=== PATIENT | female | born 1945 | race Caucasian/White ===

== ENCOUNTER → 2023-06-09 10:36 | Outpatient (REF) | payer MEDICARE, BC, SELFPAY | LOC: RAD 10:36 | PROVIDERS: ATTENDING PHYSICIAN Internal Medicine Critical Care Medicine; FAMILY PHYSICIAN Family Medicine | DX: R91.1 Solitary pulmonary nodule (principal) | CPT/HCPCS: 71046 ==

== ENCOUNTER → 2024-02-17 12:35 | Outpatient (REF) | payer MEDICARE, BC, SELFPAY | LOC: RAD 12:35 | PROVIDERS: ATTENDING PHYSICIAN Family Medicine | DX: M25.551 Pain in right hip (principal) | CPT/HCPCS: 73502 ==

== ENCOUNTER → 2024-03-08 19:24 | Outpatient (REF) | payer MEDICARE, BC, SELFPAY | LOC: WDC 19:24 | PROVIDERS: ATTENDING PHYSICIAN Family Medicine | DX: Z12.31 Encounter for screening mammogram for malignant neoplasm of breast (principal) | CPT/HCPCS: 77063; 77067 ==

== ENCOUNTER 2024-05-30 09:06 | Inpatient (IN) | payer MEDICARE, BC, SELFPAY ==
--- NOTE | 2024-05-10 11:12 | CM ---
TC to patient re discharge needs post op.
Patient is to meet with PA this week and will discuss surgery and discharge expectations.
CM explained to patient the goal will be for home with outpatient therapy.
Patient with concerns as she lives alone and her children work.
She would prefer to to go skilled rehab post op.
CM explained to patient most patients go home with outpatient therapy and at this time I would not be able to say wheat her d/c needs would be.
Patient is aware she will be followed by a CM post op and seen by PT/OT to assess her needs and PA will discuss expectations.
[2024-05-12 14:10] LABS: Hematocrit 42.5 % (37.0-47.0); Mean Corp Hgb Conc. 32.9 g/dL (33.0-37.0); Mean Corpuscular Hgb 31.1 pg (27.0-31.0); Mean Corpuscular Volume 94.4 fL (81.0-99.0); Platelet Count 290 10^3/uL (130-400); Red Cell Dist. Width 12.2 % (11.5-14.5)
[2024-05-12 14:27] VITALS: BMI 21.5
[2024-05-12 14:43] LABS: Glycohemoglobin (HgbA1c) 5.3 % (4.0-5.6)
[2024-05-12 15:02] LABS: ALT (SGPT) 27 U/L (0-35); AST (SGOT) 27 U/L (14-36); Albumin 4.6 g/dl (3.5-5.0); Alkaline Phosphatase 89 U/L (38-126); Blood Urea Nitrogen 24 mg/dl (7-17); Calcium 9.7 mg/dl (8.4-10.2); Carbon Dioxide 27 mmol/L (22-30); Chloride 101 mmol/L (98-107); Estimated Creatinine Clearance 60 ml/min; Glucose 80 mg/dl (70-99); Sodium 139 mmol/L (135-145); Total Bilirubin 0.4 mg/dl (0.2-1.3); Total Protein 7.5 g/dl (6.3-8.2); eGFR > 60.00
[2024-05-19 13:33] VITALS: BMI 21.5
[2024-05-30] VITALS (12 sets, daily range): BP systolic 107–141; BP diastolic 59–91; PULSE 59; O2SAT 100; BMI 21.5
[2024-05-30] MEDS: CELEBREX 200 MG PO (10:10)
[2024-05-30] MEDS: TYLENOL 650 MG PO ×5 (10:11→23:28)
[2024-05-30] MEDS: NORMOSOL-R/PLASMALYTE-A 1000 IV ×2 (10:16→17:23)
[2024-05-30] MEDS: DILAUDID 0.25 MG IV (14:27)
[2024-05-30] MEDS: ROXICODONE 5 MG PO (14:27)
--- NOTE | 2024-05-30 15:03 | W.PN.UPDATE ---
Update Note
Progress Note Update
R hip OA s/p R BARRINGTON w/ Dr Lyon 05/30/24
DVT prophylaxis - ASA, b/l venous foot pumps
HTN - + parameters - monitor BP
Mild cognitive impairment - minimize opioids as able
Interstitial lung disease with bronchiectasis
Recurrent pneumonia
History of spontaneous pneumothorax
Pulmonary nodules
- Monitor O2
- IS
HLD
Osteopenia
Vitamin D deficiency
Hearing impairment
History of tobacco abuse
[2024-05-30] MEDS: LIDOCAINE 4% PATCH 2 PATCH TOPICAL (17:21)
[2024-05-30] MEDS: ASPIRIN 325 MG PO (17:22)
[2024-05-30] MEDS: NEURONTIN 100 MG PO (17:22)
[2024-05-30] MEDS: TORADOL 15 MG IV (17:22)
[2024-05-30] MEDS: CYKLOKAPRON 650 MG PO (17:23)
[2024-05-30] MEDS: VITAMIN D3 (cholecalciferol) 25 MCG PO (17:28)
[2024-05-30] MEDS: BACTROBAN 2% OINTMENT 1 APPLIC NASAL (20:07)
[2024-05-30] MEDS: DECADRON 4 MG PO (20:07)
[2024-05-30] MEDS: SENOKOT 17.2 MG PO (20:08)
[2024-05-30] MEDS: ANCEF 5 IV (20:09)
[2024-05-30] MEDS: COLACE 100 MG PO (20:09)
[2024-05-30] MEDS: NEURONTIN 300 MG PO (22:56)
[2024-05-30] MEDS: PEPCID 20 MG PO (22:57)
[2024-05-30] MEDS: ROXICODONE 10 MG PO (23:35)
[2024-05-31] MEDS: ANCEF 5 IV (03:01)
[2024-05-31] MEDS: TYLENOL 650 MG PO ×2 (03:01→12:33)
[2024-05-31 03:10] VITALS: BP 106/61
[2024-05-31 07:14] VITALS: BP 115/68
[2024-05-31] MEDS: ROXICODONE 10 MG PO (08:14)
[2024-05-31] MEDS: DECADRON 4 MG PO (08:15)
[2024-05-31] MEDS: CELEBREX 200 MG PO (08:15)
[2024-05-31] MEDS: LIDOCAINE 4% PATCH 2 PATCH TOPICAL (08:15)
[2024-05-31] MEDS: COLACE 100 MG PO (08:16)
[2024-05-31] MEDS: ASPIRIN 325 MG PO (08:16)
[2024-05-31] MEDS: SENOKOT 17.2 MG PO (08:16)
[2024-05-31] MEDS: NEURONTIN 100 MG PO (08:17)
[2024-05-31] MEDS: BACTROBAN 2% OINTMENT 1 APPLIC NASAL (08:17)
[2024-05-31] MEDS: VITAMIN D3 (cholecalciferol) 25 MCG PO (08:17)
--- NOTE | 2024-05-31 09:37 | W.PN.ORTHO ---
Today's Communication / Plan
-
Await PT and OT recs.
D/c later today if remaining clinically stable.
Assessment
.
Distal Motor Intact: Yes
Dressing:
Old scant incisional bleeding. Dressing otherwise C/D/I.
Assessment:
R hip OA s/p Lorena andrea/ Dr Lyon 05/30/24
DVT prophylaxis - ASA, b/l venous foot pumps
HTN - + parameters - BPs stable
Mild cognitive impairment - continue to minimize opioids as able
Interstitial lung disease with bronchiectasis
Recurrent pneumonia
History of spontaneous pneumothorax
Pulmonary nodules
- O2 stable on RA, lungs CTA b/l
HLD
Osteopenia
Vitamin D deficiency
Hearing impairment
History of tobacco abuse
Plan
.
Surgery / Date: Lorena andrea/ Dr Lyon 05/31/24
DVT Prophylaxis: Aspirin
Activity:
Out of bed.
PT/OT
Discharge Plan: Home w/ Outpatient PT (vs home w/ VN)
Subjective
.
.:
Patient resting comfortably in her bed.
R hip pain well controlled w/ current pain meds.
Denies any new significant complaints.
Eager for potential d/c today.
Vital Signs and Labs
.
Vital Signs and Labs:
Lab Results
05/12/24 13:08
05/12/24 13:08
Temp Pulse Resp BP Pulse Ox
97.6 F 57 16 115/68 96
05/31/24 07:14 05/31/24 07:14 05/31/24 07:14 05/31/24 07:14 05/31/24 07:14
Non-invasive Hgb result: 14.6
Physical Exam
-
HEENT: No pallor, cyanosis, or jaundice. Throat clear.
NECK: Supple. No JVD.
RESPIRATORY: Lungs clear to auscultation.
CVS: S1, S2 normal. RRR.�
ABDOMEN: Soft, non-tender. No distension.
EXTREMITIES: Strength equal, no calf pain with palpation/dorsiflexion. Calves soft.
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 Mild cognitive deficits at baseline. purse maker grossly intact
[2024-05-31 10:09] VITALS: BP 118/61; PULSE 66; O2SAT 99
[2024-05-31] MEDS: ZOFRAN 4 MG IV (10:48)
[2024-05-31] MEDS: TYLENOL PO (10:55)
[2024-05-31 11:09] VITALS: BP 112/61
[2024-05-31 11:17] VITALS: BP 107/69; BP 113/67; PULSE 62
--- NOTE | 2024-05-31 12:01 | CM ---
Met with pt at bedside
Pt reports she lives alone in a 1 story condo; 6 steps to enter - Family to assist when discharged to home
Independent at baseline, ambulates with no device
DME - rolling walker, single point cane, hip kit, raised toilet seat
SNF/HH - denies past hx
Has ride home
PCP - Scotty Ceballos
Pharm - [facility]
Has appt scheduled tomorrow at [facility] for outpatient PT. Has Rx and has transport
Given IMM
Plan - home with outpatient PT
--- NOTE | 2024-05-31 12:19 | W.DS.TRANS ---
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
-
Discharge Instructions:
Sleep Apnea Risk Low
Discharge Diagnosis/Procedures R hip OA s/p R BARR[place] w/ Dr Lyon 05/30/23
Diet Regular
Activity As tolerated,With Walker
Driving Restrictions Not until seen by your Dr
Bathing Restrictions OK to Shower
Other Services PT
Wound Care Dressing to be removed 1 week post-surgery.
Matheus to be removed at 2 week follow-up with
surgeon's office.
Instructions:
Stand-Alone Forms: Total Hip/Knee Replacement D/C
Changes to Home Medications: Yes
Discharge Medications:
DC Medications w/original date entered in [facility]
cholecalciferol (vitamin D3) 25 mcg (1,000 unit) tablet (Vitamin D3) 25 mcg PO DAILY 05/11/24
lbafcpdw-[id number]-[id number] 8 mg-folic 400 mcg-K 50 mcg-lutein 300 mcg tablet (Centrum Silver Women) 1 tab PO DAILY 05/11/24
celecoxib 200 mg capsule 200 mg PO DAILY anti-inflammatory #14 caps 05/12/24
dexamethasone 4 mg tablet 4 mg PO BID inflammation #6 tabs 05/12/24
famotidine 20 mg tablet 20 mg PO HS GI prophylaxis #30 tabs 05/12/24
gabapentin 300 mg capsule 300 mg PO HS sleep/pain #10 caps 05/12/24
mupirocin 2 % topical ointment 1 applic topical BID infection prevention #1 tube 05/12/24
ondansetron 4 mg disintegrating tablet 4 mg PO Q6H PRN n/v #20 tabs 05/12/24
oxycodone 5 mg tablet 5 mg PO Q6H PRN 1 tab moderate pain, 2 tabs severe pain #30 tabs 05/12/24
acetaminophen 325 mg tablet 650 mg (2 x 325 mg) PO Q4HWA #60 tabs 05/31/24
amlodipine 5 mg tablet 5 mg PO HS #1 tab 05/31/24
aspirin 325 mg tablet 325 mg PO DAILY #30 tabs 05/31/24
docusate sodium 100 mg capsule 100 mg PO BID #30 caps 05/31/24
gabapentin 100 mg tablet 100 mg PO BID@0800,1600 neuropathic pain #1 tab 05/31/24
lidocaine 4 % topical patch 2 patch topical DAILY #30 ea 05/31/24
sennosides 8.6 mg tablet (Judith-laurence) 17.2 mg (2 x 8.6 mg) PO BID #30 tabs 05/31/24
Home Medication Changes
celecoxib 200 mg capsule 200 mg PO DAILY anti-inflammatory #14 caps 05/12/24
dexamethasone 4 mg tablet 4 mg PO BID inflammation #6 tabs 05/12/24
famotidine 20 mg tablet 20 mg PO HS GI prophylaxis #30 tabs 05/12/24
gabapentin 300 mg capsule 300 mg PO HS sleep/pain #10 caps 05/12/24
mupirocin 2 % topical ointment 1 applic topical BID infection prevention #1 tube 05/12/24
ondansetron 4 mg disintegrating tablet 4 mg PO Q6H PRN n/v #20 tabs 05/12/24
oxycodone 5 mg tablet 5 mg PO Q6H PRN 1 tab moderate pain, 2 tabs severe pain #30 tabs 05/12/24
acetaminophen 325 mg tablet 650 mg (2 x 325 mg) PO Q4HWA #60 tabs 05/31/24
aspirin 325 mg tablet 325 mg PO DAILY #30 tabs 05/31/24
docusate sodium 100 mg capsule 100 mg PO BID #30 caps 05/31/24
gabapentin 100 mg tablet 100 mg PO BID@0800,1600 neuropathic pain #1 tab 05/31/24
lidocaine 4 % topical patch 2 patch topical DAILY #30 ea 05/31/24
sennosides 8.6 mg tablet (Judith-laurence) 17.2 mg (2 x 8.6 mg) PO BID #30 tabs 05/31/24
Pending Results: No
== END 2024-05-31 13:18 | disposition home or self-care (01) | DRG 470 ==
LOC: 2 SOUTH 09:06
PROVIDERS: ADMITTING PHYSICIAN Specialist; FAMILY PHYSICIAN Family Medicine
PROC: 0SR902A Replacement of Right Hip Joint with Metal on Polyethylene Synthetic Substitute, Uncemented, Open Approach (ICD-10-PCS; 2024-05-30)
DX: M16.11 Unilateral primary osteoarthritis, right hip (principal); J84.9 Interstitial pulmonary disease, unspecified; I10 Essential (primary) hypertension; E55.9 Vitamin D deficiency, unspecified; J47.9 Bronchiectasis, uncomplicated; H91.90 Unspecified hearing loss, unspecified ear; G31.84 Mild cognitive impairment of uncertain or unknown etiology; M85.80 Other specified disorders of bone density and structure, unspecified site; E78.2 Mixed hyperlipidemia; Z87.891 Personal history of nicotine dependence; Z79.82 Long term (current) use of aspirin; Z79.899 Other long term (current) drug therapy
CPT/HCPCS: 73502; 80053; 83036; 85027; 87070; 93005; 97110; 97116; 97162; 97166; 97530; 97535; C1713; C1776

== ENCOUNTER 2024-06-07 13:56 | Inpatient (IN) | payer MEDICARE, BC, SELFPAY ==
[2024-06-07] VITALS (26 sets, daily range): BP systolic 103–155; BP diastolic 57–84; BMI 21.7; BMI 23.7
[2024-06-07 09:43] LABS: Hematocrit 39.6 % (37.0-47.0); Hemoglobin 14.1 g/dL (12.0-16.0); Mean Corp Hgb Conc. 35.6 g/dL (33.0-37.0); Mean Corpuscular Hgb 31.7 pg (27.0-31.0); Mean Platelet Volume 9.5 fL (7.4-10.4); Platelet Count 356 10^3/uL (130-400); Red Blood Cell Count 4.45 10^6/uL (4.20-5.40); Red Cell Dist. Width 12.4 % (11.5-14.5); White Blood Cell Count 9.3 10^3/uL (4.8-10.8)
[2024-06-07 09:48] LABS: ALT (SGPT) 25 U/L (0-35); AST (SGOT) 26 U/L (14-36); Albumin 3.1 g/dl (3.5-5.0); Alkaline Phosphatase 101 U/L (38-126); Blood Urea Nitrogen 55 mg/dl (7-17); Calcium 9.3 mg/dl (8.4-10.2); Carbon Dioxide 18 mmol/L (22-30); Chloride 93 mmol/L (98-107); Glucose 96 mg/dl (70-99); Lipase 24 U/L (23-300); Potassium 4.8 mmol/L (3.5-5.1); Sodium 123 mmol/L (135-145); Total Bilirubin 1.3 mg/dl (0.2-1.3); Total Protein 5.8 g/dl (6.3-8.2); eGFR 35.45
[2024-06-07 09:50] LABS: Band Neutrophils 28 % (0-3); Lymphocytes 10 % (20-51); Metamyelocytes 1 % (-); Monocytes 2 % (2-9); Platelets Checked Yes; Segmented Neutrophils 59 % (42-75)
[2024-06-07 09:51] LABS: Normal RBC Morphology Yes; Total Cells Counted 100
[2024-06-07 09:52] LABS: COVID-19 Antigen Negative (Negative)
--- NOTE | 2024-06-07 10:00 | ED.GENMED ---
History of Present Illness
General
Chief Complaint: Abdominal Symptoms
Time Seen by Provider: 06/07/24 10:00
History of Present Illness
History of Present Illness:
TIME OF INITIAL ENCOUNTER: 9:00 AM
HPI: Patient had a right-sided hip replacement 8 days ago. 4 days ago, she developed nausea and vomiting. She has been having chest cramping and now abdominal cramping. She has not had diarrhea. She denies any prior abdominal surgeries.
EXAM:
GENERAL: The patient appears somewhat uncomfortable
HEENT: Dry oral mucosa
CARDIOVASCULAR: No murmurs, normal heart rate, regular rhythm, No chest wall tenderness
PULMONARY: No respiratory distress, breath sounds are clear and equal
ABDOMEN: Borderline positive peritoneal signs dry, somewhat firm abdomen with diffuse abdominal tenderness
NEUROLOGIC: Fair strength all extremities, no coordination deficits
PSYCHIATRIC: Appropriate mental status, normal insight and judgement
EXTREMITIES: Nontender, no edema, moves all extremities equally
SKIN: No rash, no lesions
NUMBER AND COMPLEXITY OF PROBLEMS ADDRESSED AT THE ENCOUNTER
� Chronic conditions affecting care: High blood pressure, anxiety, right hip replacement 2024
� Acute Exacerbation and/or Progression of Chronic Illness: This is an acute problem
� Differential Diagnosis includes: Dehydration, LONG, viral syndrome, UTI, electrolyte abnormality, bowel perforation, mesenteric adenitis
AMOUNT AND/OR COMPLEXITY OF DATA TO BE REVIEWED AND ANALYZED
� I performed an independent evaluation of and my interpretation is:
EKG:
CT: I personally reviewed CT imaging and I agree with radiologist interpretation that there is bowel perforation along with free fluid
X-rays:
Laboratory Studies: White count and hemoglobin are normal however the patient does have bandemia with 28% bands, LONG noted, hyponatremia also noted, low bicarb noted
Other:
� Review of other/old records: I reviewed the notes when patient was here recently in which Dr. Lyon performed the right hip surgery
� Clinical information was obtained by an independent historian: I spoke to daughter at bedside
� Prescriptions/Medications Considered but not given:
� Further testing considered but not performed:
RISK OF COMPLICATIONS AND/OR MORBIDITY OR MORTALITY OF PATIENT MANAGEMENT
� Social determinants of health affecting care: Lives at home
� Discussion with other providers: I discussed case with Dr. Cyr and then I notified general surgery who recommended messaging colorectal surgery. I messaged Dr. Moreno at 1:08 PM. I also talked to Dr. Mills who said he will
continue to try to get a hold of colorectal surgery.
� Escalation of care including admission/observation vs risk of discharge considered: The patient was premedicated for CT as she does have a history of hives related to iodine by IV in the past. She denied
anaphylactic/angioedema type of symptoms in the past. CT imaging very concerning for bowel perforation likely involving large bowel. Given the concerns for sepsis with bandemia and elevated lactic, Zosyn was given and the patient did receive 2 L
of IV fluid while in the emergency department.
ANY OTHER UPDATES:
Phy Exam
Physical Exam
Physical Exam:
See HPI
Course
Orders/Labs/Results
Orders:
Orders
06/07/24 09:14
Electrocardiogram (*1) Urgent
Reason for Study: Abdominal Pain
EKG- Treatment ONCE
06/07/24 09:19
COVID-19 Antigen Urgent
Source: Nasal Swab
Complete Blood Count/With Diff Urgent
Comprehensive Metabolic Panel Urgent
Lipase Urgent
Manual Differential Urgent
Serum Osmolality Urgent
Comment: ADD ON\\
Influenza A+B Rapid Molecular Urgent
ENDY Source: Nasal Swab
Specimen Description:
06/07/24 10:01
Add On- LAB Urgent
Tests Added?: serum osm
06/07/24 10:18
CT Abd/pelvis W Iv Cont Urgent
Comment:
Reason For Exam: diffuse abd pain
0.9% Sodium Chloride 500 ml [Nss] 500 ml IV BOLUS
06/07/24 10:23
Dexamethasone Sod Phosphate [Decadron] 10 mg IV NOW STA
Diphenhydramine [Benadryl] 25 mg IV NOW STA
06/07/24 10:26
Lactic Acid Q4H
Comment: CANCEL 2nd LACTIC ACID IF 1st LACTIC ACID IS LESS THAN 2
Blood Culture Q30M
ENDY Source: Blood/Venous
Specimen Description:
06/07/24 10:27
Osmolality, Random Urine Urgent
Date Specimen was Collected: 06/07/24
Time Specimen was Collected: 10:26
Urinalysis Reflex To Culture Urgent
Date Specimen was Collected: 06/07/24
Time Specimen was Collected: 10:27
Urine Microscopic Reflex Cult Urgent
Urine Sodium Urgent
Date Specimen was Collected: 06/07/24
Time Specimen was Collected: 10:26
Blood Culture Q30M
ENDY Source: Blood/Venous
Specimen Description:
Urine Culture Urgent
ENDY Source: U
Specimen Description:
Date Specimen was Collected: 06/07/24
Time Specimen was Collected: 10:27
06/07/24 12:44
0.9% Sodium Chloride 500 ml [Nss] 500 ml IV BOLUS
Piperacillin/Tazo 3.375 Gram [Zosyn] 3.375 gram in 50 ml IV NOW
06/07/24 13:20
Consult Surgery [SURGICAL CONSULT] Stat
Consulting Provider: Thien Hurst
Was physician already notified: Yes
Reason for consult: bowel perforation
06/07/24 13:22
ColoRectal Surgery Consult Stat
Consulting Provider: Jesse Moreno
Was physician already notified: Yes
Reason for consult: bowel perforation
06/07/24 13:24
0.9% Sodium Chloride 1000 ml [Nss] 1,000 ml IV BOLUS
06/07/24 14:15
Lactic Acid Q4H
Comment: CANCEL 2nd LACTIC ACID IF 1st LACTIC ACID IS LESS THAN 2
Abnormal Lab Results
06/07/24 06/07/24 06/07/24
09:19 10:26 10:27
MCH 31.7 H pg
(27.0-31.0)
Abs Neuts (Manual) 8.0 H 10^3/uL
(1.4-6.5)
Band Neutrophils 28 H %
(0-3)
Lymphocytes (Manual) 10 L %
(20-51)
Sodium 123 L mmol/L
(135-145)
Chloride 93 L mmol/L
(98-107)
Carbon Dioxide 18 L mmol/L
(22-30)
BUN 55 H mg/dl
(7-17)
Creatinine 1.5 H mg/dL
(0.6-1.0)
Lactic Acid 4.3 H* mmol/L
(0.7-2.0)
Total Protein 5.8 L g/dl
(6.3-8.2)
Albumin 3.1 L g/dl
(3.5-5.0)
Urine Ketones 2+ A
(Negative)
Ur Occult Blood Reflex 1+ A
(Negative)
Urine Bilirubin 1+ A
(Negative)
Urine Urobilinogen 2+ A
(Neg - 1+)
Leukocyte Esterase Rfl 1+ A
(Negative)
Urine Bacteria (Reflex) Moderate A
(Negative)
Urine Sodium 6 L mmol/L
(30-90)
Urine Albumin (Reflex) 3+ A
(Neg - Trace)
06/07/24 09:19
06/07/24 09:19
Vital Signs
Initial and Last Documented VS:
Initial Vital Signs
Temp Pulse Resp BP Pulse Ox
36.4 C 87 20 103/62 97
06/07/24 09:10 06/07/24 09:10 06/07/24 09:10 06/07/24 09:10 06/07/24 09:10
Last Documented Vital Signs
Temp Pulse Resp BP Pulse Ox
36.8 C 82 26 120/59 95
06/07/24 13:19 06/07/24 13:00 06/07/24 13:00 06/07/24 13:00 06/07/24 13:00
*Critical Care Note
Total Time (30-74mins, 75-104mins- exclusive of procedures): 60
comment:
The patient has an elevated lactic acid level along with bandemia. CT is markedly abnormal. I discussed case emergently with general surgery who recommended colorectal surgery to be involved. Dr. Mills was able to contact colorectal surgery. The
patient was given 2 L of IV fluids as well as IV Zosyn emergently.
ED Attending Note
-
Portions of this chart may have been created with voice recognition software.� Occasional wrong word or��sound alike� substitutions may have occurred due to the inherent limitations of voice recognition software.
Discharge Plan
Departure
Patient Disposition: Admit
Date of Disposition: 06/07/24
Time of Disposition: 12:49
Presentation/result/management discussed w/ accepting MD/DO: Hospitalist
Discharge Problem:
Perforation bowel
Prescriptions:
No Action
cholecalciferol (vitamin D3) [Vitamin D3] 25 mcg (1,000 unit) Tablet
25 mcg PO DAILY
Centrum Silver Women 8 mg iron-400 mcg-50 mcg Tablet
1 tab PO DAILY
celecoxib 200 mg capsule
200 mg PO DAILY Qty: 14 0RF
Rx Instructions:
*take with food
*space out 2 hours from aspirin
famotidine 20 mg tablet
20 mg PO HS Qty: 30 0RF
gabapentin 300 mg capsule
300 mg PO HS Qty: 10 0RF
aspirin 325 mg Tablet
325 mg PO DAILY Qty: 30 0RF
Rx Instructions:
Take daily x4 weeks for blood clot prevention; then resume Aspirin 81 mg daily.
docusate sodium 100 mg Capsule
100 mg PO BID Qty: 30 0RF
lidocaine 4 % Adhesive Patch,Medicated
2 patch topical DAILY Qty: 30 0RF
Rx Instructions:
apply sides of right thigh/hip.
amlodipine 5 mg Tablet
5 mg PO HS Qty: 1 0RF
Rx Instructions:
HOLD IF systolic blood pressure <130 while on Oxycodone
gabapentin 100 mg Tablet
100 mg PO BID@0800,1600 Qty: 1 0RF
Rx Instructions:
Patient takes at home. Bedtime dose increased to accommodate for post-surgical pain/sleep.
sennosides [Judith-laurence] 8.6 mg tablet
17.2 mg PO BID
acetaminophen 325 mg tablet
650 mg PO Q4HPRN PRN (Reason: mild pain)
ondansetron 4 mg tablet,disintegrating
4 mg PO Q6HPRN PRN (Reason: n/v)
Rx Instructions:
take 1/2h b/f pain med if recurrent nausea
allow to dissolve in mouth w/o water
oxycodone 5 mg tablet
5 mg PO Q6HPRN PRN (Reason: 1 tab moderate pain, 2 tabs severe pain)
Referrals:
Scotty Ceballos MD [Family Provider] -
Interventions
Interventions:
*Risk Screen - Suicide Last Done: 06/07/24 09:10
*General Assessment Last Done: 06/07/24 09:10
*Neglect/Abuse Screening Last Done: 06/07/24 09:10
*ED COVID-19 Vaccine History Last Done: 06/07/24 10:17
SA-Pttgde-Oilmwviyrp Assessment Last Done: 06/07/24 12:22
Discharge Date and Time
Print Language: ISRAELI
[2024-06-07] MEDS: DECADRON 10 MG IV (10:45)
[2024-06-07] MEDS: BENADRYL 25 MG IV (10:45)
[2024-06-07] MEDS: NSS 500 IV ×2 (10:45→13:12)
[2024-06-07 10:47] LABS: Urine Albumin 3+ (Neg - Trace); Urine Bilirubin 1+ (Negative); Urine Character Cloudy (Clear); Urine Color Amber; Urine Glucose Negative (Negative); Urine Ketone 2+ (Negative); Urine Leukocyte 1+ (Negative); Urine Nitrite Negative (Negative); Urine Occult Blood 1+ (Negative); Urine Specific Gravity 1.025 (<1.030); Urine Urobilinogen 2+ (Neg - 1+)
[2024-06-07 10:57] LABS: Urine Granular Cast >15 /LPF (0)
[2024-06-07 10:58] LABS: Urine Calcium Oxalate Crystals Seen
[2024-06-07 10:59] LABS: Urine Bacteria Moderate (Negative); Urine Squamous Cell 0-2 /LPF (Few)
[2024-06-07 11:00] LABS: Urine White Cell 0-2 /HPF (0-5)
[2024-06-07 11:01] LABS: Urine Red Blood Cell None Seen /HPF (0-2)
[2024-06-07 11:03] LABS: Urine Sodium 6 mmol/L (30-90)
[2024-06-07 11:14] LABS: Osmolality Urine 548 mOsm/kg (300-900)
[2024-06-07 11:15] LABS: Lactic Acid 4.3 mmol/L (0.7-2.0)
[2024-06-07 11:59] LABS: Osmolality Serum 277 mOsm/kg (275-300)
[2024-06-07] MEDS: ZOSYN 50 IV ×2 (13:13→20:04)
--- NOTE | 2024-06-07 13:29 | W.PN.UPDATE ---
Update Note
Progress Note Update
Patient with acute abdomen due to acute bowel perforation. Case discussed with general surgery and colorectal surgery over [place] [facility]. As per that group discussion colorectal surgery is seeing the patient immediately. I have ordered a 3rd L of
normal saline. Will put bridging orders in. Full H&P to follow.
--- NOTE | 2024-06-07 13:31 | HPS.HSE ---
Family Physician
-
Family Physician: Scotty Ceballos
Chief Complaint
-
Abdominal pain, nausea, vomiting
History of Present Illness
79 y/o F with PMHx essential HTN, R hip BARRINGTON on 05/30/24, mild cognitive impairment, interstitial lung disease, bronchiectasis, h/o spontaneous PTX who presents with chief complaints of abdominal pain, nausea, vomiting. Patient symptoms started
approximately 4 days ago. She has had associated abdominal cramping as well as reports of chest cramping. Denies diarrhea.
In the ER CT scan of the abdomen pelvis showed bowel perforation, likely sigmoid.
Medical History
Past Medical History
Past Medical History: Reports Other (essential HTN, R hip B[place] on 05/30/24, mild cognitive impairment, interstitial lung disease, bronchiectasis, h/o spontaneous PTX )
Past Surgical History: Reports Orthopedic (R BARRINGTON on 05/30/24)
Social History
Tobacco: Former Smoker
Alcohol: Occasional
Drug: None
Family History
Family History: Not pertinent
Allergies / Home Medications
Allergies reflects when Allergies were last updated in [employer].
Home Medications with original date entered in [employer]
Allergy/Medication List:
Allergies
Allergy/AdvReac Type Severity Reaction Status Date / Time
iodine Allergy Hives Verified 06/07/24 09:13
Home Medications
cholecalciferol (vitamin D3) 25 mcg (1,000 unit) tablet (Vitamin D3) 25 mcg PO DAILY 05/11/24
yjuoabxh-riqz-weig 8 mg-folic 400 mcg-K 50 mcg-lutein 300 mcg tablet (Centrum Silver Women) 1 tab PO DAILY 05/11/24
celecoxib 200 mg capsule 200 mg PO DAILY anti-inflammatory #14 caps 05/12/24
famotidine 20 mg tablet 20 mg PO HS GI prophylaxis #30 tabs 05/12/24
gabapentin 300 mg capsule 300 mg PO HS sleep/pain #10 caps 05/12/24
amlodipine 5 mg tablet 5 mg PO HS #1 tab 05/31/24
aspirin 325 mg tablet 325 mg PO DAILY #30 tabs 05/31/24
docusate sodium 100 mg capsule 100 mg PO BID #30 caps 05/31/24
gabapentin 100 mg tablet 100 mg PO BID@0800,1600 neuropathic pain #1 tab 05/31/24
lidocaine 4 % topical patch 2 patch topical DAILY #30 ea 05/31/24
acetaminophen 325 mg tablet 650 mg PO Q4HPRN PRN mild pain 06/07/24
ondansetron 4 mg disintegrating tablet 4 mg PO Q6HPRN PRN n/v 06/07/24
oxycodone 5 mg tablet 5 mg PO Q6HPRN PRN 1 tab moderate pain, 2 tabs severe pain 06/07/24
sennosides 8.6 mg tablet (Judith-laurence) 17.2 mg PO BID 06/07/24
Review of Systems
-
History Source: Patient
A 12 point ROS was completed and negative except as noted: Yes
Physical Exam
Vital Signs
Vital Signs
Temp Pulse Resp BP Pulse Ox
98.2 F 82 26 120/59 95
06/07/24 13:19 06/07/24 13:00 06/07/24 13:00 06/07/24 13:00 06/07/24 13:00
Physical Exam
General: Other (.)
Laboratory Results
-
06/07/24 09:19
06/07/24 09:19
Laboratory Results
Lactic Acid 4.3 mmol/L (0.7-2.0) H* 06/07/24 10:26
Total Bilirubin 1.3 mg/dl (0.2-1.3) 06/07/24 09:19
AST 26 U/L (14-36) 06/07/24 09:19
ALT 25 U/L (0-35) 06/07/24 09:19
Alkaline Phosphatase 101 U/L (38-126) 06/07/24 09:19
Lipase 24 U/L (23-300) 06/07/24 09:19
Impression/Plan
-
Gen: appears in pain, Awake and alert, NCAT
Eyes: EOMI, PERRLA, no scleral icterus.
Neck: supple.
CV: RRR, +S1/S2, no m/r/g.
Resp: CTAB anteriorly, no rales, wheezes, or rhonchi.
Abd: Abdomen is moderately distended with hypoactive bowel sounds. There is exquisite, diffuse tenderness to palpation with either significant guarding or surgical abdomen.
Skin: No rashes.
Neuro: CN 2-12 intact, non-focal.
Psych: appears anxious due to pain
CT A/P: New findings suggesting perforated bowel probable sigmoid colon with associated retroperitoneal and intraperitoneal free air, air-fluid levels suggesting abscess formation and extraluminal stool. Mild small bowel dilatation probably ileus
due to reactive change. New. Tiny bilateral pleural effusions. New. Too small to characterize hypodense left renal lesion likely a benign cyst. Mild lingular bronchiectasis. Stable. This case was discussed with Dr. Dodd on 06/07/2024 at
12:50 PM. Critical value: Free air.
Acute sigmoid bowel perforation with acute surgical abdomen:
-as per prior update note, surgical services notified within minutes of when I was called to admit this patient
-2L NS ordered by ER, I have ordered a 3rd L NS followed by NS @ 125cc/hr
-pt clearly needs ex-lap emergently
-admission orders placed to ICU
-morphine/zofran PRN
Other problems:
Essential HTN: Hold Norvasc for now
R hip BARRINGTON on 05/30/24: c/s ortho
Mild cognitive impairment
Interstitial lung disease with bronchiectasis
h/o spontaneous PTX
FULL
SCDs (no pharmacological DVT prophylaxis at this moment as patient is likely going to the OR imminently)
--- NOTE | 2024-06-07 14:13 | CON.CRS ---
Consultation
-
Date/Time Consultation Requested: 06/07/2024, 13:13
Date/Time Consultation Performed: 06/07/2024, 14:13
Requesting Provider: Jones Sorensen MD
Performing Provider: Jesse Moreno MD
Reason for Consultation: perforated sigmoid colon
Medical History
-
Chief Complaint: abdominal pain
History of Present Illness:
71-year-old female, postop day 8 from a right hip replacement, presents to [facility] ER due to abdominal pain and nausea. The patient states this started about 5 days ago at night. Her symptoms started with abdominal pain which has
progressed significantly over the past few days. She started having nausea and vomited 4 days ago and every day since. Her last bowel movement was about 6 days ago and she has had only 2 bowel movements since surgery. She has been taking
oxycodone every 6 hours and alternating with Tylenol since her surgery. She has also been on a steroid Dosepak which ended the night that her abdominal pain started. Currently she feels distended and nauseous. The apex of her pain was last night
where it was so extremely painful that it woke her up out of sleep. She her last colonoscopy was 2 years ago elsewhere and was all negative per patient. She has never had abdominal surgery before. She denies a family history of rectal or colon
cancer. Currently she is on aspirin 325 mg and is on no other blood thinners.
In the ER her vitals are normal. WBC is 9.3. Lactic acid is 4.1. CT of the abdomen and pelvis showed perforated bowel probable sigmoid colon with an associated retroperitoneal intraperitoneal free air, air-fluid level suggesting abscess
formation, and extraluminal stool. Given these findings, we have been consulted for surgical opinion.
Past Medical History
Past Medical History: HTN and Other (interstitial lung disease, bronchiectasis, h/o spontaneous PTX)
Past Surgical History: Orthopedic (right hip surgery - 8 days prior to admission) and Other (breast lumpectomy - negative)
Social History
Tobacco: Former Smoker
Alcohol: Occasional
Drug: None
Family History
Family History: Reviewed & Not Pertinent
Allergies / Home Medications
Allergy/AdvReac Type Severity Reaction Status Date / Time
iodine Allergy Hives Verified 06/07/24 09:13
�Medication �Instructions �Recorded �Confirmed �Type
cholecalciferol (vitamin D3) 25 25 mcg PO DAILY 05/11/24 06/07/24 History
mcg (1,000 unit) tablet (Vitamin
D3)
batrwonn-fbdd-vehg 8 mg-folic 400 1 tab PO DAILY 05/11/24 06/07/24 History
mcg-K 50 mcg-lutein 300 mcg tablet
(Centrum Silver Women)
celecoxib 200 mg capsule 200 mg PO DAILY anti-inflammatory 05/12/24 06/07/24 Rx
#14 caps
famotidine 20 mg tablet 20 mg PO HS GI prophylaxis #30 tabs 05/12/24 06/07/24 Rx
gabapentin 300 mg capsule 300 mg PO HS sleep/pain #10 caps 05/12/24 06/07/24 Rx
amlodipine 5 mg tablet 5 mg PO HS #1 tab 05/31/24 06/07/24 Rx
aspirin 325 mg tablet 325 mg PO DAILY #30 tabs 05/31/24 06/07/24 Rx
docusate sodium 100 mg capsule 100 mg PO BID #30 caps 05/31/24 06/07/24 Rx
gabapentin 100 mg tablet 100 mg PO BID@0800,1600 05/31/24 06/07/24 Rx
neuropathic pain #1 tab
lidocaine 4 % topical patch 2 patch topical DAILY #30 ea 05/31/24 06/07/24 Rx
acetaminophen 325 mg tablet 650 mg PO Q4HPRN PRN mild pain 06/07/24 06/07/24 History
ondansetron 4 mg disintegrating 4 mg PO Q6HPRN PRN n/v 06/07/24 06/07/24 History
tablet
oxycodone 5 mg tablet 5 mg PO Q6HPRN PRN 1 tab moderate 06/07/24 06/07/24 History
pain, 2 tabs severe pain
sennosides 8.6 mg tablet (Judith-laurence) 17.2 mg PO BID 06/07/24 06/07/24 History
Review of Systems
-
History Source: Patient
Abdomen/GI: Abdominal Pain, Nausea, Vomiting and Constipated
A 10 point review of systems was completed, and was negative except as per HPI.
Physical Exam
Vital Signs
Temp 98.2 F 06/07/24 13:19
Pulse 82 06/07/24 13:00
Resp Rate 26 06/07/24 13:00
Blood pressure 120/59 06/07/24 13:00
SaO2 95 06/07/24 13:00
06/06/24 06/07/24 06/08/24
06:59 06:59 06:59
Actual Weight 64.7 kg
Body Mass Index (BMI) 21.7
Lab Results / Allergies
06/07/24 09:19
06/07/24 09:19
WBC 9.3 10^3/uL (4.8-10.8) 06/07/24 09:19
Hgb 14.1 g/dL (12.0-16.0) 06/07/24 09:19
Hct 39.6 % (37.0-47.0) 06/07/24 09:19
Plt Count 356 10^3/uL (130-400) 06/07/24 09:19
Allergy/AdvReac Type Severity Reaction Status Date / Time
iodine Allergy Hives Verified 06/07/24 09:13
Physical Exam
General: Other (in pain)
GI: Tender (severe tenderness in all four quadrants) and Distended
Skin: Warm
Neuro: AO x 3
Data Reviewed
-
CT Scan: Image Personally Visualized and interpreted, Report Reviewed by me, Discussed with Patient and Discussed with Family
Labs: Labs Reviewed by me, Discussed with Physician, Discussed with Patient and Discussed with Family
Assessment / Plan
-
Assessment: 79-year-old female with right hip replacement 5 days ago presents to [place] ER complaining of abdominal pain, distention, and vomiting for the past 5 days, found to have a perforation in the sigmoid colon with retro and
intraperitoneal free air as well as extraluminal stool
Plan:
-Patient requires an urgent exploratory laparotomy given the findings on CT. Discussed this with patient and daughter Susanna at bedside. Patient is agreeable for surgery.
-Wound RN for colostomy marking
-N.p.o.
-Continue IV antibiotics
-Teds and SCDs for OR
-ICU level of care
-Plan for surgery in the next 1 to 2 hours. Discussed at length with myself, Dr. Moreno, and patient and daughter at bedside.
--- NOTE | 2024-06-07 14:30 | WOUNDNOTE ---
WON RN NOTE: Stoma sited patient as requested, for surgery today. Abdomen distended and patient having too much pain to assess while sitting or standing. No history of abdominal surgery states patient. LUQ marked 8cm from midline and 3.5cm proximal
from umbilical line. LLQ marked 6.5cm from midline and 3.5cm distal from umbilical line. RUQ marked 7.5cm from midline and 4cm proximal from umbilical line. RLQ marked 7.5cm from midline and 3.5cm distal from umbilical line. Patient and daughter at
bedside aware that surgeon has final decision on location if ostomy needed. Will follow.
[2024-06-07 15:00] LABS: INR 1.11; PT 14.6 Sec (11.4-14.6)
[2024-06-07 15:01] LABS: APTT 27.5 Sec (23.4-35.0); Lactic Acid 1.8 mmol/L (0.7-2.0)
[2024-06-07] MEDS: NSS 1000 IV (15:09)
--- NOTE | 2024-06-07 19:34 | W.IMMPOSTOP ---
Surgical Immed Post Op Note
-
Primary Surgeon: Jesse Moreno MD
Assisting Surgeon: CURTIS Bowman
Pre-op Diagnosis: Pneumoperitoneum
Post-op Diagnosis: Perforated stercoral colitis
Procedure Performed: Exploratory laparotomy, lysis of his adhesions, sigmoidectomy, creation of end colostomy
Anesthesia Type: General
Specimen / Cultures: Sigmoid
Estimated Blood Loss: 75
IVF: 3.7 L
UOP: 400 mL
Complications: None
Operative Findings: Identified feculent ascites on entry; carefully freed up adhesions between the omentum and the small bowel as well as interloop adhesions between the small bowel and sigmoid colon; identified a 5 x 3 cm patch of necrotic wall of
the mid sigmoid colon with large perforation and stool within the abdomen; in order to improve visualization, irrigated the abdomen with 4 L of warm saline; ran the large bowel from the cecum to the descending colon which appeared healthy and normal
in caliber; freed up the small bowel along its entire length from interloop adhesions and rind and no perforations or ischemic portions of the small bowel identified; confirmed NGT placement by palpating the stomach; the anterior wall of the stomach
and first portion of the duodenum appeared healthy; transected 2 cm proximal from the perforation on healthy bowel (at the junction of the descending and sigmoid colon) and transected distally on the distal sigmoid colon; identified the left ureter
and divided the mesentery with the Voyant LigaSure; freed up the descending colon from the lateral attachments up to the proximal descending; irrigated the abdomen with 5 L of warm saline; tagged the Sue's pouch with a 3-0 Prolene; placed a 19
[place] drain from the RLQ into the pelvis and along the Brenna staple line; freed up the descending colon from omental attachments and lateral attachments up to the splenic flexure; placed Seprafilm and closed the fascia with 0 PDS; skin closed
with intermittent enrique and Telfa morenita; matured the colostomy in the LUQ in a brooked fashion; as a precaution due to her respiratory history, anesthesia left her intubated; only required a small dose of Jacob gtt during the surgery;
--- NOTE | 2024-06-07 19:51 | OR.RPT ---
Operative Report
Operative Report
DATE OF OPERATION: 06/07/2024
SURGEON: Jesse Moreno MD
PREOPERATIVE DIAGNOSIS: Pneumoperitoneum, possible colonic perforation
POSTOPERATIVE DIAGNOSIS: Perforated stercoral colitis
OPERATION: Exploratory laparotomy, lysis of adhesions, sigmoidectomy, creation of end-colostomy
ASSISTANTS:
1. CURTIS Bowman
ANESTHESIA: General
ESTIMATED BLOOD LOSS: 75 mL
UOP: 400 mL
IVF: 3.7 L
FINDINGS:
1. Encountered diffuse feculent peritonitis with large perforation in the mid-sigmoid colon associated with a 5 x 3 cm patch of necrotic bowel wall, most likely due to stercoral colitis
2. Diffuse inflammatory rind scattered around small bowel; lysed adhesions meticulously between omentum, small bowel and sigmoid colon; irrigated with 4 L of warm saline to clear out the stool
3. Performed sigmoidectomy with transection points at the descending�sigmoid junction and distal sigmoid; washed abdomen with an additional 5 L of warm saline and placed 3-0 Prolene marking stitch at the staple line of the Brenna's pouch
4. Created a descending end colostomy at the left upper quadrant marking site
SPECIMENS:
1. Sigmoid
DRAINS: 19 Andorran Juan in the pelvis with tip at the Brenna pouch staple line (exiting the abdomen in the right lower quadrant)
COMPLICATIONS: Patient remained intubated postoperatively as a precaution due to her underlying pulmonary issues
INDICATIONS: The patient is a 79-year-old female who presented 8 days after a right hip replacement after experiencing worsening abdominal pain, constipation and vomiting for 4 days. Her WBC was 9.3 and a CTAP was done showing moderate
pneumoperitoneum associated with extraluminal stool adjacent to the mid sigmoid colon, concerning for colon perforation, possibly related to diverticulitis. Therefore, surgery was recommended. The operation was discussed with the patient (and
patient's daughter, Susanna) in detail, including risks, benefits and alternatives. My plan is to explore the abdomen, identify the site of perforation and remove the segment of bowel, likely the sigmoid colon. I will then assess if a primary
anastomosis is reasonable or if an ostomy would be safer. I anticipate needing to create an ostomy to reduce the risk of post-operative complications. Risks described included, but are not limited to, bleeding, infection, anastomotic leak or
stenosis (if anastomosis created), rectal stump dehiscence, ureteral injury, bowel or solid organ injury, risks associated with a stoma if created (ie- skin irritation, ischemia requiring revision, retraction, prolapse and parastomal hernia) and
anesthetic risks (including, but not limited to, AR, CVA, respiratory failure, prolonged intubation, PE/DVT). The patient understood and agreed to proceed.
PROCEDURE IN DETAIL: Pre-operatively, the patient was marked by our enterostomal nurses. The patient was taken to the operating room and placed on the operating table in supine position. Sequential compression devices were placed bilaterally.
General anesthesia was then induced and the patient was intubated without complication. The patient was placed in lithotomy position with both arms secured to the armboards in extended position. Ramon catheter was placed with sterile technique.
The abdomen was prepped and draped in a sterile fashion. A time-out was then performed verifying the correct patient, procedure, operative site, positioning, and special equipment. Anesthesia attempted to place a nasogastric tube but felt
resistance. Therefore, they placed an orogastric tube. Patient recently received IV Zosyn. A marking pen was used to amber out the midline.
Using a 15 blade scalpel, a midline incision was made from 2 cm above the umbilicus and extended caudally to 4 cm above the pubic symphysis. This was taken down to the level of the fascia with Bovie electrocautery and hemostasis was assured. The
linea alba was divided carefully with Bovie electrocautery. Then 2 Kellys were used to grasp and elevate the peritoneum, which was sharply divided with Metzenbaum scissors, ensuring no peritoneal organs were in the vicinity. Upon entry, I
encountered murky, cloudy ascites, which was suctioned. I extended the fascial incision to the length of the skin incision, taking care to avoid injury to the bladder. The abdomen was explored. There was diffuse rind and adhesions from the omentum
to the small bowel, which were meticulously freed with blunt dissection. Upon freeing the omentum from the small bowel, stool was encountered primarily in the left hemiabdomen, mostly in the left lower quadrant which was removed. The transverse
colon was redundant and extended to the level of the umbilicus. This was retracted cephalad. I meticulously freed the small bowel from all of its interloop adhesions and from inflammatory adhesions to the sigmoid colon bluntly. I identified a
perforation in the mid sigmoid colon along the mesenteric border, 2 to 3 cm in diameter. This was associated with a patch of necrotic bowel wall, about 5 x 3 cm in size. Within the perforation and in the left lower quadrant, there was hard stool,
which was removed. I gently and meticulously freed the small bowel from the pelvis and right lower quadrant bluntly. I identified the cecum, which was covered in fibrinous rind but was otherwise healthy and normal in diameter. I traced the colon
distally. The ascending colon and transverse colon appeared healthy and were normal in diameter without hard palpable stool. The descending colon also appeared healthy and normal in diameter. I freed some adhesions from the terminal ileum to the
pelvic brim sharply. Once the small bowel was cleared from the pelvis, I evaluated the pelvic structures. The uterus and bilateral ovaries appeared normal. The rectum and rectosigmoid appeared healthy and had some palpable stool, but not hard
stool. Due to the dilated bowel and extensive contamination, I extended the incision cephalad and caudad 2 cm each. The Bookwalter was set up with 4 points of retractions. The patient was placed in Trendelenburg position with the left side tilted
up. The abdomen was irrigated with 4 L of warm saline in order to liquefy and clear away the stool. With the sigmoid colon adequately exposed, I began by mobilizing it in a lateral to medial fashion. There were fairly thick adhesions to the left
pelvic sidewall. With a combination of sharp and blunt meticulous dissection, these were taken down. I mobilized the mesentery of the sigmoid colon medially until I identified the left ureter (I witnessed vermiculation), left gonadal and left
iliac. I continued this mobilization up to the proximal descending colon, taking down the lateral attachments and meticulously freeing the mesentery from the retroperitoneum.
I discussed with anesthesia and we decided to attempt switching the OGT to an NGT. Anesthesia passed the NGT down and the tip was palpated within the stomach. The anterior wall of the stomach and first portion of the duodenum appeared healthy.
The small bowel was evaluated throughout its length and no injury or evidence of ischemia was noted. There was a significant amount of fibrinous rind scattered throughout the small bowel. I proceeded with sigmoidectomy. I created a hole in the
mesentery 2 cm proximal to the perforation, at the level of the descending�sigmoid junction. A green load of the contour stapler was used to staple and divide the colon at this point. I selected a point at the distal sigmoid colon, which was
elevated and freely mobile from the retroperitoneum. I created a hole at the mesenteric border and stapled and divided with the green load of the contour stapler. The perforation did extend into the mesentery. I divided the sigmoid mesentery to
include the contaminated portion and the specimen, making sure to keep the left ureter safe from my dissection. The specimen was passed off for pathology. Hemostasis was checked and assured. At this point, I considered primary anastomosis versus
end colostomy. As the patient was on 50 mcg/minute of alec and she had feculent contamination throughout the abdomen, I elected to proceed with end colostomy.
Retracting the descending colon medially, I took down the lateral attachments and meticulously freed up the mesentery from the retroperitoneum up to the proximal descending colon. I washed out the abdomen with an additional 5 L of warm saline until
the effluent was clear. I tagged the staple line of the Brenna pouch with a 3-0 Prolene toward the right aspect of the staple line. The staple line itself was intact and hemostatic. I palpated distally and there was not significant stool burden
within the rectosigmoid and rectum. I assessed my length of the descending colon. I freed additional lateral attachments from the proximal descending colon up to the level of the splenic flexure. Additionally, I divided the omental attachments
along the medial descending colon. At this point, my reach to the left upper quadrant marking site was plenty adequate without taking down the splenic flexure completely. I took down the Bookwalter retractor.
Using an Allis, I elevated the skin and created a circular incision with electrocautery. I coned out a small amount of subcutaneous tissue. Using Army-Katherine's and electrocautery, I took this down through the anterior and posterior layers of the
fascia, making a cruciate incision in each and splitting the rectus muscle with a Helena clamp. I ensured the colostomy tunnel was large enough by passing the tips of 3 fingers through easily. I brought the colon through the colostomy tunnel,
ensuring no twist to the mesentery. I directed the mesentery inferiorly. Next, I placed a 19Fr Juan drain in the pelvis with the tip adjacent to the Brenna pouch staple line, looped down next to the anterior reflection and brought it out
through the right lower abdominal wall. I secured it with a 2-0 nylon drain stitch and connected it to bulb suction. I once more examined the operative field, including the rectal stump, mesentery, and left retroperitoneum and hemostasis was
assured.
Seprafilm was placed just below the midline incision. The midline fascia was closed with a running 0 PDS, starting at the corners and ending in the middle. The skin was closed with widely-gapped enrique and Telfa morenita and, ultimately, an Aquacel
dressing was placed. The left-sided colostomy was matured in a Brooked fashion with 3-0 Vicryl stitches, and a stoma appliance was placed. Dry dressings were placed at the drain site.
At this point, the procedure was complete. Anesthesia elected to keep the patient intubated as a precaution due to her underlying pulmonary comorbidities. All needle, sponge and instrument counts were reported as correct. The patient tolerated the
procedure well and was transferred to the ICU in stable condition with the nasogastric tube in place.
Of note, Jaison Gonzales MD, staffing assistant, was necessary during this procedure for traction, countertraction, and exploratory purposes. I was present for the entire duration of the case.
DICTATED BY: Jesse Moreno MD
[2024-06-07] MEDS: LR 1000 IV (20:05)
[2024-06-07] MEDS: SUBLIMAZE 100 IV (20:08)
[2024-06-07] MEDS: PEPCID 20 MG IV (20:47)
[2024-06-07] MEDS: NSS (PRESERVATIVE FREE) 8 ML IV (20:47)
--- NOTE | 2024-06-07 21:09 | PTCARENOTE ---
Received pt from OR. Pt is nonverbal, lethargic, pupils b/l 3, b/l restraints. NSR on the monitor. Received pt intubated ETT #7 22 @ lip repositioned to the right side. AC settings 16/450/5/50%, O2 sat 99%, lungs clear, bloody sputum. Abd
round/distended. LUQ colostomy in place. Left nare NG @ 55 cm to continuous suction, irrigate Q4. Ramon in place. Right hip aquacel intact shadowing circled from previous hip surgery. Right LQ PRINCE drain, midline incision c/d/i. SCS and TEDs in place.
Fent and levo gtt. LR @ 125 ml/hr. Chest xray provided. CHG bath provided. Family in to see the pt. Safe environment maintained.
[2024-06-07 21:11] LABS: B.E. -9.2 mmol/L; HCO3 18.4 mmol/L (21-28); Ionized Calcium 1.02 mMOL/L (1.15-1.33); O2 Saturation % 99.7 % (94-98); PCO2 45 mmHg (32-35); PO2 168 mmHg (83-108); Potassium 4.9 mMOL/L (3.5-5.1); Sodium 124 mMOL/L (136-145); pH 7.22 (7.35-7.45)
--- NOTE | 2024-06-07 21:55 | PTCARENOTE ---
Chest xray and ABG results back. ICU ANIMAL THERAPIST Robi placed ordered for RT to advance ETT 2 cm to 24 cm. Vent settings adjusted AC 18/450/5/40%, O2 sat 97%.
--- NOTE | 2024-06-07 22:50 | PTCARENOTE ---
Addendum entered by Marlena Galeana RN 06/08/24 00:25:
Pts eyes fluttered and opened while being turned.
Original Note:
ICU LANDSCAPE DESIGNER Robi notified, pt unarousable. Fent gtt on hold.
[2024-06-07] MEDS: LR 500 IV (23:16)
[2024-06-07] MEDS: CALCIUM CHLORIDE 10% SYRINGE 60 MG IV (23:36)
[2024-06-07 23:43] LABS: Hematocrit 41.9 % (37.0-47.0); Hemoglobin 14.2 g/dL (12.0-16.0)
[2024-06-07 23:57] LABS: Blood Urea Nitrogen 53 mg/dl (7-17); Carbon Dioxide 15 mmol/L (22-30); Chloride 100 mmol/L (98-107); Estimated Creatinine Clearance 29 ml/min; Glucose 138 mg/dl (70-99); Magnesium 2.6 mg/dl (1.6-2.3); Potassium 5.1 mmol/L (3.5-5.1); Sodium 130 mmol/L (135-145); eGFR 32.81
[2024-06-08] VITALS (41 sets, daily range): BP systolic 87–127; BP diastolic 46–89; BMI 24.1
[2024-06-08 00:38] LABS: Venous Blood Gas B.E. -11.8 mmol/L (-4 to +4); Venous Blood Gas HCO3 16.8 mmol/L (22-27); Venous Blood Gas O2 Sat % 99.3 %; Venous Blood Gas pCO2 47 mmHg (35-48); Venous Blood Gas pO2 126 mmHg (30-50)
[2024-06-08 00:39] LABS: Venous Blood Gas O2 Therapy 40%
[2024-06-08 00:40] LABS: Venous Blood Gas pH 7.16 (7.32-7.43)
[2024-06-08] MEDS: SUBLIMAZE 50 MCG IV ×2 (01:07→04:45)
[2024-06-08] MEDS: SODIUM BICARBONATE 1150 MEQ IV ×2 (01:55→10:42)
[2024-06-08] MEDS: ZOSYN 50 IV ×4 (02:27→19:42)
--- NOTE | 2024-06-08 02:44 | DOWNTIME ---
There was a [employer] Client Heating Equipment Repairer Downtime on 06/08/2024 from 0100 to 06/08/2023 at 0235 . Downtime documentation of patient's care, including medication administrations, has been reconciled in the electronic record per guidelines. Refer to the
patient's paper chart under the miscellaneous tab to see printed paper medication records and downtime forms.
--- NOTE | 2024-06-08 02:44 | PTCARENOTE ---
Fent bolus given @ 0107 (see MAR) for light sedation, pt opening her eyes, nodding her head yes and no, increased RR.
[2024-06-08] MEDS: LR IV (04:08)
[2024-06-08 04:28] LABS: Venous Blood Gas B.E. -7.4 mmol/L (-4 to +4); Venous Blood Gas HCO3 17.3 mmol/L (22-27); Venous Blood Gas pCO2 32 mmHg (35-48); Venous Blood Gas pH 7.34 (7.32-7.43); Venous Blood Gas pO2 147 mmHg (30-50)
[2024-06-08 04:32] LABS: Venous Blood Gas O2 Therapy 40%
[2024-06-08 04:33] LABS: Hemoglobin 13.4 g/dL (12.0-16.0); Mean Corp Hgb Conc. 35.3 g/dL (33.0-37.0); Mean Corpuscular Hgb 31.4 pg (27.0-31.0); Mean Platelet Volume 10.4 fL (7.4-10.4); Platelet Count 348 10^3/uL (130-400); Red Blood Cell Count 4.27 10^6/uL (4.20-5.40); Red Cell Dist. Width 12.8 % (11.5-14.5); White Blood Cell Count 15.1 10^3/uL (4.8-10.8)
[2024-06-08 05:50] LABS: ALT (SGPT) 36 U/L (0-35); AST (SGOT) 64 U/L (14-36); Albumin 1.8 g/dl (3.5-5.0); Alkaline Phosphatase 76 U/L (38-126); Blood Urea Nitrogen 58 mg/dl (7-17); Calcium 7.5 mg/dl (8.4-10.2); Carbon Dioxide 17 mmol/L (22-30); Chloride 100 mmol/L (98-107); Estimated Creatinine Clearance 23 ml/min; Glucose 105 mg/dl (70-99); Magnesium 2.5 mg/dl (1.6-2.3); Potassium 5.1 mmol/L (3.5-5.1); Sodium 129 mmol/L (135-145); Total Bilirubin 1.9 mg/dl (0.2-1.3); Total Protein 3.8 g/dl (6.3-8.2)
[2024-06-08] MEDS: LOPRESSOR 5 MG IV (06:13)
--- NOTE | 2024-06-08 06:16 | PTCARENOTE ---
Pt HR in the 180s, EKG provided reading Afib w/ RVR. 5 mg IV Lopressor given (see MAR).
--- NOTE | 2024-06-08 07:17 | CON.INTV ---
Consultation
Consultation Request
Date/Time Consultation Requested: 06/08/24
Date/Time Consultation Performed: 06/08/24
Performing Provider: Leann
Reason for Consultation: ICU
Medical History
-
History of Present Illness:
Patient is a 79 year old F with past history of HTN, recent R hip BARRINGTON 05/30/24, mild cognitive impairment, ILD/bronchiectasis, h/o spontaneous PTX presenting to ER for abdominal pain, nausea, vomiting. Patient symptoms started approximately 4
days ago. In the ER CT scan of the abdomen pelvis showed pneumoperitoneum suspicious for bowel perforation, likely sigmoid. Underwent emergent OR intervention 06/07/24 s/p exploratory laparotomy, lysis of his adhesions, sigmoidectomy, creation of
end colostomy for perforated stercoral colitis. She is perioperatively intubated and admitted to ICU overnight for further management. Required levophed overnight, now off this AM.
Past Medical History
Past Medical History: Other
Social History
Tobacco: Non-smoker
Alcohol: None
Drug: None
Family History
Family History: Reviewed & Not Pertinent
Allergies / Home Medications
Allergies
Allergy/AdvReac Type Severity Reaction Status Date / Time
iodine Allergy Hives Verified 06/07/24 09:13
Home Medications
�Medication �Instructions �Recorded �Confirmed �Last Taken �Type
cholecalciferol (vitamin D3) 25 25 mcg PO DAILY 05/11/24 06/07/24 06/06/24 History
mcg (1,000 unit) tablet (Vitamin
D3)
nugxzupa-gtkb-molc 8 mg-folic 400 1 tab PO DAILY 05/11/24 06/07/24 06/06/24 History
mcg-K 50 mcg-lutein 300 mcg tablet
(Centrum Silver Women)
celecoxib 200 mg capsule 200 mg PO DAILY anti-inflammatory 05/12/24 06/07/24 06/06/24 Rx
#14 caps
famotidine 20 mg tablet 20 mg PO HS GI prophylaxis #30 tabs 05/12/24 06/07/24 06/06/24 Rx
gabapentin 300 mg capsule 300 mg PO HS sleep/pain #10 caps 05/12/24 06/07/24 06/06/24 Rx
amlodipine 5 mg tablet 5 mg PO HS #1 tab 05/31/24 06/07/24 06/06/24 Rx
aspirin 325 mg tablet 325 mg PO DAILY #30 tabs 05/31/24 06/07/24 06/06/24 Rx
docusate sodium 100 mg capsule 100 mg PO BID #30 caps 05/31/24 06/07/24 06/06/24 Rx
gabapentin 100 mg tablet 100 mg PO BID@0800,1600 05/31/24 06/07/24 06/06/24 Rx
neuropathic pain #1 tab
lidocaine 4 % topical patch 2 patch topical DAILY #30 ea 05/31/24 06/07/24 06/06/24 Rx
acetaminophen 325 mg tablet 650 mg PO Q4HPRN PRN mild pain 06/07/24 06/07/24 06/07/24 02:45 History
ondansetron 4 mg disintegrating 4 mg PO Q6HPRN PRN n/v 06/07/24 06/07/24 Unknown History
tablet
oxycodone 5 mg tablet 5 mg PO Q6HPRN PRN 1 tab moderate 06/07/24 06/07/24 06/06/24 History
pain, 2 tabs severe pain 2.5mg
sennosides 8.6 mg tablet (Judith-laurence) 17.2 mg PO BID 06/07/24 06/07/24 06/06/24 History
Review of Systems
-
Unable to Obtain full review of systems at this time due to: Patient Intubation
Vitals / Labs / Diagnostic Testing
Vital Signs
Temp Pulse Resp BP Pulse Ox
99.0 F 87 24 93/60 97
06/08/24 03:31 06/08/24 07:00 06/08/24 07:00 06/08/24 07:00 06/08/24 07:00
Lab Data
06/08/24 03:51
06/08/24 04:58
Laboratory Results
06/07/24 06/07/24
14:37 20:55
PT 14.6
INR 1.11
APTT 27.5
pH 7.22 L
pCO2 45 H
pO2 168 H
HCO3 18.4 L
O2 Delivery Level Not Reportable
Microbiology
06/07/24 09:19 Nasal Swab Influenza Types A & B (EVI) - Final
Negative for Influenza A & B, NAAT
Negative results must be combined with clinical observations
and patient history.
Nucleic Acid Amplification test (NAAT)performed on the
Bioscan platform.
Diagnostic Testing:
Physical Exam
-
HEENT: Normocephalic, Anicteric and Moist Mucous Membranes
Cardiovascular: S1/S2 and Regular Rhythm
Respiratory: Clear and Non-Labored Respirations
GI: Soft, Non Distended, Non Tender and Other (Ostomy present)
Neurology: Awake, No Motor Deficits and Other (intubated/sedated)
Skin: Warm, Dry and Good Color
General: Comfortable and Other (NAD)
Assessment
-
Patient is a 79 year old F with past history of HTN, recent R hip BARR[place] 05/30/24, mild cognitive impairment, ILD/bronchiectasis, h/o spontaneous PTX presenting to ER for abdominal pain, nausea, vomiting. Patient symptoms started approximately 4
days ago. In the ER CT scan of the abdomen pelvis showed pneumoperitoneum suspicious for bowel perforation, likely sigmoid. Underwent emergent OR intervention 06/07/24 s/p exploratory laparotomy, lysis of his adhesions, sigmoidectomy, creation of
end colostomy for perforated stercoral colitis. She is perioperatively intubated and admitted to ICU overnight for further management. Required levophed overnight, now off this AM.
Perforated stercoral colitis s/p Exploratory laparotomy, lysis of adhesions, sigmoidectomy, creation of end-colostomy 06/07/[address]
Abd pain, N/V
Periop mech vent
Leukocytosis with bandemia 51%
Metabolic acidosis, pH 7.16
Hyponatremia
LONG, creatinine 2.0
Transaminitis
Conditions present [employer]CRA[employer] MAINTE[employer]CE [employer]PER[employer]
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
OA s/p R hip BARRINGTON on 05/30/24
Mild cognitive impairment
ILD/bronchiectasis
follows Dr Cunningham
PFT reveals mild obstruction. spirometry is stable mild crackles on exam noted
PET done 07/10/21 reveals 9 mm solid pulmonary nodule in lingula demonstrating moderate FDG uptake, max SUV 2.6.
h/o spontaneous PTX
Vitamin D deficiency
Mixed hyperlipidemia
History of tobacco abuse, quit 26 years ago, 32 pack year history
Plan
No current signs of metabolic encephalopathy or MS changes/following commands
Has pain at abdomen
Pain/sedation: PRN, wean sedation
RASS goals: 0
Hemodynamically stable, not requiring pressors.
Requiring pressors: levophed weaned to off
Cardiac history reviewed--tachycardia, while on pressors
Weaned off pressors, monitor for now
No prior ECHO for review, need new study
Cards eval pending
Monitor on telemetry
Oxygen needs: intubated for procedure, plan for SBT and extubation
Vent setting reviewed: AC 450/20/40/5+
Prior history of lung disease: ILD history, mild obstruction on last PFT
Supplemental O2 as indicated to maintain sats > 89%
CXR/CT reviewed indicating no acute process
Extubate if passes, not known to be on home O2
NPO, likely to stay with NGT in place
Diet advancement per CRS
Aspiration precautions, HOB > 30 degrees
Speech therapy eval can be considered if at elevated risk
GI prophylaxis if indicated for mechanical ventilation >48 hours, prior history of GERD, stress ulcer formation in the critically ill
LONG present
Creat at baseline, no history of renal disease
Void trials
Follow urine output, critical I/Os
Replete electrolytes as needed
Acid/base status: met acidosis, bicarb IVFs on board
Repeat CMP, change to NSS if improves
Fever and increased WBC on presentation, perforated bowel noted
Started on empiric antibiotics
Cultures sent/pending
Follow fever trend, WBC count
Lactate elevated on admission, continue to trend until <2
CBC stable, no signs of bleeding or coagulopathy.
DVT prophylaxis as assessed based on risk, including mechanical SCDs
Can transfuse if indicated for Hb <7, plt < 10
No prior h/o diabetes or thyroid disease
Monitor accuchecks PRN/SS coverage if needed
We will follow
Diagnostic Data
Chest X-Ray: 06/07/24- Endotracheal tube is present with tip projecting over the T3-4 disc space, approximately 6 cm superior to the rafiq. Nasogastric tube is present, distal sidehole projecting over the stomach in the superomedial left upper
quadrant, inferior tip of the tube extending inferior to the [id number]-yn-[id number]. Lungs appear hypoinflated compared to previous radiograph. There is an 8 mm calcified granuloma in the lateral aspect of the left mid lung, stable.
06/09/23- No acute pulmonary process identified. Unchanged approximately 1 cm lateral left midlung nodule. Other smaller nodules seen on prior CT are indistinct at radiography. There is unchanged chronic partial atelectasis/scarring of the right
middle lobe and lingula with associated bronchiectatic changes.
CT Scan:CHEST 05/26/22- Redemonstration of several peripheral isolated and grouped nodular opacities throughout the upper and lower lobes bilaterally, overall decreased in size from prior. For example, the previously seen 1.8 cm index lesion in the
right lower lobe (series 201, image 31) now measures up to 1.2 cm (previously 1.8 cm) with decreased solid component. Similar changes to the majority of the remaining pulmonary nodules. There is one stable 1.4 x 0.9 cm left upper lobe nodule (image
31). No new or enlarging pulmonary nodules, areas of airspace disease, pleural effusions, pericardial effusions or enlarged lymph nodes in the thorax. No pneumothorax. Small hiatal hernia.
Echo: n/a
PFT's:
Reports and relevant images were personally reviewed.
Critical Care time 75 mins -- The patient is admitted for acute critical illness for the treatment of vital organ failure and/or prevention of further life-threatening conditions. Total care includes time spent in review of history, physical exam,
medications, hemodynamic/ventilator parameters, laboratory data, imaging and discussion with house staff, pharmacy, respiratory therapy, elderly caregiver, and nursing.
--- NOTE | 2024-06-08 07:35 | W.PN.HOSP.TC ---
Today's Communication/Plan
-
Patient is currently postop in the ICU and is intubated. We will follow the recommendations of surgery following her and colostomy.
Assessment / Plan
Assessment / Plan
HPI: Patient is a 71-year-old female who presented to [facility] emergency department due to abdominal pain and nausea. She was postop day 8 from a right hip replacement. Patient stated that her symptoms started about 5 days prior to her
presentation. Her symptoms started at night with abdominal pain which progressed significantly over the past few days prior to her presentation. She started having nausea and vomited 4 days prior to presentation and every day since then. Her last
bowel movement was 6 days prior to her presentation and she only had 2 bowel movements since surgery. She had been taking oxycodone every 6 hours and alternating with Tylenol since her surgery. She had also been on a steroid Dosepak which ended
the night that her abdominal pain began. At the time of her presentation she felt distended and nauseous and the apex of her pain was the night prior to her presentation. The pain was so extremely painful that it woke her up from sleep. She has
never had abdominal surgery before. Her last colonoscopy was 2 years ago and there were no pertinent findings as per patient. In the emergency department her vitals were normal. Her white blood cells were within normal range at 9.3 in the
emergency department. The patient was hyponatremic with a sodium level of 123, hypochloremic at 93, low bicarb at 18, and elevated BUN at 55, and an elevated creatinine at 1.5. The patient's lactic acid was found to be 4.3. The patient was nasal
swab for influenza and was negative. Blood culture and urine culture was sent and the patient was also screened for MRSA. An abdominal CT was ordered showing findings suggesting perforated bowel probable at sigmoid colon with associated
retroperitoneal and intraperitoneal free air, air-fluid level suggesting abscess formation and extraluminal stool. General surgery and colorectal surgery was consulted. The patient was admitted to [facility] for small bowel perforation.
Assessment/Plan:
-Acute sigmoid bowel perforation with acute surgical abdomen:
Patient's lactic acid was 4.3 in the emergency department
The patient was hyponatremic with a sodium of 123, hypochloremic at 93, low bicarb at 18, elevated BUN at 55, and an elevated creatinine at 1.5 in the emergency department
An abdominal CT showed findings suggesting perforated bowel probable at sigmoid colon with associated retroperitoneal and intraperitoneal free air, air-fluid level suggesting abscess formation and extraluminal stool.
Surgery and colorectal surgery consulted
IV fluid support given
Patient is currently postop from exploratory laparotomy, sigmoidectomy, and creation of end colostomy
Admitted to ICU
Morphine/Zofran as needed
Patient remains intubated
Levophed is being weaned down
-Hyponatremia:
Patient was found to be hyponatremic with a sodium of 123 in the emergency department.
Sodium is 129 on 06/08/2024
Continue IV fluid support
-Acute kidney injury secondary to bowel perforation/infection/acute process:
Patient's baseline creatinine is 0.8 taken on 05/12/2024
Lactic acid was 4.3 in the emergency department
On presentation to the emergency department on 06/07/2024 the patient had a creatinine of 1.5 indicating acute kidney injury.
On 06/08/2024 creatinine is 2.0 continue to trend creatinine
-Essential hypertension:
Holding home hypertension meds
-Mild cognitive impairment:
Monitoring
-Total right hip replacement on 05/30/2024
-Interstitial lung disease with bronchiectasis
-Past medical history of spontaneous pneumothorax
FULL CODE STATUS
DVT prophylaxis: Sequential compression devices
Imaging:
-Abdominal CT conducted on 06/07/2024:
New findings suggesting perforated bowel probable sigmoid colon with associated retroperitoneal and intraperitoneal free air, air-fluid levels suggesting abscess formation and extraluminal stool.
Mild small bowel dilatation probably ileus due to reactive change. New
Tiny bilateral pleural effusions. New
Too small to characterize hypodense left renal lesion likely a benign cyst.
Mild lingular bronchiectasis. Stable
Critical value: Free air.
-Chest x-ray conducted on 06/07/2024:
Endotracheal tube is present with its tip 6 cm above the rafiq.
Anticipated Discharge: 24 - 48 hours
Subjective/Interval History
-
Met with patient at the bedside. She remains intubated. The patient appears calm and comfortable in bed.
Objective Data
-
Labs:
Laboratory Results
06/07/24 06/07/24 06/08/24
20:55 23:30 03:51
WBC 15.1 H
Hgb 14.2 13.4
Hct 41.9 38.0
Plt Count 348
HCO3 18.4 L
Sodium 130 L Cancelled
Potassium 5.1 Cancelled
Chloride 100 Cancelled
Carbon Dioxide 15 L Cancelled
BUN 53 H Cancelled
Creatinine 1.6 H Cancelled
Glucose 138 H Cancelled
Calcium 7.0 L D Cancelled
Total Bilirubin Cancelled
AST Cancelled
ALT Cancelled
Alkaline Phosphatase Cancelled
06/08/24
04:58
WBC
Hgb
Hct
Plt Count
HCO3
Sodium 129 L
Potassium 5.1
Chloride 100
Carbon Dioxide 17 L
BUN 58 H
Creatinine 2.0 H
Glucose 105 H
Calcium 7.5 L
Total Bilirubin 1.9 H
AST 64 H
ALT 36 H
Alkaline Phosphatase 76
Labs
06/08/24 03:51
06/08/24 04:58
Vital Signs:
Vital Signs
Temp Pulse Resp BP Pulse Ox
98.4 F 87 24 93/60 97
06/08/24 07:28 06/08/24 07:00 06/08/24 07:00 06/08/24 07:00 06/08/24 07:00
I&O
06/07/24 06/08/24 06/09/24
06:59 06:59 06:59
Intake Total 4290.0 / 4415.0 125 / 125
Output Total 626 / 626
Balance 3664.0 / 3789.0 125 / 125
Review of Systems
-
Unable to obtain full review of systems at this time due to: Patient Intubation
Physical Exam
-
General: Well Developed, Well Nourished, Comfortable and Intubated
HEENT: Normocephalic and Atraumatic
Respiratory: Clear to Auscultation
Cardiac: Regular Rhythm and S1/S2; Negative Murmur or JVD
Breast: Deferred by me
GI: Soft, Nontender and Ostomy (Left-sided)
Rectal: Deferred by Provider
Genito-urinary: Deferred by me
Musculoskeletal: No Clubbing, No Cyanosis and No Edema
Skin: Warm and Dry
Neuro: Sedated
Psych: Calm
--- NOTE | 2024-06-08 07:47 | W.PN.UPDATE ---
Update Note
Progress Note Update
Ms. Ortiz is a 79 year old female 9 days s/p right B[place] with Dr. Lyon on 05/30/24. Presented to ED yesterday with complaints of constipation, abdominal discomfort, and n/v for several days despite oral medications.
CT scan demonstrated free air in the peritoneum.
Taken to OR for exploratory laparotomy with sigmoid colon resection and colostomy.
Patient seen this morning, but currently intubated.
Primaseal dressing in place with mild drainage about central portion of dressing.
Leg lengths equal. Calf is soft.
From ortho standpoint, she should adhere to posterior hip precautions and may WBAT with walker when medically stable.
Will continue to follow.
--- NOTE | 2024-06-08 07:57 | W.PN.ANS.POP ---
Anesthesia Post Operative
- Anesthesia Post Op Note
Vital Signs Stable-See Nursing Note: Yes
Airway Patent: Yes
Adequate Pain Control: Yes
Change in Mental Status: No
Current Postoperative Nausea & Vomiting: No
Anesthesia Complications: No
General Anesthetic Recall: No
Unplanned Admission: No
Post Op Hydration Adequate: Yes
--- NOTE | 2024-06-08 08:00 | PTCARENOTE ---
Received patient from shift supervisor rn. patient is somnolent, but arousable. able to follow commands and nod appropriately. patient is intubated, sedation is off, has been off for lethargy since shift supervisor rn. Patient is in a sinus rhythm, pressures
soft, had history of afib overnight. She is intubated #7 ETT, AC 20/450/5/40% with oxygen saturation at 97%. Patient has NGT to continous suction in left nare, brownish drainage noted. Dr. Sinclair in to see patient at time of assessment, would like
NGT to stay in place if patient extubated. Patient has indwelling urinary catheter, minimal justyna urine noted. creatinine increased and consult made to nephrology. Patient has midline incision with Aquacel some drainage noted. has PRINCE in RLQ,
has new colostomy with red budded stoma site WNL. Bicarb gtt infusing into left arm 18, SCDS for DVT prophylaxis. will review orders, possible plan to wean.
[2024-06-08 08:03] LABS: Absolute Neutrophils -Man Diff 11.7 10^3/uL (1.4-6.5); Band Neutrophils 51 % (0-3); Lymphocytes 3 % (20-51); Metamyelocytes 10 % (-); Monocytes 9 % (2-9); Normal RBC Morphology No; Platelets Checked Yes; Segmented Neutrophils 27 % (42-75)
[2024-06-08 08:04] LABS: Acanthocytes 2+; Hypochromasia Slight; Ovalocytes 1+; Polychromasia Slight; Total Cells Counted 100
--- NOTE | 2024-06-08 08:15 | W.PN.UPDATE ---
Update Note
Progress Note Update
I saw and evaluated the patient. I reviewed the resident�s note and agree with findings and plan as documented in the resident�s note.
Intubated, sedated.
Gen: NAD, Awake but not alert, NCAT
Eyes: no scleral icterus.
Neck: supple.
CV: tachy, reg rhythm, +S1/S2, no m/r/g.
Resp: CTAB anteriorly, no rales, wheezes, or rhonchi.
Abd: Abdomen is moderately distended with hypoactive bowel sounds. There is exquisite, diffuse tenderness to palpation with either significant guarding or surgical abdomen.
Skin: No rashes.
Neuro: bites on ET tube and moves facial muscles spontaneously
Psych: sedated, overall calm
CT A/P: New findings suggesting perforated bowel probable sigmoid colon with associated retroperitoneal and intraperitoneal free air, air-fluid levels suggesting abscess formation and extraluminal stool. Mild small bowel dilatation probably ileus
due to reactive change. New. Tiny bilateral pleural effusions. New. Too small to characterize hypodense left renal lesion likely a benign cyst. Mild lingular bronchiectasis. Stable. This case was discussed with Dr. Dodd on 06/07/2024 at
12:50 PM. Critical value: Free air.
Acute sigmoid bowel perforation:
-s/p IVF resuscitation on admission
-s/p Exploratory laparotomy, lysis of adhesions, sigmoidectomy, creation of end-colostomy on 06/07/24
-cont Levophed for septic shock (likely POA) due to bowel perforation, MAP>65
-cont Zosyn
-follow Cxs
Afib with RVR:
-cont Cardizem gtt
-AC once OK with surgery
-currently in sinus tachycardia on the monitor
-c/s cards
LONG:
-with non-AG met acidosis
-cont bicarb infusion
-c/s renal
Other problems:
Hyponatremia
Essential HTN: Holding Norvasc with septic shock
R hip BARRINGTON on 05/30/24: ortho following
Mild cognitive impairment
Interstitial lung disease with bronchiectasis
h/o spontaneous PTX
Pt's daughter updated at bedside.
FULL
SCDs ([employer] message sent to [facility] to ask when they are ok with pharmacological DVT prophylaxis)
Total critical care time spent = 32 min
--- NOTE | 2024-06-08 09:09 | PTOTSP ---
Received order for PT and reviewed chart. Pt s/p colostomy and remains intubated. Will hold PT at this time. Will need new orders for PT and OT when extubated and stable to participate in therapy activities.
--- NOTE | 2024-06-08 09:20 | WOUNDNOTE ---
FRANCISCO RN note: Patient s/p ostomy surgery for perforated colon.
See H&P for complete history.
PMH:
Ostomy location and type: LUQ Brenna's Colostomy. Stoma pink and budded, appliance intact no leakage.
Patient intubated, unable to do teaching at this time. Gave patient Colostomy folder and will follow up for appliance change and ostomy teaching. Called [facility] for supplies, nurse Anali Pastrana made aware and will bring to patient's rm.
Daron wafer # [id number]
Daron pouch # [id number]
Note to case management: VN services recommended for ostomy teaching.
Nursing care plan updated, will follow as needed.
[2024-06-08 10:15] LABS: B.E. -2.7 mmol/L; HCO3 20.4 mmol/L (21-28); O2 Saturation % 99.4 % (94-98); PCO2 30 mmHg (32-35); PO2 117 mmHg (83-108); pH 7.44 (7.35-7.45)
--- NOTE | 2024-06-08 10:15 | W.PN.CRS1 ---
Today's Communication / Plan
-
Extubate per primary team
Await bowel function
Maintain NG tube
Assessment/Plan
-
POD#1 Exploratory laparotomy, lysis of his adhesions, sigmoidectomy, creation of end colostomy
NG tube: 75 mL
HGB 13.4, WBC 15.1 (9.3)
Creatinine 2.0 from 1.6
-Extubate per primary team
-NG tube to remain in place until regains bowel function
-If extubated, okay for out of bed and clamp NG tube for 30 minutes for ambulation. Physical therapy.
-Wound RN for stoma teaching
-Fabien in place, will remove in several days
-Maintain PRINCE drain for now
-Teds and SCDs in place for DVT prophylaxis. Start on heparin sq later tonight given LONG.
-Appreciate hospitalist/corporate planner
-Continue IV antibiotics
-OR pathology pending
-Trend labs
Subjective Data
Procedure
06/07/24: Exploratory laparotomy, lysis of his adhesions, sigmoidectomy, creation of end colostomy
Subjective Data
Date of Service: June 08, 2024
Patient is intubated. She nods her head slightly when we ask her if she knows what happened.
Apparently the patient went into atrial fibrillation last night but now is back in sinus rhythm. A Cardizem drip was never started. She also required several boluses overnight.
Objective Data
-
Vital Signs
Temp Pulse Resp BP Pulse Ox
98.4 F 102 25 119/67 98
06/08/24 07:28 06/08/24 09:53 06/08/24 09:53 06/08/24 09:26 06/08/24 09:53
Intake & Output
06/07/24 06/08/24 06/09/24
06:59 06:59 06:59
Intake Total 4290.0 / 4415.0 375 / 375
Output Total 626 / 626
Balance 3664.0 / 3789.0 375 / 375
Intake:
IV fluids (Total) 4040.0 / 4165.0 375 / 375
LR bolus 500 / 500
Lr 1,000 ml @ 125 mls/hr IV . 750 / 750
Q8H LINDA Rx#:[id number]
NSS 2000 / 1999
Sterile Water For Injection 500 / 500
1000 ml 1,000 ml @ 0 mls/hr IV
.Q0M LINDA with Sodium
Bicarbonate 150 Meq Rx#:
[id number]
Sterile Water For Injection 125 / 250 375 / 375
1000 ml 1,000 ml @ 125 mls/hr
IV .Q9H12M LINDA with Sodium
Bicarbonate 150 Meq Rx#:
[id number]
fent 7.5 / 7.5
levo 157.5 / 157.5
IV piggybacks 160 / 160
Amount instilled into GI Tube ( 90 / 90
Total)
[place] Sump 90 / 90
Output:
Drain Output (Total) 135 / 135
Right Lower Abdomen Darius- 135 / 135
[place]
Gastrointestinal tube output ( 75 / 75
Total)
[place] Sump 75 / 75
Urine, Ramon 416 / 416
Lab Results
06/08/24 03:51
Physical Exam
-
General: Other (Intubated and sedated)
Abdomen: Soft, Non Distended, Non Tender and Other (Colostomy warm and pink, no flatus in bag)
Wound: Dressing in Place and Other (PRINCE drain with serosanguineous output)
--- NOTE | 2024-06-08 10:16 | W.CON.NEPH ---
Consultation
-
Date/Time Consultation Requested: June 08, 2024 at 8:30 AM
Date/Time Consultation Performed: June 08, 2024 at 10 AM
Requesting Provider: Dr. Jones Sorensen
Performing Provider: Dr. Rahul Espino
Reason for Consultation: Acute kidney injury
Medical History
-
Chief Complaint: Acute kidney
History of Present Illness:
79-year-old female with PMH of HTN, HLD, interstitial lung disease with bronchiectasis, history of pneumonia multiple times, history of spontaneous pneumothorax x 2 who presents 1 week after right hip replacement when she started to develop
abdominal pain and nausea with decreased bowel function over the past few days was found to have a bowel perforation with emergent need for next floor to her laparotomy ultimately requiring colectomy subsequent colostomy.
She is seen in the ICU where she is on mechanical ventilation. She required low-dose pressor support she is now off pressors. She is oliguric.
She developed acute kidney injury therefore renal consult with a baseline creatinine of 0.8 admitted with a creatinine 1.5 it is now up to 2.
Past Medical History
HTN, HLD, interstitial lung disease with bronchiectasis, history of pneumonia
Social History
Tobacco: Non-Smoker
Alcohol: None
Family History
No renal disease
Allergies / Home Medications
Allergy/AdvReac Type Severity Reaction Status Date / Time
iodine Allergy Hives Verified 06/07/24 09:13
�Medication �Instructions �Recorded �Confirmed �Type
cholecalciferol (vitamin D3) 25 25 mcg PO DAILY 05/11/24 06/07/24 History
mcg (1,000 unit) tablet (Vitamin
D3)
[id number]-yzec-smpa 8 mg-folic 400 1 tab PO DAILY 05/11/24 06/07/24 History
mcg-K 50 mcg-lutein 300 mcg tablet
(Centrum Silver Women)
celecoxib 200 mg capsule 200 mg PO DAILY anti-inflammatory 05/12/24 06/07/24 Rx
#14 caps
famotidine 20 mg tablet 20 mg PO HS GI prophylaxis #30 tabs 05/12/24 06/07/24 Rx
gabapentin 300 mg capsule 300 mg PO HS sleep/pain #10 caps 05/12/24 06/07/24 Rx
amlodipine 5 mg tablet 5 mg PO HS #1 tab 05/31/24 06/07/24 Rx
aspirin 325 mg tablet 325 mg PO DAILY #30 tabs 05/31/24 06/07/24 Rx
docusate sodium 100 mg capsule 100 mg PO BID #30 caps 05/31/24 06/07/24 Rx
gabapentin 100 mg tablet 100 mg PO BID@0800,1600 05/31/24 06/07/24 Rx
neuropathic pain #1 tab
lidocaine 4 % topical patch 2 patch topical DAILY #30 ea 05/31/24 06/07/24 Rx
acetaminophen 325 mg tablet 650 mg PO Q4HPRN PRN mild pain 06/07/24 06/07/24 History
ondansetron 4 mg disintegrating 4 mg PO Q6HPRN PRN n/v 06/07/24 06/07/24 History
tablet
oxycodone 5 mg tablet 5 mg PO Q6HPRN PRN 1 tab moderate 06/07/24 06/07/24 History
pain, 2 tabs severe pain
sennosides 8.6 mg tablet (Judith-laurence) 17.2 mg PO BID 06/07/24 06/07/24 History
Review of Systems
-
Unable to obtain full review of systems at this time due to: Acuity and Patient Intubation
Physical Exam
Vital Signs
Vital Signs
Temp Pulse Resp BP Pulse Ox
98.4 F 102 25 119/67 98
06/08/24 07:28 06/08/24 09:53 06/08/24 09:53 06/08/24 09:26 06/08/24 09:53
Lab Results
WBC 15.1 10^3/uL (4.8-10.8) H 06/08/24 03:51
RBC 4.27 10^6/uL (4.20-5.40) 06/08/24 03:51
Hgb 13.4 g/dL (12.0-16.0) 06/08/24 03:51
Hct 38.0 % (37.0-47.0) 06/08/24 03:51
Plt Count 348 10^3/uL (130-400) 06/08/24 03:51
eGFR 25.10 06/08/24 04:58
Physical Exam
General no acute distress
HEENT no cephalic atraumatic no scleral icterus no JVD neck supple
lungs coarse bilateral
heart regular S1-S2 positive
abdomen ostomy
extremities no edema pulses present bilateral
Neurologically intubated but responsive to verbal and tactile stimuli
Skin no lesions no abrasions no petechiae
Psych intubated
Data Reviewed
-
Radiology: Image Personally Visualized and interpreted (No pulmonary edema)
Labs: Labs Reviewed by me
Assessment/Plan
-
79-year-old female with PMH of HTN, HLD, interstitial lung disease with bronchiectasis, history of pneumonia multiple times, history of spontaneous pneumothorax x 2 who presents 8 days after right hip replacement;
Presents with� Colonic perforation s/p right hip replacement; status post colectomy with ostomy
Baseline creatinine 0.8 with admitting creatinine 1.5.
Impression.
Acute kidney injury in the setting of sepsis and hemodynamic.
Bowel perforation status post sigmoidectomy.
Hyponatremia.
Hypertension.
Status post total hip replacement May 30, 2024.
Interstitial lung disease..
Plan.
Baseline creatinine 0.8 with admitting creatinine 1.5.
Continue supportive care maintenance IV fluids currently on bicarbonate drip okay to switch over to lactated Ringer's or normal saline.
She received 4 L per record and currently oliguric but not on pressors currently hemodynamically stable..
Continue supportive care
Antibiotics
Renal dose all medications for appropriate GFR until reaches steady state
Ramon catheter.
If urine output does not increase over the next 12 to 24 hours consider high-dose loop diuretic to help facilitate urine output.
Discussed with ICU team
Total Time Spent with Patient (in minutes): 35
[2024-06-08] MEDS: OFIRMEV 100 IV ×3 (10:17→21:47)
--- NOTE | 2024-06-08 10:30 | PTCARENOTE ---
Patient extubated, applied 2L nasal cannula.
--- NOTE | 2024-06-08 11:12 | RESPNOTE ---
pt extubated at 1040 to 6l nasal cannula
daughter at bed side
--- NOTE | 2024-06-08 11:29 | CON.CAR ---
Consultation
Consultation Request
Date/Time Consultation Requested: 06/08/2024 1130
Date/Time Consultation Performed: 06/08/2024 1100
Requesting Provider: Dr. Sorensen
Performing Provider: Dr. Barone
Reason for Consultation: Atrial fibrillation
Medical History
-
History of Present Illness:
79-year-old woman with history of hypertension, hypercholesterolemia, interstitial lung disease, bronchiectasis, history of spontaneous pneumothorax who underwent right hip replacement 1 week ago and then presented to [facility] with bowel
perforation requiring emergent laparotomy with colectomy and colostomy. Patient admitted to the ICU had been on pressors and developed new onset A-fib with RVR. Patient received 1 dose of IV metoprolol and has since converted to sinus rhythm.
Patient with no prior cardiac history including no history of coronary artery disease or A-fib. Pressors have now been weaned off.
Patient is somnolent but arousable and responding to questions.
Past Medical History
Past Medical History: Other (As above)
Social History
Tobacco: Non-Smoker
Family History
Family History: Other (Negative for premature CAD)
Allergies / Home Medications
Allergy/AdvReac Type Severity Reaction Status Date / Time
iodine Allergy Hives Verified 06/07/24 09:13
�Medication �Instructions �Recorded �Confirmed �Type
cholecalciferol (vitamin D3) 25 25 mcg PO DAILY 05/11/24 06/07/24 History
mcg (1,000 unit) tablet (Vitamin
D3)
aernbsmp-norm-grop 8 mg-folic 400 1 tab PO DAILY 05/11/24 06/07/24 History
mcg-K 50 mcg-lutein 300 mcg tablet
(Centrum Silver Women)
celecoxib 200 mg capsule 200 mg PO DAILY anti-inflammatory 05/12/24 06/07/24 Rx
#14 caps
famotidine 20 mg tablet 20 mg PO HS GI prophylaxis #30 tabs 05/12/24 06/07/24 Rx
gabapentin 300 mg capsule 300 mg PO HS sleep/pain #10 caps 05/12/24 06/07/24 Rx
amlodipine 5 mg tablet 5 mg PO HS #1 tab 05/31/24 06/07/24 Rx
aspirin 325 mg tablet 325 mg PO DAILY #30 tabs 05/31/24 06/07/24 Rx
docusate sodium 100 mg capsule 100 mg PO BID #30 caps 05/31/24 06/07/24 Rx
gabapentin 100 mg tablet 100 mg PO BID@0800,1600 05/31/24 06/07/24 Rx
neuropathic pain #1 tab
lidocaine 4 % topical patch 2 patch topical DAILY #30 ea 05/31/24 06/07/24 Rx
acetaminophen 325 mg tablet 650 mg PO Q4HPRN PRN mild pain 06/07/24 06/07/24 History
ondansetron 4 mg disintegrating 4 mg PO Q6HPRN PRN n/v 06/07/24 06/07/24 History
tablet
oxycodone 5 mg tablet 5 mg PO Q6HPRN PRN 1 tab moderate 06/07/24 06/07/24 History
pain, 2 tabs severe pain
sennosides 8.6 mg tablet (Judith-laurence) 17.2 mg PO BID 06/07/24 06/07/24 History
Physical Exam
Vital Signs
Temp Pulse Resp BP Pulse Ox
99 F 111 26 90/46 98
06/08/24 11:21 06/08/24 11:00 06/08/24 11:00 06/08/24 11:00 06/08/24 11:00
Lab Results
06/08/24 03:51
Physical Exam
General: Other (Somnolent but arousable. An NG tube in place)
HEENT: Anicteric and Other (NG tube in place external urine oral exam unremarkable)
Respiratory: Other (No wheezes rales or rhonchi mildly decreased at bases which may be related to effort)
Cardiac: Regular Rhythm (No murmur rub or gallop)
GI: Non Distended and Other (Postop abdomen colostomy in place incisional dressing intact drain intact)
Skin: Warm
Neuro: Other (Somnolent but arousable)
Psych: Calm and Other (Cooperative)
Impression / Plan
-
A-fib with RVR
-New diagnosis
-CHADSVASC 4 (age greater than 75, female, hypertension)
-Occurred in the postoperative setting after emergent laparotomy and patient on pressors.
-Now back in sinus rhythm
-Off pressors.
-Start low-dose beta-norma when blood pressure will allow. Currently systolics in the 90s so would hold off with additional beta-norma until blood pressures improved.
-echo
-Patient is now off pressors which may decrease likelihood of atrial fibrillation but there is still a significant likelihood that she could develop recurrent A-fib. Can add beta-norma if blood pressure allows. If blood pressures remain low and
patient develops A-fib then would use short-term IV amiodarone. Would not plan to use long-term IV amiodarone and patient with underlying lung disease.
.
LONG. Creatinine 2.0. Monitor volume status closely
-Optimize hemodynamics
-Monitor I's and O's and labs
-Nephrology consulted
.
Postop emergent laparotomy/colectomy for bowel perforation.
-Management directed by colorectal surgery
.
Pulmonary. Patient with a history of pulmonary disease/interstitial lung disease/bronchiectasis and prior history of pneumothorax. Management directed by pulmonary/critical care
.
Hypertension. History of hypertension. Patient currently having issues with hypotension. Will continue to monitor as patient recovers
Hip right hip replacement 1 week ago.
Data Reviewed
-
EKG: Report Reviewed by me (Atrial fibrillation with rapid ventricular spots heart rate of 164 06/08/2024 at 0608. ECG 05/12/2024 normal sinus rhythm)
Radiology: Report Reviewed by me
Medical Tests (Nuc Med, Echo etc): Report Reviewed by me
Labs: Labs Reviewed by me and Discussed with Nurse
[2024-06-08] MEDS: NSS 500 IV (11:50)
--- NOTE | 2024-06-08 12:30 | PTCARENOTE ---
"Patient went back into rapid afib. obtained EKG and notified cardiology. Amio gtt ordered. Patient also continued to be lethargic. repeat labs sent at 1200. glucose on labs 62, POC check was 52, hypoglycemia protocol followed. Notified "Miranda"Leann and Dr. Barone. Lactic and ABG also ordered. daughter at bedside notified. repletion of calcium ordered and hung. two new peripheral IVs started. "
[2024-06-08 12:38] LABS: ALT (SGPT) 31 U/L (0-35); AST (SGOT) 54 U/L (14-36); Albumin 1.7 g/dl (3.5-5.0); Alkaline Phosphatase 73 U/L (38-126); Blood Urea Nitrogen 61 mg/dl (7-17); Calcium 6.9 mg/dl (8.4-10.2); Carbon Dioxide 22 mmol/L (22-30); Chloride 96 mmol/L (98-107); Glucose 62 mg/dl (70-99); Magnesium 2.4 mg/dl (1.6-2.3); Phosphorus 6.6 mg/dl (2.5-4.5); Sodium 128 mmol/L (135-145); Total Protein 3.6 g/dl (6.3-8.2)
[2024-06-08] MEDS: DEXTROSE 50% SYRINGE 12.5 GRAMS IV (13:07)
[2024-06-08 13:11] LABS: Estimated Creatinine Clearance 19 ml/min; eGFR 20.17
[2024-06-08 13:19] LABS: Glucose - Point of Care 52 mg/dl (70-99)
[2024-06-08] MEDS: D5/0.9% SODIUM CHLORIDE 1000 IV ×2 (13:26→22:43)
[2024-06-08] MEDS: CORDARONE 103 MG IV ×2 (13:32→19:53)
[2024-06-08] MEDS: CORDARONE 518 MG IV (13:32)
[2024-06-08 13:37] LABS: Glucose - Point of Care 96 mg/dl (70-99)
--- NOTE | 2024-06-08 13:37 | CM ---
CM following re: discharge planning.
Discussed in Rounds, reviewed pt's chart, met with pt and pt's daughter Susanna at bedside. Pt's daughter stated she is the only one child and has POA.
Pt is a 79 year old female admitted with primary dx of POD#1 Exploratory laparotomy, lysis of his adhesions, sigmoidectomy, creation of end colostomy. post operation intubation, extubated today.
Per daughter, pt lives alone in a condo, 6 steps to enter, has a RW, cane, raised toilet seat, hip kit. Per daughter pt just had a hip surgery one week ago.
Pt's daughter feels that her mother will probably need a rehab upon the discharge and she is requested [facility]. CM will make a referral to [facility] when clinically appropriate. For a back up plan, daughter mentioned [facility].
PCP: Scotty shah
Pharmacy: [facility].
D/C plan: per daughter request, [facility]. Back up plan: [facility].
CM will follow with discharge plan updates as hospitalization progresses
[2024-06-08] MEDS: CALCIUM GLUCONATE 100 IV (13:45)
[2024-06-08 13:52] LABS: Lactic Acid 2.6 mmol/L (0.7-2.0)
[2024-06-08 14:09] LABS: B.E. -2.5 mmol/L; HCO3 21.6 mmol/L (21-28); O2 Saturation % 99.6 % (94-98); PCO2 34 mmHg (32-35); PO2 170 mmHg (83-108); pH 7.41 (7.35-7.45)
[2024-06-08 15:42] LABS: Glucose - Point of Care 125 mg/dl (70-99)
[2024-06-08 16:34] LABS: Lactic Acid 2.5 mmol/L (0.7-2.0)
[2024-06-08 17:47] LABS: Glucose - Point of Care 126 mg/dl (70-99)
[2024-06-08 17:49] LABS: Hematocrit 31.2 % (37.0-47.0); Hemoglobin 11.1 g/dL (12.0-16.0); Mean Corp Hgb Conc. 35.6 g/dL (33.0-37.0); Mean Corpuscular Hgb 31.4 pg (27.0-31.0); Mean Corpuscular Volume 88.4 fL (81.0-99.0); Red Blood Cell Count 3.53 10^6/uL (4.20-5.40); Red Cell Dist. Width 12.8 % (11.5-14.5); White Blood Cell Count 24.1 10^3/uL (4.8-10.8)
--- NOTE | 2024-06-08 18:29 | W.PN.UPDATE ---
Update Note
Progress Note Update
Saw and examined patient. Patient is awake and extubated, alert and oriented, but somnolent/sluggish. Follows commands and moving all extremities. Denies significant belly pain or nausea.
On exam, systolic BP upper 90s, heart rate initially 130s, but fell to 80s�100s; dry mucous membranes, no focal deficits, abdomen soft, mildly distended/none tympanitic, appropriately tender, no rebound or guarding; ostomy pink without output; PRINCE
output serous, NGT output light bilious, Ramon output less than 5 cc/hr
� Pain control; follows commands without focal deficits, sluggishness likely delayed effects of anesthesia
� Extubated and saturating/mentating well; monitor for signs of fluid overload (i.e.�desaturation, SOB)
� A-fib with RVR, continue Amio drip, appreciate cardiology
�Repeat Hb 11 from 13, likely hemodilutional; hold DVT PPx overnight and follow-up in a.m.
� Continue n.p.o. with NGT; expect prolonged recovery of bowel function
�LONG with oliguria; appreciate nephrology, patient appears dry; will give a 1 L bolus and increase IVF to 125; strict I's/O's
� Continue IV Zosyn
� Discussed the above with nurse, electronic wirer and patient's daughter Susanna
[2024-06-08] MEDS: LR 1000 IV (18:43)
[2024-06-08 19:07] LABS: Mean Platelet Volume 10.8 fL (7.4-10.4); Platelet Count 222 10^3/uL (130-400)
[2024-06-08 19:17] LABS: Segmented Neutrophils 41 % (42-75)
[2024-06-08 19:18] LABS: Absolute Neutrophils -Man Diff 20.9 10^3/uL (1.4-6.5); Band Neutrophils 46 % (0-3); Lymphocytes 5 % (20-51)
[2024-06-08 19:19] LABS: Metamyelocytes 6 % (-); Monocytes 2 % (2-9)
[2024-06-08 19:20] LABS: Anisocytosis 1+; Normal RBC Morphology No; Platelets Checked Yes
[2024-06-08 19:21] LABS: Acanthocytes Slight; Hypochromasia Slight; Microcytosis Slight; Ovalocytes Slight; Polychromasia Slight; Total Cells Counted 100
--- NOTE | 2024-06-08 19:56 | PTCARENOTE ---
Dr. Barone at bedside pt in and out of Afib in the 130s, ordered Amio bolus (see MAR) and to keep amio gtt @ 1 mg/min.
[2024-06-08 20:00] LABS: Lactic Acid 2.7 mmol/L (0.7-2.0)
[2024-06-08 23:48] LABS: Lactic Acid 3.1 mmol/L (0.7-2.0)
[2024-06-09] VITALS (24 sets, daily range): BP systolic 93–131; BP diastolic 54–81; BMI 25.2
[2024-06-09 00:10] LABS: Glucose - Point of Care 188 mg/dl (70-99)
--- NOTE | 2024-06-09 01:10 | PTCARENOTE ---
Systems reviewed, no new changes in assessment. Pt is laying in bed with call booth in reach.
[2024-06-09] MEDS: ZOSYN 50 IV ×4 (01:56→19:38)
[2024-06-09 03:17] LABS: Glucose - Point of Care 189 mg/dl (70-99)
[2024-06-09] MEDS: OFIRMEV 100 IV ×4 (03:32→23:09)
[2024-06-09 03:45] LABS: Hematocrit 27.8 % (37.0-47.0); Hemoglobin 9.9 g/dL (12.0-16.0); Mean Corp Hgb Conc. 35.6 g/dL (33.0-37.0); Mean Corpuscular Hgb 30.8 pg (27.0-31.0); Mean Corpuscular Volume 86.6 fL (81.0-99.0); Mean Platelet Volume 10.1 fL (7.4-10.4); Platelet Count 180 10^3/uL (130-400); Red Blood Cell Count 3.21 10^6/uL (4.20-5.40); Red Cell Dist. Width 12.6 % (11.5-14.5); White Blood Cell Count 25.3 10^3/uL (4.8-10.8)
--- NOTE | 2024-06-09 03:57 | PTCARENOTE ---
Systems reviewed, no new changes in assessment. AM labs provided. Q2T provided. Safe environment maintained.
[2024-06-09 04:09] LABS: Lactic Acid 2.8 mmol/L (0.7-2.0)
[2024-06-09 04:11] LABS: ALT (SGPT) 29 U/L (0-35); AST (SGOT) 52 U/L (14-36); Albumin 1.7 g/dl (3.5-5.0); Alkaline Phosphatase 89 U/L (38-126); Blood Urea Nitrogen 63 mg/dl (7-17); Carbon Dioxide 19 mmol/L (22-30); Chloride 97 mmol/L (98-107); Glucose 187 mg/dl (70-99); Magnesium 2.4 mg/dl (1.6-2.3); Phosphorus 5.9 mg/dl (2.5-4.5); Potassium 4.1 mmol/L (3.5-5.1); Sodium 128 mmol/L (135-145); Total Bilirubin 1.8 mg/dl (0.2-1.3); Total Protein 3.6 g/dl (6.3-8.2)
[2024-06-09 04:20] LABS: Estimated Creatinine Clearance 21 ml/min; eGFR 22.39
[2024-06-09] MEDS: CORDARONE 518 MG IV (04:25)
[2024-06-09] MEDS: D5/0.9% SODIUM CHLORIDE 1000 IV ×3 (06:13→22:03)
--- NOTE | 2024-06-09 07:16 | W.PN.INTV ---
Today's Communication / Plan
Recommendations
Extubated yesterday and doing relatively well
Hemoptysis this AM, self-limited, CXR negative, continue observation
Hb noted, repeat labs this PM
GNB noted in blood, consult ID
Maintained on IV amio per cards
Tenuous course, continue observation in ICU
Assessment
-
Patient is a 79 year old F with past history of HTN, recent R hip [place] 05/30/24, mild cognitive impairment, ILD/bronchiectasis, h/o spontaneous PTX presenting to ER for abdominal pain, nausea, vomiting. Patient symptoms started approximately 4
days ago. In the ER CT scan of the abdomen pelvis showed pneumoperitoneum suspicious for bowel perforation, likely sigmoid. Underwent emergent OR intervention 06/07/24 s/p exploratory laparotomy, lysis of his adhesions, sigmoidectomy, creation of
end colostomy for perforated stercoral colitis. She is perioperatively intubated and admitted to ICU overnight for further management. Required levophed overnight, now off this AM.
Perforated stercoral colitis s/p Exploratory laparotomy, lysis of adhesions, sigmoidectomy, creation of end-colostomy 06/07/[address]
Abd pain, N/V
Periop mech vent
Leukocytosis with bandemia 51%
Metabolic acidosis, pH 7.16
Hyponatremia
LONG, creatinine 2.0
Transaminitis
GNB bacteremia
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
OA s/p R hip [place] on 05/30/24
Mild cognitive impairment
ILD/bronchiectasis
follows Dr Cunningham
PFT reveals mild obstruction. spirometry is stable mild crackles on exam noted
PET done 07/10/21 reveals 9 mm solid pulmonary nodule in lingula demonstrating moderate FDG uptake, max SUV 2.6.
h/o spontaneous PTX
Vitamin D deficiency
Mixed hyperlipidemia
History of tobacco abuse, quit 26 years ago, 32 pack year history
Plan
No current signs of metabolic encephalopathy or MS changes/following commands
Has pain at abdomen
Pain/sedation: PRN, wean sedation
RASS goals: 0
Hemodynamically stable, not requiring pressors.
Requiring pressors: levophed weaned to off
Cardiac history reviewed--tachycardia, while on pressors
Weaned off pressors, monitor for now
Maintained on IV amio
No prior ECHO for review, need new study
Cards eval pending
Monitor on telemetry
Oxygen needs: intubated for procedure, extubated 06/08/24
Prior history of lung disease: ILD history, mild obstruction on last PFT
Supplemental O2 as indicated to maintain sats > 89%
CXR/CT reviewed indicating no acute process
Hemoptysis 06/09 noted, self-limiting, likely related to upper-airway (oral care has been bloody)
Repeat CXR was negative, monitor for now
NPO, likely to stay with NGT in place
Diet advancement per CRS
Aspiration precautions, HOB > 30 degrees
Speech therapy eval can be considered if at elevated risk
GI prophylaxis if indicated for mechanical ventilation >48 hours, prior history of GERD, stress ulcer formation in the critically ill
LONG present
Creat at baseline, no history of renal disease
Void trials
Follow urine output, critical I/Os
Replete electrolytes as needed
Acid/base status: met acidosis, bicarb IVFs on board
Renal consult obtained
Fever and increased WBC on presentation, perforated bowel noted
Started on empiric antibiotics
Cultures sent/pending--prelim BC showing GNB, consult ID
Follow fever trend, WBC count
Lactate elevated on admission, continue to trend until <2
CBC stable, no signs of bleeding or coagulopathy.
DVT prophylaxis as assessed based on risk, including mechanical SCDs
Can transfuse if indicated for Hb <7, plt < 10
No prior h/o diabetes or thyroid disease
Monitor accuchecks PRN/SS coverage if needed
Diagnostic Data
Chest X-Ray: 06/07/24- Endotracheal tube is present with tip projecting over the T3-4 disc space, approximately 6 cm superior to the rafiq. Nasogastric tube is present, distal sidehole projecting over the stomach in the superomedial left upper
quadrant, inferior tip of the tube extending inferior to the [id number]. Lungs appear hypoinflated compared to previous radiograph. There is an 8 mm calcified granuloma in the lateral aspect of the left mid lung, stable.
06/09/23- No acute pulmonary process identified. Unchanged approximately 1 cm lateral left midlung nodule. Other smaller nodules seen on prior CT are indistinct at radiography. There is unchanged chronic partial atelectasis/scarring of the right
middle lobe and lingula with associated bronchiectatic changes.
CT Scan:CHEST 05/26/22- Redemonstration of several peripheral isolated and grouped nodular opacities throughout the upper and lower lobes bilaterally, overall decreased in size from prior. For example, the previously seen 1.8 cm index lesion in the
right lower lobe (series 201, image 31) now measures up to 1.2 cm (previously 1.8 cm) with decreased solid component. Similar changes to the majority of the remaining pulmonary nodules. There is one stable 1.4 x 0.9 cm left upper lobe nodule (image
31). No new or enlarging pulmonary nodules, areas of airspace disease, pleural effusions, pericardial effusions or enlarged lymph nodes in the thorax. No pneumothorax. Small hiatal hernia.
Echo: n/a
PFT's:
Reports and relevant images were personally reviewed.
Critical Care time 45 mins -- The patient is admitted for acute critical illness for the treatment of vital organ failure and/or prevention of further life-threatening conditions. Total care includes time spent in review of history, physical exam,
medications, hemodynamic/ventilator parameters, laboratory data, imaging and discussion with house staff, pharmacy, respiratory therapy, slide attendant, and nursing.
Subjective Dataa
Subjective Data
Date of Service:
Date of Service: June 09, 2024
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
Subjective:
Extubated yesterday, more awake today
Coughed large clot this AM, Hb 9.9
Has belly pain but not worsening
Objective Data
Data Reviewed
Vital Signs / I&O / Oxygen:
Vital Signs
Temp Pulse Resp BP Pulse Ox
97.5 F 70 15 109/55 92
06/09/24 03:30 06/09/24 06:00 06/09/24 06:00 06/09/24 06:00 06/09/24 06:00
Intake and Output
06/08/24 06/09/24 06/10/24
06:59 06:59 06:59
Intake Total 4290.0 / 4415.0 5487.4 / 5487.4
Output Total 626 / 626 1560 / 1560
Balance 3664.0 / 3789.0 3927.4 / 3927.4
SaO2 [A/C] 97
SaO2 92
Nasal Cannula flow liters per 2
minute
Physical Exam
General: Comfortable and Other (NAD)
HEENT: Normocephalic, Anicteric and Moist Mucous Membranes
Cardiovascular: S1-S2 and Regular Rhythm
Respiratory: Clear
GI: Soft, Non Distended, Non Tender and NG Tube
Neurology: Awake, Alert, Oriented and No Motor Deficits
Skin: Warm, Dry and Good Color
Labs/Micro/Reports
Lab Data
06/09/24 03:35
06/09/24 03:35
Laboratory Results
06/08/24 06/08/24
10:08 13:57
pH 7.44 7.41
pCO2 30 L 34
pO2 117 H 170 H
HCO3 20.4 L 21.6
O2 Delivery Level
Microbiology
06/07/24 10:26 Blood/Venous Blood Culture - Preliminary
Positive culture in progress
06/07/24 10:26 Blood/Venous Gram Stain - Preliminary
06/07/24 10:27 Blood/Venous Blood Culture - Preliminary
Positive culture in progress
06/07/24 10:27 Blood/Venous Gram Stain - Preliminary
06/07/24 10:27 Urine Urine Culture - Final
No Significant Growth
06/07/24 09:19 Nasal Swab Influenza Types A & B (EVI) - Final
Negative for Influenza A & B, NAAT
Negative results must be combined with clinical observations
and patient history.
Nucleic Acid Amplification test (NAAT)performed on the
[employer] platform.
--- NOTE | 2024-06-09 07:41 | W.PN.HOSP.TC ---
Today's Communication/Plan
-
The patient has been extubated and is breathing normally on room air. The patient is no longer on Levophed. She continues to have an NGT. Ostomy site appears to be healing well and the patient is tender around the healing surgical site. Will
consider downgrading once she is more medically stable.
Assessment / Plan
Assessment / Plan
HPI: Patient is a 71-year-old female who presented to [facility] emergency department due to abdominal pain and nausea. She was postop day 8 from a right hip replacement. Patient stated that her symptoms started about 5 days prior to her
presentation. Her symptoms started at night with abdominal pain which progressed significantly over the past few days prior to her presentation. She started having nausea and vomited 4 days prior to presentation and every day since then. Her last
bowel movement was 6 days prior to her presentation and she only had 2 bowel movements since surgery. She had been taking oxycodone every 6 hours and alternating with Tylenol since her surgery. She had also been on a steroid Dosepak which ended
the night that her abdominal pain began. At the time of her presentation she felt distended and nauseous and the apex of her pain was the night prior to her presentation. The pain was so extremely painful that it woke her up from sleep. She has
never had abdominal surgery before. Her last colonoscopy was 2 years ago and there were no pertinent findings as per patient. In the emergency department her vitals were normal. Her white blood cells were within normal range at 9.3 in the
emergency department. The patient was hyponatremic with a sodium level of 123, hypochloremic at 93, low bicarb at 18, and elevated BUN at 55, and an elevated creatinine at 1.5. The patient's lactic acid was found to be 4.3. The patient was nasal
swab for influenza and was negative. Blood culture and urine culture was sent and the patient was also screened for MRSA. An abdominal CT was ordered showing findings suggesting perforated bowel probable at sigmoid colon with associated
retroperitoneal and intraperitoneal free air, air-fluid level suggesting abscess formation and extraluminal stool. General surgery and colorectal surgery was consulted. The patient was admitted to [facility] for small bowel perforation.
Assessment/Plan:
-Acute sigmoid bowel perforation with acute surgical abdomen:
Patient's lactic acid was 4.3 in the emergency department
The patient was hyponatremic with a sodium of 123, hypochloremic at 93, low bicarb at 18, elevated BUN at 55, and an elevated creatinine at 1.5 in the emergency department
An abdominal CT showed findings suggesting perforated bowel probable at sigmoid colon with associated retroperitoneal and intraperitoneal free air, air-fluid level suggesting abscess formation and extraluminal stool.
Surgery and colorectal surgery consulted
IV fluid support given
Patient is currently postop from exploratory laparotomy, sigmoidectomy, and creation of end colostomy
Admitted to ICU
Hydromorphone/Zofran as needed
Continue IV Zosyn
The patient has been extubated and is on room air
Levophed has been weaned down and discontinued
-Hyponatremia:
Patient was found to be hyponatremic with a sodium of 123 in the emergency department.
Sodium is 129 on 06/08/2024 -is 128 on 06/09/2024
Continue IV fluid support
-Acute kidney injury secondary to bowel perforation/infection/acute process:
Patient's baseline creatinine is 0.8 taken on 05/12/2024
Lactic acid was 4.3 in the emergency department
On presentation to the emergency department on 06/07/2024 the patient had a creatinine of 1.5 indicating acute kidney injury.
On 06/08/2024 creatinine is 2.0 continue to trend creatinine -was 2.4 at 12: 02 on 06/08/2024 and has begun trending down on 06/09/2024 at 2.2
-Essential hypertension:
Holding home hypertension meds -will consider resuming medications once patient is more hemodynamically stable postoperatively
-Mild cognitive impairment:
Monitoring
-Total right hip replacement on 05/30/2024
-Interstitial lung disease with bronchiectasis
-Past medical history of spontaneous pneumothorax
FULL CODE STATUS
DVT prophylaxis: Sequential compression devices
Stress ulcer prophylaxis: Famotidine
Imaging:
-Abdominal CT conducted on 06/07/2024:
New findings suggesting perforated bowel probable sigmoid colon with associated retroperitoneal and intraperitoneal free air, air-fluid levels suggesting abscess formation and extraluminal stool.
Mild small bowel dilatation probably ileus due to reactive change. New
Tiny bilateral pleural effusions. New
Too small to characterize hypodense left renal lesion likely a benign cyst.
Mild lingular bronchiectasis. Stable
Critical value: Free air.
-Chest x-ray conducted on 06/07/2024:
Endotracheal tube is present with its tip 6 cm above the rafiq.
Anticipated Discharge: 24 - 48 hours
Subjective/Interval History
-
Met with patient at the bedside. She has been extubated and is alert. She responds to questions coherently and knows where she is. She states that she is extremely fatigued and weak. She stated that she had a strong urge to cough and coughed
something large up but is unsure what was coughed up.
Objective Data
-
Labs:
Laboratory Results
06/09/24
03:35
WBC 25.3 H
Hgb 9.9 L
Hct 27.8 L
Plt Count 180
Sodium 128 L
Potassium 4.1
Chloride 97 L
Carbon Dioxide 19 L
BUN 63 H
Creatinine 2.2 H
Glucose 187 H
Calcium 7.0 L
Total Bilirubin 1.8 H
AST 52 H
ALT 29
Alkaline Phosphatase 89
Vital Signs:
Vital Signs
Temp Pulse Resp BP Pulse Ox
97.5 F 70 15 109/55 92
06/09/24 03:30 06/09/24 06:00 06/09/24 06:00 06/09/24 06:00 06/09/24 06:00
I&O
06/08/24 06/09/24 06/10/24
06:59 06:59 06:59
Intake Total 4290.0 / 4415.0 5487.4 / 5487.4
Output Total 626 / 626 1560 / 1560
Balance 3664.0 / 3789.0 3927.4 / 3927.4
Review of Systems
-
History Source: Patient
Constitutional: Reports Fatigue and Weakness
EENT: Reports Sore Throat
Respiratory: Reports Cough
Cardiac: Reports No Symptoms
Abdomen/GI: Reports Abdominal Pain (Tenderness on the left side near the ostomy site)
Breast: Reports No Symptoms
Genitourinary: Reports No Symptoms and Vaginal Discharge
Musculoskeletal: Reports No Symptoms
Skin: Reports No Symptoms
Neuro: Reports No Symptoms
Endocrine: Reports No Symptoms
Hematologic / Lymphatic: Reports No Symptoms
Physical Exam
-
General: Well Developed and Appears Chronically Ill
HEENT: Normocephalic and Atraumatic
Respiratory: Clear to Auscultation and Non Labored Respirations; Negative Accessory Resp Muscle Use
Cardiac: S1/S2; Negative Murmur, Rub or JVD
Breast: Deferred by me
GI: Soft, Nontender, Nondistended and Ostomy (Left side)
Rectal: Deferred by Provider
Genito-urinary: Deferred by me
Musculoskeletal: No Clubbing, No Cyanosis and No Edema
Skin: Warm and Dry
Neuro: Awake, Alert, Oriented and AO x 3
Psych: Calm
--- NOTE | 2024-06-09 08:00 | PTCARENOTE ---
Received patient at change of shift. patient was laying in bed, had clots of blood around mouth and on neck, suctioned clots out of her mouth and did extensive mouth care. notified physician and CXR was obtained. Patient is drowsy, lethargic,
oriented to self, forgetful. She is in a sinus rhythm in the 60s. remains on amio gtt at 1mg as ordered. patient had been on room air, applied 2L nasal cannula, saturation 96%. She remains NPO, NGT irrigated, is on continuous suction. Ramon
catheter has justyna/sediment urine. urine output increasing since prior shift. hold of on diuretics for now per renal. Wounds as documented in shift assessment. will review orders. daughter Susanna updated on plan of care. will send repeat labs
at 1200.
--- NOTE | 2024-06-09 08:23 | W.PN.UPDATE ---
Update Note
Progress Note Update
Right hip dressing changed. Minimal dried blood on the dressing/incision. Incision was cleaned with alcohol. Moderate edema in the thigh without pain. Passive motion nonpainful. Calf is soft and nontender. Distal neurovascular was intact.
Appreciate medical team's input for patient. Continue with formal physical therapy. Skin clip removal 2 weeks postop.
--- NOTE | 2024-06-09 08:49 | PTOTSP ---
Reviewed chart and noted pt was extubated yesterday. Will need new orders for PT and OT if stable to begin therapy activities.
--- NOTE | 2024-06-09 10:53 | W.PN.NEPH.PH ---
Today's Communication / Plan
-
IV fluids
Assessment/Plan
-
79-year-old female with PMH of HTN, HLD, interstitial lung disease with bronchiectasis, history of pneumonia multiple times, history of spontaneous pneumothorax x 2 who presents 8 days after right hip replacement;
Presents with� Colonic perforation s/p right hip replacement; status post colectomy with ostomy
Baseline creatinine 0.8 with admitting creatinine 1.5.
Impression.
Acute kidney injury in the setting of sepsis and hemodynamic.
Bowel perforation status post sigmoidectomy.
Hyponatremia.
Hypertension.
Status post total hip replacement May 30, 2024.
Interstitial lung disease..
Plan.
Baseline creatinine 0.8 with admitting creatinine 1.5.
Creatinine 2.4 on consult> improved down to 2.2 today
Continue supportive care maintenance IV fluids currently on bicarbonate drip okay to switch over to lactated Ringer's or normal saline.
She received 4 L per record and currently oliguric but not on pressors currently hemodynamically stable..
Continue supportive care
Antibiotics
Renal dose all medications for appropriate GFR until reaches steady state
Ramon catheter.
Urine output increased to 1.3 L out today.
Continue IV fluids
Total Time Spent with Patient (in minutes): 35
-
-
Date of Service: June 09, 2024
CC / HPI / ROS
-
Chief Complaint:
Abdominal pain
History of Present Illness:
Acute kidney injury secondary to sepsis and perforated viscus.
Review of Systems:
Extubated.
Nonoliguric.
No shortness of breath
Labs
-
Labs:
Sodium 128 mmol/L (135-145) L 06/09/24 03:35
Potassium 4.1 mmol/L (3.5-5.1) 06/09/24 03:35
Chloride 97 mmol/L (98-107) L 06/09/24 03:35
Carbon Dioxide 19 mmol/L (22-30) L 06/09/24 03:35
BUN 63 mg/dl (7-17) H 06/09/24 03:35
Creatinine 2.2 mg/dL (0.6-1.0) H 06/09/24 03:35
eGFR 22.39 06/09/24 03:35
Glucose 187 mg/dl (70-99) H 06/09/24 03:35
Calcium 7.0 mg/dl (8.4-10.2) L 06/09/24 03:35
Phosphorus 5.9 mg/dl (2.5-4.5) H 06/09/24 03:35
Albumin 1.7 g/dl (3.5-5.0) L 06/09/24 03:35
Physical Exam
-
Vital Signs:
Vital Signs
Temp Pulse Resp BP Pulse Ox
97.8 F 69 18 115/58 97
06/09/24 08:00 06/09/24 09:00 06/09/24 09:00 06/09/24 09:00 06/09/24 09:00
Respiratory:: Bilateral: Coarse
Lung Excursion:: Normal
Abdomen:: Soft
Bowel Sounds:: Decreased
Extremity Edema:: None: Bilateral:
Ramon Catheter: Yes
[2024-06-09 11:53] LABS: Glucose - Point of Care 156 mg/dl (70-99)
--- NOTE | 2024-06-09 12:17 | CON.ID ---
Consultation
-
Date/Time Consultation Requested: 06/09/24 11:37
Date/Time Consultation Performed: 06/09/24 12:18
Requesting Provider: Dr Noriega
Performing Provider: Dr Kat
Reason for Consultation: GNB bacteremia
Chief Complaint / Past History
Chief Complaint
Abdominal pain, nausea, vomiting
History of Present Illness
Ms Ortiz is a 79 year old female with history of ILD, bronchiectasis, previous spontaneous pneumothorax x2. She presented here 06/07 for abdominal pain/cramping, nausea, vomiting which began about 4 days prior to arrival. No diarrhea. By report
last colonoscopy was 2 years ago and normal
Note recent R hip replacement 05/30/[address] Lyon.
Since arrival here patient has been afebrile, bp stable, wbc initially 15 now 25, hbg 9.9, plt 180, L shift present on arrival, na 129 now 128, K initially 5 now 4.1, cr 1.5 on arrival - baseline 0.8 now 2.2, lactic acid persistent
CT showed bowel perforation - sigmoid suspected on 06/07. She was seen by colorectal surgery, taken to the OR same evening, underwent Exploratory laparotomy, lysis of adhesions, sigmoidectomy, creation of end-colostomy; findings were relevant for
feculent peritonitis and large perforation in the mid sigmoid colon, assessment by surgery was suspected stercoral colitis. Patient also seen by orthopedic surgery PA who did not appreciate any signs of signs of complication. Then CT a/p 06/08
repeated showing sidmoidectomy and colostomy, no focal drainable fluid, Extubated on 06/08, yesterday successfully. Patient found to have GNR bacteremia and ID was consulted for assistance with management. Currently on zosyn. Blood cultures with
on arrival with GNR x2. Urine culture no significant growth.
Past History
Additional Past Medical History:
essential HTN, mild cognitive impairment, interstitial lung disease, bronchiectasis, h/o spontaneous PTX
Additional Past Surgical History:
R BARRINGTON on 05/30/24
Allergy History:
iodine Allergy (Verified 06/07/24 09:13)
Hives
Medications Reviewed: Yes
Social History
Tobacco: Former Smoker
Alcohol: Occasional
Drug: None
Family History
Family History: Not Pertinent
Review of Systems
Review of Systems
General: Negative Fever or Chills
All systems: All other systems were reviewed and were negative
Vital Signs
Temp Pulse Resp BP Pulse Ox
97.8 F 65 17 100/56 96
06/09/24 08:00 06/09/24 11:00 06/09/24 11:00 06/09/24 11:00 06/09/24 11:00
Physical Exam
Physical Exam
Constitutional: No Acute Distress and Chronically Ill
Cardiovascular: Regular Rate and S1/S2; Negative Murmur or Rub
Pulmonary: Clear and Symmetric; Negative Wheezes, Rales or Rhonchi
Gastrointestinal: Soft, Non Tender, Non Distended, Normal Bowel Sounds and Other (stoma pink)
Skin: Warm and Dry; Negative Rash or Jaundice
Wound: Other (abdominal and right hip surgical sites with dressings with moderate amount of strike through)
Lab / Diagnostic Study Results
06/09/24 03:35
Total Counted 100 06/08/24 17:09
Abs Neuts (Manual) 20.9 10^3/uL (1.4-6.5) H 06/08/24 17:09
Segmented Neutrophils 41 % (42-75) L 06/08/24 17:09
Band Neutrophils 46 % (0-3) H D 06/08/24 17:09
Lymphocytes (Manual) 5 % (20-51) L 06/08/24 17:09
PT 14.6 Sec (11.4-14.6) 06/07/24 14:37
INR 1.11 06/07/24 14:37
Lactic Acid 2.8 mmol/L (0.7-2.0) H 06/09/24 03:35
Ur Squamous Epith Cells 0-2 /LPF (Few) 06/07/24 10:27
Microbiology Results
Micro:
06/07/24 23:30 MRSA Screen - Final
Nose No Methicillin Resistant Staphylococcus aureus isolated.
06/07/24 10:26 Blood Culture - Preliminary
Blood/Venous Positive culture in progress
Gram Stain - Preliminary
06/07/24 10:27 Blood Culture - Preliminary
Blood/Venous Positive culture in progress
Gram Stain - Preliminary
06/07/24 10:27 Urine Culture - Final
Urine No Significant Growth
06/07/24 09:19 Influenza Types A & B (EVI) - Final
Nasal Swab Negative for Influenza A & B, NAAT
Negative results must be combined with clinical observations
and patient history.
Nucleic Acid Amplification test (NAAT)performed on the
[employer] NOW platform.
Assessment / Plan
Bowel Perforation likely due to Stercoral colitis
GNR Bacteremia due to bowel perforation
S/p Exploratory laparotomy, lysis of adhesions, sigmoidectomy, creation of end-colostomy
LONG
Recent right hip replacement
- repeat blood cultures x2
- 06/07 blood cultures both with GNR
- agree with zosyn
- fine for PICC line from ID perspective
follow clinically
[2024-06-09] MEDS: ZOFRAN 4 MG IV ×2 (12:26→19:38)
--- NOTE | 2024-06-09 12:39 | W.PN.UPDATE ---
Update Note
Progress Note Update
I saw and evaluated the patient. I reviewed the resident�s note and agree with findings and plan as documented in the resident�s note.
c/o mild abd discomfort
Gen: NAD, Awake and alert, NCAT
Eyes: no scleral icterus.
Neck: supple.
CV: RRR, +S1/S2, no m/r/g.
Resp:remains CTAB anteriorly, no rales, wheezes, or rhonchi.
Abd: Abdomen is moderately distended with very hypoactive bowel sounds. NT to the weight of the stethoscope
Skin: No rashes.
Neuro: CN2-12 intact
Psych: normal mood and affect
06/07/24 10:27 Blood/Venous Blood Culture - Preliminary
Positive culture in progress
06/07/24 10:27 Blood/Venous Gram Stain - Preliminary
06/07/24 10:26 Blood/Venous Blood Culture - Preliminary
Positive culture in progress
06/07/24 10:26 Blood/Venous Gram Stain - Preliminary
06/07/24 23:30 Nose MRSA Screen - Final
No Methicillin Resistant Staphylococcus aureus isolated.
06/07/24 10:27 Urine Urine Culture - Final
No Significant Growth
06/07/24 09:19 Nasal Swab Influenza Types A & B (EVI) - Final
Negative for Influenza A & B, NAAT
Negative results must be combined with clinical observations
and patient history.
Nucleic Acid Amplification test (NAAT)performed on the
[employer] NOW platform.
CT A/P (06/07/24, admission): New findings suggesting perforated bowel probable sigmoid colon with associated retroperitoneal and intraperitoneal free air, air-fluid levels suggesting abscess formation and extraluminal stool. Mild small bowel
dilatation probably ileus due to reactive change. New. Tiny bilateral pleural effusions. New. Too small to characterize hypodense left renal lesion likely a benign cyst. Mild lingular bronchiectasis. Stable. This case was discussed with
Ju on 06/07/2024 at 12:50 PM. Critical value: Free air.
CT A/P 06/08/24: s/p sigmoidectomy with colostomy in the left anterior abdominal wall. Colonic caliber is collapsed. Small bowel loops are somewhat poorly defined because of surrounding fluid and lack of GI luminal contrast within small bowel loops.
Small bowel loops appear to be mildly dilated and contains fluid and air, most likely an adynamic ileus. Residual free intraperitoneal air and left retroperitoneal air, decreased from previous examination. There is fluid present within the abdomen
and upper pelvis, left slightly greater than right, surrounding small bowel loops. No evidence for a focal drainable fluid collection at this time. Residual contrast within the kidneys, which likely represents decreased renal function and possible
ATN. Vicarious excretion of contrast into the gallbladder.
Septic shock due to acute sigmoid bowel perforation:
-s/p IVF resuscitation on admission
-s/p Exploratory laparotomy, lysis of adhesions, sigmoidectomy, creation of end-colostomy on 06/07/24
-was on Levophed for septic shock (likely POA) due to bowel perforation, stopped at 0400 on 06/08/24
-extubated 06/08/24AM
-cont Zosyn
-with POS BCxs c/s ID
-follow Cxs to completion
-Hb drop likely dilutional as well as due to acute blood loss anemia due to surgery. Current Hb stable.
Afib with RVR:
-was on cardizem gtt, now on Amio gtt
-AC once OK with surgery (currently with acute blood loss anemia due to surgery)
LONG:
-with non-AG met acidosis
-was on bicarb infusion, now on D5NS
-renal following
Other problems:
Acute blood loss anemia due to surgery
Hyponatremia, stable
Essential HTN: Holding home Norvasc with septic shock
R hip BARRINGTON on 05/30/24: ortho following
Mild cognitive impairment
Interstitial lung disease with bronchiectasis
h/o spontaneous PTX
Pt's daughter updated at bedside.
FULL/SCDs
Total critical care time spent = 32 min
[2024-06-09 12:47] LABS: Hematocrit 26.7 % (37.0-47.0); Hemoglobin 9.7 g/dL (12.0-16.0); Mean Corp Hgb Conc. 36.3 g/dL (33.0-37.0); Mean Corpuscular Hgb 31.7 pg (27.0-31.0); Mean Corpuscular Volume 87.3 fL (81.0-99.0); Mean Platelet Volume 10.6 fL (7.4-10.4); Platelet Count 174 10^3/uL (130-400); Red Blood Cell Count 3.06 10^6/uL (4.20-5.40); Red Cell Dist. Width 12.8 % (11.5-14.5); White Blood Cell Count 28.1 10^3/uL (4.8-10.8)
--- NOTE | 2024-06-09 12:55 | W.PN.CRS1 ---
Today's Communication / Plan
-
maintain ngt
appreciate consultations
trend labs
Assessment/Plan
-
POD#1 Exploratory laparotomy, lysis of his adhesions, sigmoidectomy, creation of end colostomy
NG tube: 125 mL
HGB 9.7 from 9.9, WBC 28.1 from 25.3, Creatinine 2.2 from 2.4
Creatinine 2.0 from 1.6
06/08- rpt CT A/P- no drainable abscess, small bowel loops mildly dilated
06/09- afib this AM, coughing bloody clots. Chest xray shows opacity LL base.
-Extubate per primary team
-NG tube to remain in place until regains bowel function
-OOB with physical therapy.
-Wound RN for stoma teaching
-Fabien in place, will remove in several days
-Maintain PRINCE drain for now
-Teds and SCDs in place for DVT prophylaxis. Heparin sq on hold.
-Appreciate hospitalist/multimedia engineer/nephrology/cardio/ID
-Continue IV antibiotics
-OR pathology pending
-Trend labs
-Blood cultures pending
Subjective Data
Procedure
06/07/24: Exploratory laparotomy, lysis of his adhesions, sigmoidectomy, creation of end colostomy
Subjective Data
Date of Service: June 09, 2024
Patient states she coughed up some old bloody clots this morning. It is at bedside. She denies shortness of breath. She denies nausea or vomiting. She has no abdominal pain.
Objective Data
-
Vital Signs
Temp Pulse Resp BP Pulse Ox
97.9 F 65 17 100/56 96
06/09/24 12:00 06/09/24 11:00 06/09/24 11:00 06/09/24 11:00 06/09/24 11:00
Intake & Output
06/08/24 06/09/24 06/10/24
06:59 06:59 06:59
Intake Total 4290.0 / 4415.0 5487.4 / 5645.7 1049.8 / 1049.8
Output Total 626 / 626 1560 / 1660 325 / 325
Balance 3664.0 / 3789.0 3927.4 / 3985.7 724.8 / 724.8
Intake:
IV fluids (Total) 4040.0 / 4165.0 4577.4 / 4735.7 949.8 / 949.8
Amio Gtt 599.4 / 632.7 199.8 / 199.8
D5/0.9% Sodium Chloride 1,000 2125 / 2250 750 / 750
ml @ 125 mls/hr IV .Q8H LINDA Rx#
:[id number]
LR bolus 500 / 500 1000 / 1000
Lr 1,000 ml @ 125 mls/hr IV . 750 / 750
Q8H LINDA Rx#:[id number]
NSS 2000 / 1999
Sterile Water For Injection 500 / 500
1000 ml 1,000 ml @ 0 mls/hr IV
.Q0M LINDA with Sodium
Bicarbonate 150 Meq Rx#:
[id number]
Sterile Water For Injection 125 / 250 750 / 750
1000 ml 1,000 ml @ 125 mls/hr
IV .Q9H12M LINDA with Sodium
Bicarbonate 150 Meq Rx#:
[id number]
amio bolus 103 / 103
fent 7.5 / 7.5
levo 157.5 / 157.5
IV piggybacks 160 / 160 850 / 850 100 / 100
Amount instilled into GI Tube ( 90 / 90 60 / 60
Total)
[place] Sump 90 / 90 60 / 60
Output:
Drain Output (Total) 135 / 135 60 / 60
Right Lower Abdomen Darius- 135 / 135 60 / 60
[place]
Gastrointestinal tube output ( 75 / 75 125 / 125
Total)
[place] Sump 75 / 75 125 / 125
Urine, Ramon 416 / 416 1375 / 1475 325 / 325
Lab Results
06/09/24 12:09
06/09/24 03:35
Physical Exam
-
General: AOx3
Abdomen: Soft, Non Distended, Tender (Mild) and Other (PRINCE drain serosanguineous)
Wound: Dressing in Place
[2024-06-09 13:15] LABS: Lactic Acid 2.6 mmol/L (0.7-2.0)
--- NOTE | 2024-06-09 13:43 | PTCARENOTE ---
Echo has been completed. patient is in sinus rhythm. asked cardiology about amio gtt. will change to 0.5. Repeat labs reported to surgical team. sent blood cultures, continuing to turn and reposition. supportive care ongoing.
--- NOTE | 2024-06-09 14:18 | W.PN.CD ---
Today's Communication / Plan
-
CONT amio gtt
Impression / Plan
-
A/P: 79-year-old woman with history of hypertension, hypercholesterolemia, interstitial lung disease, bronchiectasis, history of spontaneous pneumothorax who underwent right hip replacement 1 week ago and then presented to [facility] with
bowel perforation requiring emergent laparotomy with colectomy and colostomy. She had paroxysms of AF currently in SR.
A-fib with RVR
-New diagnosis
-CHADSVASC 4 (age greater than 75, female, hypertension)
-Occurred in the postoperative setting after emergent laparotomy and patient on pressors.
-Now back in sinus rhythm
-Off pressors.
-Start low-dose beta-norma when blood pressure will allow. Currently systolics in the 90s so would hold off with additional beta-norma until blood pressures improved.
-echo
-Patient is now off pressors which may decrease likelihood of atrial fibrillation but there is still a significant likelihood that she could develop recurrent A-fib.
-Short duration amiodarone, hopeful to start metoprolol soon
- she currently is NPO
.
LONG. Creatinine 2.0. Monitor volume status closely
-Optimize hemodynamics
-Monitor I's and O's and labs
-Nephrology consulted
.
Postop emergent laparotomy/colectomy for bowel perforation.
-Management directed by colorectal surgery
.
Pulmonary. Patient with a history of pulmonary disease/interstitial lung disease/bronchiectasis and prior history of pneumothorax. Management directed by pulmonary/critical care
.
Hypertension. History of hypertension. Patient currently having issues with hypotension. Will continue to monitor as patient recovers
Hip right hip replacement 1 week ago.
Physical Exam
Vital Signs/Labs
Vital Signs
Temp Pulse Resp BP Pulse Ox
97.9 F 65 17 100/56 96
06/09/24 12:00 06/09/24 11:00 06/09/24 11:00 06/09/24 11:00 06/09/24 11:00
06/08/24 06/09/24 06/10/24
06:59 06:59 06:59
Actual Weight 158 lb 8.198 oz 165 lb 12.602 oz
06/09/24 12:09
06/09/24 03:35
PT 14.6 Sec (11.4-14.6) 06/07/24 14:37
INR 1.11 06/07/24 14:37
APTT 27.5 Sec (23.4-35.0) 06/07/24 14:37
Magnesium 2.4 mg/dl (1.6-2.3) H 06/09/24 03:35
Physical Exam
Constitutional: No acute distress and Comfortable
EENT: Anicteric
Cardiovascular: Rhythm & rate is regular and Pedal edema is absent
Respiratory: Respiratory effort normal and Lungs clear to auscul.
GI: Distention present
Neuro/Psych: Alert and Oriented
Data Reviewed
-
Date of Service: June 09, 2024
Medical Decision Making: Reviewed Test Results
EKG: Tracing Personally Visualized and interpreted (sr)
Echo: Report Reviewed by me
Labs: Labs Reviewed by me
Critical Care Time (in minutes): 31
--- NOTE | 2024-06-09 17:05 | PTCARENOTE ---
IVT here and has retracted PICC line 5.5cm. PICC line now able to use, will switch all IVT tubing.
[2024-06-09] MEDS: DILAUDID 0.5 MG IV ×2 (17:27→21:26)
[2024-06-09 18:02] LABS: Glucose - Point of Care 152 mg/dl (70-99)
--- NOTE | 2024-06-09 20:43 | PTCARENOTE ---
Received pt from previous RN. Pt is AAOx3, drowsy/lethargic, withdrawn. NSR on the monitor. 2L NC O2 sat 95%, lungs diminished. LUQ colostomy. NG left nare 55 cm on continuous suction, irrigate Q4. Ramon in place, hygiene provided. R PRINCE drain
intact. Pt c/o 07/28 abd pain. PRN Zofran given for nausea. SCDs and LISETTE on. Amio gtt @ 0.5 mg/min. D5 NS @ 125 ml/hr. CHG bath provided. Pt is laying in bed with call booth in reach. Safe environment maintained.
[2024-06-09] MEDS: NSS (PRESERVATIVE FREE) 8 ML IV (21:17)
[2024-06-09] MEDS: PEPCID 20 MG IV (21:17)
[2024-06-10] VITALS (27 sets, daily range): BP systolic 116–165; BP diastolic 59–85; PULSE 67; O2SAT 94; BMI 25.5
--- NOTE | 2024-06-10 00:12 | PTCARENOTE ---
Systems reviewed, no new changes in assessment. Safe environment maintained.
[2024-06-10] MEDS: CORDARONE 518 MG IV (00:26)
[2024-06-10] MEDS: ZOSYN 50 IV ×4 (02:22→21:00)
[2024-06-10 03:56] LABS: Lactic Acid 1.9 mmol/L (0.7-2.0)
[2024-06-10 03:58] LABS: Hemoglobin 9.2 g/dL (12.0-16.0); Mean Corp Hgb Conc. 36.8 g/dL (33.0-37.0); Mean Corpuscular Hgb 32.1 pg (27.0-31.0); Mean Corpuscular Volume 87.1 fL (81.0-99.0); Mean Platelet Volume 10.6 fL (7.4-10.4); Platelet Count 147 10^3/uL (130-400); Red Blood Cell Count 2.87 10^6/uL (4.20-5.40); Red Cell Dist. Width 13.1 % (11.5-14.5); White Blood Cell Count 28.5 10^3/uL (4.8-10.8)
--- NOTE | 2024-06-10 04:11 | PTCARENOTE ---
Systems reviewed, no new changes in assessment. AM labs provided. Q2T provided. Safe environment maintained.
[2024-06-10 04:56] LABS: ALT (SGPT) 32 U/L (0-35); AST (SGOT) 47 U/L (14-36); Albumin 1.8 g/dl (3.5-5.0); Alkaline Phosphatase 141 U/L (38-126); Blood Urea Nitrogen 65 mg/dl (7-17); Calcium 7.3 mg/dl (8.4-10.2); Carbon Dioxide 22 mmol/L (22-30); Chloride 102 mmol/L (98-107); Estimated Creatinine Clearance 21 ml/min; Glucose 152 mg/dl (70-99); Magnesium 2.6 mg/dl (1.6-2.3); Phosphorus 5.3 mg/dl (2.5-4.5); Potassium 3.7 mmol/L (3.5-5.1); Sodium 132 mmol/L (135-145); Total Bilirubin 1.2 mg/dl (0.2-1.3); Total Protein 3.9 g/dl (6.3-8.2); eGFR 22.39
[2024-06-10] MEDS: OFIRMEV 100 IV (05:03)
[2024-06-10] MEDS: DILAUDID 0.5 MG IV ×4 (05:35→21:33)
[2024-06-10] MEDS: ZOFRAN 4 MG IV ×3 (05:35→18:23)
--- NOTE | 2024-06-10 05:45 | W.PN.UPDATE ---
Update Note
Progress Note Update
79F s/p R BARRINGTON 05/21/[address] Lyon with postop bowel perforation s/p exploratory laparotomy, lysis of adhesions, sigmoidectomy, creation of end-colostomy with Dr. Moreno 06/07/2024
Right incision area surrounding dressing dry without drainage or erythema or discharge, aquacell in place. Calf is soft and nontender. Distal neurovascular was intact.
Appreciate medical team's input for patient. Continue with formal physical therapy, posterior hip precautions x6 weeks. DVT ppx per primary; enrique removal 2 weeks postop.
[2024-06-10] MEDS: D5/0.9% SODIUM CHLORIDE 1000 IV ×3 (06:23→18:48)
--- NOTE | 2024-06-10 07:30 | PTCARENOTE ---
Assumed care of patient. Pt rec'd sleeping but easily arousable. Drowsy. Denies pain at present. A&Ox3. Pleasant. Cooperative w/ care. HENSON's but weak. S1 S2 reg w/ NSR on monitor. +PP. +2 hand and feet edema. Trace generalized edema.
Knee hi SCD's and teds. On 2L N/C...sat 94%. Lungs diminished...encouraged to cough and deep breath. Able to expectorate moderate amt of thick foote secretions. Abdomen round...hypo BS. Left nare [place] (55cm) -> LIWS. Draining greenish brown
liquid. Flushed w/ 30mls of NSS per MD order. LUQ colostomy...stoma pink and budded. Ramon draining yellow/justyna urine w/ sediment. Skin pale in color. Midline abdominal aquacell and right hip aquacell intact. Abdominal PRINCE noted...draining
serous fluid. Right DL PICC w/ IVF's and amiodarone gtt infusing. Multiple peripheral INT's. VS documented. Call booth within reach. Safe environment confirmed. Will continue to monitor.
--- NOTE | 2024-06-10 07:31 | W.PN.INTV ---
Today's Communication / Plan
Recommendations
Doing well, stable overnight
No further hemoptysis, labs and trending down
Remains with NGT to suction, CRS following
PT/OT, OOB
Transfer to tele, we will sign off upon transfer
Assessment
-
Patient is a 79 year old F with past history of HTN, recent R hip BARRINGTON 05/30/24, mild cognitive impairment, ILD/bronchiectasis, h/o spontaneous PTX presenting to ER for abdominal pain, nausea, vomiting. Patient symptoms started approximately 4
days ago. In the ER CT scan of the abdomen pelvis showed pneumoperitoneum suspicious for bowel perforation, likely sigmoid. Underwent emergent OR intervention 06/07/24 s/p exploratory laparotomy, lysis of his adhesions, sigmoidectomy, creation of
end colostomy for perforated stercoral colitis. She is perioperatively intubated and admitted to ICU overnight for further management. Required levophed overnight, now off this AM.
Perforated stercoral colitis s/p Exploratory laparotomy, lysis of adhesions, sigmoidectomy, creation of end-colostomy 06/07/[address]
Abd pain, N/V
Periop mech vent
Leukocytosis with bandemia 51%
Metabolic acidosis, pH 7.16
Hyponatremia
LONG, creatinine 2.0
Transaminitis
GNB bacteremia
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
OA s/p R hip BARRINGTON on 05/30/24
Mild cognitive impairment
ILD/bronchiectasis
follows Dr Cunningham
PFT reveals mild obstruction. spirometry is stable mild crackles on exam noted
PET done 07/10/21 reveals 9 mm solid pulmonary nodule in lingula demonstrating moderate FDG uptake, max SUV 2.6.
h/o spontaneous PTX
Vitamin D deficiency
Mixed hyperlipidemia
History of tobacco abuse, quit 26 years ago, 32 pack year history
Plan
No current signs of metabolic encephalopathy or MS changes/following commands
Has pain at abdomen
Pain/sedation: PRN, wean sedation
RASS goals: 0
Hemodynamically stable, not requiring pressors.
Requiring pressors: levophed weaned to off
Cardiac history reviewed--tachycardia, while on pressors
Weaned off pressors, monitor for now
Maintained on IV amio
No prior ECHO for review, need new study--reviewed/stable
Cards following
Monitor on telemetry
Oxygen needs: intubated for procedure, extubated 06/08/24
Prior history of lung disease: ILD history, mild obstruction on last PFT
Supplemental O2 as indicated to maintain sats > 89%
CXR/CT reviewed indicating no acute process
Hemoptysis 06/09 noted, self-limiting, likely related to upper-airway (oral care has been bloody)--no recurrence
Repeat CXR was negative, monitor for now
NPO, likely to stay with NGT in place
Diet advancement per CRS
Aspiration precautions, HOB > 30 degrees
Speech therapy eval can be considered if at elevated risk
GI prophylaxis if indicated for mechanical ventilation >48 hours, prior history of GERD, stress ulcer formation in the critically ill
LONG present
Creat at baseline, no history of renal disease
Void trials
Follow urine output, critical I/Os
Replete electrolytes as needed
Acid/base status: met acidosis, bicarb IVFs on board
Renal consult obtained
Fever and increased WBC on presentation, perforated bowel noted
Started on empiric antibiotics
Cultures sent/pending--prelim showing GNB, consult ID
Follow fever trend, WBC count
Lactate elevated on admission, continue to trend until <2
CBC stable, no signs of bleeding or coagulopathy.
DVT prophylaxis as assessed based on risk, including mechanical SCDs
Can transfuse if indicated for Hb <7, plt < 10
No prior h/o diabetes or thyroid disease
Monitor accuchecks PRN/SS coverage if needed
Diagnostic Data
Chest X-Ray: 06/07/24- Endotracheal tube is present with tip projecting over the T3-4 disc space, approximately 6 cm superior to the rafiq. Nasogastric tube is present, distal sidehole projecting over the stomach in the superomedial left upper
quadrant, inferior tip of the tube extending inferior to the [id number]. Lungs appear hypoinflated compared to previous radiograph. There is an 8 mm calcified granuloma in the lateral aspect of the left mid lung, stable.
06/09/23- No acute pulmonary process identified. Unchanged approximately 1 cm lateral left midlung nodule. Other smaller nodules seen on prior CT are indistinct at radiography. There is unchanged chronic partial atelectasis/scarring of the right
middle lobe and lingula with associated bronchiectatic changes.
CT Scan:CHEST 05/26/22- Redemonstration of several peripheral isolated and grouped nodular opacities throughout the upper and lower lobes bilaterally, overall decreased in size from prior. For example, the previously seen 1.8 cm index lesion in the
right lower lobe (series 201, image 31) now measures up to 1.2 cm (previously 1.8 cm) with decreased solid component. Similar changes to the majority of the remaining pulmonary nodules. There is one stable 1.4 x 0.9 cm left upper lobe nodule (image
31). No new or enlarging pulmonary nodules, areas of airspace disease, pleural effusions, pericardial effusions or enlarged lymph nodes in the thorax. No pneumothorax. Small hiatal hernia.
Echo: 06/09/24- Normal biventricular size and systolic function without regional wall motion abnormality. Mild to moderate mitral regurgitation. Pleural effusion present. No prior study available for comparison.
PFT's:
Reports and relevant images were personally reviewed.
Critical Care time 35 mins -- The patient is admitted for acute critical illness for the treatment of vital organ failure and/or prevention of further life-threatening conditions. Total care includes time spent in review of history, physical exam,
medications, hemodynamic/ventilator parameters, laboratory data, imaging and discussion with house staff, pharmacy, respiratory therapy, knitted goods shaper, and nursing.
Subjective Dataa
Subjective Data
Date of Service:
Date of Service: June 10, 2024
Chief Complaint: Breast Buffer Follow Up
Subjective:
Remains stable ON, no acute events
No new complaints
Objective Data
Data Reviewed
Vital Signs / I&O / Oxygen:
Vital Signs
Temp Pulse Resp BP Pulse Ox
98 F 62 15 134/66 94
06/10/24 07:03 06/10/24 07:00 06/10/24 07:00 06/10/24 07:00 06/10/24 07:00
Intake and Output
06/09/24 06/10/24 06/11/24
06:59 06:59 06:59
Intake Total 5487.4 / 5645.7 4097.0 / 4238.7 141.7 / 141.7
Output Total 1560 / 1660 2358 / 2358
Balance 3927.4 / 3985.7 1739.0 / 1880.7 141.7 / 141.7
SaO2 [A/C] 97
SaO2 94
Nasal Cannula flow liters per 2
minute
Physical Exam
General: Comfortable and Other (NAD)
HEENT: Normocephalic, Anicteric and Moist Mucous Membranes
Cardiovascular: S1-S2 and Regular Rhythm
Respiratory: Clear and Non-Labored Respirations
GI: Soft, Non Distended, Non Tender, NG Tube and Other (incision noted)
Neurology: Awake, Alert, Oriented and No Motor Deficits
Skin: Warm, Dry and Good Color
Labs/Micro/Reports
Lab Data
06/10/24 03:33
06/10/24 03:33
Microbiology
06/07/24 10:27 Blood/Venous Blood Culture - Preliminary
Positive culture in progress
06/07/24 10:27 Blood/Venous Gram Stain - Preliminary
06/07/24 10:26 Blood/Venous Blood Culture - Preliminary
Positive culture in progress
06/07/24 10:26 Blood/Venous Gram Stain - Preliminary
06/07/24 23:30 Nose MRSA Screen - Final
No Methicillin Resistant Staphylococcus aureus isolated.
06/07/24 10:27 Urine Urine Culture - Final
No Significant Growth
06/07/24 09:19 Nasal Swab Influenza Types A & B (EVI) - Final
Negative for Influenza A & B, NAAT
Negative results must be combined with clinical observations
and patient history.
Nucleic Acid Amplification test (NAAT)performed on the
[employer] platform.
--- NOTE | 2024-06-10 08:06 | PTOTSP ---
Needs new orders for PT and OT s/p extubation
--- NOTE | 2024-06-10 09:10 | PTCARENOTE ---
PT/OT reordered. PT/OT at bedside to see pt. OOB to chair w/ assist x 2 and rolling walker.
--- NOTE | 2024-06-10 09:11 | W.PN.ID1 ---
Date of Service
Date of Service: June 10, 2024
Today's Communication
continue zosyn added micafungin
Assessment / Plan
Bowel Perforation likely due to Stercoral colitis
GNR Bacteremia due to bowel perforation
S/p Exploratory laparotomy, lysis of adhesions, sigmoidectomy, creation of end-colostomy
LONG
Recent right hip replacement
- repeat blood cultures x2 no growth to date
- 06/07 blood cultures both with GNR - pending ID
- agree with zosyn
- given persistent leukocytosis - added micafungin
- has PICC, management per primary team
follow clinically
Chief Complaint
-: Other (bowel perforation, secondary peritonitis)
Subjective / Review of Systems
remains afebrile
bp stable
no events overnight
no complaints
Vital Signs / Physical Exam
Vital Signs
Vital Signs
Temp Pulse Resp BP Pulse Ox
98 F 62 15 134/66 95
06/10/24 07:03 06/10/24 07:00 06/10/24 07:00 06/10/24 07:00 06/10/24 07:30
Physical Exam
Constitutional: No Acute Distress and Chronically Ill
Cardiovascular: Regular Rate and S1/S2; Negative Murmur or Rub
Pulmonary: Clear and Symmetric; Negative Wheezes or Rales
Gastrointestinal: Soft, Non Tender, Non Distended, Normal Bowel Sounds and Other (stoma pink)
Skin: Warm and Dry; Negative Rash or Jaundice
Wound: Other (surgical dressings with moderate strikethrough bleeding - stable)
Lines: Other (drain serous fluid)
Objective Data
Lab Data
Lab Results
06/10/24 03:33
06/10/24 03:33
PT 14.6 Sec (11.4-14.6) 06/07/24 14:37
INR 1.11 06/07/24 14:37
APTT 27.5 Sec (23.4-35.0) 06/07/24 14:37
Estimated Creat Clear 21 ml/min 06/10/24 03:33
Lactic Acid 1.9 mmol/L (0.7-2.0) 06/10/24 03:33
Total Bilirubin 1.2 mg/dl (0.2-1.3) 06/10/24 03:33
AST 47 U/L (14-36) H 06/10/24 03:33
ALT 32 U/L (0-35) 06/10/24 03:33
Alkaline Phosphatase 141 U/L (38-126) H 06/10/24 03:33
Most recent labs reviewed.
Micro Results:
06/07/24 10:26 Blood Culture - Preliminary
Blood/Venous Positive culture in progress
Gram Stain - Preliminary
06/07/24 10:27 Blood Culture - Preliminary
Blood/Venous Positive culture in progress
Gram Stain - Preliminary
06/09/24 15:02 Blood Culture - Pending
Blood/Venous
06/09/24 12:09 Blood Culture - Pending
Blood/Venous
06/07/24 23:30 MRSA Screen - Final
Nose No Methicillin Resistant Staphylococcus aureus isolated.
06/07/24 10:27 Urine Culture - Final
Urine No Significant Growth
06/07/24 09:19 Influenza Types A & B (EVI) - Final
Nasal Swab Negative for Influenza A & B, NAAT
Negative results must be combined with clinical observations
and patient history.
Nucleic Acid Amplification test (NAAT)performed on the
[employer] platform.
--- NOTE | 2024-06-10 09:32 | W.PN.UPDATE ---
Update Note
Progress Note Update
Regular diet order entered in error last night; switched back to NPO this AM; progress note to follow
--- NOTE | 2024-06-10 09:33 | W.PN.CRS1 ---
Today's Communication / Plan
-
as below
Assessment/Plan
-
79-year-old female with PMH of HTN, HLD, interstitial lung disease with bronchiectasis, history of pneumonia multiple times, history of spontaneous pneumothorax x 2 who presents 8 days after right hip replacement; 4 days prior to admission, she
started to develop abdominal pain and nausea with decreased bowel function; the abdominal pain and nausea/vomiting continue to worsen; she denies any fevers, chest pain, or urinary symptoms; she does have dyspnea due to the abdominal pain; her last
colonoscopy was 2 years ago which she reports as normal (report not available to me); in the ED, her WBC was 9.3, CR 1.5 and a CTAP was done which shows moderate free air, extraluminal stool adjacent to the mid sigmoid colon with concern of sigmoid
perforation possibly due to diverticulitis
POD 3 ex lap, sigmoidectomy with end colostomy creation for perforated stercoral colitis; extensive washout ~9L for feculent peritonitis
- extubated and pressors weaned off by POD 1; initially oliguric, but UOP recovered; A-fib with RVR, stabilized on Amio
AFVSS
WBC 28.5 from 28.1, Hb 9.2 from 9.7, CR 2.2 from 2.2, T. bili 1.2 from 1.8
�Elevated leukocytosis, afebrile and without indicative symptoms
�CXR yesterday with vascular congestion and interstitial edema
�Will empirically send UA and lower extremity duplex; hold off on repeat CT scan of abdomen
�Continue IV Zosyn; gram-negative bacteremia, appreciate ID
� Pain control with Ofirmev and Dilaudid as needed
� Continue NC, wean as tolerated; appreciate pulmonology
� A-fib with RVR, continue Amio drip, appreciate cardiology
� Okay to start DVT PPx with subQ heparin
� Continue n.p.o. with NGT; expect prolonged recovery of bowel function
�LONG with oliguria; evidence of recovery with adequate urine output now; appreciate nephrology, would decrease IVF
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
Subjective Data
Procedure
06/07/24: Exploratory laparotomy, lysis of his adhesions, sigmoidectomy, creation of end colostomy
Subjective Data
Date of Service: June 10, 2024
No overnight events. Denies chest pain or shortness of breath.
Pain controlled.
Denies nausea/vomiting. Still NPO with NGT
No ostomy function. Ramon.
Objective Data
-
Vital Signs
Temp Pulse Resp BP Pulse Ox
98 F 62 15 134/66 95
06/10/24 07:03 06/10/24 07:00 06/10/24 07:00 06/10/24 07:00 06/10/24 07:30
Intake & Output
06/09/24 06/10/24 06/11/24
06:59 06:59 06:59
Intake Total 5487.4 / 5645.7 4097.0 / 4238.7 580.1 / 580.1
Output Total 1560 / 1660 2358 / 2533 475 / 475
Balance 3927.4 / 3985.7 1739.0 / 1705.7 105.1 / 105.1
Intake:
Oral fluids 50 / 50
IV fluids (Total) 4577.4 / 4735.7 3517.0 / 3658.7 500.1 / 500.1
Amio Gtt 599.4 / 632.7 517.0 / 533.7 50.1 / 50.1
D5/0.9% Sodium Chloride 1,000 2125 / 2250 3000 / 3125 450 / 450
ml @ 125 mls/hr IV .Q8H LINDA Rx#
:[id number]
LR bolus 1000 / 1000
Sterile Water For Injection 750 / 750
1000 ml 1,000 ml @ 125 mls/hr
IV .Q9H12M LINDA with Sodium
Bicarbonate 150 Meq Rx#:
[id number]
amio bolus 103 /
IV piggybacks 850 / 850 350 / 350 50 / 50
Amount instilled into GI Tube ( 60 60 180 / 180 30 / 30
Total)
[place]ent Sump 60 60 180 / 180 30 / 30
Output:
Drain Output (Total)
Right Lower Abdomen Darius-
[place]
Gastrointestinal tube output ( 125 / 125 325 / 325
Total)
Kent Sump 125 / 125 325 / 325
Urine, Ramon 1375 / 1475 2014 475 / 475
Lab Results
06/10/24 03:33
06/10/24 03:33
Physical Exam
-
General: No Acute Distress, AOx3, Well Developed and Other (Mildly tachypneic, glazed appearance, responsive and denies distress)
HEENT: Grossly Normal
Abdomen: Soft, Distended (Minimally distended, nontympanic), Tender (Appropriately mildly tender near midline incision), No Guarding, No Rebound and Other (Ostomy pink without function; PRINCE-18 mL serous; NGT-300 for 12 hours, light bilious)
Skin: Warm and Dry
Wound: Dressing in Place (Aquacel in place, stable strikethrough) and No Skin Erythema
--- NOTE | 2024-06-10 09:39 | W.PN.NEPH.PH ---
Today's Communication / Plan
-
reduce IVF
Assessment/Plan
-
79-year-old female with PMH of HTN, HLD, interstitial lung disease with bronchiectasis, history of pneumonia multiple times, history of spontaneous pneumothorax x 2 who presents 8 days after right hip replacement;
Presents with� Colonic perforation s/p right hip replacement; status post colectomy with ostomy
Baseline creatinine 0.8 with admitting creatinine 1.5.
Impression.
Acute kidney injury in the setting of sepsis and hemodynamic.
Bowel perforation status post sigmoidectomy.
Hyponatremia.
Hypertension.
Status post total hip replacement May 30, 2024.
Interstitial lung disease..
Plan.
follow BMP
reduce IVF
follow UOP
NGT per surgery
-
-
Date of Service: June 10, 2024
CC / HPI / ROS
-
Chief Complaint:
Abdominal pain
History of Present Illness:
Acute kidney injury secondary to sepsis and perforated viscus.
LONG/Cr stable 2.2
BP stable
Na low [address]
excellent UOP
Review of Systems:
no CP/SOB
Labs
-
Labs:
WBC 28.5 10^3/uL (4.8-10.8) H 06/10/24 03:33
RBC 2.87 10^6/uL (4.20-5.40) L 06/10/24 03:33
Hgb 9.2 g/dL (12.0-16.0) L 06/10/24 03:33
Hct 25.0 % (37.0-47.0) L 06/10/24 03:33
Plt Count 147 10^3/uL (130-400) 06/10/24 03:33
Sodium 132 mmol/L (135-145) L 06/10/24 03:33
Potassium 3.7 mmol/L (3.5-5.1) 06/10/24 03:33
Chloride 102 mmol/L (98-107) 06/10/24 03:33
Carbon Dioxide 22 mmol/L (22-30) 06/10/24 03:33
BUN 65 mg/dl (7-17) H 06/10/24 03:33
Creatinine 2.2 mg/dL (0.6-1.0) H 06/10/24 03:33
eGFR 22.39 06/10/24 03:33
Glucose 152 mg/dl (70-99) H 06/10/24 03:33
Calcium 7.3 mg/dl (8.4-10.2) L 06/10/24 03:33
Phosphorus 5.3 mg/dl (2.5-4.5) H 06/10/24 03:33
Albumin 1.8 g/dl (3.5-5.0) L 06/10/24 03:33
Physical Exam
-
Vital Signs:
Vital Signs
Temp Pulse Resp BP Pulse Ox
98 F 68 25 165/69 95
06/10/24 07:03 06/10/24 09:04 06/10/24 09:04 06/10/24 09:04 06/10/24 08:51
Cardiovascular:: Regular rate and rhythm
Respiratory:: Bilateral: Coarse
Lung Excursion:: Normal
Abdomen:: Nontender and Soft
Bowel Sounds:: None
Extremity Edema:: +1: Bilateral:
--- NOTE | 2024-06-10 09:55 | W.PN.UPDATE ---
Update Note
Progress Note Update
I saw and evaluated the patient. I reviewed the resident�s note and agree with findings and plan as documented in the resident�s note.
c/o diffuse abd discomfort
Gen: NAD, Awake and alert, NCAT
Eyes: no scleral icterus.
Neck: supple.
CV: RRR, +S1/S2, no m/r/g.
Resp: continues to remain CTAB anteriorly, no rales, wheezes, or rhonchi.
Abd: Abdomen is moderately distended with absent bowel sounds. NT to the weight of the stethoscope. colostomy without stool.
Skin: No rashes.
Neuro: CN2-12 intact
Psych: normal mood and affect
06/07/24 10:26 Blood/Venous Blood Culture - Preliminary
Positive culture in progress
06/07/24 10:26 Blood/Venous Gram Stain - Preliminary
06/07/24 10:27 Blood/Venous Blood Culture - Preliminary
Positive culture in progress
06/07/24 10:27 Blood/Venous Gram Stain - Preliminary
06/07/24 23:30 Nose MRSA Screen - Final
No Methicillin Resistant Staphylococcus aureus isolated.
06/07/24 10:27 Urine Urine Culture - Final
No Significant Growth
06/07/24 09:19 Nasal Swab Influenza Types A & B (EVI) - Final
Negative for Influenza A & B, NAAT
Negative results must be combined with clinical observations
and patient history.
Nucleic Acid Amplification test (NAAT)performed on the
[employer] NOW platform.
CT A/P (06/07/24, admission): New findings suggesting perforated bowel probable sigmoid colon with associated retroperitoneal and intraperitoneal free air, air-fluid levels suggesting abscess formation and extraluminal stool. Mild small bowel
dilatation probably ileus due to reactive change. New. Tiny bilateral pleural effusions. New. Too small to characterize hypodense left renal lesion likely a benign cyst. Mild lingular bronchiectasis. Stable. This case was discussed with
Ju on 06/07/2024 at 12:50 PM. Critical value: Free air.
CT A/P 06/08/24: s/p sigmoidectomy with colostomy in the left anterior abdominal wall. Colonic caliber is collapsed. Small bowel loops are somewhat poorly defined because of surrounding fluid and lack of GI luminal contrast within small bowel loops.
Small bowel loops appear to be mildly dilated and contains fluid and air, most likely an adynamic ileus. Residual free intraperitoneal air and left retroperitoneal air, decreased from previous examination. There is fluid present within the abdomen
and upper pelvis, left slightly greater than right, surrounding small bowel loops. No evidence for a focal drainable fluid collection at this time. Residual contrast within the kidneys, which likely represents decreased renal function and possible
ATN. Vicarious excretion of contrast into the gallbladder.
Septic shock due to acute sigmoid bowel perforation:
-s/p IVF resuscitation on admission
-s/p Exploratory laparotomy, lysis of adhesions, sigmoidectomy, creation of end-colostomy on 06/07/24
-was on Levophed for septic shock (likely POA) due to bowel perforation, stopped at 0400 on 06/08/24
-extubated 06/08/24AM
-cont Zosyn/Micafungin as per ID
-follow all Cxs to completion
-Hb drop likely dilutional as well as due to acute blood loss anemia due to surgery. Current Hb fairly stable.
Afib with RVR:
-was on cardizem gtt, now on Amio gtt (pt has converted to SR but cont amio gtt until pt can take meds enterally)
-Therapeutic AC once OK with surgery (currently with acute blood loss anemia due to surgery)
LONG:
-likely due to ATN
-with non-AG met acidosis
-was on bicarb infusion, now on D5NS
-renal following
Other problems:
Acute blood loss anemia due to surgery
Hyponatremia, stable
Essential HTN: Holding home Norvasc with septic shock
R hip BARR[place] on 05/30/24: ortho following
Mild cognitive impairment
Interstitial lung disease with bronchiectasis
h/o spontaneous PTX
Pt's daughter and granddaughter updated at bedside. Case discussed with RN, cardiology, pulm/CC, CRS.
Downgrade to tele.
FULL/Heparin
--- NOTE | 2024-06-10 09:56 | W.PN.CRS1 ---
Today's Communication / Plan
-
maintain ngt
await bowel function
OOB PT
abx per ID
Assessment/Plan
-
POD#3 Exploratory laparotomy, lysis of his adhesions, sigmoidectomy, creation of end colostomy
NG tube: 325 mL
HGB 9.2 (9.7), WBC 28.5 (28.1)
Creatinine 2.2 (2.2)
06/08- rpt CT A/P- no drainable abscess, small bowel loops mildly dilated
06/09- afib this AM, coughing bloody clots. Chest xray shows opacity LL base.
-NG tube to remain in place until regains bowel function
-OOB with physical therapy.
-Wound RN for stoma teaching
-Fabien in place, will remove in several days
-Maintain PRINCE drain for now
-Teds and SCDs in place for DVT prophylaxis. Heparin sq on hold.
-Appreciate hospitalist/dice person/nephrology/cardio/ID
-Continue IV antibiotics
-OR pathology pending
-Trend labs
-Blood cultures pending
-UA/LE dopplers ordered due to persistent leukocytosis
-Okay to downgrade from a surgical perspective
Subjective Data
Procedure
06/07/24: Exploratory laparotomy, lysis of his adhesions, sigmoidectomy, creation of end colostomy
Subjective Data
Date of Service: June 10, 2024
Patient states she was nauseous this morning. She has not had any flatus or stool yet. There are no further clots when she coughs.
Objective Data
-
Vital Signs
Temp Pulse Resp BP Pulse Ox
98 F 68 25 165/69 95
06/10/24 07:03 06/10/24 09:04 06/10/24 09:04 06/10/24 09:04 06/10/24 08:51
Intake & Output
06/09/24 06/10/24 06/11/24
06:59 06:59 06:59
Intake Total 5487.4 / 5645.7 4097.0 / 4238.7 580.1 / 580.1
Output Total 1560 / 1660 2358 / 2533 475 / 475
Balance 3927.4 / 3985.7 1739.0 / 1705.7 105.1 / 105.1
Intake:
Oral fluids 50 / 50
IV fluids (Total) 4577.4 / 4735.7 3517.0 / 3658.7 500.1 / 500.1
Amio Gtt 599.4 / 632.7 517.0 / 533.7 50.1 / 50.1
D5/0.9% Sodium Chloride 1,000 2125 / 2250 3000 / 3125 450 / 450
ml @ 125 mls/hr IV .Q8H LINDA Rx#
:[id number]
LR bolus 1000 / 1000
Sterile Water For Injection 750 / 750
1000 ml 1,000 ml @ 125 mls/hr
IV .Q9H12M LINDA with Sodium
Bicarbonate 150 Meq Rx#:
[id number]
amio bolus 103 / 103
IV piggybacks 850 / 850 350 / 350 50 / 50
Amount instilled into GI Tube ( 60 / 60 180 / 180 30 / 30
Total)
[place] Sump 60 / 60 180 / 180 30 / 30
Output:
Drain Output (Total) 18
Right Lower Abdomen Darius-
[place]
Gastrointestinal tube output ( 125 / 125 325 / 325
Total)
[place] Sump 125 / 125 325 / 325
Urine, Ramon 1375 / 1475 2014 475 / 475
Lab Results
06/10/24 03:33
06/10/24 03:33
Physical Exam
-
General: No Acute Distress and AOx3
Abdomen: Soft, Non Distended and Non Tender
Skin: Warm and Dry
Incision: Clear, Dry, Intact
--- NOTE | 2024-06-10 10:40 | WOUNDNOTE ---
[facility] RN note: Met with patient's daughter who is a nurse (director at [employer] [employer] [facility]) for review of ostomy teaching. Patient too tired to participate in teaching today. Patient's coccyx mild red and intact. She has a foam/gel chair cushion.
Discussed patient having an air mattress or air overlay if patient is transferred to Acute care with RADHA Ho. Patient's stoma is pink and budded. Peristomal skin intact. No stool noted in pouch. Megan Lobato, colorectal PA confirmed to remove
post op midline abdominal dressing and nursing can start daily dry gauze dressing with paper tape daily. Changed midline dressing, enrique and morenita intact. No erythema. Moderate sanguinous drainage. Colostomy appliance changed using Daron wafer
# [id number], stoma paste and [place] pouch # [id number]. Richard seals given in case needed in future. Instructed how to change and empty appliance. Daughter verbalized understanding. Heels off bed with pillow. Next appliance change due on Thursday.
--- NOTE | 2024-06-10 10:40 | WOUNDNOTE ---
[facility] RN note: Met with patient's daughter who is a nurse (director at [employer]) for review of ostomy teaching. Patient too tired to participate in teaching today. Her coccyx is mild red and intact. She has a foam/gel chair cushion. Discussed
patient having an air mattress or air overlay if patient is transferred to Acute care.
--- NOTE | 2024-06-10 10:40 | W.PN.HOSP.TC ---
Today's Communication/Plan
-
Nephrology has recommended reducing IV fluid and the patient has been switched over to D5 normal saline. Will consider adding therapeutic anticoagulation once cleared by surgery. Continue Zosyn and micafungin as per ID. Patient downgraded to
telemetry.
Assessment / Plan
Assessment / Plan
HPI: Patient is a 71-year-old female who presented to [facility] emergency department due to abdominal pain and nausea. She was postop day 8 from a right hip replacement. Patient stated that her symptoms started about 5 days prior to her
presentation. Her symptoms started at night with abdominal pain which progressed significantly over the past few days prior to her presentation. She started having nausea and vomited 4 days prior to presentation and every day since then. Her last
bowel movement was 6 days prior to her presentation and she only had 2 bowel movements since surgery. She had been taking oxycodone every 6 hours and alternating with Tylenol since her surgery. She had also been on a steroid Dosepak which ended
the night that her abdominal pain began. At the time of her presentation she felt distended and nauseous and the apex of her pain was the night prior to her presentation. The pain was so extremely painful that it woke her up from sleep. She has
never had abdominal surgery before. Her last colonoscopy was 2 years ago and there were no pertinent findings as per patient. In the emergency department her vitals were normal. Her white blood cells were within normal range at 9.3 in the
emergency department. The patient was hyponatremic with a sodium level of 123, hypochloremic at 93, low bicarb at 18, and elevated BUN at 55, and an elevated creatinine at 1.5. The patient's lactic acid was found to be 4.3. The patient was nasal
swab for influenza and was negative. Blood culture and urine culture was sent and the patient was also screened for MRSA. An abdominal CT was ordered showing findings suggesting perforated bowel probable at sigmoid colon with associated
retroperitoneal and intraperitoneal free air, air-fluid level suggesting abscess formation and extraluminal stool. General surgery and colorectal surgery was consulted. The patient was admitted to [facility] for small bowel perforation.
Assessment/Plan:
-Acute sigmoid bowel perforation with acute surgical abdomen:
Patient's lactic acid was 4.3 in the emergency department
The patient was hyponatremic with a sodium of 123, hypochloremic at 93, low bicarb at 18, elevated BUN at 55, and an elevated creatinine at 1.5 in the emergency department
An abdominal CT showed findings suggesting perforated bowel probable at sigmoid colon with associated retroperitoneal and intraperitoneal free air, air-fluid level suggesting abscess formation and extraluminal stool.
Surgery and colorectal surgery consulted
IV fluid support given
Patient is postop from exploratory laparotomy, sigmoidectomy, and creation of end colostomy
Hydromorphone/Zofran as needed
Continue IV Zosyn -white blood cells at 28.5 on 06/10/2024
Appreciate infectious diseases recommendations�micafungin given
The patient has been extubated and is on room air
Levophed has been weaned down and discontinued
The patient has been downgraded to telemetry as she no longer is on pressors and is not intubated.
-Hyponatremia:
Patient was found to be hyponatremic with a sodium of 123 in the emergency department.
Sodium is 129 on 06/08/2024 -is 128 on 06/09/2024, is 132 on 06/10/2024
Nephrology has recommended reducing IV fluids.
-Acute kidney injury secondary to bowel perforation/infection/acute process:
Patient's baseline creatinine is 0.8 taken on 05/12/2024
Lactic acid was 4.3 in the emergency department
On presentation to the emergency department on 06/07/2024 the patient had a creatinine of 1.5 indicating acute kidney injury.
On 06/08/2024 creatinine is 2.0 continue to trend creatinine -was 2.4 at 12: 02 on 06/08/2024 and has begun trending down on 06/09/2024 at 2.2, remained 2.2 on 06/10/2024
Was on a bicarb infusion but now is on D5 normal saline
Atrial fibrillation with rapid ventricular response:
New diagnosis found postoperatively.
[id number] of 4 due to the age being greater than 75, female, hypertension
Patient is now back in sinus rhythm after receiving Amio
Will start low-dose beta-norma when blood pressure will allow.
Echocardiogram conducted on 06/09/2024 showed aortic sclerosis without stenosis and no aortic regurgitation. Moderate tricuspid regurgitation. Mild pulmonic regurgitation. Pleural effusion present
-Essential hypertension:
Holding home hypertension meds -will consider resuming medications once patient is more hemodynamically stable postoperatively
-Mild cognitive impairment:
Monitoring
-Total right hip replacement on 05/30/2024
-Interstitial lung disease with bronchiectasis
-Past medical history of spontaneous pneumothorax
FULL CODE STATUS
DVT prophylaxis: Heparin sc
Stress ulcer prophylaxis: Famotidine
Imaging:
-Abdominal CT conducted on 06/07/2024:
New findings suggesting perforated bowel probable sigmoid colon with associated retroperitoneal and intraperitoneal free air, air-fluid levels suggesting abscess formation and extraluminal stool.
Mild small bowel dilatation probably ileus due to reactive change. New
Tiny bilateral pleural effusions. New
Too small to characterize hypodense left renal lesion likely a benign cyst.
Mild lingular bronchiectasis. Stable
Critical value: Free air.
-Chest x-ray conducted on 06/07/2024:
Endotracheal tube is present with its tip 6 cm above the rafiq.
-Echocardiogram conducted on 06/09/2024:
Normal biventricular size and systolic function without regional wall motion abnormality.
Mild to moderate mitral regurgitation.
Pleural effusion present.
No prior study available for comparison.
Anticipated Discharge: > 48 hours
Subjective/Interval History
-
Date of Service: June 10, 2024
Met with patient at the bedside. She was laying in bed sleeping with a warm cloth on her eyes and forehead. She briefly spoke for a bit stating that she is tired. She did not offer any additional complaints at the present time.
Objective Data
-
Labs:
Laboratory Results
06/10/24
03:33
WBC 28.5 H
Hgb 9.2 L
Hct 25.0 L
Plt Count 147
Sodium 132 L
Potassium 3.7
Chloride 102
Carbon Dioxide 22
BUN 65 H
Creatinine 2.2 H
Glucose 152 H
Calcium 7.3 L
Total Bilirubin 1.2
AST 47 H
ALT 32
Alkaline Phosphatase 141 H
Vital Signs:
Vital Signs
Temp Pulse Resp BP Pulse Ox
98 F 68 25 165/69 95
06/10/24 07:03 06/10/24 09:04 06/10/24 09:04 06/10/24 09:04 06/10/24 08:51
I&O
06/09/24 06/10/24 06/11/24
06:59 06:59 06:59
Intake Total 5487.4 / 5645.7 4097.0 / 4238.7 671.8 / 671.8
Output Total 1560 / 1660 2358 / 2533 475 / 475
Balance 3927.4 / 3985.7 1739.0 / 1705.7 196.8 / 196.8
[2024-06-10 11:07] LABS: Urine Albumin 2+ (Neg - Trace); Urine Bilirubin Negative (Negative); Urine Character Cloudy (Clear); Urine Color Yellow; Urine Glucose 2+ (Negative); Urine Ketone Negative (Negative); Urine Leukocyte Negative (Negative); Urine Nitrite Negative (Negative); Urine Occult Blood 4+ (Negative); Urine Specific Gravity 1.015 (<1.030); Urine Urobilinogen Negative (Neg - 1+)
[2024-06-10] MEDS: MYCAMINE 105 MG IV (11:14)
--- NOTE | 2024-06-10 11:35 | PTCARENOTE ---
Back to bed @ 1045. Mod assist x 2 and rolling walker required. Seen by [facility] RN Kamala Tai. Abdoulaye met w/ pt's dtr and reviewed ostomy care. Appliance changed. Mid abdominal aquacell drsg removed by Abdoulaye after approval rec'd from
surgical team. Dry 4x4's applied. Tx to tele per when bed available. UA sent per . Call booth in reach.
[2024-06-10 11:55] LABS: Urine Squamous Cell 16-20 /LPF (Few)
[2024-06-10 11:56] LABS: Urine Amorphous Seen; Urine Granular Cast >15 /LPF (0)
[2024-06-10 11:58] LABS: Urine Red Blood Cell >100 /HPF (0-2); Urine White Cell 0-2 /HPF (0-5)
--- NOTE | 2024-06-10 12:43 | WOUNDNOTE ---
[facility] RN note: t/c Lizy from [place] and ordered a [employer] ostomy secure starter kit for patient. Daughter had given verbal permission to order the kit.
--- NOTE | 2024-06-10 12:44 | CM ---
Reviewed notes and patient's progress in therapy. He will need rehab prior to discharge. Per last CM note, Acute at [place] v[facility] SNF at [facility].
Plan: Case management will continue to follow and assist with discharge planning. Skilled vrs. Acute.
--- NOTE | 2024-06-10 13:46 | PTCARENOTE ---
Ultrasound being done at bedside.
[2024-06-10] MEDS: HEPARIN 5000 UNITS SC ×2 (15:40→23:36)
--- NOTE | 2024-06-10 20:30 | PTCARENOTE ---
assumed care, Ox3, c/o 12/28 abd pain refer to MAR, drowsy arouses verbally, sinus on the monitor, B/L scds and teds, weak pulses, RA 97%, diminished, L [place] 60cm continuous suction per order, brown output, BSx4 hypoactive, colostomy serous output,
cruz yellow output, wounds per worklist, R PRINCE, R DL PICC, Amio gtt, call booth within reach, pt able to make needs known, otherwise refer to documentation.
[2024-06-11] VITALS (23 sets, daily range): BP systolic 139–170; BP diastolic 66–106; PULSE 75; O2SAT 94; BMI 25.6
[2024-06-11] MEDS: ZOSYN 50 IV ×4 (03:05→19:19)
[2024-06-11] MEDS: DILAUDID 0.5 MG IV ×4 (03:05→23:20)
[2024-06-11 03:27] LABS: Hematocrit 28.8 % (37.0-47.0); Hemoglobin 10.4 g/dL (12.0-16.0); Mean Corp Hgb Conc. 36.1 g/dL (33.0-37.0); Mean Corpuscular Hgb 31.6 pg (27.0-31.0); Mean Corpuscular Volume 87.5 fL (81.0-99.0); Mean Platelet Volume 10.5 fL (7.4-10.4); Platelet Count 172 10^3/uL (130-400); Red Blood Cell Count 3.29 10^6/uL (4.20-5.40); Red Cell Dist. Width 13.2 % (11.5-14.5); White Blood Cell Count 26.3 10^3/uL (4.8-10.8)
[2024-06-11 03:41] LABS: ALT (SGPT) 40 U/L (0-35); AST (SGOT) 49 U/L (14-36); Albumin 1.9 g/dl (3.5-5.0); Alkaline Phosphatase 185 U/L (38-126); Blood Urea Nitrogen 61 mg/dl (7-17); Calcium 7.7 mg/dl (8.4-10.2); Carbon Dioxide 24 mmol/L (22-30); Chloride 103 mmol/L (98-107); Estimated Creatinine Clearance 23 ml/min; Glucose 138 mg/dl (70-99); Magnesium 2.5 mg/dl (1.6-2.3); Phosphorus 4.1 mg/dl (2.5-4.5); Potassium 3.2 mmol/L (3.5-5.1); Sodium 136 mmol/L (135-145); Total Bilirubin 1.6 mg/dl (0.2-1.3); Total Protein 4.5 g/dl (6.3-8.2)
[2024-06-11] MEDS: KCL 270 MEQ IV ×2 (04:48→11:17)
[2024-06-11] MEDS: ZOFRAN 4 MG IV ×2 (04:56→19:19)
[2024-06-11] MEDS: CORDARONE 518 MG IV (05:43)
[2024-06-11] MEDS: HEPARIN 5000 UNITS SC ×3 (07:57→23:20)
--- NOTE | 2024-06-11 08:03 | W.PN.HOSP.TC ---
Today's Communication/Plan
-
see bold
Assessment / Plan
Assessment / Plan
Gen: NAD, NCAT
CV: RRR, +S1/S2, no m/r/g.
Resp: CTAB anteriorly, no rales, wheezes, or rhonchi.
Abd: Abdomen is mildly distended, + bowel sounds. NT to light palpation
Skin: No rashes.
Psych: calm
06/09/24 15:02 Blood/Venous Blood Culture - Preliminary
No Growth in 24 hours- Final report to follow
06/07/24 10:26 Blood/Venous Blood Culture - Preliminary
Bacteroides uniformis
06/07/24 10:26 Blood/Venous Gram Stain - Preliminary
06/07/24 10:27 Blood/Venous Blood Culture - Preliminary
Bacteroides uniformis
06/07/24 10:27 Blood/Venous Gram Stain - Preliminary
06/09/24 12:09 Blood/Venous Blood Culture - Preliminary
No Growth in 24 hours- Final report to follow
06/07/24 23:30 Nose MRSA Screen - Final
No Methicillin Resistant Staphylococcus aureus isolated.
06/07/24 10:27 Urine Urine Culture - Final
No Significant Growth
06/07/24 09:19 Nasal Swab Influenza Types A & B (EVI) - Final
Negative for Influenza A & B, NAAT
Negative results must be combined with clinical observations
and patient history.
Nucleic Acid Amplification test (NAAT)performed on the
[employer] NOW platform.
CT A/P (06/07/24, admission): New findings suggesting perforated bowel probable sigmoid colon with associated retroperitoneal and intraperitoneal free air, air-fluid levels suggesting abscess formation and extraluminal stool. Mild small bowel
dilatation probably ileus due to reactive change. New. Tiny bilateral pleural effusions. New. Too small to characterize hypodense left renal lesion likely a benign cyst. Mild lingular bronchiectasis. Stable. This case was discussed with
uJ on 06/07/2024 at 12:50 PM. Critical value: Free air.
CT A/P 06/08/24: s/p sigmoidectomy with colostomy in the left anterior abdominal wall. Colonic caliber is collapsed. Small bowel loops are somewhat poorly defined because of surrounding fluid and lack of GI luminal contrast within small bowel loops.
Small bowel loops appear to be mildly dilated and contains fluid and air, most likely an adynamic ileus. Residual free intraperitoneal air and left retroperitoneal air, decreased from previous examination. There is fluid present within the abdomen
and upper pelvis, left slightly greater than right, surrounding small bowel loops. No evidence for a focal drainable fluid collection at this time. Residual contrast within the kidneys, which likely represents decreased renal function and possible
ATN. Vicarious excretion of contrast into the gallbladder.
B/L LE U/S: No sonographic evidence for lower extremity venous thrombosis.
Septic shock due to acute sigmoid bowel perforation:
-s/p IVF resuscitation on admission
-s/p Exploratory laparotomy, lysis of adhesions, sigmoidectomy, creation of end-colostomy on 06/07/24
-was on Levophed for septic shock (likely POA) due to bowel perforation, stopped at 0400 on 06/08/24
-extubated 06/08/24AM
-cont Zosyn/Micafungin as per ID
-Cx data above. BCxs 06/07/24 with Bacteroides
-Hb drop likely dilutional as well as due to acute blood loss anemia due to surgery. Current Hb stable/improving.
Afib with RVR:
-was on cardizem gtt, now on Amio gtt (pt has converted to SR but cont amio gtt until pt can take meds enterally)
-Therapeutic AC once OK with surgery (currently with acute blood loss anemia due to surgery)
LONG:
-likely due to ATN
-with non-AG met acidosis
-was on bicarb infusion, now on D5NS
-renal following
Other problems:
Hypokalemia: IV K
Hyponatremia, resolved
Essential HTN: Holding home Norvasc with septic shock
R hip BARR[place] on 05/30/24: ortho following
Mild cognitive impairment
Interstitial lung disease with bronchiectasis
h/o spontaneous PTX
FULL/Heparin/Tele
Anticipated Discharge: > 48 hours
Subjective/Interval History
-
Date of Service: June 11, 2024
Patient resting comfortably.
Objective Data
-
Labs:
Laboratory Results
06/11/24
03:12
WBC 26.3 H
Hgb 10.4 L
Hct 28.8 L
Plt Count 172
Sodium 136
Potassium 3.2 L
Chloride 103
Carbon Dioxide 24
BUN 61 H
Creatinine 2.0 H
Glucose 138 H
Calcium 7.7 L
Total Bilirubin 1.6 H
AST 49 H
ALT 40 H
Alkaline Phosphatase 185 H
Vital Signs:
Vital Signs
Temp Pulse Resp BP Pulse Ox
97.7 F 71 19 159/76 93
06/11/24 07:11 06/11/24 06:00 06/11/24 06:00 06/11/24 06:00 06/11/24 06:00
I&O
06/10/24 06/11/24 06/12/24
06:59 06:59 06:59
Intake Total 4097.0 / 4238.7 2522.9 / 2522.9
Output Total 2358 / 2533 3065 / 3065
Balance 1739.0 / 1705.7 -542.1 / -542.1
--- NOTE | 2024-06-11 09:58 | W.PN.ID1 ---
Date of Service
Date of Service: June 11, 2024
Today's Communication
- c/w with zosyn
- c/w micafungin
Assessment / Plan
Bowel Perforation likely due to Stercoral colitis
GNR Bacteremia due to bowel perforation
S/p Exploratory laparotomy, lysis of adhesions, sigmoidectomy, creation of end-colostomy
LONG
Recent right hip replacement
- slight improvement in leukocytosis noted
- repeat blood cultures x2 no growth to date
- 06/07 blood cultures both with anaerobe - bacteroides - source bowel perforation
- c/w with zosyn
- c/w micafungin
- has PICC, management per primary team
follow clinically
Chief Complaint
-: Other (bowel perforation, secondary peritonitis)
Subjective / Review of Systems
intermittent mild hypothermia ongoing
bp stable
tolerating current therapies
Vital Signs / Physical Exam
Vital Signs
Vital Signs
Temp Pulse Resp BP Pulse Ox
97.7 F 75 16 166/87 96
06/11/24 07:11 06/11/24 09:00 06/11/24 09:00 06/11/24 09:00 06/11/24 09:00
Physical Exam
Constitutional: Acutely Ill and Chronically Ill
Cardiovascular: Regular Rate and S1/S2; Negative Murmur or Rub
Pulmonary: Clear and Symmetric; Negative Wheezes or Rales
Gastrointestinal: Soft, Non Tender, Non Distended, Normal Bowel Sounds and Other (stoma pink)
Skin: Warm and Dry; Negative Rash or Jaundice
Neurological: Negative Awake (sleeping and not disturbed)
Objective Data
Lab Data
Lab Results
06/11/24 03:12
06/11/24 03:12
PT 14.6 Sec (11.4-14.6) 06/07/24 14:37
INR 1.11 06/07/24 14:37
APTT 27.5 Sec (23.4-35.0) 06/07/24 14:37
Estimated Creat Clear 23 ml/min 06/11/24 03:12
Lactic Acid 1.9 mmol/L (0.7-2.0) 06/10/24 03:33
Total Bilirubin 1.6 mg/dl (0.2-1.3) H 06/11/24 03:12
AST 49 U/L (14-36) H 06/11/24 03:12
ALT 40 U/L (0-35) H 06/11/24 03:12
Alkaline Phosphatase 185 U/L (38-126) H 06/11/24 03:12
Most recent labs reviewed.
Micro Results:
06/09/24 15:02 Blood Culture - Preliminary
Blood/Venous No Growth in 24 hours- Final report to follow
06/07/24 10:26 Blood Culture - Preliminary
Blood/Venous Bacteroides uniformis
Gram Stain - Preliminary
06/07/24 10:27 Blood Culture - Preliminary
Blood/Venous Bacteroides uniformis
Gram Stain - Preliminary
06/09/24 12:09 Blood Culture - Preliminary
Blood/Venous No Growth in 24 hours- Final report to follow
06/07/24 23:30 MRSA Screen - Final
Nose No Methicillin Resistant Staphylococcus aureus isolated.
06/07/24 10:27 Urine Culture - Final
Urine No Significant Growth
06/07/24 09:19 Influenza Types A & B (EVI) - Final
Nasal Swab Negative for Influenza A & B, NAAT
Negative results must be combined with clinical observations
and patient history.
Nucleic Acid Amplification test (NAAT)performed on the
[employer] platform.
[2024-06-11] MEDS: MYCAMINE 105 MG IV (10:09)
[2024-06-11] MEDS: D5/0.9% SODIUM CHLORIDE 1000 IV (10:09)
--- NOTE | 2024-06-11 10:18 | W.PN.NEPH.PH ---
Today's Communication / Plan
-
K
Assessment/Plan
-
79-year-old female with PMH of HTN, HLD, interstitial lung disease with bronchiectasis, history of pneumonia multiple times, history of spontaneous pneumothorax x 2 who presents 8 days after right hip replacement;
Presents with� Colonic perforation s/p right hip replacement; status post colectomy with ostomy
Baseline creatinine 0.8 with admitting creatinine 1.5.
Impression.
Acute kidney injury in the setting of sepsis and hemodynamic.
Bowel perforation status post sigmoidectomy.
Hyponatremia.
Hypertension.
Status post total hip replacement May 30, 2024.
Interstitial lung disease..
Plan.
follow BMP
continue IVF
follow UOP
NGT per surgery
additional K today
-
-
Date of Service: June 11, 2024
CC / HPI / ROS
-
Chief Complaint:
Abdominal pain
History of Present Illness:
Acute kidney injury secondary to sepsis and perforated viscus.
LONG/Cr stable 2.0
BP stable
Na up to 136
K low 3.[address]
excellent UOP
Review of Systems:
no CP/SOB
Labs
-
Labs:
WBC 26.3 10^3/uL (4.8-10.8) H 06/11/24 03:12
RBC 3.29 10^6/uL (4.20-5.40) L 06/11/24 03:12
Hgb 10.4 g/dL (12.0-16.0) L 06/11/24 03:12
Hct 28.8 % (37.0-47.0) L 06/11/24 03:12
Plt Count 172 10^3/uL (130-400) 06/11/24 03:12
Sodium 136 mmol/L (135-145) 06/11/24 03:12
Potassium 3.2 mmol/L (3.5-5.1) L 06/11/24 03:12
Chloride 103 mmol/L (98-107) 06/11/24 03:12
Carbon Dioxide 24 mmol/L (22-30) 06/11/24 03:12
BUN 61 mg/dl (7-17) H 06/11/24 03:12
Creatinine 2.0 mg/dL (0.6-1.0) H 06/11/24 03:12
eGFR 25.10 06/11/24 03:12
Glucose 138 mg/dl (70-99) H 06/11/24 03:12
Calcium 7.7 mg/dl (8.4-10.2) L 06/11/24 03:12
Phosphorus 4.1 mg/dl (2.5-4.5) 06/11/24 03:12
Albumin 1.9 g/dl (3.5-5.0) L 06/11/24 03:12
Physical Exam
-
Vital Signs:
Vital Signs
Temp Pulse Resp BP Pulse Ox
97.7 F 75 25 165/83 96
06/11/24 07:11 06/11/24 10:00 06/11/24 10:00 06/11/24 10:00 06/11/24 10:00
Cardiovascular:: Regular rate and rhythm
Respiratory:: Bilateral: Coarse
Lung Excursion:: Normal
Abdomen:: Nontender and Soft
Bowel Sounds:: None
Extremity Edema:: +1: Bilateral:
--- NOTE | 2024-06-11 11:59 | W.PN.UPDATE ---
Update Note
Progress Note Update
79F s/p R BARRINGTON 05/21/[address] Lyon with postop bowel perforation s/p exploratory laparotomy, lysis of adhesions, sigmoidectomy, creation of end-colostomy with Dr. Moreno 06/07/2024. Resting comfortably on my arrival. Quite somnolent and not
able to follow full commands appropriately.
Right incision not well visualized based on patient positioning. Mild diffuse swelling. Logroll without pain. Calf is soft and nontender. Distal neurovascular was intact. Able to wiggle toes and dorsi/plantar flex ankle without difficulty.
Appreciate medical team's input for patient. Continue with formal physical therapy as medically able, posterior hip precautions x6 weeks. DVT ppx per primary; enrique removal 2 weeks postop.
--- NOTE | 2024-06-11 12:18 | PTCARENOTE ---
Middle abdominal dressing removed by Dr. Arizmendi. Midline incision with opens areas with morenita in place, wound malodorous. New dressing applied. Pt repositioned. Frequent mouth care performed.
--- NOTE | 2024-06-11 12:38 | W.PN.CD ---
Today's Communication / Plan
-
cont amio
Impression / Plan
-
A/P: 79-year-old woman with history of hypertension, hypercholesterolemia, interstitial lung disease, bronchiectasis, history of spontaneous pneumothorax who underwent right hip replacement 1 week ago and then presented to [facility] with
bowel perforation requiring emergent laparotomy with colectomy and colostomy. She had paroxysms of AF currently in SR.
A-fib with RVR
-New diagnosis
-CHADSVASC 4 (age greater than 75, female, hypertension)
-Occurred in the postoperative setting after emergent laparotomy and patient on pressors.
-Now back in sinus rhythm
-Off pressors.
-Start low-dose beta-norma when blood pressure will allow. Currently systolics in the 90s so would hold off with additional beta-norma until blood pressures improved.
-echo
-Patient is now off pressors which may decrease likelihood of atrial fibrillation but there is still a significant likelihood that she could develop recurrent A-fib.
-Short duration amiodarone, hopeful to start metoprolol soon once able to take meds enterally
- she currently is NPO
.
LONG. Creatinine 2.0. Monitor volume status closely
-Optimize hemodynamics
-Monitor I's and O's and labs
-Nephrology consulted
.
Postop emergent laparotomy/colectomy for bowel perforation.
-Management directed by colorectal surgery
.
Pulmonary. Patient with a history of pulmonary disease/interstitial lung disease/bronchiectasis and prior history of pneumothorax. Management directed by pulmonary/critical care
.
Hypertension. History of hypertension. Patient currently having issues with hypotension. Will continue to monitor as patient recovers
Hip right hip replacement 1 week ago.
Subjective: tired this am
Physical Exam
Vital Signs/Labs
Vital Signs
Temp Pulse Resp BP Pulse Ox
98.3 F 75 25 165/83 96
06/11/24 11:20 06/11/24 10:00 06/11/24 10:00 06/11/24 10:00 06/11/24 10:00
06/10/24 06/11/24 06/12/24
06:59 06:59 06:59
Actual Weight 167 lb 15.876 oz 168 lb 6.931 oz
06/11/24 03:12
06/11/24 03:12
PT 14.6 Sec (11.4-14.6) 06/07/24 14:37
INR 1.11 06/07/24 14:37
APTT 27.5 Sec (23.4-35.0) 06/07/24 14:37
Magnesium 2.5 mg/dl (1.6-2.3) H 06/11/24 03:12
Physical Exam
Constitutional: No acute distress
EENT: Anicteric
Cardiovascular: Rhythm & rate is regular
Respiratory: Respiratory effort normal
GI: Abdomen is tender
Neuro/Psych: Alert and Oriented
Data Reviewed
-
Date of Service: June 11, 2024
Medical Decision Making: Reviewed Test Results
EKG: Tracing Personally Visualized and interpreted (sr)
Labs: Labs Reviewed by me
--- NOTE | 2024-06-11 13:01 | W.PN.CRS1 ---
Today's Communication / Plan
-
Continue care.
Assessment/Plan
-
POD 4.
1. significant leukocytosis persisting. Not on pressors. Antibiotics per ID. At elevated risk for postop abscess. May need repeat imaging early next week depending on circumstances.
2. intermittent hypothermia.
3. await bowel function. Stoma viable.
4. appreciate help of other consultants.
5. patient's daughter updated by me today via phone.
Subjective Data
Procedure
Exploratory laparotomy, lysis of his adhesions, sigmoidectomy, creation of end colostomy on 06/07/24
Subjective Data
Date of Service: June 11, 2024
Disoriented--'I'm exercising my tongue'; per nursing has received Dilaudid.
Objective Data
-
Vital Signs
Temp Pulse Resp BP Pulse Ox
98.3 F 75 25 165/83 96
06/11/24 11:20 06/11/24 10:00 06/11/24 10:00 06/11/24 10:00 06/11/24 10:00
Intake & Output
06/10/24 06/11/24 06/12/24
06:59 06:59 06:59
Intake Total 4097.0 / 4238.7 2522.9 / 2609.6 720.2 / 720.2
Output Total 2358 / 2533 3065 / 3065
Balance 1739.0 / 1705.7 -542.1 / -455.4 720.2 / 720.2
Intake:
Oral fluids 50 / 50
IV fluids (Total) 3517.0 / 3658.7 2382.9 / 2469.6 585.2 / 585.2
Amio Gtt 517.0 / 533.7 400.4 / 417.1 100.2 / 100.2
D5/0.9% Sodium Chloride 1,000 3000 / 3125 515 / 515
ml @ 125 mls/hr IV .Q8H LINDA Rx#
:[id number]
D5/0.9% Sodium Chloride 1,000 1400 / 1470 350 / 350
ml @ 70 mls/hr IV .[id number] LINDA
Rx#:[id number]
K 67.5 / 67.5 135.0 / 135.0
IV piggybacks 350 / 350 50 / 50 105 / 105
Amount instilled into GI Tube ( 180 / 180 90 / 90 30 / 30
Total)
Yellow Medicine Sump 180 / 180 90 / 90 30 / 30
Output:
Drain Output (Total)
Right Lower Abdomen Darius-
[place]
Gastrointestinal tube output ( 325 / 325 350 / 350
Total)
Yellow Medicine Sump 325 / 325 350 / 350
Urine, Ramon 2014 2700 / 270
Lab Results
06/11/24 03:12
06/11/24 03:12
Physical Exam
-
General: Other (disoriented)
Chest: Decreased Breath Sounds (at bases)
Cardiovascular: Regular Rate & Rhythm
Abdomen: Distended (mild), Tender (incisional) and Other (stoma viable without output; PRINCE with ss output)
Incision: No Skin Erythema and Other (dressings changed; morenita left in place)
--- NOTE | 2024-06-11 15:01 | PTCARENOTE ---
Pt more alert, physical therapy in to work with pt. Pt OOB to chair with assist of 2 and rolling walker.
--- NOTE | 2024-06-11 20:00 | PTCARENOTE ---
assumed care, Ox3, c/o 11/27 abd pain refer to MAR, drowsy arouses verbally, sinus on the monitor, B/L scds and teds, +2 upper and lower extremities, weak pulses, RA 93%, diminished, L [place] 60cm continuous suction per order, brown green output, BSx4
hypoactive, colostomy serous output pink and budded, cruz yellow output c sediment, wounds per worklist, R PRINCE serosanguineous output, R DL PICC, Amio gtt and D5NS, call booth within reach, pt able to make needs known, otherwise refer to
documentation.
[2024-06-11] MEDS: PEPCID 20 MG IV (23:18)
[2024-06-11] MEDS: NSS (PRESERVATIVE FREE) 8 ML IV (23:18)
[2024-06-12] VITALS (9 sets, daily range): BP systolic 151–165; BP diastolic 69–88; PULSE 70; O2SAT 96; BMI 25.2
[2024-06-12] MEDS: ZOSYN 50 IV ×4 (02:32→19:25)
[2024-06-12] MEDS: D5/0.9% SODIUM CHLORIDE 1000 IV ×2 (02:32→18:10)
[2024-06-12 04:25] LABS: Hematocrit 29.3 % (37.0-47.0); Hemoglobin 10.2 g/dL (12.0-16.0); Mean Corp Hgb Conc. 34.8 g/dL (33.0-37.0); Mean Corpuscular Volume 89.1 fL (81.0-99.0); Mean Platelet Volume 10.4 fL (7.4-10.4); Platelet Count 177 10^3/uL (130-400); Red Blood Cell Count 3.29 10^6/uL (4.20-5.40); Red Cell Dist. Width 13.2 % (11.5-14.5); White Blood Cell Count 19.1 10^3/uL (4.8-10.8)
[2024-06-12 04:55] LABS: ALT (SGPT) 43 U/L (0-35); AST (SGOT) 44 U/L (14-36); Alkaline Phosphatase 223 U/L (38-126); Blood Urea Nitrogen 53 mg/dl (7-17); Calcium 7.6 mg/dl (8.4-10.2); Carbon Dioxide 24 mmol/L (22-30); Chloride 106 mmol/L (98-107); Estimated Creatinine Clearance 29 ml/min; Glucose 175 mg/dl (70-99); Magnesium 2.3 mg/dl (1.6-2.3); Phosphorus 3.1 mg/dl (2.5-4.5); Sodium 140 mmol/L (135-145); Total Bilirubin 1.4 mg/dl (0.2-1.3); Total Protein 4.7 g/dl (6.3-8.2); eGFR 32.81
[2024-06-12] MEDS: KCL 270 MEQ IV ×3 (05:45→13:22)
[2024-06-12] MEDS: HEPARIN 5000 UNITS SC ×2 (07:34→15:33)
--- NOTE | 2024-06-12 09:31 | W.PN.UPDATE ---
Update Note
Progress Note Update
79F s/p R BARR[place] 05/30/[address] Lyon with postop bowel perforation s/p exploratory laparotomy, lysis of adhesions, sigmoidectomy, creation of end-colostomy with Dr. Moreno 06/07/2024. Resting comfortably on my arrival. Much more coherent and
able to answer questions. States she has been getting up with PT, but reports more abdominal pain than hip pain. Discouraged with her current situation.
Right incision with enrique approximating incision, which is healing well. Mild diffuse swelling and minimal ecchymosis about incision only. Logroll without pain. Gentle ROM hip without pain. Calf is soft and nontender (u/s RLE 06/10 negative for
DVT). Distal neurovascular was intact. Able to wiggle toes and dorsi/plantar flex ankle without difficulty.
Appreciate medical team's input for patient. WBC count decreased from yesterday. Appreciate ID recommendations for IV ancef and micafungin. Continue with formal physical therapy as medically able, posterior hip precautions x6 weeks. DVT ppx per
primary; enrique removal 2 weeks postop, which may be done on rounds tomorrow.
--- NOTE | 2024-06-12 09:34 | W.PN.CD ---
Today's Communication / Plan
-
cont amio gtt
Impression / Plan
-
A/P: 79-year-old woman with history of hypertension, hypercholesterolemia, interstitial lung disease, bronchiectasis, history of spontaneous pneumothorax who underwent right hip replacement 1 week ago and then presented to [facility] with
bowel perforation requiring emergent laparotomy with colectomy and colostomy. She had paroxysms of AF currently in SR.
A-fib with RVR now in SR
-New diagnosis
-CHADSVASC 4 (age greater than 75, female, hypertension)
-Occurred in the postoperative setting after emergent laparotomy and patient on pressors.
-Off pressors.
-Start low-dose beta-norma when blood pressure will allow.
-Patient is now off pressors which may decrease likelihood of atrial fibrillation but there is still a significant likelihood that she could develop recurrent A-fib.
-Short duration amiodarone, hopeful to start metoprolol soon once able to take meds enterally
- she currently is NPO
.
LONG. Creatinine 1.6.
-Nephrology consulted
.
Postop emergent laparotomy/colectomy for bowel perforation.
-Management directed by colorectal surgery
.
Pulmonary. Patient with a history of pulmonary disease/interstitial lung disease/bronchiectasis and prior history of pneumothorax. Management directed by pulmonary/critical care
.
Hypertension. History of hypertension. Patient currently having issues with hypotension. Will continue to monitor as patient recovers
Hip right hip replacement 1 week ago.
Subjective: remains confused
echo:
CONCLUSIONS
Normal biventricular size and systolic function without regional wall motion
abnormality.
Mild to moderate mitral regurgitation.
Pleural effusion present.
No prior study available for comparison.
Physical Exam
Vital Signs/Labs
Vital Signs
Temp Pulse Resp BP Pulse Ox
97.8 F 81 25 165/81 93
06/12/24 07:38 06/12/24 08:00 06/12/24 08:00 06/12/24 08:00 06/12/24 08:00
06/11/24 06/12/24 06/13/24
06:59 06:59 06:59
Actual Weight 168 lb 6.931 oz 166 lb 0.129 oz
06/12/24 04:04
06/12/24 04:04
PT 14.6 Sec (11.4-14.6) 06/07/24 14:37
INR 1.11 06/07/24 14:37
APTT 27.5 Sec (23.4-35.0) 06/07/24 14:37
Magnesium 2.3 mg/dl (1.6-2.3) 06/12/24 04:04
Physical Exam
Constitutional: Confusion
EENT: Anicteric
Cardiovascular: Rhythm & rate is regular and Pedal edema is absent
Respiratory: Respiratory effort normal
GI: Soft
Neuro/Psych: Alert and Oriented (to person )
Data Reviewed
-
Date of Service: June 12, 2024
EKG: Tracing Personally Visualized and interpreted (sr)
Echo: Report Reviewed by me
Labs: Labs Reviewed by me
--- NOTE | 2024-06-12 09:39 | W.PN.NEPH.PH ---
Today's Communication / Plan
-
K
Assessment/Plan
-
79-year-old female with PMH of HTN, HLD, interstitial lung disease with bronchiectasis, history of pneumonia multiple times, history of spontaneous pneumothorax x 2 who presents 8 days after right hip replacement;
Presents with� Colonic perforation s/p right hip replacement; status post colectomy with ostomy
Baseline creatinine 0.8 with admitting creatinine 1.5.
Impression.
Acute kidney injury in the setting of sepsis and hemodynamic.
Bowel perforation status post sigmoidectomy.
Hyponatremia.
Hypertension.
Status post total hip replacement May 30, 2024.
Interstitial lung disease..
Plan.
follow BMP
continue IVF increase rate
follow UOP
NGT per surgery
additional K
-
-
Date of Service: June 12, 2024
CC / HPI / ROS
-
Chief Complaint:
Abdominal pain
History of Present Illness:
Acute kidney injury secondary to sepsis and perforated viscus.
LONG/Cr stable 1.6
BP stable
Na up to 140
K low 3.[address]
nonoliguric
Review of Systems:
no CP/SOB
Labs
-
Labs:
WBC 19.1 10^3/uL (4.8-10.8) H 06/12/24 04:04
RBC 3.29 10^6/uL (4.20-5.40) L 06/12/24 04:04
Hgb 10.2 g/dL (12.0-16.0) L 06/12/24 04:04
Hct 29.3 % (37.0-47.0) L 06/12/24 04:04
Plt Count 177 10^3/uL (130-400) 06/12/24 04:04
eGFR 32.81 06/12/24 04:04
Phosphorus 3.1 mg/dl (2.5-4.5) 06/12/24 04:04
Albumin 2.0 g/dl (3.5-5.0) L 06/12/24 04:04
Physical Exam
-
Vital Signs:
Vital Signs
Temp Pulse Resp BP Pulse Ox
97.8 F 81 25 165/81 93
06/12/24 07:38 06/12/24 08:00 06/12/24 08:00 06/12/24 08:00 06/12/24 08:00
Cardiovascular:: Regular rate and rhythm
Respiratory:: Bilateral: Coarse
Lung Excursion:: Normal
Abdomen:: Nontender and Soft
Bowel Sounds:: None
Extremity Edema:: None: Bilateral:
--- NOTE | 2024-06-12 09:48 | W.PN.HOSP.TC ---
Today's Communication/Plan
-
see bold
Assessment / Plan
Assessment / Plan
Gen: NAD, Awake and alert
Neck: supple.
CV: RRR, +S1/S2, no m/r/g.
Resp: CTAB anteriorly, no rales, wheezes, or rhonchi.
Abd: very hypoactive BS, soft, tenderness to light palpation, ND
Skin: No rashes.
Neuro: CN 2-12 intact, non-focal.
Psych: Normal mood and affect.
06/09/24 15:02 Blood/Venous Blood Culture - Preliminary
No Growth in 48 hours- Final report to follow
06/09/24 12:09 Blood/Venous Blood Culture - Preliminary
No Growth in 48 hours- Final report to follow
06/07/24 10:26 Blood/Venous Blood Culture - Preliminary
Bacteroides uniformis
06/07/24 10:26 Blood/Venous Gram Stain - Preliminary
06/07/24 10:27 Blood/Venous Blood Culture - Preliminary
Bacteroides uniformis
06/07/24 10:27 Blood/Venous Gram Stain - Preliminary
06/07/24 23:30 Nose MRSA Screen - Final
No Methicillin Resistant Staphylococcus aureus isolated.
06/07/24 10:27 Urine Urine Culture - Final
No Significant Growth
06/07/24 09:19 Nasal Swab Influenza Types A & B (EVI) - Final
Negative for Influenza A & B, NAAT
Negative results must be combined with clinical observations
and patient history.
Nucleic Acid Amplification test (NAAT)performed on the
[employer] platform.
CT A/P (06/07/24, admission): New findings suggesting perforated bowel probable sigmoid colon with associated retroperitoneal and intraperitoneal free air, air-fluid levels suggesting abscess formation and extraluminal stool. Mild small bowel
dilatation probably ileus due to reactive change. New. Tiny bilateral pleural effusions. New. Too small to characterize hypodense left renal lesion likely a benign cyst. Mild lingular bronchiectasis. Stable. This case was discussed with .
Ju on 06/07/2024 at 12:50 PM. Critical value: Free air.
CT A/P 06/08/24: s/p sigmoidectomy with colostomy in the left anterior abdominal wall. Colonic caliber is collapsed. Small bowel loops are somewhat poorly defined because of surrounding fluid and lack of GI luminal contrast within small bowel loops.
Small bowel loops appear to be mildly dilated and contains fluid and air, most likely an adynamic ileus. Residual free intraperitoneal air and left retroperitoneal air, decreased from previous examination. There is fluid present within the abdomen
and upper pelvis, left slightly greater than right, surrounding small bowel loops. No evidence for a focal drainable fluid collection at this time. Residual contrast within the kidneys, which likely represents decreased renal function and possible
ATN. Vicarious excretion of contrast into the gallbladder.
B/L LE U/S: No sonographic evidence for lower extremity venous thrombosis.
Septic shock due to acute sigmoid bowel perforation:
-s/p IVF resuscitation on admission
-s/p Exploratory laparotomy, lysis of adhesions, sigmoidectomy, creation of end-colostomy on 06/07/24
-was on Levophed for septic shock (likely POA) due to bowel perforation, stopped at 0400 on 06/08/24
-extubated 06/08/24AM
-cont Zosyn/Micafungin as per ID
-Cx data above. BCxs 06/07/24 with Bacteroides
-Hb drop likely dilutional as well as due to acute blood loss anemia due to surgery. Current Hb stable/improving.
Afib with RVR:
-was on cardizem gtt, now on Amio gtt (pt has converted to SR but cont amio gtt until pt can take meds enterally)
-Therapeutic AC once OK with surgery (currently with acute blood loss anemia due to surgery)
LONG:
-likely due to ATN
-with non-AG met acidosis, now resolved
-was on bicarb infusion, now on D5NS
-Cr improving, now 1.6
-renal following
Other problems:
Hypokalemia: s/p IV K
Hyponatremia, resolved
Essential HTN: Holding home Norvasc with septic shock
R hip BARRINGTON on 05/30/24: ortho following
Mild cognitive impairment
Interstitial lung disease with bronchiectasis
h/o spontaneous PTX
FULL/Heparin/Tele
Anticipated Discharge: > 48 hours
Subjective/Interval History
-
Date of Service: June 12, 2024
c/o abd pain. No ostomy output as per nursing.
Objective Data
-
Labs:
Laboratory Results
06/12/24 06/12/24
04:04 18:00
WBC 19.1 H
Hgb 10.2 L
Hct 29.3 L
Plt Count 177
Sodium 140 Pending
Potassium 3.0 L Pending
Chloride 106 Pending
Carbon Dioxide 24 Pending
BUN 53 H Pending
Creatinine 1.6 H Pending
Glucose 175 H Pending
Calcium 7.6 L Pending
Total Bilirubin 1.4 H
AST 44 H
ALT 43 H
Alkaline Phosphatase 223 H
Vital Signs:
Vital Signs
Temp Pulse Resp BP Pulse Ox
97.8 F 81 25 165/81 93
06/12/24 07:38 06/12/24 08:00 06/12/24 08:00 06/12/24 08:00 06/12/24 08:00
I&O
06/11/24 06/12/24 06/13/24
06:59 06:59 06:59
Intake Total 2522.9 / 2609.6 2652.5 / 2739.2 173.4 / 173.4
Output Total 3065 / 3065 3465 / 3465
Balance -542.1 / -455.4 -812.5 / -725.8 173.4 / 173.4
[2024-06-12] MEDS: MYCAMINE 105 MG IV (09:50)
--- NOTE | 2024-06-12 10:18 | W.PN.ID1 ---
Date of Service
Date of Service: June 12, 2024
Today's Communication
- improvement in leukocytosis noted
- repeat blood cultures x2 no growth to date
- 06/07 blood cultures both with anaerobe - bacteroides - source bowel perforation
- c/w with zosyn
- c/w micafungin
- agree with possible repeat CT scan pending course
Assessment / Plan
Bowel Perforation likely due to Stercoral colitis
GNR Bacteremia due to bowel perforation
S/p Exploratory laparotomy, lysis of adhesions, sigmoidectomy, creation of end-colostomy
Ileus
LONG
Recent right hip replacement
- improvement in leukocytosis noted
- repeat blood cultures x2 no growth to date
- 06/07 blood cultures both with anaerobe - bacteroides - source bowel perforation
- c/w with zosyn
- c/w micafungin
- agree with possible repeat CT scan pending course
- has PICC, management per primary team
follow clinically
Chief Complaint
-: Other (bowel perforation, secondary peritonitis)
Subjective / Review of Systems
afebrile
bp stable to hypertensive
complaining of nausea today
Vital Signs / Physical Exam
Vital Signs
Vital Signs
Temp Pulse Resp BP Pulse Ox
97.8 F 81 25 165/81 93
06/12/24 07:38 06/12/24 08:00 06/12/24 08:00 06/12/24 08:00 06/12/24 08:00
Physical Exam
Constitutional: No Acute Distress and Chronically Ill
Cardiovascular: Regular Rate and S1/S2; Negative Murmur or Rub
Pulmonary: Clear and Symmetric; Negative Wheezes or Rales
Gastrointestinal: Soft, Non Tender, Non Distended and Normal Bowel Sounds
Skin: Warm and Dry; Negative Rash or Jaundice
Objective Data
Lab Data
Lab Results
06/12/24 04:04
PT 14.6 Sec (11.4-14.6) 06/07/24 14:37
INR 1.11 06/07/24 14:37
APTT 27.5 Sec (23.4-35.0) 06/07/24 14:37
Estimated Creat Clear 29 ml/min 06/12/24 04:04
Lactic Acid 1.9 mmol/L (0.7-2.0) 06/10/24 03:33
Total Bilirubin 1.4 mg/dl (0.2-1.3) H 06/12/24 04:04
AST 44 U/L (14-36) H 06/12/24 04:04
ALT 43 U/L (0-35) H 06/12/24 04:04
Alkaline Phosphatase 223 U/L (38-126) H 06/12/24 04:04
Most recent labs reviewed.
Micro Results:
06/09/24 15:02 Blood Culture - Preliminary
Blood/Venous No Growth in 48 hours- Final report to follow
06/09/24 12:09 Blood Culture - Preliminary
Blood/Venous No Growth in 48 hours- Final report to follow
06/07/24 10:26 Blood Culture - Preliminary
Blood/Venous Bacteroides uniformis
Gram Stain - Preliminary
06/07/24 10:27 Blood Culture - Preliminary
Blood/Venous Bacteroides uniformis
Gram Stain - Preliminary
06/07/24 23:30 MRSA Screen - Final
Nose No Methicillin Resistant Staphylococcus aureus isolated.
06/07/24 10:27 Urine Culture - Final
Urine No Significant Growth
06/07/24 09:19 Influenza Types A & B (EVI) - Final
Nasal Swab Negative for Influenza A & B, NAAT
Negative results must be combined with clinical observations
and patient history.
Nucleic Acid Amplification test (NAAT)performed on the
[email or web address] platform.
[2024-06-12] MEDS: ZOFRAN 4 MG IV (10:40)
--- NOTE | 2024-06-12 10:42 | PTCARENOTE ---
Rec'd pt at 0700. Pt drowsy but easily arousable, orientedx3. Monitor SR. Amio gtts infusing via KRYSTIAN PICC. Lungs dim, pox 96% RA. Pt with moist productive cough for thick yellow/brown mucous, pt spitting onto her own face even though yankauer within
reach. Pt again instructed on use of yankauer and assisted with mouth care, face cleaned off. Colostomy with scant serous output, stoma pink/moist. Right PRINCE with small amt serous drainage to bulb, midline dressing C/D/I. Ramon draining yellow urine,
daughter in to visit this am. Pt OOB to chair with physical therapy-min assist of 2 with walker.
[2024-06-12] MEDS: CORDARONE 518 MG IV (12:13)
--- NOTE | 2024-06-12 12:16 | W.PN.CRS1 ---
Today's Communication / Plan
-
CT A/P
Assessment/Plan
-
POD 5.
1. significant leukocytosis persisting now 19.1 from 26.3. Not on pressors. Antibiotics per ID. At elevated risk for postop abscess.
2. CT A/P with po/IV/rectal given worsening pain.
3. Await bowel function. Stoma viable.
4. Appreciate help of other consultants.
5. Maintain NGT.
Subjective Data
Procedure
Exploratory laparotomy, lysis of his adhesions, sigmoidectomy, creation of end colostomy on 06/07/24
Subjective Data
Date of Service: June 12, 2024
Patient states she feels nauseous. Her abdomen hurts much more today than yesterday.
Objective Data
-
Vital Signs
Temp Pulse Resp BP Pulse Ox
97 F 74 23 152/86 96
06/12/24 11:14 06/12/24 12:00 06/12/24 12:00 06/12/24 12:00 06/12/24 12:00
Intake & Output
06/11/24 06/12/24 06/13/24
06:59 06:59 06:59
Intake Total 2522.9 / 2609.6 2652.5 / 2806.7 1035.2 / 1035.2
Output Total 3065 / 3065 3465 / 3465
Balance -542.1 / -455.4 -812.5 / -658.3 1035.2 / 1035.2
Intake:
IV fluids (Total) 2382.9 / 2469.6 2367.5 / 2521.7 1005.2 / 1005.2
Amio Gtt 400.4 / 417.1 417.5 / 434.2 100.2 / 100.2
D5/0.9% Sodium Chloride 1,000 515 / 515
ml @ 125 mls/hr IV .Q8H [facility] Rx#
:[id number]
D5/0.9% Sodium Chloride 1,000 1400 / 1470 1680 / 1750 500 / 500
ml @ 70 mls/hr IV .[id number] [facility]
Rx#:[id number]
K 67.5 / 67.5 270.0 / 337.5 405.0 / 405.0
IV piggybacks 50 / 50 105 / 105
Amount instilled into GI Tube ( 90 / 90 180 / 180 30 / 30
Total)
[place] Sump 90 / 90 180 / 180 30 / 30
Output:
Drain Output (Total)
Right Lower Abdomen Darius-
[place]
Gastrointestinal tube output ( 350 / 350 400 / 400
Total)
[place] Sump 350 / 350 400 / 400
Urine, Ramon 2700 / 2700 3050 / 3050
Lab Results
06/12/24 04:04
Physical Exam
-
General: No Acute Distress
Abdomen: Soft, Tender (RUQ/RLQ) and Other (anne drain yellow thin)
Wound: Dressing Changed (some morenita removed, enrique in place, no discharge)
[2024-06-12] MEDS: OMNIPAQUE 50 ML PO (13:21)
--- NOTE | 2024-06-12 15:10 | PTCARENOTE ---
Pt OOB in chair approx 3hrs. Back to bed at 1330. contrast for CT started at 1320 via NGT.
--- NOTE | 2024-06-12 16:22 | PTCARENOTE ---
Addendum entered by Radha Rodas RN 06/12/24 16:23:
Small amt liquid brown drainage noted in colostomy bag.
Original Note:
Daughter in to visit updated. CT scan completed, NGT placed back to [facility] on arrival back to ICU.
[2024-06-12] MEDS: D5/0.9% SODIUM CHLORIDE IV (17:27)
[2024-06-12] MEDS: DILAUDID 0.5 MG IV (19:26)
--- NOTE | 2024-06-12 20:36 | PTCARENOTE ---
assumed care, Ox3, c/o 12/28 abd pain refer to MAR, drowsy arouses verbally, sinus on the monitor, B/L scds and teds, +2 upper and lower extremities, weak radials, doppler pedals, RA 95%, diminished, L [place] 60cm continuous suction per order, green
output, BSx4 hypoactive, colostomy brown liq output pink and budded, cruz yellow output c sediment, wounds per worklist, R PRINCE serous output, R DL PICC, Amio gtt and D5NS, call booth within reach, pt able to make needs known, otherwise refer to
documentation.
[2024-06-12 21:17] LABS: Blood Urea Nitrogen 46 mg/dl (7-17); Calcium 7.4 mg/dl (8.4-10.2); Carbon Dioxide 26 mmol/L (22-30); Chloride 109 mmol/L (98-107); Estimated Creatinine Clearance 36 ml/min; Glucose 205 mg/dl (70-99); Potassium 3.5 mmol/L (3.5-5.1); Sodium 139 mmol/L (135-145); eGFR 42.09
[2024-06-13] VITALS (32 sets, daily range): BP systolic 150–169; BP diastolic 70–91; PULSE 68; O2SAT 96; BMI 25.2
[2024-06-13] MEDS: ZOSYN 50 IV ×4 (01:25→19:31)
[2024-06-13] MEDS: HEPARIN 5000 UNITS SC ×4 (01:26→23:05)
[2024-06-13] MEDS: D5/0.9% SODIUM CHLORIDE 1000 IV (05:01)
[2024-06-13 05:35] LABS: Hematocrit 28.6 % (37.0-47.0); Hemoglobin 9.8 g/dL (12.0-16.0); Mean Corp Hgb Conc. 34.3 g/dL (33.0-37.0); Mean Corpuscular Hgb 30.8 pg (27.0-31.0); Mean Corpuscular Volume 89.9 fL (81.0-99.0); Platelet Count 206 10^3/uL (130-400); Red Blood Cell Count 3.18 10^6/uL (4.20-5.40); Red Cell Dist. Width 13.3 % (11.5-14.5); White Blood Cell Count 18.9 10^3/uL (4.8-10.8)
[2024-06-13 06:02] LABS: ALT (SGPT) 40 U/L (0-35); AST (SGOT) 41 U/L (14-36); Albumin 2.1 g/dl (3.5-5.0); Alkaline Phosphatase 249 U/L (38-126); Blood Urea Nitrogen 42 mg/dl (7-17); Calcium 7.6 mg/dl (8.4-10.2); Carbon Dioxide 25 mmol/L (22-30); Chloride 109 mmol/L (98-107); Estimated Creatinine Clearance 39 ml/min; Glucose 199 mg/dl (70-99); Phosphorus 2.4 mg/dl (2.5-4.5); Sodium 138 mmol/L (135-145); Total Bilirubin 1.2 mg/dl (0.2-1.3); Total Protein 4.6 g/dl (6.3-8.2); eGFR 46.33
[2024-06-13] MEDS: KCL 270 MEQ IV ×2 (06:27→18:18)
--- NOTE | 2024-06-13 07:24 | W.PN.HOSP.TC ---
Addendum entered and electronically signed by Kaley Huynh MD 06/13/24 20:11:
I saw and evaluated the patient independently. I reviewed the resident�s note and agree with findings and plan as documented by Dr. Charlton.
GENERAL: elderly, frail, ill appearing female in no apparent distress
HEENT: NC/AT--O2 NC --NGT removed
HEART: regular rate and rhythm, +S1, +S2
LUNGS : clear to auscultation bilaterally
ABDOM: soft, nontender, nondistended, + bowel sounds, +colostomy with stool--PRINCE drain in place--right sided open wound
EXT: no cyanosis, clubbing, or edema--fresh post op hip replacement
NEUROLOGIC: grossly intact
: cruz removed
Septic shock from Acute sigmoid bowel perforation with acute surgical abdomen--unclear if related to pain medication given for total right hip replacement 05/30/24--lactic acid improved--off pressors--s/p exploratory laparotomy, sigmoidectomy, and
creation of end colostomy--cont IVF--NGT removed--pain control as able--OOB--apprec CRS/ID/termite treater--cont zosyn/micafungin--follow cultures
Hyponatremia--apprec renal--likely due to sepsis/IVF resuscitation
Hypokalemia--replete
Acute kidney injury secondary to septic shock/bowel perforation/infection/acute process--improved with IVF--apprec renal--lactates improved
Atrial fibrillation with rapid ventricular response--apprec cards--new diagnosis--consideration for heparin drip with oral anticoagulation eventually--s/p amio--cont beta blockers--Echocardiogram conducted on 06/09/2024 showed aortic sclerosis
without stenosis and no aortic regurgitation. Moderate tricuspid regurgitation. Mild pulmonic regurgitation. Pleural effusion present
Essential hypertension--restart meds as BP allows
Mild cognitive impairment--Monitoring--pt refuses to engage in conversation
Total right hip replacement on 05/30/2024--apprec ortho--enrique still in--pt refused to have ortho remove--will need PT/OT--likely SNF
Interstitial lung disease with bronchiectasis--Past medical history of spontaneous pneumothorax--nothing current
code status--Full Code
DVT proph-- Heparin sc
Original Note:
Today's Communication/Plan
-
Continue with Zosyn and micafungin as per ID recommendations. Patient remains n.p.o. and can get ice chips. Maintain wound care for ostomy site. Patient has hypokalemia and we continue to replete - approximately 80 mEq today. Cardiology
recommends stopping IV amiodarone and switching to IV Lopressor after correction of potassium.
Assessment / Plan
Assessment / Plan
Assessment/Plan:
-Acute sigmoid bowel perforation with acute surgical abdomen:
Patient's lactic acid was 4.3 in the emergency department
The patient was hyponatremic with a sodium of 123, hypochloremic at 93, low bicarb at 18, elevated BUN at 55, and an elevated creatinine at 1.5 in the emergency department
An abdominal CT showed findings suggesting perforated bowel probable at sigmoid colon with associated retroperitoneal and intraperitoneal free air, air-fluid level suggesting abscess formation and extraluminal stool.
Surgery and colorectal surgery consulted
IV fluid support given
Patient is postop from exploratory laparotomy, sigmoidectomy, and creation of end colostomy
Hydromorphone/Zofran as needed
Continue IV Zosyn -white blood cells at 28.5 on 06/10/2024
Appreciate infectious diseases recommendations�continue Zosyn and micafungin
The patient has been extubated and is on room air
Levophed has been weaned down and discontinued
The patient has been downgraded to telemetry as she no longer is on pressors and is not intubated.
-Hyponatremia:
Patient was found to be hyponatremic with a sodium of 123 in the emergency department.
Sodium is 129 on 06/08/2024 -is 128 on 06/09/2024, is 132 on 06/10/2024
Appreciate nephrology recommendations
Nephrology has recommended reducing IV fluids.
-Hypokalemia:
The patient had hypokalemia at 3.0 on 06/13/2024 and 3.1 on 06/13/2024
More potassium repleted�continue to follow with labs
-Acute kidney injury secondary to bowel perforation/infection/acute process:
Patient's baseline creatinine is 0.8 taken on 05/12/2024
Lactic acid was 4.3 in the emergency department
On presentation to the emergency department on 06/07/2024 the patient had a creatinine of 1.5 indicating acute kidney injury.
On 06/08/2024 creatinine is 2.0 continue to trend creatinine -was 2.4 at 12: 02 on 06/08/2024 and has begun trending down on 06/09/2024 at 2.2, remained 2.2 on 06/10/2024, creatinine was 1.2 on 06/13/2024
Was on a bicarb infusion but now is on D5 normal saline
Atrial fibrillation with rapid ventricular response:
New diagnosis found postoperatively.
SOO1ER2-CXAu of 4 due to the age being greater than 75, female, hypertension
Patient is now back in sinus rhythm after receiving Amio
Will start low-dose beta-norma when blood pressure will allow.
Echocardiogram conducted on 06/09/2024 showed aortic sclerosis without stenosis and no aortic regurgitation. Moderate tricuspid regurgitation. Mild pulmonic regurgitation. Pleural effusion present
Therapeutic anticoagulation will likely be started once cleared by surgery
Cardiology recommends changing from IV amiodarone to IV Lopressor after additional correction of potassium
-Essential hypertension:
Holding home hypertension meds -will consider resuming medications once patient is more hemodynamically stable postoperatively
-Mild cognitive impairment:
Monitoring
-S/p ostomy:
Ostomy on the left side
NGT removed
N.p.o. with sips/chips
Wound healing well, ostomy producing stool, maintain wound care
Colorectal surgery continues to follow
-Total right hip replacement on 05/30/2024
-Interstitial lung disease with bronchiectasis
-Past medical history of spontaneous pneumothorax
FULL CODE STATUS
DVT prophylaxis: Heparin sc
Stress ulcer prophylaxis: Famotidine
Imaging:
-Abdominal CT conducted on 06/07/2024:
New findings suggesting perforated bowel probable sigmoid colon with associated retroperitoneal and intraperitoneal free air, air-fluid levels suggesting abscess formation and extraluminal stool.
Mild small bowel dilatation probably ileus due to reactive change. New
Tiny bilateral pleural effusions. New
Too small to characterize hypodense left renal lesion likely a benign cyst.
Mild lingular bronchiectasis. Stable
Critical value: Free air.
-Chest x-ray conducted on 06/07/2024:
Endotracheal tube is present with its tip 6 cm above the rafiq.
-Echocardiogram conducted on 06/09/2024:
Normal biventricular size and systolic function without regional wall motion abnormality.
Mild to moderate mitral regurgitation.
Pleural effusion present.
No prior study available for comparison.
Anticipated Discharge: > 48 hours
Subjective/Interval History
-
Date of Service: June 13, 2024
Met with the patient at the bedside. She is visibly uncomfortable and appears frustrated. When I tried to talk to her she does not share many words and pointed to her abdomen to indicate that it hurt near her surgical site.
Objective Data
-
Labs:
Laboratory Results
06/12/24 06/13/24
20:50 04:48
WBC 18.9 H
Hgb 9.8 L
Hct 28.6 L
Plt Count 206
Sodium 139 138
Potassium 3.5 3.0 L
Chloride 109 H 109 H
Carbon Dioxide 26 25
BUN 46 H 42 H
Creatinine 1.3 H 1.2 H
Glucose 205 H 199 H
Calcium 7.4 L 7.6 L
Total Bilirubin 1.2
AST 41 H
ALT 40 H
Alkaline Phosphatase 249 H
Vital Signs:
Vital Signs
Temp Pulse Resp BP Pulse Ox
97.8 F 69 19 156/72 96
06/13/24 00:30 06/13/24 06:30 06/13/24 06:30 06/13/24 06:15 06/13/24 06:30
I&O
06/12/24 06/13/24 06/14/24
06:59 06:59 06:59
Intake Total 2652.5 / 2806.7 4928.3 / 4928.3
Output Total 3465 / 3465 3980 / 3980
Balance -812.5 / -658.3 948.3 / 948.3
Review of Systems
-
History Source: Patient
Constitutional: Reports No Symptoms
EENT: Reports Sore Throat and Other (Seen repeatedly suctioning liquid from her throat)
Respiratory: Reports No Symptoms
Cardiac: Reports No Symptoms
Abdomen/GI: Reports Pain (Pain near her surgical sites)
Breast: Reports No Symptoms
Genitourinary: Reports No Symptoms
Musculoskeletal: Reports No Symptoms
Skin: Reports Other (Irritation near her surgical sites)
Neuro: Reports No Symptoms
Endocrine: Reports No Symptoms
Physical Exam
-
General: Well Developed, Well Nourished and No Apparent Distress
HEENT: Normocephalic, Atraumatic and Moist Mucous Membranes
Respiratory: Clear to Auscultation
Cardiac: S1/S2; Negative Murmur, Rub or JVD
Breast: Deferred by me
GI: Soft and Ostomy
Rectal: Deferred by Provider
Genito-urinary: Deferred by me
Musculoskeletal: No Clubbing and No Cyanosis
Skin: Warm and Dry
Neuro: Awake, Alert, Oriented and AO x 3
Psych: Calm
--- NOTE | 2024-06-13 08:05 | W.PN.NEPH.PH ---
Today's Communication / Plan
-
Replete K
Continue IV fluids
Assessment/Plan
-
79-year-old female with PMH of HTN, HLD, interstitial lung disease with bronchiectasis, history of pneumonia multiple times, history of spontaneous pneumothorax x 2 who presents 8 days after right hip replacement;
Presents with� Colonic perforation s/p right hip replacement; status post colectomy with ostomy
Baseline creatinine 0.8 with admitting creatinine 1.5.
Impression.
Acute kidney injury in the setting of sepsis and hemodynamic.
Bowel perforation status post sigmoidectomy.
Hyponatremia.
Hypertension.
Status post total hip replacement May 30, 2024.
Interstitial lung disease..
Plan.
follow BMP
creatinine 1.2
continue IVFs will add KCL to fluids
replete K at least 80meq today
follow UOP:3.6 liters, weights stable
NGT per surgery
additional K
-
-
Date of Service: June 13, 2024
CC / HPI / ROS
-
Chief Complaint:
Abdominal pain
History of Present Illness:
Acute kidney injury secondary to sepsis and perforated viscus.
LONG/Cr stable 1.2
BP stable
Na up to 138
K low 3.[address]
nonoliguric
Review of Systems:
no CP/SOB
Nonoliguric. Weight is stable
Labs
-
Labs:
WBC 18.9 10^3/uL (4.8-10.8) H 06/13/24 04:48
RBC 3.18 10^6/uL (4.20-5.40) L 06/13/24 04:48
Hgb 9.8 g/dL (12.0-16.0) L 06/13/24 04:48
Hct 28.6 % (37.0-47.0) L 06/13/24 04:48
Plt Count 206 10^3/uL (130-400) 06/13/24 04:48
Sodium 138 mmol/L (135-145) 06/13/24 04:48
Potassium 3.0 mmol/L (3.5-5.1) L 06/13/24 04:48
Chloride 109 mmol/L (98-107) H 06/13/24 04:48
Carbon Dioxide 25 mmol/L (22-30) 06/13/24 04:48
BUN 42 mg/dl (7-17) H 06/13/24 04:48
Creatinine 1.2 mg/dL (0.6-1.0) H 06/13/24 04:48
eGFR 46.33 06/13/24 04:48
Glucose 199 mg/dl (70-99) H 06/13/24 04:48
Calcium 7.6 mg/dl (8.4-10.2) L 06/13/24 04:48
Phosphorus 2.4 mg/dl (2.5-4.5) L 06/13/24 04:48
Albumin 2.1 g/dl (3.5-5.0) L 06/13/24 04:48
Physical Exam
-
Vital Signs:
Vital Signs
Temp Pulse Resp BP Pulse Ox
97.8 F 69 19 156/72 96
06/13/24 00:30 06/13/24 06:30 06/13/24 06:30 06/13/24 06:15 06/13/24 06:30
Cardiovascular:: Regular rate and rhythm
Respiratory:: Bilateral: Coarse
Lung Excursion:: Normal
Abdomen:: Nontender and Soft
Bowel Sounds:: None
Extremity Edema:: None: Bilateral:
Ramon Catheter: Yes
--- NOTE | 2024-06-13 08:06 | W.PN.CD ---
Today's Communication / Plan
-
pAF - stable
Remain sin sinus rhyhtm on IV amio
Remains NPO.
Correct lytes / hypokalemia /K 3.0 - as per nephrology and primary tyrese
after addtional correction of potassium I would stop IV amioadrone and use IV lopressor
Can use PRN hydralazine for additonal BP control
Impression / Plan
-
A/P: 79-year-old woman with history of hypertension, hypercholesterolemia, interstitial lung disease, bronchiectasis, history of spontaneous pneumothorax who underwent right hip replacement 1 week ago and then presented to [facility] with
bowel perforation requiring emergent laparotomy with colectomy and colostomy. She had paroxysms of AF currently in SR.
A-fib with RVR now in SR
-New diagnosis
-CHADSVASC 4 (age greater than 75, female, hypertension)
-Occurred in the postoperative setting after emergent laparotomy and patient on pressors.
-Off pressors.
-correct electrolyte abnormalities
-Start low-dose beta-norma when blood pressure will allow.
-Short duration amiodarone, hopeful to start metoprolol soon once able to take meds enterally
- she currently is NPO
.
LONG. Creatinine 1.6. now improved to 1.2
-Nephrology consulted
Hypokalemia - K 3.0 . Management per nephrolgy and primary team
.
Postop emergent laparotomy/colectomy for bowel perforation.
-Management directed by colorectal surgery
.
Pulmonary. Patient with a history of pulmonary disease/interstitial lung disease/bronchiectasis and prior history of pneumothorax. Management directed by pulmonary/critical care
.
Hypertension. History of hypertension. elevted BP.
- can
Hip right hip replacement 1 week ago.
Subjective: remains confused
echo:
CONCLUSIONS
Normal biventricular size and systolic function without regional wall motion
abnormality.
Mild to moderate mitral regurgitation.
Pleural effusion present.
No prior study available for comparison.
Physical Exam
Vital Signs/Labs
Vital Signs
Temp Pulse Resp BP Pulse Ox
97.8 F 69 19 156/72 96
06/13/24 00:30 06/13/24 06:30 06/13/24 06:30 06/13/24 06:15 06/13/24 06:30
06/12/24 06/13/24 06/14/24
06:59 06:59 06:59
Actual Weight 75.3 kg 75.2 kg
06/13/24 04:48
06/13/24 04:48
PT 14.6 Sec (11.4-14.6) 06/07/24 14:37
INR 1.11 06/07/24 14:37
APTT 27.5 Sec (23.4-35.0) 06/07/24 14:37
Magnesium 2.0 mg/dl (1.6-2.3) 06/13/24 04:48
Physical Exam
Constitutional: No acute distress
Cardiovascular: Rhythm & rate is regular
Respiratory: Wheeze Absent and Rhonchi Absent
GI: Other (post op . ostomy )
Neuro/Psych: Alert
Other: Other (mild arm edema. lower extremty edema. including dependent areas upper thighs. )
Data Reviewed
-
Date of Service: June 13, 2024
Medical Decision Making: Reviewed Test Results
Echo: Report Reviewed by me
Medical Tests (PFT, Pathology etc): Report Reviewed by me and Other (discussed with nephrolgy)
Labs: Labs Reviewed by me
[2024-06-13] MEDS: KCL 1010 MEQ IV ×2 (08:54→18:49)
--- NOTE | 2024-06-13 09:04 | W.PN.UPDATE ---
Addendum entered and electronically signed by Rafiq Fuentes PA-C 06/13/24 12:44:
Please note:
Surgery was June 14, not 21 May. I returned to see about taking the enrique out. She was not really feeling well and up for this today. Continue Tx per the primary team. In genral enrique OK in for 2-3 weeks. The incision is healing well,
without overt evidence of concern. Supplies left in the room for my colleague, Rio, to potentially remove tomorrow AM on rounds.
Original Note:
Update Note
Progress Note Update
Patient s/p Right BARRINGTON Jun 14 (Sonali) complicated by post-op bowel perforation s/p exploratory laparotomy, lysis of adhesions, sigmoidectomy, creation of end-colostomy with Dr. Moreno Jun 14. Afeb this AM. WBC 18.9. Patient with NG tube.
Planned to remove enrique this AM, but GI team currently removing clips from the abdomen. Daugther at the bedside. Patient with NG tube, hopefully out later today. Abdomen CT yesterday reveals a new 7.5 cm abscess in the right subhepatic space.
Continue Tx per the primary team. Will plan for staple removal latera today or tomorrow AM on rounds based on her clinicial course/plan throughout the day.
[2024-06-13] MEDS: DILAUDID 0.5 MG IV ×3 (09:15→23:12)
--- NOTE | 2024-06-13 09:15 | W.PN.ID1 ---
Date of Service
Date of Service: June 13, 2024
Today's Communication
- discussed with Dr Torres - not enough perihepatic fluid to drain at this point
- repeat blood cultures x2 no growth to date
- 06/07 blood cultures both with anaerobe - bacteroides - source bowel perforation
- c/w with zosyn
- c/w micafungin
- has PICC, may consider a course of home IV antibiotics if unable to get drainage of the collection
Assessment / Plan
Bowel Perforation likely due to Stercoral colitis
GNR Bacteremia due to bowel perforation
S/p Exploratory laparotomy, lysis of adhesions, sigmoidectomy, creation of end-colostomy
Ileus
LONG
Recent right hip replacement
- discussed with Dr Torres - not enough perihepatic fluid to drain at this point
- repeat blood cultures x2 no growth to date
- 06/07 blood cultures both with anaerobe - bacteroides - source bowel perforation
- c/w with zosyn
- c/w micafungin
- has PICC, may consider a course of home IV antibiotics if unable to get drainage of the collection
follow clinically
Chief Complaint
-: Other (bowel perforation, secondary peritonitis)
Subjective / Review of Systems
remains afebrile
bp stable
complaining of abdominal pain otherwise no complaints
reviewed CT findings with Dr Torres who comments 'Dr Coello discussed w Dr Arizmendi yesterday, small amt perihepatic fluid, not enough to drain at this point'
Vital Signs / Physical Exam
Vital Signs
Vital Signs
Temp Pulse Resp BP Pulse Ox
97.8 F 69 19 156/72 96
06/13/24 00:30 06/13/24 06:30 06/13/24 06:30 06/13/24 06:15 06/13/24 06:30
Physical Exam
Constitutional: No Acute Distress and Chronically Ill
Cardiovascular: Regular Rate and S1/S2; Negative Murmur or Rub
Pulmonary: Clear and Symmetric; Negative Wheezes or Rales
Gastrointestinal: Soft, Non Tender, Non Distended and Normal Bowel Sounds
Skin: Warm and Dry; Negative Rash or Jaundice
Objective Data
Lab Data
Lab Results
06/13/24 04:48
PT 14.6 Sec (11.4-14.6) 06/07/24 14:37
INR 1.11 06/07/24 14:37
APTT 27.5 Sec (23.4-35.0) 06/07/24 14:37
Estimated Creat Clear 39 ml/min 06/13/24 04:48
Lactic Acid 1.9 mmol/L (0.7-2.0) 06/10/24 03:33
Total Bilirubin 1.2 mg/dl (0.2-1.3) 06/13/24 04:48
AST 41 U/L (14-36) H 06/13/24 04:48
ALT 40 U/L (0-35) H 06/13/24 04:48
Alkaline Phosphatase 249 U/L (38-126) H 06/13/24 04:48
Most recent labs reviewed.
CT Scan: Image Reviewed and Report Reviewed (NEW 7.5 cm ABSCESS in the RIGHT SUBHEPATIC SPACE, Multifocal peripheral endobronchial infection in both lungs with chronic cylindrical and varicoid bronchiectasis in the lingula.)
Micro Results:
06/09/24 15:02 Blood Culture - Preliminary
Blood/Venous No Growth in 72 hours- Final report to follow
06/09/24 12:09 Blood Culture - Preliminary
Blood/Venous No Growth in 72 hours- Final report to follow
06/07/24 10:26 Blood Culture - Preliminary
Blood/Venous Bacteroides uniformis
Gram Stain - Preliminary
06/07/24 10:27 Blood Culture - Preliminary
Blood/Venous Bacteroides uniformis
Gram Stain - Preliminary
06/07/24 23:30 MRSA Screen - Final
Nose No Methicillin Resistant Staphylococcus aureus isolated.
06/07/24 10:27 Urine Culture - Final
Urine No Significant Growth
06/07/24 09:19 Influenza Types A & B (EVI) - Final
Nasal Swab Negative for Influenza A & B, NAAT
Negative results must be combined with clinical observations
and patient history.
Nucleic Acid Amplification test (NAAT)performed on the
[employer] platform.
--- NOTE | 2024-06-13 09:30 | PTCARENOTE ---
Rec'd pt at [address] Moreno in to see pt and removed 2/3 of the enrique from abd incision. He left 1 area open and not approximated to drain. Wound bed pink at open area. Dry sterile 4x4 pack in wound and DSD applied over. Rest of abd
incision approximated with several enrique in place. Overall pt is drowsy but easily arousable and oriented. Speech is soft but clear and pt is oriented. Extremties are weak but able to HENSON. Needs encouragement to do activities. Skin is pale pink
and warm. Pt with multiple bruises on arms. +2 arm and Leg edema and +1 gen anasarca. Midline abd incision and documented. Pt also with RLQ PRINCE drain to bulb suction with scant amt of serous drainage. Respirs are unlabored on RA with sats of 95%. BS
in general are sl decreased at the bases but clear. RA sats are 95%. Getting about 1000 on IS. Coughs an intermittent cough and is exectorating whitish/foote secretions. Constantly has the yankeur in her hand and is using it. Monitor SR. Vs as
documented. Remains on IV Amiodarone at 0.5 mg/min via R arm DL picc. Other lumen with IV fluids that currently are being changed over to D5NS +20 meq KCL at 110 mls/hr in addition to a 40 meq KCL rider infusing. + pulses as document. DP pulses are
fleeting at best with the doppler but + PT pulses and feet are warm with cap refill <2 sec. Knees do have some sl mottling on them. Denies chest pain. Abd is soft-sl tender to palp with hypoactive BS. L xiomara grimaldo removed at 0830 by surgery and pt
ok for chips and few sips of liquids. L abd colostomy stoma is pink with brownish liquid drainage. Ramon removed currently due to preexisting order- was draining justyna/yellow urine. R hip incision with enrique intact draining some serous drainage
around enrique. Some bruising noted along incision. Hip precautions maintained. Pt turned and repositioned. Skin and mouth care given. Daughter in and plan of care reviewed. Callbell in reach.
--- NOTE | 2024-06-13 10:00 | PTCARENOTE ---
Addendum entered by Mary Grace Sadler RN 06/13/24 15:43:
additional assessment- ABd discomfort easing since Dilaudid
Original Note:
AM care given. Yenny removed at 0930 per earlier MD order. KCL rider almost completed. Taking few ice chips with no diff in swallowing.
--- NOTE | 2024-06-13 10:13 | W.PN.CRS1 ---
Today's Communication / Plan
-
ngt removed
npo with sips/chips
midline wound care
Assessment/Plan
-
79-year-old female with PMH of HTN, HLD, interstitial lung disease with bronchiectasis, history of pneumonia multiple times, history of spontaneous pneumothorax x 2 who presents 8 days after right hip replacement; 4 days prior to admission, she
started to develop abdominal pain and nausea with decreased bowel function; the abdominal pain and nausea/vomiting continue to worsen; she denies any fevers, chest pain, or urinary symptoms; she does have dyspnea due to the abdominal pain; her last
colonoscopy was 2 years ago which she reports as normal (report not available to me); in the ED, her WBC was 9.3, CR 1.5 and a CTAP was done which shows moderate free air, extraluminal stool adjacent to the mid sigmoid colon with concern of sigmoid
perforation possibly due to diverticulitis
POD 6 ex lap, sigmoidectomy with end colostomy creation for perforated stercoral colitis; extensive washout ~9L for feculent peritonitis
06/12- CT A/P due to increasing abdominal pain did not show any abscesses or drainable collections (discussed with IR)
AFVSS
WBC 18.9 from 19.1. Hgb 9.8 from 10.2. Creatinine 1.2 from 1.3.
�Leukocytosis improving
�NGT removed by provider at bedside. Maintain NPO with chips/sips. Will consider TPN if diet not advanced in the next few days.
�CT A/P discussed with daughter at bedside
-Wound RN for stoma care/midline wound care
-Daily packing to midline wound with dressing changes
�Continue IV Zosyn; gram-negative bacteremia, appreciate ID
� Pain control with Ofirmev and Dilaudid as needed
� Continue NC, wean as tolerated; appreciate pulmonology
� A-fib with RVR, continue Amio drip, appreciate cardiology
� DVT PPx: subQ heparin
� Appreciate waste handling technician/hospitalist
-Dipso: eventual PM+R consult when getting closer to dispo for rehab eval
Subjective Data
Procedure
Exploratory laparotomy, lysis of his adhesions, sigmoidectomy, creation of end colostomy on 06/07/24
Subjective Data
Date of Service: June 13, 2024
Patient states her abdomen still has pain but improved with pain medication. She feels a little nauseous. The NGT is bothering her. Her ostomy has function this morning.
Objective Data
-
Vital Signs
Temp Pulse Resp BP Pulse Ox
97.8 F 66 21 163/76 95
06/13/24 00:30 06/13/24 09:00 06/13/24 09:00 06/13/24 09:00 06/13/24 09:00
Intake & Output
06/12/24 06/13/24 06/14/24
06:59 06:59 06:59
Intake Total 2652.5 / 2806.7 4928.3 / 5122.5 776.8 / 776.8
Output Total 3465 / 3465 3980 / 3980 400 / 400
Balance -812.5 / -658.3 948.3 / 1142.5 376.8 / 376.8
Intake:
IV fluids (Total) 2367.5 / 2521.7 3758.3 / 3952.5 776.8 / 776.8
Amio Gtt 417.5 / 434.2 400.8 / 417.5 66.8 / 66.8
D5/0.9% Sodium Chloride 1,000 110 / 110
ml @ 110 mls/hr IV .Q9H11M LINDA
with KCl 20 Meq Rx#:[id number]
D5/0.9% Sodium Chloride 1,000 1979 / 2089 330 / 330
ml @ 110 mls/hr IV .Q9H6M LINDA
Rx#:[id number]
D5/0.9% Sodium Chloride 1,000 1680 / 1750 500 / 500
ml @ 70 mls/hr IV .[id number] LINDA
Rx#:[id number]
K 270.0 / 337.5 877.5 / 945.0 270.0 / 270.0
IV piggybacks 105 / 105 50 / 50
Amount instilled into GI Tube ( 180 / 180 1120 / 1120
Total)
[place] 180 / 180 1120 / 1120
Output:
Liquid stool amount 125 / 125
Colostomy 125 / 125
Drain Output (Total)
Right Lower Abdomen Darius-
[place]
Gastrointestinal tube output ( 400 / 400 200 / 200
Total)
[place] 400 / 400 200 / 200
Urine, Ramon 3050 / 3050 3650 / 3650 400 / 400
Lab Results
06/13/24 04:48
Physical Exam
-
General: No Acute Distress and AOx3
Abdomen: Soft, Non Distended, Tender (mild RUQ/RLQ) and Other (ostomy warm and pink, stool in bag)
Wound: Dressing Changed and Other (midline wound is murky, opened lower portion by removing enrique, packed with 4x4s and tape. )
[2024-06-13] MEDS: MYCAMINE 105 MG IV (10:48)
--- NOTE | 2024-06-13 12:15 | PTCARENOTE ---
Assessment overall is unchanged. Overall is drowsy but easily arousable and pt is oriented. Needs encouragement to do activities although will take the ice chips on her own. Abd dressing changed due to a large amt of tannish/purulent drainage from
the open area of the wound. Redressed with 4x4's and abds. Pt felt pressure in her lower abd and has not voided yet. Bladder scanned for 231 mls of urine. Purewick in place. Denies nausea. Physical therapy in to work with pt and pt assisted with
assist of 2 oob to the chair. Gait is weak but able to bear wt and get herself into the chair. Call booth in reach. Daughter at the bedside.
--- NOTE | 2024-06-13 13:30 | PTCARENOTE ---
Ortho in to examine hip incision. Matheus left intact. Currently sitting oob- taking some ice chips and sips of water. Admits to feeling tired sitting up but is willing to stay oob currently.
--- NOTE | 2024-06-13 15:10 | PTCARENOTE ---
Assisted back to bed with assist of 2. Sat oob for 3 hrs and overall tolerated being oob ok although admitted to being tired. Lytes sent as ordered. Pt incont of a saturated amt of urine on the Covidien pad as well as some in the purewick cansiter.
New purewick placed. Yanni care given. Tolerating ice chips. No other changes.
--- NOTE | 2024-06-13 15:25 | CM ---
Patient seen at bedside with physicians. Patient daughter also present. Patient NG tube removed today and Patient may benefit from PM&R assessment to confirm level of care when medically appropriate. CM will continue to follow for discharge planning
needs.
Plan; SNF vs Acute rehab.
[2024-06-13 16:11] LABS: Carbon Dioxide 25 mmol/L (22-30); Chloride 106 mmol/L (98-107); Potassium 3.1 mmol/L (3.5-5.1); Sodium 136 mmol/L (135-145)
[2024-06-13] MEDS: CORDARONE 518 MG IV (17:05)
--- NOTE | 2024-06-13 17:20 | PTCARENOTE ---
Remains resting. Repostioned. Admits to Lower abd discomfort/pressure. Remedicated with Dilaudid 0.5 mg IV for 8 discomfort. Abd dressing currently is D+I. Colostomy with 20 mls of liquid brown stool. Stoma is pink. Dr. Dodson updated on lab
results. K+ is 3.1. Voiding yellow urine via purewick. Arms and legs elevated on pillows for edema. Hip precautions maintained.
--- NOTE | 2024-06-13 18:20 | PTCARENOTE ---
KCL 40 meq rider hung via R arm DL picc. Discomfort sl better post Dilaudid - now a 6-7. Call booth in reach. Pt taking ice chips
--- NOTE | 2024-06-13 19:33 | PTCARENOTE ---
Report given to [address] [place] [address]. No changes in assessment.
--- NOTE | 2024-06-13 20:00 | PTCARENOTE ---
pt transferred to rm 210 via bed on monitor accomp by RADHA
--- NOTE | 2024-06-13 20:27 | VATNOTE ---
While assessing Left arm peripheral sites also noted R arm PICC line. Assessed for +3 edema below PICC recommended to Libby PARRA for Ultrasound to be done in am also noted Left arm edema in a different location than Right arm. VAT to follow
--- NOTE | 2024-06-13 21:00 | PTCARENOTE ---
Addendum entered by Libby Suh RN 06/14/24 05:42:
wound care and colostomy appliance changed/completed this am
Original Note:
Rec'd report from ICU and later patient into 2100. Pt is aaox3, but drowsy. pt is pale but her face is flush. pt has IVF, IV ABX, IV K RAIDER, and Amio running. pt colostomy has small amount of drainage, PRINCE drain is c/d/i, abd incision w/ small
amount of drainage. pt is placed on purewick.
pt has +3 pedal edema, + pulses w/ doppler. elevated legs on pillow.
RUE - +3 edema - red, warm. elevated on pillows. VAT evaluated.. okay to use but recommend US - Informed COTTON JAMMER Mauro; order for US obtained.
Right hip - incision potato chip maker w/ enrique. cleanse site w/ nss, and collin placed under hip to collect drainage.
pt given call booth and placed on bed alarm.
--- NOTE | 2024-06-13 21:00 | W.PN.UPDATE ---
Update Note
Progress Note Update
RN reports patient right arm with redness and edema. Patient seen and evaluated. IV PICC line on Right Upper extremity, +2 edema, + warmth, + redness below at the PICC line at antecubital. + pulses, cap refill<3sec, patient able to move and wiggle
fingers. Denies any pain at present. will order US RUE r/o DVT.
[2024-06-13] MEDS: PEPCID 20 MG IV (22:21)
[2024-06-13] MEDS: NSS (PRESERVATIVE FREE) 8 ML IV (22:22)
[2024-06-13] MEDS: ZOFRAN 4 MG IV (23:13)
[2024-06-14] MEDS: ZOSYN 50 IV (02:39)
[2024-06-14 04:31] VITALS: BP 164/85
[2024-06-14] MEDS: KCL 1010 MEQ IV ×3 (04:48→23:34)
[2024-06-14] MEDS: DILAUDID 0.5 MG IV ×4 (04:48→22:04)
[2024-06-14] MEDS: ZOFRAN 4 MG IV (04:49)
[2024-06-14 05:26] VITALS: BMI 25.1
--- NOTE | 2024-06-14 06:57 | W.PN.UPDATE ---
Update Note
Progress Note Update
79-year-old female s/p R [place] 05/30/2024 (POD 15) with Dr. Lyon with postop bowel perforation s/p exploratory laparotomy, lysis of adhesions, sigmoidectomy, creation of end-colostomy with Dr. Moreno 06/07/2024. Resting comfortably on my arrival.
PE: Right hip incision with enrique approximating incision, which is healing well. No erythema, warmth, or active drainage. Enrique were removed and Steri-Strips reapplied without complication. Mild diffuse swelling and minimal ecchymosis. [place]
without pain. Gentle ROM hip without pain. Calf is soft and nontender. NVI distally. Able to wiggle toes and dorsi/plantar flex ankle without difficulty.
Appreciate all teams involved with care of this patient. Continue with formal physical therapy as medically able, THP's. DVT ppx per primary team. Orthopedic surgery will continue to follow along.
[2024-06-14 07:05] VITALS: BP 168/82
--- NOTE | 2024-06-14 07:30 | W.PN.HOSP.TC ---
Addendum entered and electronically signed by Kaley Huynh MD 06/14/24 17:20:
I saw and evaluated the patient independently. I reviewed the resident�s note and agree with findings and plan as documented by Dr. Charlton.
GENERAL: elderly, frail, ill appearing female in no apparent distress
HEENT: NC/AT--O2 NC --NGT removed
HEART: regular rate and rhythm, +S1, +S2
LUNGS : clear to auscultation bilaterally
ABDOM: soft, nontender, nondistended, + bowel sounds, +colostomy with stool--PRINCE drain in place--right sided open wound
EXT: no cyanosis, clubbing, or edema--fresh post op hip replacement
NEUROLOGIC: grossly intact
: cruz removed
Pt seems to me to have more than mild cognitive impairment. Acting more like dementia. Perhaps covered well at home but events of recent weeks may have exacerbated issues. Perhaps 2 surgeries in close proximity (hip and now bowel) are affecting her
mentation? People with cognitive issues usually take a long time post op to return to 'normal/baseline'. She will NOT SPEAK to me or my team. She moans and generally appears unwell. Points at what is bothering her. Would limit pain meds if we can.
Psych consult might be helpful.
Septic shock from Acute sigmoid bowel perforation with acute surgical abdomen--unclear if related to pain medication given for total right hip replacement 05/30/24 or something else--lactic acid improved--off pressors--s/p exploratory laparotomy,
sigmoidectomy, and creation of end colostomy--cont IVF--NGT removed--pain control as able--OOB--apprec CRS/ID/stab setter and driller--cont zosyn/micafungin--follow cultures
Hyponatremia--apprec renal--likely due to sepsis/IVF resuscitation
Hypokalemia--replete
Acute kidney injury secondary to septic shock/bowel perforation/infection/acute process--improved with IVF--apprec renal--lactates improved
Atrial fibrillation with rapid ventricular response--apprec cards--new diagnosis--consideration for heparin drip with oral anticoagulation eventually--s/p amio--cont beta blockers--Echocardiogram conducted on 06/09/2024 showed aortic sclerosis
without stenosis and no aortic regurgitation. Moderate tricuspid regurgitation. Mild pulmonic regurgitation. Pleural effusion present
Essential hypertension--restart meds as BP allows
Mild cognitive impairment--Monitoring--pt refuses to engage in conversation
Total right hip replacement on 05/30/2024--apprec ortho--enrique still in--pt refused to have ortho remove--will need PT/OT--likely SNF
Interstitial lung disease with bronchiectasis--Past medical history of spontaneous pneumothorax--nothing current
code status--Full Code
DVT proph-- Heparin sc
Original Note:
Today's Communication/Plan
-
Continue Zosyn and micafungin. Zosyn dose increased to 4.5g IV every 6 hours. Patient remained hypokalemic today and potassium is repleted. IV amiodarone stopped. Continue pain control. TPN initiated by surgery�upcoming swallow eval.
Assessment / Plan
Assessment / Plan
Assessment/Plan:
-Acute sigmoid bowel perforation with acute surgical abdomen:
Patient's lactic acid was 4.3 in the emergency department
The patient was hyponatremic with a sodium of 123, hypochloremic at 93, low bicarb at 18, elevated BUN at 55, and an elevated creatinine at 1.5 in the emergency department
An abdominal CT showed findings suggesting perforated bowel probable at sigmoid colon with associated retroperitoneal and intraperitoneal free air, air-fluid level suggesting abscess formation and extraluminal stool.
Surgery and colorectal surgery consulted
IV fluid support given
Patient is postop from exploratory laparotomy, sigmoidectomy, and creation of end colostomy
Hydromorphone/Zofran as needed
Continue IV Zosyn -white blood cells at 28.5 on 06/10/2024,
Appreciate infectious diseases recommendations�continue Zosyn and micafungin -patient has a PICC line and we may consider home IV antibiotics if indicated
The patient has been extubated and is on room air
Levophed has been weaned down and discontinued
The patient has been downgraded to telemetry as she no longer is on pressors and is not intubated.
TPN initiated by surgery
-Left hand swelling:
Patient had left hand swelling on 06/14/2024
Bilateral upper extremity ultrasound ordered -pending
-Hyponatremia:
Patient was found to be hyponatremic with a sodium of 123 in the emergency department.
Sodium is 129 on 06/08/2024 -is 128 on 06/09/2024, is 132 on 06/10/2024, 139 on 06/14/2019
GFR at baseline
Appreciate nephrology recommendations
Nephrology has recommended reducing IV fluids.
-Hypokalemia:
The patient had hypokalemia at 3.0 on 06/13/2024 and 3.1 on 06/13/2024, 3.1 on 06/14/24
More potassium repleted�continue to follow with labs
-Acute kidney injury secondary to bowel perforation/infection/acute process:
Patient's baseline creatinine is 0.8 taken on 05/12/2024
Lactic acid was 4.3 in the emergency department
On presentation to the emergency department on 06/07/2024 the patient had a creatinine of 1.5 indicating acute kidney injury.
On 06/08/2024 creatinine is 2.0 continue to trend creatinine -was 2.4 at 12: 02 on 06/08/2024 and has begun trending down on 06/09/2024 at 2.2, remained 2.2 on 06/10/2024, creatinine was 1.2 on 06/13/2024
Was on a bicarb infusion but now is on D5 normal saline
Atrial fibrillation with rapid ventricular response:
New diagnosis found postoperatively.
[id number] of 4 due to the age being greater than 75, female, hypertension
Patient is now back in sinus rhythm after receiving Amio
Will start low-dose beta-norma when blood pressure will allow.
Echocardiogram conducted on 06/09/2024 showed aortic sclerosis without stenosis and no aortic regurgitation. Moderate tricuspid regurgitation. Mild pulmonic regurgitation. Pleural effusion present
Therapeutic anticoagulation will likely be started once cleared by surgery
Cardiology recommends changing from IV amiodarone to IV Lopressor after additional correction of potassium
-Essential hypertension:
Appreciate cardiology recommendations
Holding home hypertension meds -will consider resuming medications once patient is more hemodynamically stable postoperatively
Metoprolol tartrate 2.5 mg IV every 6
Cardiology recommend as needed hydralazine for additional BP control
-Mild cognitive impairment:
Monitoring
-S/p ostomy:
Ostomy on the left side
NGT removed
N.p.o. with sips/chips
Wound healing well, ostomy producing stool, maintain wound care
Colorectal surgery continues to follow
-Total right hip replacement on 05/30/2024
-Interstitial lung disease with bronchiectasis
-Past medical history of spontaneous pneumothorax
FULL CODE STATUS
DVT prophylaxis: Heparin sc
Stress ulcer prophylaxis: Famotidine
Imaging:
-Abdominal CT conducted on 06/07/2024:
New findings suggesting perforated bowel probable sigmoid colon with associated retroperitoneal and intraperitoneal free air, air-fluid levels suggesting abscess formation and extraluminal stool.
Mild small bowel dilatation probably ileus due to reactive change. New
Tiny bilateral pleural effusions. New
Too small to characterize hypodense left renal lesion likely a benign cyst.
Mild lingular bronchiectasis. Stable
Critical value: Free air.
-Chest x-ray conducted on 06/07/2024:
Endotracheal tube is present with its tip 6 cm above the rafiq.
-Echocardiogram conducted on 06/09/2024:
Normal biventricular size and systolic function without regional wall motion abnormality.
Mild to moderate mitral regurgitation.
Pleural effusion present.
No prior study available for comparison.
Anticipated Discharge: > 48 hours
Subjective/Interval History
-
Date of Service: June 14, 2024
Met with patient at the bedside. She appears forlorn and withdrawn. Moans in bed and does not use words to express herself if can be avoided. Patient vocalized that her abdomen still hurts but did not state anything else. She appears to be
immensely uncomfortable. Patient asked for a moist towel for her head.
Objective Data
-
Labs:
Laboratory Results
06/14/24
07:24
WBC 24.6 H
Hgb 9.1 L
Hct 27.0 L
Plt Count 226
Sodium 139
Potassium 3.1 L
Chloride 108 H
Carbon Dioxide 24
BUN 30 H
Creatinine 1.0
Glucose 213 H
Calcium 7.1 L
Total Bilirubin 1.1
AST 31
ALT 35
Alkaline Phosphatase 200 H
Vital Signs:
Vital Signs
Temp Pulse Resp BP Pulse Ox
97.3 F 70 18 169/73 92
06/14/24 15:05 06/14/24 15:05 06/14/24 15:05 06/14/24 15:05 06/14/24 15:05
I&O
06/13/24 06/14/24 06/15/24
06:59 06:59 06:59
Intake Total 4928.3 / 5122.5 4027.5 / 4027.5
Output Total 3980 / 3980 1902 / 1902
Balance 948.3 / 1142.5 2125.5 / 2125.5
Review of Systems
-
Unable to obtain full review of systems at this time due to: Acuity
History Source: Patient
Abdomen/GI: Reports Abdominal Pain and Pain
Psych: Reports Depressed and Sad
Physical Exam
-
General: Well Developed, Pain and Appears Chronically Ill
HEENT: Normocephalic and Atraumatic
Respiratory: Clear to Auscultation
Cardiac: S1/S2; Negative Murmur, Rub or JVD
Breast: Deferred by me
GI: Soft, Nontender and Ostomy
Rectal: Deferred by Provider
Genito-urinary: Deferred by me
Musculoskeletal: No Clubbing and No Cyanosis
Skin: Warm and Dry
Neuro: Awake
Psych: Depressed
[2024-06-14 08:01] LABS: Hemoglobin 9.1 g/dL (12.0-16.0); Mean Corp Hgb Conc. 33.7 g/dL (33.0-37.0); Mean Corpuscular Hgb 30.7 pg (27.0-31.0); Mean Corpuscular Volume 91.2 fL (81.0-99.0); Platelet Count 226 10^3/uL (130-400); Red Blood Cell Count 2.96 10^6/uL (4.20-5.40); Red Cell Dist. Width 13.3 % (11.5-14.5); White Blood Cell Count 24.6 10^3/uL (4.8-10.8)
[2024-06-14 08:31] LABS: ALT (SGPT) 35 U/L (0-35); AST (SGOT) 31 U/L (14-36); Albumin 2.1 g/dl (3.5-5.0); Alkaline Phosphatase 200 U/L (38-126); Blood Urea Nitrogen 30 mg/dl (7-17); Calcium 7.1 mg/dl (8.4-10.2); Carbon Dioxide 24 mmol/L (22-30); Chloride 108 mmol/L (98-107); Estimated Creatinine Clearance 47 ml/min; Glucose 213 mg/dl (70-99); Magnesium 1.6 mg/dl (1.6-2.3); Phosphorus 1.9 mg/dl (2.5-4.5); Potassium 3.1 mmol/L (3.5-5.1); Sodium 139 mmol/L (135-145); Total Bilirubin 1.1 mg/dl (0.2-1.3); Total Protein 4.7 g/dl (6.3-8.2); eGFR 57.66
--- NOTE | 2024-06-14 09:55 | W.PN.CRS1 ---
Today's Communication / Plan
-
swallow eval
TPN
wound care
Assessment/Plan
-
79-year-old female with PMH of HTN, HLD, interstitial lung disease with bronchiectasis, history of pneumonia multiple times, history of spontaneous pneumothorax x 2 who presents 8 days after right hip replacement; 4 days prior to admission, she
started to develop abdominal pain and nausea with decreased bowel function; the abdominal pain and nausea/vomiting continue to worsen; she denies any fevers, chest pain, or urinary symptoms; she does have dyspnea due to the abdominal pain; her last
colonoscopy was 2 years ago which she reports as normal (report not available to me); in the ED, her WBC was 9.3, CR 1.5 and a CTAP was done which shows moderate free air, extraluminal stool adjacent to the mid sigmoid colon with concern of sigmoid
perforation possibly due to diverticulitis
POD 7 ex lap, sigmoidectomy with end colostomy creation for perforated stercoral colitis; extensive washout ~9L for feculent peritonitis
06/12- CT A/P due to increasing abdominal pain did not show any abscesses or drainable collections (discussed with IR)
AFVSS
WBC 24.6 (18.9), Hgb 9.1 (9.8), Creatinine 1.0 (1.2)
�Trend WBC
�Swallow eval pending by speech, clears if passes with Ensure
-Start TPN
-K 3.1 (hypokalemia), Phosphorus 1.9 (hypophosphatemia)
-Wound RN for stoma care/midline wound care
-BID packing to midline wound with dressing changes (increased from daily)
�Continue IV Zosyn; gram-negative bacteremia, appreciate ID
�Pain control with Ofirmev and Dilaudid as needed
�A-fib with RVR, continue Amio drip, appreciate cardiology
�DVT PPx: subQ heparin
�Appreciate trick rodeo rider/hospitalist
-Dipso: eventual PM+R consult when getting closer to dispo for rehab eval
Subjective Data
Procedure
Exploratory laparotomy, lysis of his adhesions, sigmoidectomy, creation of end colostomy on 06/07/24
Subjective Data
Date of Service: June 14, 2024
Patient states she is nauseous. She is very thirsty. She still has some right sided abdominal pain. She has stool in her bag.
Objective Data
-
Vital Signs
Temp Pulse Resp BP Pulse Ox
98.7 F 66 18 168/82 95
06/14/24 07:05 06/14/24 07:05 06/14/24 07:05 06/14/24 07:05 06/14/24 07:05
Intake & Output
06/13/24 06/14/24 06/15/24
06:59 06:59 06:59
Intake Total 4928.3 / 5122.5 4027.5 / 4027.5
Output Total 3980 / 3980 1902 / 1902
Balance 948.3 / 1142.5 2125.5 / 2125.5
Intake:
Oral fluids 300 / 300
IV fluids (Total) 3758.3 / 3952.5 3127.1 / 3127.1
Amio Gtt 400.8 / 417.5 217.1 / 217.1
D5/0.9% Sodium Chloride 1,000 1100 / 1100
ml @ 110 mls/hr IV .Q9H11M LINDA
with KCl 20 Meq Rx#:[id number]
D5/0.9% Sodium Chloride 1,000 1979 / 2089 330 / 330
ml @ 110 mls/hr IV .Q9H6M LINDA
Rx#:[id number]
D5/0.9% Sodium Chloride 1,000 500 / 500
ml @ 70 mls/hr IV .[id number] LINDA
Rx#:[id number]
K 877.5 / 945.0 270.0 / 270.0
IV piggybacks 50 / 50 600.4 / 600.4
Amount instilled into GI Tube ( 1120 / 1120
Total)
[place] Sump 1120 / 1120
Output:
Liquid stool amount 125 / 125 50 / 50
Colostomy 125 / 125 50 / 50
Drain Output (Total) 2
Right Lower Abdomen Darius-
[place]
Gastrointestinal tube output ( 200 / 200
Total)
[place] S[place] 200 / 200
Urine, Ramon 3650 / 3650 400 / 400
Urine, Voided 1450 / 1450
Other:
Number of approximated SMALL 1
amounts of urine
How many times incontinent 1
SATURATED amount urine
Lab Results
06/14/24 07:24
06/14/24 07:24
Physical Exam
-
General: No Acute Distress and AOx3
Abdomen: Soft, Non Distended and Tender (RUQ/RLQ tenderness (mild))
Skin: Warm and Dry
Wound: Dressing Changed (c/d/i) and Dressing in Place
[2024-06-14] MEDS: NSS (PRESERVATIVE FREE) 8 ML IV (09:59)
[2024-06-14] MEDS: HEPARIN 5000 UNITS SC ×3 (09:59→23:35)
[2024-06-14] MEDS: PEPCID 20 MG IV (10:00)
--- NOTE | 2024-06-14 10:09 | W.PN.CD ---
Today's Communication / Plan
-
Stop IV amiodarone
Lopressor 2.5 mg IV every 6
Monitor blood pressures. Blood pressure likely higher this morning due to pain.
-Pain control
Impression / Plan
-
A/P: 79-year-old woman with history of hypertension, hypercholesterolemia, interstitial lung disease, bronchiectasis, history of spontaneous pneumothorax who underwent right hip replacement 1 week ago and then presented to [facility] with
bowel perforation requiring emergent laparotomy with colectomy and colostomy. She had paroxysms of AF currently in SR.
A-fib with RVR now in SR
-New diagnosis
-CHADSVASC 4 (age greater than 75, female, hypertension)
-Occurred in the postoperative setting after emergent laparotomy and patient on pressors.
-Off pressors.
-correct electrolyte abnormalities
-Start low-dose beta-norma
-Stop IV amio
-she currently is NPO
.
LONG. Creatinine 1.6. now improved to 1.2
-Nephrology consulted
Hypokalemia - K 3.1 . Management per nephrolgy and primary team
.
Postop emergent laparotomy/colectomy for bowel perforation.
-Management directed by colorectal surgery
.
Pulmonary. Patient with a history of pulmonary disease/interstitial lung disease/bronchiectasis and prior history of pneumothorax. Management directed by pulmonary/critical care
.
Hypertension. History of hypertension. elevted BP.
- can
Hip right hip replacement 1 week ago.
Subjective: remains confused
echo:
CONCLUSIONS
Normal biventricular size and systolic function without regional wall motion
abnormality.
Mild to moderate mitral regurgitation.
Pleural effusion present.
No prior study available for comparison.
Physical Exam
Vital Signs/Labs
Vital Signs
Temp Pulse Resp BP Pulse Ox
98.7 F 66 18 168/82 95
06/14/24 07:05 06/14/24 07:05 06/14/24 07:05 06/14/24 07:05 06/14/24 07:05
06/13/24 06/14/24 06/15/24
06:59 06:59 06:59
Actual Weight 75.2 kg 75 kg
06/14/24 07:24
06/14/24 07:24
PT 14.6 Sec (11.4-14.6) 06/07/24 14:37
INR 1.11 06/07/24 14:37
APTT 27.5 Sec (23.4-35.0) 06/07/24 14:37
Magnesium 1.6 mg/dl (1.6-2.3) 06/14/24 07:24
Physical Exam
Constitutional: Other (abd pain)
Cardiovascular: Rhythm & rate is regular
Respiratory: Wheeze Absent and Rhonchi Absent
GI: Other (distened. p[ost op ostomy)
Neuro/Psych: Alert
Data Reviewed
-
Date of Service: June 14, 2024
Medical Decision Making: Reviewed Test Results
Echo: Report Reviewed by me
Medical Tests (PFT, Pathology etc): Report Reviewed by me
Labs: Labs Reviewed by me
[2024-06-14 10:43] LABS: Triglycerides 341 mg/dl (10-149)
[2024-06-14 11:20] VITALS: BP 157/80
--- NOTE | 2024-06-14 11:28 | W.PN.NEPH.PH ---
Today's Communication / Plan
-
TPN initated by surgery
K repletion
GFR at baseline
Assessment/Plan
-
79-year-old female with PMH of HTN, HLD, interstitial lung disease with bronchiectasis, history of pneumonia multiple times, history of spontaneous pneumothorax x 2 who presents 8 days after right hip replacement;
Presents with� Colonic perforation s/p right hip replacement; status post colectomy with ostomy
Baseline creatinine 0.8 with admitting creatinine 1.5.
Impression.
Acute kidney injury in the setting of sepsis and hemodynamic.
Bowel perforation status post sigmoidectomy.
Hyponatremia.
Hypertension.
Status post total hip replacement May 30, 2024.
Interstitial lung disease..
Plan.
Surgery initiating TPN
follow BMP
creatinine 1.0
Potassium chloride given this a.m., will have additional K in TPN
follow UOP:1.4liters, weights stable
NGT per surgery
-
-
Date of Service: June 14, 2024
CC / HPI / ROS
-
Chief Complaint:
Abdominal pain
History of Present Illness:
Acute kidney injury secondary to sepsis and perforated viscus.
LONG/Cr stable 1.0
BP stable
Na up to 139
K low 3.[address]
nonoliguric
Review of Systems:
no CP/SOB
Nonoliguric. Weight is stable
Labs
-
Labs:
WBC 24.6 10^3/uL (4.8-10.8) H 06/14/24 07:24
RBC 2.96 10^6/uL (4.20-5.40) L 06/14/24 07:24
Hgb 9.1 g/dL (12.0-16.0) L 06/14/24 07:24
Hct 27.0 % (37.0-47.0) L 06/14/24 07:24
Plt Count 226 10^3/uL (130-400) 06/14/24 07:24
Sodium 139 mmol/L (135-145) 06/14/24 07:24
Potassium 3.1 mmol/L (3.5-5.1) L 06/14/24 07:24
Chloride 108 mmol/L (98-107) H 06/14/24 07:24
Carbon Dioxide 24 mmol/L (22-30) 06/14/24 07:24
BUN 30 mg/dl (7-17) H 06/14/24 07:24
Creatinine 1.0 mg/dL (0.6-1.0) 06/14/24 07:24
eGFR 57.66 06/14/24 07:24
Glucose 213 mg/dl (70-99) H 06/14/24 07:24
Calcium 7.1 mg/dl (8.4-10.2) L 06/14/24 07:24
Phosphorus 1.9 mg/dl (2.5-4.5) L 06/14/24 07:24
Albumin 2.1 g/dl (3.5-5.0) L 06/14/24 07:24
Physical Exam
-
Vital Signs:
Vital Signs
Temp Pulse Resp BP Pulse Ox
98.7 F 66 18 168/82 95
06/14/24 07:05 06/14/24 07:05 06/14/24 07:05 06/14/24 07:05 06/14/24 07:05
Cardiovascular:: Regular rate and rhythm
Respiratory:: Bilateral: Coarse
Lung Excursion:: Normal
Abdomen:: Nontender and Soft
Bowel Sounds:: None
Extremity Edema:: None: Bilateral:
Ramon Catheter: Yes
--- NOTE | 2024-06-14 11:35 | W.PN.ID1 ---
Date of Service
Date of Service: June 14, 2024
Today's Communication
- c/w with zosyn - increased dose to 4.5 gm IV q6hrs
- c/w micafungin
- has PICC, may consider a course of home IV antibiotics if unable to get drainage of the collection; if continued progression of leukocytosis and inability to place drain could consider return to the OR
Assessment / Plan
Bowel Perforation likely due to Stercoral colitis
GNR Bacteremia due to bowel perforation
S/p Exploratory laparotomy, lysis of adhesions, sigmoidectomy, creation of end-colostomy
Ileus
LONG
Recent right hip replacement
- now on TPN
- blood culture from 06/09 now also with a GNR in a delayed fashion - follow for ID
- repeat blood cultures x2 today
- 06/07 blood cultures both with anaerobe - bacteroides - source bowel perforation
- drain output remains minimal
- c/w with zosyn - increased dose to 4.5 gm IV q6hrs
- c/w micafungin
- has PICC, may consider a course of home IV antibiotics if unable to get drainage of the collection; if continued progression of leukocytosis and inability to place drain could consider return to the OR
follow clinically
Chief Complaint
-: Other (bowel perforation, secondary peritonitis)
Subjective / Review of Systems
'I feel better today' she is not specific about what is better 'just overall better'
afebrile
bp stable
no events overnight
started on TPN
Vital Signs / Physical Exam
Vital Signs
Vital Signs
Temp Pulse Resp BP Pulse Ox
98.7 F 66 18 168/82 95
06/14/24 07:05 06/14/24 07:05 06/14/24 07:05 06/14/24 07:05 06/14/24 07:05
Physical Exam
Constitutional: No Acute Distress
Cardiovascular: Regular Rate and S1/S2; Negative Murmur or Rub
Pulmonary: Clear and Symmetric; Negative Wheezes or Rales
Gastrointestinal: Soft, Non Tender, Non Distended, Normal Bowel Sounds and Other (stoma pink)
Skin: Warm and Dry; Negative Rash or Jaundice
Lines: Other (drain - serous)
Objective Data
Lab Data
Lab Results
06/14/24 07:24
06/14/24 07:24
PT 14.6 Sec (11.4-14.6) 06/07/24 14:37
INR 1.11 06/07/24 14:37
APTT 27.5 Sec (23.4-35.0) 06/07/24 14:37
Estimated Creat Clear 47 ml/min 06/14/24 07:24
Lactic Acid 1.9 mmol/L (0.7-2.0) 06/10/24 03:33
Total Bilirubin 1.1 mg/dl (0.2-1.3) 06/14/24 07:24
AST 31 U/L (14-36) 06/14/24 07:24
ALT 35 U/L (0-35) 06/14/24 07:24
Alkaline Phosphatase 200 U/L (38-126) H 06/14/24 07:24
Most recent labs reviewed.
Micro Results:
06/09/24 15:02 Blood Culture - Preliminary
Blood/Venous Gram negative bacilli
Gram Stain - Preliminary
06/14/24 09:05 Blood Culture - Pending
Blood/Venous
06/09/24 12:09 Blood Culture - Preliminary
Blood/Venous No Growth in 4 days- Final report to follow
06/07/24 10:26 Blood Culture - Preliminary
Blood/Venous Bacteroides uniformis
Gram Stain - Preliminary
06/07/24 10:27 Blood Culture - Preliminary
Blood/Venous Bacteroides uniformis
Gram Stain - Preliminary
06/07/24 23:30 MRSA Screen - Final
Nose No Methicillin Resistant Staphylococcus aureus isolated.
06/07/24 10:27 Urine Culture - Final
Urine No Significant Growth
06/07/24 09:19 Influenza Types A & B (EVI) - Final
Nasal Swab Negative for Influenza A & B, NAAT
Negative results must be combined with clinical observations
and patient history.
Nucleic Acid Amplification test (NAAT)performed on the
Transifex platform.
[2024-06-14 11:44] LABS: Glucose - Point of Care 201 mg/dl (70-99)
--- NOTE | 2024-06-14 11:50 | PTOTSP ---
ST Acute Care Evaluation
Pt currently presents with oral and pharyngeal parameters that are WFL for the initiation of pureed solids and thin liquids. Pt exhibits clinical signs of esophageal dysfunction as evidenced by eructation s/p ingestion of liquids, likely
attributable to pt's recent dobhoff for ~7 days.
Recommendations:
- Initiate a PO diet of pureed solids and thin liquids with meds whole with water. [Note: Surgery would like to start off with clear liquid diet.]
- Aspiration and reflux precautions: HOB upright for all PO intake and for 60 minutes after PO intake; small frequent meals; slow intake rate.
- COFFEE BAR ATTENDANT to f/u re: diet tolerance, trial diet upgrades once cleared by surgery, and to determine if pt would benefit from an instrumental swallow study.
[2024-06-14] MEDS: MYCAMINE 105 MG IV (11:58)
[2024-06-14] MEDS: NOVOLOG FLEXPEN-LOW RESISTANCE 2 UNITS SC (12:18)
[2024-06-14] MEDS: POTASSIUM PHOSPHATE 259.0909 MEQ IV (12:38)
[2024-06-14] MEDS: LOPRESSOR 2.5 MG IV ×3 (13:43→23:35)
[2024-06-14] MEDS: ZOSYN 100 IV ×3 (13:45→23:35)
[2024-06-14 15:05] VITALS: BP 169/73
--- NOTE | 2024-06-14 15:30 | WOUNDNOTE ---
WON RN NOTE: Changed appliance today, reviewed emptying with patient and had her open and close tail end of pouch. Teaching done regarding skin care and changing appliance. Patient turned to sides, pads and draw sheet soaked in urine, Purwick in
use. Skin care given and pad changed, repositioned Purwick. Sacrum remains intact, sacral silicone foam changed. Pillows in use under calves, heels offloaded. Repositioned patient to L semi side lying position. Nurse Nakita aware of the above. Will
call [facility] for additional supplies.
--- NOTE | 2024-06-14 16:13 | CM ---
Patient seen at bedside resting comfortably. Patent may benefit need PM&R assessment and rehab prior to discharge. CM will continue to follow for discharge planning needs.
Plan;Rehab vs SNF
[2024-06-14 16:50] LABS: Glucose - Point of Care 183 mg/dl (70-99)
[2024-06-14] MEDS: NOVOLOG FLEXPEN-LOW RESISTANCE 1 UNITS SC (17:01)
[2024-06-14 20:00] VITALS: BP 170/82
[2024-06-14 21:23] LABS: Glucose - Point of Care 185 mg/dl (70-99)
[2024-06-14] MEDS: Parenteral Nutrition, Central 930 IV (21:40)
[2024-06-14 23:14] VITALS: BP 158/72
[2024-06-14 23:56] LABS: Glucose - Point of Care 203 mg/dl (70-99)
[2024-06-15] VITALS (15 sets, daily range): BP systolic 62–169; BP diastolic 66–88; BMI 24.8
[2024-06-15] MEDS: NOVOLOG FLEXPEN-LOW RESISTANCE 2 UNITS SC ×4 (00:01→17:57)
[2024-06-15] MEDS: ZOFRAN 4 MG IV (02:47)
[2024-06-15] MEDS: DILAUDID 0.5 MG IV ×6 (02:48→17:54)
[2024-06-15 05:13] LABS: Hematocrit 24.9 % (37.0-47.0); Hemoglobin 8.6 g/dL (12.0-16.0); Mean Corp Hgb Conc. 34.5 g/dL (33.0-37.0); Mean Corpuscular Hgb 30.8 pg (27.0-31.0); Mean Corpuscular Volume 89.2 fL (81.0-99.0); Mean Platelet Volume 11.3 fL (7.4-10.4); Platelet Count 243 10^3/uL (130-400); Red Blood Cell Count 2.79 10^6/uL (4.20-5.40); Red Cell Dist. Width 13.1 % (11.5-14.5); White Blood Cell Count 29.1 10^3/uL (4.8-10.8)
[2024-06-15 05:28] LABS: Glucose - Point of Care 231 mg/dl (70-99)
[2024-06-15] MEDS: ZOSYN 100 IV ×4 (05:28→23:00)
[2024-06-15] MEDS: LOPRESSOR 2.5 MG IV ×4 (05:29→23:05)
[2024-06-15 05:39] LABS: Blood Urea Nitrogen 27 mg/dl (7-17); Calcium 7.1 mg/dl (8.4-10.2); Carbon Dioxide 26 mmol/L (22-30); Chloride 110 mmol/L (98-107); Estimated Creatinine Clearance 47 ml/min; Glucose 233 mg/dl (70-99); Magnesium 1.5 mg/dl (1.6-2.3); Sodium 141 mmol/L (135-145); eGFR 57.66
--- NOTE | 2024-06-15 06:11 | W.PN.UPDATE ---
Update Note
Progress Note Update
lab results noted, repleted K and mag. patient with no new complaints.
[2024-06-15] MEDS: KCL 100 IV (06:32)
--- NOTE | 2024-06-15 07:04 | W.PN.UPDATE ---
Update Note
Progress Note Update
79-year-old female s/p R [place] 05/30/2024 (POD 16) with Dr. Lyon with postop bowel perforation s/p exploratory laparotomy, lysis of adhesions, sigmoidectomy, creation of end-colostomy with Dr. Moreno 06/07/2024. She is resting in bed this morning,
and does appear to have some abdominal discomfort. She reports she is 'speechless' this morning. She denies any pain in the hip at present.
She has been started on TPN by surgical team. She was found to have a subhepatic collection which may end up being aspirated under the direction of her surgical team. She is currently on Zosyn and micafungin, and PICC is in place.
PE: Right hip incision with steri-strips intact. No erythema, warmth, or active drainage. Mild diffuse swelling and minimal ecchymosis. Logroll without pain. Gentle ROM hip without pain. Calf is soft and nontender. NVI distally. Able to wiggle
toes and dorsi/plantar flex ankle without difficulty.
Appreciate all teams involved with care of this patient. Continue with formal physical therapy when medically able, THP's. DVT ppx per primary team. Orthopedic surgery will continue to follow along.
--- NOTE | 2024-06-15 07:18 | W.PN.HOSP.TC ---
Addendum entered and electronically signed by Kaley Huynh MD 06/15/24 15:36:
I saw and evaluated the patient independently. I reviewed the resident�s note and agree with findings and plan as documented by Dr. Charlton.
GENERAL: elderly, frail, ill appearing female -spoke more today than all week
HEENT: NC/AT--O2 NC --NGT removed
HEART: regular rate and rhythm, +S1, +S2
LUNGS : clear to auscultation bilaterally
ABDOM: soft, nontender, nondistended, + bowel sounds, +colostomy with stool--PRINCE drain in place--right sided open wound
EXT: no cyanosis, clubbing, or edema--fresh post op hip replacement
NEUROLOGIC: grossly intact
: cruz removed
Pt seems to me to have more than mild cognitive impairment. Acting more like dementia. Perhaps covered well at home but events of recent weeks may have exacerbated issues. Perhaps 2 surgeries in close proximity (hip and now bowel) are affecting her
mentation? People with cognitive issues usually take a long time post op to return to 'normal/baseline'. She will NOT SPEAK to me or my team. She moans and generally appears unwell. Points at what is bothering her. Would limit pain meds if we can.
Psych consult might be helpful.
Septic shock from Acute sigmoid bowel perforation with acute surgical abdomen--unclear if related to pain medication given for total right hip replacement 05/30/24 or something else--lactic acid improved--off pressors--s/p exploratory laparotomy,
sigmoidectomy, and creation of end colostomy--cont IVF--NGT removed--pain control as able--OOB--apprec CRS/ID/toll line repairer--cont zosyn/micafungin--follow cultures--wbc increasing, CT scan again shows subhepatic fluid collection--going to IR for
aspiration--await cultures--now on TPN
Hyponatremia---resolved--apprec renal--likely due to sepsis/IVF resuscitation
Hypokalemia--replete
anemia--likely due to sepsis/dilutional from IVF/blood draws--consider blood transfusion but will need blood consent--pt not able to consent for herself
Acute kidney injury secondary to septic shock/bowel perforation/infection/acute process--improved--apprec renal--lactates improved
Atrial fibrillation with rapid ventricular response--apprec cards--new diagnosis--consideration for heparin drip with oral anticoagulation eventually--s/p amio--cont beta blockers--Echocardiogram conducted on 06/09/2024 showed aortic sclerosis
without stenosis and no aortic regurgitation. Moderate tricuspid regurgitation. Mild pulmonic regurgitation. Pleural effusion present
Essential hypertension--restart meds as BP allows
Mild cognitive impairment--Monitoring--pt refuses to engage in conversation--?dementia vs acuity
Total right hip replacement on 05/30/2024--apprec ortho--enrique still in--pt refused to have ortho remove--will need PT/OT--likely SNF
Interstitial lung disease with bronchiectasis--Past medical history of spontaneous pneumothorax--nothing current
code status--Full Code
DVT proph-- Heparin sc
Original Note:
Today's Communication/Plan
-
Patient is critically ill. WBCs at 29.1 and trending upwards. Continuing current abx. Follow-up Abdominal/Pelvis CT ordered. The patient was hypokalemic and hypomagnesemic. It may be helplful to consult psychiatry as some of the patient's
presentation suggest an exacerbation of underlying dementia.
Assessment / Plan
Assessment / Plan
Assessment/Plan:
-Acute sigmoid bowel perforation with acute surgical abdomen:
Patient's lactic acid was 4.3 in the emergency department
The patient was hyponatremic with a sodium of 123, hypochloremic at 93, low bicarb at 18, elevated BUN at 55, and an elevated creatinine at 1.5 in the emergency department
An abdominal CT showed findings suggesting perforated bowel probable at sigmoid colon with associated retroperitoneal and intraperitoneal free air, air-fluid level suggesting abscess formation and extraluminal stool.
Surgery and colorectal surgery consulted
IV fluid support given
Patient is postop from exploratory laparotomy, sigmoidectomy, and creation of end colostomy
Hydromorphone/Zofran as needed
Continue IV Zosyn -white blood cells at 28.5 on 06/10/2024, on 06/11/2024 her white blood cell count was 26.3, on 06/13/2024 her white blood cell count was 18.9, and on 06/15/2024 her white blood cell count was at 29.1
Appreciate infectious diseases recommendations�continue Zosyn and micafungin -patient has a PICC line and we may consider home IV antibiotics if indicated
The patient has been extubated and is on room air
Levophed has been weaned down and discontinued
The patient has been downgraded to telemetry as she no longer is on pressors and is not intubated.
TPN initiated by surgery -TPN continued
Follow-up CT of the abdomen and pelvis ordered on 06/15/2024
-Left hand swelling:
Patient had left hand swelling on 06/14/2024
Bilateral upper extremity ultrasound ordered -negative for bilateral upper extremity deep venous thrombosis
-Hyponatremia:
Patient was found to be hyponatremic with a sodium of 123 in the emergency department.
Sodium is 129 on 06/08/2024 -is 128 on 06/09/2024, is 132 on 06/10/2024, 139 on 06/14/2019
GFR at baseline
Appreciate nephrology recommendations
Nephrology has recommended reducing IV fluids.
-Hypokalemia:
The patient had hypokalemia at 3.0 on 06/13/2024 and 3.1 on 06/13/2024, 3.1 on 06/14/24, potassium was 3.0 on 06/15/2024
More potassium repleted on 06/15/2024�continue to follow with labs
-Hypomagnesemia:
Patient had a magnesium level of 1.5 on 06/15/2024 -repleted
Continue to follow labs
-Acute kidney injury secondary to bowel perforation/infection/acute process:
Patient's baseline creatinine is 0.8 taken on 05/12/2024
Lactic acid was 4.3 in the emergency department
On presentation to the emergency department on 06/07/2024 the patient had a creatinine of 1.5 indicating acute kidney injury.
On 06/08/2024 creatinine is 2.0 continue to trend creatinine -was 2.4 at 12: 02 on 06/08/2024 and has begun trending down on 06/09/2024 at 2.2, remained 2.2 on 06/10/2024, creatinine was 1.2 on 06/13/2024
Was on a bicarb infusion but now is on D5 normal saline
Atrial fibrillation with rapid ventricular response:
New diagnosis found postoperatively.
[id number] of 4 due to the age being greater than 75, female, hypertension
Patient is now back in sinus rhythm after receiving Amio
Will start low-dose beta-norma when blood pressure will allow.
Echocardiogram conducted on 06/09/2024 showed aortic sclerosis without stenosis and no aortic regurgitation. Moderate tricuspid regurgitation. Mild pulmonic regurgitation. Pleural effusion present
Therapeutic anticoagulation will likely be started once cleared by surgery
Cardiology recommends changing from IV amiodarone to IV Lopressor after additional correction of potassium
-Essential hypertension:
Appreciate cardiology recommendations
Holding home hypertension meds -will consider resuming medications once patient is more hemodynamically stable postoperatively
Metoprolol tartrate 2.5 mg IV every 6
Cardiology recommend as needed hydralazine for additional BP control
-Mild cognitive impairment:
Monitoring
-S/p ostomy:
Ostomy on the left side
NGT removed
N.p.o. with sips/chips
Wound healing well, ostomy producing stool, maintain wound care
Colorectal surgery continues to follow
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
appreciate ortho recommendations
enrique removed
will need PT/OT--likely SNF
-Interstitial lung disease with bronchiectasis
-Past medical history of spontaneous pneumothorax
FULL CODE STATUS
DVT prophylaxis: Heparin sc
Stress ulcer prophylaxis: Famotidine
Imaging:
-Abdominal CT conducted on 06/07/2024:
New findings suggesting perforated bowel probable sigmoid colon with associated retroperitoneal and intraperitoneal free air, air-fluid levels suggesting abscess formation and extraluminal stool.
Mild small bowel dilatation probably ileus due to reactive change. New
Tiny bilateral pleural effusions. New
Too small to characterize hypodense left renal lesion likely a benign cyst.
Mild lingular bronchiectasis. Stable
Critical value: Free air.
-Chest x-ray conducted on 06/07/2024:
Endotracheal tube is present with its tip 6 cm above the rafiq.
-Echocardiogram conducted on 06/09/2024:
Normal biventricular size and systolic function without regional wall motion abnormality.
Mild to moderate mitral regurgitation.
Pleural effusion present.
No prior study available for comparison.
Anticipated Discharge: > 48 hours
Subjective/Interval History
-
Date of Service: June 15, 2024
Met with patient at the bedside. She appears immensely uncomfortable and is moaning in the bed laying down. When asked how she feels she states that 'my stomach hurts.' When asked if anything else is bothering her she says 'yes' and then
reiterates that her stomach hurts.
Objective Data
-
Labs:
Laboratory Results
06/15/24
04:51
WBC 29.1 H
Hgb 8.6 L
Hct 24.9 L
Plt Count 243
Sodium 141
Potassium 3.0 L
Chloride 110 H
Carbon Dioxide 26
BUN 27 H
Creatinine 1.0
Glucose 233 H
Calcium 7.1 L
Vital Signs:
Vital Signs
Temp Pulse Resp BP Pulse Ox
97.7 F 69 20 167/78 95
06/15/24 03:00 06/15/24 05:29 06/15/24 03:00 06/15/24 05:29 06/15/24 03:00
I&O
06/14/24 06/15/24 06/16/24
06:59 06:59 06:59
Intake Total 4027.5 / 4027.5 3395 / 3395
Output Total 1902 / 1902 3975 / 3975
Balance 2125.5 / 2125.5 -580 / -580
Review of Systems
-
Unable to obtain full review of systems at this time due to: Acuity
History Source: Patient
Constitutional: Reports Weakness
Abdomen/GI: Reports Abdominal Pain and Pain
Physical Exam
-
General: Well Developed, Well Nourished and Pain
HEENT: Normocephalic
Respiratory: Clear to Auscultation
Cardiac: S1/S2; Negative Murmur, Rub or JVD
Breast: Deferred by me
GI: Soft, Tender and Other
Rectal: Deferred by Provider
Genito-urinary: Deferred by me
Musculoskeletal: No Clubbing, No Cyanosis and No Edema
Skin: Warm, Dry and Rash
Neuro: Awake, Alert, Oriented and AO x 3
Psych: Calm
[2024-06-15] MEDS: MAGNESIUM SULFATE 102 GRAMS IV (07:45)
--- NOTE | 2024-06-15 07:55 | PTCARENOTE ---
labs resulted - informed CHIEF STATION ENGINEER. new orders for and lauro sterling. see MAR
--- NOTE | 2024-06-15 08:34 | W.PN.CRS1 ---
Today's Communication / Plan
-
CT A/P
TPN
NPO
Assessment/Plan
-
79-year-old female with PMH of HTN, HLD, interstitial lung disease with bronchiectasis, history of pneumonia multiple times, history of spontaneous pneumothorax x 2 who presents 8 days after right hip replacement; 4 days prior to admission, she
started to develop abdominal pain and nausea with decreased bowel function; the abdominal pain and nausea/vomiting continue to worsen; she denies any fevers, chest pain, or urinary symptoms; she does have dyspnea due to the abdominal pain; her last
colonoscopy was 2 years ago which she reports as normal (report not available to me); in the ED, her WBC was 9.3, CR 1.5 and a CTAP was done which shows moderate free air, extraluminal stool adjacent to the mid sigmoid colon with concern of sigmoid
perforation possibly due to diverticulitis
POD 8 ex lap, sigmoidectomy with end colostomy creation for perforated stercoral colitis; extensive washout ~9L for feculent peritonitis
06/12- CT A/P due to increasing abdominal pain did not show any abscesses or drainable collections (discussed with IR)
AFVSS
WBC 19.1 (24.6), Hgb 8.6 (9.1), Creatinine 1.0 (1.0)
�CT A/P with oral/IV/rectal contrast given increase in WBC
-Maintain PRINCE drain
�On clears, will make NPO for now
-Start TPN
-Wound RN for stoma care/midline wound care
-BID packing to midline wound with dressing changes (increased from daily)
�Continue IV Zosyn; gram-negative bacteremia, appreciate ID
�Pain control with Ofirmev and Dilaudid as needed
�A-fib with RVR, continue Amio drip, appreciate cardiology
�DVT PPx: subQ heparin
�Appreciate spiritual counselor/hospitalist
-Dipso: eventual PM+R consult when getting closer to dispo for rehab eval
Subjective Data
Procedure
Exploratory laparotomy, lysis of his adhesions, sigmoidectomy, creation of end colostomy on 06/07/24
Subjective Data
Date of Service: June 15, 2024
Patient states she is in pain. She is nauseous. She has no other complaints. She says she is 'speechless'.
Objective Data
-
Vital Signs
Temp Pulse Resp BP Pulse Ox
97.9 F 65 16 169/75 95
06/15/24 07:00 06/15/24 07:00 06/15/24 07:00 06/15/24 07:00 06/15/24 07:00
Intake & Output
06/14/24 06/15/24 06/16/24
06:59 06:59 06:59
Intake Total 4027.5 / 4027.5 3395 / 3395
Output Total 1902 / 1902 3975 / 3975
Balance 2125.5 / 2125.5 -580 / -580
Intake:
Oral fluids 300 / 300
IV fluids (Total) 3127.1 / 3127.1 2540 / 2540
Amio Gtt 217.1 / 217.1
D5/0.9% Sodium Chloride 1,000 1100 / 1100
ml @ 110 mls/hr IV .Q9H11M LINDA
with KCl 20 Meq Rx#:[id number]
D5/0.9% Sodium Chloride 1,000 330 / 330
ml @ 110 mls/hr IV .Q9H6M LINDA
Rx#:[id number]
K 270.0 / 270.0
IV piggybacks 600.4 / 600.4 505 / 505
TPN/PPN 350 / 350
Output:
Liquid stool amount 50 / 50 295 / 295
Colostomy 50 / 50 295 / 295
Drain Output (Total)
Right Lower Abdomen Darius-
[place]
Urine, Ramon 400 / 400
Urine, Voided 1450 / 1450 3650 / 3650
Other:
Number of approximated SMALL 1
amounts of urine
How many times incontinent 1
SATURATED amount urine
Lab Results
06/15/24 04:51
06/15/24 04:51
Physical Exam
-
General: No Acute Distress
Abdomen: Non Distended, Tender (right side of incision) and Other (midline wound with brown purulent discharge, removed more midline enrique. Wound repacked with gauze and redressed. PRINCE drain with brown murky fluid. )
Skin: Warm and Dry
[2024-06-15] MEDS: NSS (PRESERVATIVE FREE) 8 ML IV (08:44)
[2024-06-15] MEDS: PEPCID 20 MG IV (08:44)
[2024-06-15] MEDS: HEPARIN 5000 UNITS SC ×3 (08:47→23:00)
[2024-06-15] MEDS: OMNIPAQUE 50 ML PO (08:48)
[2024-06-15 09:13] LABS: % Basophils 0.4 % (0-2); % Eosinophils 0.1 % (0-6); % Immature Granulocytes 3.2 % (0-0.5); % Lymphocytes 2.8 % (20.5-51.1); % Monocytes 2.2 % (1.7-9.3); % Neutrophils 91.3 % (42.2-75.2); Absolute Basophils 0.1 10^3/uL (0-0.2); Absolute Immature Granulocytes 0.9 10^3/uL (0-0.05); Absolute Lymphocytes 0.8 10^3/uL (1.2-3.4); Absolute Monocytes 0.6 10^3/uL (0.1-0.6); Absolute Neutrophils 25.7 10^3/uL (1.4-6.5); Nucleated Red Blood Cells % 0 %
--- NOTE | 2024-06-15 09:18 | W.PN.NEPH.PH ---
Today's Communication / Plan
-
follow BMP
Assessment/Plan
-
79-year-old female with PMH of HTN, HLD, interstitial lung disease with bronchiectasis, history of pneumonia multiple times, history of spontaneous pneumothorax x 2 who presents 8 days after right hip replacement;
Presents with� Colonic perforation s/p right hip replacement; status post colectomy with ostomy
Baseline creatinine 0.8 with admitting creatinine 1.5.
Impression.
Acute kidney injury in the setting of sepsis and hemodynamic.
Bowel perforation status post sigmoidectomy.
Hyponatremia.
Hypertension.
Status post total hip replacement May 30, 2024.
Interstitial lung disease..
Plan.
TPN per surgery
follow BMP
replete K/Mag
follow BMP
for repeat CT with IV contrast
-
-
Date of Service: June 15, 2024
CC / HPI / ROS
-
Chief Complaint:
Abdominal pain
History of Present Illness:
Acute kidney injury secondary to sepsis and perforated viscus.
LONG/Cr stable 1.0
BP stable
Na normal
K low 3.0
Mag low
on TPN per colorectal surgery
nonoliguric
Review of Systems:
complains of generalized pain, unable to describe
Nonoliguric. Weight is stable
Labs
-
Labs:
WBC 29.1 10^3/uL (4.8-10.8) H 06/15/24 04:51
RBC 2.79 10^6/uL (4.20-5.40) L 06/15/24 04:51
Hgb 8.6 g/dL (12.0-16.0) L 06/15/24 04:51
Hct 24.9 % (37.0-47.0) L 06/15/24 04:51
Plt Count 243 10^3/uL (130-400) 06/15/24 04:51
Sodium 141 mmol/L (135-145) 06/15/24 04:51
Potassium 3.0 mmol/L (3.5-5.1) L 06/15/24 04:51
Chloride 110 mmol/L (98-107) H 06/15/24 04:51
Carbon Dioxide 26 mmol/L (22-30) 06/15/24 04:51
BUN 27 mg/dl (7-17) H 06/15/24 04:51
Creatinine 1.0 mg/dL (0.6-1.0) 06/15/24 04:51
eGFR 57.66 06/15/24 04:51
Glucose 233 mg/dl (70-99) H 06/15/24 04:51
Calcium 7.1 mg/dl (8.4-10.2) L 06/15/24 04:51
Phosphorus 1.9 mg/dl (2.5-4.5) L 06/14/24 07:24
Albumin 2.1 g/dl (3.5-5.0) L 06/14/24 07:24
Physical Exam
-
Vital Signs:
Vital Signs
Temp Pulse Resp BP Pulse Ox
97.9 F 65 16 169/75 95
06/15/24 07:00 06/15/24 07:00 06/15/24 07:00 06/15/24 07:00 06/15/24 07:00
Cardiovascular:: Regular rate and rhythm
Respiratory:: Bilateral: Coarse
Lung Excursion:: Normal
Abdomen:: Nontender and Soft
Bowel Sounds:: Normal
Extremity Edema:: None: Bilateral:
--- NOTE | 2024-06-15 09:36 | W.PN.CD ---
Addendum entered and electronically signed by Nabeel Og MD 06/15/24 10:38:
I saw and examined the patient.
The INSPECTOR PACKER GLASS CONTAINER's note was reviewed and I agree with the note.
Comment:
79-year-old woman with history of hypertension, hypercholesterolemia, interstitial lung disease, bronchiectasis, history of spontaneous pneumothorax who underwent right hip replacement 1 week prior to this admit and then presented to [facility] with bowel perforation requiring emergent laparotomy with colectomy and colostomy. Cardiology was consulted for new onset paroxysmal AF, initially treated with IV Amio, currently in sinus rhythm on IV Metoprolol (NPO). Exam today with very
ill-appearing woman, CV exam RRR, no murmurs, trace LE edema. Complaining of abdominal pain. She is now back in NSR. Paroxysms of AF likely due to critical illness. She is not on AC due to possible need for further abdominal procedures. We will
continue to follow peripherally. Please let us know when her NPO status resolves so that we can transition meds to PO and start AC when safe.
Original Note:
Today's Communication / Plan
-
-continue IV metoprolol
Impression / Plan
-
A/P: 79-year-old woman with history of hypertension, hypercholesterolemia, interstitial lung disease, bronchiectasis, history of spontaneous pneumothorax who underwent right hip replacement 1 week prior to this admit and then presented to [facility] with bowel perforation requiring emergent laparotomy with colectomy and colostomy. She had paroxysms of AF currently in SR.
A-fib with RVR now in SR
-New diagnosis
-CHADSVASC 4 (age greater than 75, female, hypertension). Not on AC at this time in this patient with recent surgery, anemia, possible need for more procedures?
-Occurred in the postoperative setting after emergent laparotomy and patient on pressors, now off pressors.
-correct electrolyte abnormalities- K+ and mag being replaced, monitor closely
-now off IV amiodarone. Continue IV metoprolol.
-she currently is NPO
LONG:
-resolved
-renal on board
Hypokalemia, hypomagnesemia:
-management per primary and nephrology- replacements ordered this AM
-monitor closely
Postop emergent laparotomy/colectomy for bowel perforation.
-Management directed by colorectal surgery
-for repeat CT scan today
Pulmonary- Patient with a history of pulmonary disease/interstitial lung disease/bronchiectasis and prior history of pneumothorax:
-pulm/crit care signed off
Hypertension:
-BP's elevated. She has pain. On CCB as OP.
-continue IV metoprolol, can add other meds if needed.
Recent Hip right hip replacement:
-ortho following
Subjective:
Has some abdominal pain and is tired
echo:
CONCLUSIONS
Normal biventricular size and systolic function without regional wall motion
abnormality.
Mild to moderate mitral regurgitation.
Pleural effusion present.
No prior study available for comparison.
Physical Exam
Vital Signs/Labs
Vital Signs
Temp Pulse Resp BP Pulse Ox
97.9 F 65 16 169/75 95
06/15/24 07:00 06/15/24 07:00 06/15/24 07:00 06/15/24 07:00 06/15/24 07:00
06/14/24 06/15/24 06/16/24
06:59 06:59 06:59
Actual Weight 75 kg 74 kg
06/15/24 04:51
06/15/24 04:51
PT 14.6 Sec (11.4-14.6) 06/07/24 14:37
INR 1.11 06/07/24 14:37
APTT 27.5 Sec (23.4-35.0) 06/07/24 14:37
Magnesium 1.5 mg/dl (1.6-2.3) L 06/15/24 04:51
Triglycerides Cancelled 02/25/25 09:48
Physical Exam
Constitutional: No acute distress
EENT: Anicteric
Cardiovascular: Rhythm & rate is regular
Respiratory: Respiratory effort normal and Lungs clear to auscul.
Neuro/Psych: Alert (tired)
Data Reviewed
-
Date of Service: June 15, 2024
EKG: Other (tele SR)
[2024-06-15 09:41] LABS: Glycohemoglobin (HgbA1c) 5.7 % (4.0-5.6)
[2024-06-15] MEDS: BENADRYL 25 MG IV (09:47)
[2024-06-15] MEDS: DECADRON 10 MG IV (09:49)
--- NOTE | 2024-06-15 10:14 | W.PN.ID1 ---
Date of Service
Date of Service: June 15, 2024
Today's Communication
follow up repeat CT
Assessment / Plan
Bowel Perforation likely due to Stercoral colitis
GNR Bacteremia due to bowel perforation
S/p Exploratory laparotomy, lysis of adhesions, sigmoidectomy, creation of end-colostomy
Ileus
LONG
Recent right hip replacement
- now on TPN
- blood culture from 06/09 now also with a sensitive E coli
- repeat blood cultures x2 06/15 no growth to date
- 06/07 blood cultures both with anaerobe - bacteroides - source bowel perforation
- drain output remains minimal
- will follow up repeat CT
- c/w with zosyn
- c/w micafungin
- has PICC, may consider a course of home IV antibiotics if unable to get drainage of the collection; if continued progression of leukocytosis and inability to place drain could consider return to the OR
follow clinically
Chief Complaint
-: Other (bowel perforation, secondary peritonitis)
Subjective / Review of Systems
afebrile
bp hypertensive
'I feel fine' but pale and appears withdrawn
Vital Signs / Physical Exam
Vital Signs
Vital Signs
Temp Pulse Resp BP Pulse Ox
97.9 F 65 16 169/75 95
06/15/24 07:00 06/15/24 07:00 06/15/24 07:00 06/15/24 07:00 06/15/24 07:00
Physical Exam
Constitutional: No Acute Distress
Cardiovascular: Regular Rate and S1/S2; Negative Murmur or Rub
Pulmonary: Clear and Symmetric; Negative Wheezes or Rales
Gastrointestinal: Soft, Non Tender, Non Distended, Normal Bowel Sounds and Other (stoma pink with some soft, brown output)
Skin: Warm and Dry; Negative Rash or Jaundice
Objective Data
Lab Data
Lab Results
06/15/24 04:51
06/15/24 04:51
PT 14.6 Sec (11.4-14.6) 06/07/24 14:37
INR 1.11 06/07/24 14:37
APTT 27.5 Sec (23.4-35.0) 06/07/24 14:37
Estimated Creat Clear 47 ml/min 06/15/24 04:51
Lactic Acid 1.9 mmol/L (0.7-2.0) 06/10/24 03:33
Total Bilirubin 1.1 mg/dl (0.2-1.3) 06/14/24 07:24
AST 31 U/L (14-36) 06/14/24 07:24
ALT 35 U/L (0-35) 06/14/24 07:24
Alkaline Phosphatase 200 U/L (38-126) H 06/14/24 07:24
Most recent labs reviewed.
Micro Results:
06/14/24 09:05 Blood Culture - Preliminary
Blood/Venous No Growth in 24 hours- Final report to follow
06/09/24 15:02 Blood Culture - Preliminary
Blood/Venous Escherichia coli
Gram Stain - Preliminary
06/07/24 10:27 Blood Culture - Final
Blood/Venous Bacteroides uniformis
Gram Stain - Final
06/07/24 10:26 Blood Culture - Final
Blood/Venous Bacteroides uniformis
Gram Stain - Final
06/14/24 12:56 Blood Culture - Pending
Blood/Venous
06/09/24 12:09 Blood Culture - Final
Blood/Venous No Growth - Final Report
06/14/24 12:22 Blood Culture - Pending
Blood/Venous
06/07/24 23:30 MRSA Screen - Final
Nose No Methicillin Resistant Staphylococcus aureus isolated.
06/07/24 10:27 Urine Culture - Final
Urine No Significant Growth
06/07/24 09:19 Influenza Types A & B (EVI) - Final
Nasal Swab Negative for Influenza A & B, NAAT
Negative results must be combined with clinical observations
and patient history.
Nucleic Acid Amplification test (NAAT)performed on the
[employer] platform.
[2024-06-15] MEDS: DILAUDID 0.25 MG IV (10:46)
[2024-06-15] MEDS: MYCAMINE 105 MG IV (10:46)
[2024-06-15 12:18] LABS: Glucose - Point of Care 240 mg/dl (70-99)
--- NOTE | 2024-06-15 15:01 | CM ---
Patient seen at bedside, with physicians. Patient somewhat responsive in process of transferring from strecher to bed with nursing. Patient c/o pain and nursing assisting. CM will continue to follow for discharge planning needs.
Plan; SNF vs Rehab pending medical treatment plan
--- NOTE | 2024-06-15 17:28 | PTCARENOTE ---
Pt arrived back from IR s/p PRINCE drain placement. Pt has R posterior PRINCE drain in place, dressing C/D/I, draining purulent drainage.
[2024-06-15 17:58] LABS: Glucose - Point of Care 229 mg/dl (70-99)
[2024-06-15] MEDS: TYLENOL 650 MG PO (20:16)
[2024-06-15] MEDS: Parenteral Nutrition, Central 1310 IV (21:20)
[2024-06-16] VITALS (9 sets, daily range): BP systolic 61–173; BP diastolic 63–89; BMI 24.5
[2024-06-16 00:03] LABS: Glucose - Point of Care 184 mg/dl (70-99)
[2024-06-16] MEDS: NOVOLOG FLEXPEN-LOW RESISTANCE 1 UNITS SC (00:25)
[2024-06-16] MEDS: DILAUDID 0.5 MG IV ×5 (01:28→22:58)
[2024-06-16 05:43] LABS: Blood Urea Nitrogen 35 mg/dl (7-17); Calcium 7.6 mg/dl (8.4-10.2); Carbon Dioxide 27 mmol/L (22-30); Chloride 105 mmol/L (98-107); Estimated Creatinine Clearance 52 ml/min; Glucose 279 mg/dl (70-99); Magnesium 1.8 mg/dl (1.6-2.3); Sodium 139 mmol/L (135-145); eGFR > 60.00
[2024-06-16] MEDS: LOPRESSOR 2.5 MG IV ×3 (06:05→17:28)
[2024-06-16] MEDS: ZOSYN 100 IV ×3 (06:05→17:28)
[2024-06-16 06:08] LABS: Glucose - Point of Care 321 mg/dl (70-99)
[2024-06-16] MEDS: NOVOLOG FLEXPEN-LOW RESISTANCE 4 UNITS SC (06:12)
--- NOTE | 2024-06-16 07:22 | W.PN.UPDATE ---
Update Note
Progress Note Update
Status post right total hip arthroplasty May 30, [address] Lyon. Patient unfortunately sustained bowel perforation and underwent exploratory lap under direction of Dr. Moreno June 07, 2024. Yesterday she went to IR for drainage
intra-abdominal fluid. ID has patient on Zosyn/Microfungin. Patient restless this morning. She is afebrile and vital signs are stable this morning. Right hip incision is clean, dry and intact with Steri-Strips in place. No warmth, erythema or
pain. Passive motion is nonpainful. Minimal edema present and no ecchymosis. Distal neurovascular was intact. Orthopedics to follow along for now.
--- NOTE | 2024-06-16 07:30 | W.PN.HOSP.TC ---
Addendum entered and electronically signed by Kaley Huynh MD 06/16/24 15:30:
I saw and evaluated the patient independently. I reviewed the resident�s note and agree with findings and plan as documented by Dr. Charlton.
GENERAL: elderly, frail, ill appearing female
HEENT: NC/AT--O2 NC --fresh dried blood on right side of face
HEART: regular rate and rhythm, +S1, +S2
LUNGS : clear to auscultation bilaterally
ABDOM: soft, nontender, nondistended, + bowel sounds, +colostomy with stool--PRINCE drain in place--right sided open wound
EXT: no cyanosis, clubbing, or edema--fresh post op hip replacement
NEUROLOGIC: grossly intact
: cruz removed
Pt seems to me to have more than mild cognitive impairment. Acting more like dementia. Perhaps covered well at home but events of recent weeks may have exacerbated issues. Perhaps 2 surgeries in close proximity (hip and now bowel) are affecting her
mentation? People with cognitive issues usually take a long time post op to return to 'normal/baseline'. She moans and generally appears unwell. Points at what is bothering her. Would limit pain meds if we can in order to help mentation but pt may
just need meds. Psych consult might be helpful.
Septic shock from Acute sigmoid bowel perforation with acute surgical abdomen--unclear if related to pain medication given for total right hip replacement 05/30/24 or something else--lactic acid improved--off pressors--s/p exploratory laparotomy,
sigmoidectomy, and creation of end colostomy--cont IVF--NGT removed--pain control as able--OOB--apprec CRS/ID/maintenance clerk--cont zosyn/micafungin--follow cultures--wbc increasing up to 32K, CT scan again shows subhepatic fluid collection--s/p IR
aspiration--await cultures--now on TPN
Hyponatremia---resolved--apprec renal--likely due to sepsis/IVF resuscitation
Hypokalemia--replete
Hypomagnesemia--replete
acute anemia--likely due to sepsis/dilutional from IVF/blood draws--consider blood transfusion but will need blood consent--pt not able to consent for herself
Acute kidney injury secondary to septic shock/bowel perforation/infection/acute process--improved--apprec renal--lactates improved
Paroxysmal Atrial fibrillation with rapid ventricular response--apprec cards--new diagnosis--consideration for heparin drip with oral anticoagulation eventually--s/p amio--cont beta blockers--Echocardiogram conducted on 06/09/2024 showed aortic
sclerosis without stenosis and no aortic regurgitation. Moderate tricuspid regurgitation. Mild pulmonic regurgitation. Pleural effusion present
Essential hypertension--restart meds as BP allows
Mild cognitive impairment--Monitoring--pt refuses to engage in conversation--?dementia vs acuity
Total right hip replacement on 05/30/2024--apprec ortho--enrique still in--pt refused to have ortho remove--will need PT/OT--likely SNF--clearly not ready
Interstitial lung disease with bronchiectasis--Past medical history of spontaneous pneumothorax--nothing current
code status--Full Code
DVT proph-- Heparin sc
Original Note:
Today's Communication/Plan
-
ID recommends changing LLQ drain. Continue TPN. Continue IV metoprolol.
Assessment / Plan
Assessment / Plan
Assessment/Plan:
-Acute sigmoid bowel perforation with acute surgical abdomen:
Patient's lactic acid was 4.3 in the emergency department
The patient was hyponatremic with a sodium of 123, hypochloremic at 93, low bicarb at 18, elevated BUN at 55, and an elevated creatinine at 1.5 in the emergency department
An abdominal CT showed findings suggesting perforated bowel probable at sigmoid colon with associated retroperitoneal and intraperitoneal free air, air-fluid level suggesting abscess formation and extraluminal stool.
Surgery and colorectal surgery consulted
IV fluid support given
Patient is postop from exploratory laparotomy, sigmoidectomy, and creation of end colostomy
Hydromorphone/Zofran as needed
Continue IV Zosyn -white blood cells at 28.5 on 06/10/2024, on 06/11/2024 her white blood cell count was 26.3, on 06/13/2024 her white blood cell count was 18.9, on 06/15/2024 her white blood cell count was at 29.1, white blood cell count 32.2 on
06/16/2024
Appreciate infectious diseases recommendations�continue Zosyn and micafungin -patient has a PICC line and we may consider home IV antibiotics if indicated
The patient has been extubated and is on room air
The patient has been downgraded to telemetry as she no longer is on pressors and is not intubated.
TPN initiated by surgery -TPN continued
Follow-up CT of the abdomen on 06/15/2024 showed tubular shaped fluid collection along the posterior right lobe of the liver as above with thin enhancing rim, up to 7 cm diameter. Increased as compared with prior and exerts some mass effect against
the right lobe of the liver, suspicious for abscess.
Culture from abdominal abscess preliminary resulted as positive for anaerobic bacteria
ID recommends changing of LLQ
-Left hand swelling:
Patient had left hand swelling on 06/14/2024
Bilateral upper extremity ultrasound ordered -negative for bilateral upper extremity deep venous thrombosis
-Hyponatremia:
Patient was found to be hyponatremic with a sodium of 123 in the emergency department.
Sodium is 129 on 06/08/2024 -is 128 on 06/09/2024, is 132 on 06/10/2024, 139 on 06/14/2019
GFR at baseline
Appreciate nephrology recommendations
Nephrology has recommended reducing IV fluids.
-Hypokalemia:
The patient had hypokalemia at 3.0 on 06/13/2024 and 3.1 on 06/13/2024, 3.1 on 06/14/24, potassium was 3.0 on 06/15/2024, K remained 3.0 on 06/16/24
More potassium repleted on 06/16/2024�continue to follow with labs
-Hypomagnesemia:
Patient had a magnesium level of 1.5 on 06/15/2024 -repleted - was 1.8 on 06/16/24 WNL
Continue to follow labs
-Acute kidney injury secondary to bowel perforation/infection/acute process:
Patient's baseline creatinine is 0.8 taken on 05/12/2024
Lactic acid was 4.3 in the emergency department
On presentation to the emergency department on 06/07/2024 the patient had a creatinine of 1.5 indicating acute kidney injury.
On 06/08/2024 creatinine is 2.0 continue to trend creatinine -was 2.4 at 12: 02 on 06/08/2024 and has begun trending down on 06/09/2024 at 2.2, remained 2.2 on 06/10/2024, creatinine was 1.2 on 06/13/2024
Was on a bicarb infusion but now is on D5 normal saline
Atrial fibrillation with rapid ventricular response:
New diagnosis found postoperatively.
[id number] of 4 due to the age being greater than 75, female, hypertension
Patient is now back in sinus rhythm after receiving Amio
Will start low-dose beta-norma when blood pressure will allow.
Echocardiogram conducted on 06/09/2024 showed aortic sclerosis without stenosis and no aortic regurgitation. Moderate tricuspid regurgitation. Mild pulmonic regurgitation. Pleural effusion present
Therapeutic anticoagulation will likely be started once cleared by surgery
Continue IV Lopressor
-Essential hypertension:
Appreciate cardiology recommendations
Holding home hypertension meds -will consider resuming medications once patient is more hemodynamically stable postoperatively
Metoprolol tartrate 2.5 mg IV every 6 - continue - will switch to Metoprolol 12.5mg BID when able to take oral meds
Cardiology recommend as needed hydralazine for additional BP control
-Mild cognitive impairment:
Monitoring
-S/p ostomy:
Ostomy on the left side
NGT removed
N.p.o. with sips/chips
Wound healing well, ostomy producing stool, maintain wound care
Colorectal surgery continues to follow
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
appreciate ortho recommendations
enrique removed
will need PT/OT--likely SNF
-Interstitial lung disease with bronchiectasis
-Past medical history of spontaneous pneumothorax
FULL CODE STATUS
DVT prophylaxis: Heparin sq
Stress ulcer prophylaxis: Famotidine
Imaging:
-Abdominal CT conducted on 06/07/2024:
New findings suggesting perforated bowel probable sigmoid colon with associated retroperitoneal and intraperitoneal free air, air-fluid levels suggesting abscess formation and extraluminal stool.
Mild small bowel dilatation probably ileus due to reactive change. New
Tiny bilateral pleural effusions. New
Too small to characterize hypodense left renal lesion likely a benign cyst.
Mild lingular bronchiectasis. Stable
Critical value: Free air.
-Chest x-ray conducted on 06/07/2024:
Endotracheal tube is present with its tip 6 cm above the rafiq.
-Echocardiogram conducted on 06/09/2024:
Normal biventricular size and systolic function without regional wall motion abnormality.
Mild to moderate mitral regurgitation.
Pleural effusion present.
No prior study available for comparison.
-Abdominal CT conducted on 06/15/2024:
IMPRESSION:
1. Somewhat tubular shaped fluid collection along the posterior right lobe of the liver as above with thin enhancing rim, up to 7 cm diameter. Increased as compared with prior and exerts some mass effect against the right lobe of the liver,
suspicious for abscess.
2. Small volume of free fluid adjacent the liver and spleen. Small volume of unorganized free fluid in the anterior and left abdomen as above.
3. Anasarca. Small bilateral pleural effusions with adjacent atelectasis, increased as compared to prior.
4. Trace residual pneumoperitoneum. Partially open abdominal wall incision with some associated abdominal wall emphysema.
5. Mild right hydronephrosis. No ureteral filling defects identified.
6. Small volume of gas within the urinary bladder likely related to previous Cruz catheter.
7. Approximately 1.8 cm left ovarian cyst.
-Upper Limb Bilateral Peripheral Vascular US conducted on 06/15/24:
FINDINGS: PICC is noted in the left brachial, axillary, and subclavian veins. The deep venous systems show normal grayscale appearance, normal conventional Doppler waveform with appropriate response to respiration and augmentation, and normal color
flow Doppler signal. Where feasible, there is expected compressibility of the vessels.
IMPRESSION: Negative for bilateral upper extremity deep venous thrombosis.
Procedures:
-Ultrasound guided drainage of an intra-abdominal fluid collection on 06/15/24:
TECHNIQUE: The risks and benefits of the procedure were discussed with the patient and informed, written consent was obtained. The patient was positioned prone with a right side up. Ultrasound was performed of the right hepatorenal region, which
confirmed a fluid collection superior to the right kidney and adjacent to the liver, as seen on recent CT.
The right posterior flank was prepped and draped in the usual sterile fashion. Maximum sterile barrier techniques were used including wearing cap and mask and sterile gown and sterile gloves and a large sterile sheet and hand hygiene and 2%
chlorhexidine for cutaneous antisepsis. Split doses of Versed and fentanyl were administered by a board certified nurse under continuous hemodynamic monitoring.
Preliminary ultrasound was performed. 2% lidocaine was administered subcutaneously for local anesthesia. Next an 18-gauge needle was advanced into the abdominal fluid collection under real-time ultrasound guidance. Purulent fluid was aspirated
through the needle. An 035 guidewire was then advanced through the needle and positioned within the fluid collection. Following serial dilation of the tract, an 8.5 [place] locking loop catheter was advanced over the guidewire, and the pigtail was
coiled within the collection.
A total of 20 milliliters of purulent fluid was aspirated, and sent for culture and sensitivity.
Anticipated Discharge: > 48 hours
Subjective/Interval History
-
Date of Service: June 16, 2024
Met with patient at the bedside. Patient is visibly uncomfortable and laying in the bed leaning off towards the left side near the handrail. She is frequently moaning and does not use words to express herself if can be avoided. Patient continues
to point to her abdomen and say her stomach hurts.
Objective Data
-
Labs:
Labs
06/16/24 08:28
06/16/24 04:40
Vital Signs:
Vital Signs
Temp Pulse Resp BP Pulse Ox
97.8 F 70 16 152/71 95
06/16/24 03:05 06/16/24 06:05 06/16/24 03:05 06/16/24 06:05 06/16/24 03:05
I&O
06/15/24 06/16/24 06/17/24
06:59 06:59 06:59
Intake Total 3395 / 3395 1360 / 1360
Output Total 3975 / 3975 2300 / 2300
Balance -580 / -580 -940 / -940
Review of Systems
-
Unable to obtain full review of systems at this time due to: Acuity
History Source: Patient
Abdomen/GI: Reports Pain
Physical Exam
-
General: Well Developed, Well Nourished, No Apparent Distress and Comfortable
HEENT: Normocephalic and Moist Mucous Membranes
Respiratory: Clear to Auscultation; Negative Wheezes, Rales, Rhonchi or Crackles
Cardiac: S1/S2; Negative Murmur or Rub
Breast: Deferred by me
GI: Ostomy
Rectal: Deferred by Provider
Genito-urinary: Deferred by me
Musculoskeletal: No Clubbing, No Cyanosis and No Edema
Skin: Warm and Dry
Neuro: Awake, Alert, Oriented and AO x 3
Psych: Depressed
[2024-06-16] MEDS: KCL 100 IV (08:13)
[2024-06-16] MEDS: HEPARIN 5000 UNITS SC ×2 (08:14→17:30)
[2024-06-16] MEDS: PEPCID 20 MG IV (08:14)
[2024-06-16] MEDS: NSS (PRESERVATIVE FREE) 8 ML IV (08:14)
[2024-06-16 08:51] LABS: Hemoglobin 8.8 g/dL (12.0-16.0); Mean Corp Hgb Conc. 35.2 g/dL (33.0-37.0); Mean Corpuscular Hgb 33.1 pg (27.0-31.0); Mean Platelet Volume 11.3 fL (7.4-10.4); Platelet Count 274 10^3/uL (130-400); Red Blood Cell Count 2.66 10^6/uL (4.20-5.40); Red Cell Dist. Width 13.6 % (11.5-14.5); White Blood Cell Count 32.2 10^3/uL (4.8-10.8)
--- NOTE | 2024-06-16 09:09 | W.PN.CD ---
Today's Communication / Plan
-
reamins in sinus. Brief run of PAF on tele
Coninue IV metoprolol
Transition IV metoprolol to metoprolol 12.5 mg BID when able to take PO
Impression / Plan
-
A/P: 79-year-old woman with history of hypertension, hypercholesterolemia, interstitial lung disease, bronchiectasis, history of spontaneous pneumothorax who underwent right hip replacement 1 week prior to this admit and then presented to [place]
[facility] with bowel perforation requiring emergent laparotomy with colectomy and colostomy. She had paroxysms of AF currently in SR.
A-fib with RVR now in SR
-New diagnosis
-CHADSVASC 4 (age greater than 75, female, hypertension). Not on AC at this time in this patient with recent surgery, anemia, possible need for more procedures?
-Occurred in the postoperative setting after emergent laparotomy and patient on pressors, now off pressors.
-correct electrolyte abnormalities- K+ and mag being replaced, monitor closely
-now off IV amiodarone. Continue IV metoprolol. Transition IV metoprolol to metoprolol 12.5 mg BID when able to take PO
-diet advanceement per surgical team
LONG:
-resolved
-renal on board
Hypokalemia, hypomagnesemia:
-management per primary and nephrology- replacements ordered this AM
-monitor closely
Postop emergent laparotomy/colectomy for bowel perforation.
-Management directed by colorectal surgery
-for repeat CT scan today
Pulmonary- Patient with a history of pulmonary disease/interstitial lung disease/bronchiectasis and prior history of pneumothorax:
-pulm/crit care signed off
Hypertension:
-BP's elevated. She has pain. On CCB as OP.
-continue IV metoprolol, can add other meds if needed.
Recent Hip right hip replacement:
-ortho following
Subjective:
Has some abdominal pain and is tired
echo:
CONCLUSIONS
Normal biventricular size and systolic function without regional wall motion
abnormality.
Mild to moderate mitral regurgitation.
Pleural effusion present.
No prior study available for comparison.
Physical Exam
Vital Signs/Labs
Vital Signs
Temp Pulse Resp BP Pulse Ox
97.7 F 69 16 105/63 94
06/16/24 07:41 06/16/24 07:41 06/16/24 07:41 06/16/24 07:41 06/16/24 07:41
06/15/24 06/16/24 06/17/24
06:59 06:59 06:59
Actual Weight 74 kg 72.983 kg
06/16/24 08:28
06/16/24 04:40
PT 14.6 Sec (11.4-14.6) 06/07/24 14:37
INR 1.11 06/07/24 14:37
APTT 27.5 Sec (23.4-35.0) 06/07/24 14:37
Magnesium 1.8 mg/dl (1.6-2.3) 06/16/24 04:40
Triglycerides Cancelled 06/14/24 09:48
Physical Exam
Constitutional: No acute distress
Cardiovascular: Rhythm & rate is regular
Respiratory: Respiratory effort normal
GI: Soft
Neuro/Psych: Alert
Data Reviewed
-
Date of Service: June 16, 2024
Medical Decision Making: Reviewed Test Results
Medical Tests (PFT, Pathology etc): Report Reviewed by me
Labs: Labs Reviewed by me
--- NOTE | 2024-06-16 09:25 | W.PN.ID1 ---
Date of Service
Date of Service: June 16, 2024
Today's Communication
- could consider removal of old, right lower abd drain - output remains minimal
- new drain in the back with 20 ccs output yesterday and another 20 so far today
- c/w with zosyn
- c/w micafungin
Assessment / Plan
Bowel Perforation likely due to Stercoral colitis
GNR Bacteremia due to bowel perforation
S/p Exploratory laparotomy, lysis of adhesions, sigmoidectomy, creation of end-colostomy
Ileus
LONG
Recent right hip replacement
- 06/07 blood cultures both with anaerobe - bacteroides - source bowel perforation
- blood culture from 06/09 now also with a sensitive E coli
- repeat blood cultures x2 06/15 no growth to date
- 06/15 abscess cultures: gram stain no organisms
- could consider removal of old, right lower abd drain - output remains minimal
- new drain in the back with 20 ccs output yesterday and another 20 so far today
- c/w with zosyn
- c/w micafungin
- has PICC
follow clinically
Chief Complaint
-: Other (bowel perforation, secondary peritonitis)
Subjective / Review of Systems
afebrile
bp stable
had new PRINCE drain placed with IR yesterday - 20 mL purulent fluid
Vital Signs / Physical Exam
Vital Signs
Vital Signs
Temp Pulse Resp BP Pulse Ox
97.7 F 69 16 105/63 94
06/16/24 07:41 06/16/24 07:41 06/16/24 07:41 06/16/24 07:41 06/16/24 07:41
Physical Exam
Constitutional: Acutely Ill and Non-toxic
Cardiovascular: Regular Rate and S1/S2; Negative Murmur or Rub
Pulmonary: Clear and Symmetric; Negative Wheezes or Rales
Gastrointestinal: Soft, Non Tender, Non Distended, Normal Bowel Sounds and Other (pinks stoma, some output in the bag)
Skin: Warm and Dry; Negative Rash or Jaundice
Lines: Other (drain x2)
Objective Data
Lab Data
Lab Results
06/16/24 08:28
06/16/24 04:40
PT 14.6 Sec (11.4-14.6) 06/07/24 14:37
INR 1.11 06/07/24 14:37
APTT 27.5 Sec (23.4-35.0) 06/07/24 14:37
Estimated Creat Clear 52 ml/min 06/16/24 04:40
Lactic Acid 1.9 mmol/L (0.7-2.0) 06/10/24 03:33
Total Bilirubin 1.1 mg/dl (0.2-1.3) 06/14/24 07:24
AST 31 U/L (14-36) 06/14/24 07:24
ALT 35 U/L (0-35) 06/14/24 07:24
Alkaline Phosphatase 200 U/L (38-126) H 06/14/24 07:24
Most recent labs reviewed.
Micro Results:
06/14/24 09:05 Blood Culture - Preliminary
Blood/Venous No Growth in 48 hours- Final report to follow
06/15/24 16:25 Body Fluid Culture - Pending
Fluid Gram Stain - Preliminary
06/15/24 16:25 Anaerobic Culture - Pending
Abdomen
06/14/24 12:56 Blood Culture - Preliminary
Blood/Venous No Growth in 24 hours- Final report to follow
06/14/24 12:22 Blood Culture - Preliminary
Blood/Venous No Growth in 24 hours- Final report to follow
06/09/24 15:02 Blood Culture - Preliminary
Blood/Venous Escherichia coli
Gram Stain - Preliminary
06/07/24 10:27 Blood Culture - Final
Blood/Venous Bacteroides uniformis
Gram Stain - Final
06/07/24 10:26 Blood Culture - Final
Blood/Venous Bacteroides uniformis
Gram Stain - Final
06/09/24 12:09 Blood Culture - Final
Blood/Venous No Growth - Final Report
06/07/24 23:30 MRSA Screen - Final
Nose No Methicillin Resistant Staphylococcus aureus isolated.
06/07/24 10:27 Urine Culture - Final
Urine No Significant Growth
06/07/24 09:19 Influenza Types A & B (EVI) - Final
Nasal Swab Negative for Influenza A & B, NAAT
Negative results must be combined with clinical observations
and patient history.
Nucleic Acid Amplification test (NAAT)performed on the
[facility] platform.
[2024-06-16 09:28] LABS: % Basophils 0.3 % (0-2); % Immature Granulocytes 2.2 % (0-0.5); % Lymphocytes 2.2 % (20.5-51.1); % Monocytes 2.3 % (1.7-9.3); Absolute Basophils 0.1 10^3/uL (0-0.2); Absolute Immature Granulocytes 0.7 10^3/uL (0-0.05); Absolute Lymphocytes 0.7 10^3/uL (1.2-3.4); Absolute Monocytes 0.7 10^3/uL (0.1-0.6); Nucleated Red Blood Cells % 0 %
--- NOTE | 2024-06-16 11:09 | W.PN.CRS1 ---
Today's Communication / Plan
-
IR for LLQ drain
TPN
Assessment/Plan
-
79-year-old female with PMH of HTN, HLD, interstitial lung disease with bronchiectasis, history of pneumonia multiple times, history of spontaneous pneumothorax x 2 who presents 8 days after right hip replacement; 4 days prior to admission, she
started to develop abdominal pain and nausea with decreased bowel function; the abdominal pain and nausea/vomiting continue to worsen; she denies any fevers, chest pain, or urinary symptoms; she does have dyspnea due to the abdominal pain; her last
colonoscopy was 2 years ago which she reports as normal (report not available to me); in the ED, her WBC was 9.3, CR 1.5 and a CTAP was done which shows moderate free air, extraluminal stool adjacent to the mid sigmoid colon with concern of sigmoid
perforation possibly due to diverticulitis
POD 8 ex lap, sigmoidectomy with end colostomy creation for perforated stercoral colitis; extensive washout ~9L for feculent peritonitis
06/12- CT A/P due to increasing abdominal pain did not show any abscesses or drainable collections (discussed with IR)
06/15- right hepatic drain placed by IR
AFVSS
WBC 32.2 (24.6), Hgb 8.8 (8.6), Creatinine 0.9 (1.0)
�IR reconsulted today for drainage of LLQ collection
-Maintain PRINCE drain
�On clears, will make NPO for now. Okay for clears after IR.
-Continue TPN.
-Wound RN for stoma care/midline wound care
-BID packing to midline wound with dressing changes (increased from daily)
�Continue IV Zosyn; gram-negative bacteremia, appreciate ID
-Wound cultures pending
�Pain control with Ofirmev and Dilaudid as needed
�Cards will eventually confirm cardiac meds to po when tolerating a diet - will notify when cards when tolerating
�DVT PPx: subQ heparin
�Appreciate brand activation manager/hospitalist
-Dipso: eventual PM+R consult when getting closer to dispo for rehab eval
-Called patient's daughter with an update
Subjective Data
Procedure
Exploratory laparotomy, lysis of his adhesions, sigmoidectomy, creation of end colostomy on 06/07/24
Subjective Data
Date of Service: June 16, 2024
Patient states she has pain and nausea. She does not say much else.
Objective Data
-
Vital Signs
Temp Pulse Resp BP Pulse Ox
97.7 F 69 16 105/63 94
06/16/24 07:41 06/16/24 07:41 06/16/24 07:41 06/16/24 07:41 06/16/24 07:41
Intake & Output
06/15/24 06/16/24 06/17/24
06:59 06:59 06:59
Intake Total 3395 / 3395 1360 / 1360
Output Total 3975 / 3975 2388 / 2388
Balance -580 / -580 -1028 / -1028
Intake:
Oral fluids 480 / 480
IV fluids (Total) 2540 / 2540 630 / 630
IV piggybacks 505 / 505 250 / 250
TPN/PPN 350 / 350
Output:
Liquid stool amount 295 / 295 200 / 200
Colostomy 295 / 295 200 / 200
Drain Output (Total) 30 / 30 38 / 38
Right Back 18 18
Right Lower Abdomen Darius- 30 / 30 20 / 20
[place]
Urine, Voided 3650 / 3650 2150 / 2150
Other:
How many times incontinent 1
MODERATE amount urine
Lab Results
06/16/24 08:28
06/16/24 04:40
Physical Exam
-
General: No Acute Distress and AOx3
Abdomen: Tender (around incision) and Other (Prince drain with purulent output, right liver drain with green purulent output)
Wound: Dressing Changed (4x4s replaced, murky, ?small fascial separation anteriorly )
--- NOTE | 2024-06-16 11:16 | W.PN.NEPH.PH ---
Today's Communication / Plan
-
s/o
Assessment/Plan
-
79-year-old female with PMH of HTN, HLD, interstitial lung disease with bronchiectasis, history of pneumonia multiple times, history of spontaneous pneumothorax x 2 who presents 8 days after right hip replacement;
Presents with� Colonic perforation s/p right hip replacement; status post colectomy with ostomy
Baseline creatinine 0.8 with admitting creatinine 1.5.
Impression.
Acute kidney injury in the setting of sepsis and hemodynamic.
Bowel perforation status post sigmoidectomy.
Hyponatremia.
Hypertension.
Status post total hip replacement May 30, 2024.
Interstitial lung disease..
Plan.
TPN per surgery
will sign off, please call with questions
-
-
Date of Service: June 16, 2024
CC / HPI / ROS
-
Chief Complaint:
Abdominal pain
History of Present Illness:
Acute kidney injury secondary to sepsis and perforated viscus.
LONG/Cr stable 0.9
BP stable
Na normal
K low 3.0
calcium low
on TPN per colorectal surgery
nonoliguric
Review of Systems:
complains of generalized pain, unable to describe
Nonoliguric
Labs
-
Labs:
WBC 32.2 10^3/uL (4.8-10.8) H 06/16/24 08:28
RBC 2.66 10^6/uL (4.20-5.40) L 06/16/24 08:28
Hgb 8.8 g/dL (12.0-16.0) L 06/16/24 08:28
Hct 25.0 % (37.0-47.0) L 06/16/24 08:28
Plt Count 274 10^3/uL (130-400) 06/16/24 08:28
Sodium 139 mmol/L (135-145) 06/16/24 04:40
Potassium 3.0 mmol/L (3.5-5.1) L 06/16/24 04:40
Chloride 105 mmol/L (98-107) 06/16/24 04:40
Carbon Dioxide 27 mmol/L (22-30) 06/16/24 04:40
BUN 35 mg/dl (7-17) H 06/16/24 04:40
Creatinine 0.9 mg/dL (0.6-1.0) 06/16/24 04:40
eGFR > 60.00 06/16/24 04:40
Glucose 279 mg/dl (70-99) H 06/16/24 04:40
Calcium 7.6 mg/dl (8.4-10.2) L 06/16/24 04:40
Phosphorus 1.9 mg/dl (2.5-4.5) L 06/14/24 07:24
Albumin 2.1 g/dl (3.5-5.0) L 06/14/24 07:24
Physical Exam
-
Vital Signs:
Vital Signs
Temp Pulse Resp BP Pulse Ox
97.7 F 69 16 105/63 94
06/16/24 07:41 06/16/24 07:41 06/16/24 07:41 06/16/24 07:41 06/16/24 07:41
Cardiovascular:: Regular rate and rhythm
Respiratory:: Bilateral: Coarse
Lung Excursion:: Normal
Abdomen:: Soft and Tender
Bowel Sounds:: Decreased
Extremity Edema:: +1: Bilateral:
[2024-06-16 11:28] LABS: Glucose - Point of Care 367 mg/dl (70-99)
[2024-06-16] MEDS: NOVOLOG FLEXPEN-MODERATE RESISTANCE 9 UNITS SC ×2 (11:34→18:16)
[2024-06-16] MEDS: MYCAMINE 105 MG IV (14:25)
--- NOTE | 2024-06-16 16:47 | W.PN.UPDATE ---
Update Note
Progress Note Update
- CT guided drain placed into LLQ collection
- 35 mL turbid fluid obtained. Samples sent.
- Pt tolerated well.
[2024-06-16 17:57] LABS: Glucose - Point of Care 377 mg/dl (70-99)
[2024-06-16] MEDS: Parenteral Nutrition, Central 1310 IV (21:17)
[2024-06-16 22:07] LABS: Glucose - Point of Care 343 mg/dl (70-99)
[2024-06-16 23:51] LABS: Glucose - Point of Care 370 mg/dl (70-99)
[2024-06-17] VITALS (7 sets, daily range): BP systolic 151–173; BP diastolic 74–87; BMI 24.3
[2024-06-17] MEDS: HEPARIN 5000 UNITS SC ×4 (00:05→23:04)
[2024-06-17] MEDS: NOVOLOG FLEXPEN-MODERATE RESISTANCE 9 UNITS SC (00:06)
[2024-06-17] MEDS: ZOSYN 100 IV ×5 (00:06→23:02)
[2024-06-17] MEDS: LOPRESSOR 2.5 MG IV ×5 (00:10→23:04)
[2024-06-17] MEDS: NOVOLOG FLEXPEN-MODERATE RESISTANCE 5 UNITS SC ×2 (05:43→12:29)
[2024-06-17 05:44] LABS: Glucose - Point of Care 252 mg/dl (70-99)
[2024-06-17] MEDS: DILAUDID 0.5 MG IV ×2 (06:00→19:27)
[2024-06-17 06:59] LABS: Hematocrit 25.9 % (37.0-47.0); Hemoglobin 8.6 g/dL (12.0-16.0); Mean Corp Hgb Conc. 33.2 g/dL (33.0-37.0); Mean Corpuscular Hgb 30.4 pg (27.0-31.0); Mean Corpuscular Volume 91.5 fL (81.0-99.0); Mean Platelet Volume 11.5 fL (7.4-10.4); Platelet Count 278 10^3/uL (130-400); Red Blood Cell Count 2.83 10^6/uL (4.20-5.40); Red Cell Dist. Width 13.4 % (11.5-14.5); White Blood Cell Count 33.4 10^3/uL (4.8-10.8)
[2024-06-17 07:13] LABS: Blood Urea Nitrogen 36 mg/dl (7-17); Calcium 7.8 mg/dl (8.4-10.2); Carbon Dioxide 27 mmol/L (22-30); Chloride 103 mmol/L (98-107); Estimated Creatinine Clearance 52 ml/min; Glucose 252 mg/dl (70-99); Magnesium 1.7 mg/dl (1.6-2.3); Potassium 2.8 mmol/L (3.5-5.1); Sodium 138 mmol/L (135-145); eGFR > 60.00
[2024-06-17] MEDS: NSS (PRESERVATIVE FREE) 8 ML IV (08:22)
[2024-06-17] MEDS: PEPCID 20 MG IV (08:24)
[2024-06-17 08:48] LABS: % Basophils 0.3 % (0-2); % Eosinophils 0.1 % (0-6); % Immature Granulocytes 2.9 % (0-0.5); % Lymphocytes 1.9 % (20.5-51.1); % Monocytes 2.2 % (1.7-9.3); % Neutrophils 92.6 % (42.2-75.2); Absolute Basophils 0.1 10^3/uL (0-0.2); Absolute Lymphocytes 0.7 10^3/uL (1.2-3.4); Absolute Monocytes 0.7 10^3/uL (0.1-0.6); Absolute Neutrophils 30.9 10^3/uL (1.4-6.5); Nucleated Red Blood Cells % 0.1 %
[2024-06-17 08:54] LABS: Hypersegmented Neutrophil 2+; Normal RBC Morphology Yes; Toxic Granulation 2+
--- NOTE | 2024-06-17 09:40 | W.PN.CRS1 ---
Today's Communication / Plan
-
bedrest today
TPN
await cultures
wound care
Assessment/Plan
-
79-year-old female with PMH of HTN, HLD, interstitial lung disease with bronchiectasis, history of pneumonia multiple times, history of spontaneous pneumothorax x 2 who presents 8 days after right hip replacement; 4 days prior to admission, she
started to develop abdominal pain and nausea with decreased bowel function; the abdominal pain and nausea/vomiting continue to worsen; she denies any fevers, chest pain, or urinary symptoms; she does have dyspnea due to the abdominal pain; her last
colonoscopy was 2 years ago which she reports as normal (report not available to me); in the ED, her WBC was 9.3, CR 1.5 and a CTAP was done which shows moderate free air, extraluminal stool adjacent to the mid sigmoid colon with concern of sigmoid
perforation possibly due to diverticulitis
POD 9 ex lap, sigmoidectomy with end colostomy creation for perforated stercoral colitis; extensive washout ~9L for feculent peritonitis
06/12- CT A/P due to increasing abdominal pain did not show any abscesses or drainable collections (discussed with IR)
06/15- right hepatic drain placed by IR
06/16- LLQ drain placed by IR
AFVSS
WBC 33.4 (32.2), Hgb 8.6 (8.8), Creatinine 0.9 (0.9)
K+2.8
-Maintain IR drains x 2 and surgical PRINCE drain
-Potassium repleted. Recheck again this afternoon.
-Will defer OOB today given dehiscence of wound. If needs to be out of bed, must wear abdominal binder.
�Continue clears with Ensure
-Continue TPN.
-Wound RN for stoma care/midline wound care. Will reach out regarding ?Santyl.
-BID packing to midline wound with dressing changes (increased from daily)
�Continue IV Zosyn; gram-negative bacteremia, appreciate ID
-Wound cultures/IR cultures pending
�Pain control with Ofirmev and Dilaudid as needed
�Cards will eventually confirm cardiac meds to po when tolerating a diet - will notify when cards when tolerating
�DVT PPx: subQ heparin
�Appreciate pitch filler/hospitalist
-Dipso: eventual PM+R consult when getting closer to dispo for rehab eval
-Patient's daughter updated at bedside
Subjective Data
Procedure
Exploratory laparotomy, lysis of his adhesions, sigmoidectomy, creation of end colostomy on 06/07/24
Subjective Data
Date of Service: June 17, 2024
Patient states that she feels better today. She still has some abdominal pain. She does not complain of nausea.
Objective Data
-
Vital Signs
Temp Pulse Resp BP Pulse Ox
98.1 F 100 18 172/78 98
06/17/24 07:54 06/17/24 07:54 06/17/24 07:54 06/17/24 07:54 06/17/24 07:54
Intake & Output
06/16/24 06/17/24 06/18/24
06:59 06:59 06:59
Intake Total 1360 / 1360 2840 / 2840
Output Total 2388 / 2388 3185 / 3185
Balance -1028 / -1028 -345 / -345
Intake:
Oral fluids 480 / 480 900 / 900
IV fluids (Total) 630 / 630
IV piggybacks 250 / 250 600 / 600
TPN/PPN 1320 / 1320
Amount instilled into Drain ( 20 / 20
Total)
Left Lower Abdomen Placed in IR 10 10
Right Back
Output:
Liquid stool amount 200 / 200 150 / 150
Colostomy 200 / 200 150 / 150
Drain Output (Total) 38 / 38 85 / 85
Left Lower Abdomen Placed in IR 50 / 50
Right Back
Right Lower Abdomen Darius- 5
[place]
Urine, Voided 2150 / 2150 2950 / 2950
Other:
How many times incontinent 1
MODERATE amount urine
Lab Results
06/17/24 05:54
06/17/24 05:54
Physical Exam
-
General: No Acute Distress and AOx3
Abdomen: Soft, Non Distended, Tender (mild pain) and Other (wound with dehiscence, bowel noted anteriorly, green mucin, dressing replaced. colostomy warm and pink with output. )
Skin: Warm and Dry
[2024-06-17] MEDS: ZOFRAN 4 MG IV (09:46)
--- NOTE | 2024-06-17 09:59 | W.PN.ID1 ---
Date of Service
Date of Service: June 17, 2024
Today's Communication
Continue antibiotics.
Assessment / Plan
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
GNR Bacteremia due to bowel perforation, abscess
S/p Exploratory laparotomy, lysis of adhesions, sigmoidectomy, creation of end-colostomy
Ileus
Marked leukocytosis
LONG
Hx Recent right hip replacement
- 06/07 blood cultures both with anaerobe - bacteroides - source bowel perforation; collection
- blood culture from 06/09 now also with a sensitive E coli
- repeat blood cultures x2 06/15 no growth to date
- 06/15 abscess cultures: gram stain no organisms
Recommendations:
- c/w with zosyn
- c/w micafungin
Follow white count and temperature curve.
follow clinically
Chief Complaint
-: Other (bowel perforation, secondary peritonitis)
Vital Signs / Physical Exam
Vital Signs
Vital Signs
Temp Pulse Resp BP Pulse Ox
98.1 F 100 18 172/78 98
06/17/24 07:54 06/17/24 07:54 06/17/24 07:54 06/17/24 07:54 06/17/24 07:54
Physical Exam
Constitutional: Acutely Ill and Non-toxic
Cardiovascular: Regular Rate and S1/S2; Negative Murmur or Rub
Pulmonary: Clear and Symmetric; Negative Wheezes or Rales
Gastrointestinal: Soft, Non Tender, Non Distended, Normal Bowel Sounds and Other (pinks stoma, some output in the bag)
Skin: Warm and Dry; Negative Rash or Jaundice
Lines: Other (PRINCE drain x2)
Objective Data
Lab Data
Lab Results
06/17/24 05:54
PT 14.6 Sec (11.4-14.6) 06/07/24 14:37
INR 1.11 06/07/24 14:37
APTT 27.5 Sec (23.4-35.0) 06/07/24 14:37
Estimated Creat Clear 52 ml/min 06/17/24 05:54
Lactic Acid 1.9 mmol/L (0.7-2.0) 06/10/24 03:33
Total Bilirubin 1.1 mg/dl (0.2-1.3) 06/14/24 07:24
AST 31 U/L (14-36) 06/14/24 07:24
ALT 35 U/L (0-35) 06/14/24 07:24
Alkaline Phosphatase 200 U/L (38-126) H 06/14/24 07:24
Most recent labs reviewed.
Micro Results:
06/14/24 09:05 Blood Culture - Preliminary
Blood/Venous No Growth in 72 hours- Final report to follow
06/16/24 15:50 Wound Culture - Pending
Abdomen Gram Stain - Preliminary
06/16/24 15:50 Anaerobic Culture - Pending
Abdomen
06/14/24 12:56 Blood Culture - Preliminary
Blood/Venous No Growth in 48 hours- Final report to follow
06/14/24 12:22 Blood Culture - Preliminary
Blood/Venous No Growth in 48 hours- Final report to follow
06/09/24 15:02 Blood Culture - Final
Blood/Venous Escherichia coli
Gram Stain - Final
06/15/24 16:25 Body Fluid Culture - Preliminary
Fluid Gram Stain - Preliminary
06/15/24 16:25 Anaerobic Culture - Preliminary
Abdomen Culture pending. Anaerobic cultures are examined after 3
days incubation. Additional information to follow.
06/07/24 10:27 Blood Culture - Final
Blood/Venous Bacteroides uniformis
Gram Stain - Final
06/07/24 10:26 Blood Culture - Final
Blood/Venous Bacteroides uniformis
Gram Stain - Final
06/09/24 12:09 Blood Culture - Final
Blood/Venous No Growth - Final Report
06/07/24 23:30 MRSA Screen - Final
Nose No Methicillin Resistant Staphylococcus aureus isolated.
06/07/24 10:27 Urine Culture - Final
Urine No Significant Growth
06/07/24 09:19 Influenza Types A & B (EVI) - Final
Nasal Swab Negative for Influenza A & B, NAAT
Negative results must be combined with clinical observations
and patient history.
Nucleic Acid Amplification test (NAAT)performed on the
[employer] platform.
[2024-06-17] MEDS: KCL 100 IV (10:10)
--- NOTE | 2024-06-17 11:07 | WOUNDNOTE ---
MID-LOWER ABDOMEN
[2024-06-17 11:47] LABS: Glucose - Point of Care 262 mg/dl (70-99)
--- NOTE | 2024-06-17 13:06 | WOUNDNOTE ---
[facility] RN NOTE: Visited patient to change ostomy appliance and give recommendations for abdominal dehisced wound per Colorectal Surgery request. Ostomy is budded and pink with liquid stool. Scant open areas on medial portion of wound were lightly
dusted with stoma powder and blotted with no-sting barrier. No leaking noted on current appliance. Appliance changed with barrier #[id number] and pouch #[id number]. Midline abdominal wound with exposed colon and loose necrotic areas. Per Megan FOWLER,
goal of wound care is to protect colon and gently debrided necrotic areas. Plan is to use adaptic to base of wound and gently pack with with saline moistened gauze daily. Orders confirmed and RADHA Mace given update. Patient is currently on TPN. She
is on a Centrella Max Air. Sacrum and heels are intact. More ostomy supplied ordered from [facility]. RADHA Mace made aware. Will continue to follow up for ostomy appliance change on 06/20 or 06/21.
--- NOTE | 2024-06-17 14:32 | W.PN.HOSP.TC ---
Addendum entered and electronically signed by Kaley Huynh MD 06/17/24 15:28:
I saw and evaluated the patient independently. I reviewed the resident�s note and agree with findings and plan as documented by Dr. Charlton.
GENERAL: elderly, frail, ill appearing female MUCH improved today--talking, more alert
HEENT: NC/AT--O2 NC
HEART: regular rate and rhythm, +S1, +S2
LUNGS : clear to auscultation bilaterally
ABDOM: soft, nontender, nondistended, + bowel sounds, +colostomy with stool--PRINCE drain in place--right sided open wound
EXT: no cyanosis, clubbing, or edema--fresh post op hip replacement
NEUROLOGIC: grossly intact
: cruz removed
Septic shock from Acute sigmoid bowel perforation with acute surgical abdomen--unclear if related to pain medication given for total right hip replacement 05/30/24 or something else--lactic acid improved--off pressors--s/p exploratory laparotomy,
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
aspiration 06/15 and 06/16--fluid culture 06/15 with gm neg bacilli, 06/16 no growth--now on TPN
Hyponatremia---resolved--apprec renal--likely due to sepsis/IVF resuscitation
Hypokalemia--replete-- since we have repleted potassium daily, suggest increasing potassium in her TPN formulation.
Hypomagnesemia--replete
acute anemia--likely due to sepsis/dilutional from IVF/blood draws--consider blood transfusion but will need blood consent--pt not able to consent for herself
Acute kidney injury secondary to septic shock/bowel perforation/infection/acute process--improved--apprec renal--lactates improved
Paroxysmal Atrial fibrillation with rapid ventricular response--apprec cards--new diagnosis--consideration for heparin drip with oral anticoagulation eventually--s/p amio--cont beta blockers--Echocardiogram conducted on 06/09/2024 showed aortic
sclerosis without stenosis and no aortic regurgitation. Moderate tricuspid regurgitation. Mild pulmonic regurgitation. Pleural effusion present
Essential hypertension--restart meds as BP allows
Mild cognitive impairment--Monitoring--pt refuses to engage in conversation--?dementia vs acuity
Total right hip replacement on 05/30/2024--apprec ortho--enrique still in--pt refused to have ortho remove--will need PT/OT--likely SNF--clearly not ready
Interstitial lung disease with bronchiectasis--Past medical history of spontaneous pneumothorax--nothing current
code status--Full Code
DVT proph-- Heparin sc
Original Note:
Today's Communication/Plan
-
Patient appears to be doing much better following the adjustment of her left lower quadrant drain. Though her white blood cells remain elevated she is much more alert and able to cooperate with discussion and physical exam. She is needed potassium
repletion for numerous days -the patient may benefit from having potassium added to her TPN formulation.
Assessment / Plan
Assessment / Plan
Assessment/Plan:
-Acute sigmoid bowel perforation with acute surgical abdomen:
Patient's lactic acid was 4.3 in the emergency department
The patient was hyponatremic with a sodium of 123, hypochloremic at 93, low bicarb at 18, elevated BUN at 55, and an elevated creatinine at 1.5 in the emergency department
An abdominal CT showed findings suggesting perforated bowel probable at sigmoid colon with associated retroperitoneal and intraperitoneal free air, air-fluid level suggesting abscess formation and extraluminal stool.
Surgery and colorectal surgery consulted
IV fluid support given
Patient is postop from exploratory laparotomy, sigmoidectomy, and creation of end colostomy
Hydromorphone/Zofran as needed
Continue IV Zosyn -white blood cells at 28.5 on 06/10/2024, on 06/11/2024 her white blood cell count was 26.3, on 06/13/2024 her white blood cell count was 18.9, on 06/15/2024 her white blood cell count was at 29.1, white blood cell count 32.2 on
06/16/2024, white blood cells 33.4 on 06/17/2024
Appreciate infectious diseases recommendations�continue Zosyn and micafungin -patient has a PICC line and we may consider home IV antibiotics if indicated
The patient has been extubated and is on room air
The patient has been downgraded to telemetry as she no longer is on pressors and is not intubated.
TPN initiated by surgery -TPN continued -would be ruth to consider adding potassium to TPN formulation as the patient has been repleted multiple times.
Follow-up CT of the abdomen on 06/15/2024 showed tubular shaped fluid collection along the posterior right lobe of the liver as above with thin enhancing rim, up to 7 cm diameter. Increased as compared with prior and exerts some mass effect against
the right lobe of the liver, suspicious for abscess.
Culture from abdominal abscess preliminary resulted as positive for anaerobic bacteria
ID recommends changing of LLQ -was changed
-Left hand swelling:
Patient had left hand swelling on 06/14/2024
Bilateral upper extremity ultrasound ordered -negative for bilateral upper extremity deep venous thrombosis
-Hyponatremia:
Patient was found to be hyponatremic with a sodium of 123 in the emergency department.
Sodium is 129 on 06/08/2024 -is 128 on 06/09/2024, is 132 on 06/10/2024, 139 on 06/14/2019
GFR at baseline
Appreciate nephrology recommendations
Nephrology has recommended reducing IV fluids.
-Hypokalemia:
The patient had hypokalemia at 3.0 on 06/13/2024 and 3.1 on 06/13/2024, 3.1 on 06/14/24, potassium was 3.0 on 06/15/2024, K remained 3.0 on 06/16/24, remained 3.0 on 06/17/2024
More potassium repleted on 06/17/2024�continue to follow with labs
Recommend addition of potassium to TPN formulation as the patient is consistently needed ongoing potassium repletion for the past 5 days.
-Hypomagnesemia:
Patient had a magnesium level of 1.5 on 06/15/2024 -repleted - was 1.8 on 06/16/24 WNL
Continue to follow labs
-Acute kidney injury secondary to bowel perforation/infection/acute process:
Patient's baseline creatinine is 0.8 taken on 05/12/2024
Lactic acid was 4.3 in the emergency department
On presentation to the emergency department on 06/07/2024 the patient had a creatinine of 1.5 indicating acute kidney injury.
On 06/08/2024 creatinine is 2.0 continue to trend creatinine -was 2.4 at 12: 02 on 06/08/2024 and has begun trending down on 06/09/2024 at 2.2, remained 2.2 on 06/10/2024, creatinine was 1.2 on 06/13/2024, creatinine is 0.9 on 06/17/2024 within normal
limits.
Atrial fibrillation with rapid ventricular response:
New diagnosis found postoperatively.
[id number] of 4 due to the age being greater than 75, female, hypertension
Patient is now back in sinus rhythm after receiving Amio
Will start low-dose beta-norma when blood pressure will allow.
Echocardiogram conducted on 06/09/2024 showed aortic sclerosis without stenosis and no aortic regurgitation. Moderate tricuspid regurgitation. Mild pulmonic regurgitation. Pleural effusion present
Continue IV Lopressor
-Essential hypertension:
Appreciate cardiology recommendations
Holding home hypertension meds -will consider resuming medications once patient is more hemodynamically stable postoperatively
Metoprolol tartrate 2.5 mg IV every 6 - continue - will switch to Metoprolol 12.5mg BID when able to take oral meds
Cardiology recommend as needed hydralazine for additional BP control
-Mild cognitive impairment:
Monitoring
-S/p ostomy:
Ostomy on the left side
NGT removed
N.p.o. with sips/chips
Wound healing well, ostomy producing stool, maintain wound care
Colorectal surgery continues to follow
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
appreciate ortho recommendations
enrique removed
will need PT/OT--likely SNF
-Interstitial lung disease with bronchiectasis
-Past medical history of spontaneous pneumothorax
FULL CODE STATUS
DVT prophylaxis: Heparin sq
Stress ulcer prophylaxis: Famotidine
Imaging:
-Abdominal CT conducted on 06/07/2024:
New findings suggesting perforated bowel probable sigmoid colon with associated retroperitoneal and intraperitoneal free air, air-fluid levels suggesting abscess formation and extraluminal stool.
Mild small bowel dilatation probably ileus due to reactive change. New
Tiny bilateral pleural effusions. New
Too small to characterize hypodense left renal lesion likely a benign cyst.
Mild lingular bronchiectasis. Stable
Critical value: Free air.
-Chest x-ray conducted on 06/07/2024:
Endotracheal tube is present with its tip 6 cm above the rafiq.
-Echocardiogram conducted on 06/09/2024:
Normal biventricular size and systolic function without regional wall motion abnormality.
Mild to moderate mitral regurgitation.
Pleural effusion present.
No prior study available for comparison.
-Abdominal CT conducted on 06/15/2024:
IMPRESSION:
1. Somewhat tubular shaped fluid collection along the posterior right lobe of the liver as above with thin enhancing rim, up to 7 cm diameter. Increased as compared with prior and exerts some mass effect against the right lobe of the liver,
suspicious for abscess.
2. Small volume of free fluid adjacent the liver and spleen. Small volume of unorganized free fluid in the anterior and left abdomen as above.
3. Anasarca. Small bilateral pleural effusions with adjacent atelectasis, increased as compared to prior.
4. Trace residual pneumoperitoneum. Partially open abdominal wall incision with some associated abdominal wall emphysema.
5. Mild right hydronephrosis. No ureteral filling defects identified.
6. Small volume of gas within the urinary bladder likely related to previous Cruz catheter.
7. Approximately 1.8 cm left ovarian cyst.
-Upper Limb Bilateral Peripheral Vascular US conducted on 06/15/24:
FINDINGS: PICC is noted in the left brachial, axillary, and subclavian veins. The deep venous systems show normal grayscale appearance, normal conventional Doppler waveform with appropriate response to respiration and augmentation, and normal color
flow Doppler signal. Where feasible, there is expected compressibility of the vessels.
IMPRESSION: Negative for bilateral upper extremity deep venous thrombosis.
Procedures:
-Ultrasound guided drainage of an intra-abdominal fluid collection on 06/15/24:
TECHNIQUE: The risks and benefits of the procedure were discussed with the patient and informed, written consent was obtained. The patient was positioned prone with a right side up. Ultrasound was performed of the right hepatorenal region, which
confirmed a fluid collection superior to the right kidney and adjacent to the liver, as seen on recent CT.
The right posterior flank was prepped and draped in the usual sterile fashion. Maximum sterile barrier techniques were used including wearing cap and mask and sterile gown and sterile gloves and a large sterile sheet and hand hygiene and 2%
chlorhexidine for cutaneous antisepsis. Split doses of Versed and fentanyl were administered by a board certified nurse under continuous hemodynamic monitoring.
Preliminary ultrasound was performed. 2% lidocaine was administered subcutaneously for local anesthesia. Next an 18-gauge needle was advanced into the abdominal fluid collection under real-time ultrasound guidance. Purulent fluid was aspirated
through the needle. An 035 guidewire was then advanced through the needle and positioned within the fluid collection. Following serial dilation of the tract, an 8.5 Italian locking loop catheter was advanced over the guidewire, and the pigtail was
coiled within the collection.
A total of 20 milliliters of purulent fluid was aspirated, and sent for culture and sensitivity.
Anticipated Discharge: > 48 hours
Subjective/Interval History
-
Date of Service: June 17, 2024
Met with the patient at the bedside. She is doing much better today and was able to describe how she felt. Though she was in pain she described her pain as a 7 out of 10 in her abdomen. She hopes that she is doing better and asked for a cold
cloth for her forehead. She also stated that she was nauseous and I informed her nurse to give her her as needed Zofran.
Objective Data
-
Labs:
Labs
06/17/24 05:54
Vital Signs:
Vital Signs
Temp Pulse Resp BP Pulse Ox
98.1 F 69 16 167/78 92
06/17/24 11:47 06/17/24 12:29 06/17/24 11:47 06/17/24 12:29 06/17/24 11:47
I&O
06/16/24 06/17/24 06/18/24
06:59 06:59 06:59
Intake Total 1360 / 1360 2840 / 2840
Output Total 2388 / 2388 3185 / 3185
Balance -1028 / -1028 -345 / -345
Review of Systems
-
History Source: Patient
Constitutional: Reports Fatigue and Weakness
EENT: Reports No Symptoms Reported
Respiratory: Reports No Symptoms
Cardiac: Reports No Symptoms
Abdomen/GI: Reports Abdominal Pain and Vomiting
[2024-06-17] MEDS: MYCAMINE 105 MG IV (14:44)
[2024-06-17 15:10] LABS: ALT (SGPT) 32 U/L (0-35); AST (SGOT) 37 U/L (14-36); Albumin 2.4 g/dl (3.5-5.0); Alkaline Phosphatase 118 U/L (38-126); Blood Urea Nitrogen 32 mg/dl (7-17); Calcium 8.2 mg/dl (8.4-10.2); Carbon Dioxide 24 mmol/L (22-30); Chloride 100 mmol/L (98-107); Estimated Creatinine Clearance 52 ml/min; HDL Cholesterol 37 mg/dl; Phosphorus 5.3 mg/dl (2.5-4.5); Potassium 5.9 mmol/L (3.5-5.1); Sodium 133 mmol/L (135-145); Total Cholesterol 165 mg/dl (50-199); Total Protein 4.8 g/dl (6.3-8.2); eGFR > 60.00
--- NOTE | 2024-06-17 15:16 | CM ---
Patient seen at bedside with physicians. Patient verbal and answering questions. Patient currently on TPN. Patient will need PT/OT assessments and possibly Acute Rehab assessment prior to clarity on next level of care needs. CM will continue to
follow for discharge planning needs.
Plan; SNF vs Acute rehab pending functional assessments closer to discharge.
[2024-06-17 15:22] LABS: Glucose 985 mg/dl (70-99); LDL Cholesterol, Calculated -20 mg/dl; Triglyceride 744 mg/dl (10-149); Triglycerides 744 mg/dl (10-149); Very Low Density Lipoprotein 148 mg/dl (0-30)
[2024-06-17 16:19] LABS: Glucose 304 mg/dl (70-99)
[2024-06-17 16:23] LABS: LDL Cholesterol, Direct 105 mg/dl
[2024-06-17] MEDS: NOVOLOG FLEXPEN-MODERATE RESISTANCE 7 UNITS SC (16:48)
[2024-06-17] MEDS: Parenteral Nutrition, Central 1180 IV (21:00)
[2024-06-18] VITALS (7 sets, daily range): BP systolic 149–166; BP diastolic 67–81; BMI 22.8
[2024-06-18 00:10] LABS: Glucose - Point of Care 256 mg/dl (70-99)
[2024-06-18] MEDS: NOVOLOG FLEXPEN-MODERATE RESISTANCE 5 UNITS SC (00:51)
[2024-06-18] MEDS: ZOSYN 100 IV ×4 (05:02→23:17)
[2024-06-18] MEDS: ZOFRAN 4 MG IV (05:15)
[2024-06-18 06:05] LABS: Glucose - Point of Care 272 mg/dl (70-99)
[2024-06-18] MEDS: LOPRESSOR 2.5 MG IV ×2 (06:39→11:51)
[2024-06-18] MEDS: NOVOLOG FLEXPEN-MODERATE RESISTANCE 3 UNITS SC (06:40)
[2024-06-18] MEDS: NOVOLOG FLEXPEN-LOW RESISTANCE 3 UNITS SC (06:41)
[2024-06-18] MEDS: DILAUDID 0.5 MG IV ×3 (08:09→18:05)
[2024-06-18] MEDS: NSS (PRESERVATIVE FREE) 8 ML IV (08:10)
[2024-06-18] MEDS: PEPCID 20 MG IV (08:10)
[2024-06-18] MEDS: HEPARIN 5000 UNITS SC ×3 (08:11→23:16)
[2024-06-18] MEDS: SILVER NITRATE APPLICATOR 2 EACH TOPICAL (09:06)
[2024-06-18 09:46] LABS: Hematocrit 24.2 % (37.0-47.0); Hemoglobin 8.2 g/dL (12.0-16.0); Mean Corp Hgb Conc. 33.9 g/dL (33.0-37.0); Mean Corpuscular Hgb 30.7 pg (27.0-31.0); Mean Corpuscular Volume 90.6 fL (81.0-99.0); Mean Platelet Volume 11.7 fL (7.4-10.4); Platelet Count 245 10^3/uL (130-400); Red Blood Cell Count 2.67 10^6/uL (4.20-5.40); Red Cell Dist. Width 13.5 % (11.5-14.5); White Blood Cell Count 27.8 10^3/uL (4.8-10.8)
[2024-06-18 09:49] LABS: Blood Urea Nitrogen 37 mg/dl (7-17); Calcium 7.5 mg/dl (8.4-10.2); Carbon Dioxide 27 mmol/L (22-30); Chloride 102 mmol/L (98-107); Estimated Creatinine Clearance 58 ml/min; Glucose 289 mg/dl (70-99); Potassium 2.9 mmol/L (3.5-5.1); Sodium 136 mmol/L (135-145); eGFR > 60.00
[2024-06-18 10:41] LABS: Triglycerides 298 mg/dl (10-149)
[2024-06-18 11:02] LABS: % Basophils 0.2 % (0-2); % Eosinophils 0.1 % (0-6); % Immature Granulocytes 1.9 % (0-0.5); % Lymphocytes 2.1 % (20.5-51.1); % Monocytes 2.3 % (1.7-9.3); % Neutrophils 93.4 % (42.2-75.2); Absolute Basophils 0.1 10^3/uL (0-0.2); Absolute Immature Granulocytes 0.5 10^3/uL (0-0.05); Absolute Lymphocytes 0.6 10^3/uL (1.2-3.4); Absolute Monocytes 0.6 10^3/uL (0.1-0.6); Nucleated Red Blood Cells % 0 %
[2024-06-18] MEDS: KCL 100 IV (11:55)
[2024-06-18 12:47] LABS: Glucose - Point of Care 371 mg/dl (70-99)
[2024-06-18] MEDS: NOVOLOG FLEXPEN-MODERATE RESISTANCE 9 UNITS SC (12:56)
[2024-06-18] MEDS: MYCAMINE 105 MG IV (12:58)
--- NOTE | 2024-06-18 13:44 | W.PN.CRS1 ---
Today's Communication / Plan
-
Continue TPN
Full liquids
Local wound care/abx
Assessment/Plan
-
79-year-old female with PMH of HTN, HLD, interstitial lung disease with bronchiectasis, history of pneumonia multiple times, history of spontaneous pneumothorax x 2 who presents 8 days after right hip replacement; 4 days prior to admission, she
started to develop abdominal pain and nausea with decreased bowel function; the abdominal pain and nausea/vomiting continue to worsen; she denies any fevers, chest pain, or urinary symptoms; she does have dyspnea due to the abdominal pain; her last
colonoscopy was 2 years ago which she reports as normal (report not available to me); in the ED, her WBC was 9.3, CR 1.5 and a CTAP was done which shows moderate free air, extraluminal stool adjacent to the mid sigmoid colon with concern of sigmoid
perforation possibly due to diverticulitis
POD 10 ex lap, sigmoidectomy with end colostomy creation for perforated stercoral colitis; extensive washout ~9L for feculent peritonitis
06/12- CT A/P due to increasing abdominal pain did not show any abscesses or drainable collections (discussed with IR)
06/15- right hepatic drain placed by IR
06/16- LLQ drain placed by IR
AFVSS
Leukocytosis present but trending down
Hypokalemia: replaced
Hyperglycemia, nutrition/hospitalist following
+psuedomonas/ecoli in body fluid cx, +ecoli in the blood, other wound cx pending
-Maintain drains
-Potassium repleted, adjusted TPN as well
-TPN renewed
-Will defer PT given dehiscence of wound. If needs to be out of bed, must wear abdominal binder.
�Fulls with vanilla ensure and ok for applesauce
-Wound RN for stoma care/midline wound care, continue dressing changes. Nonadherent pads to exposed bowel
�ABX as per ID
- PO and IV analgesic options
�Appreciate cards recs, will transition back to PO metoprolol
�DVT PPx: subQ heparin
Medical management as per hospitalist
Subjective Data
Procedure
Exploratory laparotomy, lysis of his adhesions, sigmoidectomy, creation of end colostomy on 06/07/24
Subjective Data
Date of Service: June 18, 2024
Patient seen and examined at bedside with Dr. Sinclair. Eddie n/v. Taking in a little more PO.
Objective Data
-
Vital Signs
Temp Pulse Resp BP Pulse Ox
97.5 F 66 16 161/79 96
06/18/24 11:00 06/18/24 11:00 06/18/24 11:00 06/18/24 11:00 06/18/24 11:00
Intake & Output
06/17/24 06/18/24 06/19/24
06:59 06:59 06:59
Intake Total 2840 / 2840 1690 / 1690 250 / 250
Output Total 3185 / 3185 3367 / 3367 700 / 700
Balance -345 / -345 -1677 / -1677 -450 / -450
Intake:
Oral fluids 900 / 900 1680 / 1680 240 / 240
IV piggybacks 600 / 600
TPN/PPN 1320 / 1320
Amount instilled into Drain ( / 20
Total)
Left Lower Abdomen Placed in IR 10
Right Back 10
Output:
Liquid stool amount 150 / 150 210 / 210
Colostomy 150 / 150 210 / 210
Drain Output (Total) 85 / 85 57 / 57
Left Lower Abdomen Placed in IR 50 / 50 30 / 30
Right Back 30 / 30 12
Right Lower Abdomen Darius- 5 / 5 15 / 15
[place]
Urine, Voided 2950 / 2950 3100 / 3100 700 / 700
Other:
How many times incontinent 1
SATURATED amount urine
Lab Results
06/18/24 09:07
06/18/24 09:07
Physical Exam
-
General: No Acute Distress and AOx3
Abdomen: Soft, Tender (to incision) and Other (colostomy warm and pink with liquid brown output. )
Skin: Warm and Dry
Wound: Other (PRINCE drains to right side with thick green mucin, IR drain with serous fluid)
Incision: Other (wound with dehiscence, bowel noted anteriorly, green mucin, dressing changed. bleeding area to dermis at right lower wound edge: silver nitrate applied with success )
--- NOTE | 2024-06-18 14:25 | W.PN.UPDATE ---
Update Note
Progress Note Update
Patient seen and examined by Orthopedic surgery this afternoon. She is resting in bed and reports abdominal discomfort. She denies any pain in her right hip. Status post right total hip arthroplasty May 30, [address] Lyon. Patient
unfortunately sustained bowel perforation and underwent exploratory lap under direction of Dr. Moreno June 07, 2024. On 06/16/24, she went to IR for drainage intra-abdominal fluid (LLQ) revealing 35 mL of turbid fluid; preliminary cultures
without growth. Abdominal fluid cultures (right hepatic) from 06/15/24 (+) Pseudomonas aeruginosa and E. coli. ID has patient on Zosyn/Microfungin.
PE: Right hip incision with steri-strips intact. No erythema, warmth, or active drainage. Mild diffuse swelling and minimal ecchymosis. [place] without pain. Gentle ROM hip without pain. Calf is soft and nontender. NVI distally. Able to wiggle
toes and dorsi/plantar flex ankle without difficulty.
Appreciate all teams involved with care of this patient. Continue with formal physical therapy when medically able, THP's. DVT ppx per primary team. Orthopedic surgery will continue to follow along.
--- NOTE | 2024-06-18 14:43 | W.PN.ID1 ---
Date of Service
Date of Service: June 18, 2024
Today's Communication
Continue current antibiotics. Monitor white count and temperature curve.
Assessment / Plan
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
GNR Bacteremia due to bowel perforation, abscess
S/p Exploratory laparotomy, lysis of adhesions, sigmoidectomy, creation of end-colostomy
Ileus
Marked leukocytosis
LONG
Hx Recent right hip replacement
- 06/07 blood cultures both with anaerobe - bacteroides - source bowel perforation; collection
- blood culture from 06/09 now also with a sensitive E coli
- repeat blood cultures x2 06/15 no growth to date
- 06/15 abscess cultures: gram stain no organisms
Recommendations:
- c/w with zosyn
- c/w micafungin
Follow white count and temperature curve.
follow clinically
Chief Complaint
-: Other (bowel perforation, secondary peritonitis)
Subjective / Review of Systems
Patient seen and examined. Reports some improvement in abdominal discomfort today.
Review of Systems: No Fever
Vital Signs / Physical Exam
Vital Signs
Vital Signs
Temp Pulse Resp BP Pulse Ox
97.5 F 66 16 161/79 96
06/18/24 11:00 06/18/24 11:00 06/18/24 11:00 06/18/24 11:00 06/18/24 11:00
Physical Exam
Constitutional: Acutely Ill and Non-toxic
Cardiovascular: Regular Rate and S1/S2; Negative Murmur or Rub
Pulmonary: Clear and Symmetric; Negative Wheezes or Rales
Gastrointestinal: Soft, Non Tender, Non Distended, Normal Bowel Sounds and Other (pinks stoma, some output in the bag)
Skin: Warm and Dry; Negative Rash or Jaundice
Lines: Other (PRINCE drain x2)
Objective Data
Lab Data
Lab Results
06/18/24 09:07
06/18/24 09:07
PT 14.6 Sec (11.4-14.6) 06/07/24 14:37
INR 1.11 06/07/24 14:37
APTT 27.5 Sec (23.4-35.0) 06/07/24 14:37
Estimated Creat Clear 58 ml/min 06/18/24 09:07
Lactic Acid 1.9 mmol/L (0.7-2.0) 06/10/24 03:33
Total Bilirubin 1.0 mg/dl (0.2-1.3) 06/17/24 14:10
AST 37 U/L (14-36) H 06/17/24 14:10
ALT 32 U/L (0-35) 06/17/24 14:10
Alkaline Phosphatase 118 U/L (38-126) 06/17/24 14:10
Most recent labs reviewed.
Micro Results:
06/14/24 12:56 Blood Culture - Preliminary
Blood/Venous No Growth in 4 days- Final report to follow
06/15/24 16:25 Anaerobic Culture - Preliminary
Abdomen Culture pending. Anaerobic cultures are examined after 3
days incubation. Additional information to follow.
06/14/24 12:22 Blood Culture - Preliminary
Blood/Venous No Growth in 4 days- Final report to follow
06/16/24 15:50 Anaerobic Culture - Preliminary
Abdomen Culture pending. Anaerobic cultures are examined after 3
days incubation. Additional information to follow.
06/16/24 15:50 Wound Culture - Preliminary
Abdomen No growth
Gram Stain - Preliminary
06/14/24 09:05 Blood Culture - Preliminary
Blood/Venous No Growth in 4 days- Final report to follow
06/15/24 16:25 Body Fluid Culture - Preliminary
Fluid Pseudomonas aeruginosa
Escherichia coli
Gram Stain - Preliminary
06/09/24 15:02 Blood Culture - Final
Blood/Venous Escherichia coli
Gram Stain - Final
06/07/24 10:27 Blood Culture - Final
Blood/Venous Bacteroides uniformis
Gram Stain - Final
06/07/24 10:26 Blood Culture - Final
Blood/Venous Bacteroides uniformis
Gram Stain - Final
06/09/24 12:09 Blood Culture - Final
Blood/Venous No Growth - Final Report
06/07/24 23:30 MRSA Screen - Final
Nose No Methicillin Resistant Staphylococcus aureus isolated.
06/07/24 10:27 Urine Culture - Final
Urine No Significant Growth
06/07/24 09:19 Influenza Types A & B (EVI) - Final
Nasal Swab Negative for Influenza A & B, NAAT
Negative results must be combined with clinical observations
and patient history.
Nucleic Acid Amplification test (NAAT)performed on the
[employer] platform.
--- NOTE | 2024-06-18 15:45 | W.PN.HOSP.TC ---
Addendum entered and electronically signed by Kaley Huynh MD 06/18/24 16:42:
I saw and evaluated the patient independently. I reviewed the resident�s note and agree with findings and plan as documented by Dr. Charlton.
GENERAL: elderly, frail, ill appearing female MUCH improved today--talking, more alert
HEENT: NC/AT--O2 NC
HEART: regular rate and rhythm, +S1, +S2
LUNGS : clear to auscultation bilaterally
ABDOM: soft, nontender, nondistended, + bowel sounds, +colostomy with stool--PRINCE drain in place--right sided open wound
EXT: no cyanosis, clubbing, or edema--fresh post op hip replacement
NEUROLOGIC: grossly intact
: cruz removed
Septic shock from Acute sigmoid bowel perforation with acute surgical abdomen--unclear if related to pain medication given for total right hip replacement 05/30/24 or something else--s/p exploratory laparotomy, sigmoidectomy, and creation of end
colostomy---pain control as able--OOB--apprec CRS/ID/creative lead--cont zosyn/micafungin--follow cultures--wbc peaked at 33K, now decreasing, CT scan again shows subhepatic fluid collection--s/p IR aspiration 06/15 and 06/16--fluid culture 06/15 with
Pseudomonas, E. coli, 06/16 no growth--now on TPN, diet advancement per CRS
Hyponatremia---resolved--apprec renal--likely due to sepsis/IVF resuscitation
Hypokalemia--replete
Hypomagnesemia--replete
acute anemia--likely due to sepsis/dilutional from IVF/blood draws--consider blood transfusion
Acute kidney injury secondary to septic shock/bowel perforation/infection/acute process--improved--apprec renal--lactates improved
Paroxysmal Atrial fibrillation with rapid ventricular response--apprec cards--new diagnosis--consideration for heparin drip with oral anticoagulation eventually--s/p amio--cont beta blockers--Echocardiogram conducted on 06/09/2024 showed aortic
sclerosis without stenosis and no aortic regurgitation. Moderate tricuspid regurgitation. Mild pulmonic regurgitation. Pleural effusion present
Essential hypertension--restart meds as BP allows
Mild cognitive impairment--Monitoring--much improved
Total right hip replacement on 05/30/2024--apprec ortho--enrique still in--pt refused to have ortho remove--will need PT/OT--likely SNF--clearly not ready
Interstitial lung disease with bronchiectasis--Past medical history of spontaneous pneumothorax--nothing current
code status--Full Code
DVT proph-- Heparin sc
Original Note:
Today's Communication/Plan
-
Continue TPN. Patient was hypokalemic�repleted. Patient drinking full liquids. Continue local wound care. Continue antibiotics.
Assessment / Plan
Assessment / Plan
Assessment/Plan:
-Acute sigmoid bowel perforation with acute surgical abdomen:
Patient's lactic acid was 4.3 in the emergency department
The patient was hyponatremic with a sodium of 123, hypochloremic at 93, low bicarb at 18, elevated BUN at 55, and an elevated creatinine at 1.5 in the emergency department
An abdominal CT showed findings suggesting perforated bowel probable at sigmoid colon with associated retroperitoneal and intraperitoneal free air, air-fluid level suggesting abscess formation and extraluminal stool.
Surgery and colorectal surgery consulted
IV fluid support given
Patient is postop from exploratory laparotomy, sigmoidectomy, and creation of end colostomy
Hydromorphone/Zofran as needed
Continue IV Zosyn -white blood cells at 28.5 on 06/10/2024, on 06/11/2024 her white blood cell count was 26.3, on 06/13/2024 her white blood cell count was 18.9, on 06/15/2024 her white blood cell count was at 29.1, white blood cell count 32.2 on
06/16/2024, white blood cells 33.4 on 06/17/2024
Appreciate infectious diseases recommendations�continue Zosyn and micafungin -patient has a PICC line and we may consider home IV antibiotics if indicated
The patient has been extubated and is on room air
The patient has been downgraded to telemetry as she no longer is on pressors and is not intubated.
TPN initiated by surgery -TPN continued -would be ruth to consider increasing potassium in TPN formulation as the patient has been repleted multiple times.
Patient is allowed to drink full liquids now
Follow-up CT of the abdomen on 06/15/2024 showed tubular shaped fluid collection along the posterior right lobe of the liver as above with thin enhancing rim, up to 7 cm diameter. Increased as compared with prior and exerts some mass effect against
the right lobe of the liver, suspicious for abscess.
Culture from abdominal abscess preliminary resulted as positive for anaerobic bacteria -
Pseudomonas aeruginosa and E. coli found IR drainage of intra-abdominal fluid.
ID recommends changing of LLQ -was changed
-Left hand swelling:
Patient had left hand swelling on 06/14/2024
Bilateral upper extremity ultrasound ordered -negative for bilateral upper extremity deep venous thrombosis
-Hyponatremia:
Patient was found to be hyponatremic with a sodium of 123 in the emergency department.
Sodium is 129 on 06/08/2024 -is 128 on 06/09/2024, is 132 on 06/10/2024, 139 on 06/14/2019
GFR at baseline
Appreciate nephrology recommendations
Nephrology has recommended reducing IV fluids.
-Hypokalemia:
The patient had hypokalemia at 3.0 on 06/13/2024 and 3.1 on 06/13/2024, 3.1 on 06/14/24, potassium was 3.0 on 06/15/2024, K remained 3.0 on 06/16/24, remained 3.0 on 06/17/2024
More potassium repleted on 06/17/2024ontinue to follow with labs
Recommend addition of potassium to TPN formulation as the patient is consistently needed ongoing potassium repletion for the past 5 days.
-Hypomagnesemia:
Patient had a magnesium level of 1.5 on 06/15/2024 -repleted - was 1.8 on 06/16/24 WNL
Continue to follow labs
-Acute kidney injury secondary to bowel perforation/infection/acute process:
Patient's baseline creatinine is 0.8 taken on 05/12/2024
Lactic acid was 4.3 in the emergency department
On presentation to the emergency department on 06/07/2024 the patient had a creatinine of 1.5 indicating acute kidney injury.
On 06/08/2024 creatinine is 2.0 continue to trend creatinine -was 2.4 at 12: 02 on 06/08/2024 and has begun trending down on 06/09/2024 at 2.2, remained 2.2 on 06/10/2024, creatinine was 1.2 on 06/13/2024, creatinine is 0.9 on 06/17/2024 within normal
limits.
Atrial fibrillation with rapid ventricular response:
New diagnosis found postoperatively.
PAO2BA5-BCHy of 4 due to the age being greater than 75, female, hypertension
Patient is now back in sinus rhythm after receiving Amio
Will start low-dose beta-norma when blood pressure will allow.
Echocardiogram conducted on 06/09/2024 showed aortic sclerosis without stenosis and no aortic regurgitation. Moderate tricuspid regurgitation. Mild pulmonic regurgitation. Pleural effusion present
Continue IV Lopressor
-Essential hypertension:
Appreciate cardiology recommendations
Holding home hypertension meds -will consider resuming medications once patient is more hemodynamically stable postoperatively
Metoprolol tartrate 2.5 mg IV every 6 - continue - will switch to Metoprolol 12.5mg BID when able to take oral meds
Cardiology recommend as needed hydralazine for additional BP control
-Mild cognitive impairment:
Monitoring
-S/p ostomy:
Ostomy on the left side
NGT removed
N.p.o. with sips/chips
Wound healing well, ostomy producing stool, maintain wound care
Colorectal surgery continues to follow
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
appreciate ortho recommendations
enrique removed
will need PT/OT--likely SNF
-Interstitial lung disease with bronchiectasis
-Past medical history of spontaneous pneumothorax
FULL CODE STATUS
DVT prophylaxis: Heparin sq
Stress ulcer prophylaxis: Famotidine
Imaging:
-Abdominal CT conducted on 06/07/2024:
New findings suggesting perforated bowel probable sigmoid colon with associated retroperitoneal and intraperitoneal free air, air-fluid levels suggesting abscess formation and extraluminal stool.
Mild small bowel dilatation probably ileus due to reactive change. New
Tiny bilateral pleural effusions. New
Too small to characterize hypodense left renal lesion likely a benign cyst.
Mild lingular bronchiectasis. Stable
Critical value: Free air.
-Chest x-ray conducted on 06/07/2024:
Endotracheal tube is present with its tip 6 cm above the rafiq.
-Echocardiogram conducted on 06/09/2024:
Normal biventricular size and systolic function without regional wall motion abnormality.
Mild to moderate mitral regurgitation.
Pleural effusion present.
No prior study available for comparison.
-Abdominal CT conducted on 06/15/2024:
IMPRESSION:
1. Somewhat tubular shaped fluid collection along the posterior right lobe of the liver as above with thin enhancing rim, up to 7 cm diameter. Increased as compared with prior and exerts some mass effect against the right lobe of the liver,
suspicious for abscess.
2. Small volume of free fluid adjacent the liver and spleen. Small volume of unorganized free fluid in the anterior and left abdomen as above.
3. Anasarca. Small bilateral pleural effusions with adjacent atelectasis, increased as compared to prior.
4. Trace residual pneumoperitoneum. Partially open abdominal wall incision with some associated abdominal wall emphysema.
5. Mild right hydronephrosis. No ureteral filling defects identified.
6. Small volume of gas within the urinary bladder likely related to previous Cruz catheter.
7. Approximately 1.8 cm left ovarian cyst.
-Upper Limb Bilateral Peripheral Vascular US conducted on 06/15/24:
FINDINGS: PICC is noted in the left brachial, axillary, and subclavian veins. The deep venous systems show normal grayscale appearance, normal conventional Doppler waveform with appropriate response to respiration and augmentation, and normal color
flow Doppler signal. Where feasible, there is expected compressibility of the vessels.
IMPRESSION: Negative for bilateral upper extremity deep venous thrombosis.
Procedures:
-Ultrasound guided drainage of an intra-abdominal fluid collection on 06/15/24:
TECHNIQUE: The risks and benefits of the procedure were discussed with the patient and informed, written consent was obtained. The patient was positioned prone with a right side up. Ultrasound was performed of the right hepatorenal region, which
confirmed a fluid collection superior to the right kidney and adjacent to the liver, as seen on recent CT.
The right posterior flank was prepped and draped in the usual sterile fashion. Maximum sterile barrier techniques were used including wearing cap and mask and sterile gown and sterile gloves and a large sterile sheet and hand hygiene and 2%
chlorhexidine for cutaneous antisepsis. Split doses of Versed and fentanyl were administered by a board certified nurse under continuous hemodynamic monitoring.
Preliminary ultrasound was performed. 2% lidocaine was administered subcutaneously for local anesthesia. Next an 18-gauge needle was advanced into the abdominal fluid collection under real-time ultrasound guidance. Purulent fluid was aspirated
through the needle. An 035 guidewire was then advanced through the needle and positioned within the fluid collection. Following serial dilation of the tract, an 8.5 [place] locking loop catheter was advanced over the guidewire, and the pigtail was
coiled within the collection.
A total of 20 milliliters of purulent fluid was aspirated, and sent for culture and sensitivity.
Anticipated Discharge: > 48 hours
Subjective/Interval History
-
Date of Service: June 18, 2024
Met with the patient at the bedside. Patient is the most alert she has been in days. She rates her pain as a 7 out of 10 in her abdomen. She communicates in clear sentences and is awake alert and oriented. This is the most alert she has been in
days. She is clearly agitated but that is due to her pain and she is apologetic for being short of patience. She feels as if she is not making any progress. Emotional support given to the patient.
Objective Data
-
Labs:
Laboratory Results
06/18/24
09:07
WBC 27.8 H
Hgb 8.2 L
Hct 24.2 L
Plt Count 245
Sodium 136
Potassium 2.9 L D
Chloride 102
Carbon Dioxide 27
BUN 37 H
Creatinine 0.8
Glucose 289 H
Calcium 7.5 L
Vital Signs:
Vital Signs
Temp Pulse Resp BP Pulse Ox
97.5 F 66 16 161/79 96
06/18/24 11:00 06/18/24 11:00 06/18/24 11:00 06/18/24 11:00 06/18/24 11:00
I&O
06/17/24 06/18/24 06/19/24
06:59 06:59 06:59
Intake Total 2840 / 2840 1690 / 1690 250 / 250
Output Total 3185 / 3185 3367 / 3367 700 / 700
Balance -345 / -345 -1677 / -1677 -450 / -450
Review of Systems
-
History Source: Patient
Constitutional: Reports Fatigue
EENT: Reports No Symptoms Reported
Respiratory: Reports No Symptoms
Cardiac: Reports No Symptoms
Abdomen/GI: Reports Abdominal Pain
Breast: Reports No Symptoms
Genitourinary: Reports No Symptoms
Musculoskeletal: Reports No Symptoms
Skin: Reports No Symptoms
Neuro: Reports No Symptoms
Psych: Reports Depressed and Sad
Physical Exam
-
General: Well Developed, Well Nourished and Pain
HEENT: Normocephalic, Atraumatic and Moist Mucous Membranes
Respiratory: Clear to Auscultation
Cardiac: S1/S2
Breast: Deferred by me
GI: Soft and Ostomy
Rectal: Deferred by Provider
Genito-urinary: Deferred by me
Musculoskeletal: No Clubbing, No Cyanosis and No Edema
Skin: Warm and Dry
Neuro: Awake, Alert, Oriented and AO x 3
Psych: Calm and Other (Sad)
[2024-06-18 18:04] LABS: Glucose - Point of Care 344 mg/dl (70-99)
[2024-06-18] MEDS: NOVOLOG FLEXPEN-MODERATE RESISTANCE 7 UNITS SC (18:07)
[2024-06-18] MEDS: LOPRESSOR 12.5 MG PO (19:55)
[2024-06-18] MEDS: Parenteral Nutrition, Central 1190 IV (21:00)
[2024-06-18] MEDS: ROXICODONE 5 MG PO (21:24)
[2024-06-19 00:08] LABS: Glucose - Point of Care 339 mg/dl (70-99)
[2024-06-19] MEDS: NOVOLOG FLEXPEN-MODERATE RESISTANCE 7 UNITS SC ×3 (00:25→18:25)
[2024-06-19 03:49] VITALS: BP 168/81
[2024-06-19] MEDS: DILAUDID 0.5 MG IV ×4 (03:59→18:35)
[2024-06-19] MEDS: ZOSYN 100 IV ×3 (05:15→17:16)
[2024-06-19 06:00] VITALS: BMI 23.0
[2024-06-19 06:00] LABS: Glucose - Point of Care 279 mg/dl (70-99)
[2024-06-19] MEDS: NOVOLOG FLEXPEN-MODERATE RESISTANCE 5 UNITS SC (06:04)
[2024-06-19 06:46] LABS: Hematocrit 23.3 % (37.0-47.0); Hemoglobin 7.9 g/dL (12.0-16.0); Mean Corp Hgb Conc. 33.9 g/dL (33.0-37.0); Mean Corpuscular Volume 91.4 fL (81.0-99.0); Mean Platelet Volume 12.1 fL (7.4-10.4); Platelet Count 237 10^3/uL (130-400); Red Blood Cell Count 2.55 10^6/uL (4.20-5.40); Red Cell Dist. Width 13.9 % (11.5-14.5); White Blood Cell Count 21.7 10^3/uL (4.8-10.8)
[2024-06-19 06:53] VITALS: BP 168/80
[2024-06-19 07:06] LABS: Blood Urea Nitrogen 35 mg/dl (7-17); Calcium 7.7 mg/dl (8.4-10.2); Carbon Dioxide 29 mmol/L (22-30); Chloride 104 mmol/L (98-107); Estimated Creatinine Clearance 52 ml/min; Glucose 273 mg/dl (70-99); Magnesium 1.9 mg/dl (1.6-2.3); Potassium 3.5 mmol/L (3.5-5.1); Sodium 136 mmol/L (135-145); eGFR > 60.00
--- NOTE | 2024-06-19 07:30 | W.PN.HOSP.TC ---
Addendum entered and electronically signed by Kaley Huynh MD 06/19/24 13:34:
I saw and evaluated the patient independently. I reviewed the resident�s note and agree with findings and plan as documented by Dr. Charlton.
GENERAL: elderly, frail, ill appearing female MUCH improved--talking, more alert
HEENT: NC/AT--O2 NC
HEART: regular rate and rhythm, +S1, +S2
LUNGS : clear to auscultation bilaterally
ABDOM: soft, nontender, nondistended, + bowel sounds, +colostomy with stool--PRINCE drain in place--right sided open wound
EXT: no cyanosis, clubbing, or edema--fresh post op hip replacement
NEUROLOGIC: grossly intact
: cruz removed
Septic shock from Acute sigmoid bowel perforation with acute surgical abdomen--unclear if related to pain medication given for total right hip replacement 05/30/24 or something else--s/p exploratory laparotomy, sigmoidectomy, and creation of end
colostomy---pain control as able--OOB--apprec CRS/ID/lead applier--cont zosyn/micafungin--follow cultures--wbc peaked at 33K, now decreasing-- CT scan again shows subhepatic fluid collection--s/p IR aspiration 06/15 and 06/16--fluid culture 06/15 with
Pseudomonas, E. coli, 06/16 no growth--now on TPN, diet advancement per CRS
appears to be developing foot drop?--spoke to nurse regarding possibility of inflatable or multipodis boots--have not seen pt out of bed......
Hyponatremia---resolved--apprec renal--likely due to sepsis/IVF resuscitation
Hypokalemia--replete
Hypomagnesemia--replete
acute anemia--likely due to sepsis/dilutional from IVF/blood draws--consider blood transfusion
Acute kidney injury secondary to septic shock/bowel perforation/infection/acute process--improved--apprec renal--lactates improved
Paroxysmal Atrial fibrillation with rapid ventricular response--apprec cards--new diagnosis--consideration for heparin drip with oral anticoagulation eventually--s/p amio--cont beta blockers--Echocardiogram conducted on 06/09/2024 showed aortic
sclerosis without stenosis and no aortic regurgitation. Moderate tricuspid regurgitation. Mild pulmonic regurgitation. Pleural effusion present
Essential hypertension--restart meds as BP allows
Mild cognitive impairment--Monitoring--much improved
Total right hip replacement on 05/30/2024--apprec ortho--enrique still in--pt refused to have ortho remove--will need PT/OT--likely SNF--clearly not ready
Interstitial lung disease with bronchiectasis--Past medical history of spontaneous pneumothorax--nothing current
code status--Full Code
DVT proph-- Heparin sc
Original Note:
Today's Communication/Plan
-
Continue current antibiotics. Advance diet as tolerated -patient on currently full liquids. Maintain wound hygiene and cleaning.
Assessment / Plan
Assessment / Plan
Assessment/Plan:
-Acute sigmoid bowel perforation with acute surgical abdomen:
Patient's lactic acid was 4.3 in the emergency department
The patient was hyponatremic with a sodium of 123, hypochloremic at 93, low bicarb at 18, elevated BUN at 55, and an elevated creatinine at 1.5 in the emergency department
An abdominal CT showed findings suggesting perforated bowel probable at sigmoid colon with associated retroperitoneal and intraperitoneal free air, air-fluid level suggesting abscess formation and extraluminal stool.
Surgery and colorectal surgery consulted
IV fluid support given
Patient is postop from exploratory laparotomy, sigmoidectomy, and creation of end colostomy
Hydromorphone/Zofran as needed
Continue IV Zosyn -white blood cells at 28.5 on 06/10/2024, on 06/11/2024 her white blood cell count was 26.3, on 06/13/2024 her white blood cell count was 18.9, on 06/15/2024 her white blood cell count was at 29.1, white blood cell count 32.2 on
06/16/2024, white blood cells 33.4 on 06/17/2024, white blood cells 21.7 on 06/19/2024
Appreciate infectious diseases recommendations�continue Zosyn and micafungin -patient has a PICC line and we may consider home IV antibiotics if indicated
The patient has been extubated and is on room air
The patient has been downgraded to telemetry as she no longer is on pressors and is not intubated.
TPN initiated by surgery -TPN continued -would be ruth to consider increasing potassium in TPN formulation as the patient has been repleted multiple times.
Patient is allowed to drink full liquids now
Follow-up CT of the abdomen on 06/15/2024 showed tubular shaped fluid collection along the posterior right lobe of the liver as above with thin enhancing rim, up to 7 cm diameter. Increased as compared with prior and exerts some mass effect against
the right lobe of the liver, suspicious for abscess.
Culture from abdominal abscess preliminary resulted as positive for anaerobic bacteria -
Pseudomonas aeruginosa and E. coli found IR drainage of intra-abdominal fluid.
ID recommends changing of LLQ -was changed
-Left hand swelling:
Patient had left hand swelling on 06/14/2024
Bilateral upper extremity ultrasound ordered -negative for bilateral upper extremity deep venous thrombosis
-Hyponatremia:
Patient was found to be hyponatremic with a sodium of 123 in the emergency department.
Sodium is 129 on 06/08/2024 -is 128 on 06/09/2024, is 132 on 06/10/2024, 139 on 06/14/2019
GFR at baseline
Appreciate nephrology recommendations
Nephrology has recommended reducing IV fluids.
-Hypokalemia:
The patient had hypokalemia at 3.0 on 06/13/2024 and 3.1 on 06/13/2024, 3.1 on 06/14/24, potassium was 3.0 on 06/15/2024, K remained 3.0 on 06/16/24, remained 3.0 on 06/17/2024
More potassium repleted on 06/17/2024�continue to follow with labs
Recommend increasing potassium in TPN formulation as the patient is consistently needed ongoing potassium repletion.
Potassium on 06/19/2024 3.5�within the lower range of normal limits.
-Hypomagnesemia:
Patient had a magnesium level of 1.5 on 06/15/2024 -repleted - was 1.8 on 06/16/24 WNL
Continue to follow labs
-Acute kidney injury secondary to bowel perforation/infection/acute process:
Patient's baseline creatinine is 0.8 taken on 05/12/2024
Lactic acid was 4.3 in the emergency department
On presentation to the emergency department on 06/07/2024 the patient had a creatinine of 1.5 indicating acute kidney injury.
On 06/08/2024 creatinine is 2.0 continue to trend creatinine -was 2.4 at 12: 02 on 06/08/2024 and has begun trending down on 06/09/2024 at 2.2, remained 2.2 on 06/10/2024, creatinine was 1.2 on 06/13/2024, creatinine is 0.9 on 06/17/2024 within normal
limits.
Atrial fibrillation with rapid ventricular response:
New diagnosis found postoperatively.
[id number] of 4 due to the age being greater than 75, female, hypertension
Patient is now back in sinus rhythm after receiving Amio
Will start low-dose beta-norma when blood pressure will allow.
Echocardiogram conducted on 06/09/2024 showed aortic sclerosis without stenosis and no aortic regurgitation. Moderate tricuspid regurgitation. Mild pulmonic regurgitation. Pleural effusion present
Continue IV Lopressor
-Essential hypertension:
Appreciate cardiology recommendations
Holding home hypertension meds -will consider resuming medications once patient is more hemodynamically stable postoperatively
Metoprolol tartrate 2.5 mg IV every 6 - continue - will switch to Metoprolol 12.5mg BID when able to take oral meds
Cardiology recommend as needed hydralazine for additional BP control
-Mild cognitive impairment:
Monitoring
-S/p ostomy:
Ostomy on the left side
NGT removed
N.p.o. with sips/chips
Wound healing well, ostomy producing stool, maintain wound care
Colorectal surgery continues to follow
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
appreciate ortho recommendations
enrique removed
will need PT/OT--likely SNF
-Interstitial lung disease with bronchiectasis
-Past medical history of spontaneous pneumothorax
FULL CODE STATUS
DVT prophylaxis: Heparin sq
Stress ulcer prophylaxis: Famotidine
Imaging:
-Abdominal CT conducted on 06/07/2024:
New findings suggesting perforated bowel probable sigmoid colon with associated retroperitoneal and intraperitoneal free air, air-fluid levels suggesting abscess formation and extraluminal stool.
Mild small bowel dilatation probably ileus due to reactive change. New
Tiny bilateral pleural effusions. New
Too small to characterize hypodense left renal lesion likely a benign cyst.
Mild lingular bronchiectasis. Stable
Critical value: Free air.
-Chest x-ray conducted on 06/07/2024:
Endotracheal tube is present with its tip 6 cm above the rafiq.
-Echocardiogram conducted on 06/09/2024:
Normal biventricular size and systolic function without regional wall motion abnormality.
Mild to moderate mitral regurgitation.
Pleural effusion present.
No prior study available for comparison.
-Abdominal CT conducted on 06/15/2024:
IMPRESSION:
1. Somewhat tubular shaped fluid collection along the posterior right lobe of the liver as above with thin enhancing rim, up to 7 cm diameter. Increased as compared with prior and exerts some mass effect against the right lobe of the liver,
suspicious for abscess.
2. Small volume of free fluid adjacent the liver and spleen. Small volume of unorganized free fluid in the anterior and left abdomen as above.
3. Anasarca. Small bilateral pleural effusions with adjacent atelectasis, increased as compared to prior.
4. Trace residual pneumoperitoneum. Partially open abdominal wall incision with some associated abdominal wall emphysema.
5. Mild right hydronephrosis. No ureteral filling defects identified.
6. Small volume of gas within the urinary bladder likely related to previous Cruz catheter.
7. Approximately 1.8 cm left ovarian cyst.
-Upper Limb Bilateral Peripheral Vascular US conducted on 06/15/24:
FINDINGS: PICC is noted in the left brachial, axillary, and subclavian veins. The deep venous systems show normal grayscale appearance, normal conventional Doppler waveform with appropriate response to respiration and augmentation, and normal color
flow Doppler signal. Where feasible, there is expected compressibility of the vessels.
IMPRESSION: Negative for bilateral upper extremity deep venous thrombosis.
Procedures:
-Ultrasound guided drainage of an intra-abdominal fluid collection on 06/15/24:
TECHNIQUE: The risks and benefits of the procedure were discussed with the patient and informed, written consent was obtained. The patient was positioned prone with a right side up. Ultrasound was performed of the right hepatorenal region, which
confirmed a fluid collection superior to the right kidney and adjacent to the liver, as seen on recent CT.
The right posterior flank was prepped and draped in the usual sterile fashion. Maximum sterile barrier techniques were used including wearing cap and mask and sterile gown and sterile gloves and a large sterile sheet and hand hygiene and 2%
chlorhexidine for cutaneous antisepsis. Split doses of Versed and fentanyl were administered by a board certified nurse under continuous hemodynamic monitoring.
Preliminary ultrasound was performed. 2% lidocaine was administered subcutaneously for local anesthesia. Next an 18-gauge needle was advanced into the abdominal fluid collection under real-time ultrasound guidance. Purulent fluid was aspirated
through the needle. An 035 guidewire was then advanced through the needle and positioned within the fluid collection. Following serial dilation of the tract, an 8.5 Fijian locking loop catheter was advanced over the guidewire, and the pigtail was
coiled within the collection.
A total of 20 milliliters of purulent fluid was aspirated, and sent for culture and sensitivity.
Anticipated Discharge: > 48 hours
Subjective/Interval History
-
Date of Service: June 19, 2024
Met with the patient at the bedside. She was sleeping and was woken up for discussion. She states that she is doing better than yesterday and rates her abdominal pain at a 6 out of 10. She believes that she is getting better and going in the
right direction.
Objective Data
-
Labs:
Laboratory Results
06/19/24
05:25
WBC 21.7 H
Hgb 7.9 L
Hct 23.3 L
Plt Count 237
Sodium 136
Potassium 3.5
Chloride 104
Carbon Dioxide 29
BUN 35 H
Creatinine 0.9
Glucose 273 H
Calcium 7.7 L
Vital Signs:
Vital Signs
Temp Pulse Resp BP Pulse Ox
98.0 F 68 14 168/80 94
06/19/24 06:53 06/19/24 06:53 06/19/24 06:53 06/19/24 06:53 06/19/24 06:53
I&O
06/18/24 06/19/24 06/20/24
06:59 06:59 06:59
Intake Total 1690 / 1690 680 / 680 1278 / 1278
Output Total 3367 / 3367 1660 / 1660 942 / 942
Balance -1677 / -1677 -980 / -980 336 / 336
Review of Systems
-
History Source: Patient
Constitutional: Reports Fatigue
EENT: Reports No Symptoms Reported
Respiratory: Reports No Symptoms
Cardiac: Reports No Symptoms
Abdomen/GI: Reports Abdominal Pain
Breast: Reports No Symptoms
Genitourinary: Reports No Symptoms
Musculoskeletal: Reports No Symptoms
Skin: Reports No Symptoms
Neuro: Reports No Symptoms
Endocrine: Reports No Symptoms
Physical Exam
-
General: Well Developed and Appears Chronically Ill
HEENT: Normocephalic and Atraumatic
Respiratory: Clear to Auscultation
Cardiac: S1/S2; Negative Murmur or Rub
GI: Soft, Nontender, Nondistended and Ostomy
Rectal: Deferred by Provider
Genito-urinary: Deferred by me
Musculoskeletal: No Clubbing, No Cyanosis and No Edema
Skin: Warm and Dry; Negative Rash
Neuro: Awake, Alert and Oriented
Psych: Calm
[2024-06-19] MEDS: LANTUS 0.1 UNITS SC (09:36)
[2024-06-19] MEDS: HEPARIN 5000 UNITS SC ×2 (09:37→17:16)
[2024-06-19] MEDS: PEPCID 20 MG IV (09:38)
[2024-06-19] MEDS: LOPRESSOR 12.5 MG PO ×2 (09:38→20:52)
[2024-06-19] MEDS: NSS (PRESERVATIVE FREE) 8 ML IV (09:39)
--- NOTE | 2024-06-19 10:20 | W.PN.CRS1 ---
Today's Communication / Plan
-
Continue TPN
Full liquids
Local wound care/abx
Assessment/Plan
-
79-year-old female with PMH of HTN, HLD, interstitial lung disease with bronchiectasis, history of pneumonia multiple times, history of spontaneous pneumothorax x 2 who presents 8 days after right hip replacement; 4 days prior to admission, she
started to develop abdominal pain and nausea with decreased bowel function; the abdominal pain and nausea/vomiting continue to worsen; she denies any fevers, chest pain, or urinary symptoms; she does have dyspnea due to the abdominal pain; her last
colonoscopy was 2 years ago which she reports as normal (report not available to me); in the ED, her WBC was 9.3, CR 1.5 and a CTAP was done which shows moderate free air, extraluminal stool adjacent to the mid sigmoid colon with concern of sigmoid
perforation possibly due to diverticulitis
POD 12 ex lap, sigmoidectomy with end colostomy creation for perforated stercoral colitis; extensive washout ~9L for feculent peritonitis
06/12- CT A/P due to increasing abdominal pain did not show any abscesses or drainable collections (discussed with IR)
06/15- right hepatic drain placed by IR
06/16- LLQ drain placed by IR
AFVSS
Leukocytosis present but trending down
Hgb low but stable
Hypokalemia: replaced
Hyperglycemia, nutrition/hospitalist following
+psuedomonas/ecoli in body fluid cx, +ecoli in the blood
-Maintain drains
-TPN renewed
-Will defer PT given dehiscence of wound. If needs to be out of bed, must wear abdominal binder.
�Fulls with vanilla ensure and ok for applesauce
-Wound RN for stoma care/midline wound care, continue dressing changes. Nonadherent pads to exposed bowel
�ABX as per ID
- PO and IV analgesic options
�DVT PPx: subQ heparin
Medical management as per hospitalist
Subjective Data
Procedure
Exploratory laparotomy, lysis of his adhesions, sigmoidectomy, creation of end colostomy on 06/07/24
Subjective Data
Date of Service: June 19, 2024
Intermittent abdominal pain that is manageable. She is eating full liquids.
Objective Data
-
Vital Signs
Temp Pulse Resp BP Pulse Ox
98.0 F 68 14 168/80 94
06/19/24 06:53 06/19/24 06:53 06/19/24 06:53 06/19/24 06:53 06/19/24 06:53
Intake & Output
06/18/24 06/19/24 06/20/24
06:59 06:59 06:59
Intake Total 1690 / 1690 680 / 680 1278 / 1278
Output Total 3367 / 3367 1660 / 1660 942 / 942
Balance -1677 / -1677 -980 / -980 336 / 336
Intake:
Oral fluids 1680 / 1680 660 / 660 480 / 480
IV piggybacks 200 / 200
TPN/PPN 598 / 598
Amount instilled into Drain ( 20 / 20
Total)
Left Lower Abdomen Placed in IR 10 / 10
Right Back 10 / 10 10 / 10
Output:
Liquid stool amount 210 / 210 60 / 60
Colostomy 210 / 210 60 / 60
Drain Output (Total) 57 / 57 42 / 42
Left Lower Abdomen Placed in IR 30 / 30 30 / 30
Right Back 10
Right Lower Abdomen Darius- 15
[place]
Urine, Voided 3100 / 3100 1600 / 1600 900 / 900
Other:
How many times incontinent 1
SATURATED amount urine
Lab Results
06/19/24 05:25
06/19/24 05:25
Physical Exam
-
General: No Acute Distress
Abdomen: Soft, Non Distended, Non Tender and Other (LLQ drain with serous output (30cc); RLQ drain minimal; right back drain with murky fluid that is clearing (10cc); the ostomy is pink and there is function)
Extremities: No Calf Tenderness
Wound: Other (less exudate today but still present; the fascia has )
[2024-06-19 11:00] VITALS: BP 161/78
[2024-06-19] MEDS: ROXICODONE 5 MG PO (11:15)
--- NOTE | 2024-06-19 12:02 | W.PN.ID1 ---
Date of Service
Date of Service: June 19, 2024
Today's Communication
Continue antibiotics.
Assessment / Plan
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
E. coli bacteremia due to bowel perforation, abscess
S/p Exploratory laparotomy, lysis of adhesions, sigmoidectomy, creation of end-colostomy
Ileus
Marked leukocytosis
LONG
Hx Recent right hip replacement
- 06/07 blood cultures both with anaerobe - bacteroides - source bowel perforation; collection
- blood culture from 06/09 now also with a sensitive E coli
- repeat blood cultures x2 06/15 no growth to date
- 06/15 abscess cultures: Pseudomonas aeruginosa and E. coli
Recommendations:
- c/w with zosyn
- c/w micafungin
Follow white count and temperature curve.
Continue with supportive measures.
follow clinically
����������������������������������������������������������
Chief Complaint
-: Other (bowel perforation, secondary peritonitis)
Subjective / Review of Systems
Review of Systems: No Fever
Vital Signs / Physical Exam
Vital Signs
Vital Signs
Temp Pulse Resp BP Pulse Ox
98.2 F 60 18 161/78 94
06/19/24 11:00 06/19/24 11:00 06/19/24 11:00 06/19/24 11:00 06/19/24 11:00
Physical Exam
Constitutional: Acutely Ill and Non-toxic
Cardiovascular: Regular Rate and S1/S2
Pulmonary: Clear, Symmetric and Non Labored
Gastrointestinal: Soft and Other (pinks stoma, some output in the bag)
Skin: Warm and Dry; Negative Rash or Jaundice
Lines: Other (PRINCE drain x2)
Objective Data
Lab Data
Lab Results
06/19/24 05:25
06/19/24 05:25
PT 14.6 Sec (11.4-14.6) 06/07/24 14:37
INR 1.11 06/07/24 14:37
APTT 27.5 Sec (23.4-35.0) 06/07/24 14:37
Estimated Creat Clear 52 ml/min 06/19/24 05:25
Lactic Acid 1.9 mmol/L (0.7-2.0) 06/10/24 03:33
Total Bilirubin 1.0 mg/dl (0.2-1.3) 06/17/24 14:10
AST 37 U/L (14-36) H 06/17/24 14:10
ALT 32 U/L (0-35) 06/17/24 14:10
Alkaline Phosphatase 118 U/L (38-126) 06/17/24 14:10
Most recent labs reviewed.
Micro Results:
06/15/24 16:25 Anaerobic Culture - Preliminary
Abdomen Culture pending. Anaerobic cultures are examined after 3
days incubation. Additional information to follow.
06/16/24 15:50 Anaerobic Culture - Preliminary
Abdomen Culture pending. Anaerobic cultures are examined after 3
days incubation. Additional information to follow.
06/16/24 15:50 Wound Culture - Preliminary
Abdomen Escherichia coli
Gram Stain - Preliminary
06/14/24 09:05 Blood Culture - Final
Blood/Venous No Growth - Final Report
06/14/24 12:56 Blood Culture - Preliminary
Blood/Venous No Growth in 4 days- Final report to follow
06/14/24 12:22 Blood Culture - Preliminary
Blood/Venous No Growth in 4 days- Final report to follow
06/15/24 16:25 Body Fluid Culture - Preliminary
Fluid Pseudomonas aeruginosa
Escherichia coli
Gram Stain - Preliminary
06/09/24 15:02 Blood Culture - Final
Blood/Venous Escherichia coli
Gram Stain - Final
06/07/24 10:27 Blood Culture - Final
Blood/Venous Bacteroides uniformis
Gram Stain - Final
06/07/24 10:26 Blood Culture - Final
Blood/Venous Bacteroides uniformis
Gram Stain - Final
06/09/24 12:09 Blood Culture - Final
Blood/Venous No Growth - Final Report
06/07/24 23:30 MRSA Screen - Final
Nose No Methicillin Resistant Staphylococcus aureus isolated.
06/07/24 10:27 Urine Culture - Final
Urine No Significant Growth
06/07/24 09:19 Influenza Types A & B (EVI) - Final
Nasal Swab Negative for Influenza A & B, NAAT
Negative results must be combined with clinical observations
and patient history.
Nucleic Acid Amplification test (NAAT)performed on the
[employer] platform.
[2024-06-19 12:08] LABS: Glucose - Point of Care 349 mg/dl (70-99)
[2024-06-19] MEDS: MYCAMINE 105 MG IV (12:52)
--- NOTE | 2024-06-19 13:13 | W.PN.UPDATE ---
Update Note
Progress Note Update
Patient seen and examined by Orthopedic surgery this afternoon. She is resting in bed and reports some mild abdominal discomfort. She denies any pain in her right hip at present. Status post right total hip arthroplasty May 30, 2024 by
Sonali. Patient unfortunately sustained bowel perforation and underwent exploratory lap under direction of Dr. Moreon June 07, 2024. On 06/16/24, she went to IR for drainage intra-abdominal fluid (LLQ) revealing 35 mL of turbid fluid;
preliminary cultures (+) E. coli. Abdominal fluid cultures (right hepatic) from 06/15/24 (+) Pseudomonas aeruginosa and E. coli. ID has patient on Zosyn/Microfungin.
PE: Right hip incision with steri-strips intact. No erythema, warmth, or active drainage. Mild diffuse swelling and minimal ecchymosis. Logroll without pain. Gentle ROM hip without pain. Calf is soft and nontender. NVI distally. Able to wiggle
toes and dorsi/plantar flex ankle without difficulty.
Appreciate all teams involved with care of this patient. Continue with formal physical therapy when medically able, THP's. DVT ppx per primary team. Orthopedic surgery will continue to follow along.
[2024-06-19 15:00] VITALS: BP 162/77
[2024-06-19 18:11] LABS: Glucose - Point of Care 315 mg/dl (70-99)
[2024-06-19 19:00] VITALS: BP 161/76
[2024-06-19] MEDS: Parenteral Nutrition, Central 1190 IV (20:49)
[2024-06-19 23:00] VITALS: BP 176/79
[2024-06-20] MEDS: HEPARIN 5000 UNITS SC ×4 (00:14→23:35)
[2024-06-20] MEDS: ZOSYN 100 IV ×5 (00:14→23:35)
[2024-06-20] MEDS: NOVOLOG FLEXPEN-MODERATE RESISTANCE 1 UNITS SC (00:20)
[2024-06-20 00:27] LABS: Glucose - Point of Care 177 mg/dl (70-99)
[2024-06-20 00:30] VITALS: BP 152/80
[2024-06-20 05:16] LABS: Glucose - Point of Care 251 mg/dl (70-99)
[2024-06-20] MEDS: DILAUDID 0.5 MG IV ×3 (05:17→16:08)
[2024-06-20] MEDS: NOVOLOG FLEXPEN-MODERATE RESISTANCE 5 UNITS SC (05:18)
[2024-06-20] MEDS: ZOFRAN 4 MG IV (05:18)
[2024-06-20 06:00] VITALS: BMI 23.0
--- NOTE | 2024-06-20 07:30 | W.PN.HOSP.TC ---
Today's Communication/Plan
-
Patient is unable to get out of bed due to dehiscence of her abdominal wound. Continue current antibiotics. May need to consider PRBCs due to downward trending hemoglobin. White blood cell count continues to trend downwards.
Assessment / Plan
Assessment / Plan
Assessment/Plan:
-Acute sigmoid bowel perforation with acute surgical abdomen:
Patient's lactic acid was 4.3 in the emergency department
The patient was hyponatremic with a sodium of 123, hypochloremic at 93, low bicarb at 18, elevated BUN at 55, and an elevated creatinine at 1.5 in the emergency department
An abdominal CT showed findings suggesting perforated bowel probable at sigmoid colon with associated retroperitoneal and intraperitoneal free air, air-fluid level suggesting abscess formation and extraluminal stool.
Surgery and colorectal surgery consulted
IV fluid support given
Patient is postop from exploratory laparotomy, sigmoidectomy, and creation of end colostomy
Hydromorphone/Zofran as needed
Continue IV Zosyn -white blood cells at 28.5 on 06/10/2024, on 06/11/2024 her white blood cell count was 26.3, on 06/13/2024 her white blood cell count was 18.9, on 06/15/2024 her white blood cell count was at 29.1, white blood cell count 32.2 on
06/16/2024, white blood cells 33.4 on 06/17/2024, white blood cells 21.7 on 06/19/2024, white blood cells 15.9 on 06/20/2024
Appreciate infectious diseases recommendations�continue Zosyn and micafungin -patient has a PICC line and we may consider home IV antibiotics if indicated
The patient has been extubated and is on room air
The patient has been downgraded to telemetry as she no longer is on pressors and is not intubated.
TPN initiated by surgery -TPN continued -would be ruth to consider increasing potassium in TPN formulation as the patient has been repleted multiple times.
Patient is allowed to drink full liquids now
Follow-up CT of the abdomen on 06/15/2024 showed tubular shaped fluid collection along the posterior right lobe of the liver as above with thin enhancing rim, up to 7 cm diameter. Increased as compared with prior and exerts some mass effect against
the right lobe of the liver, suspicious for abscess.
Culture from abdominal abscess preliminary resulted as positive for anaerobic bacteria -
Pseudomonas aeruginosa and E. coli found IR drainage of intra-abdominal fluid.
ID recommends changing of LLQ -was changed
Patient is currently has abdominal dehiscence and cannot sit up or get out of bed without an abdominal binder as per colorectal surgery recommendations.
-Left hand swelling:
Patient had left hand swelling on 06/14/2024
Bilateral upper extremity ultrasound ordered -negative for bilateral upper extremity deep venous thrombosis
-Hyponatremia: Resolved
Patient was found to be hyponatremic with a sodium of 123 in the emergency department.
Sodium is 129 on 06/08/2024 -is 128 on 06/09/2024, is 132 on 06/10/2024, 139 on 06/14/2019
GFR at baseline
Appreciate nephrology recommendations
Nephrology has recommended reducing IV fluids.
-Hypokalemia:
The patient had hypokalemia at 3.0 on 06/13/2024 and 3.1 on 06/13/2024, 3.1 on 06/14/24, potassium was 3.0 on 06/15/2024, K remained 3.0 on 06/16/24, remained 3.0 on 06/17/2024
More potassium repleted on 06/17/2024�continue to follow with labs
Recommend increasing potassium in TPN formulation as the patient is consistently needed ongoing potassium repletion.
Potassium on 06/19/2024 3.5�within the lower range of normal limits.
-Hypomagnesemia:
Patient had a magnesium level of 1.5 on 06/15/2024 -repleted - was 1.8 on 06/16/24 WNL
Continue to follow labs
-Acute kidney injury secondary to bowel perforation/infection/acute process:
Patient's baseline creatinine is 0.8 taken on 05/12/2024
Lactic acid was 4.3 in the emergency department
On presentation to the emergency department on 06/07/2024 the patient had a creatinine of 1.5 indicating acute kidney injury.
On 06/08/2024 creatinine is 2.0 continue to trend creatinine -was 2.4 at 12: 02 on 06/08/2024 and has begun trending down on 06/09/2024 at 2.2, remained 2.2 on 06/10/2024, creatinine was 1.2 on 06/13/2024, creatinine is 0.9 on 06/17/2024 within normal
limits.
Atrial fibrillation with rapid ventricular response:
New diagnosis found postoperatively.
[id number] of 4 due to the age being greater than 75, female, hypertension
Patient is now back in sinus rhythm after receiving Amio
Will start low-dose beta-norma when blood pressure will allow.
Echocardiogram conducted on 06/09/2024 showed aortic sclerosis without stenosis and no aortic regurgitation. Moderate tricuspid regurgitation. Mild pulmonic regurgitation. Pleural effusion present
Continue IV Lopressor
-Essential hypertension:
Appreciate cardiology recommendations
Holding home hypertension meds -will consider resuming medications once patient is more hemodynamically stable postoperatively
Metoprolol tartrate 2.5 mg IV every 6 - continue - will switch to Metoprolol 12.5mg BID when able to take oral meds
Cardiology recommend as needed hydralazine for additional BP control
-Mild cognitive impairment:
Monitoring
-S/p ostomy:
Ostomy on the left side
NGT removed
N.p.o. with sips/chips
Wound healing well, ostomy producing stool, maintain wound care
Colorectal surgery continues to follow
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
appreciate ortho recommendations
enrique removed
will need PT/OT--likely SNF
-Interstitial lung disease with bronchiectasis
-Past medical history of spontaneous pneumothorax
FULL CODE STATUS
DVT prophylaxis: Heparin sq
Stress ulcer prophylaxis: Famotidine
Imaging:
-Abdominal CT conducted on 06/07/2024:
New findings suggesting perforated bowel probable sigmoid colon with associated retroperitoneal and intraperitoneal free air, air-fluid levels suggesting abscess formation and extraluminal stool.
Mild small bowel dilatation probably ileus due to reactive change. New
Tiny bilateral pleural effusions. New
Too small to characterize hypodense left renal lesion likely a benign cyst.
Mild lingular bronchiectasis. Stable
Critical value: Free air.
-Chest x-ray conducted on 06/07/2024:
Endotracheal tube is present with its tip 6 cm above the rafiq.
-Echocardiogram conducted on 06/09/2024:
Normal biventricular size and systolic function without regional wall motion abnormality.
Mild to moderate mitral regurgitation.
Pleural effusion present.
No prior study available for comparison.
-Abdominal CT conducted on 06/15/2024:
IMPRESSION:
1. Somewhat tubular shaped fluid collection along the posterior right lobe of the liver as above with thin enhancing rim, up to 7 cm diameter. Increased as compared with prior and exerts some mass effect against the right lobe of the liver,
suspicious for abscess.
2. Small volume of free fluid adjacent the liver and spleen. Small volume of unorganized free fluid in the anterior and left abdomen as above.
3. Anasarca. Small bilateral pleural effusions with adjacent atelectasis, increased as compared to prior.
4. Trace residual pneumoperitoneum. Partially open abdominal wall incision with some associated abdominal wall emphysema.
5. Mild right hydronephrosis. No ureteral filling defects identified.
6. Small volume of gas within the urinary bladder likely related to previous Ramon catheter.
7. Approximately 1.8 cm left ovarian cyst.
-Upper Limb Bilateral Peripheral Vascular US conducted on 06/15/24:
FINDINGS: PICC is noted in the left brachial, axillary, and subclavian veins. The deep venous systems show normal grayscale appearance, normal conventional Doppler waveform with appropriate response to respiration and augmentation, and normal color
flow Doppler signal. Where feasible, there is expected compressibility of the vessels.
IMPRESSION: Negative for bilateral upper extremity deep venous thrombosis.
Procedures:
-Ultrasound guided drainage of an intra-abdominal fluid collection on 06/15/24:
TECHNIQUE: The risks and benefits of the procedure were discussed with the patient and informed, written consent was obtained. The patient was positioned prone with a right side up. Ultrasound was performed of the right hepatorenal region, which
confirmed a fluid collection superior to the right kidney and adjacent to the liver, as seen on recent CT.
The right posterior flank was prepped and draped in the usual sterile fashion. Maximum sterile barrier techniques were used including wearing cap and mask and sterile gown and sterile gloves and a large sterile sheet and hand hygiene and 2%
chlorhexidine for cutaneous antisepsis. Split doses of Versed and fentanyl were administered by a board certified nurse under continuous hemodynamic monitoring.
Preliminary ultrasound was performed. 2% lidocaine was administered subcutaneously for local anesthesia. Next an 18-gauge needle was advanced into the abdominal fluid collection under real-time ultrasound guidance. Purulent fluid was aspirated
through the needle. An 035 guidewire was then advanced through the needle and positioned within the fluid collection. Following serial dilation of the tract, an 8.5 Mold[place] locking loop catheter was advanced over the guidewire, and the pigtail was
coiled within the collection.
A total of 20 milliliters of purulent fluid was aspirated, and sent for culture and sensitivity.
Anticipated Discharge: > 48 hours
Subjective/Interval History
-
Date of Service: June 20, 2024
Met with patient at the bedside. Observed per discussion with colorectal surgery prior to my encounter with her. Patient appears withdrawn and depressed due to the complexity of her hospital course. She is frustrated that she believes that she is
not making any progress. Patient is aware that she currently is contending with abdominal dehiscence and that she cannot sit up forward without risk of bowel herniation. She describes her pain as a 9 out of 10 but states that number is affected by
how frustrated she is with her progress.
Objective Data
-
Labs:
Labs
06/20/24 07:39
Vital Signs:
Vital Signs
Temp Pulse Resp BP Pulse Ox
97.9 F 65 16 152/80 91
06/19/24 23:00 06/19/24 23:00 06/19/24 23:00 06/20/24 00:30 06/19/24 23:00
I&O
06/19/24 06/20/24 06/21/24
06:59 06:59 06:59
Intake Total 680 / 680 6218 / 6218
Output Total 1660 / 1660 3217 / 3217
Balance -980 / -980 3001 / 3001
Review of Systems
-
History Source: Patient
Constitutional: Reports Fatigue and Weakness
EENT: Reports No Symptoms Reported
Respiratory: Reports No Symptoms
Cardiac: Reports No Symptoms
Abdomen/GI: Reports Abdominal Pain
Breast: Reports No Symptoms
Genitourinary: Reports No Symptoms
Musculoskeletal: Reports No Symptoms
Skin: Reports No Symptoms
Neuro: Reports No Symptoms
Endocrine: Reports No Symptoms
Psych: Reports Depressed and Sad
Physical Exam
-
General: Well Developed and Appears Chronically Ill
HEENT: Normocephalic, Atraumatic and Moist Mucous Membranes
Respiratory: Clear to Auscultation
Cardiac: S1/S2; Negative Murmur, Rub or JVD
Breast: Deferred by me
GI: Normal Bowel Sounds and Ostomy
Rectal: Deferred by Provider
Genito-urinary: Deferred by me
Musculoskeletal: No Clubbing, No Cyanosis and No Edema
Skin: Warm and Dry; Negative Rash or Ulcers
Neuro: Awake, Alert, Oriented and AO x 3
Psych: Depressed and Other (Withdrawn)
[2024-06-20 07:42] VITALS: BP 155/77
[2024-06-20] MEDS: NSS (PRESERVATIVE FREE) 8 ML IV (07:44)
[2024-06-20] MEDS: LOPRESSOR 12.5 MG PO ×2 (07:45→20:49)
[2024-06-20] MEDS: LANTUS 0.1 UNITS SC (07:45)
[2024-06-20] MEDS: PEPCID 20 MG IV (07:45)
[2024-06-20] MEDS: ROXICODONE 5 MG PO ×2 (07:56→13:29)
--- NOTE | 2024-06-20 08:12 | W.PN.UPDATE ---
Update Note
Progress Note Update
Patient seen and examined this AM on rounds. She is resting in bed and reports some mild abdominal discomfort. She denies any pain in her right hip at present. [place] Jun 14 ([place]). Patient unfortunately sustained bowel perforation and
underwent exploratory lap under direction of Dr. Moreno June 07, 2024. On Jun 14. she went to IR for drainage intra-abdominal fluid (LLQ) revealing 35 mL of turbid fluid; preliminary cultures (+) E. coli. Abdominal fluid cultures (right
hepatic) from Jun 14 (+) Pseudomonas aeruginosa and E. coli. ID has patient on Zosyn/Microfungin.
PE: Right hip incision with steri-strips intact. No erythema, warmth, or active drainage. Mild diffuse swelling and minimal ecchymosis. [place] without pain. Gentle ROM hip without pain. Calf is soft and nontender. NVI distally. Able to wiggle
toes and dorsi/plantar flex ankle without difficulty.
Appreciate all teams involved with care of this patient. Continue with formal physical therapy when medically able, THP's. DVT ppx per primary team. Orthopedic surgery will continue to follow along.
--- NOTE | 2024-06-20 08:29 | W.PN.CD ---
Today's Communication / Plan
-
main complaint is abd pain.
Drains intact
HR stable on low dose metoprolol
Repeat ECG
Not on AC at this time in this patient with recent surgery, anemia,i abdominal process and drains.
Monitor anemia. Defer to primary tyrese for management and decisions regarding PRBC
Impression / Plan
-
A/P: 79-year-old woman with history of hypertension, hypercholesterolemia, interstitial lung disease, bronchiectasis, history of spontaneous pneumothorax who underwent right hip replacement 1 week prior to this admit and then presented to [facility] with bowel perforation requiring emergent laparotomy with colectomy and colostomy. She had paroxysms of AF currently in SR.
A-fib with RVR now in SR
-New diagnosis
-CHADSVASC 4 (age greater than 75, female, hypertension). Not on AC at this time in this patient with recent surgery, anemia,intrabdominal process and drains.
-Occurred in the postoperative setting after emergent laparotomy and patient on pressors, now off pressors.
- metoprolol 12.5 mg BID
-HRn controlled
LONG:
-resolved
Hypokalemia, hypomagnesemia:
-management per primary and nephrology-and primary tyrese. Now K 3.5
Postop emergent laparotomy/colectomy for bowel perforation.
-Management directed by colorectal surgery
-now with drains intact
Pulmonary- Patient with a history of pulmonary disease/interstitial lung disease/bronchiectasis and prior history of pneumothorax:
-pulm/crit care signed off
Hypertension:
-BP's elevated. She has pain.
- meotpolol
- can titrate amlodipien as needed
Recent Hip right hip replacement:
-ortho following
Subjective:
Has some abdominal pain
echo:
CONCLUSIONS
Normal biventricular size and systolic function without regional wall motion
abnormality.
Mild to moderate mitral regurgitation.
Pleural effusion present.
No prior study available for comparison.
Physical Exam
Vital Signs/Labs
Vital Signs
Temp Pulse Resp BP Pulse Ox
97.7 F 62 15 155/77 96
06/20/24 07:42 06/20/24 07:45 06/20/24 07:42 06/20/24 07:45 06/20/24 07:42
06/19/24 06/20/24 06/21/24
06:59 06:59 06:59
Actual Weight 68.492 kg 68.521 kg
PT 14.6 Sec (11.4-14.6) 06/07/24 14:37
INR 1.11 06/07/24 14:37
APTT 27.5 Sec (23.4-35.0) 06/07/24 14:37
Magnesium 1.9 mg/dl (1.6-2.3) 06/19/24 05:25
Triglycerides 298 mg/dl (10-149) H 06/18/24 09:07
LDL Cholesterol, Calc -20 mg/dl 06/17/24 14:10
VLDL Cholesterol, Calc 148 mg/dl (0-30) H 06/17/24 14:10
HDL Cholesterol 37 mg/dl 06/17/24 14:10
Physical Exam
Constitutional: Other (abd [ainwit inspiration)
Cardiovascular: Rhythm/rate is irregular
Respiratory: Wheeze Absent and Rhonchi Absent
GI: Other (post op. Ostomye. drains intact )
Neuro/Psych: Alert
Data Reviewed
-
Date of Service: June 20, 2024
Medical Decision Making: Reviewed Test Results
EKG: Ordered by me
Medical Tests (PFT, Pathology etc): Report Reviewed by me and Discussed with Nurse
Labs: Labs Reviewed by me
[2024-06-20 08:30] LABS: Hemoglobin 8.1 g/dL (12.0-16.0); Mean Corp Hgb Conc. 32.4 g/dL (33.0-37.0); Mean Corpuscular Hgb 32.3 pg (27.0-31.0); Mean Corpuscular Volume 99.6 fL (81.0-99.0); Mean Platelet Volume 12.4 fL (7.4-10.4); Platelet Count 232 10^3/uL (130-400); Red Blood Cell Count 2.51 10^6/uL (4.20-5.40); Red Cell Dist. Width 14.9 % (11.5-14.5); White Blood Cell Count 15.9 10^3/uL (4.8-10.8)
--- NOTE | 2024-06-20 09:38 | W.PN.CRS1 ---
Today's Communication / Plan
-
TPN
regular diet
bedrest
await labs
wound care
Assessment/Plan
-
79-year-old female with PMH of HTN, HLD, interstitial lung disease with bronchiectasis, history of pneumonia multiple times, history of spontaneous pneumothorax x 2 who presents 8 days after right hip replacement; 4 days prior to admission, she
started to develop abdominal pain and nausea with decreased bowel function; the abdominal pain and nausea/vomiting continue to worsen; she denies any fevers, chest pain, or urinary symptoms; she does have dyspnea due to the abdominal pain; her last
colonoscopy was 2 years ago which she reports as normal (report not available to me); in the ED, her WBC was 9.3, CR 1.5 and a CTAP was done which shows moderate free air, extraluminal stool adjacent to the mid sigmoid colon with concern of sigmoid
perforation possibly due to diverticulitis
POD 12 ex lap, sigmoidectomy with end colostomy creation for perforated stercoral colitis; extensive washout ~9L for feculent peritonitis
06/12- CT A/P due to increasing abdominal pain did not show any abscesses or drainable collections (discussed with IR)
06/15- right hepatic drain placed by IR
06/16- LLQ drain placed by IR
AFVSS
Leukocytosis present but trending down, today's labs pending
Hgb low but stable
+psuedomonas/ecoli in body fluid cx, +ecoli in the blood
-Maintain drains
-TPN renewed
-Will defer PT given dehiscence of wound. If needs to be out of bed, must wear abdominal binder.
�Advance to regular diet with vanilla Ensure.
-Wound RN for stoma care/midline wound care, continue dressing changes. Nonadherent pads to exposed bowel
�ABX as per ID
- PO and IV analgesic options
�DVT PPx: subQ heparin
-Daughter to be called
-Medical management as per hospitalist
-Turn every two hours and maintain pressure support
Subjective Data
Procedure
Exploratory laparotomy, lysis of his adhesions, sigmoidectomy, creation of end colostomy on 06/07/24
Subjective Data
Date of Service: June 20, 2024
Patient states she has some pain. She denies nausea or vomiting. She is not that hungry. She is tolerating fulls. Her ostomy has function.
Objective Data
-
Vital Signs
Temp Pulse Resp BP Pulse Ox
97.7 F 62 15 155/77 96
06/20/24 07:42 06/20/24 07:45 06/20/24 07:42 06/20/24 07:45 06/20/24 07:42
Intake & Output
06/19/24 06/20/24 06/21/24
06:59 06:59 06:59
Intake Total 680 / 680 6218 / 6218
Output Total 1660 / 1660 3217 / 3217
Balance -980 / -980 3001 / 3001
Intake:
Oral fluids 660 / 660 3750 / 3750
IV fluids (Total) 100 / 100
IV piggybacks 550 / 550
TPN/PPN 1798 / 1798
Amount instilled into Drain (
Total)
Left Lower Abdomen Placed in IR
Right Back
Output:
Liquid stool amount 60 / 60 125 / 125
Colostomy 60 / 60 125 / 125
Drain Output (Total) /
Left Lower Abdomen Placed in IR 55 / 55
Right Back
Right Lower Abdomen Darius-
[place]
Urine, Voided 1600 / 1600 3000 / 3000
Other:
Number of approximated MODERATE 2
amounts of urine
How many times incontinent 1 1 1
SATURATED amount urine
Physical Exam
-
General: No Acute Distress
Abdomen: Tender (around mildline incision. ) and Other (surgical drain is murky, IR drain near liver and LLQ both yellow/thin. Stoma warm and pink with function. )
Wound: Dressing Changed and Other (exudate on wound, fascia has , xeroform placed on top)
[2024-06-20 10:00] LABS: Hematocrit 26.2 % (37.0-47.0); Hemoglobin 8.4 g/dL (12.0-16.0); Mean Corp Hgb Conc. 32.1 g/dL (33.0-37.0); Mean Corpuscular Hgb 32.8 pg (27.0-31.0); Mean Corpuscular Volume 102.3 fL (81.0-99.0); Mean Platelet Volume 12.1 fL (7.4-10.4); Platelet Count 240 10^3/uL (130-400); Red Blood Cell Count 2.56 10^6/uL (4.20-5.40); Red Cell Dist. Width 15.1 % (11.5-14.5); White Blood Cell Count 15.5 10^3/uL (4.8-10.8)
[2024-06-20 10:32] LABS: ALT (SGPT) 31 U/L (0-35); AST (SGOT) 35 U/L (14-36); Albumin 2.2 g/dl (3.5-5.0); Alkaline Phosphatase 107 U/L (38-126); Blood Urea Nitrogen 30 mg/dl (7-17); Calcium 8.4 mg/dl (8.4-10.2); Carbon Dioxide 24 mmol/L (22-30); Chloride 99 mmol/L (98-107); Estimated Creatinine Clearance 47 ml/min; Magnesium 2.3 mg/dl (1.6-2.3); Phosphorus 6.8 mg/dl (2.5-4.5); Potassium 7.5 mmol/L (3.5-5.1); Sodium 131 mmol/L (135-145); Total Bilirubin 0.7 mg/dl (0.2-1.3); Total Protein 4.6 g/dl (6.3-8.2); Triglycerides 525 mg/dl (10-149); eGFR 57.66
[2024-06-20 10:42] LABS: Glucose 1138 mg/dl (70-99)
[2024-06-20 11:24] LABS: Blood Urea Nitrogen 31 mg/dl (7-17); Calcium 8.1 mg/dl (8.4-10.2); Carbon Dioxide 30 mmol/L (22-30); Chloride 102 mmol/L (98-107); Estimated Creatinine Clearance 47 ml/min; Glucose 324 mg/dl (70-99); Potassium 3.1 mmol/L (3.5-5.1); Sodium 137 mmol/L (135-145); eGFR 57.66
[2024-06-20] MEDS: NOVOLOG FLEXPEN-MODERATE RESISTANCE 7 UNITS SC (11:32)
[2024-06-20] MEDS: MYCAMINE 105 MG IV (11:45)
--- NOTE | 2024-06-20 12:09 | PTCARENOTE ---
lab called earlier in shift and reported a contaminated specimen that they received for morning labs. this RN riley new specimen from PICC line per P and P. lab called again and reported an elevated K and glucose levels. MD Jade made aware and
TPN placed on pause per his request. straight stick blood specimen obtained and sent. new results reported to MD Jade, adjustments made to medications, TPN resumed per order.
--- NOTE | 2024-06-20 12:21 | CM ---
Chart reviewed and met with pt
POD# 12 - ex lap, sigmoidectomy with end colostomy creation for perforated stercoral colitis; extensive washout
Drains placed by IR on 06/16, 06/17
TPN, advanced to regular diet
Wound Care following
PT deferred at this time due to wound dehiscence
Receiving antibiotics; ID following
CM will follow for d/c needs
Plan - TBD based on pt needs - snf vs acute rehab
[2024-06-20] MEDS: KCL 100 IV (13:23)
[2024-06-20 14:31] LABS: Phosphorus 3.2 mg/dl (2.5-4.5); Triglycerides 267 mg/dl (10-149)
--- NOTE | 2024-06-20 15:34 | W.PN.ID1 ---
Date of Service
Date of Service: June 20, 2024
Today's Communication
c/w zosyn and micafungin
Assessment / Plan
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
E. coli bacteremia due to bowel perforation, abscess
S/p Exploratory laparotomy, lysis of adhesions, sigmoidectomy, creation of end-colostomy
Ileus
Marked leukocytosis
LONG
Hx Recent right hip replacement
- 06/07 blood cultures both with anaerobe - bacteroides - source bowel perforation; collection
- blood culture from 06/09 now also with a sensitive E coli
- repeat blood cultures x2 06/15 no growth to date
- 06/15 abscess cultures: Pseudomonas aeruginosa and E. coli
Recommendations:
- c/w with zosyn
- c/w micafungin
Follow white count and temperature curve.
Continue with supportive measures.
follow clinically
����������������������������������������������������������
Chief Complaint
-: Other (bowel perforation, secondary peritonitis)
Subjective / Review of Systems
afebrile
bp stable
partial dehiscence -full dehiscence today - no purulence seen on photos taken by CRS PA - now with wound vac
stoma pink
Vital Signs / Physical Exam
Vital Signs
Vital Signs
Temp Pulse Resp BP Pulse Ox
97.7 F 62 15 155/77 96
06/20/24 07:42 06/20/24 07:45 06/20/24 07:42 06/20/24 07:45 06/20/24 07:42
Physical Exam
Constitutional: Acutely Ill and Chronically Ill
Cardiovascular: Regular Rate and S1/S2; Negative Murmur or Rub
Pulmonary: Clear and Symmetric; Negative Wheezes or Rales
Gastrointestinal: Soft, Non Tender, Non Distended and Normal Bowel Sounds
Skin: Warm and Dry; Negative Rash or Jaundice
Wound: Other (full dehiscence today - no purulence seen on photos taken by CRS PA - now with wound vac; stoma pink)
Objective Data
Lab Data
Lab Results
06/20/24 09:47
06/20/24 10:54
PT 14.6 Sec (11.4-14.6) 06/07/24 14:37
INR 1.11 06/07/24 14:37
APTT 27.5 Sec (23.4-35.0) 06/07/24 14:37
Estimated Creat Clear 47 ml/min 06/20/24 10:54
Lactic Acid 1.9 mmol/L (0.7-2.0) 06/10/24 03:33
Total Bilirubin 0.7 mg/dl (0.2-1.3) 06/20/24 09:47
AST 35 U/L (14-36) 06/20/24 09:47
ALT 31 U/L (0-35) 06/20/24 09:47
Alkaline Phosphatase 107 U/L (38-126) 06/20/24 09:47
Most recent labs reviewed.
Micro Results:
06/15/24 16:25 Body Fluid Culture - Final
Fluid Pseudomonas aeruginosa
Escherichia coli
Gram Stain - Final
06/15/24 16:25 Anaerobic Culture - Final
Abdomen Eggerthella lenta
06/16/24 15:50 Anaerobic Culture - Preliminary
Abdomen NO ANAEROBES ISOLATED
06/14/24 12:56 Blood Culture - Final
Blood/Venous No Growth - Final Report
06/14/24 12:22 Blood Culture - Final
Blood/Venous No Growth - Final Report
06/16/24 15:50 Wound Culture - Preliminary
Abdomen Escherichia coli
Gram Stain - Preliminary
06/14/24 09:05 Blood Culture - Final
Blood/Venous No Growth - Final Report
06/09/24 15:02 Blood Culture - Final
Blood/Venous Escherichia coli
Gram Stain - Final
06/07/24 10:27 Blood Culture - Final
Blood/Venous Bacteroides uniformis
Gram Stain - Final
06/07/24 10:26 Blood Culture - Final
Blood/Venous Bacteroides uniformis
Gram Stain - Final
06/09/24 12:09 Blood Culture - Final
Blood/Venous No Growth - Final Report
06/07/24 23:30 MRSA Screen - Final
Nose No Methicillin Resistant Staphylococcus aureus isolated.
06/07/24 10:27 Urine Culture - Final
Urine No Significant Growth
06/07/24 09:19 Influenza Types A & B (EVI) - Final
Nasal Swab Negative for Influenza A & B, NAAT
Negative results must be combined with clinical observations
and patient history.
Nucleic Acid Amplification test (NAAT)performed on the
[employer] platform.
[2024-06-20 16:00] VITALS: BP 149/67
[2024-06-20] MEDS: NEURONTIN 100 MG PO (16:01)
--- NOTE | 2024-06-20 17:14 | W.PN.UPDATE ---
Update Note
Progress Note Update
Seen and examined by me independently in collaboration with the medical device sales representative.
Lab data and imaging data reviewed.
Addendum as below :
Patient currently put on a regular diet. Abdominal pain manageable. Denies any nausea vomiting.
Denies shortness of breath. No chest pain.
Chest clear anteriorly. Abdomen soft. 2 PRINCE drains and colostomy noted. Colostomy working.
Repeat labs shows the a.m. labs were spurious and probably related to drawn from the same hand as the TPN.
Hyperglycemia noted possibly combination of TPN and postoperative state. Hemoglobin A1c 5.7. Insulin adjusted for today based on the sliding scale extra doses of insulin. Will reevaluate again tomorrow.
[2024-06-20] MEDS: NOVOLOG FLEXPEN 3 UNITS SC (17:42)
[2024-06-20 17:43] LABS: Glucose - Point of Care 224 mg/dl (70-99)
[2024-06-20] MEDS: NOVOLOG FLEXPEN-MODERATE RESISTANCE 3 UNITS SC (17:43)
[2024-06-20] MEDS: Parenteral Nutrition, Central 1190 IV (21:49)
[2024-06-20] MEDS: NEURONTIN 300 MG PO (21:55)
[2024-06-20] MEDS: NORVASC 5 MG PO (21:55)
[2024-06-20 23:00] VITALS: BP 153/76
[2024-06-21 00:12] LABS: Glucose - Point of Care 181 mg/dl (70-99)
[2024-06-21] MEDS: NOVOLOG FLEXPEN 3 UNITS SC ×3 (00:29→18:06)
[2024-06-21] MEDS: NOVOLOG FLEXPEN-MODERATE RESISTANCE 1 UNITS SC ×2 (00:29→12:19)
[2024-06-21 04:45] VITALS: BMI 23.2
[2024-06-21 05:11] LABS: Glucose - Point of Care 101 mg/dl (70-99)
[2024-06-21] MEDS: NOVOLOG FLEXPEN-MODERATE RESISTANCE SC (05:13)
[2024-06-21] MEDS: ZOSYN 100 IV ×4 (05:13→23:29)
[2024-06-21] MEDS: NOVOLOG FLEXPEN SC (05:16)
[2024-06-21 06:45] LABS: Hematocrit 24.5 % (37.0-47.0); Hemoglobin 8.1 g/dL (12.0-16.0); Mean Corp Hgb Conc. 33.1 g/dL (33.0-37.0); Mean Corpuscular Hgb 30.9 pg (27.0-31.0); Mean Corpuscular Volume 93.5 fL (81.0-99.0); Platelet Count 255 10^3/uL (130-400); Red Blood Cell Count 2.62 10^6/uL (4.20-5.40); Red Cell Dist. Width 14.8 % (11.5-14.5); White Blood Cell Count 15.7 10^3/uL (4.8-10.8)
[2024-06-21 07:00] VITALS: BP 150/79
--- NOTE | 2024-06-21 07:30 | W.PN.HOSP.TC ---
Addendum entered and electronically signed by Martir Jade MD 06/21/24 11:27:
Seen and examined by me independently in collaboration with the medical services manager.
Lab data and imaging data reviewed.
Addendum as below :
Patient tolerating regular diet. No nausea vomiting. Not much abdominal pain. Not requiring frequent pain medication.
Denies any shortness of breath or chest pain. No fever or chills.
Chest clear anteriorly.
Abdomen soft.
Cleared for out of bed by general surgery today.
Continue with antibiotics per ID
Improved blood sugars with insulin adjustments. Continue the current dose of insulin and follow-up. Patient still on TPN.
Original Note:
Today's Communication/Plan
-
Continue current antibiotic treatment. White blood cell count remains elevated despite antibiotics. Abdominal dehiscence is limiting the patient from being able to get out of bed or sit upright. Recommend abdominal binder if the patient is to be
moved from the laying position.
Assessment / Plan
Assessment / Plan
Assessment/Plan:
-Acute sigmoid bowel perforation with acute surgical abdomen:
Patient's lactic acid was 4.3 in the emergency department
The patient was hyponatremic with a sodium of 123, hypochloremic at 93, low bicarb at 18, elevated BUN at 55, and an elevated creatinine at 1.5 in the emergency department
An abdominal CT showed findings suggesting perforated bowel probable at sigmoid colon with associated retroperitoneal and intraperitoneal free air, air-fluid level suggesting abscess formation and extraluminal stool.
Surgery and colorectal surgery consulted
IV fluid support given
Patient is postop from exploratory laparotomy, sigmoidectomy, and creation of end colostomy
Hydromorphone/Zofran as needed
Continue IV Zosyn -white blood cells at 28.5 on 06/10/2024, on 06/11/2024 her white blood cell count was 26.3, on 06/13/2024 her white blood cell count was 18.9, on 06/15/2024 her white blood cell count was at 29.1, white blood cell count 32.2 on
06/16/2024, white blood cells 33.4 on 06/17/2024, white blood cells 21.7 on 06/19/2024, white blood cells 15.5 on 06/20/2024, white blood cell count on 06/21/2024 was 15.7
Appreciate infectious diseases recommendations�continue Zosyn and micafungin -patient has a PICC line and we may consider home IV antibiotics if indicated
The patient has been extubated and is on room air
The patient has been downgraded to telemetry as she no longer is on pressors and is not intubated.
TPN initiated by surgery -TPN continued -would be ruth to consider increasing potassium in TPN formulation as the patient has been repleted multiple times.
Patient is allowed to drink full liquids now
Follow-up CT of the abdomen on 06/15/2024 showed tubular shaped fluid collection along the posterior right lobe of the liver as above with thin enhancing rim, up to 7 cm diameter. Increased as compared with prior and exerts some mass effect against
the right lobe of the liver, suspicious for abscess.
Culture from abdominal abscess preliminary resulted as positive for anaerobic bacteria -
Pseudomonas aeruginosa and E. coli found IR drainage of intra-abdominal fluid.
ID recommends changing of LLQ -was changed
Patient has been advanced to a regular diet.
Patient is currently has abdominal dehiscence and cannot sit up or get out of bed without an abdominal binder as per colorectal surgery recommendations.
-Left hand swelling:
Patient had left hand swelling on 06/14/2024
Bilateral upper extremity ultrasound ordered -negative for bilateral upper extremity deep venous thrombosis
-Hyponatremia: Resolved
Patient was found to be hyponatremic with a sodium of 123 in the emergency department.
Sodium is 129 on 06/08/2024 -is 128 on 06/09/2024, is 132 on 06/10/2024, 139 on 06/14/2019
GFR at baseline
Appreciate nephrology recommendations
Nephrology has recommended reducing IV fluids.
-Hypokalemia:
The patient had hypokalemia at 3.0 on 06/13/2024 and 3.1 on 06/13/2024, 3.1 on 06/14/24, potassium was 3.0 on 06/15/2024, K remained 3.0 on 06/16/24, remained 3.0 on 06/17/2024
More potassium repleted on 06/17/2024ontinue to follow with labs
Recommend increasing potassium in TPN formulation as the patient is consistently needed ongoing potassium repletion.
Potassium on 06/19/2024 3.5�within the lower range of normal limits.
-Hypomagnesemia:
Patient had a magnesium level of 1.5 on 06/15/2024 -repleted - was 1.8 on 06/16/24 WNL
Continue to follow labs
-Acute kidney injury secondary to bowel perforation/infection/acute process:
Patient's baseline creatinine is 0.8 taken on 05/12/2024
Lactic acid was 4.3 in the emergency department
On presentation to the emergency department on 06/07/2024 the patient had a creatinine of 1.5 indicating acute kidney injury.
On 06/08/2024 creatinine is 2.0 continue to trend creatinine -was 2.4 at 12: 02 on 06/08/2024 and has begun trending down on 06/09/2024 at 2.2, remained 2.2 on 06/10/2024, creatinine was 1.2 on 06/13/2024, creatinine is 0.9 on 06/17/2024 within normal
limits.
Atrial fibrillation with rapid ventricular response:
New diagnosis found postoperatively.
[id number] of 4 due to the age being greater than 75, female, hypertension
Patient is now back in sinus rhythm after receiving Amio
Will start low-dose beta-norma when blood pressure will allow.
Echocardiogram conducted on 06/09/2024 showed aortic sclerosis without stenosis and no aortic regurgitation. Moderate tricuspid regurgitation. Mild pulmonic regurgitation. Pleural effusion present
Continue IV Lopressor
-Essential hypertension:
Appreciate cardiology recommendations
Holding home hypertension meds -will consider resuming medications once patient is more hemodynamically stable postoperatively
Metoprolol tartrate 2.5 mg IV every 6 - continue - will switch to Metoprolol 12.5mg BID when able to take oral meds
Cardiology recommend as needed hydralazine for additional BP control
-Mild cognitive impairment:
Monitoring
-S/p ostomy:
Ostomy on the left side
NGT removed
N.p.o. with sips/chips
Wound healing well, ostomy producing stool, maintain wound care
Colorectal surgery continues to follow
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
appreciate ortho recommendations
enrique removed
will need PT/OT--likely SNF
-Interstitial lung disease with bronchiectasis
-Past medical history of spontaneous pneumothorax
FULL CODE STATUS
DVT prophylaxis: Heparin sq
Stress ulcer prophylaxis: Famotidine
Imaging:
-Abdominal CT conducted on 06/07/2024:
New findings suggesting perforated bowel probable sigmoid colon with associated retroperitoneal and intraperitoneal free air, air-fluid levels suggesting abscess formation and extraluminal stool.
Mild small bowel dilatation probably ileus due to reactive change. New
Tiny bilateral pleural effusions. New
Too small to characterize hypodense left renal lesion likely a benign cyst.
Mild lingular bronchiectasis. Stable
Critical value: Free air.
-Chest x-ray conducted on 06/07/2024:
Endotracheal tube is present with its tip 6 cm above the rafiq.
-Echocardiogram conducted on 06/09/2024:
Normal biventricular size and systolic function without regional wall motion abnormality.
Mild to moderate mitral regurgitation.
Pleural effusion present.
No prior study available for comparison.
-Abdominal CT conducted on 06/15/2024:
IMPRESSION:
1. Somewhat tubular shaped fluid collection along the posterior right lobe of the liver as above with thin enhancing rim, up to 7 cm diameter. Increased as compared with prior and exerts some mass effect against the right lobe of the liver,
suspicious for abscess.
2. Small volume of free fluid adjacent the liver and spleen. Small volume of unorganized free fluid in the anterior and left abdomen as above.
3. Anasarca. Small bilateral pleural effusions with adjacent atelectasis, increased as compared to prior.
4. Trace residual pneumoperitoneum. Partially open abdominal wall incision with some associated abdominal wall emphysema.
5. Mild right hydronephrosis. No ureteral filling defects identified.
6. Small volume of gas within the urinary bladder likely related to previous Ramon catheter.
7. Approximately 1.8 cm left ovarian cyst.
-Upper Limb Bilateral Peripheral Vascular US conducted on 06/15/24:
FINDINGS: PICC is noted in the left brachial, axillary, and subclavian veins. The deep venous systems show normal grayscale appearance, normal conventional Doppler waveform with appropriate response to respiration and augmentation, and normal color
flow Doppler signal. Where feasible, there is expected compressibility of the vessels.
IMPRESSION: Negative for bilateral upper extremity deep venous thrombosis.
Procedures:
-Ultrasound guided drainage of an intra-abdominal fluid collection on 06/15/24:
TECHNIQUE: The risks and benefits of the procedure were discussed with the patient and informed, written consent was obtained. The patient was positioned prone with a right side up. Ultrasound was performed of the right hepatorenal region, which
confirmed a fluid collection superior to the right kidney and adjacent to the liver, as seen on recent CT.
The right posterior flank was prepped and draped in the usual sterile fashion. Maximum sterile barrier techniques were used including wearing cap and mask and sterile gown and sterile gloves and a large sterile sheet and hand hygiene and 2%
chlorhexidine for cutaneous antisepsis. Split doses of Versed and fentanyl were administered by a board certified nurse under continuous hemodynamic monitoring.
Preliminary ultrasound was performed. 2% lidocaine was administered subcutaneously for local anesthesia. Next an 18-gauge needle was advanced into the abdominal fluid collection under real-time ultrasound guidance. Purulent fluid was aspirated
through the needle. An 035 guidewire was then advanced through the needle and positioned within the fluid collection. Following serial dilation of the tract, an 8.5 Pashto locking loop catheter was advanced over the guidewire, and the pigtail was
coiled within the collection.
A total of 20 milliliters of purulent fluid was aspirated, and sent for culture and sensitivity.
Anticipated Discharge: 24 - 48 hours
Subjective/Interval History
-
Date of Service: June 21, 2024
Met with patient at the bedside. She is laying in the bed fatigued and continues to suffer from abdominal pain. She continues to express frustration with her lack of progress. She was seen watching [employer] television.
Objective Data
-
Labs:
Laboratory Results
06/21/24
06:35
WBC 15.7 H
Hgb 8.1 L
Hct 24.5 L
Plt Count 255
Sodium 136
Potassium 3.6
Chloride 103
Carbon Dioxide 27
BUN 36 H
Creatinine 0.8
Glucose 111 H
Calcium 8.0 L
Total Bilirubin 0.7
AST 34
ALT 32
Alkaline Phosphatase 147 H
Vital Signs:
Vital Signs
Temp Pulse Resp BP Pulse Ox
97.8 F 74 14 141/68 95
06/21/24 07:00 06/21/24 08:15 06/21/24 07:00 06/21/24 08:15 06/21/24 07:00
I&O
06/20/24 06/21/24 06/22/24
06:59 06:59 06:59
Intake Total 6218 / 6218 3323 / 3323
Output Total 3217 / 3217 140 / 140
Balance 3001 / 3001 3183 / 3183
Review of Systems
-
History Source: Patient
All other systems: Reviewed and negative
Constitutional: Reports No Symptoms
EENT: Reports No Symptoms Reported
Respiratory: Reports No Symptoms
Cardiac: Reports No Symptoms
Abdomen/GI: Reports Abdominal Pain
Breast: Reports No Symptoms
Genitourinary: Reports No Symptoms
Musculoskeletal: Reports No Symptoms
Skin: Reports No Symptoms
Neuro: Reports No Symptoms
Endocrine: Reports No Symptoms
Hematologic / Lymphatic: Reports No Symptoms
Allergy / Immunology: Reports No Symptoms
Physical Exam
-
General: Well Developed, Well Nourished and Pain
HEENT: Normocephalic and Atraumatic
Respiratory: Clear to Auscultation
Cardiac: S1/S2; Negative Murmur or Rub
GI: Soft, Nontender, Nondistended and Normal Bowel Sounds
Rectal: Deferred by Provider
Genito-urinary: Deferred by me
Musculoskeletal: No Clubbing, No Cyanosis and No Edema
Skin: Warm and Dry
Neuro: Awake, Alert, Oriented and AO x 3
Psych: Calm and Depressed
[2024-06-21 07:47] LABS: Triglycerides 220 mg/dl (10-149)
[2024-06-21] MEDS: HEPARIN 5000 UNITS SC ×3 (08:13→23:29)
[2024-06-21] MEDS: LANTUS 0.18 UNITS SC (08:13)
[2024-06-21] MEDS: NEURONTIN 100 MG PO ×2 (08:14→16:04)
[2024-06-21] MEDS: LOPRESSOR 12.5 MG PO ×2 (08:15→21:11)
[2024-06-21] MEDS: DILAUDID 0.5 MG IV ×2 (08:19→21:33)
[2024-06-21] MEDS: KCL 100 IV (08:20)
[2024-06-21 09:28] LABS: ALT (SGPT) 32 U/L (0-35); AST (SGOT) 34 U/L (14-36); Albumin 2.2 g/dl (3.5-5.0); Alkaline Phosphatase 147 U/L (38-126); Blood Urea Nitrogen 36 mg/dl (7-17); Carbon Dioxide 27 mmol/L (22-30); Chloride 103 mmol/L (98-107); Estimated Creatinine Clearance 58 ml/min; Glucose 111 mg/dl (70-99); Potassium 3.6 mmol/L (3.5-5.1); Sodium 136 mmol/L (135-145); Total Bilirubin 0.7 mg/dl (0.2-1.3); Total Protein 5.1 g/dl (6.3-8.2); eGFR > 60.00
--- NOTE | 2024-06-21 10:12 | PTOTSP ---
CHART REVIEWED AND SPOKE WITH COLORECTAL PA WHO REQUESTED THAT THERAPY BE DEFERRED AT THIS POINT PATIENT WITH LARGE WOUND DEHISCENCE AND NOW WITH WOUND VAC. COLORECTAL WILL RECONSULT WHEN APPROPRIATE FOR THERAPY. SPOKE WITH O.T. REGARDING
PATIENT. WILL DISCHARGE FROM THERAPY AT THIS TIME.
--- NOTE | 2024-06-21 10:51 | W.PN.ID1 ---
Date of Service
Date of Service: June 21, 2024
Today's Communication
- c/w with zosyn
- c/w micafungin
Assessment / Plan
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
E. coli bacteremia due to bowel perforation, abscess
S/p Exploratory laparotomy, lysis of adhesions, sigmoidectomy, creation of end-colostomy
Ileus
Marked leukocytosis
LONG
Hx Recent right hip replacement
- 06/07 blood cultures both with anaerobe - bacteroides - source bowel perforation; collection
- blood culture from 06/09 now also with a sensitive E coli
- repeat blood cultures x2 06/15 no growth to date
- 06/15 abscess cultures: Pseudomonas aeruginosa and E. coli
Recommendations:
- c/w with zosyn
- c/w micafungin
Follow white count and temperature curve.
Continue with supportive measures.
follow clinically
����������������������������������������������������������
Chief Complaint
-: Other (bowel perforation, secondary peritonitis)
Subjective / Review of Systems
afebrile
bp stable
no events overnight
note plan to continue with medical management of dehiscence - vac therapy
Vital Signs / Physical Exam
Vital Signs
Vital Signs
Temp Pulse Resp BP Pulse Ox
97.8 F 74 14 141/68 95
06/21/24 07:00 06/21/24 08:15 06/21/24 07:00 06/21/24 08:15 06/21/24 07:00
Physical Exam
Constitutional: Acutely Ill and Chronically Ill
Cardiovascular: Regular Rate and S1/S2; Negative Murmur or Rub
Pulmonary: Clear and Symmetric; Negative Wheezes or Rales
Gastrointestinal: Soft, Non Tender, Non Distended and Normal Bowel Sounds
Skin: Warm and Dry; Negative Rash or Jaundice
Wound: Other (stoma is pink)
Psychological: Other
Objective Data
Lab Data
Lab Results
06/21/24 06:35
06/21/24 06:35
PT 14.6 Sec (11.4-14.6) 06/07/24 14:37
INR 1.11 06/07/24 14:37
APTT 27.5 Sec (23.4-35.0) 06/07/24 14:37
Estimated Creat Clear 58 ml/min 06/21/24 06:35
Lactic Acid 1.9 mmol/L (0.7-2.0) 06/10/24 03:33
Total Bilirubin 0.7 mg/dl (0.2-1.3) 06/21/24 06:35
AST 34 U/L (14-36) 06/21/24 06:35
ALT 32 U/L (0-35) 06/21/24 06:35
Alkaline Phosphatase 147 U/L (38-126) H 06/21/24 06:35
Most recent labs reviewed.
Fluid Cult/not urine Final 06/20/24-1308
Moderate Pseudomonas aeruginosa of two morphotypes
Moderate Escherichia coli
Organism 1 Pseudomonas aeruginosa
Organism 2 Escherichia coli
P.AERU E.COLI
M.I.C. RX M.I.C. RX
--------- --- --------- ---
Amoxicillin/Potas. Clavulanate <=8/4 S
Ampicillin <=8 S
Ampicillin/Sulbactam <=4/2 S
Aztreonam 8 S <=4 S
Cefazolin <=2 S
Cefepime <=2 S
Ceftazidime 4 S
Ertapenem <=0.5 S
Ciprofloxacin <=0.25 S <=0.25 S
Gentamicin <=2 S
Meropenem <=1 S <=1 S
Piperacillin/Tazobactam <=8 S <=8 S
Tetracycline <=4 S
Tobramycin <=2 S <=2 S
Trimethoprim/Sulfamethoxazole <=2/38 S
Micro Results:
06/15/24 16:25 Body Fluid Culture - Final
Fluid Pseudomonas aeruginosa
Escherichia coli
Gram Stain - Final
06/15/24 16:25 Anaerobic Culture - Final
Abdomen Eggerthella lenta
06/16/24 15:50 Anaerobic Culture - Preliminary
Abdomen NO ANAEROBES ISOLATED
06/14/24 12:56 Blood Culture - Final
Blood/Venous No Growth - Final Report
06/14/24 12:22 Blood Culture - Final
Blood/Venous No Growth - Final Report
06/16/24 15:50 Wound Culture - Preliminary
Abdomen Escherichia coli
Gram Stain - Preliminary
06/14/24 09:05 Blood Culture - Final
Blood/Venous No Growth - Final Report
06/09/24 15:02 Blood Culture - Final
Blood/Venous Escherichia coli
Gram Stain - Final
06/07/24 10:27 Blood Culture - Final
Blood/Venous Bacteroides uniformis
Gram Stain - Final
06/07/24 10:26 Blood Culture - Final
Blood/Venous Bacteroides uniformis
Gram Stain - Final
06/09/24 12:09 Blood Culture - Final
Blood/Venous No Growth - Final Report
06/07/24 23:30 MRSA Screen - Final
Nose No Methicillin Resistant Staphylococcus aureus isolated.
06/07/24 10:27 Urine Culture - Final
Urine No Significant Growth
06/07/24 09:19 Influenza Types A & B (EVI) - Final
Nasal Swab Negative for Influenza A & B, NAAT
Negative results must be combined with clinical observations
and patient history.
Nucleic Acid Amplification test (NAAT)performed on the
[employer] ID NOW platform.
--- NOTE | 2024-06-21 11:04 | W.PN.CRS1 ---
Addendum entered and electronically signed by Jesse Moreno MD 06/21/24 11:16:
spoke with daughter over phone and provided updates
Original Note:
Today's Communication / Plan
-
encourage OOB with binder
Assessment/Plan
-
79-year-old female with PMH of HTN, HLD, interstitial lung disease with bronchiectasis, history of pneumonia multiple times, history of spontaneous pneumothorax x 2 who presents 8 days after right hip replacement; 4 days prior to admission, she
started to develop abdominal pain and nausea with decreased bowel function; the abdominal pain and nausea/vomiting continue to worsen; she denies any fevers, chest pain, or urinary symptoms; she does have dyspnea due to the abdominal pain; her last
colonoscopy was 2 years ago which she reports as normal (report not available to me); in the ED, her WBC was 9.3, CR 1.5 and a CTAP was done which shows moderate free air, extraluminal stool adjacent to the mid sigmoid colon with concern of sigmoid
perforation possibly due to diverticulitis
06/07 (POD 14) ex lap, sigmoidectomy with end colostomy creation for perforated stercoral colitis; extensive washout ~9L for feculent peritonitis
- extubated and pressors weaned off by POD 1; initially oliguric, but UOP recovered; A-fib with RVR, stabilized on Amio
- 06/12 CT - c/f subhepatic abscess, d/w [place] and felt that it more likely represents free fluid; remainder post-op changes
- 06/13 opened enrique at inferior midline for murky drainage
- 06/15 mild fascial dehiscence noted; CT -subhepatic abscess increased, fluid along the left gutter; s/p IR drain of subhepatic abscess�20 mL pus
- 06/16 s/p IR drain of left gutter�35 mL of turbid fluid
- 06/18 complete fascial dehiscence
- 3 vac placed with white sponge at 75mmHg
AFVSS
WBC 15.7 from 15.5, Hb 8.1 from 8.4, Cr 1.0
-Fascial dehiscence
�Continue wound VAC with white sponge at 75 mmHg; change MWF
�Recommend OOB and ambulate twice daily with abdominal binder; will reconsult PT
� Pain control with tylenol, oxycodone, dilaudid
� A-fib with RVR, now in SR, appreciate cardiology
� Continue DVT PPx with subQ heparin
� Continue regular diet
-cont TPN until taking in sufficient nutrition oral
� Appreciate hospitalist
Subjective Data
Procedure
Exploratory laparotomy, lysis of his adhesions, sigmoidectomy, creation of end colostomy on 06/07/24
Subjective Data
Date of Service: June 21, 2024
No issues overnight. Patient feeling sleepy. Denies N/V, tolerating solid foods. Having ostomy function.
Objective Data
-
Vital Signs
Temp Pulse Resp BP Pulse Ox
97.8 F 74 14 141/68 95
06/21/24 07:00 06/21/24 08:15 06/21/24 07:00 06/21/24 08:15 06/21/24 07:00
Intake & Output
06/20/24 06/21/24 06/22/24
06:59 06:59 06:59
Intake Total 6218 / 6218 3323 / 3323 20 / 20
Output Total 3217 / 3217 140 / 140 125 / 125
Balance 3001 / 3001 3183 / 3183 -105 / -105
Intake:
Oral fluids 3750 / 3750 1490 / 1490
Amount of oral supplement(s) 237 / 237
consumed
IV fluids (Total) 100 / 100 100 / 100
IV piggybacks 550 / 550 605 / 605
TPN/PPN 1798 / 1798 871 / 871
Amount instilled into Drain ( 20 / 20 20 / 20 20 / 20
Total)
Left Lower Abdomen Placed in IR 10 / 10 10 / 10 10 / 10
Right Back
Output:
Liquid stool amount 125 / 125 100 / 100 125 / 125
Colostomy 125 / 125 100 / 100 125 / 125
Drain Output (Total) 40 / 40
Left Lower Abdomen Placed in IR 55 / 55
Right Back
Right Lower Abdomen Darius-
[place]
Urine, Voided 3000 / 3000
Other:
Number of approximated MODERATE 2 3
amounts of urine
How many times incontinent 1 2
SATURATED amount urine
Lab Results
06/21/24 06:35
06/21/24 06:35
Physical Exam
-
General: No Acute Distress and Other (Alert and oriented, sleepy)
HEENT: Grossly Normal
Abdomen: Soft, Non Distended, Tender (Appropriately tender near midline), No Guarding, No Rebound and Other (Wound VAC in place on midline incision, functioning; ostomy pink, edematous, productive of stool; left drain-18 mL serous, RLQ drain 7
mL-murky serous, right back drain-5 mL serous)
Skin: Warm and Dry
Wound: No Signs of Infection and No Skin Erythema
--- NOTE | 2024-06-21 11:40 | W.PN.CD ---
Addendum entered and electronically signed by Jesse Mejia MD 06/21/24 14:33:
Seen and examined in collaboration with PLATING INSPECTOR; agree with below.
-Patient appears to be stable from a cardiac standpoint.
-Continue current dose of metoprolol tartrate.
-No systemic anticoagulation secondary to abdominal surgery, anemia, and wound VAC.
-Cardiology will remain available on an as needed basis; outpatient follow-up with Cardiology.
Original Note:
Today's Communication / Plan
-
Continue metoprolol
Postoperative management per colorectal surgery
Impression / Plan
-
A/P: 79F with hypertension, hypercholesterolemia, interstitial lung disease, bronchiectasis, history of spontaneous pneumothorax who underwent right hip replacement 1 week prior to this admit and then presented to [facility] with bowel
perforation requiring emergent laparotomy with colectomy and colostomy. She had paroxysms of AF currently in SR.
Outpatient general lot attendant: will be Dr. Barone
Atrial fibrillation with rapid ventricular response, resolved
-New diagnosis this admission, occurred in postoperative setting after emergent ex lap with sigmoidectomy and end colostomy creation for perforated stercoral colitis with extensive washout for feculent peritonitis
-CHADSVASC score of at least 4 (age greater than 75, female, hypertension)
-Oral anticoagulation: None due to recent abdominal surgery, anemia, and wound vac
-Continue metoprolol to tartrate 12.5 mg twice daily
Hyperkalemia, K 7.5 yesterday, 3.6 today
Postop emergent laparotomy/colectomy for bowel perforation in the setting of stercoral colitis on 06/07/2024
-Mild fascial dehiscence with subhepatic abscess 06/15/2024 status post IR drain
-Complete fascial dehiscence 06/18/2024
-Remains on Zosyn, micafungin, & TPN
-Management directed by colorectal surgery
Hypertension, amlodipine 5 mg started yesterday
LONG, resolved
ILD/bronchiectasis with prior pneumothorax, pulmonary signed off
Right hip OA status post R [place] by Dr. Lyon 05/30/2024
SUBJECTIVE:
Denies dizziness, palps, and SOB.
CARDIOVASCULAR DATA:
Transthoracic echocardiogram, 06/09/2019:
Normal biventricular size and systolic function without regional wall motion
abnormality.
Mild to moderate mitral regurgitation.
Pleural effusion present.
No prior study available for comparison.
Physical Exam
Vital Signs/Labs
Vital Signs
Temp Pulse Resp BP Pulse Ox
97.8 F 74 14 141/68 95
06/21/24 07:00 06/21/24 08:15 06/21/24 07:00 06/21/24 08:15 06/21/24 07:00
06/20/24 06/21/24 06/22/24
06:59 06:59 06:59
Actual Weight 68.521 kg 69.082 kg
06/21/24 06:35
06/21/24 06:35
PT 14.6 Sec (11.4-14.6) 06/07/24 14:37
INR 1.11 06/07/24 14:37
APTT 27.5 Sec (23.4-35.0) 06/07/24 14:37
Magnesium 2.3 mg/dl (1.6-2.3) 06/20/24 09:47
Triglycerides 220 mg/dl (10-149) H 06/21/24 06:35
LDL Cholesterol, Calc -20 mg/dl 06/17/24 14:10
VLDL Cholesterol, Calc 148 mg/dl (0-30) H 06/17/24 14:10
HDL Cholesterol 37 mg/dl 06/17/24 14:10
Physical Exam
Constitutional: No acute distress and Comfortable
EENT: Anicteric and Moist mucous membranes
Cardiovascular: Rhythm & rate is regular, Pedal edema is absent, S1S2 is normal and Murmur/rub/gallop absent
Respiratory: Respiratory effort normal and Lungs clear to auscul.
GI: Abdomen is tender
Neuro/Psych: AO x 3
Other: Skin (warm and dry)
Data Reviewed
-
Date of Service: June 21, 2024
Labs: Labs Reviewed by me
Old Records: Reviewed
[2024-06-21 12:13] LABS: Glucose - Point of Care 188 mg/dl (70-99)
--- NOTE | 2024-06-21 12:41 | PTOTSP ---
ST Follow-Up
Pt currently presents with clinical signs of mild oropharyngeal dysphagia characterized by prolonged mastication and bolus formation, reduced bolus formation, and occasional coughing during PO intake. Pt is at an increased risk for aspiration given
her increased impulsivity during PO intake and her current reduced insight into her deficits and her inability to self-regulate with her intake.
Recommendations:
- DOWNGRADE diet to SOFT BITE SIZED SOLIDS with thin liquids and medications as tolerated.
- Aspiration precautions: FULL/CLOSE supervision during PO intake to regulate intake rate - 1-2 bites at a time; alternate solids/liquids; slow intake rate; check for oral clearance.
- WARP HAND to f/u re: diet tolerance, implementation of compensatory strategy use, and to determine if pt would benefit from an instrumental swallow study.
[2024-06-21] MEDS: MYCAMINE 105 MG IV (12:51)
[2024-06-21 14:15] LABS: Blood Urea Nitrogen 36 mg/dl (7-17); Calcium 8.3 mg/dl (8.4-10.2); Carbon Dioxide 23 mmol/L (22-30); Chloride 104 mmol/L (98-107); Estimated Creatinine Clearance 52 ml/min; Glucose 255 mg/dl (70-99); Potassium 4.6 mmol/L (3.5-5.1); Sodium 134 mmol/L (135-145); eGFR > 60.00
--- NOTE | 2024-06-21 15:00 | WOUNDNOTE ---
FRANCISCO RN NOTE: Received patient sitting in chair, daughter Susanna at bedside. LUQ Colostomy, stoma pink, moderate liquid stool output. Emptied appliance for 325ml, abdominal binder in use and resecured. No leakage from appliance, medial edge of wafer
stuck to wound vac, appears was changed during vac application on Thursday. VAC with good suction at 75mmhg, for vac dressing change tomorrow. Called SPD for wound vac dressings, black foam and white foam. Ostomy supplies at bedside, recommend
appliance change when vac dressing changed. Will follow as needed.
[2024-06-21 15:10] VITALS: BP 146/74
[2024-06-21 18:09] LABS: Glucose - Point of Care 329 mg/dl (70-99)
[2024-06-21] MEDS: NOVOLOG FLEXPEN-MODERATE RESISTANCE 7 UNITS SC (18:09)
[2024-06-21] MEDS: Parenteral Nutrition, Central 1190 IV (21:07)
[2024-06-21] MEDS: NEURONTIN 300 MG PO (21:33)
[2024-06-21] MEDS: NORVASC 5 MG PO (21:33)
[2024-06-21] MEDS: PEPCID 20 MG PO (21:34)
[2024-06-21 23:25] VITALS: BP 146/72
[2024-06-21 23:56] LABS: Glucose - Point of Care 153 mg/dl (70-99)
[2024-06-22] MEDS: NOVOLOG FLEXPEN-MODERATE RESISTANCE 1 UNITS SC ×3 (00:42→17:47)
[2024-06-22] MEDS: NOVOLOG FLEXPEN 3 UNITS SC (00:42)
[2024-06-22 05:23] VITALS: BMI 23.3
[2024-06-22 05:54] LABS: Glucose - Point of Care 87 mg/dl (70-99)
[2024-06-22] MEDS: NOVOLOG FLEXPEN-MODERATE RESISTANCE SC ×2 (06:00→23:21)
[2024-06-22] MEDS: ZOSYN 100 IV ×4 (06:07→23:20)
[2024-06-22 06:14] LABS: Hematocrit 23.4 % (37.0-47.0); Hemoglobin 8.1 g/dL (12.0-16.0); Mean Corp Hgb Conc. 34.6 g/dL (33.0-37.0); Mean Corpuscular Hgb 31.9 pg (27.0-31.0); Mean Corpuscular Volume 92.1 fL (81.0-99.0); Mean Platelet Volume 11.8 fL (7.4-10.4); Platelet Count 271 10^3/uL (130-400); Red Blood Cell Count 2.54 10^6/uL (4.20-5.40); Red Cell Dist. Width 14.8 % (11.5-14.5); White Blood Cell Count 12.1 10^3/uL (4.8-10.8)
[2024-06-22 06:40] LABS: Blood Urea Nitrogen 35 mg/dl (7-17); Calcium 7.9 mg/dl (8.4-10.2); Carbon Dioxide 25 mmol/L (22-30); Chloride 104 mmol/L (98-107); Estimated Creatinine Clearance 52 ml/min; Glucose 79 mg/dl (70-99); Potassium 3.6 mmol/L (3.5-5.1); Sodium 135 mmol/L (135-145); Triglycerides 194 mg/dl (10-149); eGFR > 60.00
--- NOTE | 2024-06-22 06:59 | W.PN.UPDATE ---
Update Note
Progress Note Update
Patient seen and examined this AM on rounds. She is resting in bed. She denies any pain in her right hip at present. She opens eyes to answer questions, but again states she is 'speechless'. [place] Jun 14 ([place]). Patient unfortunately sustained
bowel perforation and underwent exploratory lap under direction of Dr. Moreno June 07, 2024. On Jun 14. she went to IR for drainage intra-abdominal fluid (LLQ) revealing 35 mL of turbid fluid; preliminary cultures (+) E. coli. Abdominal fluid
cultures (right hepatic) from Jun 14 (+) Pseudomonas aeruginosa and E. coli. ID has patient on Zosyn/Microfungin.
PE: Right hip incision with steri-strips intact. No erythema, warmth, or active drainage. Mild diffuse swelling and minimal ecchymosis. Logroll without pain. Gentle ROM hip without pain. Calf is soft and nontender. NVI distally. Able to wiggle
toes and dorsi/plantar flex ankle without difficulty.
Appreciate all teams involved with care of this patient. Continue with formal physical therapy when medically able, THP's. DVT ppx per primary team. Orthopedic surgery will continue to follow along.
[2024-06-22 07:00] VITALS: BP 135/70
--- NOTE | 2024-06-22 07:11 | PTCARENOTE ---
RN for next shift made aware scheduled insulin not given for 0600 r/t low blood glucose and breakfast tray to be ordered.
--- NOTE | 2024-06-22 07:30 | W.PN.HOSP.TC ---
Addendum entered and electronically signed by Martir Jade MD 06/22/24 16:10:
Seen and examined by me independently in collaboration with the medical or surgical instrument maker.
Lab data and imaging data reviewed.
Addendum as below :
Patient now tolerating a diet. TPN to be discontinued this afternoon. Blood sugars are under control and on the lower side. Not a known diabetic. Hyperglycemia secondary to TPN. Discontinue standing insulin and follow the sliding scale going
forward.
Continue with antibiotics per ID.
Original Note:
Today's Communication/Plan
-
The patient has been cleared to get out of bed with abdominal binder due to ongoing abdominal dehiscence. Recommend that the patient out of bed and ambulate twice daily with abdominal binder. Continue analgesics. Continue current antibiotics.
Will discontinue TPN once there is sufficient oral intake.
Assessment / Plan
Assessment / Plan
Assessment/Plan:
-Acute sigmoid bowel perforation with acute surgical abdomen:
Patient's lactic acid was 4.3 in the emergency department
The patient was hyponatremic with a sodium of 123, hypochloremic at 93, low bicarb at 18, elevated BUN at 55, and an elevated creatinine at 1.5 in the emergency department
An abdominal CT showed findings suggesting perforated bowel probable at sigmoid colon with associated retroperitoneal and intraperitoneal free air, air-fluid level suggesting abscess formation and extraluminal stool.
Surgery and colorectal surgery consulted
IV fluid support given
Patient is postop from exploratory laparotomy, sigmoidectomy, and creation of end colostomy
Hydromorphone/Zofran as needed
Continue IV Zosyn -white blood cells at 28.5 on 06/10/2024, on 06/11/2024 her white blood cell count was 26.3, on 06/13/2024 her white blood cell count was 18.9, on 06/15/2024 her white blood cell count was at 29.1, white blood cell count 32.2 on
06/16/2024, white blood cells 33.4 on 06/17/2024, white blood cells 21.7 on 06/19/2024, white blood cells 15.5 on 06/20/2024, white blood cell count on 06/21/2024 was 15.7
Appreciate infectious diseases recommendations�continue Zosyn and micafungin -patient has a PICC line and we may consider home IV antibiotics if indicated
The patient has been extubated and is on room air
The patient has been downgraded to telemetry as she no longer is on pressors and is not intubated.
TPN initiated by surgery -TPN continued -would be ruth to consider increasing potassium in TPN formulation as the patient has been repleted multiple times.
Patient is allowed to drink full liquids now
Follow-up CT of the abdomen on 06/15/2024 showed tubular shaped fluid collection along the posterior right lobe of the liver as above with thin enhancing rim, up to 7 cm diameter. Increased as compared with prior and exerts some mass effect against
the right lobe of the liver, suspicious for abscess.
Culture from abdominal abscess preliminary resulted as positive for anaerobic bacteria -
Pseudomonas aeruginosa and E. coli found IR drainage of intra-abdominal fluid.
ID recommends changing of LLQ -was changed
Patient has been advanced to a regular diet.
Patient is currently has abdominal dehiscence and cannot sit up or get out of bed without an abdominal binder as per colorectal surgery recommendations.
Will continue TPN until there is sufficient oral intake.
-Joint pain:
Gabapentin added
-Left hand swelling:
Patient had left hand swelling on 06/14/2024
Bilateral upper extremity ultrasound ordered -negative for bilateral upper extremity deep venous thrombosis
-Hyponatremia: Resolved
Patient was found to be hyponatremic with a sodium of 123 in the emergency department.
Sodium is 129 on 06/08/2024 -is 128 on 06/09/2024, is 132 on 06/10/2024, 139 on 06/14/2019
GFR at baseline
Appreciate nephrology recommendations
Nephrology has recommended reducing IV fluids.
-Hypokalemia:
The patient had hypokalemia at 3.0 on 06/13/2024 and 3.1 on 06/13/2024, 3.1 on 06/14/24, potassium was 3.0 on 06/15/2024, K remained 3.0 on 06/16/24, remained 3.0 on 06/17/2024
More potassium repleted on 06/17/2024ontinue to follow with labs
Recommend increasing potassium in TPN formulation as the patient is consistently needed ongoing potassium repletion.
Potassium on 06/19/2024 3.5�within the lower range of normal limits.
-Hypomagnesemia:
Patient had a magnesium level of 1.5 on 06/15/2024 -repleted - was 1.8 on 06/16/24 WNL
Continue to follow labs
-Acute kidney injury secondary to bowel perforation/infection/acute process:
Patient's baseline creatinine is 0.8 taken on 05/12/2024
Lactic acid was 4.3 in the emergency department
On presentation to the emergency department on 06/07/2024 the patient had a creatinine of 1.5 indicating acute kidney injury.
On 06/08/2024 creatinine is 2.0 continue to trend creatinine -was 2.4 at 12: 02 on 06/08/2024 and has begun trending down on 06/09/2024 at 2.2, remained 2.2 on 06/10/2024, creatinine was 1.2 on 06/13/2024, creatinine is 0.9 on 06/17/2024 within normal
limits.
Atrial fibrillation with rapid ventricular response:
New diagnosis found postoperatively.
[id number] of 4 due to the age being greater than 75, female, hypertension
Patient is now back in sinus rhythm after receiving Amio
Will start low-dose beta-norma when blood pressure will allow.
Echocardiogram conducted on 06/09/2024 showed aortic sclerosis without stenosis and no aortic regurgitation. Moderate tricuspid regurgitation. Mild pulmonic regurgitation. Pleural effusion present
Continue IV Lopressor
-Essential hypertension:
Appreciate cardiology recommendations
Holding home hypertension meds -will consider resuming medications once patient is more hemodynamically stable postoperatively
Metoprolol tartrate 2.5 mg IV every 6 - continue - will switch to Metoprolol 12.5mg BID when able to take oral meds
Cardiology recommend as needed hydralazine for additional BP control
-Mild cognitive impairment:
Monitoring
-S/p ostomy:
Ostomy on the left side
NGT removed
N.p.o. with sips/chips
Wound healing well, ostomy producing stool, maintain wound care
Colorectal surgery continues to follow
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
appreciate ortho recommendations
enrique removed
will need PT/OT--likely SNF
-Interstitial lung disease with bronchiectasis
-Past medical history of spontaneous pneumothorax
FULL CODE STATUS
DVT prophylaxis: Heparin sq
Stress ulcer prophylaxis: Famotidine
Imaging:
-Abdominal CT conducted on 06/07/2024:
New findings suggesting perforated bowel probable sigmoid colon with associated retroperitoneal and intraperitoneal free air, air-fluid levels suggesting abscess formation and extraluminal stool.
Mild small bowel dilatation probably ileus due to reactive change. New
Tiny bilateral pleural effusions. New
Too small to characterize hypodense left renal lesion likely a benign cyst.
Mild lingular bronchiectasis. Stable
Critical value: Free air.
-Chest x-ray conducted on 06/07/2024:
Endotracheal tube is present with its tip 6 cm above the rafiq.
-Echocardiogram conducted on 06/09/2024:
Normal biventricular size and systolic function without regional wall motion abnormality.
Mild to moderate mitral regurgitation.
Pleural effusion present.
No prior study available for comparison.
-Abdominal CT conducted on 06/15/2024:
IMPRESSION:
1. Somewhat tubular shaped fluid collection along the posterior right lobe of the liver as above with thin enhancing rim, up to 7 cm diameter. Increased as compared with prior and exerts some mass effect against the right lobe of the liver,
suspicious for abscess.
2. Small volume of free fluid adjacent the liver and spleen. Small volume of unorganized free fluid in the anterior and left abdomen as above.
3. Anasarca. Small bilateral pleural effusions with adjacent atelectasis, increased as compared to prior.
4. Trace residual pneumoperitoneum. Partially open abdominal wall incision with some associated abdominal wall emphysema.
5. Mild right hydronephrosis. No ureteral filling defects identified.
6. Small volume of gas within the urinary bladder likely related to previous Ramon catheter.
7. Approximately 1.8 cm left ovarian cyst.
-Upper Limb Bilateral Peripheral Vascular US conducted on 06/15/24:
FINDINGS: PICC is noted in the left brachial, axillary, and subclavian veins. The deep venous systems show normal grayscale appearance, normal conventional Doppler waveform with appropriate response to respiration and augmentation, and normal color
flow Doppler signal. Where feasible, there is expected compressibility of the vessels.
IMPRESSION: Negative for bilateral upper extremity deep venous thrombosis.
Procedures:
-Ultrasound guided drainage of an intra-abdominal fluid collection on 06/15/24:
TECHNIQUE: The risks and benefits of the procedure were discussed with the patient and informed, written consent was obtained. The patient was positioned prone with a right side up. Ultrasound was performed of the right hepatorenal region, which
confirmed a fluid collection superior to the right kidney and adjacent to the liver, as seen on recent CT.
The right posterior flank was prepped and draped in the usual sterile fashion. Maximum sterile barrier techniques were used including wearing cap and mask and sterile gown and sterile gloves and a large sterile sheet and hand hygiene and 2%
chlorhexidine for cutaneous antisepsis. Split doses of Versed and fentanyl were administered by a board certified nurse under continuous hemodynamic monitoring.
Preliminary ultrasound was performed. 2% lidocaine was administered subcutaneously for local anesthesia. Next an 18-gauge needle was advanced into the abdominal fluid collection under real-time ultrasound guidance. Purulent fluid was aspirated
through the needle. An 035 guidewire was then advanced through the needle and positioned within the fluid collection. Following serial dilation of the tract, an 8.5 Serbian locking loop catheter was advanced over the guidewire, and the pigtail was
coiled within the collection.
A total of 20 milliliters of purulent fluid was aspirated, and sent for culture and sensitivity.
Anticipated Discharge: > 48 hours
Subjective/Interval History
-
Date of Service: June 22, 2024
Met with the patient at the bedside. She continues to show frustration and sadness at her current condition. She states that she is 'so�so.' When asked to rate her pain on a scale of 1-10 she rates it a 9 out of 10. She continues to try to have
meals as much as she can. She also plans to sit in her chair with an abdominal binder if possible today. Daughter was present at the bedside.
Objective Data
-
Labs:
Laboratory Results
06/22/24
05:34
WBC 12.1 H
Hgb 8.1 L
Hct 23.4 L
Plt Count 271
Sodium 135
Potassium 3.6
Chloride 104
Carbon Dioxide 25
BUN 35 H
Creatinine 0.9
Glucose 79
Calcium 7.9 L
Vital Signs:
Vital Signs
Temp Pulse Resp BP Pulse Ox
98.1 F 68 16 135/70 96
06/22/24 07:00 06/22/24 07:00 06/22/24 07:00 06/22/24 07:00 06/22/24 07:00
I&O
06/21/24 06/22/24 06/23/24
06:59 06:59 06:59
Intake Total 3323 / 3323 3378 / 3378
Output Total 140 / 140 645 / 645
Balance 3183 / 3183 2733 / 2733
Review of Systems
-
History Source: Patient
Constitutional: Reports Fatigue and Weakness
EENT: Reports No Symptoms Reported
Respiratory: Reports No Symptoms
Cardiac: Reports No Symptoms
Abdomen/GI: Reports Pain
Breast: Reports No Symptoms
Genitourinary: Reports No Symptoms
Musculoskeletal: Reports Muscle Weakness
Skin: Reports No Symptoms
Neuro: Reports No Symptoms
Endocrine: Reports No Symptoms
Psych: Reports Depressed and Sad
Physical Exam
-
General: Well Developed, Well Nourished and Pain
HEENT: Normocephalic, Atraumatic and Moist Mucous Membranes
Respiratory: Clear to Auscultation; Negative Wheezes, Rales, Rhonchi or Crackles
Cardiac: S1/S2; Negative Murmur or Rub
Breast: Deferred by me
GI: Ostomy and Other (Abdominal wound bandage in place)
Rectal: Deferred by Provider
Genito-urinary: Deferred by me
Musculoskeletal: No Clubbing, No Cyanosis and No Edema
Skin: Warm and Dry; Negative Rash or Ulcers
Neuro: Awake, Alert, Oriented and AO x 3
Psych: Calm and Depressed
[2024-06-22] MEDS: DILAUDID 0.5 MG IV (08:03)
[2024-06-22] MEDS: FLUSH (NSS) 1 FLUSH IV (08:07)
[2024-06-22] MEDS: NEURONTIN 100 MG PO ×2 (08:08→16:32)
[2024-06-22] MEDS: LOPRESSOR 12.5 MG PO ×2 (08:08→21:38)
[2024-06-22] MEDS: HEPARIN 5000 UNITS SC ×3 (08:09→23:20)
--- NOTE | 2024-06-22 08:32 | W.PN.CRS1 ---
Today's Communication / Plan
-
wound vac change
will touch base with nutrition regarding tpn
Assessment/Plan
-
79-year-old female with PMH of HTN, HLD, interstitial lung disease with bronchiectasis, history of pneumonia multiple times, history of spontaneous pneumothorax x 2 who presents 8 days after right hip replacement; 4 days prior to admission, she
started to develop abdominal pain and nausea with decreased bowel function; the abdominal pain and nausea/vomiting continue to worsen; she denies any fevers, chest pain, or urinary symptoms; she does have dyspnea due to the abdominal pain; her last
colonoscopy was 2 years ago which she reports as normal (report not available to me); in the ED, her WBC was 9.3, CR 1.5 and a CTAP was done which shows moderate free air, extraluminal stool adjacent to the mid sigmoid colon with concern of sigmoid
perforation possibly due to diverticulitis
06/07 (POD 14) ex lap, sigmoidectomy with end colostomy creation for perforated stercoral colitis; extensive washout ~9L for feculent peritonitis
- extubated and pressors weaned off by POD 1; initially oliguric, but UOP recovered; A-fib with RVR, stabilized on Amio
- 06/12 CT - c/f subhepatic abscess, d/w [place] and felt that it more likely represents free fluid; remainder post-op changes
- 06/13 opened enrique at inferior midline for murky drainage
- 06/15 mild fascial dehiscence noted; CT -subhepatic abscess increased, fluid along the left gutter; s/p IR drain of subhepatic abscess�20 mL pus
- 06/16 s/p IR drain of left gutter�35 mL of turbid fluid
- 3/ complete fascial dehiscence
- 3/ vac placed with white sponge at 75mmHg
AFVSS
WBC 12.1 (15.7), Hb 8.1 (8.1) from 8.4, Cr 0.9 (1.0)
-Fascial dehiscence
�Continue wound VAC with white sponge at 75 mmHg; change MWF (done today)
�Recommend OOB and ambulate twice daily with abdominal binder; will reconsult PT
� Pain control with tylenol, oxycodone, dilaudid
� A-fib with RVR, now in SR, appreciate cardiology
� Continue DVT PPx with subQ heparin
� Continue regular diet
-cont TPN until taking in sufficient nutrition oral - will touch base with nutrition
� Appreciate hospitalist
- Dispo: eventual rehab, will consult psychiatry prior to d/c
Subjective Data
Procedure
Exploratory laparotomy, lysis of his adhesions, sigmoidectomy, creation of end colostomy on 06/07/24
Subjective Data
Date of Service: June 22, 2024
Patient states she is in some pain. She was out of bed yesterday and walked the halls. She denies nausea or vomiting. She is tolerating a diet.
Objective Data
-
Vital Signs
Temp Pulse Resp BP Pulse Ox
98.1 F 68 16 135/70 96
06/22/24 07:00 06/22/24 07:00 06/22/24 07:00 06/22/24 07:00 06/22/24 07:00
Intake & Output
06/21/24 06/22/24 06/23/24
06:59 06:59 06:59
Intake Total 3323 / 3323 3378 / 3378
Output Total 140 / 140 645 / 645
Balance 3183 / 3183 2733 / 2733
Intake:
Oral fluids 1490 / 1490 1930 / 1930
Amount of oral supplement(s) 237 / 237 237 / 237
consumed
IV fluids (Total) 100 / 100
IV piggybacks 605 / 605 505 / 505
TPN/PPN 871 / 871 686 / 686
Amount instilled into Drain ( 20 / 20 20 / 20
Total)
Left Lower Abdomen Placed in IR
Right Back
Output:
Liquid stool amount 100 / 100 610 / 610
Colostomy 100 / 100 610 / 610
Drain Output (Total) 40 / 40 35 / 35
Left Lower Abdomen Placed in IR
Right Back
Right Lower Abdomen Darius-
[place]
Other:
Number of approximated MODERATE 3
amounts of urine
How many times incontinent 2 2
SATURATED amount urine
Lab Results
06/22/24 05:34
06/22/24 05:34
Physical Exam
-
General: No Acute Distress
Abdomen: Soft and Tender
[2024-06-22 09:33] LABS: Glucose - Point of Care 92 mg/dl (70-99)
[2024-06-22] MEDS: NOVOLOG FLEXPEN SC (09:34)
[2024-06-22] MEDS: LANTUS 0.18 UNITS SC (09:35)
--- NOTE | 2024-06-22 10:59 | W.PN.UPDATE ---
Update Note
Progress Note Update
Spoke with car dryer. Patient is eating enough calories. Will stop TPN after bag runs out at 9pm.
[2024-06-22] MEDS: ROXICODONE 5 MG PO ×3 (11:56→21:42)
[2024-06-22] MEDS: MYCAMINE 105 MG IV (12:52)
[2024-06-22 13:20] VITALS: BP 151/73; PULSE 72; O2SAT 95
[2024-06-22 13:45] VITALS: BP 151/73; PULSE 72; O2SAT 95
[2024-06-22 15:00] VITALS: BP 149/86
--- NOTE | 2024-06-22 15:12 | W.PN.ID1 ---
Date of Service
Date of Service: June 22, 2024
Today's Communication
- c/w with zosyn
- c/w micafungin
Assessment / Plan
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
E. coli bacteremia due to bowel perforation, abscess
S/p Exploratory laparotomy, lysis of adhesions, sigmoidectomy, creation of end-colostomy
Ileus
Marked leukocytosis
LONG
Hx Recent right hip replacement
- 06/07 blood cultures both with anaerobe - bacteroides - source bowel perforation; collection
- blood culture from 06/09 now also with a sensitive E coli
- repeat blood cultures x2 06/15 no growth to date
- 06/15 abscess cultures: Pseudomonas aeruginosa and E. coli
Recommendations:
- c/w with zosyn
- c/w micafungin
Follow white count and temperature curve.
Continue with supportive measures.
follow clinically
����������������������������������������������������������
Chief Complaint
-: Other (bowel perforation, secondary peritonitis)
Subjective / Review of Systems
afebrile
bp stable
alert but refusing to respond to questions this afternoon
one of three drains with some purulent drainage
Vital Signs / Physical Exam
Vital Signs
Vital Signs
Temp Pulse Resp BP Pulse Ox
98.1 F 68 16 135/70 96
06/22/24 07:00 06/22/24 07:00 06/22/24 07:00 06/22/24 07:00 06/22/24 07:40
Physical Exam
Constitutional: No Acute Distress
Cardiovascular: Regular Rate and S1/S2; Negative Murmur or Rub
Pulmonary: Clear and Symmetric; Negative Wheezes or Rales
Gastrointestinal: Soft, Non Tender, Non Distended and Normal Bowel Sounds
Skin: Warm and Dry; Negative Rash or Jaundice
Wound: Other (wound vac)
Lines: Other (one of three drains with purulent drainage)
Objective Data
Lab Data
Lab Results
06/22/24 05:34
06/22/24 05:34
PT 14.6 Sec (11.4-14.6) 06/07/24 14:37
INR 1.11 06/07/24 14:37
APTT 27.5 Sec (23.4-35.0) 06/07/24 14:37
Estimated Creat Clear 52 ml/min 06/22/24 05:34
Lactic Acid 1.9 mmol/L (0.7-2.0) 06/10/24 03:33
Total Bilirubin 0.7 mg/dl (0.2-1.3) 06/21/24 06:35
AST 34 U/L (14-36) 06/21/24 06:35
ALT 32 U/L (0-35) 06/21/24 06:35
Alkaline Phosphatase 147 U/L (38-126) H 06/21/24 06:35
Most recent labs reviewed.
Micro Results:
06/16/24 15:50 Wound Culture - Final
Abdomen Escherichia coli
Gram Stain - Final
06/16/24 15:50 Anaerobic Culture - Final
Abdomen NO ANAEROBES ISOLATED
06/15/24 16:25 Body Fluid Culture - Final
Fluid Pseudomonas aeruginosa
Escherichia coli
Gram Stain - Final
06/15/24 16:25 Anaerobic Culture - Final
Abdomen Eggerthella lenta
06/14/24 12:56 Blood Culture - Final
Blood/Venous No Growth - Final Report
06/14/24 12:22 Blood Culture - Final
Blood/Venous No Growth - Final Report
06/14/24 09:05 Blood Culture - Final
Blood/Venous No Growth - Final Report
06/09/24 15:02 Blood Culture - Final
Blood/Venous Escherichia coli
Gram Stain - Final
06/07/24 10:27 Blood Culture - Final
Blood/Venous Bacteroides uniformis
Gram Stain - Final
06/07/24 10:26 Blood Culture - Final
Blood/Venous Bacteroides uniformis
Gram Stain - Final
06/09/24 12:09 Blood Culture - Final
Blood/Venous No Growth - Final Report
06/07/24 23:30 MRSA Screen - Final
Nose No Methicillin Resistant Staphylococcus aureus isolated.
06/07/24 10:27 Urine Culture - Final
Urine No Significant Growth
06/07/24 09:19 Influenza Types A & B (EVI) - Final
Nasal Swab Negative for Influenza A & B, NAAT
Negative results must be combined with clinical observations
and patient history.
Nucleic Acid Amplification test (NAAT)performed on the
[employer] platform.
[2024-06-22 15:15] LABS: Glucose - Point of Care 186 mg/dl (70-99)
--- NOTE | 2024-06-22 16:25 | CM ---
Chart reviewed
PT/OT recs - acute. Family requested [facility] previously
Referral sent in [facility]
Plan - acute rehab when medically ready
[2024-06-22 17:47] LABS: Glucose - Point of Care 163 mg/dl (70-99)
[2024-06-22] MEDS: PEPCID 20 MG PO (21:37)
[2024-06-22] MEDS: NEURONTIN 300 MG PO (21:37)
[2024-06-22] MEDS: NORVASC 5 MG PO (21:38)
[2024-06-22 23:05] VITALS: BP 157/70
[2024-06-22 23:21] LABS: Glucose - Point of Care 102 mg/dl (70-99)
[2024-06-23 05:17] LABS: % Basophils 0.1 % (0-2); % Eosinophils 0.2 % (0-6); % Immature Granulocytes 2.1 % (0-0.5); % Lymphocytes 7.7 % (20.5-51.1); % Monocytes 3.1 % (1.7-9.3); % Neutrophils 86.8 % (42.2-75.2); Absolute Immature Granulocytes 0.2 10^3/uL (0-0.05); Absolute Lymphocytes 0.8 10^3/uL (1.2-3.4); Absolute Monocytes 0.3 10^3/uL (0.1-0.6); Absolute Neutrophils 8.8 10^3/uL (1.4-6.5); Mean Corp Hgb Conc. 34.8 g/dL (33.0-37.0); Mean Corpuscular Hgb 31.6 pg (27.0-31.0); Mean Corpuscular Volume 90.9 fL (81.0-99.0); Nucleated Red Blood Cells % 0 %; Platelet Count 274 10^3/uL (130-400); Red Blood Cell Count 2.53 10^6/uL (4.20-5.40); Red Cell Dist. Width 14.7 % (11.5-14.5); White Blood Cell Count 10.2 10^3/uL (4.8-10.8)
[2024-06-23 05:36] LABS: Glucose - Point of Care 54 mg/dl (70-99)
[2024-06-23 05:47] LABS: Blood Urea Nitrogen 35 mg/dl (7-17); Calcium 7.6 mg/dl (8.4-10.2); Carbon Dioxide 27 mmol/L (22-30); Chloride 103 mmol/L (98-107); Estimated Creatinine Clearance 47 ml/min; Glucose 37 mg/dl (70-99); Potassium 3.1 mmol/L (3.5-5.1); Sodium 133 mmol/L (135-145); eGFR 57.66
[2024-06-23 05:49] VITALS: BMI 24.1
[2024-06-23] MEDS: NOVOLOG FLEXPEN-MODERATE RESISTANCE SC ×3 (05:50→17:17)
[2024-06-23] MEDS: ZOSYN 100 IV ×4 (05:51→23:33)
[2024-06-23 06:03] LABS: Glucose - Point of Care 52 mg/dl (70-99)
[2024-06-23 06:17] LABS: Glucose - Point of Care 74 mg/dl (70-99)
[2024-06-23 06:46] VITALS: BMI 23.9
[2024-06-23 07:00] VITALS: BP 140/69
--- NOTE | 2024-06-23 07:30 | W.PN.HOSP.TC ---
Addendum entered and electronically signed by Martir Jade MD 06/23/24 13:45:
Seen and examined by me independently in collaboration with the manager medical device.
Lab data and imaging data reviewed.
Addendum as below :
Tolerating oral diet without nausea but she has constant abdominal pain. Abdomen is soft bowel sounds present. Drains and colostomy noted. Continue with diet, antibiotics and therapies.
Off of TPN-so stopped insulin. This morning was hypoglycemic which resolved. Following sliding scale insulin
Blood pressure under goal mostly.
Original Note:
Today's Communication/Plan
-
Continue Zosyn and micafungin. Patient was hypokalemic with a value of 3.1�repleted. TPN has been discontinued�will continue to monitor oral intake. Patient's hemoglobin is 8.0 but appears to be slowly going downwards over the past week. Will
continue to follow and will give PRBCs if indicated. Recommend that the patient attempt to get out of bed with abdominal binder if possible.
Assessment / Plan
Assessment / Plan
Assessment/Plan:
-Acute sigmoid bowel perforation with acute surgical abdomen:
Patient's lactic acid was 4.3 in the emergency department
The patient was hyponatremic with a sodium of 123, hypochloremic at 93, low bicarb at 18, elevated BUN at 55, and an elevated creatinine at 1.5 in the emergency department
An abdominal CT showed findings suggesting perforated bowel probable at sigmoid colon with associated retroperitoneal and intraperitoneal free air, air-fluid level suggesting abscess formation and extraluminal stool.
Surgery and colorectal surgery consulted
IV fluid support given
Patient is postop from exploratory laparotomy, sigmoidectomy, and creation of end colostomy
Hydromorphone/Zofran as needed
Continue IV Zosyn -white blood cells at 28.5 on 06/10/2024, on 06/11/2024 her white blood cell count was 26.3, on 06/13/2024 her white blood cell count was 18.9, on 06/15/2024 her white blood cell count was at 29.1, white blood cell count 32.2 on
06/16/2024, white blood cells 33.4 on 06/17/2024, white blood cells 21.7 on 06/19/2024, white blood cells 15.5 on 06/20/2024, white blood cell count on 06/21/2024 was 15.7, white blood cell count on was 10.2 within normal limits
Appreciate infectious diseases recommendations�continue Zosyn and micafungin -patient has a PICC line and we may consider home IV antibiotics if indicated
The patient has been extubated and is on room air
The patient has been downgraded to telemetry as she no longer is on pressors and is not intubated.
TPN initiated by surgery -TPN continued -would be ruth to consider increasing potassium in TPN formulation as the patient has been repleted multiple times.
Patient is on an IDDSI 6 soft and bite sized diet with thin liquids
Follow-up CT of the abdomen on 06/15/2024 showed tubular shaped fluid collection along the posterior right lobe of the liver as above with thin enhancing rim, up to 7 cm diameter. Increased as compared with prior and exerts some mass effect against
the right lobe of the liver, suspicious for abscess.
Culture from abdominal abscess preliminary resulted as positive for anaerobic bacteria -
Pseudomonas aeruginosa and E. coli found IR drainage of intra-abdominal fluid.
ID recommends changing of LLQ -was changed
Patient has been advanced to a regular diet.
Patient is currently has abdominal dehiscence and cannot sit up or get out of bed without an abdominal binder as per colorectal surgery recommendations.
TPN discontinued
-Joint pain:
Gabapentin added
-Left hand swelling:
Patient had left hand swelling on 06/14/2024
Bilateral upper extremity ultrasound ordered -negative for bilateral upper extremity deep venous thrombosis
-Hyponatremia: Resolved
Patient was found to be hyponatremic with a sodium of 123 in the emergency department.
Sodium is 129 on 06/08/2024 -is 128 on 06/09/2024, is 132 on 06/10/2024, 139 on 06/14/2019,
GFR at baseline
Appreciate nephrology recommendations
-Hypokalemia:
The patient had hypokalemia at 3.0 on 06/13/2024 and 3.1 on 06/13/2024, 3.1 on 06/14/24, potassium was 3.0 on 06/15/2024, K remained 3.0 on 06/16/24, remained 3.0 on 06/17/2024
More potassium repleted on 06/17/2024ontinue to follow with labs
Recommend increasing potassium in TPN formulation as the patient is consistently needed ongoing potassium repletion.
Potassium on 06/23/2024 was 3.1�repleted
-Hypomagnesemia:
Patient had a magnesium level of 1.5 on 06/15/2024 -repleted - was 1.8 on 06/16/24 WNL
Continue to follow labs
-Acute kidney injury secondary to bowel perforation/infection/acute process:
Patient's baseline creatinine is 0.8 taken on 05/12/2024
Lactic acid was 4.3 in the emergency department
On presentation to the emergency department on 06/07/2024 the patient had a creatinine of 1.5 indicating acute kidney injury.
On 06/08/2024 creatinine is 2.0 continue to trend creatinine -was 2.4 at 12: 02 on 06/08/2024 and has begun trending down on 06/09/2024 at 2.2, remained 2.2 on 06/10/2024, creatinine was 1.2 on 06/13/2024, creatinine is 0.9 on 06/17/2024 within normal
limits.
Atrial fibrillation with rapid ventricular response:
New diagnosis found postoperatively.
[id number] of 4 due to the age being greater than 75, female, hypertension
Patient is now back in sinus rhythm after receiving Amio
Will start low-dose beta-norma when blood pressure will allow.
Echocardiogram conducted on 06/09/2024 showed aortic sclerosis without stenosis and no aortic regurgitation. Moderate tricuspid regurgitation. Mild pulmonic regurgitation. Pleural effusion present
Continue IV Lopressor
-Essential hypertension:
Appreciate cardiology recommendations
Holding home hypertension meds -will consider resuming medications once patient is more hemodynamically stable postoperatively
Metoprolol tartrate 2.5 mg IV every 6 - continue - will switch to Metoprolol 12.5mg BID when able to take oral meds
Cardiology recommend as needed hydralazine for additional BP control
-Mild cognitive impairment:
Monitoring
-S/p ostomy:
Ostomy on the left side
NGT removed
N.p.o. with sips/chips
Wound healing well, ostomy producing stool, maintain wound care
Colorectal surgery continues to follow
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
appreciate ortho recommendations
enrique removed
will need PT/OT--likely SNF
-Interstitial lung disease with bronchiectasis
-Past medical history of spontaneous pneumothorax
FULL CODE STATUS
DVT prophylaxis: Heparin sq
Stress ulcer prophylaxis: Famotidine
Imaging:
-Abdominal CT conducted on 06/07/2024:
New findings suggesting perforated bowel probable sigmoid colon with associated retroperitoneal and intraperitoneal free air, air-fluid levels suggesting abscess formation and extraluminal stool.
Mild small bowel dilatation probably ileus due to reactive change. New
Tiny bilateral pleural effusions. New
Too small to characterize hypodense left renal lesion likely a benign cyst.
Mild lingular bronchiectasis. Stable
Critical value: Free air.
-Chest x-ray conducted on 06/07/2024:
Endotracheal tube is present with its tip 6 cm above the rafiq.
-Echocardiogram conducted on 06/09/2024:
Normal biventricular size and systolic function without regional wall motion abnormality.
Mild to moderate mitral regurgitation.
Pleural effusion present.
No prior study available for comparison.
-Abdominal CT conducted on 06/15/2024:
IMPRESSION:
1. Somewhat tubular shaped fluid collection along the posterior right lobe of the liver as above with thin enhancing rim, up to 7 cm diameter. Increased as compared with prior and exerts some mass effect against the right lobe of the liver,
suspicious for abscess.
2. Small volume of free fluid adjacent the liver and spleen. Small volume of unorganized free fluid in the anterior and left abdomen as above.
3. Anasarca. Small bilateral pleural effusions with adjacent atelectasis, increased as compared to prior.
4. Trace residual pneumoperitoneum. Partially open abdominal wall incision with some associated abdominal wall emphysema.
5. Mild right hydronephrosis. No ureteral filling defects identified.
6. Small volume of gas within the urinary bladder likely related to previous Ramon catheter.
7. Approximately 1.8 cm left ovarian cyst.
-Upper Limb Bilateral Peripheral Vascular US conducted on 06/15/24:
FINDINGS: PICC is noted in the left brachial, axillary, and subclavian veins. The deep venous systems show normal grayscale appearance, normal conventional Doppler waveform with appropriate response to respiration and augmentation, and normal color
flow Doppler signal. Where feasible, there is expected compressibility of the vessels.
IMPRESSION: Negative for bilateral upper extremity deep venous thrombosis.
Procedures:
-Ultrasound guided drainage of an intra-abdominal fluid collection on 06/15/24:
TECHNIQUE: The risks and benefits of the procedure were discussed with the patient and informed, written consent was obtained. The patient was positioned prone with a right side up. Ultrasound was performed of the right hepatorenal region, which
confirmed a fluid collection superior to the right kidney and adjacent to the liver, as seen on recent CT.
The right posterior flank was prepped and draped in the usual sterile fashion. Maximum sterile barrier techniques were used including wearing cap and mask and sterile gown and sterile gloves and a large sterile sheet and hand hygiene and 2%
chlorhexidine for cutaneous antisepsis. Split doses of Versed and fentanyl were administered by a board certified nurse under continuous hemodynamic monitoring.
Preliminary ultrasound was performed. 2% lidocaine was administered subcutaneously for local anesthesia. Next an 18-gauge needle was advanced into the abdominal fluid collection under real-time ultrasound guidance. Purulent fluid was aspirated
through the needle. An 035 guidewire was then advanced through the needle and positioned within the fluid collection. Following serial dilation of the tract, an 8.5 Romansh locking loop catheter was advanced over the guidewire, and the pigtail was
coiled within the collection.
A total of 20 milliliters of purulent fluid was aspirated, and sent for culture and sensitivity.
Anticipated Discharge: > 48 hours
Subjective/Interval History
-
Date of Service: June 23, 2024
Met with patient at the bedside. She continues to be visibly uncomfortable and frustrated with her condition. She states that her abdominal pain is an 8 out of 10 and diffuse throughout the abdomen. The patient continues to try to increase her
oral intake. She was unable to state whether or not she got out of the bed yesterday with abdominal binder.
Objective Data
-
Labs:
Laboratory Results
06/23/24
04:52
WBC 10.2
Hgb 8.0 L
Hct 23.0 L
Plt Count 274
Sodium 133 L
Potassium 3.1 L
Chloride 103
Carbon Dioxide 27
BUN 35 H
Creatinine 1.0
Glucose 37 L*
Calcium 7.6 L
Vital Signs:
Vital Signs
Temp Pulse Resp BP Pulse Ox
97.9 F 67 16 140/69 97
06/23/24 07:00 06/23/24 07:00 06/23/24 07:00 06/23/24 07:00 06/23/24 07:00
I&O
06/22/24 06/23/24 06/24/24
06:59 06:59 06:59
Intake Total 3378 / 3378 1920 / 1920
Output Total 645 / 645 220 / 220
Balance 2733 / 2733 1700 / 1700
Review of Systems
-
Unable to obtain full review of systems at this time due to: Other (Patient too tired to cooperate)
History Source: Patient
Constitutional: Reports Fatigue and Weakness
Respiratory: Reports No Symptoms
Cardiac: Reports No Symptoms
Abdomen/GI: Reports Abdominal Pain and Pain
Breast: Reports No Symptoms
Genitourinary: Reports No Symptoms
Musculoskeletal: Reports Muscle Weakness
Skin: Reports No Symptoms
Neuro: Reports Weakness
Endocrine: Reports No Symptoms
Psych: Reports Depressed and Sad
Physical Exam
-
General: Well Developed and Pain
HEENT: Normocephalic, Atraumatic and Moist Mucous Membranes
Respiratory: Decreased Breath Sounds (bilaterally in the lung bases)
Cardiac: S1/S2; Negative Murmur, Rub or JVD
Breast: Deferred by me
GI: Soft, Nontender, Nondistended, Normal Bowel Sounds and Ostomy
Rectal: Deferred by Provider
Genito-urinary: Deferred by me
Musculoskeletal: No Clubbing, No Cyanosis, Edema, Right Lower Extrem (+1 pedal edema) and Edema, Left Lower Extrem (+1 pedal edema)
Skin: Warm and Dry; Negative Rash, Ulcers or Lesions
Neuro: Awake, Alert, Oriented and AO x 3
Psych: Calm and Depressed
[2024-06-23 08:32] LABS: Glucose - Point of Care 95 mg/dl (70-99)
[2024-06-23] MEDS: KCL 40 MEQ PO (08:49)
[2024-06-23] MEDS: LOPRESSOR 12.5 MG PO ×2 (08:49→21:15)
[2024-06-23] MEDS: HEPARIN 5000 UNITS SC ×3 (08:49→23:33)
[2024-06-23] MEDS: NEURONTIN 100 MG PO ×2 (08:50→15:09)
[2024-06-23] MEDS: ROXICODONE 5 MG PO ×3 (08:53→21:17)
--- NOTE | 2024-06-23 09:19 | W.PN.CRS1 ---
Today's Communication / Plan
-
continue diet
no further TPN
rehab c/s
continue zosyn
Assessment/Plan
-
79-year-old female with PMH of HTN, HLD, interstitial lung disease with bronchiectasis, history of pneumonia multiple times, history of spontaneous pneumothorax x 2 who presents 8 days after right hip replacement; 4 days prior to admission, she
started to develop abdominal pain and nausea with decreased bowel function; the abdominal pain and nausea/vomiting continue to worsen; she denies any fevers, chest pain, or urinary symptoms; she does have dyspnea due to the abdominal pain; her last
colonoscopy was 2 years ago which she reports as normal (report not available to me); in the ED, her WBC was 9.3, CR 1.5 and a CTAP was done which shows moderate free air, extraluminal stool adjacent to the mid sigmoid colon with concern of sigmoid
perforation possibly due to diverticulitis
06/07 (POD 16) ex lap, sigmoidectomy with end colostomy creation for perforated stercoral colitis; extensive washout ~9L for feculent peritonitis
- extubated and pressors weaned off by POD 1; initially oliguric, but UOP recovered; A-fib with RVR, stabilized on Amio
- 06/12 CT - c/f subhepatic abscess, d/w [place] and felt that it more likely represents free fluid; remainder post-op changes
- 06/13 opened enrique at inferior midline for murky drainage
- 06/15 mild fascial dehiscence noted; CT -subhepatic abscess increased, fluid along the left gutter; s/p IR drain of subhepatic abscess�20 mL pus
- 06/16 s/p IR drain of left gutter�35 mL of turbid fluid
- 06/18 complete fascial dehiscence
- 3 vac placed with white sponge at 75mmHg
- 3 vac replaced, fascial edges debrided
AFVSS, ABD soft, nondistended, appropriately tender, no R/G, vac functioning, ostomy edematous, pink, productive of stool
WBC 10.2, Hgb 8.0 (8.1)
-Fascial dehiscence
�Continue wound VAC with xeroform/white sponge at 75 mmHg; change MWF
- Remains on Zosyn per ID
�Recommend OOB and ambulate twice daily with abdominal binder; continue with PT
� Pain control with tylenol, oxycodone, Dilaudid
� A-fib with RVR, now in SR, appreciate cardiology
� Continue DVT PPx with subQ heparin
� Continue bit sized regular diet
- Dispo: Anticipate d/c sometime early next week.
- Drains likely to be removed prior to discharge
� Appreciate hospitalist/cards/ID
Subjective Data
Procedure
Exploratory laparotomy, lysis of his adhesions, sigmoidectomy, creation of end colostomy on 06/07/24
Subjective Data
Date of Service: June 23, 2024
Patient is tolerating a diet. She has been out of bed. She still has some abdominal pain. Denies nausea or vomiting.
Objective Data
-
Vital Signs
Temp Pulse Resp BP Pulse Ox
97.9 F 64 16 140/69 97
06/23/24 07:00 06/23/24 08:49 06/23/24 07:00 06/23/24 08:49 06/23/24 07:00
Intake & Output
06/22/24 06/23/24 06/24/24
06:59 06:59 06:59
Intake Total 3378 / 3378 1920 / 1920
Output Total 645 / 645 220 / 220
Balance 2733 / 2733 1700 / 1700
Intake:
Oral fluids 193 / 193 1440 / 1440
Amount of oral supplement(s) 237 / 237
consumed
IV fluids (Total) 30 / 30
IV piggybacks 505 / 505 200 / 200
TPN/PPN 686 / 686 240 / 240
Amount instilled into Drain (
Total)
Left Lower Abdomen Placed in IR
Right Back
Output:
Liquid stool amount 610 / 610
Colostomy 610 / 610
Drain Output (Total) 35 / 35 200 / 200
Abdomen Wound Vac 150 / 150
Left Lower Abdomen Placed in IR
Right Back
Right Lower Abdomen Darius-
[place]
Other:
How many times incontinent 2
MODERATE amount urine
How many times incontinent 2 1
SATURATED amount urine
Lab Results
06/23/24 04:52
06/23/24 04:52
Physical Exam
-
General: No Acute Distress
Abdomen: Soft, Non Distended, Tender (around midline incision) and Other (wound vac in place. PRINCE drains serosanginous)
Skin: Warm and Dry
--- NOTE | 2024-06-23 09:55 | W.PN.ID1 ---
Date of Service
Date of Service: June 23, 2024
Today's Communication
right lower abd drain and right back drains both with minimal output - could consider removal; L lower abdominal drain remains with >20 ccs/day
- c/w with zosyn day 17; 06/07- present
- c/w micafungin day 14; 06/10-present
Assessment / Plan
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
E. coli bacteremia due to bowel perforation, abscess
S/p Exploratory laparotomy, lysis of adhesions, sigmoidectomy, creation of end-colostomy
Wound dehiscence
Ileus
Marked leukocytosis
LONG
Hx Recent right hip replacement
- 06/07 blood cultures both with anaerobe - bacteroides - source bowel perforation; collection
- blood culture from 06/09 now also with a sensitive E coli
- repeat blood cultures x2 06/15 no growth to date
- 06/15 abscess cultures: Pseudomonas aeruginosa, E. coli and Eggerthella lenta
Recommendations:
right lower abd drain and right back drains both with minimal output - could consider removal; L lower abdominal drain remains with >20 ccs/day
- c/w with zosyn day 17; 06/07- present
- c/w micafungin day 14; 06/10-present
Follow white count and temperature curve.
Continue with supportive measures.
follow clinically
����������������������������������������������������������
Chief Complaint
-: Other (bowel perforation, secondary peritonitis)
Subjective / Review of Systems
afebrile
bp stable
'I feel so so'
no new complaints
Vital Signs / Physical Exam
Vital Signs
Vital Signs
Temp Pulse Resp BP Pulse Ox
97.9 F 64 16 140/69 97
06/23/24 07:00 06/23/24 08:49 06/23/24 07:00 06/23/24 08:49 06/23/24 07:00
Physical Exam
Constitutional: No Acute Distress
Cardiovascular: Regular Rate and S1/S2; Negative Murmur or Rub
Pulmonary: Clear and Symmetric; Negative Wheezes or Rales
Gastrointestinal: Soft, Non Tender, Non Distended, Normal Bowel Sounds and Other (stoma pink)
Skin: Warm and Dry; Negative Rash or Jaundice
Lines: Other (drains x3)
Objective Data
Lab Data
Lab Results
06/23/24 04:52
06/23/24 04:52
PT 14.6 Sec (11.4-14.6) 06/07/24 14:37
INR 1.11 06/07/24 14:37
APTT 27.5 Sec (23.4-35.0) 06/07/24 14:37
Estimated Creat Clear 47 ml/min 06/23/24 04:52
Lactic Acid 1.9 mmol/L (0.7-2.0) 06/10/24 03:33
Total Bilirubin 0.7 mg/dl (0.2-1.3) 06/21/24 06:35
AST 34 U/L (14-36) 06/21/24 06:35
ALT 32 U/L (0-35) 06/21/24 06:35
Alkaline Phosphatase 147 U/L (38-126) H 06/21/24 06:35
Most recent labs reviewed.
Micro Results:
06/16/24 15:50 Wound Culture - Final
Abdomen Escherichia coli
Gram Stain - Final
06/16/24 15:50 Anaerobic Culture - Final
Abdomen NO ANAEROBES ISOLATED
06/15/24 16:25 Body Fluid Culture - Final
Fluid Pseudomonas aeruginosa
Escherichia coli
Gram Stain - Final
06/15/24 16:25 Anaerobic Culture - Final
Abdomen Eggerthella lenta
06/14/24 12:56 Blood Culture - Final
Blood/Venous No Growth - Final Report
06/14/24 12:22 Blood Culture - Final
Blood/Venous No Growth - Final Report
06/14/24 09:05 Blood Culture - Final
Blood/Venous No Growth - Final Report
06/09/24 15:02 Blood Culture - Final
Blood/Venous Escherichia coli
Gram Stain - Final
06/07/24 10:27 Blood Culture - Final
Blood/Venous Bacteroides uniformis
Gram Stain - Final
06/07/24 10:26 Blood Culture - Final
Blood/Venous Bacteroides uniformis
Gram Stain - Final
06/09/24 12:09 Blood Culture - Final
Blood/Venous No Growth - Final Report
06/07/24 23:30 MRSA Screen - Final
Nose No Methicillin Resistant Staphylococcus aureus isolated.
06/07/24 10:27 Urine Culture - Final
Urine No Significant Growth
06/07/24 09:19 Influenza Types A & B (EVI) - Final
Nasal Swab Negative for Influenza A & B, NAAT
Negative results must be combined with clinical observations
and patient history.
Nucleic Acid Amplification test (NAAT)performed on the
[employer] platform.
--- NOTE | 2024-06-23 10:50 | PTOTSP ---
Speech Therapy Follow-Up:
Patient observed with improved tolerance of regular solids this date with improved rate/amount regulation and oral clearance. No overt s/s aspiration observed with PO trials at bedside
Recommendations:
- Upgrade diet to regular solids, continue thin liquids
- Supervision during PO intake to ensure adequate rate regulation and oral clearance with solids
- Meds as tolerated
- Aspiration precautions: upright positioning, oral care, small bites/sips, slow rate, alternate solids/liquids, ensure oral clearance.
ELECT[employer]TELLIGENCE OFFICER to continue to follow to ensure diet tolerance,compensatory strategy use, and to need for further objective swallow assessment. Discussed recommendations with RN and MD
[2024-06-23] MEDS: TYLENOL 650 MG PO ×2 (10:56→17:54)
[2024-06-23] MEDS: MYCAMINE 105 MG IV (12:06)
[2024-06-23 12:32] LABS: Glucose - Point of Care 131 mg/dl (70-99)
[2024-06-23 15:00] VITALS: BP 134/72
--- NOTE | 2024-06-23 15:27 | CM ---
Chart reviewed; met with pt and daughter at bedside
PMR consult pending
Continues to work with PT/OT
Wound Care following
Spoke with Jabier from [facility] - received referral
Family updated
Plan - anticipate [facility] vs SNF when medically ready
--- NOTE | 2024-06-23 16:46 | PTCARENOTE ---
Pt refused to get OOB this shift, refused therapy. encouraged IS, education on deep breathing and pressure ulcer prevention, CB in reach. dtr at bedside.
[2024-06-23 17:18] LABS: Glucose - Point of Care 132 mg/dl (70-99)
[2024-06-23] MEDS: PEPCID 20 MG PO (21:14)
[2024-06-23] MEDS: NORVASC 5 MG PO (21:14)
[2024-06-23] MEDS: NEURONTIN 300 MG PO (21:14)
[2024-06-23 21:31] LABS: Glucose - Point of Care 217 mg/dl (70-99)
[2024-06-23 23:35] VITALS: BP 155/70
[2024-06-24] MEDS: ZOSYN 100 IV ×3 (05:16→18:33)
[2024-06-24 06:00] VITALS: BMI 23.6
[2024-06-24] MEDS: ROXICODONE 5 MG PO ×3 (06:15→20:33)
[2024-06-24 06:35] LABS: % Basophils 0.1 % (0-2); % Immature Granulocytes 2.2 % (0-0.5); % Lymphocytes 7.1 % (20.5-51.1); % Monocytes 1.9 % (1.7-9.3); % Neutrophils 88.7 % (42.2-75.2); Absolute Immature Granulocytes 0.2 10^3/uL (0-0.05); Absolute Lymphocytes 0.6 10^3/uL (1.2-3.4); Absolute Monocytes 0.2 10^3/uL (0.1-0.6); Absolute Neutrophils 6.8 10^3/uL (1.4-6.5); Hematocrit 24.7 % (37.0-47.0); Hemoglobin 8.4 g/dL (12.0-16.0); Mean Corpuscular Hgb 30.5 pg (27.0-31.0); Mean Corpuscular Volume 89.8 fL (81.0-99.0); Mean Platelet Volume 10.7 fL (7.4-10.4); Nucleated Red Blood Cells % 0 %; Platelet Count 315 10^3/uL (130-400); Red Blood Cell Count 2.75 10^6/uL (4.20-5.40); Red Cell Dist. Width 14.4 % (11.5-14.5); White Blood Cell Count 7.7 10^3/uL (4.8-10.8)
[2024-06-24 06:43] LABS: Blood Urea Nitrogen 29 mg/dl (7-17); Calcium 7.4 mg/dl (8.4-10.2); Carbon Dioxide 26 mmol/L (22-30); Chloride 100 mmol/L (98-107); Estimated Creatinine Clearance 52 ml/min; Glucose 187 mg/dl (70-99); Potassium 3.3 mmol/L (3.5-5.1); Sodium 132 mmol/L (135-145); eGFR > 60.00
[2024-06-24 07:00] VITALS: BP 148/72
--- NOTE | 2024-06-24 07:30 | W.PN.HOSP.TC ---
Today's Communication/Plan
-
Patient continues to make steady progress even though she feels like she is not making much progress at all. The patient has been advanced to a normal diet and is tolerating it well. Defer to colorectal surgery and infectious diseases in regards
to removal of PICC if indicated.
Assessment / Plan
Assessment / Plan
Assessment/Plan:
-Acute sigmoid bowel perforation with acute surgical abdomen:
Patient's lactic acid was 4.3 in the emergency department
The patient was hyponatremic with a sodium of 123, hypochloremic at 93, low bicarb at 18, elevated BUN at 55, and an elevated creatinine at 1.5 in the emergency department
An abdominal CT showed findings suggesting perforated bowel probable at sigmoid colon with associated retroperitoneal and intraperitoneal free air, air-fluid level suggesting abscess formation and extraluminal stool.
Surgery and colorectal surgery consulted
IV fluid support given
Patient is postop from exploratory laparotomy, sigmoidectomy, and creation of end colostomy
Hydromorphone/Zofran as needed
Continue IV Zosyn -white blood cells at 28.5 on 06/10/2024, on 06/11/2024 her white blood cell count was 26.3, on 06/13/2024 her white blood cell count was 18.9, on 06/15/2024 her white blood cell count was at 29.1, white blood cell count 32.2 on
06/16/2024, white blood cells 33.4 on 06/17/2024, white blood cells 21.7 on 06/19/2024, white blood cells 15.5 on 06/20/2024, white blood cell count on 06/21/2024 was 15.7, white blood cell count on was 10.2 within normal limits
Appreciate infectious diseases recommendations�continue Zosyn and micafungin -patient has a PICC line and we may consider home IV antibiotics if indicated
The patient has been extubated and is on room air
The patient has been downgraded to telemetry as she no longer is on pressors and is not intubated.
TPN initiated by surgery -TPN continued -would be ruth to consider increasing potassium in TPN formulation as the patient has been repleted multiple times.
Patient has been advanced to a regular diet and is tolerating it well
Follow-up CT of the abdomen on 06/15/2024 showed tubular shaped fluid collection along the posterior right lobe of the liver as above with thin enhancing rim, up to 7 cm diameter. Increased as compared with prior and exerts some mass effect against
the right lobe of the liver, suspicious for abscess.
Culture from abdominal abscess preliminary resulted as positive for anaerobic bacteria -
Pseudomonas aeruginosa and E. coli found IR drainage of intra-abdominal fluid.
ID recommends changing of LLQ -was changed
Patient has been advanced to a regular diet.
Patient is currently has abdominal dehiscence and cannot sit up or get out of bed without an abdominal binder as per colorectal surgery recommendations.
TPN discontinued
-Joint pain:
Gabapentin added
-Left hand swelling:
Patient had left hand swelling on 06/14/2024
Bilateral upper extremity ultrasound ordered -negative for bilateral upper extremity deep venous thrombosis
-Hyponatremia: Resolved
Patient was found to be hyponatremic with a sodium of 123 in the emergency department.
Sodium is 129 on 06/08/2024 -is 128 on 06/09/2024, is 132 on 06/10/2024, 139 on 06/14/2019,
GFR at baseline
Appreciate nephrology recommendations
-Hypokalemia:
The patient had hypokalemia at 3.0 on 06/13/2024 and 3.1 on 06/13/2024, 3.1 on 06/14/24, potassium was 3.0 on 06/15/2024, K remained 3.0 on 06/16/24, remained 3.0 on 06/17/2024
More potassium repleted on 06/17/2024�continue to follow with labs
Recommend increasing potassium in TPN formulation as the patient is consistently needed ongoing potassium repletion.
Potassium on 06/23/2024 was 3.1�repleted
-Hypomagnesemia:
Patient had a magnesium level of 1.5 on 06/15/2024 -repleted - was 1.8 on 06/16/24 WNL
Continue to follow labs
-Acute kidney injury secondary to bowel perforation/infection/acute process:
Patient's baseline creatinine is 0.8 taken on 05/12/2024
Lactic acid was 4.3 in the emergency department
On presentation to the emergency department on 06/07/2024 the patient had a creatinine of 1.5 indicating acute kidney injury.
On 06/08/2024 creatinine is 2.0 continue to trend creatinine -was 2.4 at 12: 02 on 06/08/2024 and has begun trending down on 06/09/2024 at 2.2, remained 2.2 on 06/10/2024, creatinine was 1.2 on 06/13/2024, creatinine is 0.9 on 06/17/2024 within normal
limits.
Atrial fibrillation with rapid ventricular response:
New diagnosis found postoperatively.
[id number] of 4 due to the age being greater than 75, female, hypertension
Patient is now back in sinus rhythm after receiving Amio
Will start low-dose beta-norma when blood pressure will allow.
Echocardiogram conducted on 06/09/2024 showed aortic sclerosis without stenosis and no aortic regurgitation. Moderate tricuspid regurgitation. Mild pulmonic regurgitation. Pleural effusion present
Continue IV Lopressor
-Essential hypertension:
Appreciate cardiology recommendations
Holding home hypertension meds -will consider resuming medications once patient is more hemodynamically stable postoperatively
Metoprolol tartrate 2.5 mg IV every 6 - continue - will switch to Metoprolol 12.5mg BID when able to take oral meds
Cardiology recommend as needed hydralazine for additional BP control
-Mild cognitive impairment:
Monitoring
-S/p ostomy:
Ostomy on the left side
NGT removed
N.p.o. with sips/chips
Wound healing well, ostomy producing stool, maintain wound care
Colorectal surgery continues to follow
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
appreciate ortho recommendations
enrique removed
will need PT/OT--likely SNF
-Interstitial lung disease with bronchiectasis
-Past medical history of spontaneous pneumothorax
FULL CODE STATUS
DVT prophylaxis: Heparin sq
Stress ulcer prophylaxis: Famotidine
Imaging:
-Abdominal CT conducted on 06/07/2024:
New findings suggesting perforated bowel probable sigmoid colon with associated retroperitoneal and intraperitoneal free air, air-fluid levels suggesting abscess formation and extraluminal stool.
Mild small bowel dilatation probably ileus due to reactive change. New
Tiny bilateral pleural effusions. New
Too small to characterize hypodense left renal lesion likely a benign cyst.
Mild lingular bronchiectasis. Stable
Critical value: Free air.
-Chest x-ray conducted on 06/07/2024:
Endotracheal tube is present with its tip 6 cm above the rafiq.
-Echocardiogram conducted on 06/09/2024:
Normal biventricular size and systolic function without regional wall motion abnormality.
Mild to moderate mitral regurgitation.
Pleural effusion present.
No prior study available for comparison.
-Abdominal CT conducted on 06/15/2024:
IMPRESSION:
1. Somewhat tubular shaped fluid collection along the posterior right lobe of the liver as above with thin enhancing rim, up to 7 cm diameter. Increased as compared with prior and exerts some mass effect against the right lobe of the liver,
suspicious for abscess.
2. Small volume of free fluid adjacent the liver and spleen. Small volume of unorganized free fluid in the anterior and left abdomen as above.
3. Anasarca. Small bilateral pleural effusions with adjacent atelectasis, increased as compared to prior.
4. Trace residual pneumoperitoneum. Partially open abdominal wall incision with some associated abdominal wall emphysema.
5. Mild right hydronephrosis. No ureteral filling defects identified.
6. Small volume of gas within the urinary bladder likely related to previous Ramon catheter.
7. Approximately 1.8 cm left ovarian cyst.
-Upper Limb Bilateral Peripheral Vascular US conducted on 06/15/24:
FINDINGS: PICC is noted in the left brachial, axillary, and subclavian veins. The deep venous systems show normal grayscale appearance, normal conventional Doppler waveform with appropriate response to respiration and augmentation, and normal color
flow Doppler signal. Where feasible, there is expected compressibility of the vessels.
IMPRESSION: Negative for bilateral upper extremity deep venous thrombosis.
Procedures:
-Ultrasound guided drainage of an intra-abdominal fluid collection on 06/15/24:
TECHNIQUE: The risks and benefits of the procedure were discussed with the patient and informed, written consent was obtained. The patient was positioned prone with a right side up. Ultrasound was performed of the right hepatorenal region, which
confirmed a fluid collection superior to the right kidney and adjacent to the liver, as seen on recent CT.
The right posterior flank was prepped and draped in the usual sterile fashion. Maximum sterile barrier techniques were used including wearing cap and mask and sterile gown and sterile gloves and a large sterile sheet and hand hygiene and 2%
chlorhexidine for cutaneous antisepsis. Split doses of Versed and fentanyl were administered by a board certified nurse under continuous hemodynamic monitoring.
Preliminary ultrasound was performed. 2% lidocaine was administered subcutaneously for local anesthesia. Next an 18-gauge needle was advanced into the abdominal fluid collection under real-time ultrasound guidance. Purulent fluid was aspirated
through the needle. An 035 guidewire was then advanced through the needle and positioned within the fluid collection. Following serial dilation of the tract, an 8.5 Camb[place]ian locking loop catheter was advanced over the guidewire, and the pigtail was
coiled within the collection.
A total of 20 milliliters of purulent fluid was aspirated, and sent for culture and sensitivity.
Anticipated Discharge: > 48 hours
Subjective/Interval History
-
Date of Service: June 24, 2024
Met with patient at the bedside. She appears better than she has throughout this admission and is speaking in full sentences. Seen sitting upright in her bed eating food. When asked if she needs anything she said 'I do not need anything hun.'
When asked how she is doing she states 'so-so.' When asked if she is experiencing any pain she states that her abdomen hurts.
Objective Data
-
Labs:
Laboratory Results
06/24/24
05:41
WBC 7.7
Hgb 8.4 L
Hct 24.7 L
Plt Count 315
Sodium 132 L
Potassium 3.3 L
Chloride 100
Carbon Dioxide 26
BUN 29 H
Creatinine 0.9
Glucose 187 H
Calcium 7.4 L
Vital Signs:
Vital Signs
Temp Pulse Resp BP Pulse Ox
97.7 F 68 14 148/72 94
06/24/24 07:00 06/24/24 07:00 06/24/24 07:00 06/24/24 07:00 06/24/24 07:00
I&O
06/23/24 06/24/24 06/25/24
06:59 06:59 06:59
Intake Total 1920 / 1920 790 / 790
Output Total 220 / 220 35 / 35
Balance 1700 / 1700 755 / 755
Review of Systems
-
History Source: Patient
All other systems: Reviewed and negative
Constitutional: Reports Fatigue
Respiratory: Reports No Symptoms
Cardiac: Reports No Symptoms
Abdomen/GI: Reports Abdominal Pain
Breast: Reports No Symptoms
Genitourinary: Reports No Symptoms
Musculoskeletal: Reports No Symptoms
Skin: Reports No Symptoms
Neuro: Reports No Symptoms
Endocrine: Reports No Symptoms
Hematologic / Lymphatic: Reports No Symptoms
Physical Exam
-
General: Well Developed
HEENT: Normocephalic, Atraumatic and Moist Mucous Membranes
Respiratory: Clear to Auscultation
Cardiac: S1/S2; Negative Murmur or Rub
Breast: Deferred by me
GI: Soft, Nontender and Nondistended
Rectal: Deferred by Provider
Genito-urinary: Deferred by me
Musculoskeletal: No Clubbing and No Cyanosis
Neuro: Awake, Alert, Oriented and AO x 3
Psych: Calm
[2024-06-24 08:56] LABS: Glucose - Point of Care 149 mg/dl (70-99)
[2024-06-24] MEDS: NOVOLOG FLEXPEN-MODERATE RESISTANCE SC (09:17)
[2024-06-24] MEDS: DILAUDID 0.5 MG IV (09:23)
[2024-06-24] MEDS: NEURONTIN 100 MG PO ×2 (09:24→16:37)
[2024-06-24] MEDS: HEPARIN 5000 UNITS SC ×2 (09:24→16:37)
[2024-06-24] MEDS: LOPRESSOR 12.5 MG PO ×2 (09:25→20:27)
--- NOTE | 2024-06-24 10:45 | WOUNDNOTE ---
MEDIAL ASPECT OF STOMA
--- NOTE | 2024-06-24 10:46 | WOUNDNOTE ---
MIDLINE ABDOMINAL INCISION
--- NOTE | 2024-06-24 10:48 | WOUNDNOTE ---
MIDLINE ABDOMINAL INCISION
--- NOTE | 2024-06-24 10:54 | WOUNDNOTE ---
WO RN NOTE: Patient visited for ostomy change. Midline wound vac changed by Dr. Moreno today. Ostomy had small amount of output and continues to be pink and budded. A small mucocutaneous separation noted medially at stoma site. The area was cleaned
and loosely packed with drainage. Appliance changed with ostomy barrier # [id number] and pouch number #[id number]. Patient given incontinence care during assessment. Sacrum and heels are intact. Static air overlay properly inflated. Patient turned on right
semi-side lying position with heels off-loaded on pillows. TPN recently discontinued. Per chart review appetite is fair. Stoma supplies at bedside. Will continue to follow during in-patient stay.
--- NOTE | 2024-06-24 11:14 | WOUNDNOTE ---
WO RN NOTE: Patient visited for ostomy change. Midline wound vac changed by Dr. Moreno today. Ostomy had small amount of output and continues to be pink and budded. A small mucocutaneous separation noted medially at stoma site. The area was cleaned
and loosely packed with drainage. Appliance changed with ostomy barrier # [id number] and pouch number #[id number]. Patient given incontinence care during assessment. Sacrum and heels are intact. Static air overlay properly inflated. Patient turned on right
semi-side lying position with heels off-loaded on pillows. TPN recently discontinued. Per chart review appetite is fair. Stoma supplies at bedside. Plan is for [facility] vs SN[facility]. Will continue to follow during in-patient stay.
[2024-06-24 12:20] LABS: Glucose - Point of Care 154 mg/dl (70-99)
[2024-06-24] MEDS: NOVOLOG FLEXPEN-MODERATE RESISTANCE 1 UNITS SC (13:19)
--- NOTE | 2024-06-24 13:42 | W.PN.UPDATE ---
Update Note
Progress Note Update
Seen and examined by me independently in collaboration with the electromedical equipment technician.
Lab data and imaging data reviewed.
Addendum as below :
Tolerating diet. Eating a sandwich when I went in. No nausea vomiting. Abdominal pain is okay.
Denies any shortness of breath or chest pain.
Chest clear.
Heart sound S1 plus S2 heard regular.
Bilateral ankle edema noted. Weight has been coming down today 154 pounds.
No further hypoglycemia.
Blood pressure mostly under goal: Slightly higher today.
Continue with antibiotics and antifungals per ID.
Continue with PT OT treatments.
Follow on sliding scale. Will consider increasing Norvasc if blood pressure not on the goal.
Follow weights daily.
--- NOTE | 2024-06-24 14:00 | W.PN.CRS1 ---
Addendum entered and electronically signed by Jesse Moreno MD 06/24/24 14:50:
updated daughter, Susanna, over the phone
Addendum entered and electronically signed by Jesse Moreno MD 06/24/24 14:43:
Missing info: consult to IR for drain study and possible removal of IR drains
Original Note:
Today's Communication / Plan
-
as above
Assessment/Plan
-
79-year-old female with PMH of HTN, HLD, interstitial lung disease with bronchiectasis, history of pneumonia multiple times, history of spontaneous pneumothorax x 2 who presents 8 days after right hip replacement; 4 days prior to admission, she
started to develop abdominal pain and nausea with decreased bowel function; the abdominal pain and nausea/vomiting continue to worsen; she denies any fevers, chest pain, or urinary symptoms; she does have dyspnea due to the abdominal pain; her last
colonoscopy was 2 years ago which she reports as normal (report not available to me); in the ED, her WBC was 9.3, CR 1.5 and a CTAP was done which shows moderate free air, extraluminal stool adjacent to the mid sigmoid colon with concern of sigmoid
perforation possibly due to diverticulitis
06/07 (POD 16) ex lap, sigmoidectomy with end colostomy creation for perforated stercoral colitis; extensive washout ~9L for feculent peritonitis
- extubated and pressors weaned off by POD 1; initially oliguric, but UOP recovered; A-fib with RVR, stabilized on Amio
- 06/12 CT - c/f subhepatic abscess, d/w [place] and felt that it more likely represents free fluid; remainder post-op changes
- 06/13 opened enrique at inferior midline for murky drainage
- 06/15 mild fascial dehiscence noted; CT -subhepatic abscess increased, fluid along the left gutter; s/p IR drain of subhepatic abscess�20 mL pus
- 06/16 s/p IR drain of left gutter�35 mL of turbid fluid
- 06/18 complete fascial dehiscence
- 3/3 vac placed with white sponge at 75mmHg
- 3/ vac replaced, fascial edges debrided
- 3/ vac replaced, off TPN
AFVSS
WBC 7.7 from 12.1, Hb 8.4 from 8.1, Cr 0.9
-Fascial dehiscence
�Continue wound VAC with xeroform over abdominal contents, then white sponge and black sponge, vac at 75 mmHg; change MWF
�Recommend OOB and ambulate twice daily with abdominal binder; appreciate PT, recommend PT, [facility] if possible to help manage the vac
� Pain control with tylenol, oxycodone, dilaudid
� A-fib with RVR, now in SR, appreciate cardiology
� Continue DVT PPx with subQ heparin
� Continue regular diet; ok to hold TPN
� Appreciate hospitalist
Subjective Data
Procedure
Exploratory laparotomy, lysis of his adhesions, sigmoidectomy, creation of end colostomy on 06/07/24
Subjective Data
Date of Service: June 24, 2024
No issues overnight. Tolerating a diet with ostomy function. Still having pain, somewhat controlled with pain medicine.
Objective Data
-
Vital Signs
Temp Pulse Resp BP Pulse Ox
97.7 F 68 14 148/72 94
06/24/24 07:00 06/24/24 07:00 06/24/24 07:00 06/24/24 07:00 06/24/24 07:00
Intake & Output
06/23/24 06/24/24 06/25/24
06:59 06:59 06:59
Intake Total 1920 / 1920 790 / 790
Output Total 220 / 220 35 / 35
Balance 1700 / 1700 755 / 755
Intake:
Oral fluids 1440 / 1440 480 / 480
IV fluids (Total) 30 / 30 100 / 100
IV piggybacks 200 / 200 200 / 200
TPN/PPN 240 / 240
Amount instilled into Drain (
Total)
Left Lower Abdomen Placed in IR
Right Back
Output:
Liquid stool amount
Colostomy
Drain Output (Total) 200 / 200 35 / 35
Abdomen Wound Vac 150 / 150
Left Lower Abdomen Placed in IR
Right Back
Right Lower Abdomen Darius-
[place]
Other:
How many times incontinent 2
MODERATE amount urine
How many times incontinent 1 3
SATURATED amount urine
Lab Results
06/24/24 05:41
06/24/24 05:41
Physical Exam
-
General: No Acute Distress, AOx3 and Other (Depressed mood)
Abdomen: Soft, Non Distended, Tender (Appropriately tender near midline wound), No Guarding, No Rebound and Other (VAC replaced at bedside, functioning well, no purulence noted from midline wound; ostomy pink and productive of stool; IR drains with
serous output, OR drain with thicker serous output)
Skin: Warm and Dry
Wound: No Signs of Infection and No Skin Erythema
[2024-06-24 14:18] VITALS: BP 133/70
--- NOTE | 2024-06-24 15:06 | WOUNDNOTE ---
WOC RN NOTE: Per Dr. Moreno, patient will go to SNF with abdominal wound vac. He prefers patient go to [facility] so Colorectal Team can be available to assist with vac if need. NEETA Zaldivar aware of plan and referral has been sent to [facility].
--- NOTE | 2024-06-24 15:31 | CM ---
Chart reviewed
PMR consult pending
Continues to work with PT/OT
Wound Care following
Spoke with Jabier from [facility] - updated
Plan - anticipate [facility] vs [facility] when medically ready
[2024-06-24 15:40] VITALS: BP 134/70
--- NOTE | 2024-06-24 16:26 | CON.MD ---
Consultation - Medical
-
Referring Provider:�Dr. Martir Jade
Chief Complaint:�Bowel perforation after hip replacement
�
History of Present Illness:�79-year-old female with PMH (as below) presented to [facility] on 06/07/2024 with abdominal pain nausea and vomiting. CT scanning of the abdomen and pelvis noting likely sigmoid bowel perforation with
retroperitoneal and intraperitoneal free air and air-fluid level suggesting abscess formation and extraluminal stool from stercoral colitis. Septic shock. On 06/07/2024 she had an exploratory laparotomy, lysis of adhesions, sigmoidectomy and
creation of end colostomy by Dr. Jesse Moreno. Developed LONG. Treated with Zosyn for bacteremia and placed on micafungin. Then developed A-fib with RVR. Extubated 06/08/24. Started on TPN 06/14/24-06/22/24. Had purulence from area near umbilicus.
CT guided abdominal abscess drainage 06/15/24. Pseudomonas aeruginosa and E. coli found IR drainage of intra-abdominal fluid. Requires abdominal binder to sit up or get out of bed per colorectal surgery
�
Past Medical History:�essential HTN, R hip BARRINGTON on 05/30/24, mild cognitive impairment, interstitial lung disease, bronchiectasis, h/o spontaneous PTX
Procedure History:�Right BARRINGTON 05/30/[address] Lyon
Family History:�None pertinent
�
Social History:�
Functional Level Premorbidly:�Independent with all activities�
Functional Level Currently:�Mod assist grooming, dependent toileting and lower extremity self-care. Max assist bed mobility. Mod to max assist transfers.
�
Tobacco:�Former
Alcohol:�Occasional
Drug use:�Denies�
�
Lives with:�Alone
24-hour assistance available:�No
Number of floors:�1
# steps to enter:�5
Driving:�Yes
Occupation:�Retired
�
�
Allergies:�
Allergy/AdvReac Type Severity Reaction Status Date / Time
iodine Allergy Hives Verified 06/07/24 09:13
�
Review of Systems:�
Constitutional: (x) abNormal _tired
Eye: (x) Normal _
Ear/Nose/Throat: (x) Normal _
Respiratory: (x) Normal _
Cardiovascular: (x) Normal _
Gastrointestinal: (x) abNormal _ostomy, abdominal surgery
Genitourinary: (x) Normal _
Musculoskeletal: (x) abNormal _right hip replacement
Integumentary: (x) abNormal _hip and abdominal wounds. No heel or sacral concerns.
Neurologic: (x) Normal _
Psychiatric: (x) abNormal _tired, frustrated, anxious and depressed.
Endocrine: (x) Normal _
Hematologic/Lymphatic: (x) Normal _
Allergic/Immunologic: (x) Normal _
�
Medications:�
Active Current Visit Medication List
Category Date Time Status
Acetaminophen [Tylenol] Med 06/18/24 14:07 Active
650 mg PO Q4HPRN PRN
Amlodipine [Norvasc] Med 06/20/24 22:00 Active
5 mg PO HS
Dextrose 50%-Water [Dextrose 50% Syringe] Med 06/14/24 09:50 Active
12.5 grams IV [id number] PRN
Famotidine [Pepcid] Med 06/21/24 22:00 Active
20 mg PO HS
Flush (0.9% Sodium Chloride) [Flush (Nss)] Med 06/07/24 20:00 Active
See Dose Instructions IV PER PROTOCOL
Gabapentin [Neurontin] Med 06/20/24 16:00 Active
100 mg PO BID@0800,1600
Gabapentin [Neurontin] Med 06/20/24 22:00 Active
300 mg PO HS
Glucagon [GlucaGen] Med 06/14/24 09:50 Active
1 mg IM PRN PRN
Heparin Med 06/10/24 16:00 Active
5,000 units SC Q8
Insulin Aspart Corrective Mod [Novolog Flexpen-Moderate Med 06/24/24 07:30 Active
Resistance]
See Protocol SC AC
Metoprolol [Lopressor] Med 06/18/24 20:00 Active
12.5 mg PO BID
Micafungin Sodium [Mycamine] 100 mg Med 06/16/24 12:00 Active
Dextrose 5%/Water 100 ml [D5w] 100 ml
IV Q24H
Ondansetron Injectable [Zofran] Med 06/07/24 19:46 Active
4 mg IV Q6HPRN PRN
Oxycodone [Roxicodone] Med 06/18/24 13:56 Active
5 mg PO Q4HPRN PRN
Piperacillin/Tazo 4.5 Gram [Zosyn] Med 06/14/24 12:00 Active
4.5 gram in 100 ml IV Q6H
�
Vitals:�
Temp Pulse Resp BP Pulse Ox
98.1 F 85 17 134/70 94
06/24/24 15:40 06/24/24 15:40 06/24/24 15:40 06/24/24 15:40 06/24/24 15:40
Height 5 ft 8 in
Actual Weight 70.3 kg
Body Mass Index (BMI) 23.6
�
Physical Exam:�
General Appearance/Observation: Well-developed, well-nourished female in no apparent distress.�
Pain/Comfort Assessment: mild to moderate abdominal pain.
Mood/Affect: Appropriate�
�
Integumentary/Operative Site: osotomy, multiple drain sites, abdominal wound vac, right hip incision healing well with steri-strips.
�
Eyes: Conjunctiva/Lids: normal���� Pupils: pupils equal round and reactive to light and Accommodation�
Ears/Nose/Throat: oral mucosa moist,� throat a little dry.������������ Lips/Teeth/Gums: normal�
Cardiovascular: Heart: regular, no murmur�
Pulses: dorsalis pedis palpable bilaterally�
Respiratory: Respiratory Effort/Chest Expansion: normal������� Auscultation: Clear to auscultation bilaterally�
Gastrointestinal: abdomen not tender, no distension, normal abdominal bowel sounds
Genitourinary: No Ramon�
Extremities:�Edema: Bilateral LE pitting edema mostly in the feet�Cyanosis: None�Trophic�changes: None
�
Neurology Exam:
Orientation: Alert, Oriented to self, Time, Place�
Memory: Intact for recent medical concerns
Comprehension: Intact
Two step command: Intact
Cranial Nerves:
�� CNII:�Pupillary light reflex: Intact���
�� CN VII:�Facial movement: Symmetric
�� CN VIII:�Hearing: Normal
�� CN IX/X:�Speech & swallow: Normal,�Position of Uvula: Midline
�� CN XI:�Shoulder shrug: Symmetric
�� CN XII:�Tongue protrusion: Midline
Sensory:
�� Light touch: Intact in bilateral upper and lower extremities
�
Reflexes:
�� Biceps: 2+ bilaterally
�� Brachioradialis: 2+ bilaterally
�� Triceps: 2+ bilaterally
�� Patellar: 2+ bilaterally
�� Achilles: 2+ bilaterally
�� Babinski: Down going bilaterally
�� Clonus: None
�� David: Negative bilaterally�
Musculoskeletal: Motor: (Manual muscle scale 0-5)�
Muscle SA EF WE EE FF FA HF KE DF EHL PF
Right� 4 5 5 5 5 4 1 3+ 5 5 5
Left 4 5 5 5 5 4 2 4 5 5 5
�
Tone: Normal in all extremities�
Range of Motion: Passively within normal limits in all extremities�
�
Lab Results
Laboratory Data
06/24/24 05:41
06/24/24 05:41
PT 14.6 Sec (11.4-14.6) 06/07/24 14:37
INR 1.11 06/07/24 14:37
APTT 27.5 Sec (23.4-35.0) 06/07/24 14:37
Total Bilirubin 0.7 mg/dl (0.2-1.3) 06/21/24 06:35
AST 34 U/L (14-36) 06/21/24 06:35
ALT 32 U/L (0-35) 06/21/24 06:35
Alkaline Phosphatase 147 U/L (38-126) H 06/21/24 06:35
Total Protein 5.1 g/dl (6.3-8.2) L 06/21/24 06:35
Albumin 2.2 g/dl (3.5-5.0) L 06/21/24 06:35
�
Diagnostic Results:�as per HPI�
�
Assessment
79y/o F PMH (essential HTN, R hip BARRINGTON on 05/30/24, mild cognitive impairment, interstitial lung disease, bronchiectasis, spontaneous PTX) with 06/07/2024 septic shock from bowel perforation from stercoral colitis s/p 06/07/2024 she had an exploratory
laparotomy, lysis of adhesions, sigmoidectomy and creation of end colostomy by Dr. Jesse Moreno with hospitalist course complicated by LONG, A-fib with RVR, TPN 06/14/24-06/22/24, abdominal wound dehiscence, and CT guided abdominal abscess drainage
06/15/24.
�
Plan�
PM&R�PT/OT to increase independence with ADLs, improve balance, coordination, endurance, strength, mobility, community reintegration, decreased burden of care on others and family education.�
�
Status post Right total hip replacement 05/30/24: Monitor incision, pain control, may shower, posterior hip precautions for 6 weeks.
Perforated bowel with septic shock, colostomy with wound dehiscence:
-Zosyn since 06/07 and micafungin since 06/10
-Ostomy management, monitor output
-Continue with wound VAC
-Abdominal binder when sitting up in bed or out of bed per colorectal surgery
Lower extremity swelling: Consider TEDS
HTN: Amlodipine 5 mg at night, monitor
Anemia: Postoperative stable at 8.4 from 8, has been in the 8 range over the last week, continue to monitor.�
A-fib with RVR: Metoprolol for rate control
Psych: Psychology consult.� Monitor mood, adjust medications as needed.�
Skin: monitor for pressure sores/rashes/lesions.�
Pain: acetaminophen or oxycodone as needed.� Gabapentin 100 mg twice daily and 300 mg at night.l.�
Bladder: Time void, PVRs, PRN straight cath.�
FEN: Hyponatremia with elevated BUN. Management per nephrology.
-Hypokalemia potassium replacement.
GI Prophylaxis: Famotidine
DVT Prophylaxis: Mechanical and heparin
Pulmonary: Incentive spirometry�
Safety: Continue to reinforce assistance with all transfers.�
Code Status:� Full code
Dispo�(date/plan/equipment needs): Home with family care.� Social history reviewed.
Functional and Medical Goals:�Modified Independent with ADL�s, ambulation, transfers�
Discharge Destination:�Acute inpatient rehabilitation when medically stable.
Summary of recommendations:
-�Discharge Destination:�Acute inpatient rehabilitation when medically stable.
Status post Right total hip replacement 05/30/24: Monitor incision, pain control, may shower, posterior hip precautions for 6 weeks.
Perforated bowel with septic shock, colostomy with wound dehiscence:
-Zosyn since 06/07 and micafungin since 06/10
-Ostomy management, monitor output
-Continue with wound VAC
-Abdominal binder when sitting up in bed or out of bed per colorectal surgery
Lower extremity swelling: Consider TEDS
Thank you for allowing me to care for your patient. Please contact me with any questions or concerns.
[2024-06-24] MEDS: MYCAMINE 105 MG IV (16:39)
[2024-06-24 17:50] LABS: Glucose - Point of Care 260 mg/dl (70-99)
[2024-06-24] MEDS: NOVOLOG FLEXPEN-MODERATE RESISTANCE 5 UNITS SC (18:32)
--- NOTE | 2024-06-24 18:36 | VATNOTE ---
assessed pt's arms for peripheral IV line start in attempt to remove picc line as no need other than 2 IV antibiotics. Extremely poor vasculature; this VAT RN decided to leave PICC in; discussed with Katie PARRA.
--- NOTE | 2024-06-24 18:54 | VATNOTE ---
ROUTINE WEEKLY RD OF 5R DL R PICC DONE. SITE APPEARS WNL. ALL MEASURMENTS UNCHANGED.
[2024-06-24 22:13] LABS: Glucose - Point of Care 219 mg/dl (70-99)
[2024-06-24] MEDS: NORVASC 5 MG PO (22:28)
[2024-06-24] MEDS: PEPCID 20 MG PO (22:28)
[2024-06-24] MEDS: NEURONTIN 300 MG PO (22:28)
[2024-06-24 23:20] VITALS: BP 136/72
[2024-06-25] MEDS: ZOSYN 100 IV ×3 (00:12→18:45)
[2024-06-25] MEDS: HEPARIN 5000 UNITS SC ×3 (00:12→18:30)
[2024-06-25] MEDS: ROXICODONE 5 MG PO ×4 (04:58→20:27)
[2024-06-25 05:18] VITALS: BMI 23.6
--- NOTE | 2024-06-25 05:33 | PTCARENOTE ---
Pt continent throughout shift for multiple voids using bedpan and assisting with turns and bridging.
[2024-06-25 07:08] VITALS: BP 129/67
[2024-06-25 07:18] LABS: Glucose - Point of Care 153 mg/dl (70-99)
[2024-06-25 07:22] LABS: Blood Urea Nitrogen 30 mg/dl (7-17); Calcium 7.5 mg/dl (8.4-10.2); Carbon Dioxide 27 mmol/L (22-30); Chloride 98 mmol/L (98-107); Estimated Creatinine Clearance 47 ml/min; Glucose 144 mg/dl (70-99); Potassium 2.7 mmol/L (3.5-5.1); Sodium 132 mmol/L (135-145); eGFR 57.66
[2024-06-25 07:26] LABS: Hematocrit 19.3 % (37.0-47.0); Hemoglobin 6.7 g/dL (12.0-16.0); Mean Corp Hgb Conc. 34.7 g/dL (33.0-37.0); Mean Corpuscular Volume 89.4 fL (81.0-99.0); Mean Platelet Volume 10.7 fL (7.4-10.4); Platelet Count 325 10^3/uL (130-400); Red Blood Cell Count 2.16 10^6/uL (4.20-5.40); Red Cell Dist. Width 14.3 % (11.5-14.5); White Blood Cell Count 7.2 10^3/uL (4.8-10.8)
[2024-06-25 08:08] VITALS: BP 129/67
[2024-06-25 08:41] LABS: Hematocrit 21.2 % (37.0-47.0)
[2024-06-25 09:14] LABS: % Basophils 0.4 % (0-2); % Immature Granulocytes 4.3 % (0-0.5); % Monocytes 2.1 % (1.7-9.3); % Neutrophils 79.2 % (42.2-75.2); Absolute Immature Granulocytes 0.3 10^3/uL (0-0.05); Absolute Monocytes 0.2 10^3/uL (0.1-0.6); Absolute Neutrophils 5.7 10^3/uL (1.4-6.5); Nucleated Red Blood Cells % 0 %
[2024-06-25 09:17] LABS: Magnesium 1.6 mg/dl (1.6-2.3)
--- NOTE | 2024-06-25 09:42 | W.PN.HOSP.TC ---
Today's Communication/Plan
-
Replete potassium p.o. and IV.
Follow H&H. Aim to keep hemoglobin more than 7.
Assessment / Plan
Assessment / Plan
Assessment/Plan:
-Acute sigmoid bowel perforation with acute surgical abdomen
-E. coli bacteremia due to bowel perforation, abscess
An abdominal CT showed findings suggesting perforated bowel probable at sigmoid colon with associated retroperitoneal and intraperitoneal free air, air-fluid level suggesting abscess formation and extraluminal stool.
Patient is postop from exploratory laparotomy, sigmoidectomy, and creation of end colostomy
Hydromorphone/Zofran as needed
Appreciate infectious diseases recommendations�continue Zosyn and micafungin -patient has a PICC line and we may consider home IV antibiotics if indicated
The patient has been extubated and is on room air
Off of TPN
Patient has been advanced to a regular diet and is tolerating it well
Follow-up CT of the abdomen on 06/15/2024 showed tubular shaped fluid collection along the posterior right lobe of the liver as above with thin enhancing rim, up to 7 cm diameter. Increased as compared with prior and exerts some mass effect against
the right lobe of the liver, suspicious for abscess.
Culture from abdominal abscess preliminary resulted as positive for anaerobic bacteria -
Pseudomonas aeruginosa and E. coli found IR drainage of intra-abdominal fluid.
Patient is currently has abdominal dehiscence and cannot sit up or get out of bed without an abdominal binder as per colorectal surgery recommendations. Has wound vac to abdomen.
-Hypokalemia:
replete
-Acute kidney injury secondary to bowel perforation/infection/acute process:
resolved
Atrial fibrillation with rapid ventricular response:
New diagnosis found postoperatively.
[id number] of 4 due to the age being greater than 75, female, hypertension
Patient is now back in sinus rhythm after receiving Amio
started low-dose beta-norma
Echocardiogram conducted on 06/09/2024 showed aortic sclerosis without stenosis and no aortic regurgitation. Moderate tricuspid regurgitation. Mild pulmonic regurgitation. Pleural effusion present
-Essential hypertension:
moslty under goal
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
appreciate ortho recommendations
enrique removed
cw PT/OT-
-Interstitial lung disease with bronchiectasis
-Past medical history of spontaneous pneumothorax
FULL CODE STATUS
DVT prophylaxis: Heparin sq
Stress ulcer prophylaxis: Famotidine
Acute rehab once medically/surgically stable appreciate transit specialist input.
Anticipated Discharge: > 48 hours
Subjective/Interval History
-
Date of Service: June 25, 2024
Patient tolerating increased oral intake.
Denies any shortness of breath or chest pain.
No fever chills. Feels generally weak.
Objective Data
-
Labs:
Laboratory Results
06/25/24 06/25/24
06:38 08:31
WBC 7.2
Hgb 6.7 L* D 7.0 L
Hct 19.3 L* 21.2 L
Plt Count 325
Sodium 132 L
Potassium 2.7 L*
Chloride 98
Carbon Dioxide 27
BUN 30 H
Creatinine 1.0
Glucose 144 H
Calcium 7.5 L
Vital Signs:
Vital Signs
Temp Pulse Resp BP Pulse Ox
98.1 F 74 16 129/67 93
06/25/24 07:08 06/25/24 07:08 06/25/24 07:08 06/25/24 07:08 06/25/24 07:08
I&O
06/24/24 06/25/24 06/26/24
06:59 06:59 07:59
Intake Total 790 / 790 1760 / 1760
Output Total 35 / 35 330 / 330
Balance 755 / 755 1430 / 1430
Review of Systems
-
EENT: Denies Sore Throat
Respiratory: Denies Trouble Breathing
Cardiac: Denies Chest Pain
Neuro: Denies Dizzy
Physical Exam
-
General: Comfortable
Respiratory: Clear to Auscultation (anteriorly), Non Labored Respirations and Accessory Resp Muscle Use
Cardiac: Regular Rhythm and S1/S2; Negative Tachycardic
GI: Soft, Nontender, Ostomy and Other (drains in situ)
Musculoskeletal: Negative No Edema (bl ankle edema)
Neuro: AO x 3
Data Reviewed
-
Labs: Labs Reviewed by me
[2024-06-25] MEDS: NOVOLOG FLEXPEN-MODERATE RESISTANCE 1 UNITS SC (09:43)
[2024-06-25] MEDS: KCL PO (09:46)
[2024-06-25] MEDS: NEURONTIN 100 MG PO ×2 (09:47→18:31)
[2024-06-25] MEDS: LOPRESSOR 12.5 MG PO ×2 (09:48→20:27)
[2024-06-25] MEDS: KCL 40 MEQ PO (09:53)
[2024-06-25] MEDS: KCL 270 MEQ IV (09:53)
--- NOTE | 2024-06-25 11:03 | W.PN.SURGUPD ---
Surgical Update
Surgical Update
Patient seen and examined.
Resting in hospital bed.
Ostomy functioning with formed stool in appliance.
Wound VAC changed yesterday
AFVSS
NAD AAOx3
ABD: Soft, mild tenderness, wound VAC in place and holding suction.
Left-sided ostomy appliance with formed stool.
A/P: Appreciate hospitalist assistance with care and managing ongoing medical comorbidities
Regular diet as tolerated
Stool softener
Local wound care
[2024-06-25 11:46] LABS: Glucose - Point of Care 330 mg/dl (70-99)
[2024-06-25] MEDS: ZOSYN IV ×2 (13:04→18:45)
[2024-06-25] MEDS: MYCAMINE 105 MG IV (13:04)
[2024-06-25] MEDS: NOVOLOG FLEXPEN-MODERATE RESISTANCE 7 UNITS SC (13:05)
[2024-06-25 15:34] VITALS: BP 130/69
[2024-06-25 16:04] VITALS: BP 135/73
[2024-06-25 16:17] LABS: Glucose - Point of Care 107 mg/dl (70-99)
[2024-06-25] MEDS: NOVOLOG FLEXPEN-MODERATE RESISTANCE SC (16:19)
[2024-06-25] MEDS: COLACE 100 MG PO (20:27)
[2024-06-25 21:55] LABS: Glucose - Point of Care 314 mg/dl (70-99)
[2024-06-25] MEDS: NEURONTIN 300 MG PO (22:15)
[2024-06-25] MEDS: NORVASC PO (22:15)
[2024-06-25] MEDS: PEPCID 20 MG PO (22:16)
[2024-06-25 23:05] VITALS: BP 129/71
[2024-06-26] VITALS (8 sets, daily range): BP systolic 133–162; BP diastolic 62–76; BMI 23.4; BMI 23.9
[2024-06-26] MEDS: HEPARIN 5000 UNITS SC ×4 (00:15→23:10)
[2024-06-26] MEDS: ZOSYN 100 IV ×5 (00:15→23:10)
[2024-06-26 07:53] LABS: Glucose - Point of Care 126 mg/dl (70-99)
[2024-06-26] MEDS: NOVOLOG FLEXPEN-MODERATE RESISTANCE SC (08:02)
[2024-06-26 08:35] LABS: Hematocrit 18.8 % (37.0-47.0); Hemoglobin 6.4 g/dL (12.0-16.0); Mean Corpuscular Hgb 30.8 pg (27.0-31.0); Mean Corpuscular Volume 90.4 fL (81.0-99.0); Mean Platelet Volume 10.4 fL (7.4-10.4); Platelet Count 394 10^3/uL (130-400); Red Blood Cell Count 2.08 10^6/uL (4.20-5.40); Red Cell Dist. Width 14.1 % (11.5-14.5); White Blood Cell Count 8.9 10^3/uL (4.8-10.8)
[2024-06-26 08:37] LABS: Blood Urea Nitrogen 28 mg/dl (7-17); Calcium 7.7 mg/dl (8.4-10.2); Carbon Dioxide 28 mmol/L (22-30); Chloride 101 mmol/L (98-107); Estimated Creatinine Clearance 43 ml/min; Glucose 119 mg/dl (70-99); Potassium 3.3 mmol/L (3.5-5.1); Sodium 133 mmol/L (135-145); eGFR 51.43
[2024-06-26] MEDS: COLACE 100 MG PO ×2 (09:10→21:11)
[2024-06-26] MEDS: NEURONTIN 100 MG PO ×2 (09:10→17:43)
[2024-06-26] MEDS: LOPRESSOR 12.5 MG PO ×2 (09:10→21:11)
[2024-06-26] MEDS: ROXICODONE 5 MG PO (10:58)
--- NOTE | 2024-06-26 11:33 | W.PN.CRS1 ---
Addendum entered and electronically signed by Robi Mendosa MD 06/26/24 11:45:
Patient seen and examined.
A bit lethargic today. Nausea and no appetite. Tolerating some p.o. intake
Reports suprapubic abdominal pain
AFVSS
AAOx3, NAD
ABD: Soft, nondistended, tenderness palpation with voluntary guarding suprapubic area
Right lower quadrant surgical drain in place with purulent/murky fluid
Wound VAC with clearish fluid in canister
Left lower quadrant IR drain with serous fluid
Left-sided ostomy with pink mucosa at formed stool -softer
A/P: Transfuse for hemoglobin 6.4
Diet as tolerated
Continue current wound VAC therapy and drains. IR drain to left lower quadrant likely next to be removed.
Antibiotics per ID
Original Note:
Today's Communication / Plan
-
Wound vac
Assessment/Plan
-
79-year-old female with PMH of HTN, HLD, interstitial lung disease with bronchiectasis, history of pneumonia multiple times, history of spontaneous pneumothorax x 2 who presents 8 days after right hip replacement; 4 days prior to admission, she
started to develop abdominal pain and nausea with decreased bowel function; the abdominal pain and nausea/vomiting continue to worsen; she denies any fevers, chest pain, or urinary symptoms; she does have dyspnea due to the abdominal pain; her last
colonoscopy was 2 years ago which she reports as normal (report not available to me); in the ED, her WBC was 9.3, CR 1.5 and a CTAP was done which shows moderate free air, extraluminal stool adjacent to the mid sigmoid colon with concern of sigmoid
perforation possibly due to diverticulitis
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
- extubated and pressors weaned off by POD 1; initially oliguric, but UOP recovered; A-fib with RVR, stabilized on Amio
- 223 CT - c/f subhepatic abscess, d/w [place] and felt that it more likely represents free fluid; remainder post-op changes
- 06/13 opened enrique at inferior midline for murky drainage
- 06/15 mild fascial dehiscence noted; CT -subhepatic abscess increased, fluid along the left gutter; s/p IR drain of subhepatic abscess�20 mL pus
- 06/16 s/p IR drain of left gutter�35 mL of turbid fluid
- 06/18 complete fascial dehiscence
- 06/20 vac placed with white sponge at 75mmHg
- 06/22 vac replaced, fascial edges debrided
- 06/24 vac replaced, off TPN
- 06/26 transfused one unit of blood. anemia of chronic disease
AFVSS
Normal WBC
Stoma functioning
-Fascial dehiscence
�Continue wound VAC with xeroform over abdominal contents, then white sponge and black sponge, vac at 75 mmHg; change MWF
�Recommend OOB and ambulate twice daily with abdominal binder; appreciate PT, recommend PT, [facility] if possible to help manage the vac
� Pain control with tylenol, oxycodone, dilaudid
� A-fib with RVR, now in SR, appreciate cardiology
� Continue DVT PPx with subQ heparin
� Continue regular diet
- transfuse today, h/h slowly drifting down with no active bleeding present
- Replace elelctrolytes
- c/w PICC as anticipate long course of ABX. ID following
� Appreciate hospitalist
Subjective Data
Procedure
Exploratory laparotomy, lysis of his adhesions, sigmoidectomy, creation of end colostomy on 06/07/24
Subjective Data
Date of Service: June 26, 2024
Patient seen and examined at bedside with Dr. mendosa. Denies vomiting. Tolerating meals but with occasional nausea. Some pain around incision site.
Objective Data
-
Vital Signs
Temp Pulse Resp BP Pulse Ox
97.6 F 86 16 133/62 95
06/26/24 10:54 06/26/24 10:54 06/26/24 10:54 06/26/24 10:54 06/26/24 10:54
Intake & Output
06/25/24 06/26/24 06/27/24
05:59 06:59 06:59
Intake Total 0 / 0
Output Total
Balance 0 / 0
Intake:
Oral fluids
IV fluids (Total)
IV piggybacks
Blood Product Amount Infused ( 0 / 0
mL)
Packed Rbc Leukoreduced Unit 0 / 0
[id number]
Output:
Drain Output (Total)
Left Lower Abdomen Placed in IR
Right Back
Right Lower Abdomen Darius-
[place]
Urine, Voided
Other:
Number of approximated SMALL
amounts of urine
Number of approximated MODERATE
amounts of urine
Number of approximated LARGE 1
amounts of urine
How many times incontinent 1
MODERATE amount urine
How many times incontinent
SATURATED amount urine
Lab Results
06/26/24 08:04
06/26/24 08:05
Physical Exam
-
General: No Acute Distress
Abdomen: Soft, Non Distended and Tender (mild around midline incision)
Skin: Warm and Dry
Wound: Dressing in Place (Midline abd with wound vac in place and functioning to 75mmHg. LLQ drain with murky output)
--- NOTE | 2024-06-26 11:43 | CM ---
Patient chart reviewed
Hgb 6.4-transfuse today
abdominal wound vac
PT rec Acute rehab
referral in [facility]
PLAN: Acute Rehab when medically stable
[2024-06-26 11:47] LABS: Glucose - Point of Care 238 mg/dl (70-99)
[2024-06-26] MEDS: NOVOLOG FLEXPEN-MODERATE RESISTANCE 3 UNITS SC (13:18)
[2024-06-26] MEDS: KCL 40 MEQ PO (13:20)
[2024-06-26] MEDS: TYLENOL 650 MG PO (13:21)
[2024-06-26] MEDS: MYCAMINE 105 MG IV (13:22)
--- NOTE | 2024-06-26 14:28 | W.PN.HOSP.TC ---
Today's Communication/Plan
-
Blood transfusion per surgery
Increase the dose of amlodipine
Continue with PT/OT
Assessment / Plan
Assessment / Plan
Assessment/Plan:
-Acute sigmoid bowel perforation with acute surgical abdomen
-E. coli bacteremia due to bowel perforation, abscess
An abdominal CT showed findings suggesting perforated bowel probable at sigmoid colon with associated retroperitoneal and intraperitoneal free air, air-fluid level suggesting abscess formation and extraluminal stool.
Patient is postop from exploratory laparotomy, sigmoidectomy, and creation of end colostomy
Hydromorphone/Zofran as needed
Appreciate infectious diseases recommendations�continue Zosyn and micafungin -patient has a PICC line and we may consider home IV antibiotics if indicated
The patient has been extubated and is on room air
Off of TPN
Patient has been advanced to a regular diet and is tolerating it well
Follow-up CT of the abdomen on 06/15/2024 showed tubular shaped fluid collection along the posterior right lobe of the liver as above with thin enhancing rim, up to 7 cm diameter. Increased as compared with prior and exerts some mass effect against
the right lobe of the liver, suspicious for abscess.
Culture from abdominal abscess preliminary resulted as positive for anaerobic bacteria -
Pseudomonas aeruginosa and E. coli found IR drainage of intra-abdominal fluid.
Patient is currently has abdominal dehiscence and cannot sit up or get out of bed without an abdominal binder as per colorectal surgery recommendations. Has wound vac to abdomen.
Post op anemia - no evidence of obvious external bleeding. Transfuse per surgery
-Hypokalemia:
replete
-Acute kidney injury secondary to bowel perforation/infection/acute process:
resolved
Atrial fibrillation with rapid ventricular response:
New diagnosis found postoperatively.
[id number] of 4 due to the age being greater than 75, female, hypertension
Patient is now back in sinus rhythm after receiving Amio
started low-dose beta-norma
Echocardiogram conducted on 06/09/2024 showed aortic sclerosis without stenosis and no aortic regurgitation. Moderate tricuspid regurgitation. Mild pulmonic regurgitation. Pleural effusion present
-Essential hypertension:
BP on higher side. Will increase amlodipine to twice a day .
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
appreciate ortho recommendations
enrique removed
cw PT/OT
-Interstitial lung disease with bronchiectasis
-Past medical history of spontaneous pneumothorax
FULL CODE STATUS
DVT prophylaxis: Heparin sq
Stress ulcer prophylaxis: Famotidine
Acute rehab once medically/surgically stable appreciate [facility] technician input.
Anticipated Discharge: > 48 hours
Subjective/Interval History
-
Date of Service: June 26, 2024
Finished transfusion. Feels okay. Denies shortness of breath. Tolerating diet.
Objective Data
-
Labs:
Laboratory Results
06/26/24 06/26/24
08:04 08:05
WBC 8.9
Hgb 6.4 L*
Hct 18.8 L*
Plt Count 394 D
Sodium 133 L
Potassium 3.3 L
Chloride 101
Carbon Dioxide 28
BUN 28 H
Creatinine 1.1 H
Glucose 119 H
Calcium 7.7 L
Vital Signs:
Vital Signs
Temp Pulse Resp BP Pulse Ox
97.8 F 102 16 162/72 95
06/26/24 13:34 06/26/24 13:34 06/26/24 13:34 06/26/24 13:34 06/26/24 13:34
I&O
06/25/24 06/26/24 06/27/24
05:59 06:59 06:59
Intake Total 250 / 250
Output Total
Balance 250 / 250
Review of Systems
-
Respiratory: Denies Trouble Breathing
Cardiac: Denies Chest Pain
Abdomen/GI: Denies Nausea
Neuro: Denies Dizzy
Physical Exam
-
General: No Apparent Distress
HEENT: Moist Mucous Membranes
Respiratory: Non Labored Respirations; Negative Accessory Resp Muscle Use
Cardiac: Regular Rhythm and S1/S2
GI: Soft
Neuro: AO x 3
Data Reviewed
-
Labs: Labs Reviewed by me
[2024-06-26 16:56] LABS: Glucose - Point of Care 178 mg/dl (70-99)
[2024-06-26] MEDS: NOVOLOG FLEXPEN-MODERATE RESISTANCE 1 UNITS SC (17:44)
[2024-06-26] MEDS: NEURONTIN 300 MG PO (21:11)
[2024-06-26] MEDS: PEPCID 20 MG PO (21:11)
[2024-06-26] MEDS: NORVASC 5 MG PO (21:12)
[2024-06-26 21:41] LABS: Glucose - Point of Care 271 mg/dl (70-99)
[2024-06-27] MEDS: ROXICODONE 5 MG PO ×3 (00:33→12:58)
[2024-06-27] MEDS: ZOSYN 100 IV ×4 (05:33→23:37)
[2024-06-27 06:00] VITALS: BMI 24.6
[2024-06-27 06:46] LABS: Blood Urea Nitrogen 24 mg/dl (7-17); Carbon Dioxide 26 mmol/L (22-30); Chloride 99 mmol/L (98-107); Estimated Creatinine Clearance 47 ml/min; Glucose 114 mg/dl (70-99); Potassium 3.8 mmol/L (3.5-5.1); Sodium 133 mmol/L (135-145); eGFR 57.66
[2024-06-27 06:53] LABS: Hematocrit 24.3 % (37.0-47.0); Hemoglobin 8.6 g/dL (12.0-16.0); Mean Corp Hgb Conc. 35.4 g/dL (33.0-37.0); Mean Corpuscular Hgb 31.2 pg (27.0-31.0); Mean Platelet Volume 10.2 fL (7.4-10.4); Platelet Count 453 10^3/uL (130-400); Red Blood Cell Count 2.76 10^6/uL (4.20-5.40); White Blood Cell Count 11.2 10^3/uL (4.8-10.8)
[2024-06-27 07:22] VITALS: BP 145/77
[2024-06-27 07:25] LABS: Glucose - Point of Care 133 mg/dl (70-99)
[2024-06-27] MEDS: NOVOLOG FLEXPEN-MODERATE RESISTANCE SC (07:25)
[2024-06-27] MEDS: NEURONTIN 100 MG PO ×2 (09:40→17:45)
[2024-06-27] MEDS: LOPRESSOR 12.5 MG PO ×2 (09:40→21:01)
[2024-06-27] MEDS: NORVASC 5 MG PO ×2 (09:41→21:02)
[2024-06-27] MEDS: HEPARIN 5000 UNITS SC ×3 (09:45→23:37)
[2024-06-27] MEDS: COLACE 100 MG PO ×2 (09:45→21:01)
--- NOTE | 2024-06-27 10:55 | W.PN.CRS1 ---
Today's Communication / Plan
-
wound vac change later today
continue antibiotics
PT
trend hemoglobin
Assessment/Plan
-
79-year-old female with PMH of HTN, HLD, interstitial lung disease with bronchiectasis, history of pneumonia multiple times, history of spontaneous pneumothorax x 2 who presents 8 days after right hip replacement; 4 days prior to admission, she
started to develop abdominal pain and nausea with decreased bowel function; the abdominal pain and nausea/vomiting continue to worsen; she denies any fevers, chest pain, or urinary symptoms; she does have dyspnea due to the abdominal pain; her last
colonoscopy was 2 years ago which she reports as normal (report not available to me); in the ED, her WBC was 9.3, CR 1.5 and a CTAP was done which shows moderate free air, extraluminal stool adjacent to the mid sigmoid colon with concern of sigmoid
perforation possibly due to diverticulitis
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
- extubated and pressors weaned off by POD 1; initially oliguric, but UOP recovered; A-fib with RVR, stabilized on Amio
- 06/12 CT - c/f subhepatic abscess, d/w [place] and felt that it more likely represents free fluid; remainder post-op changes
- 06/13 opened enrique at inferior midline for murky drainage
- 06/15 mild fascial dehiscence noted; CT -subhepatic abscess increased, fluid along the left gutter; s/p IR drain of subhepatic abscess�20 mL pus
- 06/16 s/p IR drain of left gutter�35 mL of turbid fluid
- 3 complete fascial dehiscence
- 3/ vac placed with white sponge at 75mmHg
- 3 vac replaced, fascial edges debrided
- 3 vac replaced, off TPN
- 06/26 transfused one unit of blood. anemia of chronic disease
AFVSS
WBC 11.2. Hgb 8.6 (6.4)
Stoma functioning
- Fascial dehiscence
�Continue wound VAC with xeroform over abdominal contents, then white sponge and black sponge, vac at 75 mmHg; change MWF - will change vac this afternoon
� Recommend OOB and ambulate twice daily with abdominal binder; appreciate PT, recommend PT, [facility] if possible to help manage the vac
� Pain control with tylenol, oxycodone, Dilaudid
� A-fib with RVR, now in SR, appreciate cardiology
� Continue DVT PPx with subQ heparin
� Continue regular diet
- Trend H/H
- C/w PICC as anticipate long course of ABX. ID following. Will await final recs.
� Appreciate hospitalist
Subjective Data
Procedure
Exploratory laparotomy, lysis of his adhesions, sigmoidectomy, creation of end colostomy on 06/07/24
Subjective Data
Date of Service: June 27, 2024
Patient states that she has abdominal pain. She has no nausea or vomiting. She states she has been tolerating her diet.
Objective Data
-
Vital Signs
Temp Pulse Resp BP Pulse Ox
98.0 F 67 18 145/77 95
06/27/24 07:22 06/27/24 07:22 06/27/24 07:22 06/27/24 07:22 06/27/24 07:22
Intake & Output
06/26/24 06/27/24 06/28/24
06:59 06:59 06:59
Intake Total 1570 / 1570 180 / 180
Output Total 125 / 125
Balance 1445 / 1445 180 / 180
Intake:
Oral fluids 240 / 240 180 / 180
IV fluids (Total) 225 / 225
IV piggybacks 605 / 605
Blood products 250 / 250
Blood Product Amount Infused ( 250 / 250
mL)
Packed Rbc Leukoreduced Unit 250 / 250
[id number]
Output:
Liquid stool amount 120 / 120
Colostomy 120 / 120
Drain Output (Total)
Right Lower Abdomen Darius-
[place]
Other:
Number of approximated SMALL
amounts of urine
Number of approximated MODERATE
amounts of urine
Number of approximated LARGE 1
amounts of urine
How many times incontinent 1 1
MODERATE amount urine
How many times incontinent 4
SATURATED amount urine
Lab Results
06/27/24 05:41
06/27/24 05:41
Physical Exam
-
General: No Acute Distress and AOx3
Abdomen: Soft, Non Distended, Tender (around midline) and Other (wound vac in place, PRINCE serous, stoma warm and pink with flatus and liquid stool output)
Skin: Warm and Dry
[2024-06-27 11:00] VITALS: BP 149/68
--- NOTE | 2024-06-27 11:17 | W.PN.ID1 ---
Date of Service
Date of Service: June 27, 2024
Today's Communication
- may consider reimaging if further progression of leukocytosis, would follow another day
Assessment / Plan
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
E. coli bacteremia due to bowel perforation, abscess
S/p Exploratory laparotomy, lysis of adhesions, sigmoidectomy, creation of end-colostomy
Wound dehiscence
Ileus
Marked leukocytosis
LONG
Hx Recent right hip replacement
- 06/07 blood cultures both with anaerobe - bacteroides - source bowel perforation; collection
- blood culture from 06/09 now also with a sensitive E coli
- repeat blood cultures x2 06/15 no growth to date
- 06/15 abscess cultures: Pseudomonas aeruginosa, E. coli and Eggerthella lenta
Recommendations:
- may consider reimaging if further progression of leukocytosis, would follow another day
- c/w with zosyn day ; 06/07- present
- c/w micafungin day 18; 06/10-present
Follow white count and temperature curve.
Continue with supportive measures.
follow clinically
����������������������������������������������������������
Chief Complaint
-: Other (bowel perforation, secondary peritonitis)
Subjective / Review of Systems
afebrile
bp stable
no events reported overnight
small smile today
Vital Signs / Physical Exam
Vital Signs
Vital Signs
Temp Pulse Resp BP Pulse Ox
98.0 F 67 18 145/77 95
06/27/24 07:22 06/27/24 07:22 06/27/24 07:22 06/27/24 07:22 06/27/24 07:22
Physical Exam
Constitutional: No Acute Distress and Chronically Ill
Cardiovascular: Regular Rate and S1/S2; Negative Murmur or Rub
Pulmonary: Clear and Symmetric; Negative Wheezes or Rales
Gastrointestinal: Soft, Non Tender, Non Distended and Normal Bowel Sounds
Skin: Warm and Dry; Negative Rash or Jaundice
Objective Data
Lab Data
Lab Results
06/27/24 05:41
06/27/24 05:41
PT 14.6 Sec (11.4-14.6) 06/07/24 14:37
INR 1.11 06/07/24 14:37
APTT 27.5 Sec (23.4-35.0) 06/07/24 14:37
Estimated Creat Clear 47 ml/min 06/27/24 05:41
Lactic Acid 1.9 mmol/L (0.7-2.0) 06/10/24 03:33
Total Bilirubin 0.7 mg/dl (0.2-1.3) 06/21/24 06:35
AST 34 U/L (14-36) 06/21/24 06:35
ALT 32 U/L (0-35) 06/21/24 06:35
Alkaline Phosphatase 147 U/L (38-126) H 06/21/24 06:35
Most recent labs reviewed.
Micro Results:
06/16/24 15:50 Wound Culture - Final
Abdomen Escherichia coli
Gram Stain - Final
06/16/24 15:50 Anaerobic Culture - Final
Abdomen NO ANAEROBES ISOLATED
06/15/24 16:25 Body Fluid Culture - Final
Fluid Pseudomonas aeruginosa
Escherichia coli
Gram Stain - Final
06/15/24 16:25 Anaerobic Culture - Final
Abdomen Eggerthella lenta
06/14/24 12:56 Blood Culture - Final
Blood/Venous No Growth - Final Report
06/14/24 12:22 Blood Culture - Final
Blood/Venous No Growth - Final Report
06/14/24 09:05 Blood Culture - Final
Blood/Venous No Growth - Final Report
06/09/24 15:02 Blood Culture - Final
Blood/Venous Escherichia coli
Gram Stain - Final
06/07/24 10:27 Blood Culture - Final
Blood/Venous Bacteroides uniformis
Gram Stain - Final
06/07/24 10:26 Blood Culture - Final
Blood/Venous Bacteroides uniformis
Gram Stain - Final
06/09/24 12:09 Blood Culture - Final
Blood/Venous No Growth - Final Report
06/07/24 23:30 MRSA Screen - Final
Nose No Methicillin Resistant Staphylococcus aureus isolated.
06/07/24 10:27 Urine Culture - Final
Urine No Significant Growth
06/07/24 09:19 Influenza Types A & B (EVI) - Final
Nasal Swab Negative for Influenza A & B, NAAT
Negative results must be combined with clinical observations
and patient history.
Nucleic Acid Amplification test (NAAT)performed on the
[employer] platform.
Care Review
Plan reviewed with: Physician (Dr Briseno and Dr Moreno - plans for abdominal wall)
[2024-06-27 12:45] LABS: Glucose - Point of Care 203 mg/dl (70-99)
[2024-06-27] MEDS: NOVOLOG FLEXPEN-MODERATE RESISTANCE 3 UNITS SC (12:49)
[2024-06-27] MEDS: MYCAMINE 105 MG IV (12:51)
[2024-06-27 15:00] VITALS: BP 149/73
--- NOTE | 2024-06-27 15:37 | CM ---
Chart reviewed
Continues to work with PT/OT
Wound Care following
Spoke with Jabier from [facility] - updated
Plan - anticipate [facility] when medically ready
--- NOTE | 2024-06-27 15:56 | W.PN.HOSP.TC ---
Addendum entered and electronically signed by Xander St MD 06/27/24 23:55:
Attending Addendum-
I saw and evaluated the patient. I reviewed the resident�s note and agree with findings and plan as documented in the resident�s note. Sub: Complains of chronic / abd pain. Denies N/V fevers chills. Full 12 point ROS reviewed and negative except
as documented Exam: Vitals reviewed in chart GEN-NAD heart RRR lungs clear abd wound vac in place with bloody fluid, stoma appears healthy, TTP @ wound vac LE no edema
-Acute sigmoid bowel perforation with abscess
-E. coli bacteremia
exploratory laparotomy, sigmoidectomy, and creation of end colostomy-07/05
care per primary
continue Zosyn () and micafungin ()
The patient has been extubated and is on room air
Off TPN
cont wound and ostomy care
Patient has been advanced to a regular diet and is tolerating it well
wound vac replaced 06/27
WBC trending up, repeat in am, T/C reimaging if warranted
#Post op anemia
- s/p tx on 06/26
- follow CBC
#Hypokalemia:
replete prn
# Hyponatremia
-hypovolemic
-encourage po fluids
#Acute kidney injury secondary to bowel perforation/infection/acute process:
resolved
#Atrial fibrillation with rapid ventricular response:
New diagnosis found postoperatively.
[id number] of 4
Patient back in sinus rhythm after receiving Amio
cont beta-norma
Would favor start of eliquis when able
-Essential hypertension:
- cont new amlodipine twice a day .
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
appreciate ortho recommendations
WBAT pain control
[place] removed
cw PT/OT
-Interstitial lung disease with bronchiectasis
FULL CODE STATUS
DVT prophylaxis: Heparin sq
Stress ulcer prophylaxis: Famotidine
Acute rehab once medically/surgically stable appreciate paint prepper input per primary
Will continue to follow until DC
Time spent coordinating care, review of plan of care with resident, personally reviewed records in EMR, med rec, consults, notes, labs, radiology, d/w nursing and primary service � 52 mins
Original Note:
Today's Communication/Plan
-
Wound VAC changed, continue antibiotics, consider imaging tomorrow if WBC continues to uptrend
Assessment / Plan
Assessment / Plan
Assessment and plan:
Acute sigmoid bowel perforation with acute surgical abdomen
Complicated by E. coli bacteremia due to bowel perforation, hepatic abscess, wound dehiscence
-Abdominal CT upon admission on 06/07/2024 revealed bowel perforation. Patient underwent sigmoidectomy with creation of end colostomy.
-Follow-up CT of the abdomen on 06/15/2024 revealed hepatic abscess
-Cultures from abscess revealed anaerobic bacteria
-Culture from intra-abdominal fluid revealed Pseudomonas and E. coli
-PICC placed. On Zosyn day 21 started on June 07 and micafungin day 18 started on June 10
-Patient currently has abdominal dehiscence and cannot sit up or get out of bed without abdominal binder per colorectal surgery. Has wound VAC.
-Was previously on TPN. Taken off on 06/24 and advancing diet as tolerated
-Pain control with oxy and Tylenol
-Recommend ambulate twice daily with abdominal binder, recommend PT with discharged to [facility] if possible to help manage Vac
-Change vac this afternoon
-WBC up trended from 8.9-11.2. If continues to uptrend, consider further imaging per ID
Post op anemia
-No evidence of external bleeding
-Received 1 unit of blood on 06/26/2024 for hemoglobin 6.4, today 8.6
-Monitor CBC
LONG secondary to bowel perforation/infection
-Resolved
Atrial fibrillation with rapid ventricular response
-New diagnosis found postoperatively.
-[id number] of 4 due to the age being greater than 75, female, hypertension
-Not currently on anticoagulation due to recent abdominal surgery, anemia, and wound VAC
-Patient is now back in sinus rhythm after receiving Amio
-Started on metoprolol 12.5 twice daily currently stable
Essential hypertension
-Started on amlodipine 5 mg now twice daily instead of once daily per home meds
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
-[place] removed
-PT OT
-Interstitial lung disease with bronchiectasis
-Past medical history of spontaneous pneumothorax
FULL CODE STATUS
DVT prophylaxis: Heparin sq
Stress ulcer prophylaxis: Famotidine
Acute rehab once medically/surgically stable appreciate paint prepper input.
Anticipated Discharge: > 48 hours
Subjective/Interval History
-
Date of Service: June 27, 2024
Fatigued, tired of being in the hospital.
Objective Data
-
Labs:
Laboratory Results
06/27/24
05:41
WBC 11.2 H
Hgb 8.6 L D
Hct 24.3 L
Plt Count 453 H
Sodium 133 L
Potassium 3.8
Chloride 99
Carbon Dioxide 26
BUN 24 H
Creatinine 1.0
Glucose 114 H
Calcium 8.0 L
Vital Signs:
Vital Signs
Temp Pulse Resp BP Pulse Ox
97.6 F 68 18 149/68 96
06/27/24 11:00 06/27/24 11:00 06/27/24 11:00 06/27/24 11:00 06/27/24 11:00
I&O
06/26/24 06/27/24 06/28/24
06:59 06:59 06:59
Intake Total 1570 / 1570 180 / 180
Output Total 125 / 125
Balance 1445 / 1445 180 / 180
Review of Systems
-
History Source: Patient
Respiratory: Reports No Symptoms
Cardiac: Reports No Symptoms
Abdomen/GI: Reports Abdominal Pain; Denies Nausea or Vomiting
Genitourinary: Reports No Symptoms
Neuro: Reports No Symptoms
Physical Exam
-
General: Appears in Distress and Pain
HEENT: Normocephalic
Respiratory: Clear to Auscultation
Cardiac: Regular Rhythm and S1/S2
GI: Tender, Ostomy (No sign of infection around ostomy) and Other (Decreased bowel sounds)
Musculoskeletal: No Edema
Skin: Warm and Dry
Neuro: AO x 3
Psych: Calm
[2024-06-27 16:47] VITALS: BP 159/83; PULSE 73; O2SAT 96
[2024-06-27 18:00] LABS: Glucose - Point of Care 169 mg/dl (70-99)
[2024-06-27] MEDS: NOVOLOG FLEXPEN-MODERATE RESISTANCE 1 UNITS SC (18:45)
[2024-06-27] MEDS: PEPCID 20 MG PO (21:01)
[2024-06-27] MEDS: NEURONTIN 300 MG PO (21:01)
[2024-06-27 21:43] LABS: Glucose - Point of Care 186 mg/dl (70-99)
[2024-06-27 22:50] VITALS: BP 148/73
--- NOTE | 2024-06-28 02:11 | PTCARENOTE ---
Addendum entered by Radha Black RN 06/28/24 02:15:
Ostomy appliance also replaced d/t wafer covering wound vac drsg.
Original Note:
@2015- wound vac noted to have air leak - could not find source of leak. TT [facility] regarding removing wound vac and placing wet to dry drsg. No response received, will reach out to [facility] in the morning. Wound vac removed, wet to dry applied w ABD and
tape covering.
[2024-06-28 05:04] LABS: Blood Urea Nitrogen 20 mg/dl (7-17); Calcium 7.9 mg/dl (8.4-10.2); Carbon Dioxide 30 mmol/L (22-30); Chloride 101 mmol/L (98-107); Estimated Creatinine Clearance 52 ml/min; Glucose 133 mg/dl (70-99); Potassium 2.9 mmol/L (3.5-5.1); Sodium 134 mmol/L (135-145); eGFR > 60.00
[2024-06-28] MEDS: ZOSYN 100 IV ×3 (05:06→18:06)
[2024-06-28 05:10] LABS: Hematocrit 23.9 % (37.0-47.0); Hemoglobin 8.1 g/dL (12.0-16.0); Mean Corp Hgb Conc. 33.9 g/dL (33.0-37.0); Mean Corpuscular Volume 88.5 fL (81.0-99.0); Mean Platelet Volume 9.9 fL (7.4-10.4); Platelet Count 465 10^3/uL (130-400); Red Cell Dist. Width 15.1 % (11.5-14.5)
[2024-06-28 05:30] VITALS: BMI 22.6
[2024-06-28 06:19] LABS: % Basophils 0.2 % (0-2); % Eosinophils 0.1 % (0-6); % Immature Granulocytes 6.1 % (0-0.5); % Lymphocytes 11.4 % (20.5-51.1); % Monocytes 4.3 % (1.7-9.3); % Neutrophils 77.9 % (42.2-75.2); Absolute Immature Granulocytes 0.7 10^3/uL (0-0.05); Absolute Lymphocytes 1.3 10^3/uL (1.2-3.4); Absolute Monocytes 0.5 10^3/uL (0.1-0.6); Absolute Neutrophils 8.6 10^3/uL (1.4-6.5); Nucleated Red Blood Cells % 0 %
[2024-06-28 07:02] VITALS: BP 140/72
[2024-06-28] MEDS: KCL 270 MEQ IV (07:15)
[2024-06-28 08:08] LABS: Glucose - Point of Care 128 mg/dl (70-99)
[2024-06-28] MEDS: LOPRESSOR 12.5 MG PO ×2 (08:09→20:49)
[2024-06-28] MEDS: NOVOLOG FLEXPEN-MODERATE RESISTANCE SC (08:09)
[2024-06-28] MEDS: NORVASC 5 MG PO ×2 (08:09→20:45)
[2024-06-28] MEDS: COLACE 100 MG PO ×2 (08:10→20:44)
[2024-06-28] MEDS: HEPARIN 5000 UNITS SC ×2 (08:10→15:18)
[2024-06-28] MEDS: NEURONTIN 100 MG PO ×2 (08:10→16:28)
[2024-06-28] MEDS: ROXICODONE 5 MG PO ×3 (08:21→21:00)
--- NOTE | 2024-06-28 09:19 | W.PN.HOSP.TC ---
Addendum entered and electronically signed by Xander St MD 06/28/24 23:46:
Attending Addendum-
I saw and evaluated the patient. I reviewed the resident�s note and agree with findings and plan as documented in the resident�s note. Sub: Complains of chronic 8/10 abd pain. Denies N/V fevers chills. Full 12 point ROS reviewed and negative except
as documented Exam: Vitals reviewed in chart GEN-NAD heart RRR lungs clear abd wound vac in place with bloody fluid, stoma appears healthy, TTP @ wound vac right PRINCE drain in place bulb with pus, LE no edema
#Acute sigmoid bowel perforation with abscess
#E. coli bacteremia
exploratory laparotomy, sigmoidectomy, and creation of end colostomy-07/05
care per primary
continue Zosyn (22) and micafungin (19)
extubated and on room air
Off TPN
cont wound and ostomy care
cont regular diet
wound vac replaced 06/27
WBC stable, repeat in am
#Post op anemia
- s/p tx 1 unit on 06/26
- trending down
- follow CBC
#Hypokalemia:
replete
check mag
# Hyponatremia
-resolved
-encourage po fluids
#Acute kidney injury
resolved
#Atrial fibrillation with rapid ventricular response:
New diagnosis-postop
[id number] of 4
reverted back to sinus rhythm after receiving Amio
cont beta-norma
Would favor start of eliquis when ok with primary
-Essential hypertension:
- cont new amlodipine
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
appreciate ortho recommendations
WBAT, pain control
cw PT/OT
FULL CODE STATUS
DVT prophylaxis: Heparin sq
Stress ulcer prophylaxis: Famotidine
Acute rehab once medically/surgically stable per primary
Will continue to follow until DC
Time spent coordinating care, review of plan of care with resident, personally reviewed records in EMR, med rec, consults, notes, labs, radiology, d/w nursing and primary service � 51 mins
Original Note:
Today's Communication/Plan
-
Continue antibiotics per ID, wound care per surgery, replete replete K as needed
Assessment / Plan
Assessment / Plan
Assessment and plan:
Acute sigmoid bowel perforation with acute surgical abdomen
Complicated by E. coli bacteremia due to bowel perforation, hepatic abscess, wound dehiscence
-Abdominal CT upon admission on 06/07/2024 revealed bowel perforation. Patient underwent sigmoidectomy with creation of end colostomy.
-Follow-up CT of the abdomen on 06/15/2024 revealed hepatic abscess
-Cultures from abscess revealed anaerobic bacteria
-Culture from intra-abdominal fluid revealed Pseudomonas and E. coli
-PICC placed. On Zosyn day 22 started on June 07 and micafungin day 19 started on June 10
-Patient currently has abdominal dehiscence and cannot sit up or get out of bed without abdominal binder per colorectal surgery. Has wound VAC.Last changed 06/27
-Pt extubated on room air
-Off TPN on 06/24 and advancing diet as tolerated
-Pain control with oxy and Tylenol
-Recommend ambulate twice daily with abdominal binder, recommend PT with discharged to [facility] if possible to help manage Vac
-WBC stable at 11.2 -> 11.0 today. Monitor CBC and temp curve
Post op anemia
-No evidence of external bleeding
-Received 1 unit of blood on 06/26/2024 for hemoglobin 6.4 ->8.6 -> 8.1 today
-Monitor CBC
LONG secondary to bowel perforation/infection
-Resolved
Hypokalemia
-Replete
Hyponatremia
-Hypovolemic, encourage p.o. fluids
Atrial fibrillation with rapid ventricular response
-New diagnosis found postoperatively.
-[id number] of 4 due to the age being greater than 76, female, hypertension
-Not currently on anticoagulation due to recent abdominal surgery, anemia, and wound VAC
-Patient is now back in sinus rhythm
-Started on metoprolol 12.5 twice daily currently stable
Essential hypertension
-Started on amlodipine 5 mg now twice daily instead of once daily per home meds
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
-[place] removed
-PT OT
-Appreciate Ortho
-Interstitial lung disease with bronchiectasis
-Past medical history of spontaneous pneumothorax
FULL CODE STATUS
DVT prophylaxis: Heparin sq
Stress ulcer prophylaxis: Famotidine
Acute rehab once medically/surgically stable appreciate parent coach input.
Anticipated Discharge: > 48 hours
Subjective/Interval History
-
Date of Service: June 28, 2024
Objective Data
-
Labs:
Laboratory Results
06/28/24
04:31
WBC 11.0 H
Hgb 8.1 L
Hct 23.9 L
Plt Count 465 H
Sodium 134 L
Potassium 2.9 L
Chloride 101
Carbon Dioxide 30
BUN 20 H
Creatinine 0.9
Glucose 133 H
Calcium 7.9 L
Vital Signs:
Vital Signs
Temp Pulse Resp BP Pulse Ox
98.1 F 64 16 140/72 95
06/28/24 07:02 06/28/24 07:02 06/28/24 07:02 06/28/24 08:09 06/28/24 07:02
I&O
06/27/24 06/28/24 06/29/24
06:59 06:59 06:59
Intake Total 1570 / 1570 3300 / 3300
Output Total 125 / 125 24 / 24
Balance 1445 / 1445 3276 / 3276
Review of Systems
-
History Source: Patient
Constitutional: Reports No Symptoms
Respiratory: Reports No Symptoms
Cardiac: Reports No Symptoms
Abdomen/GI: Reports Abdominal Pain and Nausea (with standing)
Neuro: Reports No Symptoms
Physical Exam
-
General: Appears in Distress and Pain
HEENT: Normocephalic
Respiratory: Clear to Auscultation
Cardiac: Regular Rhythm and S1/S2
GI: Tender, Ostomy and Other (Decreased bowel sounds)
Musculoskeletal: No Edema
Skin: Warm and Dry
Neuro: AO x 3
Psych: Calm
--- NOTE | 2024-06-28 09:40 | W.PN.CRS1 ---
Today's Communication / Plan
-
wound vac changes
monitor labs
PT
Assessment/Plan
-
79-year-old female with PMH of HTN, HLD, interstitial lung disease with bronchiectasis, history of pneumonia multiple times, history of spontaneous pneumothorax x 2 who presents 8 days after right hip replacement; 4 days prior to admission, she
started to develop abdominal pain and nausea with decreased bowel function; the abdominal pain and nausea/vomiting continue to worsen; she denies any fevers, chest pain, or urinary symptoms; she does have dyspnea due to the abdominal pain; her last
colonoscopy was 2 years ago which she reports as normal (report not available to me); in the ED, her WBC was 9.3, CR 1.5 and a CTAP was done which shows moderate free air, extraluminal stool adjacent to the mid sigmoid colon with concern of sigmoid
perforation possibly due to diverticulitis
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
- extubated and pressors weaned off by POD 1; initially oliguric, but UOP recovered; A-fib with RVR, stabilized on Amio
- 06/12 CT - c/f subhepatic abscess, d/w [place] and felt that it more likely represents free fluid; remainder post-op changes
- 06/13 opened enrique at inferior midline for murky drainage
- 06/15 mild fascial dehiscence noted; CT -subhepatic abscess increased, fluid along the left gutter; s/p IR drain of subhepatic abscess�20 mL pus
- 06/16 s/p IR drain of left gutter�35 mL of turbid fluid
- 06/18 complete fascial dehiscence
- 3 vac placed with white sponge at 75mmHg
- 3 vac replaced, fascial edges debrided
- 06/24 vac replaced, off TPN
- 06/26 transfused one unit of blood. anemia of chronic disease
- 06/27 - vac replaced
- 06/28 - vac replaced
AFVSS
WBC 11.0 (11.2), Hgb 8.1 (8.7)
Stoma functioning
- Fascial dehiscence
�Continue wound VAC with xeroform over abdominal contents, then white sponge and black sponge, vac at 75 mmHg; changed again today (seal broke early AM)
� Recommend OOB and ambulate twice daily with abdominal binder; appreciate PT, recommend PT, [facility] if possible to help manage the vac
� Pain control with tylenol, oxycodone, Dilaudid
� A-fib with RVR, now in SR, appreciate cardiology
� Continue DVT PPx with subQ heparin
� Continue regular diet
- Trend H/H
- C/w PICC as anticipate long course of ABX. ID following. Will keep PICC for now.
� Appreciate hospitalist
Subjective Data
Procedure
Exploratory laparotomy, lysis of his adhesions, sigmoidectomy, creation of end colostomy on 06/07/24
Subjective Data
Date of Service: June 28, 2024
Patient states she has some abdominal pain. Otherwise, she has no complaints.
Objective Data
-
Vital Signs
Temp Pulse Resp BP Pulse Ox
98.1 F 64 16 140/72 95
06/28/24 07:02 06/28/24 07:02 06/28/24 07:02 06/28/24 08:09 06/28/24 07:02
Intake & Output
06/27/24 06/28/24 06/29/24
06:59 06:59 06:59
Intake Total 1570 / 1570 3300 / 3300
Output Total 125 / 125 24 / 24
Balance 1445 / 1445 3276 / 3276
Intake:
Oral fluids 240 / 240 3000 / 3000
IV fluids (Total) 225 / 225 100 / 100
IV piggybacks 605 / 605 200 / 200
Blood products 250 / 250
Blood Product Amount Infused ( 250 / 250
mL)
Packed Rbc Leukoreduced Unit 250 / 250
[id number]
Output:
Liquid stool amount 120 / 120
Colostomy 120 / 120
Drain Output (Total)
Left Lower Abdomen Placed in IR
Right Lower Abdomen Darius-
[place]
Other:
Number of approximated LARGE 1
amounts of urine
How many times incontinent 1 1
MODERATE amount urine
How many times incontinent 4 2
SATURATED amount urine
Lab Results
06/28/24 04:31
06/28/24 04:31
Physical Exam
-
General: No Acute Distress
Abdomen: Soft, Non Distended, Non Tender and Other (vac replaced, stoma warm and pink with output, RLQ PRINCE green/murky, RLQ drain serous)
[2024-06-28 11:49] LABS: Glucose - Point of Care 211 mg/dl (70-99)
[2024-06-28 12:19] LABS: Blood Urea Nitrogen 18 mg/dl (7-17); Calcium 7.8 mg/dl (8.4-10.2); Carbon Dioxide 27 mmol/L (22-30); Chloride 101 mmol/L (98-107); Estimated Creatinine Clearance 52 ml/min; Glucose 209 mg/dl (70-99); Potassium 3.5 mmol/L (3.5-5.1); Sodium 134 mmol/L (135-145); eGFR > 60.00
[2024-06-28] MEDS: NOVOLOG FLEXPEN-MODERATE RESISTANCE 3 UNITS SC (12:23)
[2024-06-28] MEDS: MYCAMINE 105 MG IV (13:19)
[2024-06-28 13:28] LABS: Magnesium 1.5 mg/dl (1.6-2.3)
--- NOTE | 2024-06-28 14:07 | W.PN.ID1 ---
Addendum entered and electronically signed by Jena Kat MD 06/28/24 17:01:
will need to further evaluate contrast allergy history, cancel study for tonight, it can be done tomorrow
Original Note:
Date of Service
Date of Service: June 28, 2024
Today's Communication
- productive sounding cough - CXR
- repeat CT a/p with IV and oral contrast
- c/w with zosyn day ; 06/07- present
- c/w micafungin day ; 06/10-present
Assessment / Plan
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
E. coli bacteremia due to bowel perforation, abscess
S/p Exploratory laparotomy, lysis of adhesions, sigmoidectomy, creation of end-colostomy
Wound dehiscence
Ileus
Marked leukocytosis
LONG
Hx Recent right hip replacement
- 06/07 blood cultures both with anaerobe - bacteroides - source bowel perforation; collection
- blood culture from 06/09 now also with a sensitive E coli
- repeat blood cultures x2 06/15 no growth to date
- 06/15 abscess cultures: Pseudomonas aeruginosa, E. coli and Eggerthella lenta
Recommendations:
- productive sounding cough - CXR
- repeat CT a/p with IV and oral contrast
- c/w with zosyn day 06/07- present
- c/w micafungin day ; 06/10-present
Follow white count and temperature curve.
Continue with supportive measures.
follow clinically
����������������������������������������������������������
Chief Complaint
-: Other (bowel perforation, secondary peritonitis)
Subjective / Review of Systems
afebrile
bp stable
productive sounding cough - new
no other new complaints
Vital Signs / Physical Exam
Vital Signs
Vital Signs
Temp Pulse Resp BP Pulse Ox
98.1 F 64 16 140/72 95
06/28/24 07:02 06/28/24 07:02 06/28/24 07:02 06/28/24 08:09 06/28/24 08:00
Physical Exam
Constitutional: No Acute Distress
Cardiovascular: Regular Rate and S1/S2; Negative Murmur or Rub
Pulmonary: Clear and Symmetric; Negative Wheezes or Rales
Gastrointestinal: Soft, Non Tender, Non Distended, Normal Bowel Sounds and Other (pink stoma)
Skin: Warm and Dry; Negative Rash or Jaundice
Objective Data
Lab Data
Lab Results
06/28/24 04:31
06/28/24 11:36
PT 14.6 Sec (11.4-14.6) 06/07/24 14:37
INR 1.11 06/07/24 14:37
APTT 27.5 Sec (23.4-35.0) 06/07/24 14:37
Estimated Creat Clear 52 ml/min 06/28/24 11:36
Lactic Acid 1.9 mmol/L (0.7-2.0) 06/10/24 03:33
Total Bilirubin 0.7 mg/dl (0.2-1.3) 06/21/24 06:35
AST 34 U/L (14-36) 06/21/24 06:35
ALT 32 U/L (0-35) 06/21/24 06:35
Alkaline Phosphatase 147 U/L (38-126) H 06/21/24 06:35
Most recent labs reviewed.
Micro Results:
06/16/24 15:50 Wound Culture - Final
Abdomen Escherichia coli
Gram Stain - Final
06/16/24 15:50 Anaerobic Culture - Final
Abdomen NO ANAEROBES ISOLATED
06/15/24 16:25 Body Fluid Culture - Final
Fluid Pseudomonas aeruginosa
Escherichia coli
Gram Stain - Final
06/15/24 16:25 Anaerobic Culture - Final
Abdomen Eggerthella lenta
06/14/24 12:56 Blood Culture - Final
Blood/Venous No Growth - Final Report
06/14/24 12:22 Blood Culture - Final
Blood/Venous No Growth - Final Report
06/14/24 09:05 Blood Culture - Final
Blood/Venous No Growth - Final Report
06/09/24 15:02 Blood Culture - Final
Blood/Venous Escherichia coli
Gram Stain - Final
06/07/24 10:27 Blood Culture - Final
Blood/Venous Bacteroides uniformis
Gram Stain - Final
06/07/24 10:26 Blood Culture - Final
Blood/Venous Bacteroides uniformis
Gram Stain - Final
06/09/24 12:09 Blood Culture - Final
Blood/Venous No Growth - Final Report
06/07/24 23:30 MRSA Screen - Final
Nose No Methicillin Resistant Staphylococcus aureus isolated.
06/07/24 10:27 Urine Culture - Final
Urine No Significant Growth
06/07/24 09:19 Influenza Types A & B (EVI) - Final
Nasal Swab Negative for Influenza A & B, NAAT
Negative results must be combined with clinical observations
and patient history.
Nucleic Acid Amplification test (NAAT)performed on the
[employer] platform.
Care Review
Plan reviewed with: Physician (Dr Sinclair - abd imaging )
[2024-06-28] MEDS: OMNIPAQUE 50 ML PO (15:13)
[2024-06-28] MEDS: MAGNESIUM SULFATE 102 GRAMS IV (15:18)
[2024-06-28 15:33] VITALS: BP 144/71
[2024-06-28 15:42] VITALS: BP 160/80; PULSE 74
[2024-06-28 17:30] LABS: Glucose - Point of Care 279 mg/dl (70-99)
[2024-06-28] MEDS: NOVOLOG FLEXPEN-MODERATE RESISTANCE 5 UNITS SC (18:06)
[2024-06-28] MEDS: PEPCID 20 MG PO (20:49)
[2024-06-28] MEDS: NEURONTIN 300 MG PO (20:50)
[2024-06-28 21:28] LABS: Glucose - Point of Care 219 mg/dl (70-99)
[2024-06-28 23:21] VITALS: BP 159/84
[2024-06-29] MEDS: HEPARIN 5000 UNITS SC ×4 (00:12→23:34)
[2024-06-29] MEDS: ZOSYN 100 IV ×5 (00:12→23:34)
[2024-06-29] MEDS: ROXICODONE 5 MG PO ×4 (01:00→21:30)
[2024-06-29 04:53] LABS: Hematocrit 23.7 % (37.0-47.0); Hemoglobin 8.2 g/dL (12.0-16.0); Mean Corp Hgb Conc. 34.6 g/dL (33.0-37.0); Mean Corpuscular Hgb 30.8 pg (27.0-31.0); Mean Corpuscular Volume 89.1 fL (81.0-99.0); Platelet Count 527 10^3/uL (130-400); Red Blood Cell Count 2.66 10^6/uL (4.20-5.40); Red Cell Dist. Width 15.2 % (11.5-14.5); White Blood Cell Count 11.6 10^3/uL (4.8-10.8)
[2024-06-29 05:25] LABS: Blood Urea Nitrogen 19 mg/dl (7-17); Calcium 7.8 mg/dl (8.4-10.2); Carbon Dioxide 27 mmol/L (22-30); Chloride 98 mmol/L (98-107); Estimated Creatinine Clearance 52 ml/min; Glucose 118 mg/dl (70-99); Potassium 3.2 mmol/L (3.5-5.1); Sodium 133 mmol/L (135-145); eGFR > 60.00
[2024-06-29 06:00] VITALS: BMI 22.5
[2024-06-29 07:10] VITALS: BP 148/78
[2024-06-29 08:15] LABS: Glucose - Point of Care 130 mg/dl (70-99)
[2024-06-29] MEDS: NEURONTIN 100 MG PO ×2 (08:59→17:14)
[2024-06-29] MEDS: NORVASC 5 MG PO ×2 (08:59→21:27)
[2024-06-29] MEDS: COLACE 100 MG PO ×2 (08:59→21:27)
[2024-06-29] MEDS: LOPRESSOR 12.5 MG PO ×2 (09:03→21:27)
[2024-06-29] MEDS: KCL 270 MEQ IV (09:03)
[2024-06-29] MEDS: NOVOLOG FLEXPEN-MODERATE RESISTANCE SC (09:04)
[2024-06-29 10:02] VITALS: BP 149/83; BP 162/80; PULSE 71
[2024-06-29] MEDS: OMNIPAQUE 50 ML PO (10:09)
--- NOTE | 2024-06-29 11:13 | W.PN.ID1 ---
Date of Service
Date of Service: June 29, 2024
Today's Communication
- CT resulted with 5 rim enhancing abscesses, given that patient has already dehisced the abdominal wall and size of collections, washout might be considered
- c/w with zosyn day 23; 06/07- present
- c/w micafungin day 20; 06/10-present
Assessment / Plan
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
E. coli bacteremia due to bowel perforation, abscess
S/p Exploratory laparotomy, lysis of adhesions, sigmoidectomy, creation of end-colostomy
Wound dehiscence
Ileus
Marked leukocytosis
LONG
Hx Recent right hip replacement
- 06/07 blood cultures both with anaerobe - bacteroides - source bowel perforation; collection
- blood culture from 06/09 now also with a sensitive E coli
- repeat blood cultures x2 06/15 no growth to date
- 06/15 abscess cultures: Pseudomonas aeruginosa, E. coli and Eggerthella lenta
Recommendations:
- CT resulted with 5 rim enhancing abscesses, given that patient has already dehisced the abdominal wall and size of collections, washout might be considered
- c/w with zosyn day 23; 06/07- present
- c/w micafungin day 20; 06/10-present
Follow white count and temperature curve.
Continue with supportive measures.
follow clinically
����������������������������������������������������������
Chief Complaint
-: Other (bowel perforation, secondary peritonitis)
Subjective / Review of Systems
afebrile
bp stable
Vital Signs / Physical Exam
Vital Signs
Vital Signs
Temp Pulse Resp BP Pulse Ox
97.9 F 70 16 153/73 95
06/29/24 07:10 06/29/24 09:03 06/29/24 07:10 06/29/24 09:03 06/29/24 07:10
Physical Exam
Constitutional: No Acute Distress
Cardiovascular: Regular Rate and S1/S2; Negative Murmur or Rub
Pulmonary: Clear and Symmetric; Negative Wheezes or Rales
Gastrointestinal: Soft, Non Tender, Non Distended, Normal Bowel Sounds and Other (stoma pink, output in the bag)
Skin: Warm and Dry; Negative Rash or Jaundice
Lines: Other (drain with feculent appearing fluid)
Objective Data
Lab Data
Lab Results
06/29/24 04:09
06/29/24 04:09
PT 14.6 Sec (11.4-14.6) 06/07/24 14:37
INR 1.11 06/07/24 14:37
APTT 27.5 Sec (23.4-35.0) 06/07/24 14:37
Estimated Creat Clear 52 ml/min 06/29/24 04:09
Lactic Acid 1.9 mmol/L (0.7-2.0) 06/10/24 03:33
Total Bilirubin 0.7 mg/dl (0.2-1.3) 06/21/24 06:35
AST 34 U/L (14-36) 06/21/24 06:35
ALT 32 U/L (0-35) 06/21/24 06:35
Alkaline Phosphatase 147 U/L (38-126) H 06/21/24 06:35
Most recent labs reviewed.
Micro Results:
06/16/24 15:50 Wound Culture - Final
Abdomen Escherichia coli
Gram Stain - Final
06/16/24 15:50 Anaerobic Culture - Final
Abdomen NO ANAEROBES ISOLATED
06/15/24 16:25 Body Fluid Culture - Final
Fluid Pseudomonas aeruginosa
Escherichia coli
Gram Stain - Final
06/15/24 16:25 Anaerobic Culture - Final
Abdomen Eggerthella lenta
06/14/24 12:56 Blood Culture - Final
Blood/Venous No Growth - Final Report
06/14/24 12:22 Blood Culture - Final
Blood/Venous No Growth - Final Report
06/14/24 09:05 Blood Culture - Final
Blood/Venous No Growth - Final Report
06/09/24 15:02 Blood Culture - Final
Blood/Venous Escherichia coli
Gram Stain - Final
06/07/24 10:27 Blood Culture - Final
Blood/Venous Bacteroides uniformis
Gram Stain - Final
06/07/24 10:26 Blood Culture - Final
Blood/Venous Bacteroides uniformis
Gram Stain - Final
06/09/24 12:09 Blood Culture - Final
Blood/Venous No Growth - Final Report
06/07/24 23:30 MRSA Screen - Final
Nose No Methicillin Resistant Staphylococcus aureus isolated.
06/07/24 10:27 Urine Culture - Final
Urine No Significant Growth
06/07/24 09:19 Influenza Types A & B (EVI) - Final
Nasal Swab Negative for Influenza A & B, NAAT
Negative results must be combined with clinical observations
and patient history.
Nucleic Acid Amplification test (NAAT)performed on the
[employer] platform.
[2024-06-29] MEDS: SOLU-CORTEF 200 MG IV (11:14)
[2024-06-29] MEDS: BENADRYL 50 MG IV (11:14)
--- NOTE | 2024-06-29 12:01 | CM ---
Chart reviewed
Continues to work with PT/OT - acute rehab
Wound Care following
ID following
Plan - [facility] when medically ready
[2024-06-29 12:09] LABS: Magnesium 1.7 mg/dl (1.6-2.3); Phosphorus 2.9 mg/dl (2.5-4.5)
[2024-06-29 13:41] LABS: Glucose - Point of Care 244 mg/dl (70-99)
[2024-06-29] MEDS: NOVOLOG FLEXPEN-MODERATE RESISTANCE 3 UNITS SC (14:22)
[2024-06-29] MEDS: MYCAMINE 105 MG IV (14:23)
--- NOTE | 2024-06-29 14:44 | W.PN.HOSP.TC ---
Addendum entered and electronically signed by Xander St MD 06/30/24 00:06:
Attending Addendum-
I saw and evaluated the patient. I reviewed the resident�s note and agree with findings and plan as documented in the resident�s note. Sub: Complains of chronic 8/10 abd pain. Denies N/V fevers chills. Full 12 point ROS reviewed and negative except
as documented Exam: Vitals reviewed in chart GEN-NAD heart RRR lungs clear abd wound vac in place with bloody fluid, stoma appears healthy, TTP @ wound vac, right PRINCE drain in place bulb with pus, LE no edema
#Acute sigmoid bowel perforation with abscess
#E. coli bacteremia
exploratory laparotomy, sigmoidectomy, and creation of end colostomy-07/05
care per primary
continue Zosyn (23) and micafungin (20)
Off TPN
cont wound and ostomy care
cont regular diet
wound vac replaced 06/27
WBC increased,
check CT A/P
#Post op anemia
- s/p tx 1 unit on 06/26
- stable
- follow CBC
#Hypokalemia:
replete
check mag
# Hypomag
replete
recheck
# Hyponatremia
-resolved
-encourage po fluids
#Acute kidney injury
resolved
#Atrial fibrillation with rapid ventricular response:
New diagnosis-postop
[id number] of 4
reverted back to sinus rhythm after receiving Amio
cont beta-norma
Would favor start of eliquis when ok with primary
#Essential hypertension:
- cont new amlodipine
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
appreciate ortho recommendations
WBAT, pain control
cw PT/OT
FULL CODE STATUS
DVT prophylaxis: Heparin sq
Stress ulcer prophylaxis: Famotidine
Acute rehab once medically/surgically stable per primary
Will continue to follow until DC
Time spent coordinating care, review of plan of care with resident, personally reviewed records in EMR, med rec, consults, notes, labs, radiology, d/w nursing and primary service � 53 mins
Original Note:
Today's Communication/Plan
-
repeat ab/pelvic CT
Continue antibiotics
Assessment / Plan
Assessment / Plan
Assessment and plan:
Acute sigmoid bowel perforation with acute surgical abdomen
Complicated by E. coli bacteremia due to bowel perforation, hepatic abscess, wound dehiscence
-Abdominal CT upon admission on 06/07/2024 revealed bowel perforation. Patient underwent sigmoidectomy with creation of end colostomy.
-Follow-up CT of the abdomen on 06/15/2024 revealed hepatic abscess
-Cultures from abscess revealed anaerobic bacteria
-Culture from intra-abdominal fluid revealed Pseudomonas and E. coli
-PICC placed. On Zosyn day 22 started on June 07 and micafungin day 19 started on June 10
-Patient currently has abdominal dehiscence and cannot sit up or get out of bed without abdominal binder per colorectal surgery. Has wound VAC.Last changed 06/27
-Pt extubated on room air
-Off TPN on 06/24 and advancing diet as tolerated
-Pain control with oxy and Tylenol
-Recommend ambulate twice daily with abdominal binder, recommend PT with discharged to [facility] if possible to help manage Vac
-WBC stable around 11. Today 11.6. Monitor CBC and temp curve
-ID recommending further imaging with chest x-ray and ab/pelvic CT
-Chest x-ray revealed likely atelectasis
-CT pending
Post op anemia
-No evidence of external bleeding
-Received 1 unit of blood on 06/26/2024
- hemoglobin 8.2 today
-Monitor CBC
LONG secondary to bowel perforation/infection
-Resolved
Hypokalemia
-Replete
Hypomagnesemia
-Replete as needed
Hyponatremia
-Hypovolemic, encourage p.o. fluids
Atrial fibrillation with rapid ventricular response
-New diagnosis found postoperatively.
-[id number] of 4 due to the age being greater than 76, female, hypertension
-Not currently on anticoagulation due to recent abdominal surgery, anemia, and wound VAC
-Patient is now back in sinus rhythm
-Started on metoprolol 12.5 twice daily currently stable
Essential hypertension
-Started on amlodipine 5 mg now twice daily instead of once daily per home meds
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
-[place] removed
-PT OT
-Appreciate Ortho
-Interstitial lung disease with bronchiectasis
-Past medical history of spontaneous pneumothorax
FULL CODE STATUS
DVT prophylaxis: Heparin sq
Stress ulcer prophylaxis: Famotidine
Acute rehab once medically/surgically stable appreciate metaphysician input.
Anticipated Discharge: > 48 hours
Subjective/Interval History
-
Date of Service: June 29, 2024
Objective Data
-
Labs:
Laboratory Results
06/29/24
04:09
WBC 11.6 H
Hgb 8.2 L
Hct 23.7 L
Plt Count 527 H
Sodium 133 L
Potassium 3.2 L
Chloride 98
Carbon Dioxide 27
BUN 19 H
Creatinine 0.9
Glucose 118 H
Calcium 7.8 L
Vital Signs:
Vital Signs
Temp Pulse Resp BP Pulse Ox
97.9 F 70 16 153/73 95
06/29/24 07:10 06/29/24 09:03 06/29/24 07:10 06/29/24 09:03 06/29/24 07:10
I&O
06/28/24 06/29/24 06/30/24
06:59 06:59 06:59
Intake Total 3300 / 3300 885 / 885 960 / 960
Output Total 24 / 24 200 / 200
Balance 3276 / 3276 685 / 685 960 / 960
Review of Systems
-
History Source: Patient
Respiratory: Reports No Symptoms
Cardiac: Reports No Symptoms
Abdomen/GI: Reports Abdominal Pain; Denies Nausea or Vomiting
Neuro: Reports No Symptoms
Physical Exam
-
General: Pain
HEENT: Normocephalic
Respiratory: Clear to Auscultation
Cardiac: Regular Rhythm and S1/S2
GI: Tender and Distended
Musculoskeletal: No Edema
Skin: Warm and Dry
Neuro: AO x 3
Psych: Calm
[2024-06-29 15:15] VITALS: BP 138/78
[2024-06-29 16:43] VITALS: BP 159/90; BP 187/94; PULSE 73; O2SAT 96
[2024-06-29 17:43] LABS: Glucose - Point of Care 322 mg/dl (70-99)
[2024-06-29] MEDS: NOVOLOG FLEXPEN-MODERATE RESISTANCE 7 UNITS SC (18:06)
[2024-06-29] MEDS: PEPCID 20 MG PO (21:27)
[2024-06-29] MEDS: NEURONTIN 300 MG PO (21:27)
[2024-06-29 21:31] LABS: Glucose - Point of Care 171 mg/dl (70-99)
[2024-06-29 23:00] VITALS: BP 161/81
[2024-06-30] MEDS: NSS 1000 IV ×2 (00:13→15:26)
[2024-06-30 05:17] VITALS: BMI 22.6
[2024-06-30] MEDS: ZOSYN 100 IV ×3 (05:39→18:14)
[2024-06-30] MEDS: ROXICODONE 5 MG PO ×2 (05:44→20:33)
[2024-06-30 07:42] LABS: Glucose - Point of Care 148 mg/dl (70-99)
[2024-06-30 07:47] VITALS: BP 143/81
[2024-06-30] MEDS: NOVOLOG FLEXPEN-MODERATE RESISTANCE SC ×2 (08:10→16:39)
[2024-06-30] MEDS: NEURONTIN 100 MG PO ×2 (08:27→16:59)
[2024-06-30] MEDS: HEPARIN 5000 UNITS SC ×2 (08:28→16:58)
[2024-06-30] MEDS: COLACE 100 MG PO ×2 (08:28→20:32)
[2024-06-30] MEDS: LOPRESSOR 12.5 MG PO ×2 (08:28→20:33)
[2024-06-30] MEDS: NORVASC 5 MG PO ×2 (08:28→20:32)
--- NOTE | 2024-06-30 08:59 | W.PN.HOSP.TC ---
Addendum entered and electronically signed by Xander St MD 06/30/24 23:12:
Attending Addendum-
I saw and evaluated the patient. I reviewed the resident�s note and agree with findings and plan as documented in the resident�s note. Sub: Continues to complain of chronic 8/[address] about [address] scan finding. Denies N/V fevers chills. Full
12 point ROS reviewed and negative except as documented Exam: Vitals reviewed in chart GEN-NAD heart RRR lungs clear abd wound vac in place with bloody fluid, stoma appears healthy, TTP @ wound vac, right PRINCE drain in place bulb with pus, LE no edema
#Acute sigmoid bowel perforation with abscess
#E. coli bacteremia
exploratory laparotomy, sigmoidectomy, and creation of end colostomy-07/05
care per primary
continue Zosyn and micafungin->08/10
cont wound and ostomy care
cont regular diet
wound vac replaced 06/[address] A/P 06/29-There are evolving intra-abdominal collections which demonstrate new peripheral rim enhancement along the anterior right hepatic lobe, posterior right hepatic lobe, along the superior aspect of the spleen, left paracolic gutter and
right mid abdomen as detailed above. The collection along the posterior aspect of the right hepatic lobe appears decreased from prior while the additional collections appear slightly increased from prior.
c/s IR to replace and reposition of tubes
hopefully will be able to avoid repeat OR- high risk
#Post op anemia
- s/p tx 1 unit on 06/26
- stable
- follow CBC
#Hypokalemia:
replete
check mag
# Hypomagnesemia
resolved
# Hyponatremia
-resolved
-encourage po fluids
#Acute kidney injury
resolved
#Atrial fibrillation
New diagnosis-postop
[id number] of 4
reverted back to sinus rhythm after receiving Amio
cont beta-norma
Would favor start of eliquis when stable
#Essential hypertension:
- cont new amlodipine
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
appreciate ortho recommendations
WBAT, pain control
cw PT/OT
FULL CODE STATUS
DVT prophylaxis: Heparin sq
Stress ulcer prophylaxis: Famotidine
Acute rehab once medically/surgically stable per primary
Will continue to follow until DC
Time spent coordinating care, review of plan of care with resident, personally reviewed records in EMR, med rec, consults, notes, labs, radiology, d/w nursing and primary service � 51 mins
Original Note:
Today's Communication/Plan
-
IR adjusted L sided drain and aspirated ant. R hepatic collection
Continue antibiotics through 08/10 per ID
Replete K as needed
Assessment / Plan
Assessment / Plan
Assessment and plan:
Acute sigmoid bowel perforation with acute surgical abdomen
Complicated by E. coli bacteremia due to bowel perforation, hepatic abscess, wound dehiscence
-Pt extubated on room air off TPN on 06/24 and advancing diet as tolerated
-Pain control with oxy and Tylenol
-Recommend ambulate twice daily with abdominal binder, recommend PT with discharged to [facility] if possible to help manage Vac
-repeat CT 06/29 reveals new formed abscess
-WBC uptrending
-Cont with zosyn and micafungin through 08/10
-06/30 wbc 12.2, IR - adjusted L-sided drain, aspirated anterior right hepatic collection, perisplenic was not safely accessible
-Further management per colorectal
Post op anemia
-No evidence of external bleeding
-Received 1 unit of blood on 06/26/2024
- hemoglobin 8.2 today
-Monitor CBC
LONG secondary to bowel perforation/infection
-Resolved
Hypokalemia
-Replete
Hypomagnesemia
-Replete as needed
Hyponatremia
-Hypovolemic, encourage p.o. fluids
Atrial fibrillation with rapid ventricular response
-New diagnosis found postoperatively.
-[id number] of 4 due to the age being greater than 76, female, hypertension
-Not currently on anticoagulation due to recent abdominal surgery, anemia, and wound VAC
-Patient is now back in sinus rhythm
-Started on metoprolol 12.5 twice daily currently stable
Essential hypertension
-Started on amlodipine 5 mg now twice daily instead of once daily per home meds
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
-[place] removed
-PT OT
-Appreciate Ortho
-Interstitial lung disease with bronchiectasis
-Past medical history of spontaneous pneumothorax
FULL CODE STATUS
DVT prophylaxis: Heparin sq
Stress ulcer prophylaxis: Famotidine
Acute rehab once medically/surgically stable appreciate manager pet input.
Anticipated Discharge: > 48 hours
Subjective/Interval History
-
Date of Service: June 30, 2024
Objective Data
-
Labs:
Laboratory Results
06/30/24
08:21
WBC Pending
Hgb Pending
Hct Pending
Plt Count Pending
Sodium Pending
Potassium Pending
Chloride Pending
Carbon Dioxide Pending
BUN Pending
Creatinine Pending
Glucose Pending
Calcium Pending
Total Bilirubin Pending
AST Pending
ALT Pending
Alkaline Phosphatase Pending
Vital Signs:
Vital Signs
Temp Pulse Resp BP Pulse Ox
97.6 F 74 16 143/81 96
06/30/24 07:47 06/30/24 07:47 06/30/24 07:47 06/30/24 08:28 06/30/24 07:47
I&O
06/29/24 06/30/24 07/01/24
06:59 06:59 06:59
Intake Total 885 / 885 1680 / 1680
Output Total 200 / 200 220 / 220
Balance 685 / 685 1460 / 1460
Review of Systems
-
History Source: Patient
Respiratory: Reports No Symptoms
Cardiac: Reports No Symptoms
Abdomen/GI: Reports Abdominal Pain; Denies Nausea or Vomiting
Genitourinary: Reports No Symptoms
Neuro: Reports No Symptoms
Physical Exam
-
General: Appears Chronically Ill
HEENT: Normocephalic
Respiratory: Clear to Auscultation
Cardiac: Regular Rhythm and S1/S2
GI: Soft, Normal Bowel Sounds and Tender
Skin: Warm and Dry
Neuro: AO x 3
Psych: Calm
[2024-06-30 09:13] LABS: Hematocrit 23.7 % (37.0-47.0); Hemoglobin 8.2 g/dL (12.0-16.0); Mean Corp Hgb Conc. 34.6 g/dL (33.0-37.0); Mean Corpuscular Hgb 30.4 pg (27.0-31.0); Mean Corpuscular Volume 87.8 fL (81.0-99.0); Mean Platelet Volume 9.9 fL (7.4-10.4); Platelet Count 584 10^3/uL (130-400); Red Cell Dist. Width 14.8 % (11.5-14.5); White Blood Cell Count 12.2 10^3/uL (4.8-10.8)
--- NOTE | 2024-06-30 09:56 | W.PN.ID1 ---
Date of Service
Date of Service: June 30, 2024
Today's Communication
- c/w with zosyn - will tentatively plan another 6 weeks of therapy through 08/10
- c/w micafungin - will tentatively plan another 6 weeks of therapy through 08/10
Assessment / Plan
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
E. coli bacteremia due to bowel perforation, abscess
S/p Exploratory laparotomy, lysis of adhesions, sigmoidectomy, creation of end-colostomy
Wound dehiscence
Ileus
Marked leukocytosis
LONG
Hx Recent right hip replacement
- 06/07 blood cultures both with anaerobe - bacteroides - source bowel perforation; collection
- blood culture from 06/09 now also with a sensitive E coli
- repeat blood cultures x2 06/15 no growth to date
- 06/15 abscess cultures: Pseudomonas aeruginosa, E. coli and Eggerthella lenta
Recommendations:
- discussed with colorectal surgery - IR will reevaluate and will continue with medical management.
- c/w with zosyn - will tentatively plan another 6 weeks of therapy through 08/10
- c/w micafungin - will tentatively plan another 6 weeks of therapy through 08/10
Follow white count and temperature curve.
Continue with supportive measures.
follow clinically
����������������������������������������������������������
Chief Complaint
-: Other (bowel perforation, secondary peritonitis)
Subjective / Review of Systems
afebrile
bp stable
tolerating current therapies
reevaluated by IR today
Vital Signs / Physical Exam
Vital Signs
Vital Signs
Temp Pulse Resp BP Pulse Ox
97.6 F 74 16 143/81 96
06/30/24 07:47 06/30/24 07:47 06/30/24 07:47 06/30/24 08:28 06/30/24 07:47
Physical Exam
Constitutional: No Acute Distress and Chronically Ill
Cardiovascular: Regular Rate and S1/S2; Negative Murmur or Rub
Pulmonary: Clear and Symmetric; Negative Wheezes or Rales
Gastrointestinal: Soft, Non Tender, Non Distended and Normal Bowel Sounds
Skin: Warm and Dry; Negative Rash or Jaundice
Objective Data
Lab Data
Lab Results
06/30/24 08:21
PT 14.6 Sec (11.4-14.6) 06/07/24 14:37
INR 1.11 06/07/24 14:37
APTT 27.5 Sec (23.4-35.0) 06/07/24 14:37
Estimated Creat Clear 52 ml/min 06/29/24 04:09
Lactic Acid 1.9 mmol/L (0.7-2.0) 06/10/24 03:33
Total Bilirubin 0.7 mg/dl (0.2-1.3) 06/21/24 06:35
AST 34 U/L (14-36) 06/21/24 06:35
ALT 32 U/L (0-35) 06/21/24 06:35
Alkaline Phosphatase 147 U/L (38-126) H 06/21/24 06:35
Most recent labs reviewed.
Micro Results:
06/16/24 15:50 Wound Culture - Final
Abdomen Escherichia coli
Gram Stain - Final
06/16/24 15:50 Anaerobic Culture - Final
Abdomen NO ANAEROBES ISOLATED
06/15/24 16:25 Body Fluid Culture - Final
Fluid Pseudomonas aeruginosa
Escherichia coli
Gram Stain - Final
06/15/24 16:25 Anaerobic Culture - Final
Abdomen Eggerthella lenta
06/14/24 12:56 Blood Culture - Final
Blood/Venous No Growth - Final Report
06/14/24 12:22 Blood Culture - Final
Blood/Venous No Growth - Final Report
06/14/24 09:05 Blood Culture - Final
Blood/Venous No Growth - Final Report
06/09/24 15:02 Blood Culture - Final
Blood/Venous Escherichia coli
Gram Stain - Final
06/07/24 10:27 Blood Culture - Final
Blood/Venous Bacteroides uniformis
Gram Stain - Final
06/07/24 10:26 Blood Culture - Final
Blood/Venous Bacteroides uniformis
Gram Stain - Final
06/09/24 12:09 Blood Culture - Final
Blood/Venous No Growth - Final Report
06/07/24 23:30 MRSA Screen - Final
Nose No Methicillin Resistant Staphylococcus aureus isolated.
06/07/24 10:27 Urine Culture - Final
Urine No Significant Growth
06/07/24 09:19 Influenza Types A & B (EVI) - Final
Nasal Swab Negative for Influenza A & B, NAAT
Negative results must be combined with clinical observations
and patient history.
Nucleic Acid Amplification test (NAAT)performed on the
[employer] platform.
[2024-06-30 10:11] LABS: ALT (SGPT) 34 U/L (0-35); AST (SGOT) 43 U/L (14-36); Albumin 2.5 g/dl (3.5-5.0); Alkaline Phosphatase 164 U/L (38-126); Blood Urea Nitrogen 18 mg/dl (7-17); Carbon Dioxide 29 mmol/L (22-30); Chloride 100 mmol/L (98-107); Estimated Creatinine Clearance 58 ml/min; Glucose 128 mg/dl (70-99); Magnesium 1.6 mg/dl (1.6-2.3); Potassium 2.7 mmol/L (3.5-5.1); Sodium 135 mmol/L (135-145); Total Bilirubin 0.6 mg/dl (0.2-1.3); Total Protein 5.6 g/dl (6.3-8.2); eGFR > 60.00
[2024-06-30 10:23] LABS: % Basophils 0.3 % (0-2); % Eosinophils 0.2 % (0-6); % Immature Granulocytes 7.1 % (0-0.5); % Lymphocytes 10.5 % (20.5-51.1); % Monocytes 4.8 % (1.7-9.3); % Neutrophils 77.1 % (42.2-75.2); Absolute Immature Granulocytes 0.9 10^3/uL (0-0.05); Absolute Lymphocytes 1.3 10^3/uL (1.2-3.4); Absolute Monocytes 0.6 10^3/uL (0.1-0.6); Absolute Neutrophils 9.4 10^3/uL (1.4-6.5); Nucleated Red Blood Cells % 0 %
[2024-06-30] MEDS: KCL 100 IV (11:14)
[2024-06-30 12:29] LABS: Glucose - Point of Care 243 mg/dl (70-99)
[2024-06-30] MEDS: NOVOLOG FLEXPEN-MODERATE RESISTANCE 3 UNITS SC (12:52)
[2024-06-30 13:45] VITALS: BP 145/74; BP_SYST 69
[2024-06-30 14:38] VITALS: BP 147/73
--- NOTE | 2024-06-30 14:58 | W.PN.CRS1 ---
Today's Communication / Plan
-
as below
Assessment/Plan
-
79-year-old female with PMH of HTN, HLD, interstitial lung disease with bronchiectasis, history of pneumonia multiple times, history of spontaneous pneumothorax x 2 who presents 8 days after right hip replacement; 4 days prior to admission, she
started to develop abdominal pain and nausea with decreased bowel function; the abdominal pain and nausea/vomiting continue to worsen; she denies any fevers, chest pain, or urinary symptoms; she does have dyspnea due to the abdominal pain; her last
colonoscopy was 2 years ago which she reports as normal (report not available to me); in the ED, her WBC was 9.3, CR 1.5 and a CTAP was done which shows moderate free air, extraluminal stool adjacent to the mid sigmoid colon with concern of sigmoid
perforation possibly due to diverticulitis
06/07 (POD 16) ex lap, sigmoidectomy with end colostomy creation for perforated stercoral colitis; extensive washout ~9L for feculent peritonitis
- extubated and pressors weaned off by POD 1; initially oliguric, but UOP recovered; A-fib with RVR, stabilized on Amio
- 06/12 CT - c/f subhepatic abscess, d/w [place] and felt that it more likely represents free fluid; remainder post-op changes
- 06/13 opened enrique at inferior midline for murky drainage
- 06/15 mild fascial dehiscence noted; CT -subhepatic abscess increased, fluid along the left gutter; s/p IR drain of subhepatic abscess�20 mL pus
- 06/16 s/p IR drain of left gutter�35 mL of turbid fluid
- 06/18 complete fascial dehiscence
- 3/ vac placed with white sponge at 75mmHg
- 3/ vac replaced, fascial edges debrided
- 3 vac replaced, off TPN
- 06/27 vac replaced
- 06/28 vac replaced due to leak; wbc 11.0
- 06/29 wbc 11.6, CT - evolving collections in anterior right hepatic lobe (8x4x1), post right hepatic lobe ([id number]), perisplenic ([id number]), left paracolic gutter ([id number]) and right mid-abdomen (1.5x2x1.5cm)
- 06/30 wbc 12.2, IR - adjusted L-sided drain, aspirated anterior right hepatic collection, perisplenic was not safely accessible
AFVSS
WBC 12.2 from 1.6, Hb 8.2 from 8.2, CR 0.8
-Intra-abdominal abscesses
-Discussed with ID and with daughter, Cherry; currently, any surgical intervention at this point would be very high risk due to density of adhesions and likelihood of bowel injury; therefore, for the time being, I would recommend exhausting all
nonoperative measures to control these collections; currently afebrile and hemodynamically stable
-S/p IR drain adjustment on the left and collection aspiration over the right hepatic lobe
� Appreciate ID, continue IV Zosyn and micafungin
-Fascial dehiscence
�Continue wound VAC with xeroform over abdominal contents, then white sponge and black sponge, vac at 75 mmHg; change tomorrow and cont MWF
�Recommend OOB and ambulate twice daily with abdominal binder; appreciate PT, recommend PT, [facility] if possible to help manage the vac
� Pain control with tylenol, oxycodone, dilaudid
� A-fib with RVR, now in SR, appreciate cardiology
� Continue DVT PPx with subQ heparin
� Continue regular diet; ok to hold TPN
� Appreciate hospitalist
Subjective Data
Procedure
Exploratory laparotomy, lysis of his adhesions, sigmoidectomy, creation of end colostomy on 06/07/24
Subjective Data
Date of Service: June 30, 2024
No issues overnight.
Tolerating a diet, denies nausea or vomiting. Having ostomy function.
Pain controlled.
Objective Data
-
Vital Signs
Temp Pulse Resp BP Pulse Ox
98.1 F 67 20 147/73 95
06/30/24 13:45 06/30/24 14:38 06/30/24 14:38 06/30/24 14:38 06/30/24 13:45
Intake & Output
06/29/24 06/30/24 07/01/24
06:59 06:59 06:59
Intake Total 885 / 885 1680 / 1680
Output Total 200 / 200 220 / 220
Balance 685 / 685 1460 / 1460
Intake:
Oral fluids 480 / 480 1680 / 1680
IV piggybacks 405 / 405
Output:
Liquid stool amount 200 / 200 200 / 200
Colostomy 200 / 200 200 / 200
Drain Output (Total)
Right Lower Abdomen Darius-
[place]
Other:
Number of approximated SMALL 1
amounts of urine
Number of approximated MODERATE 1
amounts of urine
Number of approximated LARGE 4
amounts of urine
How many times incontinent 2
SATURATED amount urine
Lab Results
06/30/24 08:21
06/30/24 08:21
Physical Exam
-
General: No Acute Distress and AOx3
HEENT: Grossly Normal
Abdomen: Soft, Non Distended, Tender (Appropriately tender near midline wound), No Guarding and No Rebound
Skin: Warm and Dry
Wound: Other (Wound VAC functioning; ostomy pink and productive of stool; RLQ PRINCE with murky/purulent output; left sided IR drain with serous output)
[2024-06-30] MEDS: MYCAMINE 105 MG IV (15:25)
[2024-06-30 15:45] VITALS: BP 143/80
[2024-06-30 16:36] LABS: Glucose - Point of Care 122 mg/dl (70-99)
[2024-06-30] MEDS: PEPCID 20 MG PO (20:32)
[2024-06-30] MEDS: NEURONTIN 300 MG PO (20:33)
[2024-06-30 21:26] LABS: Glucose - Point of Care 177 mg/dl (70-99)
[2024-06-30] MEDS: TYLENOL 650 MG PO (22:45)
[2024-06-30 23:00] VITALS: BP 163/83
[2024-07-01] MEDS: HEPARIN 5000 UNITS SC ×3 (00:45→17:15)
[2024-07-01] MEDS: NSS 1000 IV (00:45)
[2024-07-01] MEDS: ZOSYN 100 IV ×4 (00:45→17:16)
[2024-07-01] MEDS: ROXICODONE 5 MG PO ×3 (01:52→17:14)
[2024-07-01 06:00] VITALS: BMI 22.2
[2024-07-01 07:00] VITALS: BP 154/85
[2024-07-01 07:25] LABS: Glucose - Point of Care 117 mg/dl (70-99)
[2024-07-01 08:38] LABS: Hematocrit 24.9 % (37.0-47.0); Hemoglobin 8.5 g/dL (12.0-16.0); Mean Corp Hgb Conc. 34.1 g/dL (33.0-37.0); Mean Corpuscular Hgb 30.5 pg (27.0-31.0); Mean Corpuscular Volume 89.2 fL (81.0-99.0); Mean Platelet Volume 9.8 fL (7.4-10.4); Platelet Count 595 10^3/uL (130-400); Red Blood Cell Count 2.79 10^6/uL (4.20-5.40); White Blood Cell Count 15.1 10^3/uL (4.8-10.8)
--- NOTE | 2024-07-01 08:40 | W.PN.HOSP.TC ---
Addendum entered and electronically signed by Xander St MD 07/01/24 22:01:
Attending Addendum-
I saw and evaluated the patient. I reviewed the resident�s note and agree with findings and plan as documented in the resident�s note. Sub: Continues to complain of chronic 8/10 abd pain. In good spirits. shahida diet. Denies N/V fevers chills. Full 12
point ROS reviewed and negative except as documented Exam: Vitals reviewed in chart GEN-NAD heart RRR lungs clear abd wound vac in place with bloody fluid, stoma appears healthy, right and left PRINCE drain in place- bulb with pus, LE no edema
#Acute sigmoid bowel perforation with abscess
#E. coli bacteremia
exploratory laparotomy, sigmoidectomy, and creation of end colostomy-07/05
care per primary
continue Zosyn and micafungin->08/10
cont wound and ostomy care
cont regular diet
wound vac replaced 06/27 and to be replaced 07/[address]
CT A/P 06/29-There are evolving intra-abdominal collections which demonstrate new peripheral rim enhancement along the anterior right hepatic lobe, posterior right hepatic lobe, along the superior aspect of the spleen, left paracolic gutter and
right mid abdomen as detailed above. The collection along the posterior aspect of the right hepatic lobe appears decreased from prior while the additional collections appear slightly increased from prior.
IR 06/30-replaced and repositioned tubes- fluid sent for cx + for GNB
hopefully will be able to avoid repeat OR- high risk
#Post op anemia
- s/p tx 1 unit on 06/26
- stable
- follow CBC
#Hypokalemia:
replete
repeat BMP in am
# Hypomagnesemia
replete
repeat mag in am
# Hyponatremia
-resolved
-encourage po fluids
#Acute kidney injury
resolved
#Atrial fibrillation
New diagnosis-postop
[id number] of 4
reverted back to sinus rhythm after receiving Amio-DC'd
cont beta-norma
Would favor eventual start of eliquis when stable
#Essential hypertension:
- cont new amlodipine
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
appreciate ortho recommendations
WBAT, pain control
cw PT/OT
FULL CODE STATUS
DVT prophylaxis: Heparin sq
Stress ulcer prophylaxis: Famotidine
Acute rehab once medically/surgically stable per primary
Will continue to follow until DC
Time spent coordinating care, review of plan of care with resident, personally reviewed records in EMR, med rec, consults, notes, labs, radiology, d/w nursing and primary service � 52 mins
Original Note:
Today's Communication/Plan
-
Cont antibiotics
Change wound vac
Aspiration cultures pending
Assessment / Plan
Assessment / Plan
Assessment and plan:
Acute sigmoid bowel perforation with acute surgical abdomen
Complicated by E. coli bacteremia due to bowel perforation, hepatic abscess, wound dehiscence
-Pt extubated on room air off TPN on 06/24 and advancing diet as tolerated
-Pain control with oxy and Tylenol
-Recommend ambulate twice daily with abdominal binder, recommend PT with discharged to [facility] if possible to help manage Vac
-repeat CT 06/29 reveals new formed abscess
-Cont with zosyn and micafungin through 08/10
-06/30 wbc 12.2, IR - adjusted L-sided drain, aspirated anterior right hepatic collection, perisplenic was not safely accessible
-Further management per colorectal - no OR due to risk at this time
-WBC uptrending today 15.1
-Aspiration cultures pending
Post op anemia
-No evidence of external bleeding
-Received 1 unit of blood on 06/26/2024
-currently stable
-Monitor CBC
LONG secondary to bowel perforation/infection
-Resolved
Hypokalemia
-Replete
Hypomagnesemia
-Replete as needed
Hyponatremia
-Hypovolemic, encourage p.o. fluids
Atrial fibrillation with rapid ventricular response
-New diagnosis found postoperatively.
-[id number] of 4 due to the age being greater than 75, female, hypertension
-Not currently on anticoagulation due to recent abdominal surgery, anemia, and wound VAC
-Patient is now back in sinus rhythm
-Started on metoprolol 12.5 twice daily currently stable
Essential hypertension
-Started on amlodipine 5 mg now twice daily instead of once daily per home meds
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
-[place] removed
-PT OT
-Appreciate Ortho
-Interstitial lung disease with bronchiectasis
-Past medical history of spontaneous pneumothorax
FULL CODE STATUS
DVT prophylaxis: Heparin sq
Stress ulcer prophylaxis: Famotidine
Acute rehab once medically/surgically stable appreciate resource teacher input.
Anticipated Discharge: > 48 hours
Subjective/Interval History
-
Date of Service: July 01, 2024
Appears to be getting better. More interested in watching TV, reading magazines, doing crossword puzzles. Hopeful.
Objective Data
-
Labs:
Laboratory Results
07/01/24
07:34
WBC 15.1 H
Hgb 8.5 L
Hct 24.9 L
Plt Count 595 H
Sodium Pending
Potassium Pending
Chloride Pending
Carbon Dioxide Pending
BUN Pending
Creatinine Pending
Glucose Pending
Calcium Pending
Vital Signs:
Vital Signs
Temp Pulse Resp BP Pulse Ox
97.7 F 73 16 154/85 94
07/01/24 07:00 07/01/24 07:00 07/01/24 07:00 07/01/24 07:00 07/01/24 07:00
I&O
06/30/24 07/01/24 07/02/24
06:59 06:59 06:59
Intake Total 1680 / 1680 2840 / 2840
Output Total 220 / 220 87 / 87
Balance 1460 / 1460 2753 / 2753
Review of Systems
-
History Source: Patient
Constitutional: Reports No Symptoms
EENT: Reports No Symptoms Reported
Respiratory: Reports No Symptoms
Cardiac: Reports No Symptoms
Abdomen/GI: Reports No Symptoms
Musculoskeletal: Reports No Symptoms
Neuro: Reports No Symptoms
Physical Exam
-
General: Comfortable
HEENT: Normocephalic
Respiratory: Clear to Auscultation
Cardiac: Regular Rhythm and S1/S2
GI: Tender and Other (Decreased bowel sounds)
Musculoskeletal: No Edema
Skin: Warm and Dry
Neuro: AO x 3
Psych: Calm
[2024-07-01] MEDS: LOPRESSOR 12.5 MG PO ×2 (08:58→20:07)
[2024-07-01] MEDS: NOVOLOG FLEXPEN-MODERATE RESISTANCE SC ×2 (08:58→18:17)
[2024-07-01] MEDS: COLACE 100 MG PO ×2 (08:58→20:06)
[2024-07-01] MEDS: NEURONTIN 100 MG PO ×2 (08:59→17:14)
[2024-07-01] MEDS: NORVASC 5 MG PO ×2 (08:59→20:06)
[2024-07-01 09:00] LABS: Blood Urea Nitrogen 18 mg/dl (7-17); Calcium 7.8 mg/dl (8.4-10.2); Carbon Dioxide 31 mmol/L (22-30); Chloride 99 mmol/L (98-107); Estimated Creatinine Clearance 52 ml/min; Glucose 109 mg/dl (70-99); Potassium 2.7 mmol/L (3.5-5.1); Sodium 136 mmol/L (135-145); eGFR > 60.00
[2024-07-01 09:05] LABS: Magnesium 1.4 mg/dl (1.6-2.3)
[2024-07-01 09:18] LABS: % Basophils 0.2 % (0-2); % Eosinophils 0.1 % (0-6); % Immature Granulocytes 5.5 % (0-0.5); % Lymphocytes 7.4 % (20.5-51.1); % Neutrophils 82.8 % (42.2-75.2); Absolute Immature Granulocytes 0.8 10^3/uL (0-0.05); Absolute Lymphocytes 1.1 10^3/uL (1.2-3.4); Absolute Monocytes 0.6 10^3/uL (0.1-0.6); Absolute Neutrophils 12.5 10^3/uL (1.4-6.5); Nucleated Red Blood Cells % 0 %
--- NOTE | 2024-07-01 10:00 | WOUNDNOTE ---
[facility] RN note: Changed patient's colostomy appliance while Dr. Moreno was changing patient's abdominal wound vac dressing. There is a stoma mucocutaneous separation at 9 o'clock. Covered mucocutaneous separation with piece of alginate prior to wafer
application. Richard seal and [place] wafer # [id number] and pouch # [id number] used. Ostomy supplies left in room. Vac canister was changed (500 ml of cloudy serous drainage in previous canister). Small amount of soft brown stool in removed pouch. Stoma pink
and budded. Sacrum blanchable red and intact. Skin on heels intact. Sacral shaped silicone border foam applied to sacrum. Heel elevation maintained with pillow. Will follow as needed. Colorectal surgeon service managing vac dressing changes.
--- NOTE | 2024-07-01 10:04 | W.PN.CRS1 ---
Today's Communication / Plan
-
aspiration cultures pending
wound vac changed
Assessment/Plan
-
79-year-old female with PMH of HTN, HLD, interstitial lung disease with bronchiectasis, history of pneumonia multiple times, history of spontaneous pneumothorax x 2 who presents 8 days after right hip replacement; 4 days prior to admission, she
started to develop abdominal pain and nausea with decreased bowel function; the abdominal pain and nausea/vomiting continue to worsen; she denies any fevers, chest pain, or urinary symptoms; she does have dyspnea due to the abdominal pain; her last
colonoscopy was 2 years ago which she reports as normal (report not available to me); in the ED, her WBC was 9.3, CR 1.5 and a CTAP was done which shows moderate free air, extraluminal stool adjacent to the mid sigmoid colon with concern of sigmoid
perforation possibly due to diverticulitis
06/07 (POD 16) ex lap, sigmoidectomy with end colostomy creation for perforated stercoral colitis; extensive washout ~9L for feculent peritonitis
- extubated and pressors weaned off by POD 1; initially oliguric, but UOP recovered; A-fib with RVR, stabilized on Amio
- 06/12 CT - c/f subhepatic abscess, d/w [place] and felt that it more likely represents free fluid; remainder post-op changes
- 06/13 opened enrique at inferior midline for murky drainage
- 06/15 mild fascial dehiscence noted; CT -subhepatic abscess increased, fluid along the left gutter; s/p IR drain of subhepatic abscess�20 mL pus
- 06/16 s/p IR drain of left gutter�35 mL of turbid fluid
- 3 complete fascial dehiscence
- 3/ vac placed with white sponge at 75mmHg
- 3 vac replaced, fascial edges debrided
- 3 vac replaced, off TPN
- 06/27 vac replaced
- 06/28 vac replaced due to leak; wbc 11.0
- 3/12 wbc 11.6, CT - evolving collections in anterior right hepatic lobe (8x4x1), post right hepatic lobe (5h0a0sg), perisplenic ([id number]), left paracolic gutter ([id number]) and right mid-abdomen (1.5x2x1.5cm)
- 06/30 wbc 12.2, IR - adjusted L-sided drain, aspirated anterior right hepatic collection, perisplenic was not safely accessible
AFVSS
WBC 15.3 (12.2), Hb 8.5 (8.2)
-S/p IR drain adjustment on the left and collection aspiration over the right hepatic lobe. Cultures pending.
� Appreciate ID, continue IV Zosyn and micafungin
�Continue wound VAC with xeroform over abdominal contents, then white sponge and black sponge, vac at 75 mmHg; change tomorrow and cont MWF
�Recommend OOB and ambulate twice daily with abdominal binder; appreciate PT, recommend PT, [facility] if possible to help manage the vac. Discussed with Kamala, wound RN, who reached out to the wound vac rep today. Will arrange an inservice
training for [facility].
� Pain control with tylenol, oxycodone, dilaudid
� A-fib with RVR, now in SR, appreciate cardiology
� Continue DVT PPx with subQ heparin
� Continue regular diet
� Appreciate hospitalist
Subjective Data
Procedure
Exploratory laparotomy, lysis of his adhesions, sigmoidectomy, creation of end colostomy on 06/07/24
Subjective Data
Date of Service: July 01, 2024
Patient states she feels comfortable. She is tolerating a diet. Her pain is controlled. She denies nausea or vomiting.
Objective Data
-
Vital Signs
Temp Pulse Resp BP Pulse Ox
97.7 F 73 16 154/85 94
07/01/24 07:00 07/01/24 07:00 07/01/24 07:00 07/01/24 07:00 07/01/24 07:00
Intake & Output
06/30/24 07/01/24 07/02/24
06:59 06:59 06:59
Intake Total 1680 / 1680 2840 / 2840
Output Total 220 / 220 87 / 87
Balance 1460 / 1460 2753 / 2753
Intake:
Oral fluids 1680 / 1680 480 / 480
IV fluids (Total) 1760 / 1760
IV piggybacks 600 / 600
Output:
Liquid stool amount 200 / 200 55 / 55
Colostomy 200 / 200 55 / 55
Drain Output (Total)
Left Lower Abdomen Placed in IR
Right Lower Abdomen Darius-
[place]
Other:
Number of approximated SMALL 1
amounts of urine
Number of approximated MODERATE 1
amounts of urine
Number of approximated LARGE 4 4
amounts of urine
Lab Results
07/01/24 07:34
07/01/24 07:34
Physical Exam
-
General: No Acute Distress and AOx3
Abdomen: Soft and Other (RLQ PRINCE drain with murky green output)
Wound: Other (wound vac changed, exposed bowel, fascia not intact, no granulation noted)
[2024-07-01] MEDS: KCL 270 MEQ IV (10:36)
[2024-07-01 11:20] VITALS: BP 172/88; PULSE 71; O2SAT 96
[2024-07-01] MEDS: NOVOLOG FLEXPEN-MODERATE RESISTANCE 5 UNITS SC (12:03)
[2024-07-01 12:04] LABS: Glucose - Point of Care 252 mg/dl (70-99)
[2024-07-01] MEDS: MYCAMINE 105 MG IV (12:04)
--- NOTE | 2024-07-01 13:17 | CM ---
Chart reviewed
IR yesterday
Cx pending from drain
Wound Care following
ID following
Continues to work with PT/OT - acute rehab
Plan - [facility] when medically ready
[2024-07-01 15:00] VITALS: BP 143/70
[2024-07-01 18:01] LABS: Glucose - Point of Care 134 mg/dl (70-99)
[2024-07-01 18:59] LABS: Blood Urea Nitrogen 19 mg/dl (7-17); Calcium 7.8 mg/dl (8.4-10.2); Carbon Dioxide 30 mmol/L (22-30); Chloride 99 mmol/L (98-107); Estimated Creatinine Clearance 52 ml/min; Glucose 113 mg/dl (70-99); Potassium 2.9 mmol/L (3.5-5.1); Sodium 132 mmol/L (135-145); eGFR > 60.00
[2024-07-01] MEDS: NEURONTIN 300 MG PO (21:27)
[2024-07-01] MEDS: PEPCID 20 MG PO (21:27)
[2024-07-01 22:15] LABS: Glucose - Point of Care 195 mg/dl (70-99)
[2024-07-01 23:00] VITALS: BP 163/83
[2024-07-02] MEDS: HEPARIN 5000 UNITS SC ×2 (00:22→10:28)
[2024-07-02] MEDS: ZOSYN 100 IV ×4 (00:22→17:49)
[2024-07-02 06:00] VITALS: BMI 22.2
[2024-07-02 07:00] VITALS: BP 160/83
[2024-07-02 07:52] LABS: Glucose - Point of Care 144 mg/dl (70-99)
[2024-07-02] MEDS: NOVOLOG FLEXPEN-MODERATE RESISTANCE SC ×2 (07:57→17:48)
--- NOTE | 2024-07-02 08:11 | W.PN.HOSP.TC ---
Today's Communication/Plan
-
Replete magnesium IV
Replete potassium IV and p.o.
Assessment / Plan
Assessment / Plan
Assessment and plan:
Acute sigmoid bowel perforation with acute surgical abdomen
Complicated by E. coli bacteremia due to bowel perforation, hepatic abscess, wound dehiscence
-Pt extubated on room air off TPN on 06/24 and advancing diet as tolerated
-Pain control with oxy and Tylenol
-Recommend ambulate twice daily with abdominal binder, recommend PT with discharged to [facility] if possible to help manage Vac
-repeat CT 06/29 reveals new formed abscess
-Cont with zosyn and micafungin through 08/10
-06/30 wbc 12.2, IR - adjusted L-sided drain, aspirated anterior right hepatic collection, perisplenic was not safely accessible
-Further management per colorectal - no OR due to risk at this time
-Trend fever and white count, follow-up on cultures
Profound hypokalemia
-Potassium 2.4 today
-Give potassium chloride 40 mill equivalents IV x 1, potassium chloride 40 mill equivalents p.o. 4 times daily
-Replete magnesium
-Recheck labs at 1 PM today
Hypomagnesemia
-Magnesium 1.4, replete by IV
Post op anemia
-No evidence of external bleeding
-Received 1 unit of blood on 06/26/2024
-currently stable
-Monitor CBC
LONG secondary to bowel perforation/infection
-Resolved
Hyponatremia
-Hypovolemic, encourage p.o. fluids
Atrial fibrillation with rapid ventricular response
-New diagnosis found postoperatively.
-[id number] of 4 due to the age being greater than 75, female, hypertension
-Not currently on anticoagulation due to recent abdominal surgery, anemia, and wound VAC
-Patient is now back in sinus rhythm
-Started on metoprolol 12.5 twice daily currently stable
Essential hypertension
-Started on amlodipine 5 mg now twice daily instead of once daily per home meds
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
-[place] removed
-PT OT
-Appreciate Ortho
-Interstitial lung disease with bronchiectasis
-Past medical history of spontaneous pneumothorax
DVT prophylaxis: Subcu Lovenox
Full code
Acute rehab once medically/surgically stable appreciate nailer hand input.
Total time spent to see the patient on the floor, examine the patient, review data and lab results, discuss treatment plan with patient, nursing staff around 50 minutes.
Physical Exam
General: No acute distress
HEENT: Normocephalic, Atraumatic, EOMI, MMM
Respiratory: Clear to Auscultation bilaterally
Cardiac: Normal S1/S2, Regular Rate and Rhythm
GI: Soft, distended, appropriate mild arash-incisional tenderness, wound VAC in place, drain in place
Extremities: No Clubbing, Cyanosis
Neuro: Nonfocal/Grossly Intact
Psych: Calm, Cooperative
Derm: No Visible lesions
Anticipated Discharge: > 48 hours
Subjective/Interval History
-
Date of Service: July 02, 2024
Patient reports her abdominal pain is mild. No fever, no chest pain. No shortness of breath. No vomiting.
Objective Data
-
Labs:
Laboratory Results
07/02/24
08:04
WBC Pending
Hgb Pending
Hct Pending
Plt Count Pending
Sodium Pending
Potassium Pending
Chloride Pending
Carbon Dioxide Pending
BUN Pending
Creatinine Pending
Glucose Pending
Calcium Pending
Vital Signs:
Vital Signs
Temp Pulse Resp BP Pulse Ox
98.1 F 73 18 160/83 95
07/02/24 07:00 07/02/24 07:00 07/02/24 07:00 07/02/24 07:00 07/02/24 07:00
I&O
07/01/24 07/02/24 07/03/24
06:59 06:59 06:59
Intake Total 2840 / 2840 960 / 960
Output Total /
Balance 2753 / 2753 950 / 950
[2024-07-02 08:14] LABS: % Basophils 0.3 % (0-2); % Eosinophils 0.1 % (0-6); % Lymphocytes 6.5 % (20.5-51.1); % Monocytes 3.9 % (1.7-9.3); % Neutrophils 84.2 % (42.2-75.2); Absolute Immature Granulocytes 0.8 10^3/uL (0-0.05); Absolute Monocytes 0.6 10^3/uL (0.1-0.6); Absolute Neutrophils 12.6 10^3/uL (1.4-6.5); Hematocrit 24.5 % (37.0-47.0); Hemoglobin 8.3 g/dL (12.0-16.0); Mean Corp Hgb Conc. 33.9 g/dL (33.0-37.0); Mean Corpuscular Hgb 30.1 pg (27.0-31.0); Mean Corpuscular Volume 88.8 fL (81.0-99.0); Mean Platelet Volume 9.2 fL (7.4-10.4); Nucleated Red Blood Cells % 0.1 %; Platelet Count 523 10^3/uL (130-400); Red Blood Cell Count 2.76 10^6/uL (4.20-5.40); Red Cell Dist. Width 14.9 % (11.5-14.5)
[2024-07-02 08:39] LABS: Blood Urea Nitrogen 16 mg/dl (7-17); Calcium 7.8 mg/dl (8.4-10.2); Carbon Dioxide 31 mmol/L (22-30); Chloride 97 mmol/L (98-107); Estimated Creatinine Clearance 58 ml/min; Glucose 133 mg/dl (70-99); Magnesium 1.4 mg/dl (1.6-2.3); Potassium 2.4 mmol/L (3.5-5.1); Sodium 134 mmol/L (135-145); eGFR > 60.00
[2024-07-02] MEDS: KCL ELIXIR 40 MEQ PO (10:26)
[2024-07-02] MEDS: KCL 270 MEQ IV (10:26)
[2024-07-02] MEDS: NORVASC 5 MG PO ×2 (10:27→20:04)
[2024-07-02] MEDS: LOPRESSOR 12.5 MG PO ×2 (10:27→20:04)
[2024-07-02] MEDS: COLACE 100 MG PO ×2 (10:28→20:04)
[2024-07-02] MEDS: NEURONTIN 100 MG PO ×2 (10:29→17:48)
[2024-07-02] MEDS: MAGNESIUM SULFATE 50 IV (10:29)
--- NOTE | 2024-07-02 11:36 | W.PN.CRS1 ---
Addendum entered and electronically signed by Jesse Moreno MD 07/02/24 11:45:
called Susanna and left voicemail
Original Note:
Today's Communication / Plan
-
as below
Assessment/Plan
-
79-year-old female with PMH of HTN, HLD, interstitial lung disease with bronchiectasis, history of pneumonia multiple times, history of spontaneous pneumothorax x 2 who presents 8 days after right hip replacement; 4 days prior to admission, she
started to develop abdominal pain and nausea with decreased bowel function; the abdominal pain and nausea/vomiting continue to worsen; she denies any fevers, chest pain, or urinary symptoms; she does have dyspnea due to the abdominal pain; her last
colonoscopy was 2 years ago which she reports as normal (report not available to me); in the ED, her WBC was 9.3, CR 1.5 and a CTAP was done which shows moderate free air, extraluminal stool adjacent to the mid sigmoid colon with concern of sigmoid
perforation possibly due to diverticulitis
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
- extubated and pressors weaned off by POD 1; initially oliguric, but UOP recovered; A-fib with RVR, stabilized on Amio
- 06/12 CT - c/f subhepatic abscess, d/w [place] and felt that it more likely represents free fluid; remainder post-op changes
- 06/13 opened enrique at inferior midline for murky drainage
- 06/15 mild fascial dehiscence noted; CT -subhepatic abscess increased, fluid along the left gutter; s/p IR drain of subhepatic abscess�20 mL pus
- 06/16 s/p IR drain of left gutter�35 mL of turbid fluid
- 06/18 complete fascial dehiscence
- 06/20 vac placed with white sponge at 75mmHg
- 06/29 wbc 11.6, CT - evolving collections in anterior right hepatic lobe (8x4x1), post right hepatic lobe ([id number]), perisplenic ([id number]), left paracolic gutter ([id number]) and right mid-abdomen (1.5x2x1.5cm)
- 06/30 wbc 12.2, IR - adjusted L-sided drain, aspirated anterior right hepatic collection, perisplenic was not safely accessible
- 07/01 vac replaced, wbc 15
AFVSS
WBC 15.0 from 15.3, Hb 8.3 from 8.5, Cr 0.8
-S/p fascial dehiscence; wound clean, but without much granulation; cont wound vac with vaseline gauze, white sponge, black sponge and vac to 75mmHg
-Will consult general surgery on Thursday
-Intra-abdominal infections
� Appreciate ID, continue IV Zosyn and micafungin
-RLQ drain in pelvis with purulent but low output; s/p IR aspiration/drainage of collections; will need repeat CT if leukocytosis doesn't improve, likely Thursday
�Recommend OOB and ambulate twice daily with abdominal binder
-Appreciate PT, recommend PT, [facility] if possible to help manage the vac
� Pain control with tylenol, oxycodone, dilaudid
� A-fib with RVR, now in SR, appreciate cardiology
-Ok to start therapeutic lovenox; please hold on Eliquis in case another procedure becomes necessary
� Continue regular diet
� Appreciate hospitalist
Subjective Data
Procedure
Exploratory laparotomy, lysis of his adhesions, sigmoidectomy, creation of end colostomy on 06/07/24
Subjective Data
Date of Service: July 02, 2024
No overnight events.
Pain controlled.
Denies nausea/vomiting. Tolerating diet.
+flatus + ostomy function
Pt is OOB.
Objective Data
-
Vital Signs
Temp Pulse Resp BP Pulse Ox
98.1 F 73 18 160/83 95
07/02/24 07:00 03/15/25 07:00 07/02/24 07:00 07/02/24 10:27 07/02/24 07:00
Intake & Output
07/01/24 07/02/24 07/03/24
06:59 06:59 06:59
Intake Total 2840 / 2840 960 / 960 120 / 120
Output Total 87 / 87 60 / 60
Balance 2753 / 2753 900 / 900 120 / 120
Intake:
Oral fluids 480 / 480 960 / 960 120 / 120
IV fluids (Total) 1760 / 1760
IV piggybacks 600 / 600
Output:
Liquid stool amount
Colostomy
Drain Output (Total) 32 / 32 60 / 60
Abdomen Wound Vac 50 / 50
Left Lower Abdomen Placed in IR
Right Lower Abdomen Darius-
[place]
Other:
Number of approximated LARGE 4 4 1
amounts of urine
Lab Results
07/02/24 08:04
Physical Exam
-
General: No Acute Distress and AOx3
HEENT: Grossly Normal
Abdomen: Soft, Non Distended, Non Tender, No Guarding, No Rebound and Other (VAC in place and functioning; left IR drain serous output, RLQ drain with purulent output)
Skin: Warm and Dry
Wound: No Signs of Infection and No Skin Erythema
[2024-07-02 11:48] LABS: Glucose - Point of Care 222 mg/dl (70-99)
[2024-07-02] MEDS: KCL 40 MEQ PO (12:50)
[2024-07-02] MEDS: NOVOLOG FLEXPEN-MODERATE RESISTANCE 3 UNITS SC (12:53)
[2024-07-02] MEDS: MYCAMINE 105 MG IV (12:57)
[2024-07-02 15:05] VITALS: BP 151/76
[2024-07-02 17:27] LABS: Potassium 3.9 mmol/L (3.5-5.1)
[2024-07-02 17:45] LABS: Glucose - Point of Care 84 mg/dl (70-99)
[2024-07-02] MEDS: LOVENOX 40 MG SC (17:49)
[2024-07-02] MEDS: TYLENOL 650 MG PO (20:09)
[2024-07-02] MEDS: NEURONTIN 300 MG PO (21:32)
[2024-07-02] MEDS: PEPCID 20 MG PO (21:32)
[2024-07-02 21:51] LABS: Glucose - Point of Care 283 mg/dl (70-99)
[2024-07-02 23:05] VITALS: BP 153/83
[2024-07-03] MEDS: ZOSYN 100 IV ×4 (00:10→17:13)
[2024-07-03 05:12] LABS: Hematocrit 24.8 % (37.0-47.0); Hemoglobin 8.2 g/dL (12.0-16.0); Mean Corp Hgb Conc. 33.1 g/dL (33.0-37.0); Mean Corpuscular Hgb 29.8 pg (27.0-31.0); Mean Corpuscular Volume 90.2 fL (81.0-99.0); Mean Platelet Volume 9.3 fL (7.4-10.4); Platelet Count 525 10^3/uL (130-400); Red Blood Cell Count 2.75 10^6/uL (4.20-5.40); Red Cell Dist. Width 15.4 % (11.5-14.5); White Blood Cell Count 11.8 10^3/uL (4.8-10.8)
[2024-07-03 05:36] LABS: Blood Urea Nitrogen 16 mg/dl (7-17); Carbon Dioxide 28 mmol/L (22-30); Chloride 101 mmol/L (98-107); Estimated Creatinine Clearance 67 ml/min; Glucose 131 mg/dl (70-99); Magnesium 1.9 mg/dl (1.6-2.3); Phosphorus 2.5 mg/dl (2.5-4.5); Potassium 3.5 mmol/L (3.5-5.1); Sodium 135 mmol/L (135-145); eGFR > 60.00
[2024-07-03 07:00] VITALS: BP 161/84
[2024-07-03 07:10] VITALS: BMI 22.4
[2024-07-03 08:05] LABS: Glucose - Point of Care 170 mg/dl (70-99)
[2024-07-03] MEDS: NORVASC 5 MG PO ×2 (08:17→21:15)
[2024-07-03] MEDS: NOVOLOG FLEXPEN-MODERATE RESISTANCE 1 UNITS SC ×2 (08:18→17:13)
[2024-07-03] MEDS: LOPRESSOR 12.5 MG PO ×2 (08:18→21:15)
[2024-07-03] MEDS: NEURONTIN 100 MG PO ×2 (08:18→17:12)
[2024-07-03] MEDS: COLACE 100 MG PO ×2 (08:19→21:15)
--- NOTE | 2024-07-03 08:41 | W.PN.CRS1 ---
Addendum entered and electronically signed by Jesse Moreno MD 07/03/24 18:37:
I saw and examined the patient.
The BIN PILER's note was reviewed and I agree with the note.
Comment:
Patient tolerating a diet and pain well-controlled.
AFVSS, ABD soft, nondistended, appropriately tender; VAC in place and functioning; RLQ PRINCE purulent, left IR drain serous
WBC improved to 11.8 today
�Continue regular diet
� Discussed with patient and patient's daughter Susanna that her wound is not granulating and not decreasing in size significantly in size; options include to continue wound VAC, which I suspect will require several months before it closes versus
another surgery; will discuss with Dr. Kay from general surgery regarding closure options; would consider closing the skin and leaving the hernia versus more formal closure with possible component separation
� Regarding intra-abdominal abscesses, cont prolonged IV abx; appreciate ID
Original Note:
Today's Communication / Plan
-
Wound vac, regular diet
Assessment/Plan
-
79-year-old female with PMH of HTN, HLD, interstitial lung disease with bronchiectasis, history of pneumonia multiple times, history of spontaneous pneumothorax x 2 who presents 8 days after right hip replacement; 4 days prior to admission, she
started to develop abdominal pain and nausea with decreased bowel function; the abdominal pain and nausea/vomiting continue to worsen; she denies any fevers, chest pain, or urinary symptoms; she does have dyspnea due to the abdominal pain; her last
colonoscopy was 2 years ago which she reports as normal (report not available to me); in the ED, her WBC was 9.3, CR 1.5 and a CTAP was done which shows moderate free air, extraluminal stool adjacent to the mid sigmoid colon with concern of sigmoid
perforation possibly due to diverticulitis
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
- extubated and pressors weaned off by POD 1; initially oliguric, but UOP recovered; A-fib with RVR, stabilized on Amio
- 06/12 CT - c/f subhepatic abscess, d/w [place] and felt that it more likely represents free fluid; remainder post-op changes
- 06/13 opened enrique at inferior midline for murky drainage
- 06/15 mild fascial dehiscence noted; CT -subhepatic abscess increased, fluid along the left gutter; s/p IR drain of subhepatic abscess�20 mL pus
- 06/16 s/p IR drain of left gutter�35 mL of turbid fluid
- 06/18 complete fascial dehiscence
- 06/20 vac placed with white sponge at 75mmHg
- 06/29 wbc 11.6, CT - evolving collections in anterior right hepatic lobe (8x4x1), post right hepatic lobe ([id number]), perisplenic ([id number]), left paracolic gutter ([id number]) and right mid-abdomen (1.5x2x1.5cm)
- 06/30 wbc 12.2, IR - adjusted L-sided drain, aspirated anterior right hepatic collection, perisplenic was not safely accessible
- 07/01 vac replaced, wbc 15
AFVSS
WBC 11.8 from 15.0, Hb 8.2 from 8.3, Cr 0.7. Lytes corrected
-S/p fascial dehiscence; wound clean, but without much granulation; cont wound vac with vaseline gauze, white sponge, black sponge and vac to 75mmHg
-Will consult general surgery on Thursday
-Intra-abdominal infections
� Appreciate ID, continue IV Zosyn and micafungin
-RLQ drain in pelvis with purulent but low output; s/p IR aspiration/drainage of collections; will need repeat CT if leukocytosis doesn't improve, likely Thursday
�Recommend OOB and ambulate twice daily with abdominal binder
-Appreciate PT, recommend PT, [facility] if possible to help manage the vac
� Pain control with tylenol, oxycodone, dilaudid
� A-fib with RVR, now in SR, appreciate cardiology
-Ok to start therapeutic lovenox; please hold on Eliquis in case another procedure becomes necessary
� Continue regular diet
� Appreciate hospitalist
Subjective Data
Procedure
Exploratory laparotomy, lysis of his adhesions, sigmoidectomy, creation of end colostomy on 06/07/24
Subjective Data
Date of Service: July 03, 2024
Patient seen and examined at bedside with family present. Denies n/v. Eating breakfast and has had most of tray. Minimal discomfort. Eager to get out of bed today.
Objective Data
-
Vital Signs
Temp Pulse Resp BP Pulse Ox
97.9 F 68 18 161/84 93
07/03/24 07:00 07/03/24 07:00 07/03/24 07:00 07/03/24 08:17 07/03/24 08:32
Intake & Output
07/02/24 07/03/24 07/04/24
06:59 06:59 06:59
Intake Total 960 / 960 2270 / 2270 960 / 960
Output Total 60 / 60 163 / 163 35 / 35
Balance 900 / 900 2107 / 2107 925 / 925
Intake:
Oral fluids 960 / 960 1540 / 1540 960 / 960
IV fluids (Total) 125 / 125
IV piggybacks 605 / 605
Output:
Liquid stool amount 120 / 120
Colostomy 120 / 120
Drain Output (Total) 60 / 60 43 / 43 35 / 35
Abdomen Wound Vac 50 / 50 25
Left Lower Abdomen Placed in IR
Right Lower Abdomen Darius-
[place]
Other:
Number of approximated MODERATE 2
amounts of urine
Number of approximated LARGE 4 3
amounts of urine
How many times incontinent 1
MODERATE amount urine
How many times incontinent 1 2
SATURATED amount urine
Lab Results
07/03/24 04:50
07/03/24 04:50
Physical Exam
-
General: No Acute Distress and AOx3
HEENT: Grossly Normal
Abdomen: Soft, Non Distended, Non Tender, No Guarding, No Rebound, Bowel Movement (stoma pink/viable with stool/flatus in appliance) and Other (VAC in place and functioning; left IR drain serous output, RLQ drain with purulent output)
Skin: Warm and Dry
Wound: No Skin Erythema
--- NOTE | 2024-07-03 09:03 | W.PN.HOSP.TC ---
Today's Communication/Plan
-
see bold
Assessment / Plan
Assessment / Plan
Assessment and plan:
Acute sigmoid bowel perforation with acute surgical abdomen
Complicated by E. coli bacteremia due to bowel perforation, hepatic abscess, wound dehiscence
-Pt extubated on room air off TPN on 06/24 and advancing diet as tolerated
-Pain control with oxy and Tylenol
-Recommend ambulate twice daily with abdominal binder, recommend PT with discharged to [facility] if possible to help manage Vac
-repeat CT 06/29 reveals new formed abscess
-Cont with zosyn and micafungin through 08/10
-06/30 wbc 12.2, IR - adjusted L-sided drain, aspirated anterior right hepatic collection, perisplenic was not safely accessible
-Further management per colorectal - no OR due to risk at this time
-Trend fever and white count, follow-up on cultures
Profound hypokalemia
-Repleted and resolved
Hypomagnesemia
-Repleted and resolved
Post op anemia
-No evidence of external bleeding
-Received 1 unit of blood on 06/26/2024
-currently stable
-Monitor CBC
LONG secondary to bowel perforation/infection
-Resolved
Hyponatremia
-Hypovolemic, encourage p.o. fluids
Atrial fibrillation with rapid ventricular response
-New diagnosis found postoperatively.
-[id number] of 4 due to the age being greater than 75, female, hypertension
-Not currently on anticoagulation due to recent abdominal surgery, anemia, and wound VAC
-Patient is now back in sinus rhythm
-Started on metoprolol 12.5 twice daily currently stable
Essential hypertension
-Started on amlodipine 5 mg now twice daily instead of once daily per home meds
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
-Matheus removed
-PT OT
-Appreciate Ortho
-Interstitial lung disease with bronchiectasis
-Past medical history of spontaneous pneumothorax
DVT prophylaxis: Subcu Lovenox
Full code
Acute rehab once medically/surgically stable appreciate bobbin winder input.
Total time spent to see the patient on the floor, examine the patient, review data and lab results, discuss treatment plan with patient, nursing staff around 40 minutes.
Physical Exam
General: No acute distress
HEENT: Normocephalic, Atraumatic, EOMI, MMM
Respiratory: Clear to Auscultation bilaterally
Cardiac: Normal S1/S2, Regular Rate and Rhythm
GI: Soft, distended, appropriate mild arash-incisional tenderness, wound VAC in place, drain in place, colostomy noted
Extremities: No Clubbing, Cyanosis
Bilateral lower extremity edema noted
Neuro: Nonfocal/Grossly Intact
Psych: Calm, Cooperative
Derm: No Visible lesions
Anticipated Discharge: > 48 hours
Subjective/Interval History
-
Date of Service: July 03, 2024
Patient has abdominal soreness. Denies chest pain, shortness of breath, or palpitations. She does have a cough. No fever, no vomiting.
Objective Data
-
Labs:
Laboratory Results
07/03/24
04:50
WBC 11.8 H
Hgb 8.2 L
Hct 24.8 L
Plt Count 525 H
Sodium 135
Potassium 3.5
Chloride 101
Carbon Dioxide 28
BUN 16
Creatinine 0.7
Glucose 131 H
Calcium 8.0 L
Vital Signs:
Vital Signs
Temp Pulse Resp BP Pulse Ox
97.9 F 68 18 161/84 93
07/03/24 07:00 07/03/24 07:00 07/03/24 07:00 07/03/24 08:17 07/03/24 08:32
I&O
07/02/24 07/03/24 07/04/24
06:59 06:59 06:59
Intake Total 960 / 960 2270 / 2270 960 / 960
Output Total 60 / 60 163 / 163 35 / 35
Balance 900 / 900 2107 / 2107 925 / 925
[2024-07-03] MEDS: KCL 40 MEQ PO (10:17)
[2024-07-03 12:26] LABS: Glucose - Point of Care 244 mg/dl (70-99)
[2024-07-03 12:30] VITALS: BP 167/95; PULSE 76; O2SAT 99
[2024-07-03] MEDS: NOVOLOG FLEXPEN-MODERATE RESISTANCE 3 UNITS SC (13:05)
[2024-07-03] MEDS: MYCAMINE 105 MG IV (13:07)
[2024-07-03 15:00] VITALS: BP 156/84
[2024-07-03 15:33] VITALS: BP 167/95; PULSE 76; O2SAT 99
[2024-07-03 16:48] LABS: Glucose - Point of Care 175 mg/dl (70-99)
[2024-07-03] MEDS: LOVENOX 40 MG SC (17:12)
[2024-07-03] MEDS: NEURONTIN 300 MG PO (21:15)
[2024-07-03] MEDS: PEPCID 20 MG PO (21:15)
[2024-07-03 22:41] LABS: Glucose - Point of Care 164 mg/dl (70-99)
[2024-07-03 23:00] VITALS: BP 161/92
[2024-07-04] MEDS: ZOSYN 100 IV ×4 (00:03→17:54)
[2024-07-04] MEDS: FLUSH (NSS) 1 FLUSH IV (00:04)
[2024-07-04 06:00] VITALS: BMI 22.1
[2024-07-04 07:00] VITALS: BP 154/83
[2024-07-04] MEDS: NORVASC 5 MG PO ×2 (08:46→21:37)
[2024-07-04] MEDS: NEURONTIN 100 MG PO ×2 (08:46→15:53)
[2024-07-04] MEDS: LOPRESSOR 12.5 MG PO ×2 (08:46→21:37)
[2024-07-04] MEDS: COLACE 100 MG PO ×2 (08:46→21:37)
[2024-07-04 08:47] LABS: Glucose - Point of Care 119 mg/dl (70-99)
[2024-07-04] MEDS: NOVOLOG FLEXPEN-MODERATE RESISTANCE SC (09:12)
--- NOTE | 2024-07-04 09:14 | W.PN.CRS1 ---
Today's Communication / Plan
-
as below
Assessment/Plan
-
79-year-old female with PMH of HTN, HLD, interstitial lung disease with bronchiectasis, history of pneumonia multiple times, history of spontaneous pneumothorax x 2 who presents 8 days after right hip replacement; 4 days prior to admission, she
started to develop abdominal pain and nausea with decreased bowel function; the abdominal pain and nausea/vomiting continue to worsen; she denies any fevers, chest pain, or urinary symptoms; she does have dyspnea due to the abdominal pain; her last
colonoscopy was 2 years ago which she reports as normal (report not available to me); in the ED, her WBC was 9.3, CR 1.5 and a CTAP was done which shows moderate free air, extraluminal stool adjacent to the mid sigmoid colon with concern of sigmoid
perforation possibly due to diverticulitis
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
- extubated and pressors weaned off by POD 1; initially oliguric, but UOP recovered; A-fib with RVR, stabilized on Amio
- 06/12 CT - c/f subhepatic abscess, d/w [place] and felt that it more likely represents free fluid; remainder post-op changes
- 06/13 opened enrique at inferior midline for murky drainage
- 06/15 mild fascial dehiscence noted; CT -subhepatic abscess increased, fluid along the left gutter; s/p IR drain of subhepatic abscess�20 mL pus
- 06/16 s/p IR drain of left gutter�35 mL of turbid fluid
- 3 complete fascial dehiscence
- 3 vac placed with white sponge at 75mmHg
- 06/29 wbc 11.6, CT - evolving collections in anterior right hepatic lobe (8x4x1), post right hepatic lobe ([id number]), perisplenic ([id number]), left paracolic gutter ([id number]) and right mid-abdomen (1.5x2x1.5cm)
- 06/30 wbc 12.2, IR - adjusted L-sided drain, aspirated anterior right hepatic collection, perisplenic was not safely accessible
- 07/01 vac replaced, wbc 15
AFVSS
Labs pending
-S/p fascial dehiscence; wound clean, but without much granulation; cont wound vac with vaseline gauze, white sponge, black sponge and vac to 75mmHg
-Concern that wound isn't granulating or decreasing in size significantly after 2 weeks of vac therapy; d/w Dr. Kay for recommendations on mgmt
-Intra-abdominal infections
� Appreciate ID, continue IV Zosyn and micafungin
-RLQ drain in pelvis with purulent but low output; s/p IR aspiration/drainage of collections; will follow up labs; will eventually
�Recommend OOB and ambulate twice daily with abdominal binder
-Appreciate PT, recommend PT, eventually will need rehab
� Pain control with tylenol, oxycodone, dilaudid
� A-fib with RVR, now in SR, appreciate cardiology
- Ok for therapeutic lovenox; hold off on DOAC until no further surgery planned
� Continue regular diet
� Appreciate hospitalist
Subjective Data
Procedure
Exploratory laparotomy, lysis of his adhesions, sigmoidectomy, creation of end colostomy on 06/07/24
Subjective Data
Date of Service: July 04, 2024
No overnight events.
Pain controlled.
Denies nausea/vomiting. Tolerating diet.
+flatus +BMs +voiding
Pt is OOB.
Objective Data
-
Vital Signs
Temp Pulse Resp BP Pulse Ox
98.5 F 75 16 154/83 96
07/04/24 07:00 07/04/24 08:46 07/04/24 07:00 07/04/24 08:46 07/04/24 07:00
Intake & Output
07/03/24 07/04/24 07/05/24
06:59 06:59 06:59
Intake Total 2270 / 2270 2345 / 2345 480 / 480
Output Total 163 / 163 156 / 156 300 / 300
Balance 2107 / 2107 2189 / 2189 180 / 180
Intake:
Oral fluids 1540 / 1540 2220 / 2220 480 / 480
IV fluids (Total) 125 / 125
IV piggybacks 605 / 605 100 / 100
Output:
Liquid stool amount 120 / 120 100 / 100 300 / 300
Colostomy 120 / 120 100 / 100 300 / 300
Drain Output (Total) 56 / 56
Abdomen Wound Vac
Left Lower Abdomen Placed in IR
Right Lower Abdomen Darius-
[place]
Other:
Number of approximated MODERATE 2 2 3
amounts of urine
Number of approximated LARGE 3 3
amounts of urine
How many times incontinent 1
MODERATE amount urine
How many times incontinent 1 2 2
SATURATED amount urine
Physical Exam
-
General: No Acute Distress and AOx3
HEENT: Grossly Normal
Abdomen: Soft, Non Distended, Tender (Appropriately tender), No Guarding, No Rebound and Other (VAC in place and functioning; RLQ PRINCE-purulent, left-sided IR drain-serous)
Skin: Warm and Dry
Wound: No Signs of Infection and No Skin Erythema
--- NOTE | 2024-07-04 09:43 | W.PN.HOSP.TC ---
Today's Communication/Plan
-
Cont. antibiotics
Management of wound vac per colorectal
Assessment / Plan
Assessment / Plan
Assessment and plan:
Acute sigmoid bowel perforation with acute surgical abdomen
Complicated by E. coli bacteremia due to bowel perforation, hepatic abscess, wound dehiscence
-Pt extubated on room air off TPN on 06/24 and advancing diet as tolerated
-Pain control with oxy and Tylenol
-Recommend ambulate twice daily with abdominal binder, recommend PT with discharged to [facility] if possible to help manage Vac
-repeat CT 06/29 reveals new formed abscess
-Cont with zosyn and micafungin through 08/10
-06/30 IR - adjusted L-sided drain, aspirated anterior right hepatic collection, perisplenic was not safely accessible
-Further management per colorectal - discussing surgical options with general surgery
-Trend fever and white count, follow-up on cultures
-WBC uptrending appreciate ID
Cough/congestion
-Denies any sore throat, runny nose, headache
-States just some increased congestion with clear phlegm
-Chest x-ray done on 06/28 for same symptoms
-Covid and flu swab
Profound hypokalemia
-Replete ass needed
Hypomagnesemia
-Repleted and resolved
Thrombocytosis
-Likely secondary to infx
-Monitor
Post op anemia
-No evidence of external bleeding
-Received 1 unit of blood on 06/26/2024
-currently stable
-Monitor CBC
LONG secondary to bowel perforation/infection
-Resolved
Hyponatremia
-Hypovolemic, encourage p.o. fluids
-Resolved
Atrial fibrillation with rapid ventricular response
-New diagnosis found postoperatively.
-[id number] of 4 due to the age being greater than 75, female, hypertension
-Not currently on anticoagulation due to recent abdominal surgery, anemia, and wound VAC
-Patient is now back in sinus rhythm
-Started on metoprolol 12.5 twice daily currently stable
Essential hypertension
-Started on amlodipine 5 mg now twice daily instead of once daily per home meds
-Stable
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
-Matheus removed
-PT OT
-Appreciate Ortho
-Interstitial lung disease with bronchiectasis
-Past medical history of spontaneous pneumothorax
DVT prophylaxis: Subcu Lovenox
Full code
Acute rehab once medically/surgically stable appreciate rotoprinter input.
Anticipated Discharge: > 48 hours
Subjective/Interval History
-
Date of Service: July 04, 2024
Objective Data
-
Labs:
Laboratory Results
07/04/24
06:00
WBC Pending
Hgb Pending
Hct Pending
Plt Count Pending
Sodium Pending
Potassium Pending
Chloride Pending
Carbon Dioxide Pending
BUN Pending
Creatinine Pending
Glucose Pending
Calcium Pending
Vital Signs:
Vital Signs
Temp Pulse Resp BP Pulse Ox
98.5 F 75 16 154/83 96
07/04/24 07:00 07/04/24 08:46 07/04/24 07:00 07/04/24 08:46 07/04/24 07:00
I&O
07/03/24 07/04/24 07/05/24
06:59 06:59 06:59
Intake Total 2270 / 2270 2345 / 2345 480 / 480
Output Total 163 / 163 156 / 156 300 / 300
Balance 2107 / 2107 2189 / 2189 180 / 180
Review of Systems
-
History Source: Patient
Constitutional: Reports No Symptoms
Respiratory: Reports Other (Increased congestion with slight cough )
Cardiac: Reports No Symptoms
Abdomen/GI: Reports Abdominal Pain (minimal compared to prior ); Denies Nausea or Vomiting
Neuro: Reports No Symptoms
Physical Exam
-
General: No Apparent Distress and Appears Chronically Ill
HEENT: Normocephalic
Respiratory: Clear to Auscultation and Other (congestion, clear phlegm )
Cardiac: Regular Rhythm and S1/S2
GI: Soft, Nondistended, Normal Bowel Sounds, Tender and Ostomy
Musculoskeletal: No Edema
Skin: Warm and Dry
Neuro: AO x 3
Psych: Calm
--- NOTE | 2024-07-04 10:16 | CM ---
Patient seen at bedside. Patient states she anticipates further wound procedure. CM reviewed chart. Patient stated that the plan for [facility] is still current. CM sent updated clinicals to [facility] via all scripts and will continue to follow for discharge
planning needs. CM will continue to follow for discharge planning needs.
Plan;[facility] pending bed availability when medically appropriate.
[2024-07-04 10:24] LABS: Hematocrit 27.2 % (37.0-47.0); Hemoglobin 8.9 g/dL (12.0-16.0); Mean Corp Hgb Conc. 32.7 g/dL (33.0-37.0); Mean Corpuscular Hgb 29.9 pg (27.0-31.0); Mean Corpuscular Volume 91.3 fL (81.0-99.0); Mean Platelet Volume 9.4 fL (7.4-10.4); Platelet Count 602 10^3/uL (130-400); Red Blood Cell Count 2.98 10^6/uL (4.20-5.40); Red Cell Dist. Width 15.2 % (11.5-14.5); White Blood Cell Count 17.8 10^3/uL (4.8-10.8)
[2024-07-04 11:05] LABS: Blood Urea Nitrogen 18 mg/dl (7-17); Calcium 8.6 mg/dl (8.4-10.2); Carbon Dioxide 23 mmol/L (22-30); Chloride 98 mmol/L (98-107); Estimated Creatinine Clearance 58 ml/min; Glucose 251 mg/dl (70-99); Magnesium 1.6 mg/dl (1.6-2.3); Phosphorus 2.9 mg/dl (2.5-4.5); Potassium 3.4 mmol/L (3.5-5.1); Sodium 133 mmol/L (135-145); eGFR > 60.00
[2024-07-04] MEDS: ZOFRAN 4 MG IV (11:18)
[2024-07-04] MEDS: KLOR-CON 20 MEQ PO (11:18)
[2024-07-04] MEDS: MYCAMINE 105 MG IV (12:07)
[2024-07-04 13:07] LABS: Glucose - Point of Care 265 mg/dl (70-99)
[2024-07-04] MEDS: NOVOLOG FLEXPEN-MODERATE RESISTANCE 5 UNITS SC (13:14)
[2024-07-04 13:55] LABS: COVID-19 Antigen Negative (Negative)
--- NOTE | 2024-07-04 14:11 | PTCARENOTE ---
Patient POSITIVE for INFLUENZA A; Dr. Moreno & Dr. Sara De La Garza made aware; Nursing Electrician Technician Abdulkadir Storey & Bhumika White notified; will await [facility] bed this afternoon for transfer.
[2024-07-04 15:35] VITALS: BP 141/83
[2024-07-04 15:37] VITALS: BP 141/83
--- NOTE | 2024-07-04 16:00 | W.PN.SURGUPD ---
Surgical Update
Surgical Update
Patient seen in follow-up with colorectal PA and in discussions with Dr. Moreno for evaluation of her abdominal wall dehiscence and midline wound.
Ms. 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
Fascial dehiscence with subcutaneous tissue retraction and exposed small bowel.
Midline has granulated in well however there were multiple loops of exposed small bowel with granulation tissue.
Total open wound is 8.5 cm in horizontal length by 14 cm's in vertical length. There is significant laxity of the subcutaneous abdominal wall over this area without distention.
Right lower quadrant surgical drain with purulent material
Discussed with patient and her daughter via phone call as well as Dr. Moreno.
Treatment options for coverage would include either split thickness skin grafting as epithelialization over this large surface area would take an extended period of time and risk enteral atmospheric fistula development.
Alternatively given the laxity of the subcutaneous tissues utilizing subcutaneous skin flaps along the right and left abdominal wall may allow for coverage overlying granulating tissue with the understanding that there is a risk for subcutaneous
skin dehiscence but this would provide the best tissue coverage to minimize enterocutaneous fistula development
Laparotomy and fascial closure would not be a tenable at this point due to the robust remaining soft tissue inflammatory response at this dehiscence and would have prohibitive risk for iatrogenic fistula creation.
After discussions with patient and her daughter are comfortable proceeded with attempting subcutaneous closure overlying her chronic wound.
Pending medical course surgery may be scheduled for latter part of this week.
[2024-07-04 16:51] LABS: % Basophils 0.3 % (0-2); % Eosinophils 0.1 % (0-6); % Immature Granulocytes 3.5 % (0-0.5); % Lymphocytes 5.7 % (20.5-51.1); % Monocytes 4.6 % (1.7-9.3); % Neutrophils 85.8 % (42.2-75.2); Absolute Basophils 0.1 10^3/uL (0-0.2); Absolute Immature Granulocytes 0.6 10^3/uL (0-0.05); Absolute Monocytes 0.8 10^3/uL (0.1-0.6); Absolute Neutrophils 15.2 10^3/uL (1.4-6.5); Nucleated Red Blood Cells % 0 %
[2024-07-04 17:07] LABS: Iron 66 ug/dl (37-170)
[2024-07-04 17:21] LABS: Percent Saturation 30 % (20-50); Total Iron Binding Capacity 215 ug/dl (265-497)
[2024-07-04] MEDS: NOVOLOG FLEXPEN-MODERATE RESISTANCE 1 UNITS SC (17:55)
[2024-07-04] MEDS: LOVENOX 40 MG SC (17:55)
[2024-07-04 17:56] LABS: Glucose - Point of Care 189 mg/dl (70-99)
[2024-07-04] MEDS: NEURONTIN 300 MG PO (21:37)
[2024-07-04] MEDS: PEPCID 20 MG PO (21:37)
[2024-07-04] MEDS: TAMIFLU 75 MG PO (21:37)
[2024-07-04 22:04] LABS: Glucose - Point of Care 253 mg/dl (70-99)
[2024-07-04 23:07] VITALS: BP 137/82
[2024-07-05] MEDS: ZOSYN 100 IV ×4 (00:51→17:51)
[2024-07-05 05:01] LABS: Hemoglobin 7.5 g/dL (12.0-16.0); Mean Corp Hgb Conc. 32.6 g/dL (33.0-37.0); Mean Platelet Volume 9.3 fL (7.4-10.4); Platelet Count 468 10^3/uL (130-400); Red Cell Dist. Width 15.3 % (11.5-14.5); White Blood Cell Count 12.3 10^3/uL (4.8-10.8)
[2024-07-05 05:27] LABS: Blood Urea Nitrogen 22 mg/dl (7-17); Calcium 8.5 mg/dl (8.4-10.2); Carbon Dioxide 27 mmol/L (22-30); Chloride 99 mmol/L (98-107); Estimated Creatinine Clearance 52 ml/min; Glucose 112 mg/dl (70-99); Magnesium 1.7 mg/dl (1.6-2.3); Phosphorus 3.1 mg/dl (2.5-4.5); Potassium 3.7 mmol/L (3.5-5.1); Sodium 133 mmol/L (135-145); eGFR > 60.00
[2024-07-05 06:00] VITALS: BMI 22.9
[2024-07-05 07:15] VITALS: BP 131/66
[2024-07-05 07:33] LABS: Glucose - Point of Care 105 mg/dl (70-99)
[2024-07-05] MEDS: NOVOLOG FLEXPEN-MODERATE RESISTANCE SC ×2 (08:09→16:47)
[2024-07-05] MEDS: COLACE 100 MG PO ×2 (08:09→20:43)
[2024-07-05] MEDS: TAMIFLU 75 MG PO (08:09)
[2024-07-05] MEDS: NORVASC 5 MG PO ×2 (08:10→20:42)
[2024-07-05] MEDS: NEURONTIN 100 MG PO ×2 (08:10→15:07)
[2024-07-05] MEDS: LOPRESSOR 12.5 MG PO ×2 (08:10→20:43)
--- NOTE | 2024-07-05 09:57 | W.PN.CRS1 ---
Today's Communication / Plan
-
surgical planning for wound closure
continue wound vac
regular diet
Assessment/Plan
-
79-year-old female with PMH of HTN, HLD, interstitial lung disease with bronchiectasis, history of pneumonia multiple times, history of spontaneous pneumothorax x 2 who presents 8 days after right hip replacement; 4 days prior to admission, she
started to develop abdominal pain and nausea with decreased bowel function; the abdominal pain and nausea/vomiting continue to worsen; she denies any fevers, chest pain, or urinary symptoms; she does have dyspnea due to the abdominal pain; her last
colonoscopy was 2 years ago which she reports as normal (report not available to me); in the ED, her WBC was 9.3, CR 1.5 and a CTAP was done which shows moderate free air, extraluminal stool adjacent to the mid sigmoid colon with concern of sigmoid
perforation possibly due to diverticulitis
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
- extubated and pressors weaned off by POD 1; initially oliguric, but UOP recovered; A-fib with RVR, stabilized on Amio
- 06/12 CT - c/f subhepatic abscess, d/w [place] and felt that it more likely represents free fluid; remainder post-op changes
- 06/13 opened enrique at inferior midline for murky drainage
- 06/15 mild fascial dehiscence noted; CT -subhepatic abscess increased, fluid along the left gutter; s/p IR drain of subhepatic abscess�20 mL pus
- 06/16 s/p IR drain of left gutter�35 mL of turbid fluid
- 3 complete fascial dehiscence
- 3 vac placed with white sponge at 75mmHg
- 06/29 wbc 11.6, CT - evolving collections in anterior right hepatic lobe (8x4x1), post right hepatic lobe (5q5h8pk), perisplenic (3p2p6gp), left paracolic gutter ([id number]) and right mid-abdomen (1.5x2x1.5cm)
- 06/30 wbc 12.2, IR - adjusted L-sided drain, aspirated anterior right hepatic collection, perisplenic was not safely accessible
- 07/01 vac replaced, wbc 15
WBC 12.3 (17.8), Hgb 7.5 (8.3)
Vitals normal
- S/p fascial dehiscence; wound clean, but without much granulation; cont wound vac with vaseline gauze, white sponge, black sponge and vac to 75mmHg
-Concern that wound isn't granulating or decreasing in size significantly after 2 weeks of vac therapy; appreciate Dr. Kay. Surgical planning discussed yesterday.
- Intra-abdominal infections
� Appreciate ID, continue IV Zosyn and micafungin
-RLQ drain in pelvis with purulent but low output; s/p IR aspiration/drainage of collections; will follow up labs; will eventually
� Recommend OOB and ambulate twice daily with abdominal binder
- Appreciate PT, recommend PT, eventually will need rehab
� Pain control with tylenol, oxycodone, dilaudid
� A-fib with RVR, now in SR, appreciate cardiology
- Ok for therapeutic lovenox; hold off on DOAC until no further surgery planned
� Continue regular diet
� Appreciate hospitalist
Subjective Data
Procedure
Exploratory laparotomy, lysis of his adhesions, sigmoidectomy, creation of end colostomy on 06/07/24
Subjective Data
Date of Service: July 05, 2024
Patient states she feels well. She has been hungry and eating. Her pain is controlled. She has no complaints.
Objective Data
-
Vital Signs
Temp Pulse Resp BP Pulse Ox
97.5 F 66 17 131/66 95
07/05/24 07:15 07/05/24 07:15 07/05/24 07:15 07/05/24 07:15 07/05/24 07:15
Intake & Output
07/04/24 07/05/24 07/06/24
06:59 06:59 06:59
Intake Total 2345 / 2345 1245 / 1245
Output Total 156 / 156 810 / 810
Balance 2189 / 2189 435 / 435
Intake:
Oral fluids 2220 / 2220 1040 / 1040
IV fluids (Total)
IV piggybacks 100 / 100 205 / 205
Output:
Liquid stool amount 100 / 100 810 / 810
Colostomy 100 / 100 810 / 810
Drain Output (Total)
Abdomen Wound Vac
Left Lower Abdomen Placed in IR
Right Lower Abdomen Darius-
[place]
Other:
Number of approximated MODERATE 2 1
amounts of urine
Number of approximated LARGE 3
amounts of urine
How many times incontinent 1
MODERATE amount urine
How many times incontinent 2 2
SATURATED amount urine
Lab Results
07/05/24 04:33
07/05/24 04:33
Physical Exam
-
General: No Acute Distress and AOx3
Abdomen: Soft, Non Distended, Non Tender and Other (wound vac in place. RLQ drain purulent. LUQ drain serous. )
--- NOTE | 2024-07-05 10:16 | W.PN.HOSP.TC ---
Today's Communication/Plan
-
Cont antibiotics
Tamiflu 04/29
Pt decided to pursue further surgical management of wound dehiscence which will be scheduled after flu resolves
Assessment / Plan
Assessment / Plan
Assessment and plan:
Acute sigmoid bowel perforation with acute surgical abdomen
Complicated by E. coli bacteremia due to bowel perforation, hepatic abscess, wound dehiscence
-Pt extubated on room air off TPN on 06/24 and advancing diet as tolerated
-Pain control with oxy and Tylenol
-Recommend ambulate twice daily with abdominal binder, recommend PT with discharged to [place] [facility]hab if possible to help manage Vac
-repeat CT 06/29 reveals new formed abscess
-Cont with zosyn and micafungin through 08/10
-06/30 IR - adjusted L-sided drain, aspirated anterior right hepatic collection, perisplenic was not safely accessible
-Pt decided further surgical management for wound dehiscence
-Trend fever and white count, follow-up on cultures
Influenza A (+)
-Robitussin for cough
-Tamiflu day 05/30
Post op anemia
-No evidence of external bleeding
-Received 1 unit of blood on 06/26/2024
-Today hg 7.5
-Repeat Hg in pm
Profound hypokalemia
-Replete as needed
Hypomagnesemia
-Repleted and resolved
Thrombocytosis
-Likely secondary to infx
-Monitor
LONG secondary to bowel perforation/infection
-Resolved
Hyponatremia
-Hypovolemic, encourage p.o. fluids
Atrial fibrillation with rapid ventricular response
-New diagnosis found postoperatively.
-[id number] of 4 due to the age being greater than 75, female, hypertension
-Not currently on anticoagulation due to recent abdominal surgery, anemia, and wound VAC
-Patient is now back in sinus rhythm
-Started on metoprolol 12.5 twice daily currently stable
Essential hypertension
-Started on amlodipine 5 mg now twice daily instead of once daily per home meds
-Stable
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
-Matheus removed
-PT OT
-Appreciate Ortho
-Interstitial lung disease with bronchiectasis
-Past medical history of spontaneous pneumothorax
DVT prophylaxis: Subcu Lovenox
Full code
Acute rehab once medically/surgically stable appreciate key punch operator input.
Anticipated Discharge: > 48 hours
Subjective/Interval History
-
Date of Service: July 05, 2024
Sad about getting the flu further postponing surgery
Objective Data
-
Labs:
Laboratory Results
07/05/24
04:33
WBC 12.3 H
Hgb 7.5 L
Hct 23.0 L
Plt Count 468 H D
Sodium 133 L
Potassium 3.7
Chloride 99
Carbon Dioxide 27
BUN 22 H
Creatinine 0.9
Glucose 112 H
Calcium 8.5
Vital Signs:
Vital Signs
Temp Pulse Resp BP Pulse Ox
97.5 F 66 17 131/66 95
07/05/24 07:15 07/05/24 07:15 07/05/24 07:15 07/05/24 07:15 07/05/24 07:15
I&O
07/04/24 07/05/24 07/06/24
06:59 06:59 06:59
Intake Total 2345 / 2345 1245 / 1245
Output Total 156 / 156 810 / 810
Balance 2189 / 2189 435 / 435
Review of Systems
-
History Source: Patient
EENT: Reports No Symptoms Reported
Respiratory: Reports No Symptoms
Cardiac: Reports No Symptoms
Abdomen/GI: Reports No Symptoms
Skin: Reports No Symptoms
Neuro: Reports No Symptoms
Physical Exam
-
General: No Apparent Distress and Appears Chronically Ill
HEENT: Normocephalic
Respiratory: Clear to Auscultation
Cardiac: Regular Rhythm and S1/S2
GI: Nondistended, Normal Bowel Sounds and Tender
Skin: Warm
Neuro: AO x 3
Psych: Calm
[2024-07-05 11:28] LABS: Glucose - Point of Care 221 mg/dl (70-99)
[2024-07-05] MEDS: NOVOLOG FLEXPEN-MODERATE RESISTANCE 3 UNITS SC (12:20)
[2024-07-05 13:28] LABS: Hematocrit 24.3 % (37.0-47.0); Hemoglobin 8.1 g/dL (12.0-16.0); Mean Corp Hgb Conc. 33.3 g/dL (33.0-37.0); Mean Corpuscular Hgb 30.5 pg (27.0-31.0); Mean Corpuscular Volume 91.4 fL (81.0-99.0); Mean Platelet Volume 8.9 fL (7.4-10.4); Platelet Count 467 10^3/uL (130-400); Red Blood Cell Count 2.66 10^6/uL (4.20-5.40); Red Cell Dist. Width 15.1 % (11.5-14.5); White Blood Cell Count 15.1 10^3/uL (4.8-10.8)
[2024-07-05] MEDS: MYCAMINE 105 MG IV (14:07)
[2024-07-05] MEDS: ROBITUSSIN 100 MG PO ×2 (15:05→20:43)
[2024-07-05 15:34] VITALS: BP 143/72
--- NOTE | 2024-07-05 15:35 | PTCARENOTE ---
Pt continues to have purulent drainage from R PRINCE. L PRINCE w/ serous output. Pt ambulatory to bathroom several times today - assist x 2 w/ RW. Had some pink blood on toilet paper when wiping after urinating - no wound noted - urine clear/yellow.
[2024-07-05 16:46] LABS: Glucose - Point of Care 150 mg/dl (70-99)
[2024-07-05] MEDS: LOVENOX 40 MG SC (17:50)
[2024-07-05] MEDS: PEPCID 20 MG PO (20:43)
[2024-07-05] MEDS: NEURONTIN 300 MG PO (20:43)
[2024-07-05] MEDS: TAMIFLU 30 MG PO (20:45)
[2024-07-05 21:48] LABS: Glucose - Point of Care 213 mg/dl (70-99)
[2024-07-05 23:03] VITALS: BP 134/76
[2024-07-06] VITALS (13 sets, daily range): BP systolic 1–147; BP diastolic 65–80; PULSE 68; O2SAT 96
[2024-07-06] MEDS: FLUSH (NSS) 4 FLUSH IV ×2 (00:01→05:07)
--- NOTE | 2024-07-06 04:31 | DOWNTIME ---
There was a [employer] Client Cashier Ticket Selling Downtime on 07/06/2024 from 0100 to 07/07/2023 at 0420 . Downtime documentation of patient's care, including medication administrations, has been reconciled in the electronic record per guidelines. Refer to the
patient's paper chart under the miscellaneous tab to see printed paper medication records and downtime forms.
--- NOTE | 2024-07-06 04:42 | PTCARENOTE ---
Addendum entered by Joseph Sheppard RN 07/06/24 06:10:
very little output in anne's- left had 0 rt had 5 ml
Original Note:
pt npo since midnight- chg wipes completed with linen change- colostomy working well with formed bm- pt ambulated to br with walker w/ one assist
[2024-07-06] MEDS: ZOSYN 100 IV ×4 (05:07→17:56)
[2024-07-06 05:40] LABS: Glucose - Point of Care 125 mg/dl (70-99)
[2024-07-06 06:33] LABS: % Basophils 0.3 % (0-2); % Eosinophils 0.2 % (0-6); % Immature Granulocytes 4.5 % (0-0.5); % Lymphocytes 6.5 % (20.5-51.1); % Monocytes 5.2 % (1.7-9.3); % Neutrophils 83.3 % (42.2-75.2); Absolute Immature Granulocytes 0.6 10^3/uL (0-0.05); Absolute Lymphocytes 0.9 10^3/uL (1.2-3.4); Absolute Monocytes 0.7 10^3/uL (0.1-0.6); Hemoglobin 7.7 g/dL (12.0-16.0); Mean Corp Hgb Conc. 32.1 g/dL (33.0-37.0); Mean Corpuscular Hgb 29.3 pg (27.0-31.0); Mean Corpuscular Volume 91.3 fL (81.0-99.0); Mean Platelet Volume 9.4 fL (7.4-10.4); Nucleated Red Blood Cells % 0 %; Platelet Count 450 10^3/uL (130-400); Red Blood Cell Count 2.63 10^6/uL (4.20-5.40); White Blood Cell Count 13.2 10^3/uL (4.8-10.8)
[2024-07-06 06:47] LABS: ALT (SGPT) 48 U/L (0-35); AST (SGOT) 50 U/L (14-36); Albumin 2.4 g/dl (3.5-5.0); Alkaline Phosphatase 177 U/L (38-126); Blood Urea Nitrogen 18 mg/dl (7-17); Calcium 8.3 mg/dl (8.4-10.2); Carbon Dioxide 28 mmol/L (22-30); Chloride 98 mmol/L (98-107); Estimated Creatinine Clearance 67 ml/min; Glucose 122 mg/dl (70-99); Magnesium 1.6 mg/dl (1.6-2.3); Sodium 133 mmol/L (135-145); Total Bilirubin 0.6 mg/dl (0.2-1.3); Total Protein 5.3 g/dl (6.3-8.2); eGFR > 60.00
[2024-07-06] MEDS: NORVASC 5 MG PO ×2 (08:00→19:34)
[2024-07-06] MEDS: NEURONTIN 100 MG PO ×2 (08:00→19:32)
[2024-07-06] MEDS: LOPRESSOR 12.5 MG PO ×2 (08:00→19:34)
[2024-07-06] MEDS: TAMIFLU 30 MG PO (08:00)
[2024-07-06] MEDS: COLACE 100 MG PO ×2 (08:00→19:35)
--- NOTE | 2024-07-06 09:09 | W.PN.HOSP.TC ---
Today's Communication/Plan
-
OR
NPO
Cont antibiotics
Assessment / Plan
Assessment / Plan
Assessment and plan:
Acute sigmoid bowel perforation with acute surgical abdomen
Complicated by E. coli bacteremia due to bowel perforation, hepatic abscess, wound dehiscence
-Pt extubated on room air off TPN on 06/24 and advancing diet as tolerated
-Pain control with oxy and Tylenol
-Recommend ambulate twice daily with abdominal binder, recommend PT with discharged to [place] rehab if possible to help manage Vac
-repeat CT 06/29 reveals new formed abscess
-Cont with zosyn and micafungin through 08/10
-06/30 IR - adjusted L-sided drain, aspirated anterior right hepatic collection, perisplenic was not safely accessible
-Pt decided further surgical management for wound dehiscence - OR today, NPO
-Trend fever and white count, follow-up on cultures
Influenza A (+)
-Robitussin for cough, otherwise asymptomatic
-Tamiflu day 06/27
Post op anemia
-No evidence of external bleeding
-Received 1 unit of blood on 06/26/2024
-Monitor CBC
Profound hypokalemia
-Replete as needed
Hypomagnesemia
-Repleted and resolved
Thrombocytosis
-Likely secondary to infx
-Monitor
LONG secondary to bowel perforation/infection
-Resolved
Hyponatremia
-Hypovolemic, encourage p.o. fluids
Mildly elevated LFTs
-Likely 2/2 recent surgeries/illness/hepatic abscess
-Monitor
Atrial fibrillation with rapid ventricular response
-New diagnosis found postoperatively.
-[id number] of 4 due to the age being greater than 75, female, hypertension
-Not currently on anticoagulation due to recent abdominal surgery, anemia, and wound VAC
-Patient is now back in sinus rhythm
-Started on metoprolol 12.5 twice daily currently stable
Essential hypertension
-Started on amlodipine 5 mg now twice daily instead of once daily per home meds
-Stable
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
-Matheus removed
-PT OT
-Appreciate Ortho
-Interstitial lung disease with bronchiectasis
-Past medical history of spontaneous pneumothorax
DVT prophylaxis: Subcu Lovenox
Full code
Acute rehab once medically/surgically stable appreciate morgue attendant input.
Anticipated Discharge: > 48 hours
Subjective/Interval History
-
Date of Service: July 06, 2024
Objective Data
-
Labs:
Laboratory Results
07/06/24
05:58
WBC 13.2 H
Hgb 7.7 L
Hct 24.0 L
Plt Count 450 H
Sodium 133 L
Potassium 3.0 L
Chloride 98
Carbon Dioxide 28
BUN 18 H
Creatinine 0.7
Glucose 122 H
Calcium 8.3 L
Total Bilirubin 0.6
AST 50 H
ALT 48 H
Alkaline Phosphatase 177 H
Vital Signs:
Vital Signs
Temp Pulse Resp BP Pulse Ox
97.7 F 72 17 147/80 96
07/06/24 07:08 07/06/24 07:08 07/06/24 07:08 07/06/24 07:08 07/06/24 07:08
I&O
07/05/24 07/06/24 07/07/24
06:59 06:59 06:59
Intake Total 1245 / 1245 1140 / 1140
Output Total 810 / 810 955 / 955
Balance 435 / 435 185 / 185
Review of Systems
-
History Source: Patient
EENT: Reports No Symptoms Reported
Respiratory: Reports Cough
Cardiac: Reports No Symptoms
Abdomen/GI: Reports Abdominal Pain; Denies Nausea or Vomiting
Neuro: Reports No Symptoms
Physical Exam
-
General: Appears Chronically Ill
HEENT: Normocephalic
Respiratory: Clear to Auscultation
Cardiac: Regular Rhythm and S1/S2
GI: Soft, Nondistended, Normal Bowel Sounds and Tender
Skin: Warm and Dry
Neuro: AO x 3
Psych: Calm
--- NOTE | 2024-07-06 09:16 | WOUNDNOTE ---
[facility] RN Note: Patient for abdominal wound closure this afternoon. Patient is on a Centrella Pro mattress. Discussed with CARLY Telles who will apply a static air overlay with RADHA Funes. Sacrum mild red and intact. Sacral shaped silicone border foam
applied. L outer buttocks with small serous blister suspect r/t edema and friction. Protective silicone border foam applied. Skin on heels intact. TruVue lite boots reapplied. Patient turned to R semi side lying position with help from CARLY Telles
using a foam wedge and pillow. Colostomy appliance intact without leakage (dated 07/05/24). Abdominal wound vac dressing intact with a vac suction. Discussed with RADHA Funes. Ostomy supplies left in room. Will follow as needed.
--- NOTE | 2024-07-06 09:25 | W.PN.CRS1 ---
Today's Communication / Plan
-
OR today with Dr. Moreno/Rahul
NPO
Holding lovenox for OR
Assessment/Plan
-
79-year-old female with PMH of HTN, HLD, interstitial lung disease with bronchiectasis, history of pneumonia multiple times, history of spontaneous pneumothorax x 2 who presents 8 days after right hip replacement; 4 days prior to admission, she
started to develop abdominal pain and nausea with decreased bowel function; the abdominal pain and nausea/vomiting continue to worsen; she denies any fevers, chest pain, or urinary symptoms; she does have dyspnea due to the abdominal pain; her last
colonoscopy was 2 years ago which she reports as normal (report not available to me); in the ED, her WBC was 9.3, CR 1.5 and a CTAP was done which shows moderate free air, extraluminal stool adjacent to the mid sigmoid colon with concern of sigmoid
perforation possibly due to diverticulitis
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
- extubated and pressors weaned off by POD 1; initially oliguric, but UOP recovered; A-fib with RVR, stabilized on Amio
- 06/12 CT - c/f subhepatic abscess, d/w [place] and felt that it more likely represents free fluid; remainder post-op changes
- 06/13 opened enrique at inferior midline for murky drainage
- 06/15 mild fascial dehiscence noted; CT -subhepatic abscess increased, fluid along the left gutter; s/p IR drain of subhepatic abscess�20 mL pus
- 06/16 s/p IR drain of left gutter�35 mL of turbid fluid
- 06/18 complete fascial dehiscence
- 3 vac placed with white sponge at 75mmHg
- 06/29 wbc 11.6, CT - evolving collections in anterior right hepatic lobe (8x4x1), post right hepatic lobe ([id number]), perisplenic ([id number]), left paracolic gutter ([id number]) and right mid-abdomen (1.5x2x1.5cm)
- 06/30 wbc 12.2, IR - adjusted L-sided drain, aspirated anterior right hepatic collection, perisplenic was not safely accessible
- 07/01 vac replaced, wbc 15
WBC 13.2 (12.3), Hgb 7.7 (7.5)
Vitals normal
- S/p fascial dehiscence; wound clean, but without much granulation; cont wound vac with vaseline gauze, white sponge, black sponge and vac to 75mmHg
-Concern that wound isn't granulating or decreasing in size significantly after 2 weeks of vac therapy; appreciate Dr. Kay. Will be going to OR today around 3pm with Dr. Moreno/Rahul for wound closure.
- Intra-abdominal infections
� Appreciate ID, continue IV Zosyn and micafungin
-RLQ drain in pelvis with purulent but low output; s/p IR aspiration/drainage of collections; will follow up labs; will eventually
� Recommend OOB and ambulate twice daily with abdominal binder
- Appreciate PT, recommend PT, eventually will need rehab
� Pain control with tylenol, oxycodone, dilaudid
� A-fib with RVR, now in SR, appreciate cardiology
- Holding Lovenox for OR
- NPO for OR
- Type and screen ordered for OR
� Appreciate hospitalist
Subjective Data
Procedure
Exploratory laparotomy, lysis of his adhesions, sigmoidectomy, creation of end colostomy on 06/07/24
Subjective Data
Date of Service: July 06, 2024
Patient states she feels well. She has no complaints.
Objective Data
-
Vital Signs
Temp Pulse Resp BP Pulse Ox
97.7 F 72 17 147/80 96
07/06/24 07:08 07/06/24 07:08 07/06/24 07:08 07/06/24 07:08 07/06/24 07:08
Intake & Output
07/05/24 07/06/24 07/07/24
06:59 06:59 06:59
Intake Total 1245 / 1245 1140 / 1140
Output Total 810 / 810 955 / 955
Balance 435 / 435 185 / 185
Intake:
Oral fluids 1040 / 1040 1140 / 1140
IV piggybacks
Output:
Liquid stool amount 810 / 810
Colostomy 810 / 810
Drain Output (Total)
Left Lower Abdomen Placed in IR
Right Lower Abdomen Darius- 0 / 0
[place]
Urine, Voided 950 / 950
Other:
Number of approximated SMALL 1
amounts of urine
Number of approximated MODERATE 1 1
amounts of urine
Number of approximated LARGE 2
amounts of urine
How many times incontinent 2
SATURATED amount urine
Lab Results
07/06/24 05:58
07/06/24 05:58
Physical Exam
-
General: No Acute Distress and AOx3
Abdomen: Soft, Non Distended and Other (wound vac in place, RLQ drain purulent)
Skin: Warm and Dry
--- NOTE | 2024-07-06 11:07 | CM ---
Patient seen at bedside
NPO, OR today
PLAN: [facility] when medically ready
[2024-07-06 12:19] LABS: Glucose - Point of Care 110 mg/dl (70-99)
[2024-07-06] MEDS: KCL 40 MEQ PO (12:19)
[2024-07-06] MEDS: MYCAMINE 105 MG IV (13:05)
--- NOTE | 2024-07-06 15:29 | W.SUR.PREOP ---
Pre-Operative Surgical Note
-
I have examined this patient prior to the performance of the scheduled procedure.
The patient's condition is unchanged from the time of the current History and
Physical and the patient is able to undergo the scheduled procedure.
--- NOTE | 2024-07-06 16:39 | PTCARENOTE ---
Patients family members and patients daughter educated on importance of masking with patients flu + diagnosis. Patients daughter refusing to mask. Stating ' I have been here all week with my mother. I dont see why I have to mask.' international bank manager
made aware.
--- NOTE | 2024-07-06 17:30 | W.IMMPOSTOP ---
Addendum entered and electronically signed by Robi Kay MD 07/06/24 17:47:
#[id number]
Original Note:
Surgical Immed Post Op Note
-
Primary Surgeon: Robi Kay MD
Assisting Surgeon: Jesse Moreno MD
Pre-op Diagnosis: Fascial dehiscence with open abdominal wall wound
Post-op Diagnosis: Fascial dehiscence with open abdominal wall wound
Procedure Performed: Delayed primary closure of abdominal wall wound
Anesthesia Type: GETA +0.25% Marcaine
Specimen / Cultures: None
Estimated Blood Loss: 4 mL
Complications: None immediate
Operative Findings: Clean granulating abdominal wall wound with fascial dehiscence. Minimal fibrin sloughing sharply debrided with Metzenbaum scissors. Exposed small bowel essentially fused to fascia circumferentially, did not manipulate.
Subcutaneous flaps raised circumferentially. Open wound 21 cm vertically by 7 cm in width. Subcutaneous flap circumferentially approximately 2.5 cm onto anterior rectus sheath fascia with preservation of perforators. Multilayer subcutaneous and
skin closure with numerous interrupted 2-0 Vicryl's, 3-0 Vicryl's and 3-0 nylon in a vertical mattress. ADELA dressing applied.
Drain: right upper quadrant 19 Juan going into subcutaneous space overlying fascial dehiscence
[2024-07-06 17:34] LABS: Glucose - Point of Care 99 mg/dl (70-99)
[2024-07-06] MEDS: DILAUDID 0.25 MG IV ×2 (17:56→21:19)
[2024-07-06 19:06] LABS: Glucose - Point of Care 128 mg/dl (70-99)
[2024-07-06] MEDS: TAMIFLU 75 MG PO (19:35)
[2024-07-06] MEDS: PEPCID 20 MG PO (21:19)
[2024-07-06] MEDS: NEURONTIN 300 MG PO (21:19)
[2024-07-07] MEDS: ZOSYN 100 IV ×4 (00:57→17:29)
[2024-07-07 03:20] VITALS: BP 119/62
[2024-07-07 04:52] LABS: Hematocrit 22.5 % (37.0-47.0); Hemoglobin 7.5 g/dL (12.0-16.0); Mean Corp Hgb Conc. 33.3 g/dL (33.0-37.0); Mean Platelet Volume 9.4 fL (7.4-10.4); Platelet Count 421 10^3/uL (130-400); Red Cell Dist. Width 14.9 % (11.5-14.5); White Blood Cell Count 12.9 10^3/uL (4.8-10.8)
[2024-07-07 04:58] VITALS: BMI 22.1
[2024-07-07 05:15] LABS: Blood Urea Nitrogen 16 mg/dl (7-17); Calcium 8.1 mg/dl (8.4-10.2); Carbon Dioxide 28 mmol/L (22-30); Chloride 101 mmol/L (98-107); Estimated Creatinine Clearance 67 ml/min; Glucose 98 mg/dl (70-99); Magnesium 1.7 mg/dl (1.6-2.3); Potassium 3.2 mmol/L (3.5-5.1); Sodium 133 mmol/L (135-145); eGFR > 60.00
[2024-07-07] MEDS: DILAUDID 0.25 MG IV (05:17)
[2024-07-07 07:17] VITALS: BP 142/73
[2024-07-07 07:17] LABS: Glucose - Point of Care 100 mg/dl (70-99)
[2024-07-07] MEDS: NEURONTIN 100 MG PO ×2 (08:30→17:29)
[2024-07-07] MEDS: KCL 40 MEQ PO (08:30)
[2024-07-07] MEDS: TAMIFLU 75 MG PO ×2 (08:30→20:45)
[2024-07-07] MEDS: NORVASC 5 MG PO ×2 (08:30→20:47)
[2024-07-07] MEDS: COLACE 100 MG PO ×2 (08:30→20:45)
[2024-07-07] MEDS: LOPRESSOR 12.5 MG PO ×2 (08:31→20:45)
--- NOTE | 2024-07-07 09:03 | W.PN.HOSP.TC ---
Today's Communication/Plan
-
Cont antibiotics
PT with ab binder
POD #1
Advance diet per surgical team
Assessment / Plan
Assessment / Plan
Assessment and plan:
Acute sigmoid bowel perforation with acute surgical abdomen
Complicated by E. coli bacteremia due to bowel perforation, hepatic abscess, wound dehiscence
-Pt extubated on room air off TPN on 06/24 and advancing diet as tolerated
-Pain control with oxy and Tylenol
-Recommend ambulate twice daily with abdominal binder, recommend PT with discharged to [place] [facility] if possible to help manage Vac
-repeat CT 06/29 reveals new formed abscess
-Cont with zosyn and micafungin through 08/10
-06/30 IR - adjusted L-sided drain, aspirated anterior right hepatic collection, perisplenic was not safely accessible
-OR for dehiscence closure on 07/06 - POD #1 successful
-PT with ab binder, advance diet per colorectal
-Continue to trend WBC and temp
Influenza A (+)
-Robitussin for cough, otherwise asymptomatic
-Tamiflu day 07/28
Post op anemia
-No evidence of external bleeding
-Received 1 unit of blood on 06/26/2024
-Monitor CBC
Profound hypokalemia
-Replete as needed
Hypomagnesemia
-Repleted and resolved
Thrombocytosis
-Likely secondary to infx
-Monitor
LONG secondary to bowel perforation/infection
-Resolved
Hyponatremia
-Hypovolemic, encourage p.o. fluids
Mildly elevated LFTs
-Likely 2/2 recent surgeries/illness/hepatic abscess
-Monitor
Atrial fibrillation with rapid ventricular response
-New diagnosis found postoperatively.
-[id number] of 4 due to the age being greater than 75, female, hypertension
-Not currently on anticoagulation due to recent abdominal surgery, anemia, and wound VAC
-Patient is now back in sinus rhythm
-Started on metoprolol 12.5 twice daily currently stable
Essential hypertension
-Started on amlodipine 5 mg now twice daily instead of once daily per home meds
-Stable
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
-Matheus removed
-PT OT
-Appreciate Ortho
-Interstitial lung disease with bronchiectasis
-Past medical history of spontaneous pneumothorax
DVT prophylaxis: Subcu Lovenox
Full code
Acute rehab once medically/surgically stable appreciate tobacco hanger input.
Anticipated Discharge: > 48 hours
Subjective/Interval History
-
Date of Service: July 07, 2024
Objective Data
-
Labs:
Laboratory Results
07/07/24
04:39
WBC 12.9 H
Hgb 7.5 L
Hct 22.5 L
Plt Count 421 H
Sodium 133 L
Potassium 3.2 L
Chloride 101
Carbon Dioxide 28
BUN 16
Creatinine 0.7
Glucose 98
Calcium 8.1 L
Vital Signs:
Vital Signs
Temp Pulse Resp BP Pulse Ox
97.7 F 66 16 142/73 95
07/07/24 07:17 07/07/24 07:17 07/07/24 07:17 07/07/24 08:31 07/07/24 07:17
I&O
07/06/24 07/07/24 07/08/24
06:59 06:59 06:59
Intake Total 1140 / 1140 1000 / 1000
Output Total 955 / 955 623 / 623
Balance 185 / 185 377 / 377
Review of Systems
-
History Source: Patient
EENT: Reports No Symptoms Reported
Respiratory: Reports No Symptoms
Cardiac: Reports No Symptoms
Abdomen/GI: Reports No Symptoms
Neuro: Reports No Symptoms
Physical Exam
-
General: Comfortable
HEENT: Normocephalic
Respiratory: Clear to Auscultation
Cardiac: Regular Rhythm and S1/S2
GI: Soft, Nondistended, Normal Bowel Sounds and Tender
Skin: Warm
Neuro: AO x 3
Psych: Calm
--- NOTE | 2024-07-07 09:10 | W.PN.CRS1 ---
Addendum entered and electronically signed by Jesse Moreno MD 07/07/24 19:04:
Saw patient, doing well. Her RLQ PRINCE may be kinked at the skin due to the wound closure surgery, monitor output. If abruptly tapers off, will need to adjust stitch. Cont reg diet. If wbc doesn't improve tmrw, would rescan to assess intra-abdominal
collections and if IR exchange/adjustment needed.
Original Note:
Today's Communication / Plan
-
advance to regular diet
restart lovenox
Assessment/Plan
-
79-year-old female with PMH of HTN, HLD, interstitial lung disease with bronchiectasis, history of pneumonia multiple times, history of spontaneous pneumothorax x 2 who presents 8 days after right hip replacement; 4 days prior to admission, she
started to develop abdominal pain and nausea with decreased bowel function; the abdominal pain and nausea/vomiting continue to worsen; she denies any fevers, chest pain, or urinary symptoms; she does have dyspnea due to the abdominal pain; her last
colonoscopy was 2 years ago which she reports as normal (report not available to me); in the ED, her WBC was 9.3, CR 1.5 and a CTAP was done which shows moderate free air, extraluminal stool adjacent to the mid sigmoid colon with concern of sigmoid
perforation possibly due to diverticulitis
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
- extubated and pressors weaned off by POD 1; initially oliguric, but UOP recovered; A-fib with RVR, stabilized on Amio
- 06/12 CT - c/f subhepatic abscess, d/w [place] and felt that it more likely represents free fluid; remainder post-op changes
- 06/13 opened enrique at inferior midline for murky drainage
- 06/15 mild fascial dehiscence noted; CT -subhepatic abscess increased, fluid along the left gutter; s/p IR drain of subhepatic abscess�20 mL pus
- 06/16 s/p IR drain of left gutter�35 mL of turbid fluid
- 06/18 complete fascial dehiscence
- 06/20 vac placed with white sponge at 75mmHg
- 06/29 wbc 11.6, CT - evolving collections in anterior right hepatic lobe (8x4x1), post right hepatic lobe ([id number]), perisplenic ([id number]), left paracolic gutter ([id number]) and right mid-abdomen (1.5x2x1.5cm)
- 06/30 wbc 12.2, IR - adjusted L-sided drain, aspirated anterior right hepatic collection, perisplenic was not safely accessible
- 07/01 vac replaced, wbc 15
- 07/07 - flap closure
WBC 12.9 (13.2), Hgb 7.5 (7.7)
Vitals normal
- Advance diet to regular
- Restart lovenox tonight for DVT prophylaxis, TEDs/SCDs in place
- Intra-abdominal infections
� Appreciate ID, continue IV Zosyn and micafungin
-RLQ drain in pelvis with purulent, continue
- Continue subq drain under wound flap
� OOB per Dr. Kay
- Dispo: eventual rehab
� Pain control with tylenol, oxycodone, dilaudid
� Appreciate hospitalist
Subjective Data
Procedure
06/07/2024- Exploratory laparotomy, lysis of his adhesions, sigmoidectomy, creation of end colostomy on
07/06/2024- Delayed primary closure of abdominal wall wound
Subjective Data
Date of Service: July 07, 2024
Patient states she feels well. Her pain is controlled. She has no nausea or vomiting.
Objective Data
-
Vital Signs
Temp Pulse Resp BP Pulse Ox
97.7 F 66 16 142/73 95
07/07/24 07:17 07/07/24 07:17 07/07/24 07:17 07/07/24 08:31 07/07/24 07:17
Intake & Output
07/06/24 07/07/24 07/08/24
06:59 06:59 06:59
Intake Total 1140 / 1140 1000 / 1000
Output Total 955 / 955 623 / 623
Balance 185 / 185 377 / 377
Intake:
Oral fluids 1140 / 1140 480 / 480
IV fluids (Total) 300 / 300
Normosol 300 / 300
IV piggybacks 200 / 200
Amount instilled into Drain (
Total)
Left Lower Abdomen Placed in IR
Output:
Liquid stool amount 100 / 100
Colostomy 100 / 100
Drain Output (Total) 48 / 48
Left Lower Abdomen Placed in IR
Right Lower Abdomen Darius- 0 / 0
[place]
Right Upper Abdomen Darius- 35 / 35
[place] A
Urine, Voided 950 / 950 475 / 475
Other:
Number of approximated SMALL 1
amounts of urine
Number of approximated MODERATE 1 3
amounts of urine
Number of approximated LARGE 2
amounts of urine
How many times incontinent 1
MODERATE amount urine
How many times incontinent 1
SATURATED amount urine
Lab Results
07/07/24 04:39
07/07/24 04:39
Physical Exam
-
General: No Acute Distress and AOx3
Abdomen: Soft, Non Distended and Non Tender
Wound: Dressing in Place and Other (Subq drain serous, RLQ drain purulent)
--- NOTE | 2024-07-07 09:19 | W.PN.ID1 ---
Date of Service
Date of Service: July 07, 2024
Today's Communication
- c/w with zosyn - plan through 08/10
- c/w micafungin - plan through 08/10
- c/w tamiflu - 5 days
Assessment / Plan
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
E. coli bacteremia due to bowel perforation, abscess
S/p Exploratory laparotomy, lysis of adhesions, sigmoidectomy, creation of end-colostomy
Wound dehiscence
Ileus
Marked leukocytosis
LONG
Hx Recent right hip replacement
Influenza
- 06/07 blood cultures both with anaerobe - bacteroides - source bowel perforation; collection
- blood culture from 06/09 now also with a sensitive E coli
- repeat blood cultures x2 06/15 no growth to date
- 06/15 abscess cultures: Pseudomonas aeruginosa, E. coli and Eggerthella lenta
- 07/04 Influenza pcr positive
Recommendations:
- s/p Delayed primary subcutaneous closure of abdominal wall wound with local skin and subcutaneous advancement flaps 07/06
- c/w with zosyn - plan through 08/10
- c/w micafungin - plan through 08/10
- c/w tamiflu - 5 days
Follow white count and temperature curve.
Continue with supportive measures.
����������������������������������������������������������
Chief Complaint
-: Other (bowel perforation, secondary peritonitis)
Subjective / Review of Systems
afebrile
bp stable
'I feel ok'
no new complaints
Vital Signs / Physical Exam
Vital Signs
Vital Signs
Temp Pulse Resp BP Pulse Ox
97.7 F 66 16 142/73 95
07/07/24 07:17 07/07/24 07:17 07/07/24 07:17 07/07/24 08:31 07/07/24 07:17
Physical Exam
Constitutional: No Acute Distress and Chronically Ill
Cardiovascular: Regular Rate and S1/S2; Negative Murmur or Rub
Pulmonary: Clear and Symmetric; Negative Wheezes or Rales
Gastrointestinal: Soft, Non Tender, Non Distended and Normal Bowel Sounds
Skin: Warm and Dry; Negative Rash or Jaundice
Wound: Other (wound vac)
Neurological: Negative Awake (sleeping and not disturbed)
Psychological: Other
Lines: Other (drain with feculent appearing fluid)
Objective Data
Lab Data
Lab Results
07/07/24 04:39
07/07/24 04:39
PT 14.6 Sec (11.4-14.6) 06/07/24 14:37
INR 1.11 06/07/24 14:37
APTT 27.5 Sec (23.4-35.0) 06/07/24 14:37
Estimated Creat Clear 67 ml/min 07/07/24 04:39
Lactic Acid 1.9 mmol/L (0.7-2.0) 06/10/24 03:33
Total Bilirubin 0.6 mg/dl (0.2-1.3) 07/06/24 05:58
AST 50 U/L (14-36) H 07/06/24 05:58
ALT 48 U/L (0-35) H 07/06/24 05:58
Alkaline Phosphatase 177 U/L (38-126) H 07/06/24 05:58
Most recent labs reviewed.
Micro Results:
07/04/24 13:05 Influenza Types A & B (EVI) - Final
Nasal Swab Influenza A Positive, NAAT
06/30/24 14:30 Wound Culture - Final
Abscess Escherichia coli
Gram Stain - Final
06/16/24 15:50 Wound Culture - Final
Abdomen Escherichia coli
Gram Stain - Final
06/16/24 15:50 Anaerobic Culture - Final
Abdomen NO ANAEROBES ISOLATED
06/15/24 16:25 Body Fluid Culture - Final
Fluid Pseudomonas aeruginosa
Escherichia coli
Gram Stain - Final
06/15/24 16:25 Anaerobic Culture - Final
Abdomen Eggerthella lenta
06/14/24 12:56 Blood Culture - Final
Blood/Venous No Growth - Final Report
06/14/24 12:22 Blood Culture - Final
Blood/Venous No Growth - Final Report
06/14/24 09:05 Blood Culture - Final
Blood/Venous No Growth - Final Report
06/09/24 15:02 Blood Culture - Final
Blood/Venous Escherichia coli
Gram Stain - Final
06/07/24 10:27 Blood Culture - Final
Blood/Venous Bacteroides uniformis
Gram Stain - Final
06/07/24 10:26 Blood Culture - Final
Blood/Venous Bacteroides uniformis
Gram Stain - Final
06/09/24 12:09 Blood Culture - Final
Blood/Venous No Growth - Final Report
06/07/24 23:30 MRSA Screen - Final
Nose No Methicillin Resistant Staphylococcus aureus isolated.
06/07/24 10:27 Urine Culture - Final
Urine No Significant Growth
06/07/24 09:19 Influenza Types A & B (EVI) - Final
Nasal Swab Negative for Influenza A & B, NAAT
Negative results must be combined with clinical observations
and patient history.
Nucleic Acid Amplification test (NAAT)performed on the
[employer] platform.
--- NOTE | 2024-07-07 09:54 | W.PN.SURGUPD ---
Surgical Update
Surgical Update
Patient seen and examined.
Postoperative pain control.
No nausea.
Ostomy continues to function well.
AFVSS
ABD: Soft, nondistended, mild tenderness palpation
Right upper quadrant PRINCE -light serosanguineous fluid
Right lower quadrant PRINCE -purulent/green-tinged
Left IR drain -clear serous
Left-sided ostomy appliance in place, pink mucosa healthy, not edematous. Soft stool in appliance.
A/P: POD #1 status post delayed primary closure with local subcutaneous advancement flaps for coverage of fascial dehiscence
Incisions negative pressure dressing remains intact and clean
Maintain dressing for 7 days postop
Continue subcutaneous drain (right upper quadrant PRINCE) until dry
Recommend continued use of abdominal binder with activities but okay to leave off while resting or in bed.
Cleared to resume physical therapy and ambulation as tolerated
--- NOTE | 2024-07-07 10:55 | CM ---
Patient s/p surgery. Patient with new drains and family supports, pending PT/OT assessment. CM will continue to follow for discharge planning needs.
Plan; [facility] when medically appropriate.
[2024-07-07 11:53] VITALS: BP 136/68
[2024-07-07 11:53] LABS: Glucose - Point of Care 172 mg/dl (70-99)
[2024-07-07] MEDS: NOVOLOG FLEXPEN-MODERATE RESISTANCE SC (12:34)
[2024-07-07] MEDS: MYCAMINE 105 MG IV (13:07)
--- NOTE | 2024-07-07 14:27 | WOUNDNOTE ---
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
[2024-07-07 15:40] VITALS: BP 151/75
[2024-07-07 17:28] LABS: Glucose - Point of Care 239 mg/dl (70-99)
[2024-07-07] MEDS: NOVOLOG FLEXPEN-MODERATE RESISTANCE 3 UNITS SC (17:28)
[2024-07-07] MEDS: LOVENOX 40 MG SC (17:28)
[2024-07-07 19:27] VITALS: BP 157/81
[2024-07-07] MEDS: TYLENOL 650 MG PO (21:39)
[2024-07-07] MEDS: NEURONTIN 300 MG PO (21:39)
[2024-07-07] MEDS: PEPCID 20 MG PO (21:40)
[2024-07-07 21:58] LABS: Glucose - Point of Care 234 mg/dl (70-99)
[2024-07-07 23:36] VITALS: BP 138/76
[2024-07-08] MEDS: ZOSYN 100 IV ×5 (01:00→23:05)
--- NOTE | 2024-07-08 02:52 | W.PN.UPDATE ---
Update Note
Progress Note Update
RN reports urine frequency ovrnight (q 30min). No fever, or pain/burning. Noted blood when wiping and on bedsheet. unsure if vaginal or urethral. on zosyn and micafungin. Will check ua.
ua from 06/10 with +4 blood.
--- NOTE | 2024-07-08 03:06 | PTCARENOTE ---
Pt noted with increase frequency on urination this shift, also dark red blood noted with wiping. Pt offers no complaints of burning or pain with urination, remains afebrile. 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
[2024-07-08 04:57] LABS: Urine Albumin 2+ (Neg - Trace); Urine Bilirubin Negative (Negative); Urine Character Slightly Cloudy (Clear); Urine Color Yellow; Urine Glucose 1+ (Negative); Urine Ketone Negative (Negative); Urine Leukocyte Negative (Negative); Urine Nitrite Negative (Negative); Urine Occult Blood 4+ (Negative); Urine Urobilinogen Negative (Neg - 1+)
[2024-07-08 05:29] LABS: Urine Bacteria Few (Negative); Urine Red Blood Cell >100 /HPF (0-2); Urine White Cell 0-2 /HPF (0-5)
[2024-07-08 06:00] VITALS: BMI 21.9
[2024-07-08 07:13] VITALS: BP 159/77
[2024-07-08] MEDS: NEURONTIN 100 MG PO ×2 (07:59→17:33)
[2024-07-08] MEDS: COLACE 100 MG PO (07:59)
[2024-07-08] MEDS: TAMIFLU 75 MG PO ×2 (07:59→20:40)
[2024-07-08] MEDS: NORVASC 5 MG PO ×2 (07:59→20:40)
[2024-07-08] MEDS: LOPRESSOR 12.5 MG PO ×2 (07:59→20:39)
[2024-07-08 08:08] LABS: Glucose - Point of Care 112 mg/dl (70-99)
[2024-07-08] MEDS: NOVOLOG FLEXPEN-MODERATE RESISTANCE SC ×2 (08:08→16:16)
[2024-07-08 08:16] LABS: % Basophils 0.3 % (0-2); % Eosinophils 0.2 % (0-6); % Immature Granulocytes 4.4 % (0-0.5); % Lymphocytes 6.1 % (20.5-51.1); % Monocytes 5.4 % (1.7-9.3); % Neutrophils 83.6 % (42.2-75.2); Absolute Immature Granulocytes 0.6 10^3/uL (0-0.05); Absolute Lymphocytes 0.8 10^3/uL (1.2-3.4); Absolute Monocytes 0.7 10^3/uL (0.1-0.6); Absolute Neutrophils 10.5 10^3/uL (1.4-6.5); Hematocrit 25.1 % (37.0-47.0); Hemoglobin 8.4 g/dL (12.0-16.0); Mean Corp Hgb Conc. 33.5 g/dL (33.0-37.0); Mean Corpuscular Hgb 30.2 pg (27.0-31.0); Mean Corpuscular Volume 90.3 fL (81.0-99.0); Mean Platelet Volume 9.2 fL (7.4-10.4); Nucleated Red Blood Cells % 0 %; Platelet Count 449 10^3/uL (130-400); Red Blood Cell Count 2.78 10^6/uL (4.20-5.40); Red Cell Dist. Width 15.1 % (11.5-14.5); White Blood Cell Count 12.5 10^3/uL (4.8-10.8)
[2024-07-08 08:23] LABS: ALT (SGPT) 41 U/L (0-35); AST (SGOT) 38 U/L (14-36); Albumin 2.5 g/dl (3.5-5.0); Alkaline Phosphatase 175 U/L (38-126); Blood Urea Nitrogen 13 mg/dl (7-17); Calcium 8.2 mg/dl (8.4-10.2); Carbon Dioxide 28 mmol/L (22-30); Chloride 98 mmol/L (98-107); Estimated Creatinine Clearance 78 ml/min; Glucose 118 mg/dl (70-99); Magnesium 1.6 mg/dl (1.6-2.3); Potassium 3.2 mmol/L (3.5-5.1); Sodium 132 mmol/L (135-145); Total Bilirubin 0.6 mg/dl (0.2-1.3); Total Protein 5.4 g/dl (6.3-8.2); eGFR > 60.00
[2024-07-08] MEDS: KCL 40 MEQ PO (09:37)
--- NOTE | 2024-07-08 10:02 | W.PN.HOSP.TC ---
Today's Communication/Plan
-
Potentially repeat ab/pelvic CT per colorectal
Cont antibiotics and tamiflu
Cont regular diet and encourage PO intake
Replete K
Assessment / Plan
Assessment / Plan
Assessment and plan:
Acute sigmoid bowel perforation with acute surgical abdomen
Complicated by E. coli bacteremia due to bowel perforation, hepatic abscess, wound dehiscence
-Pt extubated on room air off TPN on 06/24 and advancing diet as tolerated
-Pain control with oxy and Tylenol
-Recommend ambulate twice daily with abdominal binder, recommend PT with discharged to [facility] if possible to help manage Vac
-repeat CT 06/29 reveals new formed abscess
-Cont with zosyn and micafungin through 08/10
-06/30 IR - adjusted L-sided drain, aspirated anterior right hepatic collection, perisplenic was not safely accessible
-OR for dehiscence closure on 07/06 - POD #2
-PT with ab binder, advance diet per colorectal
-Potentially rescan ab for intra-ab collections as WBC count still elevated at discretion of colorectal
-Continue to trend WBC and temp
Influenza A (+)
-Robitussin for cough, otherwise asymptomatic
-Tamiflu day 08/27
Increased urinary frequency overnight
-UA was sent by overnight coverage
-Patient denies any burning, UTI symptoms besides increased frequency
-UA no signs of UTI
Post op anemia
-No evidence of external bleeding
-Received 1 unit of blood on 06/26/2024
-Monitor CBC
Profound hypokalemia
-Replete as needed
Hypomagnesemia
-Repleted and resolved
Thrombocytosis
-Likely secondary to infx
-Monitor
LONG secondary to bowel perforation/infection
-Resolved
Hyponatremia
-Hypovolemic, encourage p.o. fluids
Mildly elevated LFTs
-Likely 2/2 recent surgeries/illness/hepatic abscess
-Monitor
Atrial fibrillation with rapid ventricular response
-New diagnosis found postoperatively.
-[id number] of 4 due to the age being greater than 75, female, hypertension
-Not currently on anticoagulation due to recent abdominal surgery, anemia, and wound VAC
-Patient is now back in sinus rhythm
-Started on metoprolol 12.5 twice daily currently stable
Essential hypertension
-Started on amlodipine 5 mg now twice daily instead of once daily per home meds
-Stable
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
-Matheus removed
-PT OT
-Appreciate Ortho
-Interstitial lung disease with bronchiectasis
-Past medical history of spontaneous pneumothorax
DVT prophylaxis: Subcu Lovenox
Full code
Acute rehab once medically/surgically stable appreciate lower in supervisor input.
Anticipated Discharge: > 48 hours
Subjective/Interval History
-
Date of Service: July 08, 2024
Objective Data
-
Labs:
Laboratory Results
07/08/24
06:55
WBC 12.5 H
Hgb 8.4 L
Hct 25.1 L
Plt Count 449 H
Sodium 132 L
Potassium 3.2 L
Chloride 98
Carbon Dioxide 28
BUN 13
Creatinine 0.6
Glucose 118 H
Calcium 8.2 L
Total Bilirubin 0.6
AST 38 H
ALT 41 H
Alkaline Phosphatase 175 H
Vital Signs:
Vital Signs
Temp Pulse Resp BP Pulse Ox
97.6 F 63 16 159/77 95
07/08/24 07:13 07/08/24 07:13 07/08/24 07:13 07/08/24 07:13 07/08/24 07:13
I&O
07/07/24 07/08/24 07/09/24
06:59 06:59 06:59
Intake Total 1000 / 1000 2079 / 2079
Output Total 623 / 623 943 / 943
Balance 377 / 377 1137 / 1137
Review of Systems
-
History Source: Patient
Respiratory: Reports No Symptoms
Cardiac: Reports No Symptoms
Abdomen/GI: Reports No Symptoms
Genitourinary: Reports Frequency; Denies Dysuria, Urgency, Bleeding or UTI
Neuro: Reports No Symptoms
Physical Exam
-
General: No Apparent Distress and Comfortable
HEENT: Normocephalic
Respiratory: Clear to Auscultation
Cardiac: Regular Rhythm and S1/S2
GI: Soft, Nondistended, Normal Bowel Sounds, Tender, Ostomy and Other (No signs of infx around ostomy or drain tubes)
Musculoskeletal: No Edema
Skin: Warm
Neuro: AO x 3
Psych: Calm
--- NOTE | 2024-07-08 10:04 | CM ---
Patient seen at bedside
s/p surgery. Patient with drains, ADELA
PT/OT rec acute rehab
PLAN: [facility] when medically appropriate.
[2024-07-08 11:47] LABS: Glucose - Point of Care 259 mg/dl (70-99)
[2024-07-08] MEDS: NOVOLOG FLEXPEN-MODERATE RESISTANCE 5 UNITS SC (12:32)
[2024-07-08] MEDS: MYCAMINE 105 MG IV (13:08)
[2024-07-08] MEDS: OMNIPAQUE 50 ML PO (13:08)
[2024-07-08 13:15] VITALS: BP 154/72; PULSE 84; O2SAT 96
--- NOTE | 2024-07-08 13:56 | W.PN.GS2 ---
Addendum entered and electronically signed by Robi Kay MD 07/08/24 14:10:
Patient seen in follow-up with surgical [employer]. Overall patient appears to be doing satisfactorily.
Continues with cough but no worse. Denies shortness of breath.
Denies abdominal pain other than incisional discomfort which is controlled.
Ostomy functional.
AFVSS
NAD AAOx3
ABD: Soft, nondistended, minimal incisional tenderness.
Left-sided ostomy pink and with air/stool in the appliance.
Right upper quadrant PRINCE light SSF
Right lower quadrant -purulent
IR drain serous
Adela dressing in place but not holding suction. -Revised/reinforced dressing until suction was held.
A/P: POD #2 status post delayed primary closure with local subcutaneous advancement flaps for coverage of fascial dehiscence with small bowel exposure.
Adjusted Adela dressing and now appears to be holding suction -will continue to monitor
--First wound dressing change 7 days postop assuming Adela dressing lasts
-- Maintain subcutaneous drain in right upper quadrant until consistently 15 to 20mL/daily for multiple consecutive days
-- Encourage progressive ambulation and time up out of bed with physical therapy and nursing assistance.
-- Utilize abdominal binder
Original Note:
Today's Communication / Plan
-
Continue ADELA dressing
Assessment / Plan
-
79 yo female Status post Right total hip replacement 05/30/24 presenting with perforated bowel on 06/07/2024 OR for ex lap, sigmoidectomy with end colostomy creation for perforated stercoral colitis; extensive washout ~9L for feculent peritonitis with
subsequent dehiscence
POD #2 status post delayed primary closure with local subcutaneous advancement flaps for coverage of fascial dehiscence
Incisions negative pressure dressing remains intact and clean
Plan:
Continue regular diet
ABX as per ID
Maintain ADELA dressing for 7 days postop
Continue subcutaneous drain (right upper quadrant PRINCE) until dry
Recommend continued use of abdominal binder with activities but okay to leave off while resting or in bed.
Cleared to resume physical therapy and ambulation as tolerated
Subjective Data
-
Date of Service: July 08, 2024
Patient seen and examined at bedside with Dr. Kay. Denies n/v. Tolerating diet. Eager to get out of bed and ambulate. Denies pain.
Objective Data
-
Intake and Output
07/07/24 07/08/24 07/09/24
06:59 06:59 06:59
Intake Total 1000 / 1000 2080 / 2080
Output Total 623 / 623 943 / 943
Balance 377 / 377 1137 / 1137
Intake:
Oral fluids 480 / 480 1440 / 1440
IV fluids (Total) 300 / 300 75 / 75
Normosol 300 / 300
IV piggybacks 200 / 200 545 / 545
Amount instilled into Drain (
Total)
Left Lower Abdomen Placed in IR
Output:
Liquid stool amount 100 / 100 400 / 400
Colostomy 100 / 100 400 / 400
Drain Output (Total) 48 / 48 93 / 93
Left Lower Abdomen Placed in IR
Right Lower Abdomen Darius- 6 / 30 / 30
[place]
Right Upper Abdomen Darius- 35 / 35 40 / 40
[place] A
Urine, Voided 475 / 475 450 / 450
Other:
Number of approximated MODERATE 3 6
amounts of urine
Number of approximated LARGE 3
amounts of urine
How many times incontinent 1
MODERATE amount urine
How many times incontinent 1
SATURATED amount urine
Vital Signs
Temp Pulse Resp BP Pulse Ox
97.6 F 63 16 159/77 95
07/08/24 07:13 07/08/24 07:13 07/08/24 07:13 07/08/24 07:13 07/08/24 07:13
Lab Results
07/08/24 06:55
07/08/24 06:55
Calcium 8.2 mg/dl (8.4-10.2) L 07/08/24 06:55
Phosphorus 3.1 mg/dl (2.5-4.5) 07/05/24 04:33
Magnesium 1.6 mg/dl (1.6-2.3) 07/08/24 06:55
Total Bilirubin 0.6 mg/dl (0.2-1.3) 07/08/24 06:55
AST 38 U/L (14-36) H 07/08/24 06:55
ALT 41 U/L (0-35) H 07/08/24 06:55
Alkaline Phosphatase 175 U/L (38-126) H 07/08/24 06:55
Total Protein 5.4 g/dl (6.3-8.2) L 07/08/24 06:55
Albumin 2.5 g/dl (3.5-5.0) L 07/08/24 06:55
Physical Exam
-
NAD
ABD soft, nt, stoma pink/viable with stool output
Midline ADELA dressing intact, reinforced
LLQ drain with SSF, RUQ drain with thick green drainage, RLQ drain SSF (dressings changed)
[2024-07-08] MEDS: BENADRYL 50 MG IV (14:12)
[2024-07-08] MEDS: SOLU-CORTEF 200 MG IV (14:25)
--- NOTE | 2024-07-08 14:41 | W.PN.CRS1 ---
Addendum entered and electronically signed by Niranjan Arizmendi MD 07/08/24 16:39:
The PA's note was reviewed and I agree with the note.
Original Note:
Today's Communication / Plan
-
CT A/P to reassess collections
Assessment/Plan
-
79-year-old female with PMH of HTN, HLD, interstitial lung disease with bronchiectasis, history of pneumonia multiple times, history of spontaneous pneumothorax x 2 who presents 8 days after right hip replacement; 4 days prior to admission, she
started to develop abdominal pain and nausea with decreased bowel function; the abdominal pain and nausea/vomiting continue to worsen; she denies any fevers, chest pain, or urinary symptoms; she does have dyspnea due to the abdominal pain; her last
colonoscopy was 2 years ago which she reports as normal (report not available to me); in the ED, her WBC was 9.3, CR 1.5 and a CTAP was done which shows moderate free air, extraluminal stool adjacent to the mid sigmoid colon with concern of sigmoid
perforation possibly due to diverticulitis
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
- extubated and pressors weaned off by POD 1; initially oliguric, but UOP recovered; A-fib with RVR, stabilized on Amio
- 06/12 CT - c/f subhepatic abscess, d/w [place] and felt that it more likely represents free fluid; remainder post-op changes
- 06/13 opened enrique at inferior midline for murky drainage
- 06/15 mild fascial dehiscence noted; CT -subhepatic abscess increased, fluid along the left gutter; s/p IR drain of subhepatic abscess�20 mL pus
- 06/16 s/p IR drain of left gutter�35 mL of turbid fluid
- 06/18 complete fascial dehiscence
- 06/20 vac placed with white sponge at 75mmHg
- 06/29 wbc 11.6, CT - evolving collections in anterior right hepatic lobe (8x4x1), post right hepatic lobe ([id number]), perisplenic ([id number]), left paracolic gutter ([id number]) and right mid-abdomen (1.5x2x1.5cm)
- 06/30 wbc 12.2, IR - adjusted L-sided drain, aspirated anterior right hepatic collection, perisplenic was not safely accessible
- 07/01 vac replaced, wbc 15
- 07/07 - flap closure
WBC 12.5 (12.9), Hgb 8.4 (7.5)
Vitals normal
- Continue regular
- Lovenox DVT prophylaxis, TEDs/SCDs in place
- Intra-abdominal infections
� Appreciate ID, continue IV Zosyn and micafungin
-RLQ drain in pelvis with purulent, continue
-Due to still elevated WBC, will re-scan to reassess fluid collections. IV dye prep.
- Continue subq drain under wound flap
� OOB per Dr. Kay
- Dispo: eventual rehab
� Pain control with tylenol, oxycodone, dilaudid
� Appreciate hospitalist
Subjective Data
Procedure
06/07/2024- Exploratory laparotomy, lysis of his adhesions, sigmoidectomy, creation of end colostomy on
07/06/2024- Delayed primary closure of abdominal wall wound
Subjective Data
Date of Service: July 08, 2024
Patient states she has no complaints. She is tolerating a diet. Her pain is controlled.
Objective Data
-
Vital Signs
Temp Pulse Resp BP Pulse Ox
97.6 F 63 16 159/77 95
07/08/24 07:13 07/08/24 07:13 07/08/24 07:13 07/08/24 07:13 07/08/24 07:13
Intake & Output
03/20/25 03/21/25 03/22/25
06:59 06:59 06:59
Intake Total 1000 / 1000 2080 / 2080
Output Total 623 / 623 943 / 943
Balance 377 / 377 1137 / 1137
Intake:
Oral fluids 480 / 480 1440 / 1440
IV fluids (Total) 300 / 300 75 / 75
Normosol 300 / 300
IV piggybacks 200 / 200 545 / 545
Amount instilled into Drain (
Total)
Left Lower Abdomen Placed in IR
Output:
Liquid stool amount 100 / 100 400 / 400
Colostomy 100 / 100 400 / 400
Drain Output (Total) 48 / 48 /
Left Lower Abdomen Placed in IR
Right Lower Abdomen Darius- 6 / 6 30 / 30
[place]
Right Upper Abdomen Darius- 35 / 35 40 / 40
[place] A
Urine, Voided 475 / 475 450 / 450
Other:
Number of approximated MODERATE 3 6
amounts of urine
Number of approximated LARGE 3
amounts of urine
How many times incontinent 1
MODERATE amount urine
How many times incontinent 1
SATURATED amount urine
Lab Results
07/08/24 06:55
07/08/24 06:55
Physical Exam
-
General: No Acute Distress and AOx3
Abdomen: Soft, Non Distended, Tender (mild around incision) and Other (LLQ pelvic drain purulent green, subq drain serous)
Skin: Warm and Dry
[2024-07-08 15:30] VITALS: BP 136/84
[2024-07-08 16:16] LABS: Glucose - Point of Care 71 mg/dl (70-99)
--- NOTE | 2024-07-08 16:43 | W.PN.ID1 ---
Date of Service
Date of Service: July 08, 2024
Today's Communication
- will follow up repeat CT abd/pelvis ordered by surgery team
- c/w with zosyn - plan through 08/10
- c/w micafungin - plan through 08/10
- c/w tamiflu - 5 days
Assessment / Plan
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
E. coli bacteremia due to bowel perforation, abscess
S/p Exploratory laparotomy, lysis of adhesions, sigmoidectomy, creation of end-colostomy
Wound dehiscence
Ileus
Marked leukocytosis
LONG
Hx Recent right hip replacement
Influenza
- 06/07 blood cultures both with anaerobe - bacteroides - source bowel perforation; collection
- blood culture from 06/09 now also with a sensitive E coli
- repeat blood cultures x2 06/15 no growth to date
- 06/15 abscess cultures: Pseudomonas aeruginosa, E. coli and Eggerthella lenta
- 07/04 Influenza pcr positive
Recommendations:
- s/p Delayed primary subcutaneous closure of abdominal wall wound with local skin and subcutaneous advancement flaps 07/06
- will follow up repeat CT abd/pelvis ordered by surgery team
- c/w with zosyn - plan through 08/10
- c/w micafungin - plan through 08/10
- c/w tamiflu - 5 days
Follow white count and temperature curve.
Continue with supportive measures.
����������������������������������������������������������
Chief Complaint
-: Other (bowel perforation, secondary peritonitis)
Subjective / Review of Systems
afebrile
bp stable
some urinary frequency reported
Vital Signs / Physical Exam
Vital Signs
Vital Signs
Temp Pulse Resp BP Pulse Ox
98.3 F 91 16 136/84 98
07/08/24 15:30 07/08/24 15:30 07/08/24 15:30 07/08/24 15:30 07/08/24 15:30
Physical Exam
Constitutional: No Acute Distress
Cardiovascular: Regular Rate and S1/S2
Pulmonary: Symmetric and Non Labored
Gastrointestinal: Non Distended
Skin: Dry; Negative Rash or Jaundice
Neurological: Awake
Objective Data
Lab Data
Lab Results
07/08/24 06:55
07/08/24 06:55
PT 14.6 Sec (11.4-14.6) 06/07/24 14:37
INR 1.11 06/07/24 14:37
APTT 27.5 Sec (23.4-35.0) 06/07/24 14:37
Estimated Creat Clear 78 ml/min 07/08/24 06:55
Lactic Acid 1.9 mmol/L (0.7-2.0) 06/10/24 03:33
Total Bilirubin 0.6 mg/dl (0.2-1.3) 07/08/24 06:55
AST 38 U/L (14-36) H 07/08/24 06:55
ALT 41 U/L (0-35) H 07/08/24 06:55
Alkaline Phosphatase 175 U/L (38-126) H 07/08/24 06:55
Most recent labs reviewed.
Micro Results:
07/04/24 13:05 Influenza Types A & B (EVI) - Final
Nasal Swab Influenza A Positive, NAAT
06/30/24 14:30 Wound Culture - Final
Abscess Escherichia coli
Gram Stain - Final
06/16/24 15:50 Wound Culture - Final
Abdomen Escherichia coli
Gram Stain - Final
06/16/24 15:50 Anaerobic Culture - Final
Abdomen NO ANAEROBES ISOLATED
06/15/24 16:25 Body Fluid Culture - Final
Fluid Pseudomonas aeruginosa
Escherichia coli
Gram Stain - Final
06/15/24 16:25 Anaerobic Culture - Final
Abdomen Eggerthella lenta
06/14/24 12:56 Blood Culture - Final
Blood/Venous No Growth - Final Report
06/14/24 12:22 Blood Culture - Final
Blood/Venous No Growth - Final Report
06/14/24 09:05 Blood Culture - Final
Blood/Venous No Growth - Final Report
06/09/24 15:02 Blood Culture - Final
Blood/Venous Escherichia coli
Gram Stain - Final
06/07/24 10:27 Blood Culture - Final
Blood/Venous Bacteroides uniformis
Gram Stain - Final
06/07/24 10:26 Blood Culture - Final
Blood/Venous Bacteroides uniformis
Gram Stain - Final
06/09/24 12:09 Blood Culture - Final
Blood/Venous No Growth - Final Report
06/07/24 23:30 MRSA Screen - Final
Nose No Methicillin Resistant Staphylococcus aureus isolated.
06/07/24 10:27 Urine Culture - Final
Urine No Significant Growth
06/07/24 09:19 Influenza Types A & B (EVI) - Final
Nasal Swab Negative for Influenza A & B, NAAT
Negative results must be combined with clinical observations
and patient history.
Nucleic Acid Amplification test (NAAT)performed on the
[employer] platform.
[2024-07-08] MEDS: LOVENOX 40 MG SC (17:33)
[2024-07-08] MEDS: COLACE PO ×2 (20:39→20:46)
[2024-07-08 21:36] LABS: Glucose - Point of Care 249 mg/dl (70-99)
[2024-07-08] MEDS: NEURONTIN 300 MG PO (22:56)
[2024-07-08] MEDS: PEPCID 20 MG PO (22:56)
[2024-07-08] MEDS: ROBITUSSIN 100 MG PO (23:01)
[2024-07-08 23:04] VITALS: BP 160/83
[2024-07-09] MEDS: TYLENOL 650 MG PO (00:14)
[2024-07-09 04:32] LABS: % Basophils 0.2 % (0-2); % Eosinophils 0.1 % (0-6); % Immature Granulocytes 4.6 % (0-0.5); % Lymphocytes 8.4 % (20.5-51.1); % Monocytes 5.9 % (1.7-9.3); % Neutrophils 80.8 % (42.2-75.2); Absolute Immature Granulocytes 0.6 10^3/uL (0-0.05); Absolute Monocytes 0.7 10^3/uL (0.1-0.6); Hemoglobin 7.5 g/dL (12.0-16.0); Mean Corp Hgb Conc. 34.1 g/dL (33.0-37.0); Mean Corpuscular Hgb 30.1 pg (27.0-31.0); Mean Corpuscular Volume 88.4 fL (81.0-99.0); Mean Platelet Volume 9.3 fL (7.4-10.4); Nucleated Red Blood Cells % 0 %; Platelet Count 421 10^3/uL (130-400); Red Blood Cell Count 2.49 10^6/uL (4.20-5.40); Red Cell Dist. Width 14.7 % (11.5-14.5); White Blood Cell Count 12.4 10^3/uL (4.8-10.8)
[2024-07-09 04:43] LABS: ALT (SGPT) 39 U/L (0-35); AST (SGOT) 34 U/L (14-36); Albumin 2.4 g/dl (3.5-5.0); Alkaline Phosphatase 176 U/L (38-126); Blood Urea Nitrogen 17 mg/dl (7-17); Calcium 8.2 mg/dl (8.4-10.2); Carbon Dioxide 26 mmol/L (22-30); Chloride 102 mmol/L (98-107); Estimated Creatinine Clearance 67 ml/min; Glucose 141 mg/dl (70-99); Magnesium 1.5 mg/dl (1.6-2.3); Potassium 2.8 mmol/L (3.5-5.1); Sodium 132 mmol/L (135-145); Total Bilirubin 0.5 mg/dl (0.2-1.3); Total Protein 5.2 g/dl (6.3-8.2); eGFR > 60.00
[2024-07-09] MEDS: ZOSYN 100 IV ×4 (05:02→23:25)
[2024-07-09] MEDS: FLUSH (NSS) 2 FLUSH IV ×3 (05:04→23:26)
[2024-07-09 06:00] VITALS: BMI 22.0
[2024-07-09] MEDS: KCL 40 MEQ PO (06:00)
[2024-07-09] MEDS: MAGNESIUM SULFATE 50 IV (06:00)
[2024-07-09 07:11] LABS: Glucose - Point of Care 118 mg/dl (70-99)
[2024-07-09 07:12] VITALS: BP 156/81
[2024-07-09] MEDS: NOVOLOG FLEXPEN-MODERATE RESISTANCE SC ×2 (07:16→17:01)
[2024-07-09] MEDS: KCL 270 MEQ IV (07:43)
[2024-07-09] MEDS: COLACE 100 MG PO ×2 (07:44→19:53)
[2024-07-09] MEDS: NORVASC 5 MG PO ×2 (07:44→19:53)
[2024-07-09] MEDS: NEURONTIN 100 MG PO ×2 (07:44→17:01)
[2024-07-09] MEDS: LOPRESSOR 12.5 MG PO ×2 (07:44→19:52)
[2024-07-09] MEDS: TAMIFLU 75 MG PO (07:44)
--- NOTE | 2024-07-09 11:06 | W.PN.ID1 ---
Date of Service
Date of Service: July 09, 2024
Today's Communication
Continue antibiotics.
Assessment / Plan
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
E. coli bacteremia due to bowel perforation, abscess
S/p Exploratory laparotomy, lysis of adhesions, sigmoidectomy, creation of end-colostomy
Wound dehiscence
Ileus
Marked leukocytosis
LONG
Hx Recent right hip replacement
Influenza
- 06/07 blood cultures both with anaerobe - bacteroides - source bowel perforation; collection
- blood culture from 06/09 now also with a sensitive E coli
- repeat blood cultures x2 06/15 no growth to date
- 06/15 abscess cultures: Pseudomonas aeruginosa, E. coli and Eggerthella lenta
- 07/04 Influenza pcr positive
Recommendations:
- s/p Delayed primary subcutaneous closure of abdominal wall wound with local skin and subcutaneous advancement flaps 07/06
- Repeat CT abd/pelvis with stable or improving abscess size.
- c/w with zosyn - plan through 08/10
- c/w micafungin - plan through 08/10
- c/w tamiflu - 5 days
Follow white count and temperature curve.
Continue with supportive measures.
����������������������������������������������������������
Chief Complaint
-: Other (bowel perforation, secondary peritonitis)
Subjective / Review of Systems
Review of Systems: No Fever and No Chills
Vital Signs / Physical Exam
Vital Signs
Vital Signs
Temp Pulse Resp BP Pulse Ox
97.7 F 65 17 156/81 96
07/09/24 07:12 07/09/24 07:12 07/09/24 07:12 07/09/24 07:12 07/09/24 07:12
Physical Exam
Constitutional: No Acute Distress, Comfortable and Chronically Ill
Eyes: Sclera Anicteric
Cardiovascular: Regular Rate and S1/S2
Pulmonary: Symmetric and Non Labored
Gastrointestinal: Non Distended and Other (Ostomy in place. PRINCE x 2.)
Skin: Dry; Negative Rash or Jaundice
Wound: Other (Abdominal wound dressed.)
Neurological: Awake
Psychological: Calm
Objective Data
Lab Data
Lab Results
07/09/24 04:12
PT 14.6 Sec (11.4-14.6) 06/07/24 14:37
INR 1.11 06/07/24 14:37
APTT 27.5 Sec (23.4-35.0) 06/07/24 14:37
Estimated Creat Clear 67 ml/min 07/09/24 04:12
Lactic Acid 1.9 mmol/L (0.7-2.0) 06/10/24 03:33
Total Bilirubin 0.5 mg/dl (0.2-1.3) 07/09/24 04:12
AST 34 U/L (14-36) 07/09/24 04:12
ALT 39 U/L (0-35) H 07/09/24 04:12
Alkaline Phosphatase 176 U/L (38-126) H 07/09/24 04:12
Most recent labs reviewed.
Micro Results:
07/04/24 13:05 Influenza Types A & B (EVI) - Final
Nasal Swab Influenza A Positive, NAAT
06/30/24 14:30 Wound Culture - Final
Abscess Escherichia coli
Gram Stain - Final
06/16/24 15:50 Wound Culture - Final
Abdomen Escherichia coli
Gram Stain - Final
06/16/24 15:50 Anaerobic Culture - Final
Abdomen NO ANAEROBES ISOLATED
06/15/24 16:25 Body Fluid Culture - Final
Fluid Pseudomonas aeruginosa
Escherichia coli
Gram Stain - Final
06/15/24 16:25 Anaerobic Culture - Final
Abdomen Eggerthella lenta
06/14/24 12:56 Blood Culture - Final
Blood/Venous No Growth - Final Report
06/14/24 12:22 Blood Culture - Final
Blood/Venous No Growth - Final Report
06/14/24 09:05 Blood Culture - Final
Blood/Venous No Growth - Final Report
06/09/24 15:02 Blood Culture - Final
Blood/Venous Escherichia coli
Gram Stain - Final
06/07/24 10:27 Blood Culture - Final
Blood/Venous Bacteroides uniformis
Gram Stain - Final
06/07/24 10:26 Blood Culture - Final
Blood/Venous Bacteroides uniformis
Gram Stain - Final
06/09/24 12:09 Blood Culture - Final
Blood/Venous No Growth - Final Report
06/07/24 23:30 MRSA Screen - Final
Nose No Methicillin Resistant Staphylococcus aureus isolated.
06/07/24 10:27 Urine Culture - Final
Urine No Significant Growth
06/07/24 09:19 Influenza Types A & B (EVI) - Final
Nasal Swab Negative for Influenza A & B, NAAT
Negative results must be combined with clinical observations
and patient history.
Nucleic Acid Amplification test (NAAT)performed on the
[employer] platform.
[2024-07-09 11:28] LABS: Glucose - Point of Care 381 mg/dl (70-99)
[2024-07-09] MEDS: NOVOLOG FLEXPEN-MODERATE RESISTANCE 9 UNITS SC (11:32)
--- NOTE | 2024-07-09 11:39 | W.PN.GS2 ---
Addendum entered and electronically signed by Domingo Hernandez MD 07/09/24 13:41:
I saw and examined the patient.
The Recycle Driver's note was reviewed and I agree with the note.
Comment: Juve reg diet, pain controlled. Working with PT. Stoma functioning. Right lower drain green and purulent. Other drains ss. Adela dressing with air leak - fixed with reinforcement. WBC 12.5-->12.4. Hb 7.5, no tachycardia (on beta blockers),
normotensive. Cont current mgmt.
Original Note:
Today's Communication / Plan
-
Continue drains
Continue ABX
Assessment / Plan
-
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 Went to OR on 06/07/2024 for ex lap, sigmoidectomy with end colostomy creation for perforated stercoral colitis; extensive
washout ~9L for feculent peritonitis with subsequent dehiscence/evisceration
IR drain to left abdomen: minimal SSF
Right sided lower abd drain remains purulent, right upper drain (SQ space) with SSF
CT from 07/08 with staple to improved abdominal collections
POD #3 status post delayed primary closure with local subcutaneous advancement flaps for coverage of fascial dehiscence
Incisions negative pressure dressing remains intact and clean, reinforced edges
WBC elevated but stable
Hypokalemia being managed by primary service
Plan:
Continue regular diet
ABX as per ID, PICC in place for extended course of IV abx
Maintain ADELA dressing for 7 days postop
Continue subcutaneous drain (right upper quadrant PRINCE) until dry
Recommend continued use of abdominal binder with activities but okay to leave off while resting or in bed.
PT/OT following, will likely need rehab
Analgesics as needed
Lovenox and SCDs for VTE ppx
Subjective Data
-
Date of Service: July 09, 2024
Patient seen and examined at bedside with Dr. Hernandez. Denies n/v. tolerating diet. Minimal pain. Was oob with PT yesterday.
Objective Data
-
Intake and Output
07/08/24 07/09/24 07/10/24
06:59 06:59 06:59
Intake Total 2079 / 2079 1950 / 1950
Output Total 943 / 943 465 / 465
Balance 1137 / 1137 1485 / 1485
Intake:
Oral fluids 1440 / 1440 1740 / 1740
IV fluids (Total) 75 / 75
IV piggybacks 545 / 545 200 / 200
Amount instilled into Drain (
Total)
Left Lower Abdomen Placed in IR
Output:
Liquid stool amount 400 / 400 400 / 400
Colostomy 400 / 400 400 / 400
Drain Output (Total) 65 / 65
Left Lower Abdomen Placed in IR
Right Lower Abdomen Darius- 30 / 30
[place]
Right Upper Abdomen Darius- 40 / 40 35 / 35
[place] A
Urine, Voided 450 / 450
Other:
Number of approximated MODERATE 6
amounts of urine
Number of approximated LARGE 3 4
amounts of urine
Vital Signs
Temp Pulse Resp BP Pulse Ox
97.7 F 65 17 156/81 96
07/09/24 07:12 07/09/24 07:12 07/09/24 07:12 07/09/24 07:12 07/09/24 07:12
Lab Results
07/09/24 04:12
Calcium 8.2 mg/dl (8.4-10.2) L 07/09/24 04:12
Phosphorus 3.1 mg/dl (2.5-4.5) 07/05/24 04:33
Magnesium 1.5 mg/dl (1.6-2.3) L 07/09/24 04:12
Total Bilirubin 0.5 mg/dl (0.2-1.3) 07/09/24 04:12
AST 34 U/L (14-36) 07/09/24 04:12
ALT 39 U/L (0-35) H 07/09/24 04:12
Alkaline Phosphatase 176 U/L (38-126) H 07/09/24 04:12
Total Protein 5.2 g/dl (6.3-8.2) L 07/09/24 04:12
Albumin 2.4 g/dl (3.5-5.0) L 07/09/24 04:12
Physical Exam
-
NAD
ABD soft, nt, stoma pink/viable with stool output
Midline ADELA dressing intact, reinforced
LLQ drain with SSF, RLQ drain with thick green drainage, RUQ drain SSF
[2024-07-09] MEDS: MYCAMINE 105 MG IV (12:31)
[2024-07-09 13:33] LABS: Blood Urea Nitrogen 16 mg/dl (7-17); Calcium 8.5 mg/dl (8.4-10.2); Carbon Dioxide 27 mmol/L (22-30); Chloride 102 mmol/L (98-107); Estimated Creatinine Clearance 67 ml/min; Glucose 105 mg/dl (70-99); Potassium 3.7 mmol/L (3.5-5.1); Sodium 134 mmol/L (135-145); eGFR > 60.00
--- NOTE | 2024-07-09 14:33 | W.PN.HOSP.TC ---
Today's Communication/Plan
-
Continue current management
OOB as possible
Assessment / Plan
Assessment / Plan
Assessment and plan:
Acute sigmoid bowel perforation with acute surgical abdomen
Complicated by E. coli bacteremia due to bowel perforation, hepatic abscess, wound dehiscence
-Pt extubated on room air off TPN on 06/24 and advancing diet as tolerated
-Pain control with oxy and Tylenol
-Recommend ambulate twice daily with abdominal binder, recommend PT with discharged to [facility] if possible to help manage Vac
-repeat CT 06/29 reveals new formed abscess
-Cont with zosyn and micafungin through 08/10
-06/30 IR - adjusted L-sided drain, aspirated anterior right hepatic collection, perisplenic was not safely accessible
-OR for dehiscence closure on 07/06 - POD #3
-PT with ab binder, advance diet per colorectal
-Continue to trend WBC and temp
Influenza A (+)
-Robitussin for cough, otherwise asymptomatic
-Tamiflu day 09/27
Increased urinary frequency overnight
-UA was sent by overnight coverage
-Patient denies any burning, UTI symptoms besides increased frequency
-UA no signs of UTI
Post op anemia
-No evidence of external bleeding
-Received 1 unit of blood on 06/26/2024
-Monitor CBC
Profound hypokalemia
-Replete as needed
Hypomagnesemia
-Repleted and resolved
Thrombocytosis
-Likely secondary to infx
-Monitor
LONG secondary to bowel perforation/infection
-Resolved
Hyponatremia
-Hypovolemic, encourage p.o. fluids
Mildly elevated LFTs
-Likely 2/2 recent surgeries/illness/hepatic abscess
-Monitor
Atrial fibrillation with rapid ventricular response
-New diagnosis found postoperatively.
-[id number] of 4 due to the age being greater than 75, female, hypertension
-Discussed with cardiology who feels this was a transient event, No need for long-term AC
Essential hypertension
-Started on amlodipine 5 mg now twice daily instead of once daily per home meds
-Stable
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
-[place] removed
-PT OT
-Appreciate Ortho
-Interstitial lung disease with bronchiectasis
-Past medical history of spontaneous pneumothorax
DVT prophylaxis: Subcu Lovenox
Full code
Acute rehab once medically/surgically stable appreciate robotics technologist input.
Anticipated Discharge: > 48 hours
Subjective/Interval History
-
Date of Service: July 09, 2024
Seen and examined at bedside. No acute events reported overnight. AFVSS this
Remains with mild leukocytosis. CT A/P yesterday with stable to improved abscesses
Denies any new complaints today. States she feels well
Objective Data
-
Labs:
Laboratory Results
07/09/24 07/09/24
04:12 12:08
WBC 12.4 H
Hgb 7.5 L
Hct 22.0 L
Plt Count 421 H
Sodium 132 L 134 L
Potassium 2.8 L 3.7 D
Chloride 102 102
Carbon Dioxide 26 27
BUN 17 16
Creatinine 0.7 0.7
Glucose 141 H 105 H
Calcium 8.2 L 8.5
Total Bilirubin 0.5
AST 34
ALT 39 H
Alkaline Phosphatase 176 H
Vital Signs:
Vital Signs
Temp Pulse Resp BP Pulse Ox
97.7 F 65 17 156/81 96
07/09/24 07:12 07/09/24 07:12 07/09/24 07:12 07/09/24 07:12 07/09/24 07:12
I&O
07/08/24 07/09/2407/10/25
06:59 06:59 06:59
Intake Total 2079 / 1949
Output Total 943 / 943 465 / 465
Balance 1137 / 1137 1485 / 1485
Review of Systems
-
History Source: Patient
All other systems: Reviewed and negative
Physical Exam
-
General: Well Developed, No Apparent Distress and Comfortable
HEENT: Normocephalic, Atraumatic and Moist Mucous Membranes
Respiratory: Clear to Auscultation and Non Labored Respirations
Cardiac: Regular Rhythm and S1/S2; Negative Murmur, Rub or Gallop
GI: Soft, Nontender, Nondistended, Normal Bowel Sounds, Ostomy and Other (PRINCE drain in RLQ and RUQ)
Musculoskeletal: No Clubbing, No Cyanosis and No Edema
Skin: Warm, Dry and Normal Turgor; Negative Rash
Neuro: AO x 3 and Nonfocal/Grossly Intact
Psych: Calm
Data Reviewed
-
Labs: Labs Reviewed by me and Discussed with Patient
[2024-07-09 16:56] LABS: Glucose - Point of Care 124 mg/dl (70-99)
[2024-07-09] MEDS: LOVENOX 40 MG SC (17:01)
[2024-07-09 21:41] LABS: Glucose - Point of Care 215 mg/dl (70-99)
[2024-07-09] MEDS: NEURONTIN 300 MG PO (22:11)
[2024-07-09] MEDS: PEPCID 20 MG PO (22:12)
[2024-07-09] MEDS: ROBITUSSIN 100 MG PO (22:12)
[2024-07-09 23:00] VITALS: BP 171/85
[2024-07-10 02:02] VITALS: BP 160/92
[2024-07-10 04:41] VITALS: BMI 21.5
[2024-07-10] MEDS: ZOSYN 100 IV ×4 (05:56→23:18)
[2024-07-10] MEDS: FLUSH (NSS) 2 FLUSH IV (05:56)
[2024-07-10 06:39] LABS: % Basophils 0.4 % (0-2); % Eosinophils 0.2 % (0-6); % Immature Granulocytes 4.5 % (0-0.5); % Lymphocytes 6.9 % (20.5-51.1); % Monocytes 5.4 % (1.7-9.3); % Neutrophils 82.6 % (42.2-75.2); Absolute Basophils 0.1 10^3/uL (0-0.2); Absolute Immature Granulocytes 0.6 10^3/uL (0-0.05); Absolute Lymphocytes 0.9 10^3/uL (1.2-3.4); Absolute Monocytes 0.7 10^3/uL (0.1-0.6); Absolute Neutrophils 11.2 10^3/uL (1.4-6.5); Hematocrit 24.9 % (37.0-47.0); Hemoglobin 8.5 g/dL (12.0-16.0); Mean Corp Hgb Conc. 34.1 g/dL (33.0-37.0); Mean Corpuscular Hgb 30.2 pg (27.0-31.0); Mean Corpuscular Volume 88.6 fL (81.0-99.0); Mean Platelet Volume 9.2 fL (7.4-10.4); Nucleated Red Blood Cells % 0 %; Platelet Count 485 10^3/uL (130-400); Red Blood Cell Count 2.81 10^6/uL (4.20-5.40); Red Cell Dist. Width 15.3 % (11.5-14.5); White Blood Cell Count 13.6 10^3/uL (4.8-10.8)
[2024-07-10 06:55] LABS: Blood Urea Nitrogen 17 mg/dl (7-17); Calcium 8.6 mg/dl (8.4-10.2); Carbon Dioxide 26 mmol/L (22-30); Chloride 104 mmol/L (98-107); Estimated Creatinine Clearance 67 ml/min; Glucose 112 mg/dl (70-99); Magnesium 1.7 mg/dl (1.6-2.3); Potassium 3.3 mmol/L (3.5-5.1); Sodium 135 mmol/L (135-145); eGFR > 60.00
[2024-07-10 07:00] VITALS: BP 158/88
[2024-07-10 07:03] LABS: Glucose - Point of Care 102 mg/dl (70-99)
[2024-07-10] MEDS: NOVOLOG FLEXPEN-MODERATE RESISTANCE SC ×2 (08:45→12:04)
[2024-07-10] MEDS: NORVASC 5 MG PO ×2 (08:46→20:29)
[2024-07-10] MEDS: NEURONTIN 100 MG PO ×2 (08:46→15:20)
[2024-07-10] MEDS: LOPRESSOR 12.5 MG PO ×2 (08:46→20:29)
[2024-07-10] MEDS: COLACE 100 MG PO ×2 (08:46→20:28)
[2024-07-10 12:00] LABS: Glucose - Point of Care 133 mg/dl (70-99)
[2024-07-10] MEDS: MYCAMINE 105 MG IV (12:37)
--- NOTE | 2024-07-10 12:50 | W.PN.HOSP.TC ---
Today's Communication/Plan
-
Encourage PT and out of bed activity
Replete potassium
Plan for AIR
Assessment / Plan
Assessment / Plan
#Acute sigmoid bowel perforation with acute surgical abdomen
#E. coli bacteremia due to bowel perforation, hepatic abscess, wound dehiscence
-Pt extubated on room air off TPN on 06/24 and advancing diet as tolerated
-Pain control with oxy and Tylenol
-Recommend ambulate twice daily with abdominal binder, recommend PT with discharged to [place] [facility] if possible to help manage Vac
-repeat CT 06/29 reveals new formed abscess
-Cont with zosyn and micafungin through 08/10
-06/30 IR - adjusted L-sided drain, aspirated anterior right hepatic collection, perisplenic was not safely accessible
-OR for dehiscence closure on 07/06 - POD #3
-PT with ab binder, advance diet per colorectal
-Continue to trend WBC and temp
#Influenza A (+)
-Robitussin for cough, otherwise asymptomatic
-Tamiflu day 10/27
#Increased urinary frequency overnight
-UA was sent by overnight coverage
-Patient denies any burning, UTI symptoms besides increased frequency
-UA no signs of UTI
#Post op anemia
-No evidence of external bleeding; Hgb has been stable recently
-Received 1 unit of blood on 06/26/2024
-Monitor CBC
Profound hypokalemia
-Replete as needed
-40 mEq KCl given 07/10
#Hypomagnesemia
-Repleted and resolved
#Thrombocytosis
-Likely secondary to infx and surgical procedures
-Monitor
#LONG secondary to bowel perforation/infection
-Resolved
#Hyponatremia
-Hypovolemic, encourage p.o. fluids
#Mildly elevated LFTs
-Likely 2/2 recent surgeries/illness/hepatic abscess
-Monitor
#Atrial fibrillation with rapid ventricular response
-New diagnosis found postoperatively.
-[id number] of 4 due to the age being greater than 75, female, hypertension
-Discussed with cardiology who feels this was a transient event, No need for long-term AC
#Essential hypertension
-Started on amlodipine 5 mg now twice daily instead of once daily per home meds
-Stable
#Total right hip replacement (on 05/30/2024)
-[place] removed
-PT OT
-Appreciate Ortho
#Interstitial lung disease with bronchiectasis
#H/O spontaneous pneumothorax
-Home regimen does not seem to include any standing inhalers
-Unclear if she has PFTs with restrictive findings in the past
-On room air without evidence of flare here
-Should follow-up with OP pulmonology
DVT prophylaxis: Subcu Lovenox
Full code
Acute rehab once medically/surgically stable appreciate press puller input.
Anticipated Discharge: 24 - 48 hours
Subjective/Interval History
-
Date of Service: July 10, 2024
Seen and examined at the bedside. No acute events overnight. AFVSS this morning
Remains with persistently mild leukocytosis. Hemoglobin stable. Potassium 3.4.
Patient states abdomen pain slowly improving. Denies any new complaints this morning
Objective Data
-
Labs:
Laboratory Results
07/10/24
06:19
WBC 13.6 H
Hgb 8.5 L
Hct 24.9 L
Plt Count 485 H
Sodium 135
Potassium 3.3 L
Chloride 104
Carbon Dioxide 26
BUN 17
Creatinine 0.7
Glucose 112 H
Calcium 8.6
Vital Signs:
Vital Signs
Temp Pulse Resp BP Pulse Ox
97.8 F 71 15 158/88 97
07/10/24 07:00 07/10/24 08:46 07/10/24 07:00 07/10/24 08:46 07/10/24 07:00
I&O
07/09/24 07/10/24 07/11/24
06:59 06:59 06:59
Intake Total 1950 / 1949 1410 / 1410
Output Total 465 / 465 558 / 558
Balance 1485 / 1485 852 / 852
Review of Systems
-
History Source: Patient
All other systems: Reviewed and negative
Physical Exam
-
General: Well Developed, No Apparent Distress and Comfortable
HEENT: Normocephalic, Atraumatic and Moist Mucous Membranes
Respiratory: Clear to Auscultation and Non Labored Respirations
Cardiac: Regular Rhythm and S1/S2; Negative Murmur, Rub or Gallop
GI: Soft, Nondistended, Normal Bowel Sounds, Tender (Mild, general, no peritoneal signs), Ostomy and Other (PRINCE drain x 3 (RUQ, RLQ, LLQ))
Musculoskeletal: No Clubbing, No Cyanosis and No Edema
Skin: Warm, Dry and Normal Turgor; Negative Rash
Neuro: AO x 3 and Nonfocal/Grossly Intact; Negative Tremors
Psych: Calm
Data Reviewed
-
Labs: Labs Reviewed by me and Discussed with Patient
[2024-07-10] MEDS: KCL 40 MEQ PO (13:09)
--- NOTE | 2024-07-10 13:30 | W.PN.GS2 ---
Addendum entered and electronically signed by Domingo Hernandez MD 07/10/24 14:36:
I saw and examined the patient.
The Cheese Processor's note was reviewed and I agree with the note.
Comment: Stable. ADELA dressing requiring troubleshooting on daily basis.
Original Note:
Today's Communication / Plan
-
continue ADELA dressing
Assessment / Plan
-
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 Went to OR on 06/07/2024 for ex lap, sigmoidectomy with end colostomy creation for perforated stercoral colitis; extensive
washout ~9L for feculent peritonitis with subsequent dehiscence/evisceration
IR drain to left abdomen: minimal SSF
Right sided lower abd drain remains purulent, right upper drain (SQ space) with SSF
CT from 07/08 with stable to improved abdominal collections
POD #4 status post delayed primary closure with local subcutaneous advancement flaps for coverage of fascial dehiscence
Incisional negative pressure dressing remains intact and clean, reinforced edges
WBC remains elevated
Hypokalemia being managed by primary service
Plan:
Continue regular diet
ABX as per ID, PICC in place for extended course of IV abx
Maintain ADELA dressing for 7 days postop
Continue subcutaneous drain (right upper quadrant PRINCE) until dry
Recommend continued use of abdominal binder with activities but okay to leave off while resting or in bed.
PT/OT following, will likely need rehab
Analgesics as needed
Lovenox and SCDs for VTE ppx
Subjective Data
-
Date of Service: July 10, 2024
Patient seen and examined at bedside with Dr. Hernandez. Denies n/v. Tolerating diet. Denies pain.
Objective Data
-
Intake and Output
07/09/24 07/10/24 07/11/24
06:59 06:59 06:59
Intake Total 1950 / 1950 1410 / 1410
Output Total 465 / 465 558 / 558
Balance 1485 / 1485 852 / 852
Intake:
Oral fluids 1740 / 1740 1200 / 1200
IV piggybacks 200 / 200 200 / 200
Amount instilled into Drain (
Total)
Left Lower Abdomen Placed in IR
Output:
Liquid stool amount 400 / 400 500 / 500
Colostomy 400 / 400 500 / 500
Drain Output (Total) 65 / 65 58 / 58
Left Lower Abdomen Placed in IR
Right Lower Abdomen Darius- 0 0
[place]
Right Upper Abdomen Darius- 35 35 48 / 48
[place] A
Other:
Number of approximated MODERATE 2
amounts of urine
Number of approximated LARGE 4 2
amounts of urine
Vital Signs
Temp Pulse Resp BP Pulse Ox
97.8 F 71 15 158/88 97
07/10/24 07:00 07/10/24 08:46 07/10/24 07:00 07/10/24 08:46 07/10/24 07:00
Lab Results
07/10/24 06:19
07/10/24 06:19
Calcium 8.6 mg/dl (8.4-10.2) 07/10/24 06:19
Phosphorus 3.1 mg/dl (2.5-4.5) 07/05/24 04:33
Magnesium 1.7 mg/dl (1.6-2.3) 07/10/24 06:19
Total Bilirubin 0.5 mg/dl (0.2-1.3) 07/09/24 04:12
AST 34 U/L (14-36) 07/09/24 04:12
ALT 39 U/L (0-35) H 07/09/24 04:12
Alkaline Phosphatase 176 U/L (38-126) H 07/09/24 04:12
Total Protein 5.2 g/dl (6.3-8.2) L 07/09/24 04:12
Albumin 2.4 g/dl (3.5-5.0) L 07/09/24 04:12
Physical Exam
-
NAD
ABD soft, nt, stoma pink/viable with stool output
Midline ADELA dressing intact, reinforced
LLQ drain with SSF, RLQ drain with thick green drainage, RUQ drain SSF
[2024-07-10 15:00] VITALS: BP 139/80
[2024-07-10 16:28] VITALS: BP 139/80
[2024-07-10 17:14] LABS: Glucose - Point of Care 188 mg/dl (70-99)
[2024-07-10] MEDS: NOVOLOG FLEXPEN-MODERATE RESISTANCE 1 UNITS SC (17:18)
[2024-07-10] MEDS: LOVENOX 40 MG SC (17:19)
[2024-07-10] MEDS: NEURONTIN 300 MG PO (20:29)
[2024-07-10] MEDS: PEPCID 20 MG PO (20:29)
[2024-07-10 21:33] LABS: Glucose - Point of Care 207 mg/dl (70-99)
[2024-07-10 23:35] VITALS: BP 155/87
[2024-07-11 03:08] VITALS: BMI 21.2
[2024-07-11] MEDS: ZOSYN 100 IV ×4 (05:36→23:52)
[2024-07-11 06:33] LABS: % Basophils 0.4 % (0-2); % Eosinophils 0.2 % (0-6); % Immature Granulocytes 4.9 % (0-0.5); % Lymphocytes 6.2 % (20.5-51.1); % Monocytes 5.1 % (1.7-9.3); % Neutrophils 83.2 % (42.2-75.2); Absolute Basophils 0.1 10^3/uL (0-0.2); Absolute Immature Granulocytes 0.6 10^3/uL (0-0.05); Absolute Lymphocytes 0.8 10^3/uL (1.2-3.4); Absolute Monocytes 0.7 10^3/uL (0.1-0.6); Absolute Neutrophils 10.8 10^3/uL (1.4-6.5); Hematocrit 24.7 % (37.0-47.0); Hemoglobin 8.4 g/dL (12.0-16.0); Mean Corpuscular Hgb 30.5 pg (27.0-31.0); Mean Corpuscular Volume 89.8 fL (81.0-99.0); Mean Platelet Volume 9.4 fL (7.4-10.4); Nucleated Red Blood Cells % 0 %; Platelet Count 483 10^3/uL (130-400); Red Blood Cell Count 2.75 10^6/uL (4.20-5.40); Red Cell Dist. Width 15.6 % (11.5-14.5)
[2024-07-11 07:07] LABS: Blood Urea Nitrogen 17 mg/dl (7-17); Calcium 8.7 mg/dl (8.4-10.2); Carbon Dioxide 28 mmol/L (22-30); Chloride 102 mmol/L (98-107); Estimated Creatinine Clearance 66 ml/min; Glucose 96 mg/dl (70-99); Magnesium 1.7 mg/dl (1.6-2.3); Potassium 3.4 mmol/L (3.5-5.1); Sodium 133 mmol/L (135-145); eGFR > 60.00
--- NOTE | 2024-07-11 08:12 | W.PN.HOSP.TC ---
Addendum entered and electronically signed by Martin Dyson MD 07/11/24 13:12:
Acute sigmoid bowel perforation with acute abdomen s/p ex lap/sigmoidectomy with end colostomy creation for perforated stercoral colitis
-Has multiple drains and sal dressing.
--Per surgery IR drain study later today
-Continue colostomy care
-Continue IV antibiotics along with antifungals until 08/10/2024
--Continue follow ID recommendations
-Abdominal binder advance diet per colorectal
Influenza A
-Tamiflu day 11/27
Hypokalemia
-Replete as needed
Postop anemia
-S/p 1 unit PRBC
-Transfuse if hemoglobin less than 7
Was evaluated by physical therapy recommended acute rehab.
Physiatry will need to be consulted for ARU
I agree with this recommendation as well as I do believe she would benefit from acute rehab
At this time we will sign off, if any further questions please do not hesitate to reach out.
Original Note:
Today's Communication/Plan
-
Cont. Antibiotics
PT/OT with ab binder
Replete K
Assessment / Plan
Assessment / Plan
#Acute sigmoid bowel perforation with acute surgical abdomen
#E. coli bacteremia due to bowel perforation, hepatic abscess, wound dehiscence
-Pt extubated on room air off TPN on 06/24 and advancing diet as tolerated
-Pain control with oxy and Tylenol
-Recommend ambulate twice daily with abdominal binder, recommend PT with discharged to [facility] if possible to help manage Vac
-repeat CT 06/29 reveals new formed abscess
-Cont with zosyn and micafungin through 08/10
-06/30 IR - adjusted L-sided drain, aspirated anterior right hepatic collection, perisplenic was not safely accessible
-OR for dehiscence closure on 07/06 - POD #5
-PT with ab binder, advance diet per colorectal
-Continue to trend WBC and temp
#Influenza A (+)
-Robitussin for cough, otherwise asymptomatic
-Tamiflu day 11/27
#Increased urinary frequency overnight
-Patient denies any burning, UTI symptoms besides increased frequency
-UA no signs of UTI
#Post op anemia
-No evidence of external bleeding; Hgb has been stable recently
-Received 1 unit of blood on 06/26/2024
-Monitor CBC
Profound hypokalemia
-Replete as needed
-40 mEq KCl given 07/10
#Hypomagnesemia
-Repleted and resolved
#Thrombocytosis
-Likely secondary to infx and surgical procedures
-Monitor
#LONG secondary to bowel perforation/infection
-Resolved
#Hyponatremia
-Hypovolemic, encourage p.o. fluids
#Mildly elevated LFTs
-Likely 2/2 recent surgeries/illness/hepatic abscess
-Monitor
#Atrial fibrillation with rapid ventricular response
-New diagnosis found postoperatively.
-[id number] of 4 due to the age being greater than 75, female, hypertension
-Discussed with cardiology who feels this was a transient event, No need for long-term AC
#Essential hypertension
-Started on amlodipine 5 mg now twice daily instead of once daily per home meds
-Stable
#Total right hip replacement (on 05/30/2024)
-[place] removed
-PT OT
-Appreciate Ortho
#Interstitial lung disease with bronchiectasis
#H/O spontaneous pneumothorax
-Home regimen does not seem to include any standing inhalers
-Unclear if she has PFTs with restrictive findings in the past
-On room air without evidence of flare here
-Should follow-up with OP pulmonology
DVT prophylaxis: Subcu Lovenox
Full code
Acute rehab once medically/surgically stable appreciate safety deposit boxes custodian input.
Anticipated Discharge: > 48 hours
Subjective/Interval History
-
Date of Service: July 11, 2024
Objective Data
-
Labs:
Laboratory Results
07/11/24
05:43
WBC 13.0 H
Hgb 8.4 L
Hct 24.7 L
Plt Count 483 H
Sodium 133 L
Potassium 3.4 L
Chloride 102
Carbon Dioxide 28
BUN 17
Creatinine 0.7
Glucose 96
Calcium 8.7
Vital Signs:
Vital Signs
Temp Pulse Resp BP Pulse Ox
98.3 F 69 16 155/87 97
07/10/24 23:35 07/10/24 23:35 07/10/24 23:35 07/10/24 23:35 07/10/24 23:35
I&O
07/10/24 07/11/24 07/12/24
06:59 06:59 06:59
Intake Total 1410 / 1410 2080 / 2080
Output Total 558 / 558 700 / 700
Balance 852 / 852 1380 / 1380
Review of Systems
-
History Source: Patient
EENT: Reports No Symptoms Reported
Respiratory: Reports No Symptoms
Cardiac: Reports No Symptoms
Abdomen/GI: Reports No Symptoms
Genitourinary: Reports No Symptoms
Neuro: Reports No Symptoms
Physical Exam
-
General: No Apparent Distress and Comfortable
Respiratory: Clear to Auscultation
Cardiac: Regular Rhythm and S1/S2
GI: Soft, Nondistended, Normal Bowel Sounds, Tender, Ostomy and Other (LLQ,RLQ, RUQ drains. No signs of infection around drain sites )
Skin: Warm
Neuro: AO x 3
Psych: Calm
[2024-07-11 08:14] VITALS: BP 152/82
[2024-07-11] MEDS: NEURONTIN 100 MG PO ×2 (08:56→16:34)
[2024-07-11] MEDS: NORVASC 5 MG PO ×2 (08:56→20:38)
[2024-07-11] MEDS: NOVOLOG FLEXPEN-MODERATE RESISTANCE SC (08:56)
[2024-07-11] MEDS: KCL 20 MEQ PO (08:56)
[2024-07-11] MEDS: TAMIFLU 75 MG PO ×2 (08:57→20:37)
[2024-07-11] MEDS: COLACE 100 MG PO ×2 (08:57→20:38)
[2024-07-11] MEDS: LOPRESSOR 12.5 MG PO ×2 (08:57→20:38)
--- NOTE | 2024-07-11 09:58 | W.PN.GS2 ---
Today's Communication / Plan
-
Continue ADELA dressing
Assessment / Plan
-
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 Went to OR on 06/07/2024 for ex lap, sigmoidectomy with end colostomy creation for perforated stercoral colitis; extensive
washout ~9L for feculent peritonitis with subsequent dehiscence/evisceration
IR drain to left abdomen: minimal SSF
Right sided lower abd drain remains purulent, right upper drain (SQ space) with SSF
CT from 07/08 with stable to improved abdominal collections
POD #5 status post delayed primary closure with local subcutaneous advancement flaps for coverage of fascial dehiscence
Incisional negative pressure dressing remains intact and clean
Stoma functioning, tolerating diet
WBC remains elevated, ID following
Plan:
Continue regular diet
ABX as per ID, PICC in place for extended course of IV abx
Maintain ADELA dressing for 7 days postop
Continue subcutaneous drain (right upper quadrant PRINCE) until dry
Recommend continued use of abdominal binder with activities but okay to leave off while resting or in bed.
PT/OT following, will need rehab
Analgesics as needed
Lovenox and SCDs for VTE ppx
Subjective Data
-
Date of Service: July 11, 2024
Patient seen and examined with Dr. Sommer. Denies n/v. Tolerating diet. Denies pain.
Objective Data
-
Intake and Output
07/10/24 07/11/24 07/12/24
06:59 06:59 06:59
Intake Total 1410 / 1410 2079 / 2079
Output Total 558 / 558 700 / 700
Balance 852 / 852 1380 / 1380
Intake:
Oral fluids 1200 / 1200 1620 / 1620
IV piggybacks 200 / 200 450 / 450
Amount instilled into Drain (
Total)
Left Lower Abdomen Placed in IR
Output:
Liquid stool amount 500 / 500 575 / 575
Colostomy 500 / 500 575 / 575
Drain Output (Total) 58 / 58 125 / 125
Left Lower Abdomen Placed in IR
Right Lower Abdomen Darius- 0 / 0 60 / 60
[place]
Right Upper Abdomen Darius- 48 / 48 55 / 55
[place] A
Other:
Number of approximated MODERATE 2 3
amounts of urine
Number of approximated LARGE 2 1
amounts of urine
How many times incontinent 2
SATURATED amount urine
Vital Signs
Temp Pulse Resp BP Pulse Ox
97.5 F 71 16 152/82 96
07/11/24 08:14 07/11/24 08:57 07/11/24 08:14 07/11/24 08:57 07/11/24 08:14
Lab Results
07/11/24 05:43
07/11/24 05:43
Calcium 8.7 mg/dl (8.4-10.2) 07/11/24 05:43
Phosphorus 3.1 mg/dl (2.5-4.5) 07/05/24 04:33
Magnesium 1.7 mg/dl (1.6-2.3) 07/11/24 05:43
Total Bilirubin 0.5 mg/dl (0.2-1.3) 07/09/24 04:12
AST 34 U/L (14-36) 07/09/24 04:12
ALT 39 U/L (0-35) H 07/09/24 04:12
Alkaline Phosphatase 176 U/L (38-126) H 07/09/24 04:12
Total Protein 5.2 g/dl (6.3-8.2) L 07/09/24 04:12
Albumin 2.4 g/dl (3.5-5.0) L 07/09/24 04:12
Physical Exam
-
NAD
ABD soft, nt, stoma pink/viable with stool output
Midline ADELA dressing intact
LLQ drain with SSF, RLQ drain with thick green drainage, RUQ drain SSF
--- NOTE | 2024-07-11 10:40 | WOUNDNOTE ---
[facility] RN note: Spoke with Dr. Moreno who stated Dr. Kay did not want patient's ostomy appliance changed (unless the appliance leaks) for 1 week after surgery which was last d/t the ADELA dressing. Dr. Moreno saw patient this am and confirmed
patient's ostomy appliance is not leaking. Will follow peripherally as needed.
[2024-07-11 11:52] VITALS: BP 144/86; PULSE 70; O2SAT 98
[2024-07-11] MEDS: MYCAMINE 105 MG IV (11:53)
[2024-07-11 11:56] LABS: Glucose - Point of Care 180 mg/dl (70-99)
--- NOTE | 2024-07-11 12:19 | W.PN.CRS1 ---
Today's Communication / Plan
-
LLQ IR drain study
Assessment/Plan
-
79-year-old female with PMH of HTN, HLD, interstitial lung disease with bronchiectasis, history of pneumonia multiple times, history of spontaneous pneumothorax x 2 who presents 8 days after right hip replacement; 4 days prior to admission, she
started to develop abdominal pain and nausea with decreased bowel function; the abdominal pain and nausea/vomiting continue to worsen; she denies any fevers, chest pain, or urinary symptoms; she does have dyspnea due to the abdominal pain; her last
colonoscopy was 2 years ago which she reports as normal (report not available to me); in the ED, her WBC was 9.3, CR 1.5 and a CTAP was done which shows moderate free air, extraluminal stool adjacent to the mid sigmoid colon with concern of sigmoid
perforation possibly due to diverticulitis
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
- extubated and pressors weaned off by POD 1; initially oliguric, but UOP recovered; A-fib with RVR, stabilized on Amio
- 06/12 CT - c/f subhepatic abscess, d/w [place] and felt that it more likely represents free fluid; remainder post-op changes
- 06/13 opened enrique at inferior midline for murky drainage
- 06/15 mild fascial dehiscence noted; CT -subhepatic abscess increased, fluid along the left gutter; s/p IR drain of subhepatic abscess�20 mL pus
- 06/16 s/p IR drain of left gutter�35 mL of turbid fluid
- 3 complete fascial dehiscence
- 3 vac placed with white sponge at 75mmHg
- 06/29 wbc 11.6, CT - evolving collections in anterior right hepatic lobe (8x4x1), post right hepatic lobe ([id number]), perisplenic ([id number]), left paracolic gutter ([id number]) and right mid-abdomen (1.5x2x1.5cm)
- 06/30 wbc 12.2, IR - adjusted L-sided drain, aspirated anterior right hepatic collection, perisplenic was not safely accessible
- 07/01 vac replaced, wbc 15
- 07/07 - flap closure
WBC 12.0 (12.5), 8.4 (8.5)
Vitals normal
- Continue regular diet
- Lovenox DVT prophylaxis, TEDs/SCDs in place
�Appreciate ID, continue IV Zosyn and micafungin
-RLQ drain in pelvis with purulent, continue
-IR consult today for LLQ drain study
- Continue ADELA drain (managed by general surgery)
� OOB per Dr. Kay
- Dispo: eventual rehab
� Pain control with tylenol, oxycodone, dilaudid
� Appreciate hospitalist
Subjective Data
Procedure
06/07/2024- Exploratory laparotomy, lysis of his adhesions, sigmoidectomy, creation of end colostomy on
07/06/2024- Delayed primary closure of abdominal wall wound
Subjective Data
Date of Service: July 11, 2024
Patient states her pain is controlled. She has no nausea or vomiting. She is tolerating a diet.
Objective Data
-
Vital Signs
Temp Pulse Resp BP Pulse Ox
97.5 F 71 16 152/82 96
07/11/24 08:14 07/11/24 08:57 07/11/24 08:14 07/11/24 08:57 07/11/24 08:15
Intake & Output
07/10/24 07/11/24 07/12/24
06:59 06:59 06:59
Intake Total 1410 / 1410 2079 / 2080
Output Total 558 / 558 700 / 700
Balance 852 / 852 1380 / 1380
Intake:
Oral fluids 1200 / 1200 1620 / 1620
IV piggybacks 200 / 200 450 / 450
Amount instilled into Drain (
Total)
Left Lower Abdomen Placed in IR
Output:
Liquid stool amount 500 / 500 575 / 575
Colostomy 500 / 500 575 / 575
Drain Output (Total) 58 / 58 125 / 125
Left Lower Abdomen Placed in IR
Right Lower Abdomen Darius- 0 / 0 60 / 60
[place]
Right Upper Abdomen Darius- 48 / 48 55 / 55
[place] A
Other:
Number of approximated MODERATE 2 3
amounts of urine
Number of approximated LARGE 2 1
amounts of urine
How many times incontinent 2
SATURATED amount urine
Lab Results
07/11/24 05:43
07/11/24 05:43
Physical Exam
-
General: No Acute Distress and AOx3
Abdomen: Soft, Non Distended, Non Tender and Other (RLQ - purulent green, LLQ IR drain serous)
Wound: Dressing in Place
[2024-07-11] MEDS: NOVOLOG FLEXPEN-MODERATE RESISTANCE 1 UNITS SC ×2 (12:44→17:46)
--- NOTE | 2024-07-11 14:15 | CM ---
Patient seen at bedside
07/06/2024- Delayed primary closure of abdominal wall wound
PT rec Acute Rehab
--- NOTE | 2024-07-11 14:50 | W.PN.ID1 ---
Date of Service
Date of Service: July 11, 2024
Today's Communication
Continue abx's.
Assessment / Plan
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
E. coli bacteremia due to bowel perforation, abscess
S/p Exploratory laparotomy, lysis of adhesions, sigmoidectomy, creation of end-colostomy
Wound dehiscence
Ileus
Marked leukocytosis
LONG
Hx Recent right hip replacement
Influenza
- 06/07 blood cultures both with anaerobe - bacteroides - source bowel perforation; collection
- blood culture from 06/09 also with a sensitive E coli
- repeat blood cultures x2 06/15 no growth to date
- 06/15 abscess cultures: Pseudomonas aeruginosa, E. coli and Eggerthella lenta
- 07/04 Influenza pcr positive
Recommendations:
- s/p Delayed primary subcutaneous closure of abdominal wall wound with local skin and subcutaneous advancement flaps 07/06
- Repeat CT abd/pelvis with stable or improving abscess size.
- For drain study today.
- c/w with zosyn - plan through 08/10
- c/w micafungin - plan through 08/10
- completed 5 days of tamiflu
Follow white count
Continue with supportive measures.
����������������������������������������������������������
Chief Complaint
-: Other (bowel perforation, secondary peritonitis)
Subjective / Review of Systems
No abd pain.
Vital Signs / Physical Exam
Vital Signs
Vital Signs
Temp Pulse Resp BP Pulse Ox
97.5 F 71 16 152/82 96
07/11/24 08:14 07/11/24 08:57 07/11/24 08:14 07/11/24 08:57 07/11/24 13:34
Physical Exam
Constitutional: No Acute Distress and Comfortable
Cardiovascular: Regular Rate and S1/S2
Pulmonary: Symmetric and Non Labored
Gastrointestinal: Non Distended and Other (Ostomy in place. PRINCE x 2.)
Skin: Dry; Negative Rash or Jaundice
Wound: Other (Abdominal wound dressed.)
Neurological: Awake
Psychological: Calm
Objective Data
Lab Data
Lab Results
07/11/24 05:43
07/11/24 05:43
PT 14.6 Sec (11.4-14.6) 06/07/24 14:37
INR 1.11 06/07/24 14:37
APTT 27.5 Sec (23.4-35.0) 06/07/24 14:37
Estimated Creat Clear 66 ml/min 07/11/24 05:43
Lactic Acid 1.9 mmol/L (0.7-2.0) 06/10/24 03:33
Total Bilirubin 0.5 mg/dl (0.2-1.3) 07/09/24 04:12
AST 34 U/L (14-36) 07/09/24 04:12
ALT 39 U/L (0-35) H 07/09/24 04:12
Alkaline Phosphatase 176 U/L (38-126) H 07/09/24 04:12
Most recent labs reviewed.
Micro Results:
07/04/24 13:05 Influenza Types A & B (EVI) - Final
Nasal Swab Influenza A Positive, NAAT
06/30/24 14:30 Wound Culture - Final
Abscess Escherichia coli
Gram Stain - Final
06/16/24 15:50 Wound Culture - Final
Abdomen Escherichia coli
Gram Stain - Final
06/16/24 15:50 Anaerobic Culture - Final
Abdomen NO ANAEROBES ISOLATED
06/15/24 16:25 Body Fluid Culture - Final
Fluid Pseudomonas aeruginosa
Escherichia coli
Gram Stain - Final
06/15/24 16:25 Anaerobic Culture - Final
Abdomen Eggerthella lenta
06/14/24 12:56 Blood Culture - Final
Blood/Venous No Growth - Final Report
06/14/24 12:22 Blood Culture - Final
Blood/Venous No Growth - Final Report
06/14/24 09:05 Blood Culture - Final
Blood/Venous No Growth - Final Report
06/09/24 15:02 Blood Culture - Final
Blood/Venous Escherichia coli
Gram Stain - Final
06/07/24 10:27 Blood Culture - Final
Blood/Venous Bacteroides uniformis
Gram Stain - Final
06/07/24 10:26 Blood Culture - Final
Blood/Venous Bacteroides uniformis
Gram Stain - Final
06/09/24 12:09 Blood Culture - Final
Blood/Venous No Growth - Final Report
06/07/24 23:30 MRSA Screen - Final
Nose No Methicillin Resistant Staphylococcus aureus isolated.
06/07/24 10:27 Urine Culture - Final
Urine No Significant Growth
06/07/24 09:19 Influenza Types A & B (EVI) - Final
Nasal Swab Negative for Influenza A & B, NAAT
Negative results must be combined with clinical observations
and patient history.
Nucleic Acid Amplification test (NAAT)performed on the
[employer] platform.
[2024-07-11 15:00] VITALS: BP 128/63; BP_SYST 77
--- NOTE | 2024-07-11 15:31 | W.PN.UPDATE ---
Update Note
Progress Note Update
LLQ IR drain with minimal output. Drain study showed very small collection with no fistula to adjacent structures. Drain removed
[2024-07-11 16:39] LABS: Glucose - Point of Care 170 mg/dl (70-99)
[2024-07-11 16:44] VITALS: BP 148/76
[2024-07-11] MEDS: LOVENOX 40 MG SC (17:47)
[2024-07-11 21:49] LABS: Glucose - Point of Care 229 mg/dl (70-99)
[2024-07-11] MEDS: PEPCID 20 MG PO (22:07)
[2024-07-11] MEDS: NEURONTIN 300 MG PO (22:07)
[2024-07-11 23:02] VITALS: BP 146/81
[2024-07-12 05:12] LABS: Hematocrit 24.5 % (37.0-47.0); Hemoglobin 8.2 g/dL (12.0-16.0); Mean Corp Hgb Conc. 33.5 g/dL (33.0-37.0); Mean Corpuscular Hgb 30.1 pg (27.0-31.0); Mean Corpuscular Volume 90.1 fL (81.0-99.0); Mean Platelet Volume 9.3 fL (7.4-10.4); Platelet Count 476 10^3/uL (130-400); Red Blood Cell Count 2.72 10^6/uL (4.20-5.40); Red Cell Dist. Width 15.6 % (11.5-14.5); White Blood Cell Count 13.1 10^3/uL (4.8-10.8)
[2024-07-12 05:36] VITALS: BMI 21.5
[2024-07-12 05:44] LABS: Blood Urea Nitrogen 18 mg/dl (7-17); Calcium 8.6 mg/dl (8.4-10.2); Carbon Dioxide 26 mmol/L (22-30); Chloride 103 mmol/L (98-107); Estimated Creatinine Clearance 67 ml/min; Glucose 98 mg/dl (70-99); Magnesium 1.6 mg/dl (1.6-2.3); Potassium 3.4 mmol/L (3.5-5.1); Sodium 137 mmol/L (135-145); eGFR > 60.00
[2024-07-12] MEDS: ZOSYN 100 IV ×3 (05:47→17:07)
[2024-07-12 07:00] VITALS: BP 132/79
--- NOTE | 2024-07-12 07:07 | W.PN.GS2 ---
Today's Communication / Plan
-
-- No changes from General Surgery perspective, can remove RUQ drain at any time with minimal SSF outputs
Assessment / Plan
-
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 Went to OR on 06/07/2024 for ex lap, sigmoidectomy with end colostomy creation for perforated stercoral colitis; extensive
washout ~9L for feculent peritonitis with subsequent dehiscence/evisceration
IR drain to LEFT abdomen: minimal SSF, removed on 07/11
Right sided lower abd drain remains purulent
Right upper drain (SQ space) with minimal SSF
CT from 07/08 with stable to improved abdominal collections
POD #6 status post delayed primary closure with local subcutaneous advancement flaps for coverage of fascial dehiscence
Incisional negative pressure dressing remains intact and clean
Stoma functioning, tolerating diet
WBC remains elevated, ID following
Plan:
-- Continue regular diet
-- ABX as per ID, PICC in place for extended course of IV abx
-- Maintain ADELA dressing for 7 days postop
-- Can remove subcutaneous drain in RUQ
-- Recommend continued use of abdominal binder with activities but okay to leave off while resting or in bed.
-- PT/OT following, will need rehab
-- Lovenox and SCDs for VTE ppx
Subjective Data
-
Date of Service: July 12, 2024
No complaints. Denies worsening abdominal pain. No nausea or vomiting. Continues to pass stools. Afebrile. Ambulating.
Objective Data
-
Intake and Output
07/11/24 07/12/24 07/13/24
06:59 06:59 06:59
Intake Total 2079 / 2079 720 / 720
Output Total 700 / 700
Balance 1380 / 1380 703 / 703
Intake:
Oral fluids 1620 / 1620 720 / 720
IV piggybacks 450 / 450
Amount instilled into Drain (
Total)
Left Lower Abdomen Placed in IR
Output:
Liquid stool amount 575 / 575
Colostomy 575 / 575
Drain Output (Total) 125 / 125
Left Lower Abdomen Placed in IR
Right Lower Abdomen Darius- 60 / 60 2
[place]
Right Upper Abdomen Darius- 55 / 55
[place] A
Other:
Number of approximated SMALL 1
amounts of urine
Number of approximated MODERATE 3 2
amounts of urine
Number of approximated LARGE 1
amounts of urine
How many times incontinent 2
SATURATED amount urine
Vital Signs
Temp Pulse Resp BP Pulse Ox
98.2 F 71 16 146/81 96
07/11/24 23:02 07/11/24 23:02 07/11/24 23:02 07/11/24 23:02 07/11/24 23:02
Lab Results
07/12/24 04:46
07/12/24 04:46
Calcium 8.6 mg/dl (8.4-10.2) 07/12/24 04:46
Phosphorus 3.1 mg/dl (2.5-4.5) 07/05/24 04:33
Magnesium 1.6 mg/dl (1.6-2.3) 07/12/24 04:46
Total Bilirubin Cancelled 07/11/24 18:27
AST Cancelled 07/11/24 18:27
ALT Cancelled 07/11/24 18:27
Alkaline Phosphatase Cancelled 07/11/24 18:27
Total Protein Cancelled 07/11/24 18:27
Albumin Cancelled 07/11/24 18:27
Physical Exam
-
Gen: NAD
Abd: (in chair with abdominal binder exam limited), soft, NT, PRINCE drains with minimal serous from RUQ and green purulent from RLQ
Patient has a cruz catheter: No
Patient has a central line: Yes
[2024-07-12 07:12] LABS: Glucose - Point of Care 132 mg/dl (70-99)
[2024-07-12] MEDS: NOVOLOG FLEXPEN-MODERATE RESISTANCE SC ×3 (07:33→17:29)
[2024-07-12] MEDS: COLACE 100 MG PO ×2 (08:32→21:10)
[2024-07-12] MEDS: LOPRESSOR 12.5 MG PO ×2 (08:32→21:10)
[2024-07-12] MEDS: TAMIFLU 75 MG PO ×2 (08:33→21:10)
[2024-07-12] MEDS: KCL 20 MEQ PO (08:33)
[2024-07-12] MEDS: NEURONTIN 100 MG PO ×2 (08:33→15:56)
[2024-07-12] MEDS: NORVASC 5 MG PO ×2 (08:33→21:12)
--- NOTE | 2024-07-12 09:49 | W.PN.CRS1 ---
Today's Communication / Plan
-
continue abx
regular diet
dispo planning
Assessment/Plan
-
79-year-old female with PMH of HTN, HLD, interstitial lung disease with bronchiectasis, history of pneumonia multiple times, history of spontaneous pneumothorax x 2 who presents 8 days after right hip replacement; 4 days prior to admission, she
started to develop abdominal pain and nausea with decreased bowel function; the abdominal pain and nausea/vomiting continue to worsen; she denies any fevers, chest pain, or urinary symptoms; she does have dyspnea due to the abdominal pain; her last
colonoscopy was 2 years ago which she reports as normal (report not available to me); in the ED, her WBC was 9.3, CR 1.5 and a CTAP was done which shows moderate free air, extraluminal stool adjacent to the mid sigmoid colon with concern of sigmoid
perforation possibly due to diverticulitis
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
- extubated and pressors weaned off by POD 1; initially oliguric, but UOP recovered; A-fib with RVR, stabilized on Amio
- 06/12 CT - c/f subhepatic abscess, d/w [place] and felt that it more likely represents free fluid; remainder post-op changes
- 06/13 opened enrique at inferior midline for murky drainage
- 06/15 mild fascial dehiscence noted; CT -subhepatic abscess increased, fluid along the left gutter; s/p IR drain of subhepatic abscess�20 mL pus
- 06/16 s/p IR drain of left gutter�35 mL of turbid fluid
- 3 complete fascial dehiscence
- 3 vac placed with white sponge at 75mmHg
- 06/29 wbc 11.6, CT - evolving collections in anterior right hepatic lobe (8x4x1), post right hepatic lobe ([id number]), perisplenic ([id number]), left paracolic gutter ([id number]) and right mid-abdomen (1.5x2x1.5cm)
- 06/30 wbc 12.2, IR - adjusted L-sided drain, aspirated anterior right hepatic collection, perisplenic was not safely accessible
- 07/01 vac replaced, wbc 15
- 07/07 - flap closure
- 07/11 - LLQ removal by IR
WBC 13.1 (12.0), Hgb 8.2 (8.4)
Vitals normal
- Continue regular diet
- Lovenox DVT prophylaxis, TEDs/SCDs in place
�Appreciate ID, continue IV Zosyn and micafungin
-RLQ drain in pelvis with purulent, continue. Will remove RUQ general surgery drain before discharge.
- Continue ADELA drain (managed by general surgery)
� OOB with binder
- Dispo: eventual rehab - anticipate by the end of the week
� Pain control with tylenol, oxycodone, dilaudid
� Appreciate hospitalist
Subjective Data
Procedure
06/07/2024- Exploratory laparotomy, lysis of his adhesions, sigmoidectomy, creation of end colostomy on
07/06/2024- Delayed primary closure of abdominal wall wound
Subjective Data
Date of Service: July 12, 2024
Patient states she feels well. She has no nausea or vomiting. She is tolerating a diet. She has no complaints.
Objective Data
-
Vital Signs
Temp Pulse Resp BP Pulse Ox
98.2 F 82 16 132/79 98
07/12/24 07:00 07/12/24 08:32 07/12/24 07:00 07/12/24 08:32 07/12/24 07:00
Intake & Output
07/11/24 07/12/24 07/13/24
06:59 06:59 06:59
Intake Total 2080 / 2080 720 / 720
Output Total 700 / 700
Balance 1380 / 1380 703 / 703
Intake:
Oral fluids 1620 / 1620 720 / 720
IV piggybacks 450 / 450
Amount instilled into Drain (
Total)
Left Lower Abdomen Placed in IR
Output:
Liquid stool amount 575 / 575
Colostomy 575 / 575
Drain Output (Total) 125 / 125
Left Lower Abdomen Placed in IR
Right Lower Abdomen [facility] 60 60
[place]
Right Upper Abdomen [facility] 55 / 55
[place] A
Other:
Number of approximated SMALL 1
amounts of urine
Number of approximated MODERATE 3 2
amounts of urine
Number of approximated LARGE 1
amounts of urine
How many times incontinent 2
SATURATED amount urine
Lab Results
07/12/24 04:46
07/12/24 04:46
Physical Exam
-
General: No Acute Distress and AOx3
Abdomen: Soft, Non Distended, Non Tender and Other (Siva drain RUQ green purulent, RLQ serous)
Wound: Dressing Dry
--- NOTE | 2024-07-12 12:04 | CM ---
Patient seen at bedside
PT rec [facility]
PLAN: [facility] when medically stable
[2024-07-12] MEDS: MYCAMINE 105 MG IV (12:11)
[2024-07-12 12:22] LABS: Glucose - Point of Care 112 mg/dl (70-99)
--- NOTE | 2024-07-12 12:52 | W.PN.ID1 ---
Date of Service
Date of Service: July 12, 2024
Today's Communication
Continue Zosyn and micafungin.
Assessment / Plan
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
E. coli bacteremia due to bowel perforation, abscess
S/p Exploratory laparotomy, lysis of adhesions, sigmoidectomy, creation of end-colostomy
Wound dehiscence
Ileus
Marked leukocytosis
OLNG
Hx Recent right hip replacement
Influenza
- 06/07 blood cultures both with anaerobe - bacteroides - source bowel perforation; collection
- blood culture from 06/09 also with a sensitive E coli
- repeat blood cultures x2 06/15 no growth to date
- 06/15 abscess cultures: Pseudomonas aeruginosa, E. coli and Eggerthella lenta
- 07/04 Influenza pcr positive
Recommendations:
- s/p Delayed primary subcutaneous closure of abdominal wall wound with local skin and subcutaneous advancement flaps 07/06
- 07/11 Abscess drain study: No significant residual undrained collection. No fistulous communication.
LLQ drain removed.
- c/w with zosyn - plan through 08/10
- c/w micafungin - plan through 08/10
- completed 5 days of tamiflu
- Follow white count
����������������������������������������������������������
Chief Complaint
-: Other (bowel perforation, secondary peritonitis)
Subjective / Review of Systems
No complaints today.
Vital Signs / Physical Exam
Vital Signs
Vital Signs
Temp Pulse Resp BP Pulse Ox
98.2 F 82 16 132/79 98
07/12/24 07:00 07/12/24 08:32 07/12/24 07:00 07/12/24 08:32 07/12/24 07:00
Physical Exam
Constitutional: No Acute Distress and Comfortable
Cardiovascular: Regular Rate and S1/S2
Pulmonary: Symmetric and Non Labored
Gastrointestinal: Non Distended and Other (Ostomy in place. )
Wound: Other (Abdominal wound dressed.)
Neurological: AO x 3
Psychological: Calm
Objective Data
Lab Data
Lab Results
07/12/24 04:46
07/12/24 04:46
PT 14.6 Sec (11.4-14.6) 06/07/24 14:37
INR 1.11 06/07/24 14:37
APTT 27.5 Sec (23.4-35.0) 06/07/24 14:37
Estimated Creat Clear 67 ml/min 07/12/24 04:46
Lactic Acid 1.9 mmol/L (0.7-2.0) 06/10/24 03:33
Total Bilirubin Cancelled 07/11/24 18:27
AST Cancelled 07/11/24 18:27
ALT Cancelled 07/11/24 18:27
Alkaline Phosphatase Cancelled 07/11/24 18:27
Most recent labs reviewed.
Micro Results:
07/04/24 13:05 Influenza Types A & B (EVI) - Final
Nasal Swab Influenza A Positive, NAAT
06/30/24 14:30 Wound Culture - Final
Abscess Escherichia coli
Gram Stain - Final
06/16/24 15:50 Wound Culture - Final
Abdomen Escherichia coli
Gram Stain - Final
06/16/24 15:50 Anaerobic Culture - Final
Abdomen NO ANAEROBES ISOLATED
06/15/24 16:25 Body Fluid Culture - Final
Fluid Pseudomonas aeruginosa
Escherichia coli
Gram Stain - Final
06/15/24 16:25 Anaerobic Culture - Final
Abdomen Eggerthella lenta
06/14/24 12:56 Blood Culture - Final
Blood/Venous No Growth - Final Report
06/14/24 12:22 Blood Culture - Final
Blood/Venous No Growth - Final Report
06/14/24 09:05 Blood Culture - Final
Blood/Venous No Growth - Final Report
06/09/24 15:02 Blood Culture - Final
Blood/Venous Escherichia coli
Gram Stain - Final
06/07/24 10:27 Blood Culture - Final
Blood/Venous Bacteroides uniformis
Gram Stain - Final
06/07/24 10:26 Blood Culture - Final
Blood/Venous Bacteroides uniformis
Gram Stain - Final
06/09/24 12:09 Blood Culture - Final
Blood/Venous No Growth - Final Report
06/07/24 23:30 MRSA Screen - Final
Nose No Methicillin Resistant Staphylococcus aureus isolated.
06/07/24 10:27 Urine Culture - Final
Urine No Significant Growth
06/07/24 09:19 Influenza Types A & B (EVI) - Final
Nasal Swab Negative for Influenza A & B, NAAT
Negative results must be combined with clinical observations
and patient history.
Nucleic Acid Amplification test (NAAT)performed on the
[employer] platform.
[2024-07-12 15:00] VITALS: BP 138/79
--- NOTE | 2024-07-12 15:59 | PTCARENOTE ---
pt OOB to chair multiple times today, ambulating with PT, ambulated to bathroom for hygiene. No change in physical assessment. CB in reach
[2024-07-12] MEDS: LOVENOX 40 MG SC (17:07)
[2024-07-12 17:28] LABS: Glucose - Point of Care 125 mg/dl (70-99)
[2024-07-12] MEDS: NEURONTIN 300 MG PO (21:10)
[2024-07-12] MEDS: PEPCID 20 MG PO (21:10)
[2024-07-12 21:27] LABS: Glucose - Point of Care 210 mg/dl (70-99)
[2024-07-12 23:29] VITALS: BP 147/80
[2024-07-13] MEDS: ZOSYN 100 IV ×4 (00:47→18:16)
--- NOTE | 2024-07-13 04:38 | PTCARENOTE ---
Patient had a restful night, she had no pain, tolerated being OOB, good stool output in her colostomy, voiding with out difficulty, ADELA dressing remains intact midline abdomen, as well as colostomy wafer, PRINCE drains draining scant drainage, dressing
were changed around drain sites. SCD's on in bed, call booth with in reach.
[2024-07-13 05:39] VITALS: BMI 20.1
[2024-07-13 07:00] VITALS: BP 117/71
[2024-07-13 07:06] LABS: Glucose - Point of Care 130 mg/dl (70-99)
[2024-07-13] MEDS: NOVOLOG FLEXPEN-MODERATE RESISTANCE SC ×2 (08:34→18:15)
[2024-07-13] MEDS: TAMIFLU 75 MG PO ×2 (08:34→21:36)
[2024-07-13] MEDS: NORVASC PO (08:35)
[2024-07-13 08:36] LABS: % Basophils 0.5 % (0-2); % Eosinophils 0.2 % (0-6); % Immature Granulocytes 4.5 % (0-0.5); % Lymphocytes 4.8 % (20.5-51.1); % Monocytes 5.5 % (1.7-9.3); % Neutrophils 84.5 % (42.2-75.2); Absolute Basophils 0.1 10^3/uL (0-0.2); Absolute Immature Granulocytes 0.6 10^3/uL (0-0.05); Absolute Lymphocytes 0.6 10^3/uL (1.2-3.4); Absolute Monocytes 0.7 10^3/uL (0.1-0.6); Absolute Neutrophils 10.7 10^3/uL (1.4-6.5); Hematocrit 27.1 % (37.0-47.0); Mean Corp Hgb Conc. 33.2 g/dL (33.0-37.0); Mean Corpuscular Volume 90.3 fL (81.0-99.0); Mean Platelet Volume 9.1 fL (7.4-10.4); Nucleated Red Blood Cells % 0 %; Platelet Count 535 10^3/uL (130-400); Red Cell Dist. Width 15.9 % (11.5-14.5); White Blood Cell Count 12.6 10^3/uL (4.8-10.8)
[2024-07-13] MEDS: LOPRESSOR 12.5 MG PO ×2 (08:36→21:36)
[2024-07-13] MEDS: KCL 20 MEQ PO (08:36)
[2024-07-13] MEDS: COLACE 100 MG PO ×2 (08:36→21:35)
[2024-07-13] MEDS: NEURONTIN 100 MG PO ×2 (08:36→16:17)
[2024-07-13 09:00] LABS: Blood Urea Nitrogen 20 mg/dl (7-17); Carbon Dioxide 26 mmol/L (22-30); Chloride 102 mmol/L (98-107); Estimated Creatinine Clearance 55 ml/min; Glucose 125 mg/dl (70-99); Potassium 3.5 mmol/L (3.5-5.1); Sodium 137 mmol/L (135-145); eGFR > 60.00
--- NOTE | 2024-07-13 09:18 | W.PN.CRS1 ---
Today's Communication / Plan
-
adela change by general surgery today
dispo planning
Assessment/Plan
-
79-year-old female with PMH of HTN, HLD, interstitial lung disease with bronchiectasis, history of pneumonia multiple times, history of spontaneous pneumothorax x 2 who presents 8 days after right hip replacement; 4 days prior to admission, she
started to develop abdominal pain and nausea with decreased bowel function; the abdominal pain and nausea/vomiting continue to worsen; she denies any fevers, chest pain, or urinary symptoms; she does have dyspnea due to the abdominal pain; her last
colonoscopy was 2 years ago which she reports as normal (report not available to me); in the ED, her WBC was 9.3, CR 1.5 and a CTAP was done which shows moderate free air, extraluminal stool adjacent to the mid sigmoid colon with concern of sigmoid
perforation possibly due to diverticulitis
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
- extubated and pressors weaned off by POD 1; initially oliguric, but UOP recovered; A-fib with RVR, stabilized on Amio
- 06/12 CT - c/f subhepatic abscess, d/w [place] and felt that it more likely represents free fluid; remainder post-op changes
- 06/13 opened enrique at inferior midline for murky drainage
- 06/15 mild fascial dehiscence noted; CT -subhepatic abscess increased, fluid along the left gutter; s/p IR drain of subhepatic abscess�20 mL pus
- 06/16 s/p IR drain of left gutter�35 mL of turbid fluid
- 3 complete fascial dehiscence
- 3 vac placed with white sponge at 75mmHg
- 06/29 wbc 11.6, CT - evolving collections in anterior right hepatic lobe (8x4x1), post right hepatic lobe (6o8k6hk), perisplenic ([id number]), left paracolic gutter ([id number]) and right mid-abdomen (1.5x2x1.5cm)
- 06/30 wbc 12.2, IR - adjusted L-sided drain, aspirated anterior right hepatic collection, perisplenic was not safely accessible
- 07/01 vac replaced, wbc 15
- 07/07 - flap closure
- 07/11 - LLQ removal by IR
WBC 12.6 (13.1), Hgb 9.0 (8.2)
Vitals normal
- Continue regular diet
- Lovenox DVT prophylaxis, TEDs/SCDs in place
�Appreciate ID, continue IV Zosyn and micafungin
-RLQ drain in pelvis with purulent, continue. Remove RUQ general surgery drain before discharge.
- Continue ADELA drain (managed by general surgery) - anticipate change today
� OOB with binder
- Dispo: eventual rehab - anticipate by the end of the week
� Pain control with tylenol, oxycodone, dilaudid
� Appreciate hospitalist
-I updated her daughter Susanna via phone, left a voicemail
Subjective Data
Procedure
06/07/2024- Exploratory laparotomy, lysis of his adhesions, sigmoidectomy, creation of end colostomy on
07/06/2024- Delayed primary closure of abdominal wall wound
Subjective Data
Date of Service: July 13, 2024
Patient states she feels 'good'. She denies nausea or vomiting. She has no complaints. She is tolerating a diet.
Objective Data
-
Vital Signs
Temp Pulse Resp BP Pulse Ox
97.8 F 84 16 117/71 96
07/13/24 07:00 07/13/24 08:36 07/13/24 07:00 07/13/24 08:36 07/13/24 07:00
Intake & Output
07/12/24 07/13/24 07/14/24
06:59 06:59 06:59
Intake Total 720 / 720 780 / 780
Output Total 413 / 413
Balance 703 / 703 367 / 367
Intake:
Oral fluids 720 / 720 780 / 780
Output:
Drain Output (Total)
Right Lower Abdomen [place]-
[place]
Right Upper Abdomen [place]-
[place] A
Urine, Voided 400 / 400
Other:
Number of approximated SMALL 1
amounts of urine
Number of approximated MODERATE 2 3
amounts of urine
How many times incontinent 1
SATURATED amount urine
Lab Results
07/13/24 08:12
07/13/24 08:12
Physical Exam
-
General: No Acute Distress and AOx3
Abdomen: Soft, Non Distended, Non Tender and Other (2 PRINCE drains - one subq (serous), other LUQ - green purulent)
Wound: Dressing in Place
[2024-07-13 12:58] LABS: Glucose - Point of Care 163 mg/dl (70-99)
[2024-07-13] MEDS: NOVOLOG FLEXPEN-MODERATE RESISTANCE 1 UNITS SC (13:05)
[2024-07-13 13:41] VITALS: BP 157/78; PULSE 77; O2SAT 97
--- NOTE | 2024-07-13 13:48 | CM ---
Patient chart reviewed
07/06 delayed primary closure of abdominal wound
PT rec Acute Rehab
PLAN: [facility], pending bed availability
[2024-07-13] MEDS: MYCAMINE 105 MG IV (14:00)
[2024-07-13 15:00] VITALS: BP 124/69
[2024-07-13 16:02] VITALS: BP 143/86; PULSE 81; O2SAT 96
--- NOTE | 2024-07-13 17:23 | W.PN.UPDATE ---
Update Note
Progress Note Update
ADELA dressing re-applied, stoma appliance changed, wound looks cdi, healthy without erythema or drainage, sutures intact; stoma PPV, area at 9:00 of stoma with 2mm of skin breakdown at the edge of the stoma and at the border of the ADELA dressing,
reinforced with a wafer. ADELA reinforced circumferentially with cutout for llq drain. Pump with good seal, green light.
[2024-07-13 17:58] LABS: Glucose - Point of Care 101 mg/dl (70-99)
[2024-07-13] MEDS: LOVENOX 40 MG SC (18:15)
[2024-07-13 21:19] LABS: Glucose - Point of Care 210 mg/dl (70-99)
[2024-07-13] MEDS: NEURONTIN 300 MG PO (21:35)
[2024-07-13] MEDS: PEPCID 20 MG PO (21:37)
[2024-07-13] MEDS: NORVASC 5 MG PO (21:37)
[2024-07-13 23:15] VITALS: BP 155/84
[2024-07-14] MEDS: ZOSYN 100 IV ×5 (00:02→23:30)
[2024-07-14 06:00] VITALS: BMI 20.7
[2024-07-14 07:05] VITALS: BP 148/83
[2024-07-14 07:20] LABS: Glucose - Point of Care 122 mg/dl (70-99)
[2024-07-14] MEDS: NOVOLOG FLEXPEN-MODERATE RESISTANCE SC ×3 (07:22→16:54)
[2024-07-14] MEDS: LOPRESSOR 12.5 MG PO ×2 (08:08→20:08)
[2024-07-14] MEDS: NORVASC 5 MG PO ×2 (08:08→20:09)
[2024-07-14] MEDS: COLACE 100 MG PO ×2 (08:08→20:09)
[2024-07-14] MEDS: KCL 20 MEQ PO (08:08)
[2024-07-14] MEDS: NEURONTIN 100 MG PO ×2 (08:09→16:58)
[2024-07-14] MEDS: TAMIFLU 75 MG PO ×2 (08:09→20:09)
--- NOTE | 2024-07-14 08:23 | W.PN.SURGUPD ---
Surgical Update
Surgical Update
Patient seen examined. No complaints. Pain well-controlled. No reports of issues with sal VAC leakage or not holding suction. No reports of nausea or vomiting. Continues to move bowels. No fevers.
No changes from a general surgery perspective. Okay to remove surgical PRINCE drain in the RUQ on discharge.
--- NOTE | 2024-07-14 08:51 | W.PN.CRS1 ---
Addendum entered and electronically signed by Jesse Moreno MD 07/14/24 09:00:
Daughter, Cherry, updated via phone
Original Note:
Today's Communication / Plan
-
As below
Assessment/Plan
-
79-year-old female with PMH of HTN, HLD, interstitial lung disease with bronchiectasis, history of pneumonia multiple times, history of spontaneous pneumothorax x 2 who presents 8 days after right hip replacement; 4 days prior to admission, she
started to develop abdominal pain and nausea with decreased bowel function; the abdominal pain and nausea/vomiting continue to worsen; she denies any fevers, chest pain, or urinary symptoms; she does have dyspnea due to the abdominal pain; her last
colonoscopy was 2 years ago which she reports as normal (report not available to me); in the ED, her WBC was 9.3, CR 1.5 and a CTAP was done which shows moderate free air, extraluminal stool adjacent to the mid sigmoid colon with concern of sigmoid
perforation possibly due to diverticulitis
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
- extubated and pressors weaned off by POD 1; initially oliguric, but UOP recovered; A-fib with RVR, stabilized on Amio
- 06/12 CT - c/f subhepatic abscess, d/w [place] and felt that it more likely represents free fluid; remainder post-op changes
- 06/15 mild fascial dehiscence noted; CT -subhepatic abscess increased, fluid along the left gutter; s/p IR drain of subhepatic abscess�20 mL pus
- 06/16 s/p IR drain of left gutter�35 mL of turbid fluid
- 06/18 complete fascial dehiscence
- 06/29 wbc 11.6, CT - evolving collections in anterior right hepatic lobe (8x4x1), post right hepatic lobe (6a7k1km), perisplenic (5h9i0ei), left paracolic gutter ([id number]) and right mid-abdomen (1.5x2x1.5cm)
- 06/30 wbc 12.2, IR - adjusted L-sided drain, aspirated anterior right hepatic collection, perisplenic was not safely accessible
07/06 delayed primary closure of abdominal wound
- 07/11 - LLQ removal by IR
- 07/14 - ADELA drsg changed; incision well-approximated and healthy
AFVSS, ABD soft, nondistended, appropriately tender; adela dressing intact; ostomy pink with stool, RUQ PRINCE with serous output, RLQ PRINCE with purulent output
No labs today
- Continue regular diet
- Lovenox DVT prophylaxis, TEDs/SCDs in place
� Pain control with tylenol, oxycodone, dilaudid
�Appreciate ID, continue IV Zosyn and micafungin
�Can get CBC every 3 to 4 days while inpatient; on discharge, would check CBC weekly until leukocytosis resolved
-RLQ drain in pelvis with purulent, must stay in place
� Appreciate general surgery; continue adela
�RUQ drain will be removed prior to discharge
� OOB with binder
�Appreciate hospitalist
- Dispo: Okay for rehab when bed available
Subjective Data
Procedure
06/07/2024- Exploratory laparotomy, lysis of his adhesions, sigmoidectomy, creation of end colostomy on
07/06/2024- Delayed primary closure of abdominal wall wound
Subjective Data
Date of Service: July 14, 2024
No overnight events.
Pain controlled.
Denies nausea/vomiting. Tolerating diet.
+ Ostomy function
Pt is OOB.
Objective Data
-
Vital Signs
Temp Pulse Resp BP Pulse Ox
97.0 F 79 18 148/83 98
07/14/24 07:05 07/14/24 07:05 07/14/24 07:05 07/14/24 07:05 07/14/24 07:05
Intake & Output
07/13/24 07/14/24 07/15/24
06:59 06:59 06:59
Intake Total 780 / 780 1200 / 1200
Output Total 413 / 413 180 / 180
Balance 367 / 367 1020 / 1020
Intake:
Oral fluids 780 / 780 900 / 900
IV piggybacks 300 / 300
Output:
Liquid stool amount 130 / 130
Colostomy 130 / 130
Drain Output (Total) 50 / 50
Right Lower Abdomen [place]-
[place]
Right Upper Abdomen [place]-
[place] A
Urine, Voided 400 / 400
Other:
Number of approximated MODERATE 3 2
amounts of urine
How many times incontinent 1
SATURATED amount urine
Lab Results
07/13/24 08:12
07/13/24 08:12
Physical Exam
-
General: No Acute Distress and AOx3
HEENT: Grossly Normal
Abdomen: Soft, Non Distended, Non Tender, No Guarding, No Rebound and Other (Ostomy pink and productive of stool; RLQ drain-30 mL purulent)
Wound: No Signs of Infection and Dressing in Place (Adela dressing in place and functioning; RUQ drain-20 mL serous)
[2024-07-14 12:01] LABS: Glucose - Point of Care 118 mg/dl (70-99)
[2024-07-14] MEDS: MYCAMINE 105 MG IV (12:41)
[2024-07-14 15:20] VITALS: BP 144/83
--- NOTE | 2024-07-14 15:52 | CM ---
Spoke with patient today along with Lizy from [facility]
Discussed no beds available at [facility] & discussed option of [facility] or [facility]
Lizy stated she will call daughter Shanta to discuss options of other [facility] locations.
PLAN: [facility], discuss other [facility] location with dtr Shanta
[2024-07-14 16:46] LABS: Glucose - Point of Care 144 mg/dl (70-99)
[2024-07-14] MEDS: LOVENOX 40 MG SC (16:58)
[2024-07-14 21:33] LABS: Glucose - Point of Care 207 mg/dl (70-99)
[2024-07-14] MEDS: NEURONTIN 300 MG PO (21:40)
[2024-07-14] MEDS: PEPCID 20 MG PO (21:40)
[2024-07-14 23:00] VITALS: BP 147/77
[2024-07-15] MEDS: ZOSYN 100 IV ×3 (05:16→16:40)
[2024-07-15 06:00] VITALS: BMI 19.8
[2024-07-15 06:50] VITALS: BP 145/76
[2024-07-15 07:03] LABS: Glucose - Point of Care 115 mg/dl (70-99)
[2024-07-15] MEDS: NOVOLOG FLEXPEN-MODERATE RESISTANCE SC ×2 (08:01→12:12)
[2024-07-15] MEDS: LOPRESSOR 12.5 MG PO (08:26)
[2024-07-15] MEDS: TAMIFLU 75 MG PO (08:27)
[2024-07-15] MEDS: COLACE 100 MG PO (08:27)
[2024-07-15] MEDS: NEURONTIN 100 MG PO ×2 (08:27→16:40)
[2024-07-15] MEDS: KCL 20 MEQ PO (08:27)
[2024-07-15] MEDS: NORVASC 5 MG PO (08:27)
[2024-07-15 09:20] VITALS: BP 139/75; PULSE 78; O2SAT 99
--- NOTE | 2024-07-15 09:44 | WOUNDNOTE ---
WOC RN note: Confirmed with terence Menchaca that surgical service will change ostomy appliance during ADELA dressing changes during acute care stay unless surgeon contacts WOC RN nurse.
--- NOTE | 2024-07-15 11:00 | WOUNDNOTE ---
WO RN note: Patient's stoma pink, appliance intact. Large amount of soft brown stool in pouch. Patient instructed how to empty pouch. Patient emptied pouch with some assistance and verbal cues. Sacral and heel skin intact. Patient can turn self in
bed. Heels off bed with air chair cushion. Foam chair cushion in recliner chair. Ostomy supplies in room. Patient for possible transfer to [facility] today as per daughter who is visiting patient.
--- NOTE | 2024-07-15 11:00 | W.PN.CRS1 ---
Today's Communication / Plan
-
RUQ drain removed
discharge
Assessment/Plan
-
79-year-old female with PMH of HTN, HLD, interstitial lung disease with bronchiectasis, history of pneumonia multiple times, history of spontaneous pneumothorax x 2 who presents 8 days after right hip replacement; 4 days prior to admission, she
started to develop abdominal pain and nausea with decreased bowel function; the abdominal pain and nausea/vomiting continue to worsen; she denies any fevers, chest pain, or urinary symptoms; she does have dyspnea due to the abdominal pain; her last
colonoscopy was 2 years ago which she reports as normal (report not available to me); in the ED, her WBC was 9.3, CR 1.5 and a CTAP was done which shows moderate free air, extraluminal stool adjacent to the mid sigmoid colon with concern of sigmoid
perforation possibly due to diverticulitis
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
- extubated and pressors weaned off by POD 1; initially oliguric, but UOP recovered; A-fib with RVR, stabilized on Amio
- 06/12 CT - c/f subhepatic abscess, d/w [place] and felt that it more likely represents free fluid; remainder post-op changes
- 06/15 mild fascial dehiscence noted; CT -subhepatic abscess increased, fluid along the left gutter; s/p IR drain of subhepatic abscess�20 mL pus
- 06/16 s/p IR drain of left gutter�35 mL of turbid fluid
- 3 complete fascial dehiscence
- 06/29 wbc 11.6, CT - evolving collections in anterior right hepatic lobe (8x4x1), post right hepatic lobe (6s2o0jd), perisplenic ([id number]), left paracolic gutter ([id number]) and right mid-abdomen (1.5x2x1.5cm)
- 06/30 wbc 12.2, IR - adjusted L-sided drain, aspirated anterior right hepatic collection, perisplenic was not safely accessible
07/06 delayed primary closure of abdominal wound
- 07/11 - LLQ removal by IR
- 07/14 - ADELA drsg changed; incision well-approximated and healthy
AFVSS, ABD soft, nondistended, appropriately tender; adela dressing intact; ostomy pink with stool, RUQ PRINCE with serous output, RLQ PRINCE with purulent output
No labs today
- Continue regular diet
- Lovenox DVT prophylaxis, TEDs/SCDs in place
� Pain control with tylenol, oxycodone, dilaudid
�Appreciate ID, continue IV Zosyn and micafungin
�Can get CBC every 3 to 4 days while inpatient; on discharge, would check CBC weekly until leukocytosis resolved
-RLQ drain in pelvis with purulent, must stay in place
� Appreciate general surgery; continue adela
�RUQ drain removed
� OOB with binder
�Appreciate hospitalist
- Dispo: Okay for rehab when bed available. Likely today.
Subjective Data
Procedure
06/07/2024- Exploratory laparotomy, lysis of his adhesions, sigmoidectomy, creation of end colostomy on
07/06/2024- Delayed primary closure of abdominal wall wound
Subjective Data
Date of Service: July 15, 2024
Patient states she is feeling well today. She denies nausea or vomiting. She is tolerating a diet.
Objective Data
-
Vital Signs
Temp Pulse Resp BP Pulse Ox
97.5 F 76 16 145/76 97
07/15/24 06:50 07/15/24 08:27 07/15/24 06:50 07/15/24 08:27 07/15/24 06:50
Intake & Output
07/14/24 07/15/24 07/16/24
06:59 06:59 06:59
Intake Total 1200 / 1200 1820 / 1820
Output Total 180 / 180 421 / 421
Balance 1020 / 1020 1399 / 1399
Intake:
Oral fluids 900 / 900 1620 / 1620
IV piggybacks 300 / 300 200 / 200
Output:
Liquid stool amount 130 / 130 400 / 400
Colostomy 130 / 130 400 / 400
Drain Output (Total) 50 / 50 /
Right Lower Abdomen [place]-
[place]
Right Upper Abdomen [place]-
[place] A
Other:
Number of approximated MODERATE 2
amounts of urine
Number of approximated LARGE 1 1
amounts of urine
Lab Results
07/13/24 08:12
07/13/24 08:12
Physical Exam
-
General: No Acute Distress and AOx3
Abdomen: Soft, Non Distended, Non Tender and Other (RUQ drain serous, RLQ drain purulent, colostomy warm and pink with output)
Skin: Warm and Dry
Wound: Dressing in Place
[2024-07-15 12:11] LABS: Glucose - Point of Care 134 mg/dl (70-99)
--- NOTE | 2024-07-15 12:46 | WOUNDNOTE ---
[facility] RN Note: [place] texted Isabella Wood, shahab FOWLER and Megan Lobato re: R distal hip incision ecchymotic area appears red around it and included a photo patient R hip. Isabella responded that Dr. Melendrez plans to evaluate.
--- NOTE | 2024-07-15 14:23 | CM ---
Patient seen at bedside.
Spoke with Lizy from [facility] - bed available at [facility] today
IMM explained & signed
Patient for hip xray today
PLAN: [facility]
report #: [phone]
fax #: [phone]
--- NOTE | 2024-07-15 14:52 | W.PN.UPDATE ---
Addendum entered and electronically signed by Vincent Lyon MD 07/15/24 15:43:
I personally evaluated patient. Right hip wound without drainage. Incision minimally tender. Mild erythema. Right hip range of motion without significant pain with internal rotation to 20 degrees, external rotation to 20 degrees, flexion to 90
degrees, abduction to 20 degrees. X-rays from today show right total hip replacement in appropriate position without obvious abnormality. Clearly, she is increased risk for (hip)infection due to her recent bowel concerns and septicemia. At this
juncture, we will continue to follow patient clinically.
Original Note:
Update Note
Progress Note Update
Pt was seen with reported redness about her incision. Area of mild erythema with skin wrinkles present. Gentle hip ROM without pain. DOS 05/30/24.
-Images sent via TT and discussed with Dr. Lyon
-recommend monitoring clinically at this time.
-she is past 6 weeks from DOS- continue with PT/OT
-recommend routine radiographs given 6 weeks postop- ordered.
[2024-07-15] MEDS: MYCAMINE 105 MG IV (14:55)
[2024-07-15 15:27] VITALS: BP 133/62
[2024-07-15] MEDS: LOVENOX 40 MG SC (16:40)
[2024-07-15 16:50] LABS: Glucose - Point of Care 175 mg/dl (70-99)
[2024-07-15] MEDS: NOVOLOG FLEXPEN-MODERATE RESISTANCE 1 UNITS SC (16:50)
--- NOTE | 2024-07-15 22:07 | W.PN.ID1 ---
Date of Service
Date of Service: July 15, 2024
Today's Communication
- c/w with zosyn - plan through 08/10
- c/w micafungin - plan through 08/10
Assessment / Plan
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
E. coli bacteremia due to bowel perforation, abscess
S/p Exploratory laparotomy, lysis of adhesions, sigmoidectomy, creation of end-colostomy
Wound dehiscence
Ileus
Marked leukocytosis
LONG
Hx Recent right hip replacement
Influenza
- 06/07 blood cultures both with anaerobe - bacteroides - source bowel perforation; collection
- blood culture from 06/09 also with a sensitive E coli
- repeat blood cultures x2 06/15 no growth to date
- 06/15 abscess cultures: Pseudomonas aeruginosa, E. coli and Eggerthella lenta
- 07/04 Influenza pcr positive
Recommendations:
- s/p Delayed primary subcutaneous closure of abdominal wall wound with local skin and subcutaneous advancement flaps 07/06
- c/w with zosyn - plan through 08/10
- c/w micafungin - plan through 08/10
- Follow white count
����������������������������������������������������������
Chief Complaint
-: Other (bowel perforation, secondary peritonitis)
Subjective / Review of Systems
afebrile
bp stable
toleraring current therapies
Vital Signs / Physical Exam
Vital Signs
Vital Signs
Temp Pulse Resp BP Pulse Ox
98.4 F 94 16 133/62 98
07/15/24 15:27 07/15/24 15:27 07/15/24 15:27 07/15/24 15:27 07/15/24 15:27
Physical Exam
Constitutional: No Acute Distress
Cardiovascular: Regular Rate and S1/S2; Negative Murmur or Rub
Pulmonary: Clear and Symmetric; Negative Wheezes or Rales
Gastrointestinal: Soft, Non Tender, Non Distended, Normal Bowel Sounds and Other (stoma pink)
Skin: Warm and Dry; Negative Rash or Jaundice
Lines: Other (drain with greenish fluid)
Objective Data
Lab Data
Lab Results
07/13/24 08:12
07/13/24 08:12
PT 14.6 Sec (11.4-14.6) 06/07/24 14:37
INR 1.11 06/07/24 14:37
APTT 27.5 Sec (23.4-35.0) 06/07/24 14:37
Estimated Creat Clear 55 ml/min 07/13/24 08:12
Lactic Acid 1.9 mmol/L (0.7-2.0) 06/10/24 03:33
Total Bilirubin Cancelled 07/11/24 18:27
AST Cancelled 07/11/24 18:27
ALT Cancelled 07/11/24 18:27
Alkaline Phosphatase Cancelled 07/11/24 18:27
Most recent labs reviewed.
Micro Results:
07/04/24 13:05 Influenza Types A & B (EVI) - Final
Nasal Swab Influenza A Positive, NAAT
06/30/24 14:30 Wound Culture - Final
Abscess Escherichia coli
Gram Stain - Final
06/16/24 15:50 Wound Culture - Final
Abdomen Escherichia coli
Gram Stain - Final
06/16/24 15:50 Anaerobic Culture - Final
Abdomen NO ANAEROBES ISOLATED
06/15/24 16:25 Body Fluid Culture - Final
Fluid Pseudomonas aeruginosa
Escherichia coli
Gram Stain - Final
06/15/24 16:25 Anaerobic Culture - Final
Abdomen Eggerthella lenta
06/14/24 12:56 Blood Culture - Final
Blood/Venous No Growth - Final Report
06/14/24 12:22 Blood Culture - Final
Blood/Venous No Growth - Final Report
06/14/24 09:05 Blood Culture - Final
Blood/Venous No Growth - Final Report
06/09/24 15:02 Blood Culture - Final
Blood/Venous Escherichia coli
Gram Stain - Final
06/07/24 10:27 Blood Culture - Final
Blood/Venous Bacteroides uniformis
Gram Stain - Final
06/07/24 10:26 Blood Culture - Final
Blood/Venous Bacteroides uniformis
Gram Stain - Final
06/09/24 12:09 Blood Culture - Final
Blood/Venous No Growth - Final Report
06/07/24 23:30 MRSA Screen - Final
Nose No Methicillin Resistant Staphylococcus aureus isolated.
06/07/24 10:27 Urine Culture - Final
Urine No Significant Growth
06/07/24 09:19 Influenza Types A & B (EVI) - Final
Nasal Swab Negative for Influenza A & B, NAAT
Negative results must be combined with clinical observations
and patient history.
Nucleic Acid Amplification test (NAAT)performed on the
[employer] platform.
Care Review
Plan reviewed with: Physician (Dr Yahir martinez)
== END 2024-07-15 18:03 | DRG 853 ==
LOC: 2 NORTH 13:56
PROVIDERS: Family Medicine; Internal Medicine; Nurse Practitioner Family; Nurse Practitioner Primary Care; Physician Assistant; Radiology Diagnostic Radiology; Radiology Vascular & Interventional Radiology; Registered Nurse; Specialist; Surgery; ADMITTING PHYSICIAN Internal Medicine; ATTENDING PHYSICIAN Surgery; CONSULT PHYSICIAN Internal Medicine Cardiovascular Disease; CONSULT PHYSICIAN Internal Medicine Nephrology; CONSULT PHYSICIAN Physical Medicine & Rehabilitation; EMERGENCY PHYSICIAN Emergency Medicine; FAMILY PHYSICIAN Family Medicine; OTHER PHYSICIAN Internal Medicine; OTHER PHYSICIAN Student in an Organized Health Care Education/Training Program
PROC: 0DN80ZZ Release Small Intestine, Open Approach (ICD-10-PCS; 2024-06-07)
PROC: 0DNU0ZZ Release Omentum, Open Approach (ICD-10-PCS; 2024-06-07)
PROC: 0D1M0Z4 Bypass Descending Colon to Cutaneous, Open Approach (ICD-10-PCS; 2024-06-07)
PROC: 0DNW0ZZ Release Peritoneum, Open Approach (ICD-10-PCS; 2024-06-07)
PROC: 0DTN0ZZ Resection of Sigmoid Colon, Open Approach (ICD-10-PCS; 2024-06-07)
PROC: 0DNB0ZZ Release Ileum, Open Approach (ICD-10-PCS; 2024-06-07)
PROC: 02HV33Z Insertion of Infusion Device into Superior Vena Cava, Percutaneous Approach (ICD-10-PCS; 2024-06-09)
PROC: 3E0436Z Introduction of Nutritional Substance into Central Vein, Percutaneous Approach (ICD-10-PCS; 2024-06-14)
PROC: 0W9H3ZZ Drainage of Retroperitoneum, Percutaneous Approach (ICD-10-PCS; 2024-06-15)
PROC: 30233N1 Transfusion of Nonautologous Red Blood Cells into Peripheral Vein, Percutaneous Approach (ICD-10-PCS; 2024-06-26)
PROC: 0JQ80ZZ Repair Abdomen Subcutaneous Tissue and Fascia, Open Approach (ICD-10-PCS; 2024-07-06)
DX: A41.59 Other Gram-negative sepsis (principal); K55.069 Acute infarction of intestine, part and extent unspecified; K63.1 Perforation of intestine (nontraumatic); K65.8 Other peritonitis; R65.21 Severe sepsis with septic shock; N17.0 Acute kidney failure with tubular necrosis; K65.1 Peritoneal abscess; J84.9 Interstitial pulmonary disease, unspecified; R18.8 Other ascites; E87.1 Hypo-osmolality and hyponatremia; E87.20 Acidosis, unspecified; D62 Acute posthemorrhagic anemia; T81.321A Disruption or dehiscence of closure of internal operation (surgical) wound of abdominal wall muscle or fascia, initial encounter; R04.2 Hemoptysis; K52.89 Other specified noninfective gastroenteritis and colitis; I10 Essential (primary) hypertension; K66.0 Peritoneal adhesions (postprocedural) (postinfection); Y83.6 Removal of other organ (partial) (total) as the cause of abnormal reaction of the patient, or of later complication, without mention of misadventure at the time of the procedure; G31.84 Mild cognitive impairment of uncertain or unknown etiology; J47.9 Bronchiectasis, uncomplicated; E78.2 Mixed hyperlipidemia; J10.1 Influenza due to other identified influenza virus with other respiratory manifestations; I48.91 Unspecified atrial fibrillation; E55.9 Vitamin D deficiency, unspecified; R91.1 Solitary pulmonary nodule; E87.6 Hypokalemia; Z11.52 Encounter for screening for COVID-19; Z79.82 Long term (current) use of aspirin; Z79.891 Long term (current) use of opiate analgesic; Z79.899 Other long term (current) drug therapy; Z87.01 Personal history of pneumonia (recurrent); Z87.891 Personal history of nicotine dependence; Z96.641 Presence of right artificial hip joint
CPT/HCPCS: 88307; 10160; 36600; 49405; 49406; 49423; 49424; 71045; 73502; 74176; 74177; 75984; 76080; 80048; 80051; 80053; 80061; 81003; 81015; 82330; 82728; 82805; 82947; 82962; 83036; 83540; 83550; 83605; 83690; 83721; 83735; 83930; 83935; 84100; 84132; 84300; 84302; 84478; 85014; 85018; 85025; 85027; 85610; 85730; 86850; 86900; 86901; 86920; 87015; 87040; 87070; 87075; 87076; 87077; 87086; 87149; 87186; 87205; 87502; 87811; 92526; 92610; 93005; 93306; 93970; 94002; 94003; 96365; 96375; 97110; 97116; 97163; 97164; 97167; 97168; 97530; 97535; 99152; 99153; 99291; C1729; C1769; C1776; P9016; Q9967

== ENCOUNTER 2024-07-31 20:16 | Emergency (ER) | payer MEDICARE, BC, SELFPAY ==
[2024-07-31 20:27] VITALS: BP 170/77
--- NOTE | 2024-07-31 21:01 | ED.GENMED ---
History of Present Illness
General
Chief Complaint: Post Operative Problem(s)
Source: other (nursing staff from [facility])
Time Seen by Provider: 07/31/24 20:49
History of Present Illness
History of Present Illness:
79-year-old female presents to the emergency room from [facility]. Patient is they are receiving physical therapy after prolonged hospitalization for perforated colon which resulted in a colostomy and required multiple drains for
intra-abdominal abscesses. Patient continues to have a PRINCE drain in the right upper quadrant. The reason the patient was sent to the emergency today is the 'grenade' reservoir is not holding suction. Patient has otherwise been at her baseline.
She has not had any fevers. She is tolerating oral intake. Notes from [facility] re[facility] indicate the patient was evaluated by Dr. Kay 2 days ago and some of her abdominal sutures were removed. She seemed to be stable from a general surgery
standpoint at that time
Phy Exam
Physical Exam
Physical Exam:
General: Awake, Alert, Oriented X3. No acute distress. Patient appears thin and chronically ill.
Vitals: unremarkable
Head: Atraumatic
Eyes: Pupils equal, EOMI
Throat: Airway intact, no exudates
Neck: Trachea midline
Lungs: Clear and equal b/l
Heart: Regular rate, no murmurs
Abd: Soft, Nontender, PRINCE drain noted in the right upper quadrant with bulb connected. When the bulb is compressed in the valve sealed and the bulb immediately feels with air. There is a whistling noise coming from the valve indicating he may not
be holding the airtight seal at the valve itself. No pulsatile mass
Neuro: Nonfocal
Skin: Warm, dry, no rash
Extremities: pulses equal b/l, no edema
Course
Vital Signs
Initial and Last Documented VS:
Initial Vital Signs
Temp Pulse Resp BP Pulse Ox
98.0 F 69 20 170/77 98
07/31/24 20:27 07/31/24 20:27 07/31/24 20:27 07/31/24 20:27 07/31/24 20:27
Last Documented Vital Signs
Temp Pulse Resp BP Pulse Ox
98.2 F 68 20 151/79 98
07/31/24 22:20 07/31/24 22:20 07/31/24 22:20 07/31/24 22:20 07/31/24 22:20
MDM/Problems Addressed
Differential Diagnosis Includes:
Leak from the drain reservoir, leak along the tubing of the drain, displacement of the drain
MDM/Problems Addressed:
Patient presents with malfunction of surgical drain. Resp are changed but suction is not maintained. Case discussed with Dr. Mane who is on-call for general surgery. He reviewed the patient's operative note. He asked that I take a close look
at the entry point of the tubing. There should be a black dot that is either not visible or just at the skin level. This black dot is several centimeters distal from the abdominal wall. This indicates that the tube is too far out and will not
maintain suction. He therefore recommends removing the tubing. The suture holding the tubing in place at already broken down. The suture knot remained in the abdominal wall but was not surrounding the tubing. Suture was removed from the skin and
the tubing removed as well. A dressing was placed over the entry site. Patient stable for discharge back to the rehab floor.
*Pulse Oximetry
Patient hypoxic: no
*Critical Care Note
Total Time (30-74mins, 75-104mins- exclusive of procedures): Not Applicable
Data Reviewed
Review of Other/Old Records Reveals: Operative Reports, Progress Notes and Discharge Summary
Patient Management
Social determinants of health affecting care: Living situation
ED Attending Note
-
Portions of this chart may have been created with voice recognition software.� Occasional wrong word or��sound alike� substitutions may have occurred due to the inherent limitations of voice recognition software.
Discharge Plan
Departure
Patient Disposition: Acute Rehab Facility
Date of Disposition: 07/31/24
Time of Disposition: 22:15
Condition: Good
Discharge Problem:
DISLODGED SURGICAL drain
Instructions: Wound Care (DC)
Prescriptions:
No Action
cholecalciferol (vitamin D3) [Vitamin D3] 25 mcg (1,000 unit) Tablet
25 mcg PO DAILY
Centrum Silver Women 8 mg iron-400 mcg-50 mcg Tablet
1 tab PO DAILY
famotidine 20 mg tablet
20 mg PO HS Qty: 30 0RF
gabapentin 300 mg capsule
300 mg PO HS Qty: 10 0RF
docusate sodium 100 mg Capsule
100 mg PO BID Qty: 30 0RF
amlodipine 5 mg Tablet
5 mg PO HS Qty: 1 0RF
Rx Instructions:
HOLD IF systolic blood pressure <130 while on Oxycodone
gabapentin 100 mg Tablet
100 mg PO BID@0800,1600 Qty: 1 0RF
Rx Instructions:
Patient takes at home. Bedtime dose increased to accommodate for post-surgical pain/sleep.
potassium chloride 20 mEq Tablet,Er Particles/Crystals
20 meq PO DAILY 30 Days Qty: 30 0RF
Rx Instructions:
For 30 days
Zosyn in dextrose (iso-osm) 4.5 gram/100 mL Piggyback
4.5 g IV Q6H Qty: 1200 0RF
Rx Instructions:
Next dose 07/16/2024 at 12:00 am
Micafungin Sodium [Mycamine] 100 MG
Dextrose 5%/Water 100 ml [D5w] 100 ML
105 mls/hr IV Q24H
Ordered By: Megan Lobato PA-C
Last Taken: Unknown
Patient Comments:
Next dose tomoorrow 07/16/24 at 12:00 pm
metoprolol tartrate 25 mg Tablet
12.5 mg PO BID 30 Days Qty: 30 0RF
acetaminophen 325 mg Tablet
650 mg PO Q4H PRN (Reason: Mild pain)
Referrals:
UNKNOWN - PT DOES,NOT KNOW [Family Provider] -
Activity Restrictions/Additional Instructions:
The tubing from the drain was no longer held in place by a suture. Therefore the drain began to pull out and is no longer functional. I discussed the situation with Dr. Mane who is on-call for Dr. Kay. He recommended we remove the drain
as it is nonfunctional at this point. Normal wound care to the site of the drain.
Interventions
Interventions:
*Risk Screen - Suicide Last Done: 07/31/24 20:27
*General Assessment Last Done: 07/31/24 20:27
*Neglect/Abuse Screening Last Done: 07/31/24 20:27
*ED- Fall Risk Assessment Last Done: 07/31/24 20:27
*ED COVID-19 Vaccine History Last Done: 07/31/24 20:27
ED-Skin Assessment Last Done: 07/31/24 21:00
Discharge Date and Time
Print Language: IVORIAN
[2024-07-31 21:38] VITALS: BP 106/77
[2024-07-31 22:20] VITALS: BP 151/79
== END 2024-07-31 22:20 | disposition home or self-care (01) ==
LOC: EMR 20:16
PROVIDERS: EMERGENCY PHYSICIAN Emergency Medicine
DX: T85.628A Displacement of other specified internal prosthetic devices, implants and grafts, initial encounter (principal); K65.1 Peritoneal abscess; Y83.8 Other surgical procedures as the cause of abnormal reaction of the patient, or of later complication, without mention of misadventure at the time of the procedure; Z93.3 Colostomy status; Z88.8 Allergy status to other drugs, medicaments and biological substances
CPT/HCPCS: 99282

== ENCOUNTER → 2024-08-10 14:39 | Outpatient (REF) | payer MEDICARE, BC, SELFPAY | LOC: RAD 14:39 | PROVIDERS: ATTENDING PHYSICIAN Surgery; FAMILY PHYSICIAN Family Medicine | DX: K65.1 Peritoneal abscess (principal) | CPT/HCPCS: 74177; Q9967 ==

== ENCOUNTER 2024-12-27 06:28 | Day surgery (SDC) | payer MEDICARE, BC, SELFPAY | END 2024-12-27 09:34 | disposition home or self-care (01) | LOC: GI 06:28 | PROVIDERS: ATTENDING PHYSICIAN Surgery | DX: K57.32 Diverticulitis of large intestine without perforation or abscess without bleeding (principal); D12.8 Benign neoplasm of rectum; K62.89 Other specified diseases of anus and rectum | CPT/HCPCS: 45385; 88305 ==

== ENCOUNTER 2025-02-17 05:49 | Inpatient (IN) | payer MEDICARE, BC, SELFPAY ==
[2025-02-08 09:06] LABS: Hematocrit 36.3 % (37.0-47.0); Hemoglobin 11.7 g/dL (12.0-16.0); Mean Corp Hgb Conc. 32.2 g/dL (33.0-37.0); Mean Corpuscular Volume 86.8 fL (81.0-99.0); Platelet Count 450 10^3/uL (130-400); Red Cell Dist. Width 12.9 % (11.5-14.5)
[2025-02-08 09:11] LABS: APTT 28.4 Sec (23.4-35.0); INR 0.93; PT 12.9 Sec (11.4-14.6)
[2025-02-08 09:16] LABS: Glycohemoglobin (HgbA1c) 6.1 % (4.0-5.6)
[2025-02-08 09:46] LABS: ALT (SGPT) 38 U/L (0-35); AST (SGOT) 30 U/L (14-36); Albumin 3.9 g/dl (3.5-5.0); Alkaline Phosphatase 131 U/L (38-126); Blood Urea Nitrogen 29 mg/dl (7-17); Calcium 9.5 mg/dl (8.4-10.2); Carbon Dioxide 27 mmol/L (22-30); Chloride 103 mmol/L (98-107); Glucose 95 mg/dl (70-99); Potassium 4.3 mmol/L (3.5-5.1); Sodium 136 mmol/L (135-145); Total Protein 7.5 g/dl (6.3-8.2); eGFR > 60.00
[2025-02-13 11:32] VITALS: BMI 20.6
[2025-02-17] VITALS (37 sets, daily range): BP systolic 20–138; BP diastolic 50–81; BMI 20.6
[2025-02-17] MEDS: HEPARIN 5000 UNITS SC (06:32)
[2025-02-17] MEDS: CELEBREX 200 MG PO (06:32)
[2025-02-17] MEDS: TYLENOL 1000 MG PO (06:32)
[2025-02-17] MEDS: RELISTOR 12 MG SC (06:32)
[2025-02-17] MEDS: NORMOSOL-R/PLASMALYTE-A 1000 IV (06:45)
--- NOTE | 2025-02-17 06:45 | HP.FOC2 ---
Addendum entered and electronically signed by Robi Kay MD 02/24/25 12:41:
#[id number]
Original Note:
Focused History & Physical
Chief Complaint
HPI:
Chief Complaint: Incisional hernia, presence of end colostomy
HPI / Indication for Planned Procedure: Patient is a 79-year-old female presenting for scheduled operative correction of lower abdominal wall incisional hernia and reversal of her end colostomy with the colorectal surgical service, Dr. Moreno. She
underwent sigmoidectomy with end colostomy with prolonged postoperative course notable for intra-abdominal abscesses/infection and a wound/fascial dehiscence. I assisted with delayed primary skin closure and will be assisting with abdominal wall
closure today.
Relevant Past Medical History: Other (Hypertension, recurrent pneumonias)
Relevant Social History: Negative
Relevant Family History: Negative
Relevant Past Surgical History: Positive for (Breast lumpectomy, sigmoidectomy with end colostomy)
Review of Systems
Review of Pertinent Systems: All Systems Negative
Medication
See Medication form for detailed medications: Yes
Medication List (including Herbals & OTC):
cholecalciferol (vitamin D3) 25 mcg (1,000 unit) tablet (Vitamin D3) 25 mcg PO DAILY Supplement #0 tabs 08/01/24
hgizwsfq-rroc-qhnz 8 mg-folic 400 mcg-K 50 mcg-lutein 300 mcg tablet (Centrum Silver Women) 1 tab PO DAILY Supplement supplement #0 tabs 08/01/24
potassium chloride 20 mEq tablet,extended release(part/cryst) 20 meq PO DAILY Supplement 30 days #30 tabs 08/01/24
amlodipine 5 mg tablet 5 mg PO HS 02/10/25
aspirin 81 mg tablet,delayed release 81 mg PO HS 02/10/25
gabapentin 100 mg capsule 100 mg PO .2 - 3 CAP/DAILY Neuropathic pain 02/10/25
metoprolol succinate 25 mg tablet,extended release 24 hr 25 mg PO .DAILY @ 1030 02/10/25
metronidazole 500 mg tablet 500 mg PO DIRECTED pre operative prep 02/10/25
neomycin 500 mg tablet 1 g PO DIRECTED pre operative prep 02/10/25
sodium sul 1.479 gram-potas ch 0.188 gram-magnes sul 0.225 gram tablet (Sutab) 0 tab PO PER PKG DIR pre operative prep 02/10/25
Medications Reviewed: Yes
Allergies and Reactions
Patient has Allergies: Yes
Noted Allergies and Reactions:
Allergy/AdvReac Type Severity Reaction Status Date / Time
iodine Allergy Hives Verified 02/17/25 06:25
Pertinent Physical Exam
All Other Systems: Negative
Head/Neck: Normal
Lungs: Normal
Heart: Normal
Abdomen: Other (Left-sided colostomy. Large left abdominal wall incisional hernia)
Extremities: Normal
Neurological: Normal
Diagnosis / Assessment
79-year-old female presenting for scheduled operative reversal of her end colostomy and concomitant management of her large incisional hernia
Plan / Procedure
Open incisional hernia repair with mesh, probable component separation
Anesthesia/Sedation to be done by Anesthesia Provider: Yes
[2025-02-17 13:51] LABS: Glucose - Point of Care 177 mg/dl (70-99)
--- NOTE | 2025-02-17 13:52 | W.IMMPOSTOP ---
Addendum entered and electronically signed by Jesse Moreno MD 02/17/25 16:03:
Updated daughter, Susanna, over the phone after patient arrived in PACU
Original Note:
Surgical Immed Post Op Note
-
Primary Surgeon: Jesse Moreno MD
Co-surgeon: Robi Kay MD, Artemio Clarke MD
Assisting Surgeon: Mireya Gavin NP
Pre-op Diagnosis: h/o colostomy, incisional hernia
Post-op Diagnosis: h/o colostomy, incisional hernia
Procedure Performed: exlap, lysis of adhesions, reversal of colostomy, take-down of splenic flexure, flexible sigmoidoscopy; repair of incisional hernia by Rahul; cystoscopy and b/l ureteral stents by Vince
Anesthesia Type: general
Specimen / Cultures: Colostomy, residual rectosigmoid
Estimated Blood Loss: 50 mL
IVF: 3.9 L
UOP: 400 mL
Complications: None
Operative Findings: Midline incision through prior laparotomy scar; lysed substantial amount of adhesions, mostly filmy; took down to colostomy; released lateral adhesions and omental adhesions to the descending colon; freed adhesions from the
rectal stump to the uterus; mobilized rectosigmoid by entering the presacral space and dividing the superior rectal artery; freed the rectum along the presacral plane circumferentially; dissected to below the anterior peritoneal reflection;
performed flexible sigmoidoscopy and evacuated stool; passed up EEA sizers and plans transection point at 12 cm from the anal verge; divided the mesorectum with the LigaSure and stapled with the TA 60 with a blue load; prepared proximal end with an
auto-pursestring device and placed the anvil; passed the EEA sizer and then the EEA stapler; extended the pin; at this point, we noticed that the colon around the anvil appeared more ischemic, only involving 1 or so centimeters of bowel; the anvil
was removed and the ischemic colon was resected; the anvil was redone with the auto pursestring device; the bowel looked pink and healthy; performed EEA stapled anastomosis, donuts intact x 2, negative leak test; although the anastomosis was not
taut, there did appear to be some tension in the descending colon as it came over the pelvic brim; using blunt and sharp dissection, mobilized these splenic flexure to just beyond the spleen and there was no longer any question about tension;
Rahul will dictate his portion of the hernia repair
--- NOTE | 2025-02-17 14:06 | OR.RPT ---
Operative Report
Operative Report
DATE OF OPERATION: 02/17/2025
SURGEON: Jesse Moreno MD
CO-SURGEON: Robi Kay MD; Artemio Clarke MD
PREOPERATIVE DIAGNOSIS: History of colostomy, incisional hernia, history of stercoral colitis
POSTOPERATIVE DIAGNOSIS: History of colostomy, incisional hernia, history of stercoral colitis
OPERATION: Exploratory laparotomy, colostomy reversal, lysis of adhesions greater than 1 hour, repair of serosal injury, take-down of the splenic flexure, flexible sigmoidoscopy; preoperative cystoscopy and bilateral ureteral stents by Dr. Clarke;
bridging mesh repair of incisional hernia by Dr. Kay
ASSISTANTS:
1. Janina Weber NP
ANESTHESIA: General
ESTIMATED BLOOD LOSS: 50 mL
IVF: 3.9 L
URINE OUTPUT: 400 mL
FINDINGS:
1. Significant adhesions between the small bowel, colostomy, anterior abdominal wall and pelvic structures, lysed meticulously
2. Performed EEA stapled anastomosis between distal descending colon and proximal rectum at about 12 cm from the anal verge; donuts intact x 2, negative leak test, anastomosis intact on flexible sigmoidoscopy
SPECIMENS:
1. Colostomy
2. Residual rectosigmoid colon
DRAINS: 19 [place] Juan drain placed in subcutaneous space
COMPLICATIONS: No immediate complications.
INDICATIONS: The patient is a 79-year-old female who initially presented to the [facility] ED with abdominal pain 8 days after a total hip repair. She was found to have perforated stercoral colitis requiring urgent Sue's procedure. Her
postoperative course was complicated by intra-abdominal abscesses, A-fib, fascial dehiscence and a subsequent surgery for skin flap closure of the fascial dehiscence. From these initial surgeries, she completely recovered and requested reversal of
her colostomy. The operation was discussed with the patient in detail, including the risks, benefits and alternatives. Risks described included, but not limited to, bleeding, infection, anastomotic leak, damage to nearby structures (i.e.- ureter,
bowel, solid organs), recurrent hernia, need for diverting ostomy creation, inability to reverse the ostomy, and anesthetic risks, including but not limited to OK, stroke, DVT/PE and respiratory failure. The patient understood and agreed to proceed.
PROCEDURE IN DETAIL: The patient was taken to the operating room and placed on the operating table in supine position. Sequential compression devices were placed bilaterally. General anesthesia was induced and the patient was intubated without
complication. The patient was placed in lithotomy position with both arms in extended position secured to armboards. Urology performed a cystoscopy, placed bilateral ureteral stents and placed a Cruz. The ostomy site was sutured closed with 2-0
Vicryl. The abdomen was shaved, prepped and draped in a sterile fashion. A time-out was performed verifying the correct patient, procedure, operative site, positioning, and special equipment. Anesthesia placed a nasogastric tube. Ancef and Flagyl
were given preincision.
Using a 15 blade scalpel, a midline incision was made through her prior midline scar. This was meticulously taken down to the hernia sac. The peritoneum of the hernia sac was elevated and divided with Metzenbaum scissors. Entry into the abdomen
was achieved without any injury to nearby structures. There were multiple filmy adhesions from the underlying small bowel to the anterior abdominal wall. The peritoneal incision was carefully opened to the length of the skin incision, taking down
any intervening adhesions. There were innumerable adhesions throughout the abdomen between loops of small bowel and the anterior abdominal wall as well as loops of small bowel to the pelvic inlet. The majority of this adhesions were delicately
lysed with a combination of sharp dissection, blunt dissection and electrocautery. Care was taken to avoid injury to the small bowel. There was 1 punctate serosal injury noted from the electrocautery device. This was smaller than 2 mm and was
oversewn with imbricating 3-0 Vicryl stitches. Adhesions from the omentum to the small bowel were taken down and the omentum was retracted over the transverse colon. There were adhesions between the upper anterior abdominal wall to the liver and
falciform. These were taken down and the falciform was cut back for the future mesh placement.
Using electrocautery, the mucocutaneous junction was divided circumferentially around the colostomy. This was taken down to the level of the fascia with meticulous dissection, in order to prevent injury to the colon. Hemostasis was achieved. To
prepare the colon for the anvil, I selected a point just proximal to the colostomy. I divided the mesentery using clamps, Metzenbaum scissors and 0 Vicryl ties. Blue towels were used to exclude the operative field from contamination. The colostomy
was excised with Bovie electrocautery and passed off as specimen. A ringed forceps clamp was used to ensure adequate diameter of the colon. An auto-pursestring device was used to place a pursestring around the edge of the colon. The anvil was
placed and the pursestring was closed around it. The anvil staple line was cleared from any intervening mesentery and fat. Outer gloves were changed and blue towels removed.
Lateral attachments from the descending colon were freed and the mesentery was mobilized from the retroperitoneum with a combination of sharp and blunt dissection. This was taken up to the splenic flexure. In the pelvis, there were adhesions from
the rectal stump to the uterus, which were meticulously divided with sharp dissection. Long Babcocks were placed on the staple line and the rectosigmoid was elevated. I dissected posteriorly in the presacral space using the laparoscopic LigaSure.
I scored the peritoneum on the lateral aspects of the rectum extending across the anterior peritoneal reflection. Dr. Kay performed a flexible sigmoidoscopy and evacuated stool from the rectal stump. The mucosa appeared healthy up to the level
of the proximal rectum. EEA sizers were passed. There was a significant kink in the proximal rectum, so I planned for transection at about 12 cm from the anal verge. I created a posterior plane and the divided the mesorectum with the LigaSure
device. I stapled at this point with a TA 60 with a blue load. EEA sizers were passed up once more, and the largest EEA sizer was accommodated with adequate mobilization. I passed up the EEA stapler to the staple line and extended the pin. At
this point, it was noted that the colon at the anvil staple line appeared ischemic. The amount of ischemia involved only about 1 to 2 cm of the colon. While I held the EEA stapler in place, Dr. Kay revised the anvil by resecting the ischemic
segment, replacing the pursestring using the auto-pursestring device and secured the anvil in place. After waiting a few minutes, the colon remained pink and healthy. The anvil was mated to the EEA stapler and the EEA stapler was closed, ensuring
no twist in the mesentery. The stapler was closed for 1 minute and then fired. It was carefully removed without issue. Both donuts were intact. The pelvis was filled with saline and I advanced the flexible sigmoidoscope transanally once again.
The colorectum was insufflated and no bubbling was noted. The anastomosis appeared healthy without bleeding on endoscopic visualization.
Although the anastomosis was not taut, there did appear to be some tension along the descending colon as it came over the pelvic brim. We performed additional mobilization of the splenic flexure up to the level of the distal transverse colon.
There was no longer any tension along the entire length of the left colon. The left upper quadrant was assessed and was hemostatic.
At this point, Dr. Kay performed to the incisional hernia repair using a bridging mesh, which will be dictated by him separately. I assisted him with exposure and retraction during this portion of the procedure, as well as securing the mesh in
place and closing the incision in multiple layers. I partially closed the ostomy wound down by placing a 2-0 Vicryl deep dermal stitch in a pursestring fashion and tightened this, leaving a 1 cm hole. I packed the colostomy wound with
Betadine-soaked packing and dressed this with gauze and Tegaderm.
At this point, the procedure was complete. The patient was awoken and extubated without complication. The right stent was removed, and the left stent and Cruz were left in place. All needle, sponge and instrument counts were reported as correct.
The patient tolerated the procedure well and was transferred to the recovery room in stable condition with the cruz in place.
Dr. Kay assisted with the colostomy reversal portion of the case, providing traction, countertraction and additional assistance as reported above. I was present for the entire duration of the case.
DICTATED BY: Jesse Moreno MD
[2025-02-17] MEDS: OFIRMEV 100 IV ×2 (14:10→19:37)
[2025-02-17] MEDS: DILAUDID PCA 30 IV (14:21)
[2025-02-17 14:26] LABS: Hematocrit 35.6 % (37.0-47.0); Hemoglobin 11.6 g/dL (12.0-16.0); Mean Corp Hgb Conc. 32.6 g/dL (33.0-37.0); Mean Corpuscular Volume 88.1 fL (81.0-99.0); Platelet Count 401 10^3/uL (130-400); Red Cell Dist. Width 13.0 % (11.5-14.5)
[2025-02-17 14:29] LABS: Blood Urea Nitrogen 23 mg/dl (7-17); Calcium 7.7 mg/dl (8.4-10.2); Carbon Dioxide 22 mmol/L (22-30); Chloride 103 mmol/L (98-107); Estimated Creatinine Clearance 53 ml/min; Glucose 177 mg/dl (70-99); Potassium 4.1 mmol/L (3.5-5.1); Sodium 132 mmol/L (135-145); eGFR > 60.00
[2025-02-17 15:00] LABS: Nucleated Red Blood Cells % 0 %
[2025-02-17] MEDS: NSS 1000 IV (17:27)
--- NOTE | 2025-02-17 17:57 | PTCARENOTE ---
Patient admitted from pacu post incisional hernia repair with colostomy reversal.The patient is drowsy but arousable.she will rate her pain at a 7 out of 10 but then falls back asleep.The midline abdominal dressing is intact without drainage.Vital
signs are stable.The patient is in her bed with the call booth in reach.
[2025-02-18] MEDS: OFIRMEV 100 IV ×3 (02:02→13:59)
[2025-02-18 04:35] VITALS: BP 117/64
[2025-02-18] MEDS: LOPRESSOR 2.5 MG IV ×4 (06:32→23:57)
[2025-02-18 07:22] LABS: Hematocrit 32.3 % (37.0-47.0); Hemoglobin 10.2 g/dL (12.0-16.0); Mean Corp Hgb Conc. 31.6 g/dL (33.0-37.0); Mean Corpuscular Volume 89.2 fL (81.0-99.0); Nucleated Red Blood Cells % 0 %; Platelet Count 385 10^3/uL (130-400); Red Cell Dist. Width 13.2 % (11.5-14.5)
[2025-02-18 07:33] LABS: Blood Urea Nitrogen 26 mg/dl (7-17); Calcium 7.9 mg/dl (8.4-10.2); Carbon Dioxide 25 mmol/L (22-30); Chloride 104 mmol/L (98-107); Estimated Creatinine Clearance 47 ml/min; Glucose 121 mg/dl (70-99); Magnesium 2.7 mg/dl (1.6-2.3); Potassium 4.2 mmol/L (3.5-5.1); Sodium 133 mmol/L (135-145); eGFR > 60.00
[2025-02-18 07:35] VITALS: BP 141/68
[2025-02-18] MEDS: RELISTOR 12 MG SC (09:05)
[2025-02-18] MEDS: PROTONIX IV 40 MG IV (09:06)
[2025-02-18] MEDS: ZOFRAN 4 MG IV ×2 (09:08→23:52)
--- NOTE | 2025-02-18 10:32 | W.PN.GS2 ---
Addendum entered and electronically signed by Thien Hurst MD 02/18/25 10:50:
Patient seen and examined.
Reports abdominal discomfort with movement. No nausea or vomiting. No flatus or BM. Afebrile.
Gen: NAD
HEENT: non-bilious, minimal output
Abd: soft, tender diffusely, minimal distension, non-peritoneal, dressings c/d/i
79 yo female presenting for colostomy takedown and repair of incisional hernia
POD #1 open lysis of adhesions, reversal of colostomy, take-down of splenic flexure, flexible sigmoidoscopy (Josh); repair of incisional hernia by Rahul; cystoscopy and b/l ureteral stents by Vince
AFVSS
Reactive leukocytosis present, trending down
Mild hyponatremia, improved
Mild acute blood loss anemia from expected losses with component of hemodilution with h/o chronic anemia
Await bowel recovery
Not utilizing COURT MANAGER well
Removed 2nd stent at bedside (both now out)
Plan:
-- Change from COURT MANAGER to PRN on demand dosing. Scheduled Tylenol/Toradol
-- Increase IVF to 100ml/hr given length of procedure and open abdomen with prep
-- OOB/ambulate
-- NPO and C/W NGT
-- Void trial tomorrow
-- GI: PPI
-- DVT: Lovenox/SCDs
Original Note:
Today's Communication / Plan
-
pain management
npo with ngt
Assessment / Plan
-
79 yo female presenting for colostomy takedown and repair of incisional hernia
POD #1 open lysis of adhesions, reversal of colostomy, take-down of splenic flexure, flexible sigmoidoscopy (Josh); repair of incisional hernia by Rahul; cystoscopy and b/l ureteral stents by Vince
AFVSS
Await bowel recovery
Reactive leukocytosis present, trending down
Mild hyponatremia, improved
Mild acute blood loss anemia from expected losses with component of hemodilution with h/o chronic anemia
Not utilizing COURT MANAGER well
Removed 2nd stent at bedside (both now out)
Plan:
Change from COURT MANAGER to prn on demand dosing. Scheduled Tylenol/Toradol
Increase IVF to 100ml/hr
OOB/ambulate
NPO and C/W NGT
Follow I&O's
Follow labs
PPI for GI ppx
Void trial tomorrow
Lovenox/SCDs for VTE ppx
Subjective Data
-
Date of Service: February 18, 2025
Pt seen and examined at bedside with Dr. Hurst. Denies n/v. Pain control has been a bit of an issue limiting movement. Not yet passing flatus.
Objective Data
-
Intake and Output
02/17/25 02/18/25 02/19/25
06:59 06:59 05:59
Intake Total 1360 / 1360
Output Total 1590 / 1590
Balance -230 / -230
Intake:
Oral fluids 120 / 120
IV fluids (Total) 1050 / 1050
Normosol 400 / 400
IV piggybacks 100 / 100
Amount instilled into GI Tube ( 90 / 90
Total)
[place] Sump 90 / 90
Output:
Drain Output (Total) 90 / 90
Right Lower Abdomen Darius- 90 / 90
[place]
Gastrointestinal tube output ( 100 / 100
Total)
[place] Sump 100 / 100
Urine, Cruz 1400 / 1400
Vital Signs
Temp Pulse Resp BP Pulse Ox
98 F 75 16 141/68 97
02/18/25 07:35 02/18/25 07:35 02/18/25 07:35 02/18/25 07:35 02/18/25 07:35
Lab Results
02/18/25 06:37
02/18/25 06:37
Calcium 7.9 mg/dl (8.4-10.2) L 02/18/25 06:37
Magnesium 2.7 mg/dl (1.6-2.3) H 02/18/25 06:37
Total Bilirubin 0.5 mg/dl (0.2-1.3) 02/08/25 06:58
AST 30 U/L (14-36) 02/08/25 06:58
ALT 38 U/L (0-35) H 02/08/25 06:58
Alkaline Phosphatase 131 U/L (38-126) H 02/08/25 06:58
Total Protein 7.5 g/dl (6.3-8.2) 02/08/25 06:58
Albumin 3.9 g/dl (3.5-5.0) 02/08/25 06:58
Physical Exam
-
Gen: Uncomfortable appearing
Abd: ABD soft, diffusely tender, ND, NGT with minimal outputs
Incision with intact dressing, PRINCE with ssf present
Patient has a cruz catheter: Yes
Patient has a central line: No
[2025-02-18] MEDS: NSS 1000 IV ×2 (11:06→20:48)
[2025-02-18 11:26] VITALS: BP 154/73
--- NOTE | 2025-02-18 12:30 | CM ---
I.A Completed By NEETA Miller. Patient is sleeping so checked chart.
Patient lives alone in a condo, 5 steps to enter, has a RW, cane, shower chair, and CPAP. Patient has or had services via [facility] and patient was a [facility] before.
PCP: Scotty Ceballos
Pharmacy: [facility].
Case Management will follow with discharge plan updates as hospitalization progresses. PLAN: Anticipate Home PT vs. SNF
[2025-02-18 13:52] VITALS: PULSE 75; O2SAT 95
[2025-02-18] MEDS: DILAUDID 0.5 MG IV ×3 (14:23→23:53)
[2025-02-18] MEDS: LOVENOX 40 MG SC (17:12)
[2025-02-18 19:16] VITALS: BP 145/74
[2025-02-18 23:25] VITALS: BP 156/93
[2025-02-19] MEDS: COMPAZINE 5 MG IV ×2 (01:20→14:47)
[2025-02-19] MEDS: DILAUDID 0.5 MG IV ×4 (01:49→21:23)
[2025-02-19] MEDS: TORADOL 15 MG IV ×2 (01:58→21:21)
[2025-02-19 04:05] VITALS: BP 156/81
[2025-02-19] MEDS: NSS 1000 IV ×2 (05:36→20:38)
[2025-02-19] MEDS: LOPRESSOR 2.5 MG IV ×4 (05:40→23:42)
[2025-02-19 06:54] LABS: Blood Urea Nitrogen 23 mg/dl (7-17); Calcium 8.3 mg/dl (8.4-10.2); Carbon Dioxide 24 mmol/L (22-30); Chloride 108 mmol/L (98-107); Estimated Creatinine Clearance 47 ml/min; Glucose 77 mg/dl (70-99); Potassium 4.0 mmol/L (3.5-5.1); Sodium 137 mmol/L (135-145); eGFR > 60.00
[2025-02-19 07:00] VITALS: BP 165/91
[2025-02-19 08:26] LABS: Hematocrit 31.7 % (37.0-47.0); Hemoglobin 10.2 g/dL (12.0-16.0); Mean Corp Hgb Conc. 32.2 g/dL (33.0-37.0); Mean Corpuscular Volume 87.3 fL (81.0-99.0); Platelet Count 406 10^3/uL (130-400); Red Cell Dist. Width 13.6 % (11.5-14.5)
[2025-02-19] MEDS: RELISTOR 12 MG SC (08:48)
[2025-02-19] MEDS: PROTONIX IV 40 MG IV (08:48)
[2025-02-19] MEDS: ZOFRAN 4 MG IV (09:00)
--- NOTE | 2025-02-19 09:34 | W.PN.GS2 ---
Addendum entered and electronically signed by Thien Hurst MD 02/19/25 10:40:
Patient seen and examined. Agree with assessment plan as documented below.
Original Note:
Today's Communication / Plan
-
Pain management
c/w NGT
Assessment / Plan
-
79 yo female presenting for colostomy takedown and repair of incisional hernia
POD #2 open lysis of adhesions, reversal of colostomy, take-down of splenic flexure, flexible sigmoidoscopy (Josh); repair of incisional hernia (Rahul); cystoscopy and b/l ureteral stents (Vince)
AFVSS
Await bowel recovery
Reactive leukocytosis present, trending down
Mild hyponatremia, resolved
H/H stable
Plan:
Scheduled Tylenol/Toradol, prn dilaudid
C/W IVF
OOB/ambulate. PT following
NPO and C/W NGT
Follow I&O's
Follow labs
PPI for GI ppx
Void trial today
Lovenox/SCDs for VTE ppx
Subjective Data
-
Date of Service: February 19, 2025
Pt seen and examined at bedside with Dr. Hurst. Denies vomiting but occasional nausea overnight. Notes she had a rough night d/t pain and nausea. Feels a bit better today. No flatus/bm's as of yet. OOB to chair.
Objective Data
-
Intake and Output
02/18/25 02/19/25 02/20/25
06:59 05:59 06:59
Intake Total 1360 / 1360 2670 / 2670
Output Total 1590 / 1590 1510 / 1510
Balance -230 / -230 1160 / 1160
Intake:
Oral fluids 120 / 120 240 / 240
IV fluids (Total) 1050 / 1050 2280 / 2280
Normosol 400 / 400
IV piggybacks 100 / 100
Amount instilled into GI Tube ( 150 / 150
Total)
[place] Sump 150 / 150
Output:
Drain Output (Total) 60 / 60
Right Lower Abdomen Darius- 60 / 60
[place]
Gastrointestinal tube output ( 375 / 375
Total)
[place] Sump 375 / 375
Urine, Cruz 1400 / 1400 1075 / 1075
Other:
Number of approximated SMALL 1
amounts of urine
Number of approximated MODERATE 1
amounts of urine
Vital Signs
Temp Pulse Resp BP Pulse Ox
98 F 83 18 165/91 95
02/19/25 07:00 02/19/25 07:00 02/19/25 07:00 02/19/25 07:00 02/19/25 07:00
Lab Results
02/19/25 05:32
02/19/25 05:32
Calcium 8.3 mg/dl (8.4-10.2) L 02/19/25 05:32
Magnesium 2.7 mg/dl (1.6-2.3) H 02/18/25 06:37
Total Bilirubin 0.5 mg/dl (0.2-1.3) 02/08/25 06:58
AST 30 U/L (14-36) 02/08/25 06:58
ALT 38 U/L (0-35) H 02/08/25 06:58
Alkaline Phosphatase 131 U/L (38-126) H 02/08/25 06:58
Total Protein 7.5 g/dl (6.3-8.2) 02/08/25 06:58
Albumin 3.9 g/dl (3.5-5.0) 02/08/25 06:58
Physical Exam
-
Gen: Uncomfortable appearing
Abd: ABD soft, diffusely tender, ND, NGT with minimal bilious outputs
Incision with intact dressing, PRINCE with ssf present
Patient has a cruz catheter: Yes
Patient has a central line: No
[2025-02-19] MEDS: OFIRMEV 100 IV ×3 (10:19→22:32)
[2025-02-19 11:00] VITALS: BP 160/80
[2025-02-19 15:00] VITALS: BP 166/87
[2025-02-19] MEDS: LOVENOX 40 MG SC (16:59)
[2025-02-19 19:00] VITALS: BP 157/85
[2025-02-19 23:00] VITALS: BP 156/78
[2025-02-20 03:18] VITALS: BP 153/83
[2025-02-20] MEDS: OFIRMEV 100 IV ×4 (04:04→22:18)
[2025-02-20] MEDS: LOPRESSOR 2.5 MG IV ×4 (06:34→23:44)
[2025-02-20 07:11] LABS: Hematocrit 29.2 % (37.0-47.0); Hemoglobin 9.5 g/dL (12.0-16.0); Mean Corp Hgb Conc. 32.5 g/dL (33.0-37.0); Mean Corpuscular Volume 87.2 fL (81.0-99.0); Platelet Count 352 10^3/uL (130-400); Red Cell Dist. Width 13.7 % (11.5-14.5)
[2025-02-20 07:35] VITALS: BP 166/80
[2025-02-20 07:37] LABS: Blood Urea Nitrogen 23 mg/dl (7-17); Calcium 8.5 mg/dl (8.4-10.2); Carbon Dioxide 24 mmol/L (22-30); Chloride 109 mmol/L (98-107); Estimated Creatinine Clearance 39 ml/min; Glucose 76 mg/dl (70-99); Sodium 139 mmol/L (135-145); eGFR 51.43
[2025-02-20] MEDS: NSS IV (07:40)
[2025-02-20 07:42] LABS: Potassium 3.7 mmol/L (3.5-5.1)
[2025-02-20] MEDS: RELISTOR 12 MG SC (08:10)
[2025-02-20] MEDS: PROTONIX IV 40 MG IV (08:10)
--- NOTE | 2025-02-20 08:58 | W.PN.GS2 ---
Today's Communication / Plan
-
ngt clamp trial
Assessment / Plan
-
79 yo female presenting for colostomy takedown and repair of incisional hernia
POD #3 open lysis of adhesions, reversal of colostomy, take-down of splenic flexure, flexible sigmoidoscopy (Josh); repair of incisional hernia (Rahul); cystoscopy and b/l ureteral stents (Vince)
AFVSS
Await bowel recovery
Reactive leukocytosis present, trending down
Cr with mild elevation today to 1.1
H/H relatively stable with slight drift today
Plan:
Scheduled Tylenol, prn dilaudid. Hold NSAIDs given rise in Cr
PO metoprolol converted to IV while NPO, c/w telemetry
C/W IVF
OOB/ambulate. PT following
Continue NPO
Clamp trial of NGT
Follow I&O's
Follow labs
PPI for GI ppx
c/w PRINCE
Lovenox/SCDs for VTE ppx
Subjective Data
-
Date of Service: February 20, 2025
Pt seen and examined at bedside with Dr. Sommer. Denies nausea today. Not yet passing flatus. OOB to chair. Pain improving but still uncomfortable.
Objective Data
-
Intake and Output
02/19/25 02/20/25 02/21/25
05:59 06:59 06:59
Intake Total 2670 / 2670 120 / 120
Output Total 1510 / 1510 135 / 135
Balance 1160 / 1160 -15 / -15
Intake:
Oral fluids 240 / 240 30 / 30
IV fluids (Total) 2280 / 2280
Amount instilled into GI Tube ( 150 / 150 90 / 90
Total)
[place] Sump 150 / 150 90 / 90
Output:
Drain Output (Total) 60 / 60 25 / 25
Right Lower Abdomen Darius-
[place]
Gastrointestinal tube output ( 375 / 375 110 / 110
Total)
[place] 375 / 375 110 / 110
Urine, Cruz 1075 / 1075
Other:
Number of approximated SMALL 1
amounts of urine
Number of approximated MODERATE 1
amounts of urine
Vital Signs
Temp Pulse Resp BP Pulse Ox
97.8 F 72 16 166/80 96
02/20/25 07:35 02/20/25 07:35 02/20/25 07:35 02/20/25 07:35 02/20/25 07:35
Lab Results
02/20/25 06:28
02/20/25 06:28
Calcium 8.5 mg/dl (8.4-10.2) 02/20/25 06:28
Magnesium 2.7 mg/dl (1.6-2.3) H 02/18/25 06:37
Total Bilirubin 0.5 mg/dl (0.2-1.3) 02/08/25 06:58
AST 30 U/L (14-36) 02/08/25 06:58
ALT 38 U/L (0-35) H 02/08/25 06:58
Alkaline Phosphatase 131 U/L (38-126) H 02/08/25 06:58
Total Protein 7.5 g/dl (6.3-8.2) 02/08/25 06:58
Albumin 3.9 g/dl (3.5-5.0) 02/08/25 06:58
Physical Exam
-
Gen: NAD
Abd: ABD soft, diffusely tender (mild), ND, NGT with minimal gastric outputs
Midline enrique intact, packing from stoma site removed, PRINCE with ssf present
Patient has a cruz catheter: No
Patient has a central line: No
[2025-02-20] MEDS: NSS (PRESERVATIVE FREE) 10 ML IV (09:33)
[2025-02-20] MEDS: NSS 1000 IV ×2 (09:33→23:46)
--- NOTE | 2025-02-20 10:13 | W.PN.CRS1 ---
Today's Communication / Plan
-
ngt clamp trial per general sx
OOB
trend labs
Assessment/Plan
-
POD#3 exlap, lysis of adhesions, reversal of colostomy, take-down of splenic flexure, flexible sigmoidoscopy; repair of incisional hernia by Rahul; cystoscopy and b/l ureteral stents by Vince
Vitals: normal
WBC: 18.8 (19.4), Hgb 9.5 (10.2)
NGT output: 110ml
-NGT clamp trial per general surgery
-Pain control: Tylenol standing, Dilaudid PRN. Toradol held given creatinine rise (1.1 from 0.9)
-OOB with PT
-Voiding post cruz removal
-Trend labs
-Maintain PRINCE drain for now
-Lovenox for DVT prophylaxis. TEDS/SCDs in place.
-OR pathology pending
-Dispo: home with PT vs SNF
Subjective Data
Procedure
02/17/2025- exlap, lysis of adhesions, reversal of colostomy, take-down of splenic flexure, flexible sigmoidoscopy; repair of incisional hernia by Rahul; cystoscopy and b/l ureteral stents by Vince
Subjective Data
Date of Service: February 20, 2025
Patient states she feels intermittent pain which helps with IV pain medication. Denies nausea or vomiting. She has been getting out of bed and walking. Denies bowel function yet.
Objective Data
-
Vital Signs
Temp Pulse Resp BP Pulse Ox
97.8 F 72 16 166/80 96
02/20/25 07:35 02/20/25 07:35 02/20/25 07:35 02/20/25 07:35 02/20/25 07:35
Intake & Output
02/19/25 02/20/25 02/21/25
05:59 06:59 06:59
Intake Total 2670 / 2670 120 / 120
Output Total 1510 / 1510 135 / 135
Balance 1160 / 1160 -15 / -15
Intake:
Oral fluids 240 / 240 30 / 30
IV fluids (Total) 2279 / 2279
Amount instilled into GI Tube ( 150 / 150 90 / 90
Total)
[place] Sump 150 / 150 90 / 90
Output:
Drain Output (Total)
Right Lower Abdomen Darius-
[place]
Gastrointestinal tube output ( 375 / 375 110 / 110
Total)
[place] Sump 375 / 375 110 / 110
Urine, Cruz 1075 / 1075
Other:
Number of approximated SMALL 1
amounts of urine
Number of approximated MODERATE 1
amounts of urine
Lab Results
02/20/25 06:28
02/20/25 06:28
Physical Exam
-
General: No Acute Distress and AOx3
Abdomen: Soft, Non Distended and Non Tender
Skin: Warm and Dry
Wound: Dressing in Place
Incision: Clear, Dry, Intact
[2025-02-20 11:51] VITALS: BP 171/88
[2025-02-20 12:15] VITALS: BMI 20.6
[2025-02-20 14:32] VITALS: BMI 21.3
--- NOTE | 2025-02-20 15:28 | PTCARENOTE ---
Per MD orders, Pt's NGT clamped, no pain or nausea, after 5 hours, no output upon hooking back to suction. NGT removed.
--- NOTE | 2025-02-20 16:47 | CM ---
CM following for discharge planning. Due to living alone, SNF may be her best option, although Koki does not want to go to SNF.
OT consult requested via [facility].
--- NOTE | 2025-02-20 18:04 | PTCARENOTE ---
pt tolerating removal of NG, awaiting clarification IV and PO toprolol.
[2025-02-20 18:10] VITALS: BP 170/80
[2025-02-20] MEDS: LOVENOX 40 MG SC (18:25)
[2025-02-20 19:05] VITALS: BP 152/77
[2025-02-20] MEDS: NEURONTIN 100 MG PO (19:37)
[2025-02-20] MEDS: NORVASC 5 MG PO (22:18)
[2025-02-20] MEDS: ASPIR LOW (ENTERIC COATED) 81 MG PO (22:19)
[2025-02-20 23:12] VITALS: BP 151/77
[2025-02-21 03:05] VITALS: BP 161/80
[2025-02-21] MEDS: OFIRMEV 100 IV (04:06)
[2025-02-21] MEDS: LOPRESSOR 2.5 MG IV (05:28)
[2025-02-21 06:00] VITALS: BMI 20.9
--- NOTE | 2025-02-21 06:55 | W.PN.GS2 ---
Today's Communication / Plan
-
`
Assessment / Plan
-
79 yo female presenting for colostomy takedown and repair of incisional hernia
POD #4 open lysis of adhesions, reversal of colostomy, take-down of splenic flexure, flexible sigmoidoscopy (Josh); repair of incisional hernia (Rahul); cystoscopy and b/l ureteral stents (Vince)
AFVSS
overall doing well post op, signs of returning GI function
AM labs pending
PRINCE with expected character/quantity of drainage
Plan:
start clear liquid diet today
Scheduled Tylenol, prn dilaudid. Hold NSAIDs given rise in Cr
OOB/ambulate. PT following
PPI for GI ppx
c/w PRINCE
Lovenox/SCDs for VTE ppx
Subjective Data
-
Date of Service: February 21, 2025
patient seen and examined
reports incisional/abdominal pain well controlled
no nausea since NGT removed
passing flatus
hungry
Objective Data
-
Intake and Output
02/19/25 02/20/25 02/21/25
05:59 06:59 06:59
Intake Total 2670 / 2670 120 / 120 1260 / 1260
Output Total 1510 / 1510 135 / 135 80 / 80
Balance 1160 / 1160 -15 / -15 1180 / 1180
Intake:
Oral fluids 240 / 240 30 / 30 60 / 60
IV fluids (Total) 2280 / 2280 1000 / 1000
IV piggybacks 200 / 200
Amount instilled into GI Tube ( 150 / 150 90 / 90
Total)
[place] Sump 150 / 150 90 / 90
Output:
Drain Output (Total) 60 / 60 25 / 25 5 / 5
Right Lower Abdomen Darius- 60 / 60 25 / 25 5 / 5
[place]
Gastrointestinal tube output ( 375 / 375 110 / 110 75 / 75
Total)
[place] Sump 375 / 375 110 / 110 75 / 75
Urine, Cruz 1075 / 1075
Other:
Number of approximated SMALL 1 1
amounts of urine
Number of approximated MODERATE 1 2
amounts of urine
Number of approximated LARGE 1
amounts of urine
Vital Signs
Temp Pulse Resp BP Pulse Ox
97.8 F 70 16 158/77 98
02/21/25 03:05 02/21/25 05:28 02/21/25 03:05 02/21/25 05:28 02/21/25 03:05
Calcium 8.5 mg/dl (8.4-10.2) 02/20/25 06:28
Magnesium 2.7 mg/dl (1.6-2.3) H 02/18/25 06:37
Total Bilirubin 0.5 mg/dl (0.2-1.3) 02/08/25 06:58
AST 30 U/L (14-36) 02/08/25 06:58
ALT 38 U/L (0-35) H 02/08/25 06:58
Alkaline Phosphatase 131 U/L (38-126) H 02/08/25 06:58
Total Protein 7.5 g/dl (6.3-8.2) 02/08/25 06:58
Albumin 3.9 g/dl (3.5-5.0) 02/08/25 06:58
Physical Exam
-
NAD AAOx3
ABD: soft, ND, mild TTP generalized
midline incision closed with enrique, minimal cyanosis at skin edges only
no erythema, no significant drainage
PRINCE with SSF - stripped
Patient has a cruz catheter: No
[2025-02-21 07:11] LABS: Hematocrit 29.3 % (37.0-47.0); Hemoglobin 9.3 g/dL (12.0-16.0); Mean Corp Hgb Conc. 31.7 g/dL (33.0-37.0); Mean Corpuscular Volume 90.2 fL (81.0-99.0); Platelet Count 366 10^3/uL (130-400); Red Cell Dist. Width 13.5 % (11.5-14.5)
[2025-02-21 07:51] VITALS: BP 159/85
[2025-02-21 08:05] LABS: Blood Urea Nitrogen 16 mg/dl (7-17); Calcium 9.0 mg/dl (8.4-10.2); Carbon Dioxide 23 mmol/L (22-30); Chloride 106 mmol/L (98-107); Estimated Creatinine Clearance 72 ml/min; Glucose 56 mg/dl (70-99); Potassium 3.1 mmol/L (3.5-5.1); Sodium 135 mmol/L (135-145); eGFR > 60.00
--- NOTE | 2025-02-21 09:18 | W.PN.CRS1 ---
Today's Communication / Plan
-
clear liquids
OOB with PT
Assessment/Plan
-
POD#4 exlap, lysis of adhesions, reversal of colostomy, take-down of splenic flexure, flexible sigmoidoscopy; repair of incisional hernia by Rahul; cystoscopy and b/l ureteral stents by Vince
Vitals: normal
WBC: 10.8 ( 18.8, 19.4), Hgb 9.3 (9.5, 10.2)
-NGT removed yesterday. Started on clears today.
-Pain control: Tylenol standing, Dilaudid PRN. Toradol held given creatinine rise (1.1 from 0.9)
-OOB with PT
-Voiding post cruz removal
-Trend labs
-Maintain PRINCE drain for now - will remove prior to d/c if okay with general surgery
-Lovenox for DVT prophylaxis. TEDS/SCDs in place.
-OR pathology pending
-Dispo: home with PT vs SNF
Subjective Data
Procedure
02/17/2025- exlap, lysis of adhesions, reversal of colostomy, take-down of splenic flexure, flexible sigmoidoscopy; repair of incisional hernia by Rahul; cystoscopy and b/l ureteral stents by Vince
Subjective Data
Date of Service: February 21, 2025
Patient states she feels well today. She is excited to drink coffee. Denies nausea or vomiting. Pain is controlled. Denies nausea or vomiting. Passing flatus.
Objective Data
-
Vital Signs
Temp Pulse Resp BP Pulse Ox
98.5 F 70 16 159/85 96
02/21/25 07:51 02/21/25 07:51 02/21/25 07:51 02/21/25 07:51 02/21/25 07:51
Intake & Output
02/20/25 02/21/25 02/22/25
06:59 06:59 06:59
Intake Total 120 / 120 1260 / 1260
Output Total 135 / 135 80 / 80
Balance -15 / -15 1180 / 1180
Intake:
Oral fluids 30 / 30 60 / 60
IV fluids (Total) 1000 / 1000
IV piggybacks 200 / 200
Amount instilled into GI Tube (
Total)
[place] Sump
Output:
Drain Output (Total)
Right Lower Abdomen Darius-
[place]
Gastrointestinal tube output ( 110 / 110 75 / 75
Total)
[place] Sump 110 / 110 75 / 75
Other:
Number of approximated SMALL 1 1
amounts of urine
Number of approximated MODERATE 1 2
amounts of urine
Number of approximated LARGE 1
amounts of urine
Lab Results
02/21/25 06:37
02/21/25 06:38
Physical Exam
-
General: No Acute Distress and AOx3
Abdomen: Soft, Non Distended, Non Tender and Other (midline incision with enrique, PRINCE drain serosanginous)
Skin: Warm
Incision: Clear, Dry, Intact
[2025-02-21] MEDS: TYLENOL 650 MG PO ×3 (09:36→19:59)
[2025-02-21] MEDS: NEURONTIN 100 MG PO ×2 (09:36→19:59)
[2025-02-21] MEDS: NSS (PRESERVATIVE FREE) IV (09:36)
[2025-02-21] MEDS: PROTONIX IV IV (09:36)
[2025-02-21 09:48] LABS: Glucose - Point of Care 88 mg/dl (70-99)
[2025-02-21 11:30] VITALS: BP 160/96
[2025-02-21] MEDS: NSS (PRESERVATIVE FREE) 10 ML IV (11:37)
[2025-02-21] MEDS: PROTONIX IV 40 MG IV (11:37)
[2025-02-21] MEDS: TYLENOL PO (12:49)
[2025-02-21 15:31] VITALS: BP 149/91
[2025-02-21] MEDS: NSS IV (16:38)
[2025-02-21] MEDS: LOVENOX 40 MG SC (17:11)
[2025-02-21 19:05] VITALS: BP 143/82
[2025-02-21] MEDS: NORVASC 5 MG PO (22:00)
[2025-02-21] MEDS: ASPIR LOW (ENTERIC COATED) 81 MG PO (22:00)
[2025-02-21 23:06] VITALS: BP 158/79
[2025-02-22] MEDS: TYLENOL PO (00:56)
[2025-02-22 03:05] VITALS: BP 166/80
[2025-02-22] MEDS: TYLENOL 650 MG PO ×4 (04:00→20:02)
[2025-02-22 06:00] VITALS: BMI 20.8
[2025-02-22 07:30] VITALS: BP 166/90
--- NOTE | 2025-02-22 07:38 | W.PN.GS2 ---
Today's Communication / Plan
-
`
Assessment / Plan
-
79 yo female presenting for colostomy takedown and repair of incisional hernia
POD #5 open lysis of adhesions, reversal of colostomy, take-down of splenic flexure, flexible sigmoidoscopy (Johs); repair of incisional hernia (Rahul); cystoscopy and b/l ureteral stents (Vince)
AFVSS
overall doing well post op, signs of returning GI function
AM labs pending
PRINCE with expected character/quantity of drainage
Plan:
low residue diet
consult case management for VN and home PT
OOB/ambulate. PT following
PPI for GI ppx
c/w PRINCE
Lovenox/SCDs for VTE ppx
probable d/c in 24-36hrs if shahida dietary advancement
Subjective Data
-
Date of Service: February 22, 2025
pt seen and examined
daughter at bedside
shahida full liquids, requesting diet advancement
no nausea
+fl and BM yesterday
Objective Data
-
Intake and Output
02/21/25 02/22/25 02/23/25
06:59 06:59 06:59
Intake Total 1260 / 1260 1117 / 1117
Output Total 80 / 80
Balance 1180 / 1180 1112 / 1112
Intake:
Oral fluids 60 / 60 717 / 717
IV fluids (Total) 1000 / 1000 400 / 400
IV piggybacks 200 / 200
Output:
Drain Output (Total)
Right Lower Abdomen Darius-
[place]
Gastrointestinal tube output ( 75 / 75
Total)
[place] Sump 75 / 75
Other:
Number of approximated SMALL 1
amounts of urine
Number of approximated MODERATE 2 4
amounts of urine
Number of approximated LARGE 1
amounts of urine
Vital Signs
Temp Pulse Resp BP Pulse Ox
98.4 F 70 16 166/80 98
02/22/25 03:05 02/22/25 03:05 02/22/25 03:05 02/22/25 03:05 02/22/25 03:05
Calcium 9.0 mg/dl (8.4-10.2) 02/21/25 06:38
Magnesium 2.7 mg/dl (1.6-2.3) H 02/18/25 06:37
Total Bilirubin 0.5 mg/dl (0.2-1.3) 02/08/25 06:58
AST 30 U/L (14-36) 02/08/25 06:58
ALT 38 U/L (0-35) H 02/08/25 06:58
Alkaline Phosphatase 131 U/L (38-126) H 02/08/25 06:58
Total Protein 7.5 g/dl (6.3-8.2) 02/08/25 06:58
Albumin 3.9 g/dl (3.5-5.0) 02/08/25 06:58
Physical Exam
-
NAD AAOx3
ABD: soft, ND, mild generalized tenderness on palpation
midline incision with enrique, skin edges approximated, no erythema, no drainage, isolated areas of skin cyanosis at edges
skin flaps with some ecchymosis but no cyanosis off midline
PRINCE with sanguinous output - stripped
[2025-02-22 07:47] LABS: Hematocrit 30.8 % (37.0-47.0); Hemoglobin 10.2 g/dL (12.0-16.0); Mean Corp Hgb Conc. 33.1 g/dL (33.0-37.0); Mean Corpuscular Volume 84.6 fL (81.0-99.0); Platelet Count 411 10^3/uL (130-400); Red Cell Dist. Width 13.2 % (11.5-14.5)
[2025-02-22] MEDS: NEURONTIN 100 MG PO ×2 (08:07→20:01)
[2025-02-22] MEDS: PROTONIX IV 40 MG IV (08:07)
[2025-02-22] MEDS: NSS (PRESERVATIVE FREE) 10 ML IV (08:07)
[2025-02-22 08:26] LABS: Blood Urea Nitrogen 13 mg/dl (7-17); Calcium 9.0 mg/dl (8.4-10.2); Carbon Dioxide 29 mmol/L (22-30); Chloride 100 mmol/L (98-107); Estimated Creatinine Clearance 71 ml/min; Glucose 102 mg/dl (70-99); Potassium 3.0 mmol/L (3.5-5.1); Sodium 134 mmol/L (135-145); eGFR > 60.00
--- NOTE | 2025-02-22 09:27 | W.PN.CRS1 ---
Today's Communication / Plan
-
Regular diet
Replete potassium
Dispo planning
Assessment/Plan
-
POD# 5 exlap, lysis of adhesions, reversal of colostomy, take-down of splenic flexure, flexible sigmoidoscopy; repair of incisional hernia by Rahul; cystoscopy and b/l ureteral stents by Vince
Vitals: normal
WBC: 8.4 (10.8, 18.8, 19.4), Hgb 10.2 (9.3, 9.5, 10.2)
Potassium: 3.0
- Diet advanced to regular
-Pain control: Tylenol standing, Dilaudid PRN. Toradol held given creatinine rise (1.1 from 0.9)
-OOB with PT
-Voiding post cruz removal
-Trend labs. Hypokalemia with a potassium of 3.0. Repleted with 20 meq of potassium. Will recheck tomorrow.
-Maintain PRINCE drain for now -removal per general surgery
-Lovenox for DVT prophylaxis. TEDS/SCDs in place.
-OR pathology pending
-Dispo: home with PT vs SNF, anticipate as soon as tomorrow
Subjective Data
Procedure
02/17/2025- exlap, lysis of adhesions, reversal of colostomy, take-down of splenic flexure, flexible sigmoidoscopy; repair of incisional hernia by Rahul; cystoscopy and b/l ureteral stents by Vince
Subjective Data
Date of Service: February 22, 2025
Patient states she feels good overall today. She denies nausea or vomiting. Her pain is controlled. Denies nausea or vomiting. She has bowel function and had a loose stool yesterday.
Objective Data
-
Vital Signs
Temp Pulse Resp BP Pulse Ox
98 F 115 16 166/90 97
02/22/25 07:30 02/22/25 07:30 02/22/25 07:30 02/22/25 07:30 02/22/25 07:30
Intake & Output
02/21/25 02/22/25 02/23/25
06:59 06:59 06:59
Intake Total 1260 / 1260 1117 / 1117
Output Total 80 / 80
Balance 1180 / 1180 1112 / 1112 -
Intake:
Oral fluids 60 / 60 717 / 717
IV fluids (Total) 1000 / 1000 400 / 400
IV piggybacks 200 / 200
Output:
Drain Output (Total)
Right Lower Abdomen Darius-
[place]
Gastrointestinal tube output ( 75 / 75
Total)
[place] Sump 75 / 75
Other:
Number of approximated SMALL 1
amounts of urine
Number of approximated MODERATE 2 4 1
amounts of urine
Number of approximated LARGE 1
amounts of urine
Lab Results
02/22/25 06:57
02/22/25 06:57
Physical Exam
-
General: No Acute Distress and AOx3
Abdomen: Soft, Non Distended, Non Tender and Other (PRINCE drain serosanguineous)
Skin: Warm and Dry
[2025-02-22] MEDS: KLOR-CON 20 MEQ PO (10:16)
[2025-02-22 11:20] VITALS: BP 151/88
--- NOTE | 2025-02-22 14:59 | CM ---
Addendum entered by Esther Weber 02/23/25 13:24:
[facility]
fax# [phone]
Original Note:
CM following re: discharge planning.
Reviewed pt's chart, met with pt.
pt is aware she will need VN services for PRINCE care and pt stated she is current with [facility] and she preferred [facility]. A referral to [facility] made.
D/C plan: home with [facility] or PRINCE care and family support.
CM will follow with discharge plan updates as hospitalization progresses
[2025-02-22] MEDS: LOVENOX 40 MG SC (17:04)
[2025-02-22 19:27] VITALS: BP 146/85
[2025-02-22] MEDS: ASPIR LOW (ENTERIC COATED) 81 MG PO (20:02)
[2025-02-22] MEDS: NORVASC 5 MG PO (20:02)
[2025-02-22 23:17] VITALS: BP 133/69
[2025-02-23] MEDS: TYLENOL 650 MG PO (01:55)
[2025-02-23 03:03] VITALS: BP 148/81
[2025-02-23 05:20] VITALS: BMI 20.8
[2025-02-23 06:56] LABS: Blood Urea Nitrogen 19 mg/dl (7-17); Calcium 9.6 mg/dl (8.4-10.2); Carbon Dioxide 32 mmol/L (22-30); Chloride 99 mmol/L (98-107); Estimated Creatinine Clearance 61 ml/min; Glucose 135 mg/dl (70-99); Potassium 3.5 mmol/L (3.5-5.1); Sodium 135 mmol/L (135-145); eGFR > 60.00
[2025-02-23 08:00] VITALS: BP 120/73
[2025-02-23] MEDS: PROTONIX 40 MG PO (08:26)
[2025-02-23] MEDS: NEURONTIN 100 MG PO (08:26)
--- NOTE | 2025-02-23 09:03 | W.PN.GS2 ---
Today's Communication / Plan
-
`
Assessment / Plan
-
79 yo female presenting for colostomy takedown and repair of incisional hernia
POD #6 open lysis of adhesions, reversal of colostomy, take-down of splenic flexure, flexible sigmoidoscopy (Josh); repair of incisional hernia (Rahul); cystoscopy and b/l ureteral stents (Vince)
AFVSS
PRINCE with expected character/quantity of drainage
Plan:
low residue diet
okay with d/c from gen surg standpoint
follow up with myself next week for PRINCE removal
Subjective Data
-
Date of Service: February 23, 2025
pt seen and examined
states she is feeling well post op
+fl and BMs
shahida PO intake and pain controlled
Objective Data
-
Intake and Output
02/22/25 02/23/25 02/24/25
06:59 06:59 06:59
Intake Total 1117 / 1117 960 / 960
Output Total
Balance 1112 / 1112 935 / 935
Intake:
Oral fluids 717 / 717 960 / 960
IV fluids (Total) 400 / 400
Output:
Drain Output (Total)
Right Lower Abdomen Darius-
[place]
Other:
How many times incontinent 1
MODERATE amount urine
Number of approximated SMALL 1
amounts of urine
Number of approximated MODERATE 4 1
amounts of urine
Vital Signs
Temp Pulse Resp BP Pulse Ox
97.8 F 81 20 120/73 98
02/23/25 08:00 02/23/25 08:00 02/23/25 08:00 02/23/25 08:00 02/23/25 08:00
Lab Results
02/22/25 06:57
02/23/25 05:46
Calcium 9.6 mg/dl (8.4-10.2) 02/23/25 05:46
Magnesium 2.7 mg/dl (1.6-2.3) H 02/18/25 06:37
Total Bilirubin 0.5 mg/dl (0.2-1.3) 02/08/25 06:58
AST 30 U/L (14-36) 02/08/25 06:58
ALT 38 U/L (0-35) H 02/08/25 06:58
Alkaline Phosphatase 131 U/L (38-126) H 02/08/25 06:58
Total Protein 7.5 g/dl (6.3-8.2) 02/08/25 06:58
Albumin 3.9 g/dl (3.5-5.0) 02/08/25 06:58
Physical Exam
-
NAD AAOx3
ABD: softly distended with some typany. mild TTP, no R/R/G
incision with enrique, no drainage
LUQ old ostomy site open - clean
PRINCE with SSF
--- NOTE | 2025-02-23 09:26 | W.PN.CRS1 ---
Today's Communication / Plan
-
discharge home with PRINCE
Assessment/Plan
-
POD# 6 exlap, lysis of adhesions, reversal of colostomy, take-down of splenic flexure, flexible sigmoidoscopy; repair of incisional hernia by Rahul; cystoscopy and b/l ureteral stents by Vince
Vitals: normal
BMP - wnl
- Diet advanced to regular
-Pain control: Tylenol standing, Dilaudid PRN.
-OOB with PT
-Trend labs. Hypokalemia resolved.
-Maintain PRINCE drain for now -removal per general surgery in the office next week
-Lovenox for DVT prophylaxis. TEDS/SCDs in place.
-OR pathology pending
-Dispo: home with VN today. All discharge discussed with patient including medications, activity levels, and follow up. All questions answered.
Subjective Data
Procedure
02/17/2025- exlap, lysis of adhesions, reversal of colostomy, take-down of splenic flexure, flexible sigmoidoscopy; repair of incisional hernia by Rahul; cystoscopy and b/l ureteral stents by Vince
Subjective Data
Date of Service: February 23, 2025
Patient states she feels well. She denies nausea or vomiting. Her pain is controlled. She is tolerating a diet. She is mildly bloated. Has flatus and bowel movements.
Objective Data
-
Vital Signs
Temp Pulse Resp BP Pulse Ox
97.8 F 81 20 120/73 98
02/23/25 08:00 02/23/25 08:00 02/23/25 08:00 02/23/25 08:00 02/23/25 08:00
Intake & Output
02/22/25 02/23/25 02/24/25
06:59 06:59 06:59
Intake Total 1117 / 1117 960 / 960
Output Total
Balance 1112 / 1112 935 / 935
Intake:
Oral fluids 717 / 717 960 / 960
IV fluids (Total) 400 / 400
Output:
Drain Output (Total)
Right Lower Abdomen Darius-
[place]
Other:
How many times incontinent 1
MODERATE amount urine
Number of approximated SMALL 1
amounts of urine
Number of approximated MODERATE 4 1
amounts of urine
Lab Results
02/22/25 06:57
02/23/25 05:46
Physical Exam
-
General: No Acute Distress and AOx3
Abdomen: Soft, Non Distended, Non Tender and Other (PRINCE serosanginoous)
Wound: No Signs of Infection and Dressing in Place
[2025-02-23 11:59] VITALS: BP 149/85
--- NOTE | 2025-02-23 14:09 | CM ---
Addendum entered by Ivory Noble 02/23/25 17:00:
Discharge to home today w/ home health
Original Note:
Chart reviewed; anticipate discharge to home today with home health; preference is [facility]; referral was sent and acknowledged
Met with patient at bedside; she reported her daughter will provide transport home
IMM benefit explained; form signed @ [id number]
Plan: Discharge to home today with [facility]
[2025-02-23 15:16] VITALS: BP 164/86
[2025-02-23 15:51] VITALS: BP 132/80
== END 2025-02-23 17:13 | disposition home health service (06) | DRG 330 ==
LOC: 2 SOUTH 05:49
PROVIDERS: Physician Assistant; Registered Nurse; Specialist; Surgery; ADMITTING PHYSICIAN Surgery; FAMILY PHYSICIAN Family Medicine
PROC: 0DSM0ZZ Reposition Descending Colon, Open Approach (ICD-10-PCS; 2025-02-17)
PROC: 0WUF0JZ Supplement Abdominal Wall with Synthetic Substitute, Open Approach (ICD-10-PCS; 2025-02-17)
PROC: 0T788DZ Dilation of Bilateral Ureters with Intraluminal Device, Via Natural or Artificial Opening Endoscopic (ICD-10-PCS; 2025-02-17)
PROC: 0DN80ZZ Release Small Intestine, Open Approach (ICD-10-PCS; 2025-02-17)
PROC: 0DJD8ZZ Inspection of Lower Intestinal Tract, Via Natural or Artificial Opening Endoscopic (ICD-10-PCS; 2025-02-17)
PROC: 0DQ80ZZ Repair Small Intestine, Open Approach (ICD-10-PCS; 2025-02-17)
PROC: 0DBP0ZZ Excision of Rectum, Open Approach (ICD-10-PCS; 2025-02-17)
PROC: 0DNU0ZZ Release Omentum, Open Approach (ICD-10-PCS; 2025-02-17)
PROC: 0DNP0ZZ Release Rectum, Open Approach (ICD-10-PCS; 2025-02-17)
DX: Z43.3 Encounter for attention to colostomy (principal); D62 Acute posthemorrhagic anemia; E87.1 Hypo-osmolality and hyponatremia; J84.9 Interstitial pulmonary disease, unspecified; K91.81 Other intraoperative complications of digestive system; K43.2 Incisional hernia without obstruction or gangrene; E78.5 Hyperlipidemia, unspecified; J47.9 Bronchiectasis, uncomplicated; I10 Essential (primary) hypertension; D72.829 Elevated white blood cell count, unspecified; N73.6 Female pelvic peritoneal adhesions (postinfective); K66.0 Peritoneal adhesions (postprocedural) (postinfection); Z60.2 Problems related to living alone; Z87.01 Personal history of pneumonia (recurrent); Z90.49 Acquired absence of other specified parts of digestive tract; Z79.82 Long term (current) use of aspirin
CPT/HCPCS: 71046; 80048; 80053; 82962; 83036; 83735; 85025; 85027; 85610; 85730; 86850; 86900; 86901; 88307; 97110; 97116; 97162; 97166; 97535; C1781